=== PATIENT | male | born 1955 | race Caucasian/White ===

== ENCOUNTER 2018-03-15 11:35 | Inpatient (IN) | payer OTHER ==
[2018-03-15 11:45] VITALS: BMI 33.4
--- NOTE | 2018-03-15 11:58 | PDOC ---
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 Mckenzie's office after a lab test this week with creatinine of 4. Pt states he has been feeling more fatigued over the past few weeks. Dr. Mckenzie has made recent changes to his medications , including dc his carvedilol and pausing his atorvastatin due to the fatigue. The pt takes his glucose at home and is normally 100-140 in the AM. Pt denies any fevers/chills, headache, vision changes, syncope, chest pain, palpitations, SOB, nausea/vomiting, abdominal pain, urinary symptoms, diarrhea/constipation, or leg swelling. Social: Pt denies any cigarette, alcohol, or drug use. Pt denies any recent travel or sick contacts. Surgical: nephrectomy, 2 bowel obstructions. Family: no relevant history. 03/15/18 12:59 Past History - Past Medical History Allergies/Adverse Reactions: Allergies Allergy/AdvReac Type Severity Reaction Status Date / Time No Known Allergies Allergy Verified 03/15/18 11:45 Home Medications: Ambulatory Orders Aspirin [Ecotrin] 81 mg PO DAILY 09/03/15 Amlodipine Besylate 5 mg PO DAILY 10/06/15 Atorvastatin Ca [Lipitor] 20 mg PO HS 03/15/18 Cyanocobalamin [Vitamin B12 -] 1,000 mcg PO DAILY 03/15/18 [place]-3 Fatty Acids/Fish Oil [Fish Oil 1,000 mg Capsule] 1 each PO DAILY Anemia: No Asthma: No Cancer: No Cardiac Disorders: No CVA: No COPD: No CHF: No Dementia: No Diabetes: Yes GI Disorders: No Disorders: No HTN: Yes Hypercholesterolemia: Yes Liver Disease: No Seizures: No - Surgical History Abdominal Surgery: No Appendectomy: Yes Cardiac Surgery: No Cholecystectomy: No Lung Surgery: No Neurologic Surgery: No Orthopedic Surgery: Yes (rotator cuff right shoulder) - Suicide/Smoking/Psychosocial Hx Smoking History: Never smoked Have you smoked in the past 12 months: No Number of Cigarettes Smoked Daily: 0 Hx Alcohol Use: No Drug/Substance Use Hx: No Substance Use Type: None Hx Substance Use Treatment: No Review of Systems - Review of Systems Able to Perform ROS?: Yes Is the patient limited Russian proficient: No Constitutional: Yes: See HPI, Malaise, Weight Stable. No: Chills, Diaphoresis, Fever, Loss of Appetite, Weakness HEENTM: No: Blurred Vision, Recent change in vision, Double Vision, Nose Congestion, Throat Pain, Throat Swelling Respiratory: No: Cough, Orthopnea, Shortness of Breath Cardiac (ROS): No: Chest Pain, Edema, Irregular Heart Rate, Lightheadedness, Palpitations, Syncope, Chest Tightness ABD/GI: No: Constipated, Diarrhea, Nausea, Poor Appetite, Poor Fluid Intake, Vomiting, Abdominal cramping : No: Burning, Dysuria, Pain, Urgency Musculoskeletal: No: Back Pain, Joint Pain, Muscle Pain, Muscle Weakness Integumentary: Yes: Other (Healing ulcer on bottom of L great toe, no redness or drainage). No: Rash Neurological: No: Headache, Numbness, Paresthesia, Seizure, Tingling, Tremors, Weakness (generalized fatigue, no muscle weakness), Unsteady Gait, Ataxia, Dizziness Psychiatric: No: Sleep Pattern Change, Change in Appetite Endocrine: No: Increased Thirst, Increased Urine, Change in Weight Hematologic/Lymphatic: No: Anemia, Blood Clots, Easy Bleeding, Easy Bruising All Other Systems: Reviewed and Negative *Physical Exam - Vital Signs Last Vital Signs Temp Pulse Resp BP Pulse Ox 98.2 F 118 H 18 176/90 H 98 03/15/18 11:43 03/15/18 11:43 03/15/18 11:43 03/15/18 11:43 03/15/18 11:43 - Physical Exam Comments: HR 118, BP 176/90 (improved to 150/80 and HR 100 on exam), pt afebrile. Pt in NAD, overweight. PE showed pt alert and oriented. contractor general engineering generally intact, muscular strength and sensation intact. No decreased sensation over the LE or feet b/l. Oropharynx without erythema or exudates. No nasal congestion, hearing intact. Clear heart sounds, S1/S2, no JVD, b/l pedal edema, or heart murmur. Clear lung sounds, no respiratory distress, wheezes, crackles, accessory muscle use, or respiratory distress. No abdominal or CVA tenderness to palpation, no rebound, no guarding. Abdomen soft, but protuberant, and with normoactive bowel sounds. Skin without jaundice or rash. Small (stage 2) ulcer on R great toe, appears well-healing, no erythema, warmth, or drainage. 03/15/18 13:04 Moderate Sedation - Procedure Monitoring Vital Signs: Procedure Monitoring Vital Signs Temperature 98.2 F 03/15/18 11:43 Pulse Rate 118 H 03/15/18 11:43 Respiratory Rate 18 03/15/18 11:43 Blood Pressure 176/90 H 03/15/18 11:43 O2 Sat by Pulse Oximetry (%) 98 03/15/18 11:43 ED Treatment Course - LABORATORY CBC & Chemistry Diagram: 03/15/18 12:27 03/15/18 12:27 Medical Decision Making - Medical Decision Making Pt was seen at bedside, also will be seen by attending Dr. Lewis. Pt presenting as a follow-up from Dr. Mckenzie's office after a lab test this week with creatinine of 4. Pt states he has been feeling more fatigued over the past few weeks. Dr. Mckenzie has made recent changes to his medications, including dc his carvedilol and pausing his atorvastatin due to the fatigue. The pt takes his glucose at home and is normally 100-140 in the AM. Pt denies any fevers/ chills, headache, vision changes, syncope, chest pain, palpitations, SOB, nausea /vomiting, abdominal pain, urinary symptoms, diarrhea/constipation, or leg swelling. HR 118, BP 176/90 (improved to 150/80 and HR 100 on exam), pt afebrile. Pt in NAD, overweight. PE showed pt alert and oriented. contractor general engineering generally intact, muscular strength and sensation intact. Oropharynx without erythema or exudates. No nasal congestion, hearing intact. Clear heart sounds, S1/S2, no JVD , b/l pedal edema, or heart murmur. Clear lung sounds, no respiratory distress, wheezes, crackles, accessory muscle use, or respiratory distress. No abdominal or CVA tenderness to palpation, no rebound, no guarding. Abdomen soft, but protuberant, and with normoactive bowel sounds. Skin without jaundice or rash. Small (stage 2) ulcer on R great toe, appears well-healing, no erythema, warmth , or drainage. Likely worsening renal function 2/2 CKD/Wilmm's Tumor; Fatigue could be 2/2 to a variety of factors including CKD, anemia, infection, ACS, new HF. Pt was initially HTN and tachycardic, consider PE, but vitals are improving now that he is less anxious. Will keep on the differential. Ordered work-up including CBC, CMP, Mg, Phos, PT/INR, cardiac profile, ECG, UA, urine culture. No interventions needed at this time. Pt BP and HR improving, will monitor for needed interventions. Will continue to reassess pt and monitor for symptomatic improvement. ECG: Sinus tachycardia, HR 105, intervals WNL. No TWIs or significant ST segment changes. 03/15/18 12:35 CMP: K 4.6, BUN 51, Cr 4.6 (was 1.5-2.1 in [id number]) Trop .06, CK 413 -- likely demand and worsening CKD UA: 3+ protein, 3+ glucose, 2+ blood 03/15/18 13:11 H/H WNL, no anemia CK index 4.4, CKMB 18.4 Will provide aspirin, pt took 81 mg this AM. 03/15/18 13:[address] Mckenzie for admission -- paged at 13:[address] Mckenzie, prefers Dr. Silva/Joseph team for admission. Paging Shira/Joseph team 13:53 03/15/18 13:53 Dr. Ruiz/Shira team accepted pt for admission (spoke with LAB TECH for team) Consults placed for nephro (Dr. Bess) and cards (Dr. Quigley) Pt comfortable, on telemetry box. Ordered second troponin test. 03/15/18 13:59 *DC/Admit/Observation/Transfer Diagnosis at time of Disposition: Acute kidney injury superimposed on chronic kidney disease, Elevated serum creatinine, Troponin I above reference range - Discharge Dispostion Condition at time of disposition: Stable Decision to Admit order: Yes - Referrals Referrals: Flex Mckenzie MD [Primary Care Provider] - - Patient Instructions - Post Discharge Activity
--- NOTE | 2018-03-15 12:29 | PDOC ---
Attending Attestation - Resident Resident Name: Gretchen Vance - ED Attending Attestation I have performed the following: I have examined & evaluated the patient, The case was reviewed & discussed with the resident, I agree w/resident's findings & plan, Exceptions are as noted - Physicial Exam PE: 03/15/18 13:23 awake alert lungs clear bilaterally heart rrr no mrg abd soft nt nd. ext wwp. bilat leg edema. right foot with chronic ankle deformity. nuero alert oriented x 3. skin warm and dry. - Medical Decision Making 03/15/18 13:23 62 yo male wit h/o HTN HLD DM single kidney ( wilms tumor as chilc nephrectomy) here with worsenign renal failure. pt describing intermittent sob, fatigue, anorexia. no f/c no chest pain no mod factors. on exam awake alert lungs clear bilaterally abd soft obese. skin warm an dry differential anemia. worsenign renal failure. pulm edema. dave, infection . plan labs ekg cxr trop. will likely require admission. renal failure with creatinine 4. katia admit cosult nephrology will dr. 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 Damon office with abnormal lab results. The patient was seen at the PCPs office where he had blood work done. The blood work was significant for Creatinine level of 4. The patient reports associated symptoms of feeling fatigue. Denies fever, chills, urinary symptoms, nausea, vomiting, chest pain. Allergies: NKDA PCP: Dr. Ornelas. - Medical Decision Making 03/15/18 13:37 Documentation prepared by Tiny Quevedo, acting as director of medical review for Cheyenne Lewis MD. <Tiny Quevedo - Last Filed: 03/15/18 13:37> Heart Score/ECG Review #1 General ECG Interpretation: Sinus Rhythm, Normal Intervals, No acute ischemic changes Compared to previous ECG there are: Other (sinus tachycardia 105.) <Cheyenne Lewis - Last Filed: 03/15/18 13:22>
[2018-03-15 12:50] LABS: INR 1.03 (0.83-1.09); PROTHROMBIN TIME (PATIENT) 12.1 SEC (9.7-13.0)
[2018-03-15 12:56] LABS: ALBUMIN 3.2 g/dl (3.4-5.0); ALK PHOS 148 U/L (45-117); ANION GAP 8 MMOL/L (8-16); BILIRUBIN,TOTAL 0.3 mg/dL (0.2-1); BLOOD UREA NITROGEN 51 mg/dL (7-18); CALCIUM 8.7 mg/dL (8.5-10.1); CHLORIDE 109 mmol/L (98-107); CO2 23 mmol/L (21-32); CREATININE 4.6 mg/dL (0.55-1.3); GLUCOSE,RANDOM 137 mg/dL (74-106); MAGNESIUM 2.2 mg/dL (1.8-2.4); PHOSPHOROUS 3.8 mg/dL (2.5-4.9); POTASSIUM 4.6 mmol/L (3.5-5.1); SGOT/AST 27 U/L (15-37); SGPT/ALT 26 U/L (13-61); SODIUM 140 mmol/L (136-145); TOT PROT 6.5 g/dl (6.4-8.2)
[2018-03-15 13:06] LABS: URINE APPEARANCE SLCLOUDY; URINE BILIRUBIN NEGATIVE (<2.0 mg/dL); URINE COLOR LTYELLOW; URINE GLUCOSE (UA) 3+ (NEGATIVE); URINE KETONE NEGATIVE (NEGATIVE); URINE LEUK ESTERASE NEGATIVE (NEGATIVE); URINE NITRITE NEGATIVE (NEGATIVE); URINE PROTEIN 3+ (NEGATIVE); URINE UROBILINOGEN NEGATIVE mg/dL (0.2-1.0)
[2018-03-15 13:09] LABS: URINE BACTERIA RARE /hpf (NONE SEEN); URINE MUCUS RARE
[2018-03-15 13:15] LABS: BASO % 1.3 % (0-2.0); EOS % 2.7 % (0-4.5); HEMATOCRIT 39.6 % (35.4-49); HEMOGLOBIN 13.5 GM/dL (11.7-16.9); LYMPH % 12.7 % (8-40); MCH 28.5 pg (25.7-33.7); MCHC 34.2 g/dl (32.0-35.9); MEAN CELL VOLUME 83.3 fl (80-96); MEAN PLT VOLUME 7.5 fl (7.5-11.1); MONO % 6.5 % (3.8-10.2); NEUT % 76.8 % (42.8-82.8); PLATELET COUNT 238 K/MM3 (134-434); RBC 4.75 M/mm3 (4.00-5.60); RDW 14.3 % (11.9-15.9); WHITE BLOOD COUNT 6.2 K/mm3 (4.0-10.0)
[2018-03-15] MEDS ORDERED: ASPIRIN 81 MG CHEWABLE TABLETS PO ONE (13:19)
[2018-03-15] MEDS ORDERED: ASPIRIN 81 MG CHEWABLE TABLETS ONE (13:33)
[2018-03-15] MEDS ORDERED: amLODIPine BESYLATE 5 MG TABLET (FP) PO ONE (14:59)
[2018-03-15] MEDS ORDERED: amLODIPine BESYLATE 5 MG TABLET (FP) ONE (15:02)
--- NOTE | 2018-03-15 15:25 | CON.CARD ---
Consult Consult Specialty:: Cardiology - History of Present Illness History of Present Illness: 62 yo M, with PMH of HTN, HLD, IDDM with foot ulcers including osteomyelitis, and CKD who presenting as a follow-up from Dr. Mckenzie's office after a lab test this week with creatinine of 4. Pt states he has been feeling more fatigued over the past few weeks. Denies any fevers/chills, headache, vision changes, syncope, chest pain, palpitations, SOB, nausea/vomiting, abdominal pain , urinary symptoms, diarrhea/constipation, or leg swelling. - History Source History Provided By: Patient Limitations to Obtaining History: No Limitations - Past Medical History Cardio/Vascular: Yes: HTN, Hyperlipdemia Endocrine: Yes: Diabetes Mellitus - Alcohol/Substance Use Hx Alcohol Use: No - Smoking History Smoking history: Never smoked Have you smoked in the past 12 months: No Aproximately how many cigarettes per day: 0 Home Medications - Allergies Allergies/Adverse Reactions: Allergies Allergy/AdvReac Type Severity Reaction Status Date / Time No Known Allergies Allergy Verified 03/15/18 11:45 - Home Medications Home Medications: Ambulatory Orders Aspirin [Ecotrin] 81 mg PO DAILY 09/03/15 Amlodipine Besylate 5 mg PO DAILY 10/06/15 Atorvastatin Ca [Lipitor] 20 mg PO HS 03/15/18 Cyanocobalamin [Vitamin B12 -] 1,000 mcg PO DAILY 03/15/18 [place]-3 Fatty Acids/Fish Oil [Fish Oil 1,000 mg Capsule] 1 each PO DAILY Review of Systems - Review of Systems Constitutional: reports: No Symptoms Eyes: reports: No Symptoms HENT: reports: No Symptoms Neck: reports: No Symptoms Cardiovascular: reports: No Symptoms Respiratory: reports: No Symptoms Gastrointestinal: reports: No Symptoms Vital Signs: Vital Signs Temperature 98.2 F 03/15/18 11:43 Pulse Rate 88 03/15/18 14:59 Respiratory Rate 18 03/15/18 14:59 Blood Pressure 171/99 H 03/15/18 14:59 O2 Sat by Pulse Oximetry (%) 99 03/15/18 14:59 Constitutional: Yes: Well Nourished, No Distress, Calm Eyes: Yes: Conjunctiva Clear, EOM Intact HENT: Yes: Atraumatic, Normocephalic Neck: Yes: Supple, Trachea Midline Respiratory: Yes: Regular, CTA Bilaterally Gastrointestinal: Yes: Normal Bowel Sounds, Soft Cardiovascular: Yes: Regular Rate and Rhythm JVD: No Carotid Bruit: No PMI: Non-Displaced Heart Sounds: Yes: S1, S2 Murmur: No: Systolic Murmur, Diastolic Murmur Musculoskeletal: Yes: WNL Extremities: Yes: WNL Edema: No - Other Data Labs, Other Data: CBC, BMP 03/15/18 12:27 03/15/18 12:27 INR, PTT INR 1.03 (0.83-1.09) 03/15/18 12:27 Troponin, BNP 03/15/18 12:27 Troponin I 0.06 H Troponin, BNP 03/15/18 12:27 Troponin I 0.06 H Problem List - Problems (1) Acute kidney injury superimposed on chronic kidney disease Code(s): N17.9 - ACUTE KIDNEY FAILURE, UNSPECIFIED; N18.9 - CHRONIC KIDNEY DISEASE, UNSPECIFIED (2) Elevated serum creatinine Code(s): R79.89 - OTHER SPECIFIED ABNORMAL FINDINGS OF BLOOD CHEMISTRY Assessment/Plan 62 yo M, with PMH of HTN, HLD, IDDM with foot ulcers including osteomyelitis, and CKD who presenting as a follow-up from Dr. Mckenzie's office after a lab test this week with creatinine of 4. Pt states he has been feeling more fatigued over the past few weeks. Denies any fevers/chills, headache, vision changes, syncope, chest pain, palpitations, SOB, nausea/vomiting, abdominal pain , urinary symptoms, diarrhea/constipation, or leg swelling. A stress test in 2016 showed normal EF and perfusion. Continue to adjust BP medications with goal <140/80 Continue statin Not volume overloaded. Minimal TP elevation is in the setting of renal failure and non-ischemic. Call PRN
--- NOTE | 2018-03-15 17:23 | CON.NEP ---
Consult Consult Specialty:: nephrology Reason for Consultation:: ckd - History of Present Illness Chief Complaint: abnormal labs History of Present Illness: 62 yo M, with PMH of HTN, HLD, IDDM with foot ulcers including osteomyelitis, and CKD who presenting as a follow-up from Dr. Mckenzei's office after a lab test this week with creatinine of 4. Pt states he has been feeling more fatigued over the past few weeks. Denies any fevers/chills, headache, vision changes, syncope, chest pain, palpitations, SOB, nausea/vomiting, abdominal pain , urinary symptoms, diarrhea/constipation, or leg swelling. He also has history of wilms tumor and had anephrectomy at age 4 followed by radiation. He has no urinary complaints and has no dyspnea. Says he lost contact with doctors because he did not have insurance. In fact he fractured his ankle and did not seek medical attention and has chronic pain as a result. - History Source History Provided By: Patient Limitations to Obtaining History: No Limitations - Past Medical History Cardio/Vascular: Yes: HTN, Hyperlipdemia Renal/: Yes: Renal Inusuff, Other (wilms tumor) Musculoskeletal: Yes: Other (scoliosis) Endocrine: Yes: Diabetes Mellitus - Past Surgical History Past Surgical History: Yes: Nephrectomy - Alcohol/Substance Use Hx Alcohol Use: No - Smoking History Smoking history: Never smoked Have you smoked in the past 12 months: No Aproximately how many cigarettes per day: 0 Home Medications - Allergies Allergies/Adverse Reactions: Allergies Allergy/AdvReac Type Severity Reaction Status Date / Time No Known Allergies Allergy Verified 03/15/18 11:45 - Home Medications Home Medications: Ambulatory Orders Aspirin [Ecotrin] 81 mg PO DAILY 09/03/15 Amlodipine Besylate 5 mg PO DAILY 10/06/15 Atorvastatin Ca [Lipitor] 20 mg PO HS 03/15/18 Cyanocobalamin [Vitamin B12 -] 1,000 mcg PO DAILY 03/15/18 [place]-3 Fatty Acids/Fish Oil [Fish Oil 1,000 mg Capsule] 1 each PO DAILY Review of Systems - Review of Systems Constitutional: reports: No Symptoms Eyes: reports: No Symptoms HENT: reports: No Symptoms Neck: reports: No Symptoms Cardiovascular: reports: No Symptoms Respiratory: reports: No Symptoms Gastrointestinal: reports: No Symptoms Genitourinary: reports: No Symptoms Musculoskeletal: reports: Joint Swelling Integumentary: reports: No Symptoms Neurological: reports: No Symptoms Endocrine: reports: No Symptoms Hematology/Lymphatic: reports: No Symptoms Psychiatric: reports: No Symptoms Nephrology Consult - Height Height: 5 ft 8 in - Weight Weight: 220 lb - BMI Body Mass Index (BMI): 33.4 - Lab Results CBC,BMP: CBC, BMP 03/15/18 12:27 03/15/18 12:27 Anion Gap: Anion Gap Anion Gap 8 MMOL/L (8-16) 03/15/18 12:27 - Physical Examination Vital Signs: Vital Signs Temperature 98.2 F 03/15/18 11:43 Pulse Rate 88 03/15/18 14:59 Respiratory Rate 18 03/15/18 14:59 Blood Pressure 171/99 H 03/15/18 14:59 O2 Sat by Pulse Oximetry (%) 99 03/15/18 14:59 Constitutional: Yes: Well Nourished, No Distress, Calm Eyes: Yes: Conjunctiva Clear HENT: Yes: Atraumatic, Normocephalic Neck: Yes: Supple, Trachea Midline Cardiovascular: Yes: Regular Rate and Rhythm Respiratory: Yes: Regular, CTA Bilaterally Gastrointestinal: Yes: Normal Bowel Sounds Renal/: Yes: WNL Musculoskeletal: Yes: Other (fractured right ankle healed abnormally) Extremities: Yes: WNL Edema: No Integumentary: Yes: WNL Wound/Incision: Yes: Clean/Dry Neurological: Yes: Alert, Oriented Psychiatric: Yes: Alert, Oriented Assessment/Plan IMPRESSION Pt has renal insufficiency which is likely progression of kidney disease since he has been unable to get medical follow up. His hgb is great and he has no signs of uremia taht would require emergent hd PLAN would obtain renal sono repeat bmp in am check [id number] control BP- can add small dose of brando inhibitor and keep on amlodipine or switch to cardizem for additional antiproteinuric effect hemodialysis, peritoneal dialysis and transplantation discussed with pt would have vascular evaluate for future fistula MV
[2018-03-15] MEDS ORDERED: LISINOPRIL 5 MG TABLET (FP) PO ONE (17:43)
--- NOTE | 2018-03-15 18:22 | HP ---
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 Patient presented to ER as follow up from Dr. Mckenzie after labs last week show Cr level of 4. Patient complain of increased fatigue. Denies chest pain, SOB, or dizziness. History Source: Patient Limitations to Obtaining History: No Limitations - Past Medical History Cardiovascular: Yes: HTN, Hyperlipdemia Renal/: Yes: Renal Inusuff, Other (wilms tumor) Musculoskeletal: Yes: Other (scoliosis) Endocrine: Yes: Diabetes Mellitus - Past Surgical History Past Surgical History: Yes: Appendectomy, Nephrectomy - Smoking History Smoking history: Never smoked Have you smoked in the past 12 months: No Aproximately how many cigarettes per day: 0 - Alcohol/Substance Use Hx Alcohol Use: No - Social History Usual Living Arrangement: Yes: With Spouse ADL: Independent <May Sexton - Last Filed: 03/15/18 18:16> Home Medications <May Sexton - Last Filed: 03/15/18 18:16> <Michelle Ruiz - Last Filed: 03/16/18 09:10> - Allergies Allergies/Adverse Reactions: Allergies Allergy/AdvReac Type Severity Reaction Status Date / Time No Known Allergies Allergy Verified 03/15/18 11:45 - Home Medications Home Medications: Ambulatory Orders Aspirin [Ecotrin] 81 mg PO DAILY 09/03/15 Amlodipine Besylate 5 mg PO DAILY 10/06/15 Atorvastatin Ca [Lipitor] 20 mg PO HS 03/15/18 Cyanocobalamin [Vitamin B12 -] 1,000 mcg PO DAILY 03/15/18 [place]-3 Fatty Acids/Fish Oil [Fish Oil 1,000 mg Capsule] 1 each PO DAILY Review of Systems - Review of Systems Constitutional: reports: Other (fatigue) Eyes: reports: No Symptoms HENT: reports: No Symptoms Neck: reports: No Symptoms Cardiovascular: reports: No Symptoms Respiratory: reports: No Symptoms Gastrointestinal: reports: No Symptoms Genitourinary: reports: No Symptoms Breasts: reports: No Symptoms Reported Musculoskeletal: reports: No Symptoms Integumentary: reports: No Symptoms Neurological: reports: No Symptoms Endocrine: reports: No Symptoms Hematology/Lymphatic: reports: No Symptoms Psychiatric: reports: No Symptoms <May Sexton - Last Filed: 03/15/18 18:16> Physical Examination Vital Signs: Vital Signs Temperature 98.2 F 03/15/18 11:43 Pulse Rate 88 03/15/18 14:59 Respiratory Rate 18 03/15/18 14:59 Blood Pressure 171/99 H 03/15/18 14:59 O2 Sat by Pulse Oximetry (%) 99 03/15/18 14:59 Constitutional: Yes: Well Nourished, No Distress, Calm Eyes: Yes: Conjunctiva Clear HENT: Yes: Normocephalic Neck: Yes: Supple Cardiovascular: Yes: Regular Rate and Rhythm Respiratory: Yes: Regular, CTA Bilaterally Gastrointestinal: Yes: Normal Bowel Sounds, Soft Musculoskeletal: Yes: WNL, Joint Swelling Extremities: Yes: Other (R ankle swelling 2/2 abnormal healed fracture) Neurological: Yes: Alert, Oriented Psychiatric: Yes: Alert, Oriented Labs: CBC, BMP 03/15/18 12:27 03/15/18 12:27 Troponin, BNP 03/15/18 12:27 Troponin I 0.06 H <May Sexton - Last Filed: 03/15/18 18:16> Vital Signs: Vital Signs Temperature 98.0 F 03/16/18 06:00 Pulse Rate 93 H 03/16/18 06:00 Respiratory Rate 18 03/16/18 06:00 Blood Pressure 161/98 03/16/18 06:00 O2 Sat by Pulse Oximetry (%) 97 03/15/18 21:00 Labs: CBC, BMP 03/15/18 12:27 03/15/18 12:27 <Michelle Ruiz - Last Filed: 03/16/18 09:10> Problem List - Problems (1) Acute kidney injury superimposed on chronic kidney disease Assessment/Plan: -renal on board -pending renal US -BUN/Cr 51/4.6, will monitor Code(s): N17.9 - ACUTE KIDNEY FAILURE, UNSPECIFIED; N18.9 - CHRONIC KIDNEY DISEASE, UNSPECIFIED (2) Elevated serum creatinine Assessment/Plan: -renal on board -will trend Cr level -pending renal sono Code(s): R79.89 - OTHER SPECIFIED ABNORMAL FINDINGS OF BLOOD CHEMISTRY (3) Troponin I above reference range Assessment/Plan: -troponin 0.06, will trend -tele monitoring -cardiology consult appreciated Code(s): R74.8 - ABNORMAL LEVELS OF OTHER SERUM ENZYMES (4) Diabetes Assessment/Plan: -endocrinology consult -HgA1c ordered -diabetic diet -BGM ACHS, ISS Code(s): E11.9 - TYPE 2 DIABETES MELLITUS WITHOUT COMPLICATIONS Qualifiers: Diabetes mellitus type: type 1 Diabetes mellitus complication status: with skin complications Diabetes mellitus complication detail: with foot ulcer Qualified Code(s): E10.621 - Type 1 diabetes mellitus with foot ulcer (5) HTN (hypertension) Assessment/Plan: -cont amlodipine -VS q8h -if BP cont to stay elev will consider adding low dose MERRILL inhibitor Code(s): I10 - ESSENTIAL (PRIMARY) HYPERTENSION Qualifiers: Hypertension type: essential hypertension Qualified Code(s): I10 - Essential (primary) hypertension (6) Hypercholesterolemia Assessment/Plan: -cont atorvastatin -lipid panel ordered Code(s): E78.0 - PURE HYPERCHOLESTEROLEMIA * DO NOT USE * <May Sexton - Last Filed: 03/15/18 18:16> Assessment/Plan dvt ppx <May Sexton - Last Filed: 03/15/18 18:16> PATIENT SEEN AND EXAMINED AND I AGREE WITH THE ABOVE NOTE <Michelle Ruiz - Last Filed: 03/16/18 09:10>
--- NOTE | 2018-03-15 20:31 | CONSULT ---
Consult Consult Specialty:: endocrine Reason for Consultation:: dm2 uncontrolled - History of Present Illness Chief Complaint: shortness of breath advised to present to ed [facility] History of Present Illness: 62 yo M, with PMH of wilms tumor,sp nephrectomy,HTN, HLD, IDDM with foot ulcers including osteomyelitis, and CKD who presenting for evaluation bw performed as outpatient shows ARF,with creatinine of 4.HE has been feeling short of breath, and weak,high sugars on glucose checks, Denies any fevers/chills, headache, vision changes, syncope, - Past Medical History Cardio/Vascular: Yes: HTN, Hyperlipdemia Renal/: Yes: Renal Inusuff, Other (wilms tumor) Musculoskeletal: Yes: Other (scoliosis) Endocrine: Yes: Diabetes Mellitus - Past Surgical History Past Surgical History: Yes: Appendectomy, Nephrectomy - Alcohol/Substance Use Hx Alcohol Use: No - Smoking History Smoking history: Never smoked Have you smoked in the past 12 months: No Aproximately how many cigarettes per day: 0 - Social History ADL: Independent Home Medications - Allergies Allergies/Adverse Reactions: Allergies Allergy/AdvReac Type Severity Reaction Status Date / Time No Known Allergies Allergy Verified 03/15/18 11:45 - Home Medications Home Medications: Ambulatory Orders Aspirin [Ecotrin] 81 mg PO DAILY 09/03/15 Amlodipine Besylate 5 mg PO DAILY 10/06/15 Atorvastatin Ca [Lipitor] 20 mg PO HS 03/15/18 Cyanocobalamin [Vitamin B12 -] 1,000 mcg PO DAILY 03/15/18 [place]-3 Fatty Acids/Fish Oil [Fish Oil 1,000 mg Capsule] 1 each PO DAILY Review of Systems - Review of Systems Constitutional: reports: Lethargy, Weakness Eyes: reports: Blurred Vision HENT: reports: No Symptoms Neck: reports: No Symptoms Cardiovascular: reports: Shortness of Breath Respiratory: reports: Exercise Intolerance, SOB on Exertion Gastrointestinal: reports: Bloating Genitourinary: reports: Frequency Breasts: reports: No Symptoms Reported Musculoskeletal: reports: Joint Swelling, Muscle Pain, Muscle Cramps, Muscle Weakness Neurological: reports: Numbness, Weakness Endocrine: reports: Unexplained Weight Gain Physical Exam Vital Signs: Vital Signs Temperature 98 F 03/15/18 19:13 Pulse Rate 72 03/15/18 19:13 Respiratory Rate 18 03/15/18 19:13 Blood Pressure 168/78 03/15/18 19:13 O2 Sat by Pulse Oximetry (%) 99 03/15/18 14:59 Constitutional: Yes: Anxious Eyes: Yes: EOM Intact HENT: Yes: Normocephalic Neck: Yes: Trachea Midline Cardiovascular: Yes: Regular Rate and Rhythm, Murmur Respiratory: Yes: CTA Bilaterally, Tachypnea Gastrointestinal: Yes: Normal Bowel Sounds, Abdomen, Obese ...Rectal Exam: Yes: Deferred Renal/: Yes: WNL Breast(s): Yes: WNL Musculoskeletal: Yes: Back Pain Extremities: Yes: Delayed Capillary Refill Edema: Yes Edema: LLE: Trace, RLE: Trace Peripheral Pulses WNL: Yes Neurological: Yes: Alert, Oriented Labs: CBC, BMP 03/15/18 12:27 03/15/18 12:27 Problem List - Problems (1) Acute kidney injury superimposed on chronic kidney disease Code(s): N17.9 - ACUTE KIDNEY FAILURE, UNSPECIFIED; N18.9 - CHRONIC KIDNEY DISEASE, UNSPECIFIED (2) Elevated serum creatinine Code(s): R79.89 - OTHER SPECIFIED ABNORMAL FINDINGS OF BLOOD CHEMISTRY (3) Troponin I above reference range Code(s): R74.8 - ABNORMAL LEVELS OF OTHER SERUM ENZYMES (4) Acute renal failure Code(s): N17.9 - ACUTE KIDNEY FAILURE, UNSPECIFIED (5) Chest pain Code(s): R07.9 - CHEST PAIN, UNSPECIFIED Qualifiers: Chest pain type: precordial chest pain (6) Diabetes Code(s): E11.9 - TYPE 2 DIABETES MELLITUS WITHOUT COMPLICATIONS Qualifiers: Diabetes mellitus type: type 1 Diabetes mellitus complication status: with skin complications Diabetes mellitus complication detail: with foot ulcer Qualified Code(s): E10.621 - Type 1 diabetes mellitus with foot ulcer (7) HTN (hypertension) Code(s): I10 - ESSENTIAL (PRIMARY) HYPERTENSION Qualifiers: Hypertension type: essential hypertension Qualified Code(s): I10 - Essential (primary) hypertension (8) Hypercholesterolemia Code(s): E78.0 - PURE HYPERCHOLESTEROLEMIA * DO NOT USE * Assessment/Plan Current Active Problems Acute kidney injury superimposed on chronic kidney disease (Acute) Elevated serum creatinine (Acute) Troponin I above reference range (Acute) dm2 ckd htn ashd hyperlipidemia Abnormal Lab Results 03/15/18 03/15/18 03/15/18 12:27 12:52 18:45 Chloride 109 H BUN 51 H Creatinine 4.6 H Random Glucose 137 H Alkaline Phosphatase 148 H Creatine Kinase 413 H CK-MB (CK-2) 18.4 H Troponin I 0.06 H 0.06 H Albumin 3.2 L Urine Protein 3+ H Urine Glucose (UA) 3+ H Urine Blood 2+ H Laboratory Results - last 24 hr 03/15/18 03/15/18 03/15/18 12:27 12:27 12:27 WBC 6.2 RBC 4.75 Hgb 13.5 Hct 39.6 MCV 83.3 MCH 28.5 MCHC 34.2 RDW 14.3 Plt Count 238 MPV 7.5 Absolute Neuts (auto) 4.7 Neutrophils % 76.8 Lymphocytes % 12.7 D Monocytes % 6.5 Eosinophils % 2.7 Basophils % 1.3 Nucleated RBC % 0 PT with INR 12.10 INR 1.03 Sodium 140 Potassium 4.6 Chloride 109 H Carbon Dioxide 23 Anion Gap 8 BUN 51 H Creatinine 4.6 H Creat Clearance w eGFR 13.01 POC Glucometer Random Glucose 137 H Calcium 8.7 Phosphorus 3.8 Magnesium 2.2 Total Bilirubin 0.3 AST 27 ALT 26 Alkaline Phosphatase 148 H Creatine Kinase 413 H Creatine Kinase Index 4.4 CK-MB (CK-2) 18.4 H Troponin I 0.06 H Total Protein 6.5 Albumin 3.2 L Urine Color Urine Appearance Urine pH Ur Specific [place] Urine Protein Urine Glucose (UA) Urine Ketones Urine Blood Urine Nitrite Urine Bilirubin Urine Urobilinogen Ur Leukocyte Esterase Urine WBC (Auto) Urine RBC (Auto) Urine Bacteria Urine Mucus 03/15/18 03/15/18 03/15/18 12:52 17:42 18:45 WBC RBC Hgb Hct MCV MCH MCHC RDW Plt Count MPV Absolute Neuts (auto) Neutrophils % Lymphocytes % Monocytes % Eosinophils % Basophils % Nucleated RBC % PT with INR INR Sodium Potassium Chloride Carbon Dioxide Anion Gap BUN Creatinine Creat Clearance w eGFR POC Glucometer 92 Random Glucose Calcium Phosphorus Magnesium Total Bilirubin AST ALT Alkaline Phosphatase Creatine Kinase Creatine Kinase Index CK-MB (CK-2) Troponin I 0.06 H Total Protein Albumin Urine Color Ltyellow Urine Appearance Slcloudy Urine pH 5.0 Ur Specific [place] 1.016 Urine Protein 3+ H Urine Glucose (UA) 3+ H Urine Ketones Negative Urine Blood 2+ H Urine Nitrite Negative Urine Bilirubin Negative Urine Urobilinogen Negative Ur Leukocyte Esterase Negative Urine WBC (Auto) <1 Urine RBC (Auto) 1 Urine Bacteria Rare Urine Mucus Rare 03/15/18 18:58 WBC RBC Hgb Hct MCV MCH MCHC RDW Plt Count MPV Absolute Neuts (auto) Neutrophils % Lymphocytes % Monocytes % Eosinophils % Basophils % Nucleated RBC % PT with INR INR Sodium Potassium Chloride Carbon Dioxide Anion Gap BUN Creatinine Creat Clearance w eGFR POC Glucometer Random Glucose Calcium Phosphorus Magnesium Total Bilirubin AST ALT Alkaline Phosphatase Creatine Kinase Creatine Kinase Index CK-MB (CK-2) Troponin I Cancelled Total Protein Albumin Urine Color Urine Appearance Urine pH Ur Specific [place] Urine Protein Urine Glucose (UA) Urine Ketones Urine Blood Urine Nitrite Urine Bilirubin Urine Urobilinogen Ur Leukocyte Esterase Urine WBC (Auto) Urine RBC (Auto) Urine Bacteria Urine Mucus plan: bgm qid novolog insulin doses levemir 15 units am when appetite improves ck hba1c renal consult appreciated sonogram pending
[2018-03-15] MEDS: INSULIN SLIDING SCALE (NOVOLOG) 1 VIAL SQ SCH (22:00)
[2018-03-15] MEDS: ATORVASTATIN CA 20 MG TABLET (FP) PO SCH (22:00)
[2018-03-16] MEDS ORDERED: POTASSIUM CHLORIDE 10 MEQ in SODIUM CHLORIDE 0.45% 1,000 ML IVPB SCH (01:15)
[2018-03-16] MEDS ORDERED: SODIUM CHLORIDE 0.45% 1,000 ML IV SCH (03:45)
[2018-03-16] MEDS: INSULIN SLIDING SCALE (NOVOLOG) 1 VIAL SQ SCH ×4 (06:40→21:06)
[2018-03-16 07:12] LABS: CHOLESTEROL 134 mg/dL (50-200); HDL CHOLESTEROL 34 mg/dL (40-60); TRIGLYCERIDES 179 mg/dL (0-150)
[2018-03-16] MEDS ORDERED: PT OWN MED DRAWER 7, Y5N ONE (09:43)
[2018-03-16] MEDS: OMEGA-3 ACID ETHYL ESTERS (FATTY-ACIDS) 1 GM CAPSULE (FP) PO SCH (09:49)
[2018-03-16] MEDS: CYANOCOBALAMIN 1,000 MCG TABLET (FP) PO SCH (09:49)
[2018-03-16] MEDS: ASPIRIN COATED 81 MG TABLET.EC PO SCH (09:49)
[2018-03-16] MEDS: amLODIPine BESYLATE 5 MG TABLET (FP) PO SCH (09:49)
--- NOTE | 2018-03-16 11:23 | EKG ---
Test Reason : Blood Pressure : / mmHG Vent. Rate : 105 BPM Atrial Rate : 105 BPM P-R Int : 172 ms QRS Dur : 086 ms QT Int : 332 ms P-R-T Axes : 058 006 054 degrees QTc Int : 438 ms SINUS TACHYCARDIA POSSIBLE LEFT ATRIAL ENLARGEMENT POOR R WAVE PROGRESSION ABNORMAL ECG Confirmed by TILA HEREDIA MD ([id number]) on 03/16/2018 11:22:58 AM Referred By: Confirmed By:TILA HEREDIA MD
--- NOTE | 2018-03-16 12:36 | PN ---
Progress Note (short form) - Note Progress Note: RENAL Pt is awake and alert denies complaints Last Vital Signs Temp Pulse Resp BP Pulse Ox 98.3 F 117 H 18 163/108 H 97 03/16/18 09:46 03/16/18 09:46 03/16/18 09:46 03/16/18 09:46 03/16/18 09:48 lungs clear cvs s1s2 rr abd soft ext +edema neuro a+ox3, no tremors, no asterixis CBC, BMP 03/15/18 12:27 03/15/18 12:27 Current Medications Generic Name Dose Route Start Last Admin Trade Name Shilpa PRN Reason Stop Dose Admin Amlodipine Besylate 5 mg 03/16/18 10:00 03/16/18 09:49 Norvasc - PO 5 mg DAILY EDWARD Administration Aspirin 81 mg 03/16/18 10:00 03/16/18 09:49 Ecotrin - PO 81 mg DAILY EDWARD Administration Atorvastatin Calcium 20 mg 03/15/18 22:00 03/15/18 22:00 Lipitor - PO 20 mg HS EDWARD Administration Cyanocobalamin 1,000 mcg 03/16/18 10:00 03/16/18 09:49 Vitamin B12 - PO 1,000 mcg DAILY EDWARD Administration Sodium Chloride 1,000 mls @ 60 mls/hr 03/16/18 03:45 03/16/18 04:11 1/2 Normal Saline IV 60 mls/hr ASDIR EDWARD Administration Insulin Aspart 1 vial 03/15/18 22:00 03/16/18 11:12 Novolog Vial Sliding Scale - SQ 4 unit ACHS EDWARD Administration Protocol Gnssg-6-Hupe Ethyl Esters 1 gm 03/15/18 18:45 03/16/18 09:49 Lovaza - PO 1 gm DAILY EDWARD Administration IMPRESSION CKD?JANAE Has normal size kidney with no hydro previous noncompliance due to lack of insurance hematuria and proteinuria edema PLAN dc fluids given uncontrolled bp and edema continue lisinopril for now repeat urinalysis and if persistent hematuria have urology evaluate repeat bmp in am check hgba1c hemodialysis, peritoneal dialysis and transplantation discussed with pt would have vascular evaluate for future fistula MV
[2018-03-16] MEDS: LISINOPRIL 5 MG TABLET (FP) PO SCH (14:39)
[2018-03-16 15:58] LABS: HEMATOCRIT 39.8 % (35.4-49); HEMOGLOBIN 13.6 GM/dL (11.7-16.9); MCH 28.4 pg (25.7-33.7); MCHC 34.1 g/dl (32.0-35.9); MEAN CELL VOLUME 83.4 fl (80-96); MEAN PLT VOLUME 7.5 fl (7.5-11.1); PLATELET COUNT 236 K/MM3 (134-434); RBC 4.77 M/mm3 (4.00-5.60); RDW 14.1 % (11.9-15.9); WHITE BLOOD COUNT 5.7 K/mm3 (4.0-10.0)
--- NOTE | 2018-03-16 17:21 | PN ---
Progress Note, Physician Chief Complaint: CKD History of Present Illness: Previous notes and events reviewed awake and alert NAD tachycardic with HR 117, EKG ordered stat patient denies chest pain, SOB, dizziness - Current Medication List Current Medications: Active Medications Amlodipine Besylate (Norvasc -) 5 mg PO DAILY [facility] Last Admin: 03/16/18 09:49 Dose: 5 mg Aspirin (Ecotrin -) 81 mg PO DAILY [facility] Last Admin: 03/16/18 09:49 Dose: 81 mg Atorvastatin Calcium (Lipitor -) 20 mg PO HS [facility] Last Admin: 03/15/18 22:00 Dose: 20 mg Cyanocobalamin (Vitamin B12 -) 1,000 mcg PO DAILY [facility] Last Admin: 03/16/18 09:49 Dose: 1,000 mcg Insulin Aspart (Novolog Vial Sliding Scale -) 1 vial SQ [facility]; Protocol Last Admin: 03/16/18 11:12 Dose: 4 unit Lisinopril (Prinivil) 5 mg PO DAILY [facility] Last Admin: 03/16/18 14:39 Dose: 5 mg Xdavi-6-Luzr Ethyl Esters (Lovaza -) 1 gm PO DAILY [facility] Last Admin: 03/16/18 09:49 Dose: 1 gm - Objective Vital Signs: Vital Signs Temperature 98.1 F 03/16/18 14:54 Pulse Rate 106 H 03/16/18 14:54 Respiratory Rate 18 03/16/18 14:54 Blood Pressure 157/93 03/16/18 14:54 O2 Sat by Pulse Oximetry (%) 97 03/16/18 09:48 Constitutional: Yes: Well Nourished, No Distress, Calm Eyes: Yes: Conjunctiva Clear Neck: Yes: Supple Cardiovascular: Yes: Regular Rate and Rhythm Respiratory: Yes: Regular, CTA Bilaterally Gastrointestinal: Yes: Normal Bowel Sounds, Soft Musculoskeletal: Yes: WNL Extremities: Yes: WNL Edema: No Neurological: Yes: Alert, Oriented Psychiatric: Yes: Alert, Oriented Labs: CBC, BMP 03/16/18 14:00 03/15/18 12:27 INR, PTT INR 1.03 (0.83-1.09) 03/15/18 12:27 <May Sexton - Last Filed: 03/16/18 17:15> - Current Medication List Current Medications: Active Medications Amlodipine Besylate (Norvasc -) 10 mg PO DAILY [facility] Last Admin: 03/17/18 17:56 Dose: 10 mg Aspirin (Ecotrin -) 81 mg PO DAILY [facility] Last Admin: 03/17/18 09:08 Dose: 81 mg Atorvastatin Calcium (Lipitor -) 20 mg PO HS [facility] Last Admin: 03/17/18 21:50 Dose: 20 mg Cyanocobalamin (Vitamin B12 -) 1,000 mcg PO DAILY [facility] Last Admin: 03/17/18 09:07 Dose: 1,000 mcg Insulin Aspart (Novolog Vial Sliding Scale -) 1 vial SQ ACHS [facility]; Protocol Insulin Detemir (Levemir Vial) 12 units SQ HS [facility] Insulin Detemir (Levemir Vial) 22 units SQ AM [facility] Qsbtz-6-Cssg Ethyl Esters (Lovaza -) 1 gm PO DAILY [facility] Last Admin: 03/17/18 09:07 Dose: 1 gm - Objective Vital Signs: Vital Signs Temperature 98 F 03/18/18 02:00 Pulse Rate 89 03/18/18 02:00 Respiratory Rate 18 03/18/18 02:00 Blood Pressure 136/79 03/18/18 02:00 O2 Sat by Pulse Oximetry (%) 94 L 03/17/18 21:00 Labs: CBC, BMP 03/16/18 14:00 03/16/18 14:10 INR, PTT INR 1.03 (0.83-1.09) 03/15/18 12:27 <Michelle Ruiz - Last Filed: 03/18/18 05:45> Problem List - Problems (1) Acute kidney injury superimposed on chronic kidney disease Assessment/Plan: -renal on board -pending renal US -BUN/Cr 51/4.6, will monitor Code(s): N17.9 - ACUTE KIDNEY FAILURE, UNSPECIFIED; N18.9 - CHRONIC KIDNEY DISEASE, UNSPECIFIED (2) Elevated serum creatinine Assessment/Plan: -renal on board -will trend Cr level -renal sono show L nephrectomy and grossly negative R kidney Code(s): R79.89 - OTHER SPECIFIED ABNORMAL FINDINGS OF BLOOD CHEMISTRY (3) Troponin I above reference range Assessment/Plan: -initial troponin 0.6, repeat 0.04 -tele monitoring -cardiology consult appreciated Code(s): R74.8 - ABNORMAL LEVELS OF OTHER SERUM ENZYMES (4) Diabetes Assessment/Plan: -endocrinology on board -HgA1c 8.3 -diabetic diet -BGM ACHS, ISS -will start on levemir 15U daily Code(s): E11.9 - TYPE 2 DIABETES MELLITUS WITHOUT COMPLICATIONS Qualifiers: Diabetes mellitus type: type 1 Diabetes mellitus complication status: with skin complications Diabetes mellitus complication detail: with foot ulcer Qualified Code(s): E10.621 - Type 1 diabetes mellitus with foot ulcer (5) HTN (hypertension) Assessment/Plan: -cont amlodipine -started on lisinopril 5mg daily -VS q8h Code(s): I10 - ESSENTIAL (PRIMARY) HYPERTENSION Qualifiers: Hypertension type: essential hypertension Qualified Code(s): I10 - Essential (primary) hypertension (6) Hypercholesterolemia Assessment/Plan: -cont atorvastatin -TG 175-on fish oil Code(s): E78.0 - PURE HYPERCHOLESTEROLEMIA * DO NOT USE * <May Sexton - Last Filed: 03/16/18 17:15> - Problems (1) Acute kidney injury superimposed on chronic kidney disease Code(s): N17.9 - ACUTE KIDNEY FAILURE, UNSPECIFIED; N18.9 - CHRONIC KIDNEY DISEASE, UNSPECIFIED (2) Elevated serum creatinine Code(s): R79.89 - OTHER SPECIFIED ABNORMAL FINDINGS OF BLOOD CHEMISTRY (3) Acute renal failure Code(s): N17.9 - ACUTE KIDNEY FAILURE, UNSPECIFIED (4) Diabetes Code(s): E11.9 - TYPE 2 DIABETES MELLITUS WITHOUT COMPLICATIONS Qualifiers: Diabetes mellitus type: type 1 Diabetes mellitus complication status: with skin complications Diabetes mellitus complication detail: with foot ulcer Qualified Code(s): E10.621 - Type 1 diabetes mellitus with foot ulcer (5) HTN (hypertension) Code(s): I10 - ESSENTIAL (PRIMARY) HYPERTENSION Qualifiers: Hypertension type: essential hypertension Qualified Code(s): I10 - Essential (primary) hypertension (6) Hypercholesterolemia Code(s): E78.0 - PURE HYPERCHOLESTEROLEMIA * DO NOT USE * (7) Osteomyelitis of right foot Code(s): M86.9 - OSTEOMYELITIS, UNSPECIFIED (8) Swelling of right lower extremity Code(s): M79.89 - OTHER SPECIFIED SOFT TISSUE DISORDERS (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
[2018-03-16 18:34] LABS: ALBUMIN 3.2 g/dl (3.4-5.0); ALK PHOS 142 U/L (45-117); ANION GAP 10 MMOL/L (8-16); BILIRUBIN,TOTAL 0.3 mg/dL (0.2-1); BLOOD UREA NITROGEN 52 mg/dL (7-18); CALCIUM 8.4 mg/dL (8.5-10.1); CHLORIDE 107 mmol/L (98-107); CO2 20 mmol/L (21-32); CREATININE 4.7 mg/dL (0.55-1.3); POTASSIUM 4.6 mmol/L (3.5-5.1); SGOT/AST 23 U/L (15-37); SGPT/ALT 24 U/L (13-61); SODIUM 137 mmol/L (136-145); TOT PROT 6.5 g/dl (6.4-8.2)
[2018-03-16 18:35] LABS: GLUCOSE,RANDOM 319 mg/dL (74-106)
[2018-03-16] MEDS: ATORVASTATIN CA 20 MG TABLET (FP) PO SCH (21:06)
[2018-03-17] MEDS: INSULIN SLIDING SCALE (NOVOLOG) 1 VIAL SQ SCH ×4 (06:19→21:50)
[2018-03-17] MEDS: OMEGA-3 ACID ETHYL ESTERS (FATTY-ACIDS) 1 GM CAPSULE (FP) PO SCH (09:07)
[2018-03-17] MEDS: CYANOCOBALAMIN 1,000 MCG TABLET (FP) PO SCH (09:07)
[2018-03-17] MEDS: amLODIPine BESYLATE 5 MG TABLET (FP) PO SCH (09:07)
[2018-03-17] MEDS: LISINOPRIL 5 MG TABLET (FP) PO SCH (09:07)
[2018-03-17] MEDS: ASPIRIN COATED 81 MG TABLET.EC PO SCH (09:08)
--- NOTE | 2018-03-17 10:57 | EKG ---
Test Reason : Blood Pressure : / mmHG Vent. Rate : 101 BPM Atrial Rate : 101 BPM P-R Int : 172 ms QRS Dur : 088 ms QT Int : 340 ms P-R-T Axes : 040 001 030 degrees QTc Int : 440 ms SINUS TACHYCARDIA POSSIBLE LEFT ATRIAL ENLARGEMENT ANTERIOR INFARCT (CITED ON OR BEFORE 16-MAR-2018) ABNORMAL ECG WHEN COMPARED WITH ECG OF 15-MAR-2018 12:27, NO SIGNIFICANT CHANGE WAS FOUND Confirmed by BRENDA WHITLOCK, EMPERATRIZ ([id number]) on 03/17/2018 10:57:36 AM Referred By: Karina BECERRIL Confirmed By:EMPERATRIZ GUTIERREZ MD
--- NOTE | 2018-03-17 12:02 | CONSULT ---
Consult Consult Specialty:: Podiatry Referred by:: Magaly Reason for Consultation:: Deformed right Ankle. Chronic wound left big toe. - History of Present Illness Chief Complaint: Chronic wound left big toe. Right ankle deviated possible fracture. History of Present Illness: Slipped on [place] [employer] 6 months plus ago. Never got xray because he owed hospital money. Wound left big toe on and off last 3 years with previous history of om that was tx with abx and hbo 3 years ago. - Past Medical History Cardio/Vascular: Yes: HTN, Hyperlipdemia Renal/: Yes: Renal Inusuff, Other (wilms tumor) Musculoskeletal: Yes: Other (poorly healed right ankle fracture, +grade 1-2 wound plantar left hallux, +hallux limitus left) Endocrine: Yes: Diabetes Mellitus - Past Surgical History Past Surgical History: Yes: Appendectomy, Nephrectomy - Alcohol/Substance Use Hx Alcohol Use: No - Smoking History Smoking history: Never smoked Have you smoked in the past 12 months: No Aproximately how many cigarettes per day: 0 - Social History ADL: Independent Home Medications - Allergies Allergies/Adverse Reactions: Allergies Allergy/AdvReac Type Severity Reaction Status Date / Time No Known Allergies Allergy Verified 03/15/18 11:45 - Home Medications Home Medications: Ambulatory Orders Aspirin [Ecotrin] 81 mg PO DAILY 09/03/15 Amlodipine Besylate 5 mg PO DAILY 10/06/15 Atorvastatin Ca [Lipitor] 20 mg PO HS 03/15/18 Cyanocobalamin [Vitamin B12 -] 1,000 mcg PO DAILY 03/15/18 [place]-3 Fatty Acids/Fish Oil [Fish Oil 1,000 mg Capsule] 1 each PO DAILY Physical Exam Vital Signs: Vital Signs Temperature 97.8 F 03/17/18 09:00 Pulse Rate 76 03/17/18 09:00 Respiratory Rate 18 03/17/18 09:00 Blood Pressure 150/100 03/17/18 09:00 O2 Sat by Pulse Oximetry (%) 97 03/17/18 09:00 Labs: CBC, BMP 03/16/18 14:00 03/16/18 14:10 Assessment/Plan dislocated fracture right ankle chronic wound left big toe Consult Narciso/Candelaria for right ankle. xray reviewed. Awaiting MRI for left big toe. Santyl to left big toe wound.
--- NOTE | 2018-03-17 15:34 | PN ---
Progress Note, Physician Chief Complaint: AWAKE ALERT NAD DENIES CHEST PAIN OR SOB ON TELEMETRY EVENTS AND NOTES REVIEWED - Current Medication List Current Medications: Active Medications Amlodipine Besylate (Norvasc -) 5 mg PO DAILY [facility] Last Admin: 03/17/18 09:07 Dose: 5 mg Aspirin (Ecotrin -) 81 mg PO DAILY [facility] Last Admin: 03/17/18 09:08 Dose: 81 mg Atorvastatin Calcium (Lipitor -) 20 mg PO HS [facility] Last Admin: 03/16/18 21:06 Dose: 20 mg Cyanocobalamin (Vitamin B12 -) 1,000 mcg PO DAILY [facility] Last Admin: 03/17/18 09:07 Dose: 1,000 mcg Insulin Aspart (Novolog Vial Sliding Scale -) 1 vial SQ ACHS [facility]; Protocol Last Admin: 03/17/18 12:22 Dose: 4 unit Lisinopril (Prinivil) 5 mg PO DAILY [facility] Last Admin: 03/17/18 09:07 Dose: 5 mg Jompo-2-Vogv Ethyl Esters (Lovaza -) 1 gm PO DAILY [facility] Last Admin: 03/17/18 09:07 Dose: 1 gm - Objective Vital Signs: Vital Signs Temperature 98.2 F 03/17/18 14:23 Pulse Rate 79 03/17/18 14:23 Respiratory Rate 18 03/17/18 14:23 Blood Pressure 173/81 H 03/17/18 14:23 O2 Sat by Pulse Oximetry (%) 97 03/17/18 09:00 Constitutional: Yes: No Distress Eyes: Yes: WNL HENT: Yes: WNL Neck: Yes: WNL Cardiovascular: Yes: WNL Respiratory: Yes: WNL Gastrointestinal: Yes: WNL Genitourinary: Yes: WNL Musculoskeletal: Yes: WNL Extremities: Yes: Deformity Edema: No Integumentary: Yes: Other Wound/Incision: Yes: Dressing Dry and Intact Neurological: Yes: Loss of Sensation, Numbness, Paresthesia, Pre-Existing Deficit ...Motor Strength: LLE, RLE Psychiatric: Yes: WNL Labs: CBC, BMP 03/16/18 14:00 03/16/18 14:10 INR, PTT INR 1.03 (0.83-1.09) 03/15/18 12:27 Problem List - Problems (1) Acute kidney injury superimposed on chronic kidney disease Code(s): N17.9 - ACUTE KIDNEY FAILURE, UNSPECIFIED; N18.9 - CHRONIC KIDNEY DISEASE, UNSPECIFIED (2) Elevated serum creatinine Code(s): R79.89 - OTHER SPECIFIED ABNORMAL FINDINGS OF BLOOD CHEMISTRY (3) Acute renal failure Code(s): N17.9 - ACUTE KIDNEY FAILURE, UNSPECIFIED (4) Diabetes Code(s): E11.9 - TYPE 2 DIABETES MELLITUS WITHOUT COMPLICATIONS Qualifiers: Diabetes mellitus type: type 1 Diabetes mellitus complication status: with skin complications Diabetes mellitus complication detail: with foot ulcer Qualified Code(s): E10.621 - Type 1 diabetes mellitus with foot ulcer (5) HTN (hypertension) Code(s): I10 - ESSENTIAL (PRIMARY) HYPERTENSION Qualifiers: Hypertension type: essential hypertension Qualified Code(s): I10 - Essential (primary) hypertension (6) Hypercholesterolemia Code(s): E78.0 - PURE HYPERCHOLESTEROLEMIA * DO NOT USE * (7) Osteomyelitis of right foot Code(s): M86.9 - OSTEOMYELITIS, UNSPECIFIED (8) Swelling of right lower extremity Code(s): M79.89 - OTHER SPECIFIED SOFT TISSUE DISORDERS (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
--- NOTE | 2018-03-17 16:36 | PN ---
Progress Note, Physician History of Present Illness: Pt seen and examined at bedside. He is awake and alert. He denies shortness of breath. - Current Medication List Current Medications: Active Medications Amlodipine Besylate (Norvasc -) 5 mg PO DAILY [facility] Last Admin: 03/17/18 09:07 Dose: 5 mg Aspirin (Ecotrin -) 81 mg PO DAILY [facility] Last Admin: 03/17/18 09:08 Dose: 81 mg Atorvastatin Calcium (Lipitor -) 20 mg PO HS [facility] Last Admin: 03/16/18 21:06 Dose: 20 mg Cyanocobalamin (Vitamin B12 -) 1,000 mcg PO DAILY [facility] Last Admin: 03/17/18 09:07 Dose: 1,000 mcg Insulin Aspart (Novolog Vial Sliding Scale -) 1 vial SQ [facility]; Protocol Last Admin: 03/17/18 12:22 Dose: 4 unit Lisinopril (Prinivil) 5 mg PO DAILY [facility] Last Admin: 03/17/18 09:07 Dose: 5 mg Lhkft-2-Stap Ethyl Esters (Lovaza -) 1 gm PO DAILY [facility] Last Admin: 03/17/18 09:07 Dose: 1 gm - Objective Vital Signs: Vital Signs Temperature 98.2 F 03/17/18 14:23 Pulse Rate 79 03/17/18 14:23 Respiratory Rate 18 03/17/18 14:23 Blood Pressure 173/81 H 03/17/18 14:23 O2 Sat by Pulse Oximetry (%) 97 03/17/18 09:00 Constitutional: Yes: Calm Eyes: Yes: Conjunctiva Clear HENT: Yes: Atraumatic Neck: Yes: Supple Cardiovascular: Yes: S1, S2 Respiratory: Yes: CTA Bilaterally Gastrointestinal: Yes: Soft, Abdomen, Obese Musculoskeletal: Yes: WNL Edema: LLE: Trace, RLE: Trace Neurological: Yes: Oriented Psychiatric: Yes: Oriented Labs: CBC, BMP 03/16/18 14:00 03/16/18 14:10 INR, PTT INR 1.03 (0.83-1.09) 03/15/18 12:27 Assessment/Plan Current Medications Generic Name Dose Route Start Last Admin Trade Name Freq PRN Reason Stop Dose Admin Amlodipine Besylate 5 mg 03/16/18 10:00 03/17/18 09:07 Norvasc - PO 5 mg DAILY [facility] Administration Aspirin 81 mg 03/16/18 10:00 03/17/18 09:08 Ecotrin - PO 81 mg DAILY [facility] Administration Atorvastatin Calcium 20 mg 03/15/18 22:00 03/16/18 21:06 Lipitor - PO 20 mg HS [facility] Administration Cyanocobalamin 1,000 mcg 03/16/18 10:00 03/17/18 09:07 Vitamin B12 - PO 1,000 mcg DAILY [facility] Administration Insulin Aspart 1 vial 03/15/18 22:00 03/17/18 12:22 Novolog Vial Sliding Scale - SQ 4 unit ACHS [facility] Administration Protocol Lisinopril 5 mg 03/16/18 12:30 03/17/18 09:07 Prinivil PO 5 mg DAILY [facility] Administration Mrwej-9-Ftut Ethyl Esters 1 gm 03/15/18 18:45 03/17/18 09:07 Lovaza - PO 1 gm DAILY [facility] Administration Impression 1. CKD 2. JANAE 3. DM 4. chest pain 5. hyperlipidemia 6. HTN 7. hx of Wilms tumor, s/p left nephrectomy Plan - increase amlodipine to 10 mg - hold brando for now - repeat labs in am - discussed preparation for HD - will send workup Dr Bess
[2018-03-17] MEDS ORDERED: amLODIPine BESYLATE 5 MG TABLET (FP) PO SCH (16:37)
[2018-03-17] MEDS: amLODIPine BESYLATE 10 MG TABLET (FP) PO SCH (17:56)
[2018-03-17] MEDS ORDERED: INSULIN (NOVOLOG) ASPART 100 UNITS/ML 10ML VIAL ONE (21:04)
[2018-03-17] MEDS: ATORVASTATIN CA 20 MG TABLET (FP) PO SCH (21:50)
--- NOTE | 2018-03-17 23:10 | PN ---
Progress Note, Physician Chief Complaint: high sugar not eating much History of Present Illness: dm 2,nephropathy,ckd,htn, sp nephrectomy,ho wilms tumor - Current Medication List Current Medications: Active Medications Amlodipine Besylate (Norvasc -) 10 mg PO DAILY [facility] Last Admin: 03/17/18 17:56 Dose: 10 mg Aspirin (Ecotrin -) 81 mg PO DAILY [facility] Last Admin: 03/17/18 09:08 Dose: 81 mg Atorvastatin Calcium (Lipitor -) 20 mg PO HS [facility] Last Admin: 03/17/18 21:50 Dose: 20 mg Cyanocobalamin (Vitamin B12 -) 1,000 mcg PO DAILY [facility] Last Admin: 03/17/18 09:07 Dose: 1,000 mcg Insulin Aspart (Novolog Vial Sliding Scale -) 1 vial SQ [facility]; Protocol Last Admin: 03/17/18 21:50 Dose: 2 unit Wtfbm-6-Ypsn Ethyl Esters (Lovaza -) 1 gm PO DAILY [facility] Last Admin: 03/17/18 09:07 Dose: 1 gm - Objective Vital Signs: Vital Signs Temperature 98.1 F 03/17/18 22:28 Pulse Rate 97 H 03/17/18 22:28 Respiratory Rate 18 03/17/18 22:28 Blood Pressure 130/76 03/17/18 22:28 O2 Sat by Pulse Oximetry (%) 94 L 03/17/18 21:00 Constitutional: Yes: Anxious Eyes: Yes: EOM Intact HENT: Yes: Normocephalic Neck: Yes: Trachea Midline Cardiovascular: Yes: Regular Rate and Rhythm Respiratory: Yes: CTA Bilaterally Gastrointestinal: Yes: Normal Bowel Sounds ...Rectal Exam: Yes: Deferred Genitourinary: Yes: WNL Breast(s): Yes: WNL Extremities: Yes: WNL Edema: Yes Edema: LLE: Trace, RLE: Trace Neurological: Yes: Alert, Oriented Labs: CBC, BMP 03/16/18 14:00 03/16/18 14:10 INR, PTT INR 1.03 (0.83-1.09) 03/15/18 12:27 Problem List - Problems (1) Acute kidney injury superimposed on chronic kidney disease Code(s): N17.9 - ACUTE KIDNEY FAILURE, UNSPECIFIED; N18.9 - CHRONIC KIDNEY DISEASE, UNSPECIFIED (2) Elevated serum creatinine Code(s): R79.89 - OTHER SPECIFIED ABNORMAL FINDINGS OF BLOOD CHEMISTRY (3) Troponin I above reference range Code(s): R74.8 - ABNORMAL LEVELS OF OTHER SERUM ENZYMES (4) Acute renal failure Code(s): N17.9 - ACUTE KIDNEY FAILURE, UNSPECIFIED (5) Chest pain Code(s): R07.9 - CHEST PAIN, UNSPECIFIED Qualifiers: Chest pain type: precordial chest pain (6) Diabetes Code(s): E11.9 - TYPE 2 DIABETES MELLITUS WITHOUT COMPLICATIONS Qualifiers: Diabetes mellitus type: type 1 Diabetes mellitus complication status: with skin complications Diabetes mellitus complication detail: with foot ulcer Qualified Code(s): E10.621 - Type 1 diabetes mellitus with foot ulcer (7) HTN (hypertension) Code(s): I10 - ESSENTIAL (PRIMARY) HYPERTENSION Qualifiers: Hypertension type: essential hypertension Qualified Code(s): I10 - Essential (primary) hypertension (8) Hypercholesterolemia Code(s): E78.0 - PURE HYPERCHOLESTEROLEMIA * DO NOT USE * Assessment/Plan Current Active Problems Acute kidney injury superimposed on chronic kidney disease (Acute) Elevated serum creatinine (Acute) Troponin I above reference range (Acute) dm2 neprhopathy Laboratory Results - last 24 hr 03/17/18 03/17/18 03/17/18 05:24 11:32 16:36 POC Glucometer 232 291 341 03/17/18 21:47 POC Glucometer 235 plan \bgm qid novolog insulin doses levemir bid dosing novolog scale titration
[2018-03-18] MEDS: INSULIN (LEVEMIR) 100 UNITS/ML UNITS SQ SCH ×2 (06:40→21:10)
[2018-03-18] MEDS: INSULIN SLIDING SCALE (NOVOLOG) 1 VIAL SQ SCH ×4 (06:41→21:12)
[2018-03-18] MEDS: OMEGA-3 ACID ETHYL ESTERS (FATTY-ACIDS) 1 GM CAPSULE (FP) PO SCH ×2 (07:23→09:47)
[2018-03-18 07:48] LABS: ANION GAP 7 MMOL/L (8-16); BLOOD UREA NITROGEN 55 mg/dL (7-18); CALCIUM 8.7 mg/dL (8.5-10.1); CHLORIDE 107 mmol/L (98-107); CO2 23 mmol/L (21-32); CREATININE 4.7 mg/dL (0.55-1.3); GLUCOSE,RANDOM 259 mg/dL (74-106); POTASSIUM 4.9 mmol/L (3.5-5.1); SODIUM 137 mmol/L (136-145)
--- NOTE | 2018-03-18 08:38 | PN ---
Progress Note, Physician Chief Complaint: AWAKE ALERT DENIES ANY DISCOMFORT AWAITING MRI RIGHT FOOT - Current Medication List Current Medications: Active Medications Amlodipine Besylate (Norvasc -) 10 mg PO DAILY [facility] Last Admin: 03/17/18 17:56 Dose: 10 mg Aspirin (Ecotrin -) 81 mg PO DAILY [facility] Last Admin: 03/17/18 09:08 Dose: 81 mg Atorvastatin Calcium (Lipitor -) 20 mg PO HS [facility] Last Admin: 03/17/18 21:50 Dose: 20 mg Cyanocobalamin (Vitamin B12 -) 1,000 mcg PO DAILY [facility] Last Admin: 03/17/18 09:07 Dose: 1,000 mcg Insulin Aspart (Novolog Vial Sliding Scale -) 1 vial SQ [facility]; Protocol Last Admin: 03/18/18 06:41 Dose: 7 units Insulin Detemir (Levemir Vial) 12 units SQ HS [facility] Insulin Detemir (Levemir Vial) 22 units SQ AM [facility] Last Admin: 03/18/18 06:40 Dose: 22 units Cmjwz-7-Nptn Ethyl Esters (Lovaza -) 1 gm PO DAILY [facility] Last Admin: 03/18/18 07:23 Dose: Not Given - Objective Vital Signs: Vital Signs Temperature 98 F 03/18/18 02:00 Pulse Rate 89 03/18/18 02:00 Respiratory Rate 18 03/18/18 02:00 Blood Pressure 136/79 03/18/18 02:00 O2 Sat by Pulse Oximetry (%) 94 L 03/17/18 21:00 Constitutional: Yes: No Distress Eyes: Yes: WNL HENT: Yes: WNL Neck: Yes: WNL Cardiovascular: Yes: WNL Respiratory: Yes: WNL Gastrointestinal: Yes: WNL Genitourinary: Yes: WNL Musculoskeletal: Yes: WNL Extremities: Yes: WNL Integumentary: Yes: Pressure Ulcer Wound/Incision: Yes: Dressing Dry and Intact (RIGHT FOOT) Neurological: Yes: Pre-Existing Deficit ...Motor Strength: RLE Psychiatric: Yes: WNL Labs: CBC, BMP 03/16/18 14:00 03/18/18 05:30 INR, PTT INR 1.03 (0.83-1.09) 03/15/18 12:27 Problem List - Problems (1) Acute kidney injury superimposed on chronic kidney disease Code(s): N17.9 - ACUTE KIDNEY FAILURE, UNSPECIFIED; N18.9 - CHRONIC KIDNEY DISEASE, UNSPECIFIED (2) Elevated serum creatinine Code(s): R79.89 - OTHER SPECIFIED ABNORMAL FINDINGS OF BLOOD CHEMISTRY (3) Acute renal failure Code(s): N17.9 - ACUTE KIDNEY FAILURE, UNSPECIFIED (4) Diabetes Code(s): E11.9 - TYPE 2 DIABETES MELLITUS WITHOUT COMPLICATIONS Qualifiers: Diabetes mellitus type: type 1 Diabetes mellitus complication status: with skin complications Diabetes mellitus complication detail: with foot ulcer Qualified Code(s): E10.621 - Type 1 diabetes mellitus with foot ulcer (5) HTN (hypertension) Code(s): I10 - ESSENTIAL (PRIMARY) HYPERTENSION Qualifiers: Hypertension type: essential hypertension Qualified Code(s): I10 - Essential (primary) hypertension (6) Hypercholesterolemia Code(s): E78.0 - PURE HYPERCHOLESTEROLEMIA * DO NOT USE * (7) Osteomyelitis of right foot Code(s): M86.9 - OSTEOMYELITIS, UNSPECIFIED (8) Swelling of right lower extremity Code(s): M79.89 - OTHER SPECIFIED SOFT TISSUE DISORDERS (9) Type 1 diabetes mellitus with diabetic nephropathy Code(s): E10.21 - TYPE 1 DIABETES MELLITUS WITH DIABETIC NEPHROPATHY Assessment/Plan MRI FOOT PENDING R/O OSTEOMYELITIS ENDOCRINE/PODIATRY/RENAL EVAL DVT PROPHYLAXIS RENAL DIET BGM/SSI DIET AND LIFESTYLE CHANGES D/W PATIENT DIETARY CONSULT TO EVALUATE NUTRITIONAL EDUCATION
[2018-03-18] MEDS: ASPIRIN COATED 81 MG TABLET.EC PO SCH (09:47)
[2018-03-18] MEDS: CYANOCOBALAMIN 1,000 MCG TABLET (FP) PO SCH (09:47)
[2018-03-18] MEDS: amLODIPine BESYLATE 10 MG TABLET (FP) PO SCH (09:47)
--- NOTE | 2018-03-18 12:05 | PN ---
Progress Note, Physician History of Present Illness: Pt seen and examined at bedside. He is awake and alert. He denies shortness of breath. He denies loss of appetite. - Current Medication List Current Medications: Active Medications Amlodipine Besylate (Norvasc -) 10 mg PO DAILY [facility] Last Admin: 03/18/18 09:47 Dose: 10 mg Aspirin (Ecotrin -) 81 mg PO DAILY [facility] Last Admin: 03/18/18 09:47 Dose: 81 mg Atorvastatin Calcium (Lipitor -) 20 mg PO HS [facility] Last Admin: 03/17/18 21:50 Dose: 20 mg Cyanocobalamin (Vitamin B12 -) 1,000 mcg PO DAILY [facility] Last Admin: 03/18/18 09:47 Dose: 1,000 mcg Insulin Aspart (Novolog Vial Sliding Scale -) 1 vial SQ [facility]; Protocol Last Admin: 03/18/18 06:41 Dose: 7 units Insulin Detemir (Levemir Vial) 12 units SQ HS [facility] Insulin Detemir (Levemir Vial) 22 units SQ AM [facility] Last Admin: 03/18/18 06:40 Dose: 22 units Allcr-2-Nche Ethyl Esters (Lovaza -) 1 gm PO DAILY [facility] Last Admin: 03/18/18 09:47 Dose: 1 gm - Objective Vital Signs: Vital Signs Temperature 98.3 F 03/18/18 09:48 Pulse Rate 102 H 03/18/18 09:48 Respiratory Rate 20 03/18/18 09:48 Blood Pressure 159/84 03/18/18 09:48 O2 Sat by Pulse Oximetry (%) 94 L 03/17/18 21:00 Constitutional: Yes: Calm Eyes: Yes: Conjunctiva Clear HENT: Yes: Atraumatic Cardiovascular: Yes: S1, S2 Respiratory: Yes: CTA Bilaterally Gastrointestinal: Yes: Soft Edema: Yes Edema: LLE: Trace, RLE: Trace Neurological: Yes: Oriented Psychiatric: Yes: Oriented Labs: CBC, BMP 03/16/18 14:00 03/18/18 05:30 INR, PTT INR 1.03 (0.83-1.09) 03/15/18 12:27 Assessment/Plan Current Medications Generic Name Dose Route Start Last Admin Trade Name Freq PRN Reason Stop Dose Admin Amlodipine Besylate 10 mg 03/17/18 16:45 03/18/18 09:47 Norvasc - PO 10 mg DAILY [facility] Administration Aspirin 81 mg 03/16/18 10:00 03/18/18 09:47 Ecotrin - PO 81 mg DAILY [facility] Administration Atorvastatin Calcium 20 mg 03/15/18 22:00 03/17/18 21:50 Lipitor - PO 20 mg HS [facility] Administration Cyanocobalamin 1,000 mcg 03/16/18 10:00 03/18/18 09:47 Vitamin B12 - PO 1,000 mcg DAILY [facility] Administration Insulin Aspart 1 vial 03/17/18 23:11 03/18/18 06:41 Novolog Vial Sliding Scale - SQ 7 units ACHS [facility] Administration Protocol Insulin Detemir 12 units 03/18/18 22:00 Levemir Vial SQ HS [facility] Insulin Detemir 22 units 03/18/18 07:00 03/18/18 06:40 Levemir Vial SQ 22 units AM [facility] Administration Mwtkc-2-Wsex Ethyl Esters 1 gm 03/15/18 18:45 03/18/18 09:47 Lovaza - PO 1 gm DAILY [facility] Administration Laboratory Tests 03/18/18 05:30 CHAITANYA Screen Pending c-ANCA Pending Proteinase 3 (PR3) Pending p-ANCA Pending Atypical p-ANCA Pending Myeloperoxidase Ab Pending Double Strand DNA Ab Pending Hepatitis A Ab Total Pending Hep Bs Antigen Pending Hep Bs Antibody Pending Hep B Core Total Ab Pending HCV Quantitation Pending Impression 1. CKD 2. JANAE 3. DM 4. chest pain 5. hyperlipidemia 6. HTN 7. hx of Wilms tumor, s/p left nephrectomy Plan - monitor bp on 10 mg of amlodipine - vascular eval for vein mapping - no indication for HD at this point but should start to prepare - will monitor renal function - avoid nsaids - avoid nephrotoxins Dr Bess
--- NOTE | 2018-03-18 13:48 | PN ---
Progress Note (short form) - Note Progress Note: patient had xray and was awaiting MRI. +malunion right ankle fracture, om hallux left?, -drainage left big toe, + deformed right ankle, r/o om left hallux malunion right ankle Awaiting MRI left. Awaiting consult from ortho right ankle. will follow.
--- NOTE | 2018-03-18 18:08 | CONSULT ---
Consult - text type - Consultation Consultation Note: ORTHOPEDIC SURGERY CONSULTATION NOTE Department of Orthopedic Surgery HISTORY OF PRESENT ILLNESS Wilian Manrique is a 62 year old male with a PMH of IDDM, HTN, HLD, Wilms tumor s/p nephrectomy. Patient was sent to hospital for an elevated creatinine level and was admitted. The orthopedic service was consulted for a right ankle malunion. The patient states he fell in August 2017 and injured his right ankle. He did not come to the hospital or seek care because he owed the hospital money and "could not afford it." He began ambulating as pain allowed after the injury. The pain progressively improved and he is now able to bear full weigh and ambulate. He only complains of mild right heel pain that occurs after he walks for a while. He has a history of bilateral foot drop for "many years" and was given braces for his ankle. However, he no longer uses the braces because one of them caused an ulcer on his left great toe. Denies any other injuries. Denies numbness, tingling or other constitutional complaints. He uses no assistive devices at baseline. Active Problems Problem Status Category Onset Acute kidney injury superimposed on chronic kidney disease Acute Medical Elevated serum creatinine Acute Medical Troponin I above reference range Acute Medical Past Medical History Cardio/Vascular HTN,Hyperlipdemia Renal/ Renal Inusuff,Other Endocrine Diabetes Mellitus Past Surgical History Past Surgical History Appendectomy,Nephrectomy Social History Smoking history Never smoked Aproximately how many 0 cigarettes per day Hx Alcohol Use No ADL Independent Allergies Allergy/AdvReac Type Severity Reaction Status Date / Time No Known Allergies Allergy Verified 03/15/18 11:45 Active Medications Generic Name Dose Route Start Last Admin Trade Name Shilpa PRN Reason Stop Dose Admin Amlodipine Besylate 10 mg 03/17/18 16:45 03/18/18 09:47 Norvasc - PO 10 mg DAILY [facility] Administration Aspirin 81 mg 03/16/18 10:00 03/18/18 09:47 Ecotrin - PO 81 mg DAILY [facility] Administration Atorvastatin Calcium 20 mg 03/15/18 22:00 03/17/18 21:50 Lipitor - PO 20 mg HS [facility] Administration Cyanocobalamin 1,000 mcg 03/16/18 10:00 03/18/18 09:47 Vitamin B12 - PO 1,000 mcg DAILY [facility] Administration Insulin Aspart 1 vial 03/17/18 23:11 03/18/18 18:07 Novolog Vial Sliding Scale - SQ 7 units ACHS [facility] Administration Protocol Insulin Detemir 12 units 03/18/18 22:00 Levemir Vial SQ HS [facility] Insulin Detemir 22 units 03/18/18 07:00 03/18/18 06:40 Levemir Vial SQ 22 units AM [facility] Administration Ukzps-1-Jxgr Ethyl Esters 1 gm 03/15/18 18:45 03/18/18 09:47 Lovaza - PO 1 gm DAILY [facility] Administration Vital Signs (last) Temp Pulse Resp BP Pulse Ox 98.4 F 97 H 20 156/74 98 03/18/18 13:43 03/18/18 13:43 03/18/18 13:43 03/18/18 13:43 03/18/18 09:00 Intake and Output 03/16/18 03/17/18 03/18/18 23:59 23:59 23:59 Intake Total 1989 870 100 Balance 1989 870 100 Intake: IV 540 20 Saline lock 140 20 ivf 400 Oral 1450 850 100 Other: Voiding Method Toilet Toilet Toilet # Unmeasured Voids Void 2 1 2 Bowel Movement No No # Bowel Movements 1 Laboratory 03/16/18 14:00 03/18/18 05:30 PT with INR 12.10 SEC (9.7-13.0) 03/15/18 12:27 FAMILY HISTORY Unknown REVIEW OF SYMPTOMS A twelve-point review of systems was performed and was negative except as noted in HPI. PHYSICAL EXAM Constitutional: Alert and oriented to person, place, and time. Appears well- developed and well-nourished. No acute distress, appropriate mood and affect. Right Lower Extremity: Skin warm, dry, and intact; no lesions, rashes or ulcers noted. Deformity of right ankle and midfoot with swelling. No masses or effusions noted. No tenderness to palpation. Tight heel cords. No calf tenderness. No significant calf/ankle edema. Unable to DF ankle. Passive ROM, free from pain. Decreased sensation to light touch. Cap refill brisk. Left Lower Extremity: Ulcer planar aspect of great toe. No drainage. No tenderness to palpation. Tight heel cord. No calf tenderness. No significant calf/ankle edema. Unable to DF. Passive ROM, free from pain. Decreased sensation to light touch. Cap refill brisk. Right Upper Extremity: No tenderness to palpation. Passive and active ROM, free from pain. Left Upper Extremity: No tenderness to palpation. Passive and active ROM, free from pain. IMAGING Radiographs of the right ankle reveals a healed fracture of the distal fibula and an old avulsion fracture of the medial malleolus. The fracture has healed in a malunion, but overall the ankle mortise is intact. 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 There is heel spur. ASSESSMENT AND PLAN Wilian Manrique is a 62 year old male with (1) right ankle fracture malunion, (2) right foot charcot arthropathy, and (3) left great toe diabetic ulcer. - No acute orthopedic intervention at this time. - AFO bilateral lower extremities. Needs routine skin checks - Dr. Alfonso is managing left great toe ulcer; consult appreciated - Elevate right ankle to decrease swelling - Pain control - DVT prophylaxis - Elevate HOB, encourage oral intake - Appreciate medical management (Nutrition optimization, decubitus precautions heel/sacrum) - PT/OT; Increase range of motion; WBAT with assistance All questions were answered. Thank you for involving our team in the care of this patient. Please have patient follow up in our office in 1-2 weeks [phone].
[2018-03-18] MEDS: ATORVASTATIN CA 20 MG TABLET (FP) PO SCH (21:12)
[2018-03-19 06:17] LABS: HBSAG SCREEN Negative (Negative); HEP B CORE AB, TOT Negative (Negative)
[2018-03-19] MEDS: INSULIN (LEVEMIR) 100 UNITS/ML UNITS SQ SCH ×2 (07:06→21:17)
[2018-03-19] MEDS: INSULIN SLIDING SCALE (NOVOLOG) 1 VIAL SQ SCH ×5 (07:08→21:18)
[2018-03-19] MEDS: OMEGA-3 ACID ETHYL ESTERS (FATTY-ACIDS) 1 GM CAPSULE (FP) PO SCH (10:16)
[2018-03-19] MEDS: amLODIPine BESYLATE 10 MG TABLET (FP) PO SCH (10:16)
[2018-03-19] MEDS: CYANOCOBALAMIN 1,000 MCG TABLET (FP) PO SCH (10:16)
[2018-03-19] MEDS: ASPIRIN COATED 81 MG TABLET.EC PO SCH (10:16)
--- NOTE | 2018-03-19 10:31 | PN ---
Progress Note, Physician - Current Medication List Current Medications: Active Medications Amlodipine Besylate (Norvasc -) 10 mg PO DAILY [facility] Last Admin: 03/19/18 10:16 Dose: 10 mg Aspirin (Ecotrin -) 81 mg PO DAILY [facility] Last Admin: 03/19/18 10:16 Dose: 81 mg Atorvastatin Calcium (Lipitor -) 20 mg PO HS [facility] Last Admin: 03/18/18 21:12 Dose: 20 mg Cyanocobalamin (Vitamin B12 -) 1,000 mcg PO DAILY [facility] Last Admin: 03/19/18 10:16 Dose: 1,000 mcg Insulin Aspart (Novolog Vial Sliding Scale -) 1 vial SQ [facility]; Protocol Last Admin: 03/19/18 07:08 Dose: 5 units Insulin Detemir (Levemir Vial) 12 units SQ HS [facility] Last Admin: 03/18/18 21:10 Dose: 12 units Insulin Detemir (Levemir Vial) 22 units SQ AM [facility] Last Admin: 03/19/18 07:06 Dose: 22 units Mblfm-7-Hcjg Ethyl Esters (Lovaza -) 1 gm PO DAILY [facility] Last Admin: 03/19/18 10:16 Dose: 1 gm - Objective Vital Signs: Vital Signs Temperature 98.1 F 03/19/18 06:00 Pulse Rate 90 03/19/18 06:00 Respiratory Rate 18 03/19/18 06:00 Blood Pressure 152/88 03/19/18 06:00 O2 Sat by Pulse Oximetry (%) 96 03/18/18 21:00 Cardiovascular: Yes: Regular Rate and Rhythm Respiratory: Yes: Regular, CTA Bilaterally Gastrointestinal: Yes: Normal Bowel Sounds, Soft Labs: CBC, BMP 03/16/18 14:00 03/18/18 05:30 INR, PTT INR 1.03 (0.83-1.09) 03/15/18 12:27 Problem List - Problems (1) Osteomyelitis of right foot Assessment/Plan: abx per Id await mri results Code(s): M86.9 - OSTEOMYELITIS, UNSPECIFIED (2) Diabetes Assessment/Plan: -endocrinology consult noted -HgA1c 8.3 -diabetic diet -BGM ACHS, ISS Code(s): E11.9 - TYPE 2 DIABETES MELLITUS WITHOUT COMPLICATIONS Qualifiers: Diabetes mellitus type: type 1 Diabetes mellitus complication status: with skin complications Diabetes mellitus complication detail: with foot ulcer Qualified Code(s): E10.621 - Type 1 diabetes mellitus with foot ulcer (3) Acute kidney injury superimposed on chronic kidney disease Assessment/Plan: -renal on board -renal US noted -will trend Cr level Code(s): N17.9 - ACUTE KIDNEY FAILURE, UNSPECIFIED; N18.9 - CHRONIC KIDNEY DISEASE, UNSPECIFIED (4) Troponin I above reference range Assessment/Plan: -trend down--0.04 -tele monitoring -cardiology consult appreciated Code(s): R74.8 - ABNORMAL LEVELS OF OTHER SERUM ENZYMES
[2018-03-19] MEDS ORDERED: INSULIN (LEVEMIR) 100 UNITS/ML UNITS SQ SCH (12:03)
--- NOTE | 2018-03-19 13:08 | PN ---
Progress Note, Physician History of Present Illness: Pt seen and examined at bedside. He is awake and alert. He denies shortness of breath. - Current Medication List Current Medications: Active Medications Amlodipine Besylate (Norvasc -) 10 mg PO DAILY [facility] Last Admin: 03/19/18 10:16 Dose: 10 mg Aspirin (Ecotrin -) 81 mg PO DAILY [facility] Last Admin: 03/19/18 10:16 Dose: 81 mg Atorvastatin Calcium (Lipitor -) 20 mg PO HS [facility] Last Admin: 03/18/18 21:12 Dose: 20 mg Cyanocobalamin (Vitamin B12 -) 1,000 mcg PO DAILY [facility] Last Admin: 03/19/18 10:16 Dose: 1,000 mcg Insulin Aspart (Novolog Vial Sliding Scale -) 1 vial SQ [facility]; Protocol Last Admin: 03/19/18 12:23 Dose: 8 units Insulin Detemir (Levemir Vial) 12 units SQ HS [facility] Last Admin: 03/18/18 21:10 Dose: 12 units Insulin Detemir (Levemir Vial) 35 units SQ AM [facility] Bysgf-3-Pwgf Ethyl Esters (Lovaza -) 1 gm PO DAILY [facility] Last Admin: 03/19/18 10:16 Dose: 1 gm - Objective Vital Signs: Vital Signs Temperature 98.1 F 03/19/18 10:00 Pulse Rate 96 H 03/19/18 10:00 Respiratory Rate 18 03/19/18 10:00 Blood Pressure 145/94 03/19/18 10:00 O2 Sat by Pulse Oximetry (%) 97 03/19/18 09:00 Constitutional: Yes: Calm Eyes: Yes: Conjunctiva Clear HENT: Yes: Atraumatic Neck: Yes: Supple Cardiovascular: Yes: S1, S2 Respiratory: Yes: CTA Bilaterally Gastrointestinal: Yes: Soft Genitourinary: Yes: WNL Musculoskeletal: Yes: WNL Edema: Yes Edema: LLE: Trace, RLE: Trace Neurological: Yes: Oriented Psychiatric: Yes: Oriented Labs: CBC, BMP 03/16/18 14:00 03/18/18 05:30 INR, PTT INR 1.03 (0.83-1.09) 03/15/18 12:27 Problem List - Problems (1) CKD (chronic kidney disease) Code(s): N18.9 - CHRONIC KIDNEY DISEASE, UNSPECIFIED Assessment/Plan Current Medications Generic Name Dose Route Start Last Admin Trade Name Shilpa PRN Reason Stop Dose Admin Amlodipine Besylate 10 mg 03/17/18 16:45 03/19/18 10:16 Norvasc - PO 10 mg DAILY [facility] Administration Aspirin 81 mg 03/16/18 10:00 03/19/18 10:16 Ecotrin - PO 81 mg DAILY [facility] Administration Atorvastatin Calcium 20 mg 03/15/18 22:00 03/18/18 21:12 Lipitor - PO 20 mg HS [facility] Administration Cyanocobalamin 1,000 mcg 03/16/18 10:00 03/19/18 10:16 Vitamin B12 - PO 1,000 mcg DAILY [facility] Administration Insulin Aspart 1 vial 03/19/18 12:04 03/19/18 12:23 Novolog Vial Sliding Scale - SQ 8 units ACHS [facility] Administration Protocol Insulin Detemir 12 units 03/18/18 22:00 03/18/18 21:10 Levemir Vial SQ 12 units HS [facility] Administration Insulin Detemir 35 units 03/19/18 12:03 Levemir Vial SQ AM [facility] Xvgui-2-Vrxu Ethyl Esters 1 gm 03/15/18 18:45 03/19/18 10:16 Lovaza - PO 1 gm DAILY [facility] Administration Laboratory Tests 03/18/18 05:30 CHAITANYA Screen Pending c-ANCA Pending p-ANCA Pending Atypical p-ANCA Pending Myeloperoxidase Ab Pending Double Strand DNA Ab <1 Impression 1. CKD 2. JANAE 3. DM 4. chest pain 5. hyperlipidemia 6. HTN 7. hx of Wilms tumor, s/p left nephrectomy Plan - will follow pt in office - vascular eval for fistula, can be done as outpt - follow mri - monitor bp - pt has solitary kidney, unable to do kidney biopsy - renal diet - avoid nsaids - avoid nephrotoxins Dr Bess
--- NOTE | 2018-03-19 19:54 | PN ---
Progress Note (short form) - Note Progress Note: FUV right foot. Also seen for left ankle by ortho. mri negative for om at this time, +grade 1-2 wound granulating, -drainage, + resolving erythema/cellulitis wound grade 1-2 left Abx as per ID. WCC for wound follow up. Santyl to wound left big toe. Will follow till DC. Read and appreciate ortho note.
[2018-03-19] MEDS: ATORVASTATIN CA 20 MG TABLET (FP) PO SCH (21:18)
--- NOTE | 2018-03-19 23:08 | PN ---
Progress Note, Physician Chief Complaint: sitting in bed comfortable History of Present Illness: dm2/ckd,htn ashd,diabetic foot,agreeable to av shunt for possible hd - Current Medication List Current Medications: Active Medications Amlodipine Besylate (Norvasc -) 10 mg PO DAILY [facility] Last Admin: 03/19/18 10:16 Dose: 10 mg Aspirin (Ecotrin -) 81 mg PO DAILY [facility] Last Admin: 03/19/18 10:16 Dose: 81 mg Atorvastatin Calcium (Lipitor -) 20 mg PO HS [facility] Last Admin: 03/19/18 21:18 Dose: 20 mg Cyanocobalamin (Vitamin B12 -) 1,000 mcg PO DAILY [facility] Last Admin: 03/19/18 10:16 Dose: 1,000 mcg Insulin Aspart (Novolog Vial Sliding Scale -) 1 vial SQ [facility]; Protocol Last Admin: 03/19/18 21:18 Dose: 8 units Insulin Detemir (Levemir Vial) 12 units SQ HS [facility] Last Admin: 03/19/18 21:17 Dose: 12 units Insulin Detemir (Levemir Vial) 35 units SQ AM [facility] Pbabi-3-Jgdc Ethyl Esters (Lovaza -) 1 gm PO DAILY [facility] Last Admin: 03/19/18 10:16 Dose: 1 gm - Objective Vital Signs: Vital Signs Temperature 98.3 F 03/19/18 22:00 Pulse Rate 86 03/19/18 22:00 Respiratory Rate 18 03/19/18 22:00 Blood Pressure 149/89 03/19/18 22:00 O2 Sat by Pulse Oximetry (%) 99 03/19/18 21:00 Constitutional: Yes: Anxious Eyes: Yes: EOM Intact HENT: Yes: Normocephalic Neck: Yes: Trachea Midline Cardiovascular: Yes: Regular Rate and Rhythm Respiratory: Yes: CTA Bilaterally Gastrointestinal: Yes: Normal Bowel Sounds ...Rectal Exam: Yes: WNL Genitourinary: Yes: WNL Breast(s): Yes: WNL Musculoskeletal: Yes: Joint Swelling, Muscle Pain, Muscle Weakness Extremities: Yes: Delayed Capillary Refill Edema: LLE: Trace, RLE: Trace Peripheral Pulses WNL: Yes Neurological: Yes: Alert, Oriented Labs: CBC, BMP 03/16/18 14:00 03/18/18 05:30 INR, PTT INR 1.03 (0.83-1.09) 03/15/18 12:27 Problem List - Problems (1) Acute kidney injury superimposed on chronic kidney disease Code(s): N17.9 - ACUTE KIDNEY FAILURE, UNSPECIFIED; N18.9 - CHRONIC KIDNEY DISEASE, UNSPECIFIED (2) Elevated serum creatinine Code(s): R79.89 - OTHER SPECIFIED ABNORMAL FINDINGS OF BLOOD CHEMISTRY (3) Troponin I above reference range Code(s): R74.8 - ABNORMAL LEVELS OF OTHER SERUM ENZYMES (4) Acute renal failure Code(s): N17.9 - ACUTE KIDNEY FAILURE, UNSPECIFIED (5) Chest pain Code(s): R07.9 - CHEST PAIN, UNSPECIFIED Qualifiers: Chest pain type: precordial chest pain (6) Diabetes Code(s): E11.9 - TYPE 2 DIABETES MELLITUS WITHOUT COMPLICATIONS Qualifiers: Diabetes mellitus type: type 1 Diabetes mellitus complication status: with skin complications Diabetes mellitus complication detail: with foot ulcer Qualified Code(s): E10.621 - Type 1 diabetes mellitus with foot ulcer (7) HTN (hypertension) Code(s): I10 - ESSENTIAL (PRIMARY) HYPERTENSION Qualifiers: Hypertension type: essential hypertension Qualified Code(s): I10 - Essential (primary) hypertension (8) Hypercholesterolemia Code(s): E78.0 - PURE HYPERCHOLESTEROLEMIA * DO NOT USE * Assessment/Plan Current Active Problems Acute kidney injury superimposed on chronic kidney disease (Acute) CKD (chronic kidney disease) (Acute) Elevated serum creatinine (Acute) Troponin I above reference range (Acute) Laboratory Results - last 24 hr 03/18/18 03/19/18 03/19/18 05:30 05:50 11:49 POC Glucometer 165 210 CHAITANYA Screen Negative Double Strand DNA Ab <1 Hepatitis A Ab Total Negative Hep Bs Antigen Negative Hep Bs Antibody Non reactive Hep B Core Total Ab Negative 03/19/18 03/19/18 16:48 21:16 POC Glucometer 146 249 CHAITANYA Screen Double Strand DNA Ab Hepatitis A Ab Total Hep Bs Antigen Hep Bs Antibody Hep B Core Total Ab Laboratory Tests 03/19/18 03/19/18 03/19/18 05:50 11:49 16:48 POC Glucometer 165 210 146 03/19/18 21:16 POC Glucometer 249 plan: levemir bid dose titration bgm qid novolog scale
[2018-03-20] MEDS: INSULIN SLIDING SCALE (NOVOLOG) 1 VIAL SQ SCH ×3 (06:38→17:27)
[2018-03-20 06:52] LABS: ANION GAP 6 MMOL/L (8-16); BLOOD UREA NITROGEN 61 mg/dL (7-18); CALCIUM 8.5 mg/dL (8.5-10.1); CHLORIDE 109 mmol/L (98-107); CO2 24 mmol/L (21-32); GLUCOSE,RANDOM 134 mg/dL (74-106); POTASSIUM 4.9 mmol/L (3.5-5.1); SODIUM 139 mmol/L (136-145)
[2018-03-20] MEDS: OMEGA-3 ACID ETHYL ESTERS (FATTY-ACIDS) 1 GM CAPSULE (FP) PO SCH (09:22)
[2018-03-20] MEDS: ASPIRIN COATED 81 MG TABLET.EC PO SCH (09:22)
[2018-03-20] MEDS: CYANOCOBALAMIN 1,000 MCG TABLET (FP) PO SCH (09:23)
[2018-03-20] MEDS: amLODIPine BESYLATE 10 MG TABLET (FP) PO SCH (09:23)
[2018-03-20 14:25] VITALS: BP 150/78; PULSE 100; TEMP 98.6
--- NOTE | 2018-03-20 15:00 | PN ---
Progress Note, Physician History of Present Illness: Pt seen and examined at bedside. He is awake and alert. He denies shortness of breath. He has good appetite. - Current Medication List Current Medications: Active Medications Amlodipine Besylate (Norvasc -) 10 mg PO DAILY [facility] Last Admin: 03/20/18 09:23 Dose: 10 mg Aspirin (Ecotrin -) 81 mg PO DAILY [facility] Last Admin: 03/20/18 09:22 Dose: 81 mg Atorvastatin Calcium (Lipitor -) 20 mg PO HS [facility] Last Admin: 03/19/18 21:18 Dose: 20 mg Cyanocobalamin (Vitamin B12 -) 1,000 mcg PO DAILY [facility] Last Admin: 03/20/18 09:23 Dose: 1,000 mcg Insulin Aspart (Novolog Vial Sliding Scale -) 1 vial SQ [facility]; Protocol Last Admin: 03/20/18 11:25 Dose: 8 units Insulin Detemir (Levemir Vial) 12 units SQ HS [facility] Last Admin: 03/19/18 21:17 Dose: 12 units Insulin Detemir (Levemir Vial) 35 units SQ AM [facility] Last Admin: 03/20/18 07:33 Dose: 35 units Rhosw-9-Sbzo Ethyl Esters (Lovaza -) 1 gm PO DAILY [facility] Last Admin: 03/20/18 09:22 Dose: 1 gm - Objective Vital Signs: Vital Signs Temperature 98.6 F 03/20/18 14:00 Pulse Rate 100 H 03/20/18 14:00 Respiratory Rate 20 03/20/18 14:00 Blood Pressure 150/78 03/20/18 14:00 O2 Sat by Pulse Oximetry (%) 99 03/19/18 21:00 Constitutional: Yes: Calm Eyes: Yes: Conjunctiva Clear HENT: Yes: Atraumatic Cardiovascular: Yes: S1, S2 Respiratory: Yes: CTA Bilaterally Gastrointestinal: Yes: Soft Genitourinary: Yes: WNL Musculoskeletal: Yes: WNL Edema: LLE: Trace, RLE: Trace Neurological: Yes: Oriented Psychiatric: Yes: Oriented Labs: CBC, BMP 03/16/18 14:00 03/20/18 05:30 INR, PTT INR 1.03 (0.83-1.09) 03/15/18 12:27 Problem List - Problems (1) CKD (chronic kidney disease) Code(s): N18.9 - CHRONIC KIDNEY DISEASE, UNSPECIFIED Assessment/Plan Current Medications Generic Name Dose Route Start Last Admin Trade Name Shilpa PRN Reason Stop Dose Admin Amlodipine Besylate 10 mg 03/17/18 16:45 03/20/18 09:23 Norvasc - PO 10 mg DAILY [facility] Administration Aspirin 81 mg 03/16/18 10:00 03/20/18 09:22 Ecotrin - PO 81 mg DAILY [facility] Administration Atorvastatin Calcium 20 mg 03/15/18 22:00 03/19/18 21:18 Lipitor - PO 20 mg HS [facility] Administration Cyanocobalamin 1,000 mcg 03/16/18 10:00 03/20/18 09:23 Vitamin B12 - PO 1,000 mcg DAILY [facility] Administration Insulin Aspart 1 vial 03/20/18 07:00 03/20/18 11:25 Novolog Vial Sliding Scale - SQ 8 units ACHS [facility] Administration Protocol Insulin Detemir 12 units 03/18/18 22:00 03/19/18 21:17 Levemir Vial SQ 12 units HS [facility] Administration Insulin Detemir 35 units 03/19/18 12:03 03/20/18 07:33 Levemir Vial SQ 35 units AM [facility] Administration Wynaw-6-Yjvk Ethyl Esters 1 gm 03/15/18 18:45 03/20/18 09:22 Lovaza - PO 1 gm DAILY [facility] Administration Impression 1. CKD 2. JANAE 3. DM 4. chest pain 5. hyperlipidemia 6. HTN 7. hx of Wilms tumor, s/p left nephrectomy Plan - renal diet - will see pt in office - will need vascular follow up for fistula after discharge - ID follow up for abx and duration - renal workup in progress - kidney transplant eval after discharge - avoid nsaids - avoid nephrotoxins Dr Bess
--- NOTE | 2018-03-20 15:36 | PN ---
Progress Note (short form) - Note Progress Note: ID CONSULT DICTATED NON HEALING FOOT ULCER ? OSTEOMYELITIS CKD ADVISE KEFLEX 500MG PO QD X 7D F/U [facility]
[2018-03-20] MEDS ORDERED: CEPHALEXIN MONOHYDRATE 500 MG CAPSULE (UD) PO SCH (15:45)
--- NOTE | 2018-03-20 16:02 | CONS ---
DATE OF CONSULTATION: DATE OF DICTATION: 03/20/2018 A 62-year-old male, evaluated for cellulitis of the left foot. The patient was admitted to the hospital on March 15, 2018, with worsening renal function. He has a long-standing history of a plantar ulcer involving the left foot. He was evaluated by Podiatry. An MRI was performed and was negative for osteomyelitis. He reports that the wound has significantly improved over the past several months. He denies any purulent drainage. No associated fever or chills. Past medical history positive for insulin-dependent diabetes mellitus, chronic kidney disease, hypertension, hyperlipidemia, history of osteomyelitis of the right 1st toe. PAST SURGICAL HISTORY: Status post nephrectomy for kidney tumor. No known allergies. LABORATORY DATA: White count 5.7, hematocrit 39.8, platelet count 236. Creatinine 5.0. PHYSICAL EXAMINATION: General: He is awake and alert, he is not acutely toxic appearing, afebrile. Heart Sounds: S1, S2. Lungs: Clear. Abdomen: Soft, nontender. Extremities: Positive lower extremity edema. There is a dime-sized superficial ulceration present on the plantar aspect of the great toe. It is superficial with a fibrinous base. There is no purulent drainage. There is slight surrounding erythema. No crepitus or fluctuance. No expressible pus. IMPRESSION: 1. Nonhealing diabetic foot ulcer. 2. Possible cellulitis of the foot. 3. Chronic kidney disease. 4. Insulin-dependent diabetes mellitus. The diabetic foot ulcer does not appear to be clinically infected; however, there is slight erythema present involving the great toe. MRI negative for osteomyelitis. Will empirically treat with Keflex, as adjusted for his chronic kidney disease; give Keflex 500 mg p.o. for 7 days. The patient is to follow up in the Wound Care center in 1 week. Local wound care. Thank you for the kind referral. TILA BARCENAS M.D. [id number]
--- NOTE | 2018-03-20 16:30 | DS ---
Physical Examination Vital Signs: Vital Signs Temperature 98.6 F 03/20/18 14:00 Pulse Rate 100 H 03/20/18 14:00 Respiratory Rate 20 03/20/18 14:00 Blood Pressure 150/78 03/20/18 14:00 O2 Sat by Pulse Oximetry (%) 99 03/19/18 21:00 Findings/Remarks: Patient is a 62 y/o male with past medical history of HTN, DM, Wilms tumor with L nephrectomy that was sent to ER by PMD for elevated BUN/Cr. Patient has history of elevated renal function but has been worsening over time. Patient has been evaluated by renal and BUN/Cr has been in same range since admission. Patient will follow up with renal as outpatient and see vasulcar for possible fistula placement. MRI of L diabetic foot ulcer is neg for osteomyelitis. Patient will be sent home on PO ABT and follow up with podiatry as outpatient. On admission troponin elevated but repeat 0.04. Denies chest pain, dizziness, SOB. Constitutional: Yes: Well Nourished, No Distress, Calm Eyes: Yes: Conjunctiva Clear HENT: Yes: Normocephalic Neck: Yes: Supple Cardiovascular: Yes: Regular Rate and Rhythm Respiratory: Yes: Regular, CTA Bilaterally Gastrointestinal: Yes: Normal Bowel Sounds, Soft Musculoskeletal: Yes: Muscle Weakness Extremities: Yes: Other (R ankle deformity due to past fracture) Wound/Incision: Yes: Clean/Dry (L great toe diabetic ulcer) Neurological: Yes: Alert, Oriented Psychiatric: Yes: Alert, Oriented Labs: CONCHA DEAN 03/16/18 14:00 03/20/18 05:30 Discharge Summary Reason For Visit: ELEVATED TROPONIN LEVEL,CHRONIC KIDNEY DISEASE, Current Active Problems Acute kidney injury superimposed on chronic kidney disease (Acute) CKD (chronic kidney disease) (Acute) Elevated serum creatinine (Acute) Troponin I above reference range (Acute) Procedures: Principal: MRI, EKG, foot/ankle xray Hospital Course: see progress notes CONCHA DEAN 03/16/18 14:00 03/20/18 05:30 Active Medications Amlodipine Besylate (Norvasc -) 10 mg PO DAILY [facility] Last Admin: 03/20/18 09:23 Dose: 10 mg Aspirin (Ecotrin -) 81 mg PO DAILY [facility] Last Admin: 03/20/18 09:22 Dose: 81 mg Atorvastatin Calcium (Lipitor -) 20 mg PO HS [facility] Last Admin: 03/19/18 21:18 Dose: 20 mg Cephalexin HCl (Keflex -) 500 mg PO DAILY [facility] Last Admin: 03/20/18 16:03 Dose: 500 mg Cyanocobalamin (Vitamin B12 -) 1,000 mcg PO DAILY [facility] Last Admin: 03/20/18 09:23 Dose: 1,000 mcg Insulin Aspart (Novolog Vial Sliding Scale -) 1 vial SQ ACHS [facility]; Protocol Last Admin: 03/20/18 11:25 Dose: 8 units Insulin Detemir (Levemir Vial) 12 units SQ HS [facility] Last Admin: 03/19/18 21:17 Dose: 12 units Insulin Detemir (Levemir Vial) 35 units SQ AM [facility] Last Admin: 03/20/18 07:33 Dose: 35 units Zuoxy-5-Ufid Ethyl Esters (Lovaza -) 1 gm PO DAILY [facility] Last Admin: 03/20/18 09:22 Dose: 1 gm Laboratory Results - last 24 hr 03/18/18 03/19/18 03/19/18 05:30 16:48 21:16 Sodium Potassium Chloride Carbon Dioxide Anion Gap BUN Creatinine Creat Clearance w eGFR POC Glucometer 146 249 Random Glucose Calcium [place] Screen Negative HCV Quantitation Hcv not detected HCV RNA log copies/mL TNP 03/20/18 03/20/18 03/20/18 05:16 05:30 11:24 Sodium 139 Potassium 4.9 Chloride 109 H Carbon Dioxide 24 Anion Gap 6 L BUN 61 H Creatinine 5.0 H Creat Clearance w eGFR 11.82 POC Glucometer 133 232 Random Glucose 134 H Calcium 8.5 [place] Screen HCV Quantitation HCV RNA log copies/mL 03/20/18 16:07 Sodium Potassium Chloride Carbon Dioxide Anion Gap BUN Creatinine Creat Clearance w eGFR POC Glucometer 203 Random Glucose Calcium [place] Screen HCV Quantitation HCV RNA log copies/mL Laboratory Tests 03/15/18 03/15/18 03/15/18 12:27 12:27 12:27 WBC 6.2 RBC 4.75 Hgb 13.5 Hct 39.6 MCV 83.3 MCH 28.5 MCHC 34.2 RDW 14.3 Plt Count 238 MPV 7.5 Absolute Neuts (auto) 4.7 Neutrophils % 76.8 Lymphocytes % 12.7 D Monocytes % 6.5 Eosinophils % 2.7 Basophils % 1.3 Nucleated RBC % 0 PT with INR 12.10 INR 1.03 Sodium 140 Potassium 4.6 Chloride 109 H Carbon Dioxide 23 Anion Gap 8 BUN 51 H Creatinine 4.6 H Creat Clearance w eGFR 13.01 POC Glucometer Random Glucose 137 H Hemoglobin A1c % Calcium 8.7 Phosphorus 3.8 Magnesium 2.2 Total Bilirubin 0.3 AST 27 ALT 26 Alkaline Phosphatase 148 H Creatine Kinase 413 H Creatine Kinase Index 4.4 CK-MB (CK-2) 18.4 H Troponin I 0.06 H Total Protein 6.5 Albumin 3.2 L Triglycerides Cholesterol Total LDL Cholesterol HDL Cholesterol Urine Color Urine Appearance Urine pH Ur Specific [place] Urine Protein Urine Glucose (UA) Urine Ketones Urine Blood Urine Nitrite Urine Bilirubin Urine Urobilinogen Ur Leukocyte Esterase Urine WBC (Auto) Urine RBC (Auto) Urine Bacteria Urine Mucus [place] Screen Double Strand DNA Ab Hepatitis A Ab Total Hep Bs Antigen Hep Bs Antibody Hep B Core Total Ab HCV Quantitation HCV RNA log copies/mL 03/15/18 03/15/18 03/15/18 12:52 17:42 18:45 WBC RBC Hgb Hct MCV MCH MCHC RDW Plt Count MPV Absolute Neuts (auto) Neutrophils % Lymphocytes % Monocytes % Eosinophils % Basophils % Nucleated RBC % PT with INR INR Sodium Potassium Chloride Carbon Dioxide Anion Gap BUN Creatinine Creat Clearance w eGFR POC Glucometer 92 Random Glucose Hemoglobin A1c % Calcium Phosphorus Magnesium Total Bilirubin AST ALT Alkaline Phosphatase Creatine Kinase Creatine Kinase Index CK-MB (CK-2) Troponin I 0.06 H Total Protein Albumin Triglycerides Cholesterol Total LDL Cholesterol HDL Cholesterol Urine Color Ltyellow Urine Appearance Slcloudy Urine pH 5.0 Ur Specific [place] 1.016 Urine Protein 3+ H Urine Glucose (UA) 3+ H Urine Ketones Negative Urine Blood 2+ H Urine Nitrite Negative Urine Bilirubin Negative Urine Urobilinogen Negative Ur Leukocyte Esterase Negative Urine WBC (Auto) <1 Urine RBC (Auto) 1 Urine Bacteria Rare Urine Mucus Rare [place] Screen Double Strand DNA Ab Hepatitis A Ab Total Hep Bs Antigen Hep Bs Antibody Hep B Core Total Ab HCV Quantitation HCV RNA log copies/mL 03/15/18 03/15/18 03/16/18 18:58 21:57 05:30 WBC RBC Hgb Hct MCV MCH MCHC RDW Plt Count MPV Absolute Neuts (auto) Neutrophils % Lymphocytes % Monocytes % Eosinophils % Basophils % Nucleated RBC % PT with INR INR Sodium Potassium Chloride Carbon Dioxide Anion Gap BUN Creatinine Creat Clearance w eGFR POC Glucometer 217 Random Glucose Hemoglobin A1c % Calcium Phosphorus Magnesium Total Bilirubin AST ALT Alkaline Phosphatase Creatine Kinase Creatine Kinase Index CK-MB (CK-2) Troponin I Cancelled Total Protein Albumin Triglycerides 179 H Cholesterol 134 Total LDL Cholesterol 73 HDL Cholesterol 34 L Urine Color Urine Appearance Urine pH Ur Specific [place] Urine Protein Urine Glucose (UA) Urine Ketones Urine Blood Urine Nitrite Urine Bilirubin Urine Urobilinogen Ur Leukocyte Esterase Urine WBC (Auto) Urine RBC (Auto) Urine Bacteria Urine Mucus [place] Screen Double Strand DNA Ab Hepatitis A Ab Total Hep Bs Antigen Hep Bs Antibody Hep B Core Total Ab HCV Quantitation HCV RNA log copies/mL 03/16/18 03/16/18 03/16/18 05:30 06:33 11:09 WBC RBC Hgb Hct MCV MCH MCHC RDW Plt Count MPV Absolute Neuts (auto) Neutrophils % Lymphocytes % Monocytes % Eosinophils % Basophils % Nucleated RBC % PT with INR INR Sodium Potassium Chloride Carbon Dioxide Anion Gap BUN Creatinine Creat Clearance w eGFR POC Glucometer 193 260 Random Glucose Hemoglobin A1c % 8.3 H Calcium Phosphorus Magnesium Total Bilirubin AST ALT Alkaline Phosphatase Creatine Kinase Creatine Kinase Index CK-MB (CK-2) Troponin I Total Protein Albumin Triglycerides Cholesterol Total LDL Cholesterol HDL Cholesterol Urine Color Urine Appearance Urine pH Ur Specific [place] Urine Protein Urine Glucose (UA) Urine Ketones Urine Blood Urine Nitrite Urine Bilirubin Urine Urobilinogen Ur Leukocyte Esterase Urine WBC (Auto) Urine RBC (Auto) Urine Bacteria Urine Mucus [place] Screen Double Strand DNA Ab Hepatitis A Ab Total Hep Bs Antigen Hep Bs Antibody Hep B Core Total Ab HCV Quantitation HCV RNA log copies/mL 03/16/18 03/16/18 03/16/18 14:00 14:00 14:10 WBC 5.7 RBC 4.77 Hgb 13.6 Hct 39.8 MCV 83.4 MCH 28.4 MCHC 34.1 RDW 14.1 Plt Count 236 MPV 7.5 Absolute Neuts (auto) Neutrophils % Lymphocytes % Monocytes % Eosinophils % Basophils % Nucleated RBC % PT with INR INR Sodium Cancelled 137 Potassium Cancelled 4.6 Chloride Cancelled 107 Carbon Dioxide Cancelled 20 L Anion Gap Cancelled 10 BUN Cancelled 52 H Creatinine Cancelled 4.7 H Creat Clearance w eGFR Cancelled 12.69 POC Glucometer Random Glucose Cancelled 319 H* Hemoglobin A1c % Calcium Cancelled 8.4 L Phosphorus Magnesium Total Bilirubin Cancelled 0.3 AST Cancelled 23 ALT Cancelled 24 Alkaline Phosphatase Cancelled 142 H Creatine Kinase Creatine Kinase Index CK-MB (CK-2) Troponin I 0.04 Total Protein Cancelled 6.5 Albumin Cancelled 3.2 L Triglycerides Cholesterol Total LDL Cholesterol HDL Cholesterol Urine Color Urine Appearance Urine pH Ur Specific [place] Urine Protein Urine Glucose (UA) Urine Ketones Urine Blood Urine Nitrite Urine Bilirubin Urine Urobilinogen Ur Leukocyte Esterase Urine WBC (Auto) Urine RBC (Auto) Urine Bacteria Urine Mucus [place] Screen Double Strand DNA Ab Hepatitis A Ab Total Hep Bs Antigen Hep Bs Antibody Hep B Core Total Ab HCV Quantitation HCV RNA log copies/mL 03/16/18 03/16/18 03/17/18 17:24 20:59 05:24 WBC RBC Hgb Hct MCV MCH MCHC RDW Plt Count MPV Absolute Neuts (auto) Neutrophils % Lymphocytes % Monocytes % Eosinophils % Basophils % Nucleated RBC % PT with INR INR Sodium Potassium Chloride Carbon Dioxide Anion Gap BUN Creatinine Creat Clearance w eGFR POC Glucometer 247 325 232 Random Glucose Hemoglobin A1c % Calcium Phosphorus Magnesium Total Bilirubin AST ALT Alkaline Phosphatase Creatine Kinase Creatine Kinase Index CK-MB (CK-2) Troponin I Total Protein Albumin Triglycerides Cholesterol Total LDL Cholesterol HDL Cholesterol Urine Color Urine Appearance Urine pH Ur Specific [place] Urine Protein Urine Glucose (UA) Urine Ketones Urine Blood Urine Nitrite Urine Bilirubin Urine Urobilinogen Ur Leukocyte Esterase Urine WBC (Auto) Urine RBC (Auto) Urine Bacteria Urine Mucus [place] Screen Double Strand DNA Ab Hepatitis A Ab Total Hep Bs Antigen Hep Bs Antibody Hep B Core Total Ab HCV Quantitation HCV RNA log copies/mL 03/17/18 03/17/18 03/17/18 11:32 16:36 21:47 WBC RBC Hgb Hct MCV MCH MCHC RDW Plt Count MPV Absolute Neuts (auto) Neutrophils % Lymphocytes % Monocytes % Eosinophils % Basophils % Nucleated RBC % PT with INR INR Sodium Potassium Chloride Carbon Dioxide Anion Gap BUN Creatinine Creat Clearance w eGFR POC Glucometer 291 341 235 Random Glucose Hemoglobin A1c % Calcium Phosphorus Magnesium Total Bilirubin AST ALT Alkaline Phosphatase Creatine Kinase Creatine Kinase Index CK-MB (CK-2) Troponin I Total Protein Albumin Triglycerides Cholesterol Total LDL Cholesterol HDL Cholesterol Urine Color Urine Appearance Urine pH Ur Specific [place] Urine Protein Urine Glucose (UA) Urine Ketones Urine Blood Urine Nitrite Urine Bilirubin Urine Urobilinogen Ur Leukocyte Esterase Urine WBC (Auto) Urine RBC (Auto) Urine Bacteria Urine Mucus [place] Screen Double Strand DNA Ab Hepatitis A Ab Total Hep Bs Antigen Hep Bs Antibody Hep B Core Total Ab HCV Quantitation HCV RNA log copies/mL 03/18/18 03/18/18 03/18/18 05:30 05:30 05:34 WBC RBC Hgb Hct MCV MCH MCHC RDW Plt Count MPV Absolute Neuts (auto) Neutrophils % Lymphocytes % Monocytes % Eosinophils % Basophils % Nucleated RBC % PT with INR INR Sodium 137 Potassium 4.9 Chloride 107 Carbon Dioxide 23 Anion Gap 7 L BUN 55 H Creatinine 4.7 H Creat Clearance w eGFR 12.69 POC Glucometer 241 Random Glucose 259 H Hemoglobin A1c % Calcium 8.7 Phosphorus Magnesium Total Bilirubin AST ALT Alkaline Phosphatase Creatine Kinase Creatine Kinase Index CK-MB (CK-2) Troponin I Total Protein Albumin Triglycerides Cholesterol Total LDL Cholesterol HDL Cholesterol Urine Color Urine Appearance Urine pH Ur Specific [place] Urine Protein Urine Glucose (UA) Urine Ketones Urine Blood Urine Nitrite Urine Bilirubin Urine Urobilinogen Ur Leukocyte Esterase Urine WBC (Auto) Urine RBC (Auto) Urine Bacteria Urine Mucus [place] Screen Negative Double Strand DNA Ab <1 Hepatitis A Ab Total Negative Hep Bs Antigen Negative Hep Bs Antibody Non reactive Hep B Core Total Ab Negative HCV Quantitation Hcv not detected HCV RNA log copies/mL TNP 03/18/18 03/18/18 03/18/18 11:29 17:01 21:09 WBC RBC Hgb Hct MCV MCH MCHC RDW Plt Count MPV Absolute Neuts (auto) Neutrophils % Lymphocytes % Monocytes % Eosinophils % Basophils % Nucleated RBC % PT with INR INR Sodium Potassium Chloride Carbon Dioxide Anion Gap BUN Creatinine Creat Clearance w eGFR POC Glucometer 272 227 302 Random Glucose Hemoglobin A1c % Calcium Phosphorus Magnesium Total Bilirubin AST ALT Alkaline Phosphatase Creatine Kinase Creatine Kinase Index CK-MB (CK-2) Troponin I Total Protein Albumin Triglycerides Cholesterol Total LDL Cholesterol HDL Cholesterol Urine Color Urine Appearance Urine pH Ur Specific [place] Urine Protein Urine Glucose (UA) Urine Ketones Urine Blood Urine Nitrite Urine Bilirubin Urine Urobilinogen Ur Leukocyte Esterase Urine WBC (Auto) Urine RBC (Auto) Urine Bacteria Urine Mucus [place] Screen Double Strand DNA Ab Hepatitis A Ab Total Hep Bs Antigen Hep Bs Antibody Hep B Core Total Ab HCV Quantitation HCV RNA log copies/mL 03/19/18 03/19/18 03/19/18 05:50 11:49 16:48 WBC RBC Hgb Hct MCV MCH MCHC RDW Plt Count MPV Absolute Neuts (auto) Neutrophils % Lymphocytes % Monocytes % Eosinophils % Basophils % Nucleated RBC % PT with INR INR Sodium Potassium Chloride Carbon Dioxide Anion Gap BUN Creatinine Creat Clearance w eGFR POC Glucometer 165 210 146 Random Glucose Hemoglobin A1c % Calcium Phosphorus Magnesium Total Bilirubin AST ALT Alkaline Phosphatase Creatine Kinase Creatine Kinase Index CK-MB (CK-2) Troponin I Total Protein Albumin Triglycerides Cholesterol Total LDL Cholesterol HDL Cholesterol Urine Color Urine Appearance Urine pH Ur Specific [place] Urine Protein Urine Glucose (UA) Urine Ketones Urine Blood Urine Nitrite Urine Bilirubin Urine Urobilinogen Ur Leukocyte Esterase Urine WBC (Auto) Urine RBC (Auto) Urine Bacteria Urine Mucus [place] Screen Double Strand DNA Ab Hepatitis A Ab Total Hep Bs Antigen Hep Bs Antibody Hep B Core Total Ab HCV Quantitation HCV RNA log copies/mL 03/19/18 03/20/18 03/20/18 21:16 05:16 05:30 WBC RBC Hgb Hct MCV MCH MCHC RDW Plt Count MPV Absolute Neuts (auto) Neutrophils % Lymphocytes % Monocytes % Eosinophils % Basophils % Nucleated RBC % PT with INR INR Sodium 139 Potassium 4.9 Chloride 109 H Carbon Dioxide 24 Anion Gap 6 L BUN 61 H Creatinine 5.0 H Creat Clearance w eGFR 11.82 POC Glucometer 249 133 Random Glucose 134 H Hemoglobin A1c % Calcium 8.5 Phosphorus Magnesium Total Bilirubin AST ALT Alkaline Phosphatase Creatine Kinase Creatine Kinase Index CK-MB (CK-2) Troponin I Total Protein Albumin Triglycerides Cholesterol Total LDL Cholesterol HDL Cholesterol Urine Color Urine Appearance Urine pH Ur Specific [place] Urine Protein Urine Glucose (UA) Urine Ketones Urine Blood Urine Nitrite Urine Bilirubin Urine Urobilinogen Ur Leukocyte Esterase Urine WBC (Auto) Urine RBC (Auto) Urine Bacteria Urine Mucus [place] Screen Double Strand DNA Ab Hepatitis A Ab Total Hep Bs Antigen Hep Bs Antibody Hep B Core Total Ab HCV Quantitation HCV RNA log copies/mL 03/20/18 03/20/18 11:24 16:07 WBC RBC Hgb Hct MCV MCH MCHC RDW Plt Count MPV Absolute Neuts (auto) Neutrophils % Lymphocytes % Monocytes % Eosinophils % Basophils % Nucleated RBC % PT with INR INR Sodium Potassium Chloride Carbon Dioxide Anion Gap BUN Creatinine Creat Clearance w eGFR POC Glucometer 232 203 Random Glucose Hemoglobin A1c % Calcium Phosphorus Magnesium Total Bilirubin AST ALT Alkaline Phosphatase Creatine Kinase Creatine Kinase Index CK-MB (CK-2) Troponin I Total Protein Albumin Triglycerides Cholesterol Total LDL Cholesterol HDL Cholesterol Urine Color Urine Appearance Urine pH Ur Specific [place] Urine Protein Urine Glucose (UA) Urine Ketones Urine Blood Urine Nitrite Urine Bilirubin Urine Urobilinogen Ur Leukocyte Esterase Urine WBC (Auto) Urine RBC (Auto) Urine Bacteria Urine Mucus [place] Screen Double Strand DNA Ab Hepatitis A Ab Total Hep Bs Antigen Hep Bs Antibody Hep B Core Total Ab HCV Quantitation HCV RNA log copies/mL Condition: Stable - Instructions Diet, Activity, Other Instructions: Patient to follow up with PMD 3-4 days Patient to follow up with Dr Bess outpatient in 1 week Patient to follow up with Dr Guillen for possible fistula placement in 1 week Patient to follow up with Dr Alfonso in 1 week Low Na/renal diet 1L fluid restriction cont with antibiotic therapy cont with medication regimen as prescribed if develop chest pain, palpitations, decreased urine output call PMD or go to nearest ER Referrals: Flex Mckenzie MD [Primary Care Provider] - Carmelo Bess MD [Staff Physician] - Uri Guillen MD [Non Staff, Medical] - Gennaro Alfonso DPM [Staff Physician] - Disposition: HOME - Home Medications Comprehensive Discharge Medication List: Ambulatory Orders Aspirin [Ecotrin] 81 mg PO DAILY 09/03/15 Amlodipine Besylate 5 mg PO DAILY 10/06/15 Atorvastatin Ca [Lipitor] 20 mg PO HS 03/15/18 Cyanocobalamin [Vitamin B12 -] 1,000 mcg PO DAILY 03/15/18 [place]-3 Fatty Acids/Fish Oil [Fish Oil 1,000 mg Capsule] 1 each PO DAILY
[2018-03-21 14:13] LABS: ATYPICAL pANCA <1:20 titer (Neg:<1:20); C-ANCA <1:20 titer (Neg:<1:20); P-ANCA <1:20 titer (Neg:<1:20)
== END 2018-03-20 17:59 | disposition home or self-care (01) | DRG 683 ==
LOC: JER 11:35 → JERBED 13:25 → J4W 15:30
PROVIDERS: ADMIT Family Medicine; ATTEND Family Medicine
DX: N17.9 Acute kidney failure, unspecified (principal); L97.528 Non-pressure chronic ulcer of other part of left foot with other specified severity; S82.891P Other fracture of right lower leg, subsequent encounter for closed fracture with malunion; I12.9 Hypertensive chronic kidney disease with stage 1 through stage 4 chronic kidney disease, or unspecified chronic kidney disease; Z90.5 Acquired absence of kidney; Z85.528 Personal history of other malignant neoplasm of kidney; E11.22 Type 2 diabetes mellitus with diabetic chronic kidney disease; E11.21 Type 2 diabetes mellitus with diabetic nephropathy; N18.9 Chronic kidney disease, unspecified; Z79.4 Long term (current) use of insulin; L03.032 Cellulitis of left toe; M14.671 Charcot's joint, right ankle and foot; R74.8 Abnormal levels of other serum enzymes; R00.0 Tachycardia, unspecified; E66.9 Obesity, unspecified; Z68.33 Body mass index [BMI] 33.0-33.9, adult; R63.0 Anorexia; E78.5 Hyperlipidemia, unspecified; M41.9 Scoliosis, unspecified; I25.10 Atherosclerotic heart disease of native coronary artery without angina pectoris; R07.9 Chest pain, unspecified; W01.0XXD Fall on same level from slipping, tripping and stumbling without subsequent striking against object, subsequent encounter; M77.31 Calcaneal spur, right foot
CPT/HCPCS: 36415; 73610-TC-RT-FY; 73630-TC-RT-FY; 73718-LT; 76775-TC; 80048; 80053; 80061; 81003; 81015; 82550; 82553; 82962; 83036; 83520; 83721; 83735; 84100; 84484; 85025; 85027; 85610; 86038; 86225; 86256; 86704; 86706; 86708; 87086; 87340; 87522; 93005; 93010; 99281-25

== ENCOUNTER 2018-05-01 05:15 | Day surgery (SDC) | payer OTHER ==
[2018-04-30 13:59] VITALS: BMI 32.6
[2018-05-01] MEDS ORDERED: ROPIVACAINE HCL 0.5% 30ML VIAL ONE (09:58)
[2018-05-01] MEDS ORDERED: MIDAZOLAM HCL 2 MG/2 ML SINGLE DOSE VIAL ONE ×2 (10:02→10:03)
--- NOTE | 2018-05-01 10:02 | HP ---
Admitting History and Physical - Admission Chief Complaint: Pt here for creation of left avf for preparation for HD Limitations to Obtaining History: No Limitations - Past Medical History Cardiovascular: Yes: HTN, Hyperlipdemia Renal/: Yes: Renal Inusuff, Other (wilms tumor) Musculoskeletal: Yes: Other (poorly healed right ankle fracture, +grade 1-2 wound plantar left hallux, +hallux limitus left) Endocrine: Yes: Diabetes Mellitus - Past Surgical History Past Surgical History: Yes: Appendectomy, Nephrectomy - Smoking History Smoking history: Never smoked Have you smoked in the past 12 months: No Aproximately how many cigarettes per day: 0 - Alcohol/Substance Use Hx Alcohol Use: No - Social History ADL: Independent Home Medications - Allergies Allergies/Adverse Reactions: Allergies Allergy/AdvReac Type Severity Reaction Status Date / Time IV DYE Allergy Uncoded 04/30/18 14:20 - Home Medications Home Medications: Ambulatory Orders Aspirin [Ecotrin] 81 mg PO DAILY 09/03/15 Cyanocobalamin [Vitamin B12 -] 1,000 mcg PO DAILY 03/15/18 Insulin Sliding Scale [Novolog Vial Sliding Scale -] 1 vial SQ ACHS #100 units 03/20/18 Amlodipine Besylate [Norvasc -] 5 mg PO DAILY 04/30/18 Atorvastatin Ca [Lipitor] 20 mg PO DAILY 04/30/18 Fish Oil/Borage/Flax/Om3,6,9 1 [Cana 3-6-9 Complex Softgel] 1 each PO DAILY Insulin (Levemir) [Levemir Vial] 20 units SQ BID 04/30/18 Losartan Potassium 25 mg PO DAILY 05/01/18 Review of Systems - Review of Systems Constitutional: reports: No Symptoms Eyes: reports: No Symptoms HENT: reports: No Symptoms Neck: reports: No Symptoms Cardiovascular: reports: No Symptoms Respiratory: reports: No Symptoms Gastrointestinal: reports: No Symptoms Genitourinary: reports: No Symptoms Musculoskeletal: reports: No Symptoms Integumentary: reports: No Symptoms Neurological: reports: No Symptoms Endocrine: reports: No Symptoms Hematology/Lymphatic: reports: No Symptoms Psychiatric: reports: No Symptoms Physical Examination Vital Signs: Vital Signs Temperature 98.1 F 05/01/18 09:26 Pulse Rate 111 H 05/01/18 09:26 Respiratory Rate 18 05/01/18 09:26 Blood Pressure 153/85 05/01/18 09:26 O2 Sat by Pulse Oximetry (%) 98 05/01/18 09:37 Constitutional: Yes: Well Nourished, No Distress, Calm Eyes: Yes: WNL, Conjunctiva Clear, EOM Intact HENT: Yes: WNL, Atraumatic, Normocephalic Neck: Yes: WNL, Supple, Trachea Midline Cardiovascular: Yes: WNL, Regular Rate and Rhythm Respiratory: Yes: WNL, Regular, CTA Bilaterally Gastrointestinal: Yes: WNL, Normal Bowel Sounds Musculoskeletal: Yes: WNL Extremities: Yes: WNL Edema: No Peripheral Pulses WNL: Yes Integumentary: Yes: WNL Neurological: Yes: WNL, Alert, Oriented ...Motor Strength: WNL Psychiatric: Yes: WNL Problem List - Problems (1) Chronic renal disease Assessment/Plan: for left avf creation today Code(s): N18.9 - CHRONIC KIDNEY DISEASE, UNSPECIFIED
[2018-05-01] MEDS ORDERED: POVIDONE-IODINE OINTMENT 10% - 28.4 GM TUBE ONE (10:04)
[2018-05-01] MEDS ORDERED: HEPARIN NA (PORCINE) 5,000 UNITS/ML 1ML VIAL ONE (10:04)
[2018-05-01] MEDS ORDERED: ceFAZolin SODIUM 1 GM VIAL IVPB ONE (10:41)
[2018-05-01] MEDS ORDERED: LIDOCAINE HCL 1%, 10 MG/ML (20ML VIAL) NR ONE ×2 (10:42)
--- NOTE | 2018-05-01 12:06 | OP ---
Operative Note - Note: Operative Date: 05/01/18 Pre-Operative Diagnosis: CRF Operation: Creation of left cephalic vein fistua. Post-Operative Diagnosis: Same as Pre-op Surgeon: Uri Guillen Zipper Trimmer: Anayeli Stevens Anesthesia: Fractional Estimated Blood Loss (mls): 25 Operative Report Dictated: Yes
[2018-05-01] MEDS ORDERED: ONDANSETRON 4 MG/2 ML VIAL IVPUSH PRN (12:27)
[2018-05-01] MEDS ORDERED: oxyCODONE HCL 5 MG TABLET PO PRN (12:27)
--- NOTE | 2018-05-01 12:35 | SURG ---
Surgery Signs Cleaner Note Signs Cleaner: Anayeli Stevens PA-C (Suzy) Date of Service: 05/01/18 Diagnosis: Chronic Renal Failure Procedure: Creation of left cephalic vein fistua. I was present for the entirety of the operative procedure. For further detail, please refer to operative report. Visit type - Case Type Case Type: Scheduled - Emergency Emergency Visit: No - New patient This patient is new to me today: Yes Date on this admission: 05/01/18 - Critical Care Critical Care patient: No
--- NOTE | 2018-05-01 12:43 | OP ---
DATE OF OPERATION: 05/01/2018 PREOPERATIVE DIAGNOSIS: Chronic renal failure. POSTOPERATIVE DIAGNOSIS: Chronic renal failure. PROCEDURE: Creation of left cephalic vein fistula. SURGEON: Uri Baptiste DO VENDING MACHINE SERVICER: VON assisted me on this case. ANESTHESIA: Nerve block and fractional. BLOOD LOSS: 25 mL. DESCRIPTION OF PROCEDURE: The patient is a 63-year-old male that has chronic renal failure and needs dialysis in the next year or 6 months. He needs a permanent dialysis access placement in the form of a fistula. Preoperative ultrasound showed that he has good cephalic vein in his left arm. Patient came into ambulatory surgery. Patient was consented for the procedure, understanding all risks, benefits, and alternatives. Preoperatively in the holding area patient received a supraclavicular nerve block by Anesthesia. Patient was then brought into the operating room and laid in a supine manner on the table. Patient's left arm was then prepped and draped in sterile surgical manner. Under ultrasound guidance we did map out our cephalic vein and the brachial artery below the antecubital fossa, and those were marked, and a transverse incision was drawn across them. We then went ahead and injected 10 mL of lidocaine 1% over the incision. We then took a No. 15-blade and made a 6-cm incision. Bovie electrocautery was used to control hemostasis, and we were able to use Bovie electrocautery and get down through all the subcutaneous tissue. We then dissected out our cephalic vein. Cephalic vein was dissected anteriorly and posteriorly. All branches were ligated using 4-0 silk. We then went medially, and we dissected through the fascia and got down to our brachial artery. Brachial artery was dissected anteriorly and posteriorly and Vesseloops were placed proximally and distally. IV heparin, 5000 units, was administered to the patient. We then ligated our cephalic vein distally using 3-0 silk. We then placed a 5-Moroc[place] feeding tube inside the vein, and the feeding tube gave us good drawback and flushed easily. We then used a Micro Wood, and we were able to make a 7-mm venotomy on the vein. After 3 minutes of being on IV heparin we got distal and proximal control on our artery. Using a 15-blade we made an arteriotomy which was extended to 7 mm using Wood scissors. Stay sutures of 6-0 Prolene were placed on the artery. We then used 6-0 Prolene double arm and went outside in on the vein, inside out on the artery and ran the suture around, forming anastomosis between the artery and the vein. Once the anastomosis was completed, we opened the distal artery first, then the proximal artery, and there was a good thrill in our AV fistula. The wound was well irrigated. Surgicel was placed. Vicryl 3-0 was used and subcutaneous tissue was approximated in interrupted manner, and the skin was closed with skin jareth. Tegaderms and 4 x 4's were placed. Patient tolerated the procedure with no complications. Total blood loss 25 mL. Patient was transferred to PACU in stable condition with no complications. URI BAPTISTE DO [id number]
[2018-05-01 13:11] VITALS: TEMP 97.7
[2018-05-01 15:59] VITALS: BP 140/55; PULSE 92
== END 2018-05-01 14:30 | disposition home or self-care (01) ==
LOC: JASU-SURG 05:15
PROVIDERS: ATTEND Surgery Vascular Surgery
PROC: 03170ZD Bypass Right Brachial Artery to Upper Arm Vein, Open Approach (ICD-10-PCS; principal; 2018-05-01 11:00)
DX: I12.0 Hypertensive chronic kidney disease with stage 5 chronic kidney disease or end stage renal disease (principal)
CPT/HCPCS: 82962; 94760; J1644

== ENCOUNTER 2018-05-16 13:43 | Emergency (ER) | payer OTHER ==
[2018-05-16 13:59] VITALS: BP 151/75; PULSE 102; TEMP 98.6; BMI 33.4
--- NOTE | 2018-05-16 15:29 | PDOC ---
History of Present Illness - General Stated Complaint: sent by pcp Time Seen by Provider: 05/16/18 14:31 - History of Present Illness Initial Comments: Wilian Manrique is a 63yo man with a PMH of HTN, HLD, IDDM, CKD s/p LUE fistula creation 2wks ago, Wilm's tumor (age 4) who was sent to the ED due to hyperkalemia. Per Mr Manrique, Dr Bess directed him to come to the ED. Dr Bess was present in the ED for additional information; he states that Mr Manrique's potassium was 5.8, though he apparently does not have any symtpoms. Most recent Cr was in the mid 4's. Dr Bess feels that the hyperkalemia is most likely due to a recent increase in the pt's losartan dose, and he recommended switching to hydralazine (already prescribed). He would like evaluation for hyperkalemia and treatment as needed, with avoidance of dialysis at this time until the pt's recently placed AVF is mature. Mr Manrique states that he has felt well recently and denies any current symptoms except for LUE swelling following fistula placement. He states that the incision healed well, but his arm has been noticeably swollen and his hand cool to touch since the fistula was created. He saw Dr Guillen for follow up yesterday and was scheduled for an ultrasound on Saturday. He denies any new numbness, tingling, or weakness in the left hand. He additionally denies any systemic symptoms such as chest pain, SOB, change in urinary output or dysuria, or abdominal pain. Past History - Past Medical History Allergies/Adverse Reactions: Allergies Allergy/AdvReac Type Severity Reaction Status Date / Time Iodinated Contrast- Oral and Allergy Intermediate Hives Verified 05/16/18 13:59 IV Dye Home Medications: Ambulatory Orders Aspirin [Ecotrin] 81 mg PO DAILY 09/03/15 Cyanocobalamin [Vitamin B12 -] 1,000 mcg PO DAILY 03/15/18 Insulin Sliding Scale [Novolog Vial Sliding Scale -] 1 vial SQ ACHS #100 units 03/20/18 Amlodipine Besylate [Norvasc -] 5 mg PO DAILY 04/30/18 Atorvastatin Ca [Lipitor] 20 mg PO DAILY 04/30/18 Fish Oil/Borage/Flax/Om3,6,9 1 [[place] 3-6-9 Complex Softgel] 1 each PO DAILY Insulin (Levemir) [Levemir Vial] 20 units SQ BID 04/30/18 Hydralazine HCl 25 mg PO TID 15 Days #45 tablet 05/16/18 Anemia: No Asthma: No Cancer: No Cardiac Disorders: No CVA: No COPD: No CHF: No Dementia: No Diabetes: Yes GI Disorders: No Disorders: No HTN: Yes Hypercholesterolemia: Yes Liver Disease: No Seizures: No Thyroid Disease: No - Surgical History Abdominal Surgery: Yes Appendectomy: Yes Cardiac Surgery: No Cholecystectomy: No Lung Surgery: No Neurologic Surgery: No Orthopedic Surgery: Yes (rotator cuff right shoulder) - Suicide/Smoking/Psychosocial Hx Smoking History: Never smoked Have you smoked in the past 12 months: No Number of Cigarettes Smoked Daily: 0 Information on smoking cessation initiated: No Hx Alcohol Use: No Drug/Substance Use Hx: No Substance Use Type: None Hx Substance Use Treatment: No Review of Systems - Review of Systems Comments:: General: No fevers, no chills, no weight or appetite change, no malaise HEENT: No changes in vision, no changes in hearing, no congestion, no sore throat CV: No chest pain, no palpitations, no LE edema Pulm: No SOB, no cough, no wheezing GI: No nausea or vomiting, no change in bowel habits, no melena : No frequency, no urgency, no dysuria Musc: No back pain, no joint swelling, no recent injury Skin: No rash, no lesions, no erythema Endo: No excessive thirst, no heat/cold intolerance Heme: No unusual bruising or bleeding, no swollen glands Neuro: No syncope, no numbness/tingling, no focal weakness Vasc: No claudication. +LUE fistula, +swelling Psych: No recent change in mood, no SI or HI *Physical Exam - Vital Signs Last Vital Signs Temp Pulse Resp BP Pulse Ox 98.6 F 102 H 19 151/75 100 05/16/18 13:56 05/16/18 13:56 05/16/18 13:56 05/16/18 13:56 05/16/18 13:56 - Physical Exam Comments: General: Comfortable, no acute distress HEENT: PERRL, EOMI, MMM, voice normal, normal neck ROM Cards: RRR, no murmur appreciated Pulm: Comfortable on room air, clear to auscultation bilaterally Abd: Soft, nontender, nondistended : No CVA tenderness Ext: Atraumatic. No LE edema. ROM intact. Strength 5/5 and equal bilaterally. LUE visibly swollen, soft, nontender to palpation. Vasc: Left hand cool to touch compared to right, normal cap refill. LUE fistula with well-healing surgical incision, palpable thrill appreciated. Skin: Normal color, no rashes or lesions Neuro: A&Ox3, CN grossly intact, normal speech, motor/sensory grossly intact and symmetric Psych: Mood appropriate to situation ED Treatment Course - LABORATORY CBC & Chemistry Diagram: 05/16/18 15:00 05/16/18 15:00 - RADIOLOGY Radiology Studies Ordered: Category Date Time Status DUPLEX VASCUL US-1 ARM [US] Stat Ultrasound 05/16/18 15:02 Ordered DUPLEX HEMODIALYSIS ACCESS [VASC] Stat Vascular 05/16/18 15:02 Ordered Medical Decision Making - Medical Decision Making 05/16/18 15:20 Wilian Manrique is a 63yo man with a PMH of HTN, HLD, IDDM, CKD s/p LUE fistula creation 2wks ago, Wilm's tumor (age 4) who was sent to the ED due to potassium 5.8 on recent labs as well as LUE swelling and cool hand following his surgery. - Spoke to Dr Bess. Feels that hyperkalemia is due to increased dose of losartan, recommending d/c losartan and start hydralazine. Recommending treating potassium as needed but would prefer to avoid dialysis at this time until fistula matures - Will recheck labs. CBC, CMP sent - EKG to eval for cardiac changes secondary to hyperkalemia - Pt has had LUE swelling and cool hand since his LUE fistula creation. Saw Dr Guillen yesterday, scheduled for ultrasound on Saturday. Will complete US while in ED. Fistula has palpable thrill, but concern for steal v thrombus 05/16/18 16:53 - labs reviewed. Potassium 5.3 today - Discussed with Dr Bess (spoke to Dr Carroll). Would like pt to d/c losartan , start hydralazine 25mg TID. - US of LUE completed, reviewed in ED. Vessels appear patent w/o. Large 3.7 x 2.5cm fluid collection in proximity to AVF w/o flow. Pending radiology report. 05/16/18 18:20 - Spoke to Dr Mckenzie to update him regarding changes in BP meds. He agrees with discontinuing losartan and starting hydralazine 25mg TID. - Will give 2wk prescription for hydralazine; Dr Mckenzie will be able to follow up with Mr Manrique within that time - Spoke to Dr Dinh (radiology) regarding US as report is not available. Reports a cystic/fluid filled structure in the proximal forearm, but all visualized vessels are patent. - Updated Mr Manrique, discussed home care, follow up, and return precautions. He agrees with the plan. Seen and discussed with Dr Carroll. Lizz Veronica PGY1 *DC/Admit/Observation/Transfer Diagnosis at time of Disposition: CKD (chronic kidney disease), Hyperkalemia - Discharge Dispostion Disposition: HOME Condition at time of disposition: Stable - Prescriptions Prescriptions: Hydralazine HCl 25 mg PO TID 15 Days #45 tablet - Referrals Referrals: Flex Mckenzie MD [Primary Care Provider] - Carmelo Bess MD [Staff Physician] - - Patient Instructions Printed Discharge Instructions: Renal (Kidney) Disease Diet -- For People Not on Dialysis Additional Instructions: Discharge Instructions: You were seen in the emergency department due to concerns for high potassium levels. You had your blood tests rechecked, and your potassium was 5.3. This is high but not dangerous. Your potassium level may be elevated due to your recently increased losartan prescription. It is recommended that you stop taking the losartan. You have been prescribed hydralazine, a different blood pressure medication, to start immediately. Your new prescription is 25mg every 8 hours. You have been given a 2 week prescription, and you will be able to get a refill from Dr Mckenzie. Both Dr Mckenzie and Dr Bess were spoken to regarding the medication change. You should contact both of them on Saturday to set up follow up appointments. Dr Guillen was also contacted regarding your arm swelling and the ultrasound that was completed in the ED. Seek immediate medical care if you have any chest pain, difficulty breathing, worsening arm swelling, numbness/tingling or weakness in your left hand, or you have any other medical emergency. - Post Discharge Activity
--- NOTE | 2018-05-16 15:48 | PDOC ---
Attending Attestation - HPI HPI: 05/16/18 16:19 The patient is a 63-year-old male with a past medical history significant for CKD, DM, HLD, HTN, hx of Wilms tumor s/p left nephrectomy and recent LUE fistula (placed 2 weeks ago) presents to the emergency department with abnormal lab result and left upper extremity swelling. The patient reports he was directed to the ER by Dr. Bess after lab result was significant for potassium of 5.8. The patient reports a recent increase in Losartan to 100mg, which was discontinued by Dr. Bess after the abnormal lab results. The patient reports hes been compliant with his renal diet and denies any recent intake to food with elevated potassium. The patient reports an additional concern of left upper extremity swelling. The patient reports the swelling presented following the fistula placement, with increased coolness to the fingers. The patient reports following up with Dr. Prabhakar yesterday and is scheduled for an ultrasound on Saturday. Denies fever, chills, chest pain or shortness of breath. The patient reports drinking 1.6 L of water daily. Allergies: Iodinated Contrast. Surgical history: Appendectomy,Nephrectomy - Physicial Exam PE: 05/16/18 16:23 GENERAL: The patient is in no acute distress. ENT: Ears normal, nares patent, oropharynx clear without exudates. Moist mucous membranes. NECK: Normal range of motion, supple, no nuchal rigidity LUNGS: Breath sounds equal, clear to auscultation bilaterally. No wheezes, and no crackles. HEART: Regular rate and rhythm, normal S1 and S2 without murmur, rub or gallop. ABDOMEN: Soft, nontender, normoactive bowel sounds. No guarding, no rebound. No masses palpable. EXTREMITIES: +Left upper extremity very edematous, fistula site clean, dry, no erythema or drainage. Positive thrill and bruit. NEUROLOGICAL: Cranial nerves II through XII grossly intact. Normal speech. No focal neurological deficits. SKIN: Warm, Dry, normal turgor, no rashes or lesions noted. - Medical Decision Making 05/16/18 16:20 Documentation prepared by Tiny Quevedo, acting as medical center manager for Tara Carroll MD/. 05/16/18 18:[address] Mckenzie case dsicussed with Dr. Mckenzie. 05/16/18 18:[address] prabhakar. 05/16/18 18:[address] Prabhakar. waiting for a reply. <Tiny Quevedo - Last Filed: 05/16/18 19:08> - Resident Resident Name: Lizz Veronica - ED Attending Attestation I have performed the following: I have examined & evaluated the patient, The case was reviewed & discussed with the resident, I agree w/resident's findings & plan, Exceptions are as noted - Medical Decision Making 63 yo M presenting for re evaluation of 1) hyperkalemia on outpatient labs 2) LUE swelling Pt is adherent to Low potassium diet Fistula placed 2 weeks ago He has noted increased swelling No fevers or chills 05/16/18 16:30 EKG - NSR rate of 91 bpm, axis nml, intervals nml, no st elevation or depression , no peaked t waves, no pathological q waves 05/16/18 16:45 Laboratory Tests 05/16/18 05/16/18 15:00 15:00 WBC 5.6 Hgb 12.4 Hct 38.1 Plt Count 226 Sodium 139 Potassium 5.3 H Chloride 110 H Carbon Dioxide 21 BUN 55 H Creatinine 4.7 H Random Glucose 75 Dr Bess aware of potassium Would recommend DISCONTINUING Losartan and starting Hydralazine 25mg TID Continue low potassium diet Follow up SATURDAY for blood pressure check Awaiting US report 05/16/18 18:38 US demonstrates cystic structure on top of the fistula Call placed to Dr Prabhakar <Tara Carroll - Last Filed: 05/17/18 15:38>
[2018-05-16 15:49] LABS: BASO % 1.8 % (0-2.0); EOS % 4.4 % (0-4.5); HEMATOCRIT 38.1 % (35.4-49); HEMOGLOBIN 12.4 GM/dL (11.7-16.9); LYMPH % 16.5 % (8-40); MCH 27.7 pg (25.7-33.7); MCHC 32.5 g/dl (32.0-35.9); MEAN CELL VOLUME 85.2 fl (80-96); MEAN PLT VOLUME 7.6 fl (7.5-11.1); MONO % 7.8 % (3.8-10.2); NEUT % 69.5 % (42.8-82.8); PLATELET COUNT 226 K/MM3 (134-434); RBC 4.47 M/mm3 (4.00-5.60); RDW 14.6 % (11.9-15.9); WHITE BLOOD COUNT 5.6 K/mm3 (4.0-10.0)
--- NOTE | 2018-05-16 15:58 | CONSULT ---
Consult Consult Specialty:: Nephrology Reason for Consultation:: hyperkalemia - History of Present Illness Chief Complaint: sent in for hyperkalemia History of Present Illness: Pt is a 63 year old male with pmhx of CKD and HTN who I sent to the ER for hyperkalemia. He denies chest pain or palpitations. He is awake and alert. He has history of ckd but is not yet on HD. He is on losartan which was recently increased to 100 mg. He denies fevers or chills. He denies hematuria or dysuria. - History Source History Provided By: Patient, Medical Record - Past Medical History Cardio/Vascular: Yes: HTN, Hyperlipdemia Renal/: Yes: Renal Inusuff, Other (wilms tumor) Musculoskeletal: Yes: Other (poorly healed right ankle fracture, +grade 1-2 wound plantar left hallux, +hallux limitus left) Endocrine: Yes: Diabetes Mellitus - Past Surgical History Past Surgical History: Yes: Appendectomy, AV Fistula/Graft, Nephrectomy - Alcohol/Substance Use Hx Alcohol Use: No - Smoking History Smoking history: Never smoked Have you smoked in the past 12 months: No Aproximately how many cigarettes per day: 0 - Social History ADL: Independent Home Medications - Allergies Allergies/Adverse Reactions: Allergies Allergy/AdvReac Type Severity Reaction Status Date / Time Iodinated Contrast- Oral and Allergy Intermediate Hives Verified 05/16/18 13:59 IV Dye - Home Medications Home Medications: Ambulatory Orders Aspirin [Ecotrin] 81 mg PO DAILY 09/03/15 Cyanocobalamin [Vitamin B12 -] 1,000 mcg PO DAILY 03/15/18 Insulin Sliding Scale [Novolog Vial Sliding Scale -] 1 vial SQ ACHS #100 units 03/20/18 Amlodipine Besylate [Norvasc -] 5 mg PO DAILY 04/30/18 Atorvastatin Ca [Lipitor] 20 mg PO DAILY 04/30/18 Fish Oil/Borage/Flax/Om3,6,9 1 [[place] 3-6-9 Complex Softgel] 1 each PO DAILY Insulin (Levemir) [Levemir Vial] 20 units SQ BID 04/30/18 Losartan Potassium 25 mg PO DAILY 05/01/18 Family Disease History - Family Disease History Family History: Denies Review of Systems - Review of Systems Constitutional: reports: No Symptoms Eyes: reports: No Symptoms HENT: reports: No Symptoms Neck: reports: No Symptoms Cardiovascular: reports: No Symptoms Respiratory: reports: No Symptoms Gastrointestinal: reports: No Symptoms Genitourinary: reports: No Symptoms Musculoskeletal: reports: No Symptoms Integumentary: reports: No Symptoms Neurological: reports: No Symptoms Endocrine: reports: No Symptoms Hematology/Lymphatic: reports: No Symptoms Physical Exam Vital Signs: Vital Signs Temperature 98.6 F 05/16/18 13:56 Pulse Rate 102 H 05/16/18 13:56 Respiratory Rate 19 05/16/18 13:56 Blood Pressure 151/75 05/16/18 13:56 O2 Sat by Pulse Oximetry (%) 100 05/16/18 13:56 Constitutional: Yes: Calm Eyes: Yes: Conjunctiva Clear HENT: Yes: Atraumatic Cardiovascular: Yes: S1, S2 Respiratory: Yes: CTA Bilaterally Gastrointestinal: Yes: Soft Musculoskeletal: Yes: WNL Extremities: Yes: Other (left arm edema) Edema: LUE: 1+ Neurological: Yes: Oriented Psychiatric: Yes: Oriented Problem List - Problems (1) Hyperkalemia Code(s): E87.5 - HYPERKALEMIA (2) CKD (chronic kidney disease) Code(s): N18.9 - CHRONIC KIDNEY DISEASE, UNSPECIFIED Assessment/Plan Impression 1. CKD 2. hyperkalemia 3. DM 4. chest pain 5. hyperlipidemia 6. HTN 7. hx of Wilms tumor, s/p left nephrectomy 8. left arm edema Plan - check bmp - recommend stopping losartan - renal diet - ultrasound of fistula - discussed with ER - check ecg Dr Bess
[2018-05-16 16:14] LABS: ALBUMIN 3.3 g/dl (3.4-5.0); ALK PHOS 144 U/L (45-117); ANION GAP 8 MMOL/L (8-16); BILIRUBIN,TOTAL 0.3 mg/dL (0.2-1); BLOOD UREA NITROGEN 55 mg/dL (7-18); CALCIUM 9.1 mg/dL (8.5-10.1); CHLORIDE 110 mmol/L (98-107); CO2 21 mmol/L (21-32); CREATININE 4.7 mg/dL (0.55-1.3); GLUCOSE,RANDOM 75 mg/dL (74-106); MAGNESIUM 2.6 mg/dL (1.8-2.4); PHOSPHOROUS 4.4 mg/dL (2.5-4.9); POTASSIUM 5.3 mmol/L (3.5-5.1); SGOT/AST 29 U/L (15-37); SGPT/ALT 24 U/L (13-61); SODIUM 139 mmol/L (136-145)
--- NOTE | 2018-05-19 10:59 | EKG ---
Test Reason : Blood Pressure : / mmHG Vent. Rate : 091 BPM Atrial Rate : 091 BPM P-R Int : 172 ms QRS Dur : 088 ms QT Int : 352 ms P-R-T Axes : 028 -01 027 degrees QTc Int : 432 ms NORMAL SINUS RHYTHM POSSIBLE ANTERIOR INFARCT (CITED ON OR BEFORE 16-MAR-2018) ABNORMAL ECG WHEN COMPARED WITH ECG OF 16-MAR-2018 14:03, NO SIGNIFICANT CHANGE WAS FOUND Confirmed by BRENDA WHITLOCK, EMPERATRIZ ([id number]) on 05/19/2018 10:59:02 AM Referred By: Confirmed By:EMPERATRIZ GUTIERREZ MD
== END 2018-05-16 19:12 | disposition home or self-care (01) ==
LOC: JER 13:43
DX: M25.561 Pain in right knee (principal); M25.562 Pain in left knee; G89.29 Other chronic pain; M79.674 Pain in right toe(s); M79.675 Pain in left toe(s)
CPT/HCPCS: 36415; 80053; 83735; 84100; 85025; 93005; 93010; 93971; 99282-25

== ENCOUNTER 2018-06-12 11:44 | Inpatient (IN) | payer OTHER ==
--- NOTE | 2018-06-12 12:26 | PDOC ---
Attending Attestation - Resident Resident Name: Dorothy Villar - ED Attending Attestation I have performed the following: I have examined & evaluated the patient, The case was reviewed & discussed with the resident, I agree w/resident's findings & plan, Exceptions are as noted
--- NOTE | 2018-06-12 12:40 | PDOC ---
History of Present Illness - General Chief Complaint: Revisit, Lab Variance Stated Complaint: SENT BY PCP Time Seen by Provider: 06/12/18 12:08 History Source: Patient Exam Limitations: No Limitations - History of Present Illness Initial Comments: 06/12/18 12:36 Pt is a 63yo M with PMH of DM, HTN, HLD, Wilms Tumor s/p L nephrectomy 59y ago, L AVF 5 weeks ago presenting to ED with abnormal lab values found at PMD office. Per pt, he had a routine visit yesterday and was told his cardiac enzymes were elevated (tests were performed a few weeks ago). Pt states that he has noticed shortness of breath with exertion since the AVF formation. Endorses chills. He denies chest pain, cough, fevers, leg swelling, pleuritic chest pain , syncope, palpitations, abdominal pain, n/v/d, back pain. PMD: Magaly Neph: Maria Alejandra Vasc: Wilmer PMH: see hpi PSH: see hpi Meds: see med rec Allergies: contrast Past History - Past Medical History Allergies/Adverse Reactions: Allergies Allergy/AdvReac Type Severity Reaction Status Date / Time Iodinated Contrast- Oral and Allergy Intermediate Hives Verified 05/23/18 09:26 IV Dye Home Medications: Ambulatory Orders Aspirin [Ecotrin] 81 mg PO DAILY 09/03/15 Cyanocobalamin [Vitamin B12 -] 1,000 mcg PO DAILY 03/15/18 Atorvastatin Ca [Lipitor] 20 mg PO DAILY 04/30/18 Fish Oil/Borage/Flax/Om3,6,9 1 [[place] 3-6-9 Complex Softgel] 1 each PO DAILY Insulin (Levemir) [Levemir Vial] 20 units SQ BID 04/30/18 Amlodipine Besylate [Norvasc -] 10 mg PO DAILY 05/23/18 Hydralazine HCl 10 mg PO TID 05/23/18 Insulin Sliding Scale [Novolog Vial Sliding Scale -] 1 vial SQ ASDIR PRN Anemia: No Asthma: No Cancer: No Cardiac Disorders: No CVA: No COPD: No CHF: No Dementia: No Diabetes: Yes GI Disorders: No Disorders: No HTN: Yes Hypercholesterolemia: Yes Liver Disease: No Seizures: No Thyroid Disease: No - Surgical History Abdominal Surgery: Yes Appendectomy: Yes Cardiac Surgery: No Cholecystectomy: No Lung Surgery: No Neurologic Surgery: No Orthopedic Surgery: Yes (rotator cuff right shoulder) - Immunization History Immunization Up to Date: Yes - Suicide/Smoking/Psychosocial Hx Smoking History: Never smoked Have you smoked in the past 12 months: No Number of Cigarettes Smoked Daily: 0 Hx Alcohol Use: No Drug/Substance Use Hx: No Substance Use Type: None Hx Substance Use Treatment: No Review of Systems - Review of Systems Constitutional: No: Chills, Fever, Night Sweats HEENTM: No: Symptoms Reported Respiratory: Yes: SOB with Exertion. No: Cough, SOB at Rest, Wheezing, Hemoptysis Cardiac (ROS): No: Chest Pain, Edema, Lightheadedness, Palpitations, Syncope, Chest Tightness ABD/GI: No: Constipated, Diarrhea, Nausea, Vomiting, Abdominal cramping : No: Symptoms Reported Musculoskeletal: No: Symptoms Reported Integumentary: No: Symptoms Reported Neurological: No: Headache, Numbness, Tingling, Tremors *Physical Exam - Vital Signs Last Vital Signs Temp Pulse Resp BP Pulse Ox 98.1 F 111 H 20 188/73 H 98 06/12/18 11:46 06/12/18 11:46 06/12/18 11:46 06/12/18 11:46 06/12/18 11:46 - Physical Exam General Appearance: Yes: Appropriately Dressed, Obese. No: Apparent Distress HEENT: positive: EOMI, PRAKASH, Normal ENT Inspection Neck: positive: Trachea midline, Supple. negative: Lymphadenopathy (R), Lymphadenopathy (L) Respiratory/Chest: positive: Lungs Clear, Normal Breath Sounds. negative: Crackles, Rales, Wheezing Cardiovascular: positive: Regular Rhythm, S1, S2, Tachycardia. negative: Edema , JVD, Murmur Vascular Pulses: Carotid (R): 2+, Carotid (L): 2+, Dorsalis-Pedis (R): 2+, Doralis-Pedis (L): 2+ Gastrointestinal/Abdominal: positive: Normal Bowel Sounds, Soft. negative: Guarding, Rebound Musculoskeletal: negative: CVA Tenderness Extremity: positive: Normal Capillary Refill, Pedal Edema (1+ edema in feet up to ankles bilaterally) Integumentary: positive: Normal Color, Dry, Warm, Other (ulceration on plantar aspect of L great toe. no exuates, not warm, no erythema) Neurologic: positive: information technology teacher II-XII NML intact, Fully Oriented, Alert, Normal Response, Motor Strength 5/5, Abnormal Cranial NS ED Treatment Course - LABORATORY CBC & Chemistry Diagram: 06/12/18 12:34 06/12/18 12:34 - RADIOLOGY Radiology Studies Ordered: Category Date Time Status CHEST PA & LAT [RAD] Stat Radiology 06/12/18 12:21 Ordered Medical Decision Making - Medical Decision Making 06/12/18 12:40 Pt is a 63yo M with PMH of DM, HTN, HLD, Wilms Tumor s/p L nephrectomy 59y ago, L AVF 5 weeks ago presenting to ED with abnormal lab values found at PMD office. Per pt, he had a routine visit yesterday and was told his cardiac enzymes were elevated. Pt states that he has noticed shortness of breath with exertion for the past couple of weeks. Endorses chills. He denies chest pain, cough, fevers, leg swelling, pleuritic chest pain, syncope, palpitations, abdominal pain, n/v/d, back pain. Vitals: tachy, slight hypertension PE: L arm swelling s/p AVF. Palpable thrill otherwise normal exam Ddx includes but not limited to acs, pe, ptx, pna, sepsis, arrhythmia, chf, medication interaction, electrolyte/metabolic abnormality, malignancy, dissection -cbc, cmp, dimer -ekg, cxr low suspicion for sepsis from ulcer given superficiality and it not appearing infected. EKG: sinus tachycardia at 102 no nat or depressions. trop 0.47 and dimer elevated. Pt is allergic to contrast and only has one kidney. Cr has been at baseline. last trop in february was normal. -ASA Called Dr. Ruby and Dr Mckenzie. Dr. Mckenzie stated that pt was sent over for diabetic ulcer. Per Dr. Ruby given normal CK index, does not think trop is elevated due to ischemia. Pt could be having PE. Will give heparin. Pt admitted tele for elevated trop and ulcer. consult to dr. Alfonso *DC/Admit/Observation/Transfer Diagnosis at time of Disposition: NSTEMI (non-ST elevated myocardial infarction), D-dimer, elevated, Diabetic foot ulcer - Discharge Dispostion Decision to Admit order: Yes - Referrals - Patient Instructions - Post Discharge Activity
[2018-06-12 12:50] LABS: EOS % 0.3 % (0-4.5); HEMATOCRIT 34.1 % (35.4-49); HEMOGLOBIN 11.1 GM/dL (11.7-16.9); LYMPH % 8.3 % (8-40); MCH 27.7 pg (25.7-33.7); MCHC 32.7 g/dl (32.0-35.9); MEAN CELL VOLUME 84.7 fl (80-96); MEAN PLT VOLUME 7.8 fl (7.5-11.1); NEUT % 80.4 % (42.8-82.8); PLATELET COUNT 229 K/MM3 (134-434); RBC 4.02 M/mm3 (4.00-5.60); WHITE BLOOD COUNT 8.4 K/mm3 (4.0-10.0)
[2018-06-12 13:18] LABS: ALBUMIN 3.2 g/dl (3.4-5.0); ALK PHOS 143 U/L (45-117); ANION GAP 8 MMOL/L (8-16); BILIRUBIN,TOTAL 0.5 mg/dL (0.2-1); BLOOD UREA NITROGEN 48 mg/dL (7-18); CALCIUM 8.2 mg/dL (8.5-10.1); CHLORIDE 111 mmol/L (98-107); CO2 22 mmol/L (21-32); CREATININE 4.5 mg/dL (0.55-1.3); GLUCOSE,RANDOM 51 mg/dL (74-106); MAGNESIUM 2.2 mg/dL (1.8-2.4); POTASSIUM 4.8 mmol/L (3.5-5.1); SGOT/AST 34 U/L (15-37); SGPT/ALT 20 U/L (13-61); SODIUM 141 mmol/L (136-145); TOT PROT 6.7 g/dl (6.4-8.2)
[2018-06-12] MEDS ORDERED: ASPIRIN 325 MG TABLET PO ONE (13:29)
[2018-06-12] MEDS ORDERED: ASPIRIN 325 MG TABLET ONE (13:40)
--- NOTE | 2018-06-12 15:08 | PDOC ---
Documentation entered by Shannon Mitchell SCRIBE, acting as scribe for Ronald Joyner MD. Ronald Joyner MD: This documentation has been prepared by the Stephen fischer Adrianna, SCRIBE, under my direction and personally reviewed by me in its entirety. I confirm that the documentation accurately reflects all work, treatment, procedures, and medical decision making performed by me. Attending Attestation - Resident Resident Name: AureaDorothy - ED Attending Attestation I have performed the following: I have examined & evaluated the patient, The case was reviewed & discussed with the resident, I agree w/resident's findings & plan, Exceptions are as noted - HPI HPI: The patient is a 63 year old male, with a significant PMH of CKD, DM, HLD, HTN, Wilms tumor (s/p nephrectomy), and LUE fistula (placed 7 weeks ago), who presents to the emergency department today for abnormal outpt labs. Patient was seen by Dr. Mckenzie yesterday for a routine visit, where he was found to have elevated cardiac enzymes. He also endorses dyspnea on exertion, typically when walking a few blocks, for the past 2 weeks. Patient was seen in the ED 5 weeks ago for hyperkalemia on outpatient labs, where Dr. Bess advised to discontinue his Losartan and placed him on Hydralazine 25mg. He endorses chills at this time. The patient denies chest pain, headache and dizziness. Denies fever, nausea, vomit, diarrhea and constipation. Denies dysuria, frequency, urgency and hematuria. Allergies: Iodinated contrast- oral and IV dye Past surgical history: recent LUE fistula (7 weeks ago), left nephrectomy Social history: No reported PCP: Dr. Flex Mckenzie Lifestyle Director: Dr. Carmelo Bess Vascular: Dr. Uri Guillen - Physicial Exam PE: 06/12/18 15:04 agree with resident exam - Medical Decision Making 15:55pm- resident spoke with Dr. Mckenzie concerning patient's care EXAM#: TYPE/EXAM: RESULT: [id number] RAD/CHEST PA LAT Chest: Shortness of breath 2 views of the chest have been submitted. Since the prior study of 08/29/2015 again noted is a scoliosis with convexity to the right, azygos lobe and fissure , previous right shoulder surgery, large heart, prominent knob and prominent shannon. An acute chest process is not seen. The soft tissues are excessive. Correlation recommended. Reported By: Jakub Galarza MD 06/12/18 13:17 EXAM#: TYPE/EXAM: RESULT: [id number] US/DUPLEX VASCUL US-2LEGS Lower extremity edema, right more than Impression: There is no evidence of deep venous thromboses in both lower extremities. Reported By: Campbell Gay MD 06/12/18 15:27 EXAM#: TYPE/EXAM: RESULT: [id number] US/DUPLEX VASCUL US-1 ARM Left arm Doppler venous ultrasound Clinical information evaluate for DVT Impression: No left arm DVT is identified. A complex nonspecific 4 x 3 x 1.7 cm fluid structure is noted along the left proximal forearm ventrally possibly representing a hematoma. Reported By: Jesus Dinh MD 06/12/18 16:21 EXAM#: TYPE/EXAM: RESULT: [id number] RAD/TOE(S) LEFT Left toes: Ulcer. Pain. 3 views of the left toes reveal soft tissue swelling with a possible soft tissue ulcer by the inferior aspect of the great toe. There are arthritic changes noted. Destructive process is not seen. There is no sign of fracture or subluxation and no sign of blastic or lytic changes. If one is concerned about osteomyelitis, three-phase bone scan or MR may be of help. Reported By: Jakub Galarza MD 06/12/18 17:06 06/12/18 17:43 06/12/18 13:37 63yo M hx MMP including ESRD prsents to the ED with elevated cardiac enzymes. Other than VAZQUEZ, pt denies any other sxs. Previous cardiac enzymes in our EMR negative or very mildly elevated (0.06) Pt is tachycardic and hypertensive on arrival to the ED Trop here is 0.47, EKG is non ischemic DDx includes ACS vs PE vs demand ischemia from underlying process such as infection Dimer is 1100 Pt has IV contrast allergy In light of recent surgery for LUE fistula placement, plan to check US LE and LUE for DVT Will reassess and dispo accordingly 06/12/18 16:37 US b/l LE and LUE negative for DVT Due to dimer 1100, VAZQUEZ and trop leak to 0.47, will treat empirically for PE with heparin (pt can not get VQ scan immediately) Case discussed with Dr. Ruby who has evaluated pt, in agreement with plan Pt to be admitted at this time 06/12/18 18:17 Heart Score/ECG Review #1 06/12/18 15:08 Twelve-lead EKG was performed and reviewed by me. Sinus tachycardia, rate 102. Normal axis. No ST elevations. No T-wave inversions.
[2018-06-12] MEDS ORDERED: HEPARIN INFUSION - 25,000 UNITS/500 ML INFUS.BAG IVPB ONE (16:43)
--- NOTE | 2018-06-12 16:43 | CON.CARD ---
Consult Consult Specialty:: Cardiology Referred by:: Medicine Reason for Consultation:: elevated troponin - History of Present Illness Chief Complaint: short of breath History of Present Illness: 63M h/o CKD, DM, HLD, HTN, wilm's tumor s/p nephrectomy and recent LUE fistula placement 5 weeks [address] from Dr[address] Mckenzie's office for concern for foot infectio, abnormal labs. No chest pain, palps, dizziness. Has history of dyspnea on exertion that was worse a few weeks ago, he was briefly on metoprolol and sob improved after stopping it. He went to his scheduled office visit today without symptoms, no dyspnea today. In the ER trop 0.47. Given full dose aspirin. - Past Medical History Cardio/Vascular: Yes: HTN, Hyperlipdemia Renal/: Yes: Renal Inusuff, Other (wilms tumor) Musculoskeletal: Yes: Other (poorly healed right ankle fracture, +grade 1-2 wound plantar left hallux, +hallux limitus left) Endocrine: Yes: Diabetes Mellitus - Past Surgical History Past Surgical History: Yes: Appendectomy, AV Fistula/Graft, Nephrectomy - Alcohol/Substance Use Hx Alcohol Use: No - Smoking History Smoking history: Never smoked Have you smoked in the past 12 months: No Aproximately how many cigarettes per day: 0 - Social History ADL: Independent Home Medications - Allergies Allergies/Adverse Reactions: Allergies Allergy/AdvReac Type Severity Reaction Status Date / Time Iodinated Contrast- Oral and Allergy Intermediate Hives Verified 05/23/18 09:26 IV Dye - Home Medications Home Medications: Ambulatory Orders Aspirin [Ecotrin] 81 mg PO DAILY 09/03/15 Cyanocobalamin [Vitamin B12 -] 1,000 mcg PO DAILY 03/15/18 Atorvastatin Ca [Lipitor] 20 mg PO DAILY 04/30/18 Fish Oil/Borage/Flax/Om3,6,9 1 [[place] 3-6-9 Complex Softgel] 1 each PO DAILY Insulin (Levemir) [Levemir Vial] 20 units SQ BID 04/30/18 Amlodipine Besylate [Norvasc -] 10 mg PO DAILY 05/23/18 Hydralazine HCl 10 mg PO TID 05/23/18 Insulin Sliding Scale [Novolog Vial Sliding Scale -] 1 vial SQ ASDIR PRN Family Disease History - Family Disease History Family History: Unremarkable Review of Systems - Review of Systems Constitutional: reports: No Symptoms Eyes: reports: No Symptoms HENT: reports: No Symptoms Neck: reports: No Symptoms Cardiovascular: reports: No Symptoms Respiratory: reports: No Symptoms Gastrointestinal: reports: No Symptoms Genitourinary: reports: No Symptoms Musculoskeletal: reports: No Symptoms Integumentary: reports: No Symptoms Neurological: reports: No Symptoms Endocrine: reports: No Symptoms Hematology/Lymphatic: reports: No Symptoms Psychiatric: reports: No Symptoms Vital Signs: Vital Signs Temperature 98.4 F 06/12/18 16:17 Pulse Rate 96 H 06/12/18 16:17 Respiratory Rate 16 06/12/18 16:17 Blood Pressure 143/79 06/12/18 16:17 O2 Sat by Pulse Oximetry (%) 98 06/12/18 16:17 Constitutional: Yes: Well Nourished, No Distress Eyes: Yes: Conjunctiva Clear, EOM Intact HENT: Yes: Atraumatic, Normocephalic Neck: Yes: Supple, Trachea Midline Respiratory: Yes: Regular, CTA Bilaterally Gastrointestinal: Yes: Normal Bowel Sounds, Soft Cardiovascular: Yes: Regular Rate and Rhythm JVD: No Carotid Bruit: No PMI: Non-Displaced Heart Sounds: Yes: S1, S2 Murmur: No: Systolic Murmur Musculoskeletal: No: Back Pain Extremities: No: Cold Edema: Yes Edema: LLE: 1+, RLE: 1+ Peripheral Pulses WNL: No Peripheral Pulses: 1+ Left Doralis Pedis, 1+ Right Dorsalis Pedis Integumentary: No: Jaundice Neurological: Yes: Alert, Oriented Psychiatric: No: Agitated - Other Data Labs, Other Data: CBC, BMP 06/12/18 12:34 06/12/18 12:34 Troponin, BNP 06/12/18 12:34 Troponin I 0.47 H Troponin, BNP 06/12/18 12:34 Troponin I 0.47 H Assessment/Plan mibi 04/2018 small area of mild ischemia anterior wall, EF 30% lower ext venous doppler: no DVT EKG: sinus tachy, no ischemic changes tele; sinus tach elevated troponin, abnormal stress test - trop 0.47, EKG no ischemic changes, history less consistent with ACS - CKMB elevated however in setting of elevated CK with nl index - recent mibi 04/2018 showed EF 30% and small area of mild ischemia - asymptomatic currently, however with elevated trop as above. angiogram deferred given ESRD not yet on HD and contrast allergy - had dyspnea on exertion but per patient this is improving, CXR with no congestion - trend troponin - continue aspirin, statin - echo ordered - concern for foot infection - may be 2/2 demand ischemia - d/w ED team - concern for PE given complaint of dyspnea on exertion, tachycardia, elevated trop. on heparin gtt, unable to do CTA chest due to contrast allergy and ESRD, not on HD at this point, planning for V/Q scan cardiomyopathy - EF 30% on mibi - echo ordered - no bb given history of worsening dyspnea and wheezing with metoprolol, no MERRILL/ ARB given CKD L toe ulcer - manage per podiatry, vascular HTN - stable, continue home meds DM - manage per primary, endo CKD - nephrology consulted - recent AV fistula placement HLD - cont statin
[2018-06-12] MEDS: HEPARIN - 25,000 UNIT in SODIUM CHLORIDE 495 ML IV SCH (16:45)
[2018-06-12] MEDS ORDERED: INSULIN SLIDING SCALE (NOVOLOG) 1 VIAL SQ PRN (20:53)
--- NOTE | 2018-06-12 21:20 | HP ---
CHIEF COMPLAINT: found to have an elevated troponin with blood work that was checked 3 weeks ago in the outpatient setting, was referred to ER for concern of left big toe open wound/infection as patient reported chills PCP:Dr. Glaser HISTORY OF PRESENT ILLNESS: 63 year old male with history of chronic kidney disease, diabetes mellitus, hyperlipidemia, hypertension, Wilm's tumor s/p left nephrectomy and recent LUE fistula placement 5 weeks ago who presented from Dr. Mckenzie's office for concern for left big toe open wound/infection and an elevated troponin which was checked in the outpatient setting. He denied any symptoms of chest pain, palpitations, or dizziness. He reported he has history of dyspnea on exertion that was worse a few weeks ago when he briefly was on metoprolol and sob improved after he stopped it. He went to his scheduled office visit today without any symptoms of shortness of breath or chest pain. He was referred to the ER for further evaluation. In the ER he was found to have an elevated troponin of 0.47. He was given full dose aspirin. He was seen by Cardiology and as per evaluation does not appear to be a NSTEMI and more consistent with demand ischemia. He was found to have hypoxia and tachycardia. He had an elevated D-Dimer of 1193. Due to chronic renal insufficiency(creatinine 4.5) and IV contrast dye allergy a CT angiogram of chest could not be performed. He was started on a continuous IV heparin gtt for high suspicion of acute pulmonary embolism in setting of a signific He is pending a VQ scan to confirm diagnosis. Recent Travel:denies PAST MEDICAL HISTORY:as above PAST SURGICAL HISTORY:appendectomy, left nephrectomy, LUE fistula 5 weeks ago Social History: Smoking:denies Alcohol:denies Drugs: denies Family History: unremarkable Allergies Iodinated Contrast- Oral and IV Dye Allergy (Intermediate, Verified 05/23/18 09: 26) Hives HOME MEDICATIONS: Home Medications Medication Instructions Recorded Aspirin [Ecotrin] 81 mg PO DAILY 09/03/15 Cyanocobalamin [Vitamin B12 -] 1,000 mcg PO DAILY 03/15/18 Atorvastatin Ca [Lipitor] 20 mg PO DAILY 04/30/18 Fish Oil/Borage/Flax/Om3,6,9 1 1 each PO DAILY 04/30/18 [[place] 3-6-9 Complex Softgel] Insulin (Levemir) [Levemir Vial] 20 units SQ BID 04/30/18 Amlodipine Besylate [Norvasc -] 10 mg PO DAILY 05/23/18 Hydralazine HCl 10 mg PO TID 05/23/18 Insulin Sliding Scale [Novolog 1 vial SQ ASDIR PRN 06/12/18 Vial Sliding Scale -] REVIEW OF SYSTEMS CONSTITUTIONAL: Absent: fever, chills, diaphoresis, generalized weakness, malaise, loss of appetite, weight change HEENT: Absent: rhinorrhea, nasal congestion, throat pain, throat swelling, difficulty swallowing, mouth swelling, ear pain, eye pain, visual changes CARDIOVASCULAR: Absent: chest pain, syncope, palpitations, irregular heart rate, lightheadedness , peripheral edema RESPIRATORY: Absent: cough, shortness of breath, dyspnea with exertion, orthopnea, wheezing, stridor, hemoptysis GASTROINTESTINAL: Absent: abdominal pain, abdominal distension, nausea, vomiting, diarrhea, constipation, melena, hematochezia GENITOURINARY: Absent: dysuria, frequency, urgency, hesitancy, hematuria, flank pain, genital pain MUSCULOSKELETAL: Absent: myalgia, arthralgia, joint swelling, back pain, neck pain SKIN: Absent: rash, itching, pallor, left big toe open wound HEMATOLOGIC/IMMUNOLOGIC: Absent: easy bleeding, easy bruising, lymphadenopathy, frequent infections ENDOCRINE: Absent: unexplained weight gain, unexplained weight loss, heat intolerance, cold intolerance NEUROLOGIC: Absent: headache, focal weakness or paresthesias, dizziness, unsteady gait, seizure, mental status changes, bladder or bowel incontinence PSYCHIATRIC: Absent: anxiety, depression, suicidal or homicidal ideation, hallucinations. PHYSICAL EXAMINATION Vital Signs - 24 hr 06/12/18 06/12/18 06/12/18 11:46 13:46 16:17 Temperature 98.1 F 98.0 F 98.4 F Pulse Rate 111 H Pulse Rate [ 103 H 96 H Left Apical] Respiratory 20 16 16 Rate Blood Pressure 188/73 H Blood Pressure 120/83 143/79 [Left Arm] O2 Sat by Pulse 98 98 98 Oximetry (%) GENERAL: awake, alert, and fully oriented, no acute distress HEAD: normal with no signs of trauma EYES: pupils equal, round and reactive to light, extraocular movements intact EARS, NOSE, THROAT: ears normal, nares patent, oropharynx clear without exudates NECK: normal range of motion no JVD LUNGS: breath sounds equal clear to auscultation bilaterally no wheezes and no crackles no use of accessory muscles HEART: regular and tachycardic, normal S1 and S2 without murmur ABDOMEN: soft, nontender, not distended, normoactive bowel sounds MUSCULOSKELETAL: normal range of motion at all joints UPPER EXTREMITIES: 2+ pulses, warm well-perfused no cyanosis no clubbing no peripheral edema LOWER EXTREMITIES: 2+ pulses left big toe with open wound NEUROLOGICAL: normal speech normal gait PSYCHIATRIC: cooperative good eye contact appropriate mood and affect SKIN: warm, dry,left big toe open wound no active purulence, odor or erythema Laboratory Results - last 24 hr 06/12/18 06/12/18 06/12/18 12:34 12:34 12:34 WBC 8.4 RBC 4.02 Hgb 11.1 L Hct 34.1 L MCV 84.7 MCH 27.7 MCHC 32.7 RDW 15.0 Plt Count 229 MPV 7.8 Absolute Neuts (auto) 6.8 Neutrophils % 80.4 Lymphocytes % 8.3 D Monocytes % 10.0 Eosinophils % 0.3 D Basophils % 1.0 Nucleated RBC % 0 D-Dimer Sodium 141 Potassium 4.8 Chloride 111 H Carbon Dioxide 22 Anion Gap 8 BUN 48 H Creatinine 4.5 H Creat Clearance w eGFR 13.30 POC Glucometer Random Glucose 51 L Calcium 8.2 L Magnesium 2.2 Total Bilirubin 0.5 AST 34 ALT 20 Alkaline Phosphatase 143 H Creatine Kinase 466 H Creatine Kinase Index 1.7 CK-MB (CK-2) 8.2 H Troponin I 0.47 H Total Protein 6.7 Albumin 3.2 L 06/12/18 06/12/18 06/12/18 12:56 17:05 19:03 WBC RBC Hgb Hct MCV MCH MCHC RDW Plt Count MPV Absolute Neuts (auto) Neutrophils % Lymphocytes % Monocytes % Eosinophils % Basophils % Nucleated RBC % D-Dimer 1193 H Sodium Potassium Chloride Carbon Dioxide Anion Gap BUN Creatinine Creat Clearance w eGFR POC Glucometer 71 Random Glucose Calcium Magnesium Total Bilirubin AST ALT Alkaline Phosphatase Creatine Kinase 308 Creatine Kinase Index 2.3 CK-MB (CK-2) 7.1 H Troponin I 0.65 H* Total Protein Albumin ASSESSMENT/PLAN: 63 year old male with history of cardiomyopathy with EF 30%,chronic kidney disease, Wilm's tumor s/p left nephrectomy, diabetes mellitus, hyperlipidemia, hypertension, and recent LUE fistula placement 5 weeks ago who presented from PCP office for concern for left big toe open wound/infection and with an elevated troponin which was checked a few weeks ago as per patient in the outpatient setting. In the ER he was found again to have an elevated troponin of 0.47. He was given full dose aspirin. He was seen by Cardiology and as per evaluation does not appear to be a NSTEMI. He was found to have hypoxia and tachycardia. He had an elevated D-Dimer of 1193. Due to chronic renal insufficiency(creatinine 1.7) and IV contrast dye allergy a CT angiogram of chest could not be performed. He was started on a continuous IV heparin gtt for high suspicion of acute pulmonary embolism in setting of a significantly elevated D-Dimer and troponin. He was admitted for further medical, cardiac and pulmonary evaluation. ?Acute Pulmonary Embolism Elevated D- Dimer(1193) and troponin(0.47). Unable to get CT angiogram of chest due to chronic renal disease and left nephrectomy(ESRD- had recently LUE fistula placed). Due to high suspicion of acute PE he was started on a continuous IV heparin gtt. Pending VQ scan to confirm diagnosis. Echocardiogram also pending. Pulmomary consulted- Dr. Mayen Diabetic Left Big Toe Open Wound/Infection R/O Osteomylitis Currently afebrile, no leukocytosis, reported chills. Venous doppler with no DVT. Toe XR with no acute findings. Wound care consulted- Dr. Colby. Vascular consulted- Dr. Uri Guillen Infectious Diseases consulted - Dr. Costello Elevated Troponin Denies active anginal symptoms. Seen by Cardiology. Recent mibi 04/2018 showed EF 30% and small area of mild ischemia.EKG with no acute findings. Likely demand mediated ischemia in setting of acute on chronic renal failure, ? left big toes infection and ?acute PE. Continue to trend troponins. Echocardiogram pending to exclude wall motion abnormalities. Continue with aspirin and statin therapy. Cardiomyopathy EF 30%. He is not on beta betty given history of worsening dyspnea and wheezing with metoprolol. No MERRILL/ARB given CKD Echocardiogram pending. Cardiology following. Diabetes Mellitus Accucheks before meals and at bedtime, Continue with levemir and novolin w/ sliding scale. Hyperlipidemia Continue with statin therapy. Hypertension Uncontrolled. Continue to monitor closely. Continue with amlodipine 10mg daily and hydralazine 10mg TID. Acute on Chronic Renal Insufficiency/ History of Left Nephrectomy(had recent LUE fistula placed) Creatinine 4.5 Continue to monitor closely. Nephrology consulted- Dr. Bess. TESSY PONCE diet Visit type - Emergency Visit Emergency Visit: No - New Patient This patient is new to me today: Yes Date on this admission: 06/13/18 - Critical Care Critical Care patient: No
[2018-06-12] MEDS: hydrALAZINE HCL 10 MG TABLET PO SCH (23:40)
[2018-06-12] MEDS: INSULIN (LEVEMIR) 100 UNITS/ML UNITS SQ SCH (23:40)
[2018-06-13] LABS: INR 1.14 (0.83-1.09); PROTHROMBIN TIME (PATIENT) 13.5 SEC (9.7-13.0)
[2018-06-13 00:02] LABS: ACTIVATED PTT 46.6 SECONDS (25.2-36.5)
[2018-06-13] MEDS: HEPARIN - 25,000 UNIT in SODIUM CHLORIDE 495 ML IV SCH (00:43)
[2018-06-13] MEDS: INSULIN (LEVEMIR) 100 UNITS/ML UNITS SQ SCH ×2 (06:49→22:52)
[2018-06-13] MEDS: hydrALAZINE HCL 10 MG TABLET PO SCH ×2 (06:49→16:49)
[2018-06-13] MEDS: INSULIN SLIDING SCALE (NOVOLOG) 1 VIAL SQ SCH ×4 (06:49→22:53)
[2018-06-13 06:50] LABS: HEMATOCRIT 30.8 % (35.4-49); HEMOGLOBIN 10.3 GM/dL (11.7-16.9); MCHC 33.5 g/dl (32.0-35.9); MEAN CELL VOLUME 83.7 fl (80-96); MEAN PLT VOLUME 7.6 fl (7.5-11.1); PLATELET COUNT 194 K/MM3 (134-434); RBC 3.68 M/mm3 (4.00-5.60); WHITE BLOOD COUNT 7.4 K/mm3 (4.0-10.0)
[2018-06-13 07:20] LABS: ALBUMIN 2.7 g/dl (3.4-5.0); ALK PHOS 120 U/L (45-117); ANION GAP 8 MMOL/L (8-16); BILIRUBIN,TOTAL 0.5 mg/dL (0.2-1); BLOOD UREA NITROGEN 52 mg/dL (7-18); CALCIUM 8.1 mg/dL (8.5-10.1); CHLORIDE 109 mmol/L (98-107); CO2 22 mmol/L (21-32); CREATININE 4.6 mg/dL (0.55-1.3); GLUCOSE,RANDOM 150 mg/dL (74-106); MAGNESIUM 2.2 mg/dL (1.8-2.4); PHOSPHOROUS 4.3 mg/dL (2.5-4.9); POTASSIUM 4.6 mmol/L (3.5-5.1); SGOT/AST 23 U/L (15-37); SGPT/ALT 18 U/L (13-61); SODIUM 139 mmol/L (136-145)
--- NOTE | 2018-06-13 07:31 | EKG ---
Test Reason : Blood Pressure : / mmHG Vent. Rate : 102 BPM Atrial Rate : 102 BPM P-R Int : 170 ms QRS Dur : 092 ms QT Int : 334 ms P-R-T Axes : 055 035 043 degrees QTc Int : 435 ms SINUS TACHYCARDIA POSSIBLE LEFT ATRIAL ENLARGEMENT BORDERLINE ECG WHEN COMPARED WITH ECG OF 16-MAY-2018 15:46, NO SIGNIFICANT CHANGE WAS FOUND Confirmed by DAYRON GIRARD MD ([id number]) on 06/12/2018 4:18:09 PM Also confirmed by DAYRON GIRARD MD ([id number]), magazine editor JONATHAN MATT ([id number]) on 06/13/2018 7:31:33 AM Referred By: Confirmed By:DAYRON GIRARD MD
--- NOTE | 2018-06-13 09:39 | PN ---
Progress Note, Physician Chief Complaint: seen and examined on tele Denies CP or SOB at this time. TELE: sinus tach - Current Medication List Current Medications: Active Medications Amlodipine Besylate (Norvasc -) 10 mg PO DAILY [facility] Aspirin (Ecotrin -) 81 mg PO DAILY [facility] Atorvastatin Calcium (Lipitor -) 20 mg PO HS [facility] Cyanocobalamin (Vitamin B12 -) 1,000 mcg PO DAILY [facility] Hydralazine HCl (Apresoline -) 10 mg PO TID [facility] Last Admin: 06/13/18 06:49 Dose: 10 mg Heparin Sodium (Porcine) 25, (000 unit/ Sodium Chloride) 500 mls @ 20 mls/hr IV TITR [facility]; Protocol Last Admin: 06/13/18 00:43 Dose: 1,100 unit/hr, 22 mls/hr Insulin Aspart (Novolog Vial Sliding Scale -) 1 vial SQ ACHS [facility]; Protocol Last Admin: 06/13/18 06:49 Dose: Not Given Insulin Detemir (Levemir Vial) 20 units SQ BID@0700,2200 [facility] Last Admin: 06/13/18 06:49 Dose: 20 units - Objective Vital Signs: Vital Signs Temperature 98.1 F 06/13/18 06:00 Pulse Rate 98 H 06/13/18 06:00 Respiratory Rate 20 06/13/18 06:00 Blood Pressure 137/77 06/13/18 06:00 O2 Sat by Pulse Oximetry (%) 96 06/12/18 22:30 Constitutional: Yes: No Distress Cardiovascular: Yes: Regular Rate and Rhythm Respiratory: Yes: CTA Bilaterally Gastrointestinal: Yes: Soft, Abdomen, Obese Edema: Yes Edema: LLE: 2+, RLE: 2+ Neurological: Yes: Alert, Oriented Labs: CBC, BMP 06/13/18 05:30 06/13/18 05:30 INR, PTT INR 1.14 (0.83-1.09) H 06/12/18 23:30 Laboratory Tests 06/12/18 06/12/18 06/13/18 12:56 19:03 01:10 WBC Hgb Plt Count PTT (Actin FS) D-Dimer 1193 H Sodium Potassium BUN Creatinine Troponin I 0.65 H* < 0.02 06/13/18 06/13/18 06/13/18 05:30 05:30 05:30 WBC 7.4 Hgb 10.3 L Plt Count 194 PTT (Actin FS) 59.7 H D-Dimer Sodium 139 Potassium 4.6 BUN 52 H Creatinine 4.6 H Troponin I 0.43 H - ....Imaging EKG: Image Reviewed Assessment/Plan 1. Elevated troponin, abnormal stress test: - trop 0.47, EKG no ischemic changes, history less consistent with ACS - CKMB elevated however in setting of elevated CK with nl index - recent mibi 04/2018 showed EF 30% and small area of mild ischemia. Plan to review stress test today. - asymptomatic currently, however with elevated trop as above. angiogram deferred given ESRD not yet on HD and contrast allergy - had dyspnea on exertion but per patient this is improving, CXR with no congestion - trend troponin - continue aspirin, statin - echo ordered - concern for foot infection - may be 2/2 demand ischemia - d/w ED team - concern for PE given complaint of dyspnea on exertion, tachycardia, elevated trop. on heparin gtt, unable to do CTA chest due to contrast allergy and ESRD, not on HD at this point, planning for V/Q scan 2. Cardiomyopathy: - EF 30% on mibi - echo ordered - no bb given history of worsening dyspnea and wheezing with metoprolol, no MERRILL/ ARB given CKD 3. L toe ulcer: - manage per podiatry, vascular 4. HTN: - stable, continue home meds 5. DM: - manage per primary, endo 6. CKD: - nephrology consulted - recent AV fistula placement 7.HLD: - cont statin
[2018-06-13] MEDS ORDERED: PT OWN MED DRAWER 7, Y5N ONE (10:18)
[2018-06-13] MEDS: ASPIRIN COATED 81 MG TABLET.EC PO SCH (11:03)
[2018-06-13] MEDS: CYANOCOBALAMIN 1,000 MCG TABLET (FP) PO SCH (11:03)
[2018-06-13] MEDS: amLODIPine BESYLATE 10 MG TABLET (FP) PO SCH (11:03)
--- NOTE | 2018-06-13 11:20 | CONSULT ---
Consult Consult Specialty:: Podiatry Reason for Consultation:: wound left big toe - History of Present Illness Chief Complaint: wound left big toe chronic History of Present Illness: chronic wound left big toe - History Source History Provided By: Patient, Medical Record - Past Medical History Cardio/Vascular: Yes: HTN, Hyperlipdemia Renal/: Yes: Renal Inusuff, Other (wilms tumor) Musculoskeletal: Yes: Other (poorly healed right ankle fracture, +grade 1-2 wound plantar left hallux, +hallux limitus left) Endocrine: Yes: Diabetes Mellitus - Past Surgical History Past Surgical History: Yes: Appendectomy, AV Fistula/Graft, Nephrectomy - Alcohol/Substance Use Hx Alcohol Use: No - Smoking History Smoking history: Never smoked Have you smoked in the past 12 months: No Aproximately how many cigarettes per day: 0 - Social History ADL: Independent Home Medications - Allergies Allergies/Adverse Reactions: Allergies Allergy/AdvReac Type Severity Reaction Status Date / Time Iodinated Contrast- Oral and Allergy Intermediate Hives Verified 05/23/18 09:26 IV Dye - Home Medications Home Medications: Ambulatory Orders Aspirin [Ecotrin] 81 mg PO DAILY 09/03/15 Cyanocobalamin [Vitamin B12 -] 1,000 mcg PO DAILY 03/15/18 Atorvastatin Ca [Lipitor] 20 mg PO DAILY 04/30/18 Fish Oil/Borage/Flax/Om3,6,9 1 [[place] 3-6-9 Complex Softgel] 1 each PO DAILY Insulin (Levemir) [Levemir Vial] 20 units SQ BID 04/30/18 Amlodipine Besylate [Norvasc -] 10 mg PO DAILY 05/23/18 Hydralazine HCl 10 mg PO TID 05/23/18 Insulin Sliding Scale [Novolog Vial Sliding Scale -] 1 vial SQ ASDIR PRN Physical Exam Vital Signs: Vital Signs Temperature 98.1 F 06/13/18 06:00 Pulse Rate 98 H 06/13/18 06:00 Respiratory Rate 20 06/13/18 06:00 Blood Pressure 137/77 06/13/18 06:00 O2 Sat by Pulse Oximetry (%) 96 06/12/18 22:30 Musculoskeletal: Yes: Other (grade 2-3 wound left big toe, -draiange today, + cellulitis improved from saturday visit,) Labs: CBC, BMP 06/13/18 05:30 06/13/18 05:30 Assessment/Plan om? chronic wound left big toe vascular consult. ID on case. Mereyl dressing change to left big toe. MRI left hallux. Will follow.
--- NOTE | 2018-06-13 13:34 | PN ---
Progress Note, Physician Chief Complaint: patient seen and examiend no CP no sob came in with abnormal labs - Current Medication List Current Medications: Active Medications Amlodipine Besylate (Norvasc -) 10 mg PO DAILY [facility] Last Admin: 06/13/18 11:03 Dose: 10 mg Aspirin (Ecotrin -) 81 mg PO DAILY [facility] Last Admin: 06/13/18 11:03 Dose: 81 mg Atorvastatin Calcium (Lipitor -) 20 mg PO HS [facility] Collagenase (Santyl -) 1 applic TP DAILY [facility]; Protocol Cyanocobalamin (Vitamin B12 -) 1,000 mcg PO DAILY [facility] Last Admin: 06/13/18 11:03 Dose: 1,000 mcg Hydralazine HCl (Apresoline -) 10 mg PO TID [facility] Last Admin: 06/13/18 06:49 Dose: 10 mg Heparin Sodium (Porcine) 25, (000 unit/ Sodium Chloride) 500 mls @ 20 mls/hr IV TITR [facility]; Protocol Last Admin: 06/13/18 00:43 Dose: 1,100 unit/hr, 22 mls/hr Insulin Aspart (Novolog Vial Sliding Scale -) 1 vial SQ ACHS [facility]; Protocol Last Admin: 06/13/18 13:25 Dose: Not Given Insulin Detemir (Levemir Vial) 20 units SQ BID@0700,2200 [facility] Last Admin: 06/13/18 06:49 Dose: 20 units - Objective Vital Signs: Vital Signs Temperature 99.2 F 06/13/18 10:00 Pulse Rate 102 H 06/13/18 10:00 Respiratory Rate 18 06/13/18 10:00 Blood Pressure 159/87 06/13/18 10:00 O2 Sat by Pulse Oximetry (%) 97 06/13/18 09:00 Constitutional: Yes: Calm Neck: Yes: Trachea Midline Cardiovascular: Yes: Regular Rate and Rhythm, S1, S2 Respiratory: Yes: CTA Bilaterally Gastrointestinal: Yes: Normal Bowel Sounds, Soft Extremities: Yes: Other (left toe wound seen left upper arm bruit/) Edema: Yes Labs: CBC, BMP 06/13/18 05:30 06/13/18 05:30 INR, PTT INR 1.14 (0.83-1.09) H 06/12/18 23:30 Problem List - Problems (1) Elevated troponin Assessment/Plan: trend troponin cardiology on board to review stress test echo iv heparin Code(s): R74.8 - ABNORMAL LEVELS OF OTHER SERUM ENZYMES (2) Chronic renal disease Assessment/Plan: renal consult doppler no dvt Code(s): N18.9 - CHRONIC KIDNEY DISEASE, UNSPECIFIED (3) Diabetes Assessment/Plan: insulin bid Code(s): E11.9 - TYPE 2 DIABETES MELLITUS WITHOUT COMPLICATIONS Qualifiers: Diabetes mellitus type: type 1 Diabetes mellitus complication status: with skin complications Diabetes mellitus complication detail: with foot ulcer Qualified Code(s): E10.621 - Type 1 diabetes mellitus with foot ulcer (4) D-dimer, elevated Assessment/Plan: vq scan Code(s): R79.89 - OTHER SPECIFIED ABNORMAL FINDINGS OF BLOOD CHEMISTRY (5) Wound, open, toe Assessment/Plan: podiatry on board MRI ordered Code(s): S91.109A - UNSP OPEN WOUND OF UNSP TOE(S) W/O DAMAGE TO NAIL, INIT
--- NOTE | 2018-06-13 13:52 | CONSULT ---
- Consultation REQUESTING PROVIDER: CONSULT REQUEST: We have been asked to surgically evaluate this patient for Left great toe ulcer. PCP:Michelle Ruiz HISTORY OF PRESENT ILLNESS: The patient is a 63 yo male who presents to the hospital for bilateral lower ext edema and Left great toe infection. He has a recurrent Left great toe ulcer. In the past he was treated for a left great toe ulcer with HBOT. This ulcer healed and reoccurred with treatment by Dr Alfonso. Within the past month it opened up again, he has had an increase in swelling to his feet. The patient denies any fevers but did have chills. His toe was swollen and red when he got here but have improved. He has noticed a small amount of drainage to the toe.In the past he also had a right great toe ulcer. He has bilateral foot drop and weakness to the left leg. PMHx: HTN, diabetes, bilateral wound infections PSHx: Left AVF, Nephrectomy(Wilms tumor), exp lap for SBO x2, right ankle fracture, Right shoulder rotator cuff repair after fall Home Medications Medication Instructions Recorded Aspirin [Ecotrin] 81 mg PO DAILY 09/03/15 Cyanocobalamin [Vitamin B12 -] 1,000 mcg PO DAILY 03/15/18 Atorvastatin Ca [Lipitor] 20 mg PO DAILY 04/30/18 Fish Oil/Borage/Flax/Om3,6,9 1 1 each PO DAILY 04/30/18 [[place] 3-6-9 Complex Softgel] Insulin (Levemir) [Levemir Vial] 20 units SQ BID 04/30/18 Amlodipine Besylate [Norvasc -] 10 mg PO DAILY 05/23/18 Hydralazine HCl 10 mg PO TID 05/23/18 Insulin Sliding Scale [Novolog 1 vial SQ ASDIR PRN 06/12/18 Vial Sliding Scale -] Allergies Allergy/AdvReac Type Severity Reaction Status Date / Time Iodinated Contrast- Oral and Allergy Intermediate Hives Verified 05/23/18 09:26 IV Dye REVIEW OF SYSTEMS: CONSTITUTIONAL: Present: chills Absent:Fever CARDIOVASCULAR: Absent: chest pain, syncope, palpitations RESPIRATORY: Absent: cough, shortness of breath GASTROINTESTINAL: Absent: abdominal pain, abdominal distension GENITOURINARY: Absent: dysuria, hematuria NEUROLOGIC: Present: paresthesias to hands Absent: Seizure, migranes PHYSICAL EXAM: GENERAL: Awake, alert, and fully oriented, in no acute distress. LUNGS: Clear to auscultation bilat anteriorly. HEART: Regular rate and rhythm. ABDOMEN: Soft, nontender, not distended. Healed mid abd scars UPPER EXTREMITIES: 2+ Left Radial/ulnar pulses, cool to touch, No cyanosis. Mild LUE peripheral edema. Healed AC horizontal scar, with palpable thrill, soft. LOWER EXTREMITIES: 2+DP/PT pulses b/l (confirmed with doppler), warm, well- perfused. bilateral edema Left>right. Left leg with mild erythema. 0.5 x0.5 cm callous ulcer to the left great toe which is swollen and no drainage noted. NEUROLOGICAL: Normal speech, gait not observed. PSYCH: Cooperative. Good eye contact. Appropriate mood and affect. Vital Signs Temperature 98.1 F 06/13/18 13:31 Pulse Rate 97 H 06/13/18 13:31 Respiratory Rate 18 06/13/18 13:31 Blood Pressure 164/94 06/13/18 13:31 O2 Sat by Pulse Oximetry (%) 97 06/13/18 09:00 Lab Results WBC 7.4 K/mm3 (4.0-10.0) 06/13/18 05:30 RBC 3.68 M/mm3 (4.00-5.60) L 06/13/18 05:30 Hgb 10.3 GM/dL (11.7-16.9) L 06/13/18 05:30 Hct 30.8 % (35.4-49) L 06/13/18 05:30 MCV 83.7 fl (80-96) 06/13/18 05:30 MCHC 33.5 g/dl (32.0-35.9) 06/13/18 05:30 RDW 15.0 % (11.9-15.9) 06/13/18 05:30 Plt Count 194 K/MM3 (134-434) 06/13/18 05:30 Sodium 139 mmol/L (136-145) 06/13/18 05:30 Potassium 4.6 mmol/L (3.5-5.1) 06/13/18 05:30 Chloride 109 mmol/L (98-107) H 06/13/18 05:30 Carbon Dioxide 22 mmol/L (21-32) 04/26/19 05:30 Anion Gap 8 MMOL/L (8-16) 06/13/18 05:30 BUN 52 mg/dL (7-18) H 06/13/18 05:30 Creatinine 4.6 mg/dL (0.55-1.3) H 06/13/18 05:30 Random Glucose 150 mg/dL (74-106) H 06/13/18 05:30 Calcium 8.1 mg/dL (8.5-10.1) L 06/13/18 05:30 INR 1.14 (0.83-1.09) H 06/12/18 23:30 Duplex: 06/12-no evidence of dvt to bilateral LE Duplex: 06/12-Left upper ext-no evidence of DVT 4x3x1.7 cm fluid collection xray toe: 06/12-soft tissue edema, ulcer A/p: 63 yo male with recurrent left great toe ulcer Recommend IV abx, awaiting ID consult LUE-small fluid collection. No erythema, incision healing well. Mild edema. Elevate LUE on pillow. Fistula created 05/01-fluid collection possible small hematoma. No acute vascular compromise to bilateral LE, Pod/medicine obtaining MRI of LLE to r/o osteomyelitits. Local wound care as per podiatry. D/w Dr. Guillen and agrees with the plan.
--- NOTE | 2018-06-13 14:04 | ECHO ---
Name: MARIA DEL CARMENALFRED Exam:Adult Echocardiogram Study Date: 06/13/2018 10:33 AM Age: 63 yrs Reason For Study: elevated troponin Height: 67 in Weight: 215 lb BSA: 2.1 m2 MMode/2D Measurements & Calculations IVSd: 1.2 cm Ao root diam: 3.3 cm LVIDd: 5.1 cm LA dimension: 3.5 cm LVIDs: 3.3 cm LVPWd: 1.3 cm EDV(Teich): 121.8 ml LVOT diam: 2.1 cm ESV(Teich): 44.1 ml LAV (MOD-bp): 48.2 ml Doppler Measurements & Calculations MV E max ochoa: 137.0 cm/sec Ao V2 max: 119.4 cm/sec MV A max ochoa: 125.8 cm/sec Ao max P.7 mmHg MV E/A: 1.1 MV dec time: 0.11 sec DAYANA(V,D): 2.4 cm2 LV V1 max P.5 mmHg MR max ochoa: 282.3 cm/sec LV V1 max: 78.6 cm/sec MR max P.9 mmHg PA V2 max: 80.1 cm/sec Med Peak E' Ochoa: 10.9 cm/sec PA max P.6 mmHg Med E/e': 12.6 Lat Peak E' Ochoa: 12.4 cm/sec Lat E/e': 11.0 Procedure The study was technically difficult with many images being suboptimal in quality. Left Ventricle Although wall motion is not well seen, overall left ventricular systolic function appears overall mil dly reduced. Regional wall motion abnormalities cannot be excluded due to limited visualization. Right Ventricle The right ventricle is grossly normal size. The right ventricular systolic function is grossly normal . Atria Normal left and right atrial size and function. Mitral Valve The mitral valve is normal in structure and function. There is no mitral valve stenosis. There is mil d mitral regurgitation. Tricuspid Valve The tricuspid valve is normal in structure and function. There is mild tricuspid regurgitation. Right ventricular systolic pressure is elevated at 30-40mmHg. Aortic Valve The aortic valve opens well. No hemodynamically significant valvular aortic stenosis. No aortic regur gitation is present. Pulmonic Valve The pulmonic valve is not well seen, but is grossly normal. There is no pulmonic valvular stenosis. Great Vessels The aortic root is normal size. Pericardium/Pleura There is no pericardial effusion. Interpretation Summary The study was technically difficult with many images being suboptimal in quality. Regional wall motion abnormalities cannot be excluded due to limited visualization. Although wall motion is not well seen, overall left ventricular systolic function appears overall mil dly reduced. There is mild mitral regurgitation. There is mild tricuspid regurgitation. Right ventricular systolic pressure is elevated at 30-40mmHg. There is no pericardial effusion. MD Smallwood *Prieto 06/13/2018 02:04 PM
--- NOTE | 2018-06-13 15:16 | PN ---
Progress Note (short form) - Note Progress Note: PULMONARY CONSULTATION DICTATED 06/13/18 IMP DYSPNEA ? UNDERLYING MILD OBSTRUCTIVE AIRWAY DISEASE SYMPTOMS EXACERBATED BY BETA-BLOCKERS,? CARDIAC CARDIOMYOPATHY CKD + TROPONIN ELEVATED D-DIMER NON-SPECIFIC HTN DM H/O WILMS TUMOR S/P L NEPHRECTOMY PULMONARY HTN ? REBECCA LEFT FOOT ULCER PLAN PFTS OUTPATIENT STRICT I+O HEPARIN MONITOR LYTES,RENAL FUNCTION CHEST CT W/O CONTRAST SLEEP SCREEN TREND TROPONIN DR MCDANIEL Problem List - Problems (1) Dyspnea Code(s): R06.00 - DYSPNEA, UNSPECIFIED (2) D-dimer, elevated Code(s): R79.89 - OTHER SPECIFIED ABNORMAL FINDINGS OF BLOOD CHEMISTRY (3) Elevated troponin Code(s): R74.8 - ABNORMAL LEVELS OF OTHER SERUM ENZYMES (4) Wound, open, toe Code(s): S91.109A - UNSP OPEN WOUND OF UNSP TOE(S) W/O DAMAGE TO NAIL, INIT (5) Acute kidney injury superimposed on chronic kidney disease Code(s): N17.9 - ACUTE KIDNEY FAILURE, UNSPECIFIED; N18.9 - CHRONIC KIDNEY DISEASE, UNSPECIFIED (6) CKD (chronic kidney disease) Code(s): N18.9 - CHRONIC KIDNEY DISEASE, UNSPECIFIED (7) HTN (hypertension) Code(s): I10 - ESSENTIAL (PRIMARY) HYPERTENSION Qualifiers: Hypertension type: essential hypertension Qualified Code(s): I10 - Essential (primary) hypertension (8) Hypercholesterolemia Code(s): E78.0 - PURE HYPERCHOLESTEROLEMIA * DO NOT USE * (9) Troponin I above reference range Code(s): R74.8 - ABNORMAL LEVELS OF OTHER SERUM ENZYMES (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
--- NOTE | 2018-06-13 16:08 | CONSULT ---
Consult Consult Specialty:: Nephrology Reason for Consultation:: CKD - History of Present Illness Chief Complaint: sent in for abnormal labs History of Present Illness: Pt is a 63 year old male with pmhx of CKD, DM, HLD, HTN, Wilms Tumor, and DFU who was sent in for abnormal labs. He was found to have elevated cardiac enzymes. He follows with me for CKD. He denies chest pain or shortness of breath. - History Source History Provided By: Patient, Medical Record - Past Medical History Cardio/Vascular: Yes: HTN, Hyperlipdemia Renal/: Yes: Renal Inusuff, Other (wilms tumor) Musculoskeletal: Yes: Other (poorly healed right ankle fracture, +grade 1-2 wound plantar left hallux, +hallux limitus left) Endocrine: Yes: Diabetes Mellitus - Past Surgical History Past Surgical History: Yes: Appendectomy, AV Fistula/Graft, Nephrectomy - Alcohol/Substance Use Hx Alcohol Use: No - Smoking History Smoking history: Never smoked Have you smoked in the past 12 months: No Aproximately how many cigarettes per day: 0 - Social History ADL: Independent Home Medications - Allergies Allergies/Adverse Reactions: Allergies Allergy/AdvReac Type Severity Reaction Status Date / Time Iodinated Contrast- Oral and Allergy Intermediate Hives Verified 05/23/18 09:26 IV Dye - Home Medications Home Medications: Ambulatory Orders Aspirin [Ecotrin] 81 mg PO DAILY 09/03/15 Cyanocobalamin [Vitamin B12 -] 1,000 mcg PO DAILY 03/15/18 Atorvastatin Ca [Lipitor] 20 mg PO DAILY 04/30/18 Fish Oil/Borage/Flax/Om3,6,9 1 [[place] 3-6-9 Complex Softgel] 1 each PO DAILY Insulin (Levemir) [Levemir Vial] 20 units SQ BID 04/30/18 Amlodipine Besylate [Norvasc -] 10 mg PO DAILY 05/23/18 Hydralazine HCl 10 mg PO TID 05/23/18 Insulin Sliding Scale [Novolog Vial Sliding Scale -] 1 vial SQ ASDIR PRN Family Disease History - Family Disease History Family History: Denies Review of Systems - Review of Systems Constitutional: reports: No Symptoms Eyes: reports: No Symptoms HENT: reports: No Symptoms Neck: reports: No Symptoms Cardiovascular: reports: No Symptoms Respiratory: reports: No Symptoms Gastrointestinal: reports: No Symptoms Genitourinary: reports: No Symptoms Musculoskeletal: reports: No Symptoms Integumentary: reports: No Symptoms Neurological: reports: No Symptoms Endocrine: reports: No Symptoms Hematology/Lymphatic: reports: No Symptoms Psychiatric: reports: No Symptoms Physical Exam Vital Signs: Vital Signs Temperature 98.1 F 06/13/18 13:31 Pulse Rate 97 H 06/13/18 13:31 Respiratory Rate 18 06/13/18 13:31 Blood Pressure 164/94 06/13/18 13:31 O2 Sat by Pulse Oximetry (%) 97 06/13/18 09:00 Constitutional: Yes: Calm Eyes: Yes: Conjunctiva Clear HENT: Yes: Atraumatic Cardiovascular: Yes: S1, S2 Respiratory: Yes: CTA Bilaterally Gastrointestinal: Yes: Normal Bowel Sounds, Soft Renal/: Yes: WNL Musculoskeletal: Yes: WNL Edema: No Neurological: Yes: Oriented Psychiatric: Yes: Oriented Labs: CBC, BMP 06/13/18 05:30 06/13/18 05:30 Laboratory Tests 04/30/18 05/16/18 06/12/18 07:43 15:00 12:34 Carbon Dioxide BUN Creatinine 4.5 H 4.7 H 4.5 H 06/13/18 05:30 Carbon Dioxide 22 BUN 52 H Creatinine 4.6 H Assessment/Plan Current Medications Generic Name Dose Route Start Last Admin Trade Name Freq PRN Reason Stop Dose Admin Amlodipine Besylate 10 mg 06/13/18 10:00 06/13/18 11:03 Norvasc - PO 10 mg DAILY EDWARD Administration Aspirin 81 mg 06/13/18 10:00 06/13/18 11:03 Ecotrin - PO 81 mg DAILY EDWARD Administration Atorvastatin Calcium 20 mg 06/13/18 22:00 Lipitor - PO HS EDWARD Collagenase 1 applic 06/13/18 11:30 Santyl - TP DAILY EDWARD Protocol Cyanocobalamin 1,000 mcg 06/13/18 10:00 06/13/18 11:03 Vitamin B12 - PO 1,000 mcg DAILY EDWARD Administration Hydralazine HCl 10 mg 06/12/18 22:00 06/13/18 06:49 Apresoline - PO 10 mg TID EDWARD Administration Heparin Sodium (Porcine) 25, 500 mls @ 20 mls/hr 06/12/18 16:45 06/13/18 00: 43 000 unit/ Sodium Chloride IV 1,100 unit/hr TITR EDWARD 22 mls/hr Administration Protocol 1,000 UNIT/HR Insulin Aspart 1 vial 06/13/18 07:00 06/13/18 13:25 Novolog Vial Sliding Scale - SQ Not Given ACHS EDWARD Protocol Insulin Detemir 20 units 06/12/18 22:00 06/13/18 06:49 Levemir Vial SQ 20 units BID@0700,2200 [facility] Administration Impression 1. CKD 2. elevated cardiac enzymes 3. DM 4. chest pain 5. hyperlipidemia 6. HTN 7. hx of Wilms tumor, s/p left nephrectomy Plan - increase hydralazine dose - monitor bp - cont amlodipine - start sodium bicarb po - will follow - will hold off HD until fistula is mature
--- NOTE | 2018-06-13 16:59 | CONS ---
DATE OF CONSULTATION: 06/13/2018 REFERRING PHYSICIAN: Flex Mckenzie MD The patient is a 63-year-old white male with extensive past medical history which includes Wilms tumor status post left nephrectomy at age 4, hypertension, chronic kidney disease, diabetes, hyperlipidemia, hypertension, recent left upper extremity fistula placement approximately 5 weeks ago, admitted to [facility] for possible foot infection, abnormal labs. Patient was apparently in Dr. Mckenzie's office and noted worsening renal function as well as elevated troponins. Of note is the patient states a couple weeks prior to admission he started developing increasing shortness of breath. He states he was placed on metoprolol, but as soon as he started it he started developing wheezing and marked shortness of breath with minimal exertion. He stopped it on his own with significant improvement in his symptoms. In the ER apparently he was noted to be tachycardic and noted to be hypoxic, although could not find a low O2 saturation noted on the computer. Patient denies any history of COPD or asthma. He does state that his mother had COPD and asthma and that he was exposed to secondhand smoke. He is a nonsmoker. He previously worked on boilers and denies any history of exposure to asbestos. He states he still gets occasional wheezing, predominantly when laying down at night. He denies any bronchospasm while walking. He denies any chronic cough or hemoptysis. Denies any fevers, weight loss, or night sweats. PAST MEDICAL HISTORY: Again, left nephrectomy secondary to Wilms tumor, hypertension, hyperlipidemia, diabetes, chronic kidney disease, left upper extremity fistula placement, appendectomy, poorly healed right ankle fracture. CURRENT MEDICATIONS: Include heparin, Norvasc, Apresoline, Lipitor, NovoLog, Levemir, Ecotrin, Santyl, and vitamin B12. REVIEW OF SYSTEMS: No orthopnea. No dyspnea at this time. No chest pain, no palpitations. No cough, no hemoptysis. No abdominal pain. Positive lower extremity edema. PHYSICAL EXAMINATION: General: The patient is an obese male, awake, alert, in no acute distress. Vital Signs: He is afebrile. Blood pressure 164/94, respiratory rate is 18, O2 saturation is 97% on room air. HEENT: Exam is normocephalic, atraumatic. Neck: Supple. Heart: Regular, S1, S2. Chest: Clear. Abdomen: Soft. Bowel sounds positive. Extremities: Bilateral lower extremity edema. LABORATORY: BUN 52, creatinine 4.6, troponin 0.65. WBC is 7.4, hemoglobin 10.3 , hematocrit 30.8, with a platelet count of 294,000. Echocardiogram: Poor study. Appears mildly reduced left ventricular systolic function, and there is mild pulmonary hypertension, right ventricular systolic pressure 30-40 mm. IMPRESSION: 1. Dyspnea, likely secondary to cardiomyopathy, congestive heart failure. 2. Rule out possible mild underlying obstructive airway disease secondary to significant worsening of bronchospasm as well as shortness of breath with beta blockers given family history of asthma. 3. Rfaww-bv-ziupzby kidney disease. 4. Elevated troponin. 5. Left toe ulcer. 6. Pulmonary hypertension. 7. History of Wilms tumor status post left nephrectomy. 8. Obstructive sleep apnea. 9. Elevated D-dimer, nonspecific. Patient has multiple medical problems. Elevated D-dimer nonspecific. PLAN: PFTs as outpatient. Strict I's and O's. Heparin. Monitor electrolytes, renal function, trend troponins. Also obtain CT scan of the chest without contrast. Rule out underlying interstitial lung disease. Consider outpatient sleep study, order sleep screen, and VQ scan is pending. MIGUE MCDANIEL M.D. [place]/[id number] MTDD
--- NOTE | 2018-06-13 17:14 | PN ---
Progress Note (short form) - Note Progress Note: ID consult dictated imp/reccd chills since avf was placed? no fevers swelling both legs- left lower extremity with erythema and warmth small ulcer left great toe- no drainage- chronic for last one year repeat blood cultures now, esr/crp MRI of toe cefazolin for cellulitis of the LLE history of DM/CKD Problem List - Problems (1) Chills (without fever) Code(s): R68.83 - CHILLS (WITHOUT FEVER) (2) Cellulitis Code(s): L03.90 - CELLULITIS, UNSPECIFIED (3) Wound, open, toe Code(s): S91.109A - UNSP OPEN WOUND OF UNSP TOE(S) W/O DAMAGE TO NAIL, INIT (4) CKD (chronic kidney disease) Code(s): N18.9 - CHRONIC KIDNEY DISEASE, UNSPECIFIED (5) Diabetes Code(s): E11.9 - TYPE 2 DIABETES MELLITUS WITHOUT COMPLICATIONS Qualifiers: Diabetes mellitus type: type 1 Diabetes mellitus complication status: with skin complications Diabetes mellitus complication detail: with foot ulcer Qualified Code(s): E10.621 - Type 1 diabetes mellitus with foot ulcer
[2018-06-13] MEDS ORDERED: CEFAZOLIN 1 GM/D5W 1 GM/50 ML BAG IVPB SCH ×2 (17:30)
[2018-06-13] MEDS: hydrALAZINE HCL 25 MG TABLET (FP) PO SCH (21:56)
[2018-06-13] MEDS: ATORVASTATIN CA 20 MG TABLET (FP) PO SCH (21:56)
[2018-06-13] MEDS: COLLAGENASE CLOSTRIDIUM HIST. 30 GRAMS TUBE TP SCH (22:52)
--- NOTE | 2018-06-13 23:03 | CONS ---
DATE OF CONSULTATION: DATE OF DICTATION: 06/13/2018 INFECTIOUS DISEASE CONSULTATION REQUESTING PHYSICIAN: Michelle Ruiz M.D. CONSULTING PHYSICIAN: Jossie Samuels M.D. HISTORY OF PRESENT ILLNESS: This is a 63-year-old man who is a patient of Dr. Mckenzie. He was referred to the emergency room for an elevated troponin that was noted on some outpatient labs. He also has a complaint of chills and an open ulcer on his left big toe. He is a 63-year-old man with chronic kidney disease. About 5 weeks ago, he had a left upper extremity fistula placed. Since that time he reports he has chills, but no fever. He has had bilateral lower extremity swelling. He has had trouble wearing his shoes because his feel have gotten swollen and he has a chronic ulcer that he has had for more than a year on his left big toe that is not draining. He was seen in the emergency room where he reported a history of dyspnea on exertion that is worsened. It was after he started metoprolol. Metoprolol was changed to hydralazine, and he reported improvement in the shortness of breath. He was noted to have an elevated troponin in the ER and a normal white count with no fever. I am asked to see him for possible cellulitis and infected toe ulcer. PAST MEDICAL HISTORY: Notable for CKD, diabetes, hyperlipidemia, hypertension, Wilms tumor. He has a history of prior osteo of his first toe and was treated in 2016 with ceftriaxone for 6 weeks. SURGICAL HISTORY: Notable for nephrectomy for the Wilms tumor. He has a history of left AV fistula. He had an exploratory lap with small bowel obstruction x2, right ankle fracture, right shoulder rotator cuff repair. MEDICATIONS AT HOME: Include aspirin, B12, Lipitor, omega 3, Levemir, Norvasc, hydralazine which she recently started, and insulin. ALLERGIES: He is allergic to IODINATED CONTRAST which gives him hives. SOCIAL HISTORY: Lives at home with his family. There is no history of any sick contacts. There is no history of cigarette, alcohol, or substance use. FAMILY HISTORY: Noncontributory. REVIEW OF SYSTEMS: He has had no fevers. He noted the intermittent chills. He has had the shortness of breath, and he has this toe ulcer that he has had for a year. He has had bilateral lower extremity swelling, which he reports has been new since the placement of the fistula, which was done on May 01. He has no history of any multidrug resistance. PHYSICAL EXAMINATION: GENERAL: He is awake and alert. He is a pleasant man in no acute distress. VITAL SIGNS: He is afebrile. Temperature 98.8, T-max is 99.2, pulse 96, blood pressure 143/95, respiratory rate 20, saturating 97% on room air. HEENT: Normocephalic. Eyes are anicteric. NECK: Supple. LUNGS: Diminished breath sounds at the bases. HEART: Regular rate and rhythm. ABDOMEN: Soft, nontender. EXTREMITIES: His left arm AV fistula has a good thrill. There is no erythema or induration. His extremities, he has bilateral edema of both his legs extending up to about the ankle. His left is warmer than his right, and he has a dry ulcer on the plantar surface, about 1 cm diameter of his left big toe. LABORATORY: Notable for white count of 7.4, hemoglobin 10.3, platelets of 194, BUN and creatinine are 52 and 4.6. Creatinine clearance is 12.9. LFTs are normal. Urinalysis is not done. His one set of blood cultures was obtained. IMPRESSION: In summary, this is a 63-year-old man with chills of unclear etiology, reports since the arteriovenous fistula was placed. No fevers. Swelling of both legs with left lower extremity cellulitis. Would obtain repeat blood culture now, a sedimentation rate, a C-reactive protein. Would treat him with cefazolin at this time adjusted for his CKD for his left lower extremity cellulitis. He has a history of diabetes and CKD as well. Further recommendations to follow. He is scheduled for MRI will f/u. Jordi ROGERS/[id number] KEIRY
[2018-06-14] MEDS: hydrALAZINE HCL 25 MG TABLET (FP) PO SCH ×3 (05:51→22:12)
[2018-06-14] MEDS: INSULIN SLIDING SCALE (NOVOLOG) 1 VIAL SQ SCH ×4 (06:25→22:15)
--- NOTE | 2018-06-14 08:45 | PN ---
Progress Note (short form) - Note Progress Note: follow up left big toe vss +improved cellulitis, +granulation, -drainage, mri done not read yet om? chronic wound continue care as per team. continue santyl. will follow.
[2018-06-14 09:34] LABS: HEMATOCRIT 32.8 % (35.4-49); HEMOGLOBIN 10.9 GM/dL (11.7-16.9); MCH 28.1 pg (25.7-33.7); MCHC 33.3 g/dl (32.0-35.9); MEAN CELL VOLUME 84.2 fl (80-96); MEAN PLT VOLUME 8.1 fl (7.5-11.1); PLATELET COUNT 211 K/MM3 (134-434); RBC 3.89 M/mm3 (4.00-5.60); RDW 14.6 % (11.9-15.9); WHITE BLOOD COUNT 7.1 K/mm3 (4.0-10.0)
[2018-06-14] MEDS: CEFAZOLIN 1 GM/D5W 1 GM/50 ML BAG IVPB SCH ×2 (09:45→22:12)
[2018-06-14] MEDS: INSULIN (LEVEMIR) 100 UNITS/ML UNITS SQ SCH ×2 (09:45→22:14)
--- NOTE | 2018-06-14 09:45 | PN ---
Progress Note, Physician Chief Complaint: V/Q negative TELE: NSR Denies SOB or CP - Current Medication List Current Medications: Active Medications Amlodipine Besylate (Norvasc -) 10 mg PO DAILY [facility] Last Admin: 06/13/18 11:03 Dose: 10 mg Aspirin (Ecotrin -) 81 mg PO DAILY [facility] Last Admin: 06/13/18 11:03 Dose: 81 mg Atorvastatin Calcium (Lipitor -) 20 mg PO HS [facility] Last Admin: 06/13/18 21:56 Dose: 20 mg Collagenase (Santyl -) 1 applic TP DAILY [facility]; Protocol Last Admin: 06/13/18 22:52 Dose: 1 applic Cyanocobalamin (Vitamin B12 -) 1,000 mcg PO DAILY [facility] Last Admin: 06/13/18 11:03 Dose: 1,000 mcg Hydralazine HCl (Apresoline -) 25 mg PO TID [facility] Last Admin: 06/14/18 05:51 Dose: 25 mg Heparin Sodium (Porcine) 25, (000 unit/ Sodium Chloride) 500 mls @ 20 mls/hr IV TITR [facility]; Protocol Last Titration: 06/14/18 00:54 Dose: 1,100 unit/hr, 22 mls/hr Cefazolin Sodium (Ancef 1 Gm Premixed Ivpb -) 1 gm in 50 mls @ 100 mls/hr IVPB BID [facility] Insulin Aspart (Novolog Vial Sliding Scale -) 1 vial SQ ACHS [facility]; Protocol Last Admin: 06/14/18 06:25 Dose: Not Given Insulin Detemir (Levemir Vial) 20 units SQ BID@0700,2200 [facility] Last Admin: 06/13/18 22:52 Dose: 20 units - Objective Vital Signs: Vital Signs Temperature 98.2 F 06/14/18 06:00 Pulse Rate 99 H 06/14/18 06:00 Respiratory Rate 20 06/14/18 06:00 Blood Pressure 138/93 06/14/18 06:00 O2 Sat by Pulse Oximetry (%) 95 06/13/18 20:58 Constitutional: Yes: Calm Eyes: Yes: Conjunctiva Clear Cardiovascular: Yes: Regular Rate and Rhythm Respiratory: Yes: CTA Bilaterally Gastrointestinal: Yes: Soft, Abdomen, Obese Edema: No Neurological: Yes: Alert, Oriented Labs: CBC, BMP 06/14/18 07:55 06/13/18 05:30 INR, PTT INR 1.14 (0.83-1.09) H 06/12/18 23:30 - ....Imaging EKG: Image Reviewed Assessment/Plan Assessment/Plan 1. Elevated troponin, abnormal stress test/Dyspnea: - trop 0.47, EKG no ischemic changes, history less consistent with ACS - recent mibi 04/2018 showed EF 30% and small area of mild ischemia. Images reviewed yesterday, mild apical ischemia with EF 30% range. - asymptomatic currently, however with elevated trop as above. Angiogram deferred given ESRD not yet on HD and contrast allergy - continue aspirin, statin - echo technically difficult, overall at least mildly reduced LV fx - concern for foot infection - may be 2/2 demand ischemia - V/Q scan negative. 2. Cardiomyopathy: - EF 30% on mibi - echo confrims at least mild LV dysfx - no bb given history of worsening dyspnea and wheezing with metoprolol, no MERRILL/ ARB given CKD -Medical management of underlying possible CAD as above. -Can consider low dose nitrates + hydral in future. 3. L toe ulcer: - manage per podiatry, vascular 4. HTN: - stable, continue home meds 5. DM: - manage per primary, endo 6. CKD: - nephrology consulted - recent AV fistula placement 7.HLD: - cont statin
[2018-06-14] MEDS: amLODIPine BESYLATE 10 MG TABLET (FP) PO SCH (09:46)
[2018-06-14] MEDS: CYANOCOBALAMIN 1,000 MCG TABLET (FP) PO SCH (09:46)
[2018-06-14] MEDS: ASPIRIN COATED 81 MG TABLET.EC PO SCH (09:46)
[2018-06-14] MEDS: COLLAGENASE CLOSTRIDIUM HIST. 30 GRAMS TUBE TP SCH (09:46)
[2018-06-14] MEDS: HEPARIN - 25,000 UNIT in SODIUM CHLORIDE 495 ML IV SCH (13:48)
--- NOTE | 2018-06-14 14:09 | PN ---
Progress Note (short form) - Note Progress Note: Feels better. No CP or SOB. V/Q: evidence of mismatch / possible small airways disease Intake & Output 06/11/18 06/12/18 06/13/18 06/14/18 23:59 23:59 23:59 23:59 Intake Total 214 754 Output Total 400 1200 Balance -186 -446 Weight 215 lb 229 lb 9.6 oz 229 lb 12.8 oz Last Vital Signs Temp Pulse Resp BP Pulse Ox 98.2 F 99 H 20 138/93 95 06/14/18 06:00 06/14/18 06:00 06/14/18 06:00 06/14/18 06:00 06/13/18 20:58 Active Medications Amlodipine Besylate (Norvasc -) 10 mg PO DAILY [facility] Last Admin: 06/14/18 09:46 Dose: 10 mg Aspirin (Ecotrin -) 81 mg PO DAILY [facility] Last Admin: 06/14/18 09:46 Dose: 81 mg Atorvastatin Calcium (Lipitor -) 20 mg PO HS [facility] Last Admin: 06/13/18 21:56 Dose: 20 mg Collagenase (Santyl -) 1 applic TP DAILY [facility]; Protocol Last Admin: 06/14/18 09:46 Dose: 1 applic Cyanocobalamin (Vitamin B12 -) 1,000 mcg PO DAILY [facility] Last Admin: 06/14/18 09:46 Dose: 1,000 mcg Hydralazine HCl (Apresoline -) 25 mg PO TID [facility] Last Admin: 06/14/18 05:51 Dose: 25 mg Heparin Sodium (Porcine) 25, (000 unit/ Sodium Chloride) 500 mls @ 20 mls/hr IV TITR [facility]; Protocol Last Admin: 06/14/18 13:48 Dose: 1,250 unit/hr, 25 mls/hr Cefazolin Sodium (Ancef 1 Gm Premixed Ivpb -) 1 gm in 50 mls @ 100 mls/hr IVPB BID [facility] Last Admin: 06/14/18 09:45 Dose: 100 mls/hr Insulin Aspart (Novolog Vial Sliding Scale -) 1 vial SQ ACHS [facility]; Protocol Last Admin: 06/14/18 11:48 Dose: Not Given Insulin Detemir (Levemir Vial) 20 units SQ BID@0700,2200 [facility] Last Admin: 06/14/18 09:45 Dose: 20 units Constitutional: Yes: NAD Eyes: Yes: Conjunctiva Clear Cardiovascular: Yes: Regular Rate and Rhythm Respiratory: Yes: Clear Gastrointestinal: Yes: Soft, Abdomen, Obese Edema: No Neurological: Yes: Alert, Oriented Labs: Laboratory Results - last 24 hr 06/13/18 06/13/18 06/13/18 16:58 19:00 19:00 WBC RBC Hgb Hct MCV MCH MCHC RDW Plt Count MPV ESR 63 H PTT (Actin FS) POC Glucometer 146 Hemoglobin A1c % Creatine Kinase Creatine Kinase Index CK-MB (CK-2) Troponin I C-Reactive Protein 6.4 H 06/13/18 06/14/18 06/14/18 22:51 06:19 07:55 WBC RBC Hgb Hct MCV MCH MCHC RDW Plt Count MPV ESR PTT (Actin FS) POC Glucometer 208 100 Hemoglobin A1c % 6.4 H Creatine Kinase Creatine Kinase Index CK-MB (CK-2) Troponin I C-Reactive Protein 06/14/18 06/14/18 06/14/18 07:55 07:55 07:55 WBC 7.1 RBC 3.89 L Hgb 10.9 L Hct 32.8 L MCV 84.2 MCH 28.1 MCHC 33.3 RDW 14.6 Plt Count 211 MPV 8.1 ESR PTT (Actin FS) 39.0 H POC Glucometer Hemoglobin A1c % Creatine Kinase 157 Creatine Kinase Index 3.8 CK-MB (CK-2) 6.1 H Troponin I 0.34 H C-Reactive Protein Problem List - Problems (1) Dyspnea Code(s): R06.00 - DYSPNEA, UNSPECIFIED (2) D-dimer, elevated Code(s): R79.89 - OTHER SPECIFIED ABNORMAL FINDINGS OF BLOOD CHEMISTRY (3) Elevated troponin Code(s): R74.8 - ABNORMAL LEVELS OF OTHER SERUM ENZYMES (4) Wound, open, toe Code(s): S91.109A - UNSP OPEN WOUND OF UNSP TOE(S) W/O DAMAGE TO NAIL, INIT (5) Acute kidney injury superimposed on chronic kidney disease Code(s): N17.9 - ACUTE KIDNEY FAILURE, UNSPECIFIED; N18.9 - CHRONIC KIDNEY DISEASE, UNSPECIFIED (6) CKD (chronic kidney disease) Code(s): N18.9 - CHRONIC KIDNEY DISEASE, UNSPECIFIED (7) HTN (hypertension) Code(s): I10 - ESSENTIAL (PRIMARY) HYPERTENSION Qualifiers: Hypertension type: essential hypertension Qualified Code(s): I10 - Essential (primary) hypertension (8) Hypercholesterolemia Code(s): E78.0 - PURE HYPERCHOLESTEROLEMIA * DO NOT USE * (9) Troponin I above reference range Code(s): R74.8 - ABNORMAL LEVELS OF OTHER SERUM ENZYMES (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 IMP DYSPNEA: POSSIBLY DUE TO UNDERLYING MILD OBSTRUCTIVE AIRWAY DISEASE (?) EXACERBATED BY BETA-BLOCKERS CARDIOMYOPATHY CKD + TROPONIN ELEVATED D-DIMER NON-SPECIFIC HTN DM H/O WILMS TUMOR S/P L NEPHRECTOMY PULMONARY HTN ? REBECCA LEFT FOOT ULCER PLAN O2 NEEDED PFTS OUTPATIENT STRICT I+O MONITOR LYTES,RENAL FUNCTION SLEEP SCREEN DR MOHAN
--- NOTE | 2018-06-14 14:54 | PN ---
Progress Note, Physician Chief Complaint: CKD Elevated Troponin PE History of Present Illness: Previous notes and events reviewed awake and alert NAD denies chest pain or SOB - Current Medication List Current Medications: Active Medications Amlodipine Besylate (Norvasc -) 10 mg PO DAILY [facility] Last Admin: 06/14/18 09:46 Dose: 10 mg Aspirin (Ecotrin -) 81 mg PO DAILY [facility] Last Admin: 06/14/18 09:46 Dose: 81 mg Atorvastatin Calcium (Lipitor -) 20 mg PO HS [facility] Last Admin: 06/13/18 21:56 Dose: 20 mg Collagenase (Santyl -) 1 applic TP DAILY [facility]; Protocol Last Admin: 06/14/18 09:46 Dose: 1 applic Cyanocobalamin (Vitamin B12 -) 1,000 mcg PO DAILY [facility] Last Admin: 06/14/18 09:46 Dose: 1,000 mcg Hydralazine HCl (Apresoline -) 25 mg PO TID [facility] Last Admin: 06/14/18 05:51 Dose: 25 mg Heparin Sodium (Porcine) 25, (000 unit/ Sodium Chloride) 500 mls @ 20 mls/hr IV TITR [facility]; Protocol Last Admin: 06/14/18 13:48 Dose: 1,250 unit/hr, 25 mls/hr Cefazolin Sodium (Ancef 1 Gm Premixed Ivpb -) 1 gm in 50 mls @ 100 mls/hr IVPB BID [facility] Last Admin: 06/14/18 09:45 Dose: 100 mls/hr Insulin Aspart (Novolog Vial Sliding Scale -) 1 vial SQ ACHS [facility]; Protocol Last Admin: 06/14/18 11:48 Dose: Not Given Insulin Detemir (Levemir Vial) 20 units SQ BID@0700,2200 [facility] Last Admin: 06/14/18 09:45 Dose: 20 units - Objective Vital Signs: Vital Signs Temperature 98.2 F 06/14/18 06:00 Pulse Rate 99 H 06/14/18 06:00 Respiratory Rate 20 06/14/18 06:00 Blood Pressure 138/93 06/14/18 06:00 O2 Sat by Pulse Oximetry (%) 95 06/13/18 20:58 Constitutional: Yes: No Distress, Calm Eyes: Yes: Conjunctiva Clear HENT: Yes: Atraumatic Cardiovascular: Yes: Regular Rate and Rhythm Respiratory: Yes: Regular, CTA Bilaterally Gastrointestinal: Yes: Normal Bowel Sounds, Soft Musculoskeletal: Yes: WNL Extremities: Yes: WNL Edema: Yes Edema: LLE: 1+ Neurological: Yes: Alert, Oriented Psychiatric: Yes: Alert, Oriented Labs: CBC, BMP 06/14/18 07:55 06/13/18 05:30 INR, PTT INR 1.14 (0.83-1.09) H 06/12/18 23:30 Microbiology 06/12/18 21:00 Blood - Peripheral Venous Blood Culture - Preliminary NO GROWTH OBTAINED AFTER 24 HOURS, INCUBATION TO CONTINUE FOR 4 DAYS. Problem List - Problems (1) D-dimer, elevated Assessment/Plan: -VQ scan results reviewed -Heparin drip Code(s): R79.89 - OTHER SPECIFIED ABNORMAL FINDINGS OF BLOOD CHEMISTRY (2) Elevated troponin Assessment/Plan: -troponin 0.34 -cardiology on board -heparin drip Code(s): R74.8 - ABNORMAL LEVELS OF OTHER SERUM ENZYMES (3) Wound, open, toe Assessment/Plan: -podiatry on board -apply Santyl -MRI shows no evidence of osteomyelitis Code(s): S91.109A - UNSP OPEN WOUND OF UNSP TOE(S) W/O DAMAGE TO NAIL, INIT (4) CKD (chronic kidney disease) Assessment/Plan: -BUN/Cr 52/4.6 -renal on board -monitor renal function daily Code(s): N18.9 - CHRONIC KIDNEY DISEASE, UNSPECIFIED (5) HTN (hypertension) Assessment/Plan: -continue Amlodipine and Hydralazine Code(s): I10 - ESSENTIAL (PRIMARY) HYPERTENSION Qualifiers: Hypertension type: essential hypertension Qualified Code(s): I10 - Essential (primary) hypertension (6) Hypercholesterolemia Assessment/Plan: -continue Atorvastatin Code(s): E78.0 - PURE HYPERCHOLESTEROLEMIA * DO NOT USE * (7) Type 1 diabetes mellitus with diabetic nephropathy Assessment/Plan: -BGM ACHS -Levemir + ISS -diabetic diet -Hg A1c 6.4% Code(s): E10.21 - TYPE 1 DIABETES MELLITUS WITH DIABETIC NEPHROPATHY Assessment/Plan see problem list dvt ppx
--- NOTE | 2018-06-14 16:43 | PN ---
Progress Note (short form) - Note Progress Note: covering dr felton 1. CKD 2. elevated cardiac enzymes 3. DM 4. chest pain 5. hyperlipidemia 6. HTN 7. hx of Wilms tumor, s/p left nephrectomy Current Medications Amlodipine Besylate (Norvasc -) 10 mg PO DAILY [facility] Last Admin: 06/14/18 09:46 Dose: 10 mg Aspirin (Ecotrin -) 81 mg PO DAILY [facility] Last Admin: 06/14/18 09:46 Dose: 81 mg Atorvastatin Calcium (Lipitor -) 20 mg PO HS [facility] Last Admin: 06/13/18 21:56 Dose: 20 mg Collagenase (Santyl -) 1 applic TP DAILY [facility]; Protocol Last Admin: 06/14/18 09:46 Dose: 1 applic Cyanocobalamin (Vitamin B12 -) 1,000 mcg PO DAILY [facility] Last Admin: 06/14/18 09:46 Dose: 1,000 mcg Hydralazine HCl (Apresoline -) 25 mg PO TID [facility] Last Admin: 06/14/18 14:55 Dose: 25 mg Heparin Sodium (Porcine) 25, (000 unit/ Sodium Chloride) 500 mls @ 20 mls/hr IV TITR [facility]; Protocol Last Admin: 06/14/18 13:48 Dose: 1,250 unit/hr, 25 mls/hr Cefazolin Sodium (Ancef 1 Gm Premixed Ivpb -) 1 gm in 50 mls @ 100 mls/hr IVPB BID [facility] Last Admin: 06/14/18 09:45 Dose: 100 mls/hr Insulin Aspart (Novolog Vial Sliding Scale -) 1 vial SQ ACHS [facility]; Protocol Last Admin: 06/14/18 11:48 Dose: Not Given Insulin Detemir (Levemir Vial) 20 units SQ BID@0700,2200 [facility] Last Admin: 06/14/18 09:45 Dose: 20 units Last Vital Signs Temp Pulse Resp BP Pulse Ox 98.4 F 92 H 20 158/84 95 06/14/18 14:00 06/14/18 14:00 06/14/18 06:00 06/14/18 14:00 06/13/18 20:58 Lungs clear Heart reg Abd soft nontender Ext no edema CBC, BMP 06/14/18 07:55 06/13/18 05:30 CKD stable Plan- \
[2018-06-14] MEDS: ATORVASTATIN CA 20 MG TABLET (FP) PO SCH (22:12)
--- NOTE | 2018-06-14 23:29 | CONSULT ---
Consult Consult Specialty:: endocrine Referred by:: dr.saba amaya Reason for Consultation:: diabetes mellitus type 2 - History of Present Illness Chief Complaint: swelling feet and left hand History of Present Illness: 63 year old male with history of DM2,chronic kidney diseas, hyperlipidemia, hypertension, Wilm's tumor s/p left nephrectomy and recent LUE fistula placement seen in office for concern for left big toe open wound/infection and abnormal stress test. which was performed in the outpatient setting. He denied any symptoms of chest pain, palpitations, or dizziness. He reported he has history of dyspnea on exertion that was worse a few weeks ago when he briefly was on metoprolol and sob improved after he stopped it.He was advised to present for admission for fluid retention and non healing foot infection found to have elevated troponin in ed for first time. - Past Medical History Cardio/Vascular: Yes: HTN, Hyperlipdemia Renal/: Yes: Renal Inusuff, Other (wilms tumor) Musculoskeletal: Yes: Other (poorly healed right ankle fracture, +grade 1-2 wound plantar left hallux, +hallux limitus left) Endocrine: Yes: Diabetes Mellitus - Past Surgical History Past Surgical History: Yes: Appendectomy, AV Fistula/Graft, Nephrectomy - Alcohol/Substance Use Hx Alcohol Use: No - Smoking History Smoking history: Never smoked Have you smoked in the past 12 months: No Aproximately how many cigarettes per day: 0 - Social History ADL: Independent Home Medications - Allergies Allergies/Adverse Reactions: Allergies Allergy/AdvReac Type Severity Reaction Status Date / Time Iodinated Contrast- Oral and Allergy Intermediate Hives Verified 05/23/18 09:26 IV Dye - Home Medications Home Medications: Ambulatory Orders Aspirin [Ecotrin] 81 mg PO DAILY 09/03/15 Cyanocobalamin [Vitamin B12 -] 1,000 mcg PO DAILY 03/15/18 Atorvastatin Ca [Lipitor] 20 mg PO DAILY 04/30/18 Fish Oil/Borage/Flax/Om3,6,9 1 [[place] 3-6-9 Complex Softgel] 1 each PO DAILY Insulin (Levemir) [Levemir Vial] 20 units SQ BID 04/30/18 Amlodipine Besylate [Norvasc -] 10 mg PO DAILY 05/23/18 Hydralazine HCl 10 mg PO TID 05/23/18 Insulin Sliding Scale [Novolog Vial Sliding Scale -] 1 vial SQ ASDIR PRN Review of Systems - Review of Systems Constitutional: reports: Weakness Eyes: reports: No Symptoms HENT: reports: No Symptoms Neck: reports: No Symptoms Cardiovascular: reports: Shortness of Breath Respiratory: reports: Exercise Intolerance, SOB on Exertion Gastrointestinal: reports: Constipation Genitourinary: reports: No Symptoms Breasts: reports: No Symptoms Reported Musculoskeletal: reports: Muscle Pain, Muscle Cramps, Muscle Weakness Neurological: reports: Numbness, Weakness Endocrine: reports: Unexplained Weight Gain Physical Exam Vital Signs: Vital Signs Temperature 98.1 F 06/14/18 21:00 Pulse Rate 98 H 06/14/18 21:00 Respiratory Rate 20 06/14/18 21:00 Blood Pressure 154/88 06/14/18 21:00 O2 Sat by Pulse Oximetry (%) 95 06/14/18 20:24 Constitutional: Yes: Calm Eyes: Yes: EOM Intact HENT: Yes: Normocephalic Neck: Yes: Trachea Midline Cardiovascular: Yes: Tachycardia Respiratory: Yes: CTA Bilaterally Gastrointestinal: Yes: Normal Bowel Sounds ...Rectal Exam: Yes: Deferred Breast(s): Yes: WNL Musculoskeletal: Yes: Muscle Pain, Muscle Weakness Extremities: Yes: Delayed Capillary Refill Edema: Yes Edema: LLE: 2+, RLE: 2+ Integumentary: Yes: Onychomycosis, Venous Stasis Changes Wound/Incision: Yes: Well Approximated, Draining Neurological: Yes: Numbness, Tingling, Weakness Labs: CBC, BMP 06/14/18 07:55 06/13/18 05:30 Problem List - Problems (1) Type 2 diabetes mellitus with diabetic chronic kidney disease Code(s): E11.22 - TYPE 2 DIABETES MELLITUS W DIABETIC CHRONIC KIDNEY DISEASE (2) Cardiomyopathy Code(s): I42.9 - CARDIOMYOPATHY, UNSPECIFIED (3) D-dimer, elevated Code(s): R79.89 - OTHER SPECIFIED ABNORMAL FINDINGS OF BLOOD CHEMISTRY (4) Dyspnea Code(s): R06.00 - DYSPNEA, UNSPECIFIED (5) Elevated d-dimer Code(s): R79.89 - OTHER SPECIFIED ABNORMAL FINDINGS OF BLOOD CHEMISTRY (6) Elevated troponin Code(s): R74.8 - ABNORMAL LEVELS OF OTHER SERUM ENZYMES (7) NSTEMI (non-ST elevated myocardial infarction) Code(s): I21.4 - NON-ST ELEVATION (NSTEMI) MYOCARDIAL INFARCTION (8) Pulmonary hypertension Code(s): I27.20 - PULMONARY HYPERTENSION, UNSPECIFIED (9) Wound, open, toe Code(s): S91.109A - UNSP OPEN WOUND OF UNSP TOE(S) W/O DAMAGE TO NAIL, INIT Assessment/Plan Current Active Problems Cardiomyopathy (Acute) D-dimer, elevated (Acute) Dyspnea (Acute) Elevated d-dimer (Acute) Elevated troponin (Acute) NSTEMI (non-ST elevated myocardial infarction) (Acute) Pulmonary hypertension (Acute) Wound, open, toe (Acute) diabetes mellitus hyperglycemia Abnormal Lab Results 06/14/18 06/14/18 06/14/18 07:55 07:55 07:55 RBC 3.89 L Hgb 10.9 L Hct 32.8 L PTT (Actin FS) Hemoglobin A1c % 6.4 H CK-MB (CK-2) 6.1 H Troponin I 0.34 H 06/14/18 06/14/18 07:55 19:27 RBC Hgb Hct PTT (Actin FS) 39.0 H 81.5 H Hemoglobin A1c % CK-MB (CK-2) Troponin I Laboratory Results - last 24 hr 06/14/18 06/14/18 06/14/18 06:19 07:55 07:55 WBC RBC Hgb Hct MCV MCH MCHC RDW Plt Count MPV PTT (Actin FS) POC Glucometer 100 Hemoglobin A1c % 6.4 H Creatine Kinase 157 Creatine Kinase Index 3.8 CK-MB (CK-2) 6.1 H Troponin I 0.34 H 06/14/18 06/14/18 06/14/18 07:55 07:55 17:12 WBC 7.1 RBC 3.89 L Hgb 10.9 L Hct 32.8 L MCV 84.2 MCH 28.1 MCHC 33.3 RDW 14.6 Plt Count 211 MPV 8.1 PTT (Actin FS) 39.0 H POC Glucometer 207 Hemoglobin A1c % Creatine Kinase Creatine Kinase Index CK-MB (CK-2) Troponin I 06/14/18 06/14/18 19:27 22:14 WBC RBC Hgb Hct MCV MCH MCHC RDW Plt Count MPV PTT (Actin FS) 81.5 H POC Glucometer 176 Hemoglobin A1c % Creatine Kinase Creatine Kinase Index CK-MB (CK-2) Troponin I Laboratory Tests 06/14/18 06/14/18 06/14/18 06:19 07:55 17:12 POC Glucometer 100 207 Hemoglobin A1c % 6.4 H 06/14/18 22:14 POC Glucometer 176 Hemoglobin A1c % plan: bgm qid novolog scale levemir 20units sq bid continue as planned for renal follow up cardiac workup
[2018-06-15] MEDS: hydrALAZINE HCL 25 MG TABLET (FP) PO SCH ×3 (06:14→21:21)
[2018-06-15] MEDS: INSULIN SLIDING SCALE (NOVOLOG) 1 VIAL SQ SCH ×4 (06:15→21:36)
[2018-06-15] MEDS: INSULIN (LEVEMIR) 100 UNITS/ML UNITS SQ SCH ×2 (06:15→21:35)
[2018-06-15 07:54] LABS: HEMATOCRIT 32.4 % (35.4-49); HEMOGLOBIN 10.7 GM/dL (11.7-16.9); MCH 28.2 pg (25.7-33.7); MCHC 33.1 g/dl (32.0-35.9); MEAN PLT VOLUME 7.9 fl (7.5-11.1); PLATELET COUNT 213 K/MM3 (134-434); RBC 3.81 M/mm3 (4.00-5.60); RDW 14.6 % (11.9-15.9); WHITE BLOOD COUNT 6.4 K/mm3 (4.0-10.0)
[2018-06-15] MEDS: amLODIPine BESYLATE 10 MG TABLET (FP) PO SCH ×2 (08:36→09:04)
[2018-06-15] MEDS: ASPIRIN COATED 81 MG TABLET.EC PO SCH ×2 (08:36→09:04)
[2018-06-15] MEDS: CYANOCOBALAMIN 1,000 MCG TABLET (FP) PO SCH ×2 (08:36→09:04)
[2018-06-15] MEDS: CEFAZOLIN 1 GM/D5W 1 GM/50 ML BAG IVPB SCH ×3 (08:37→21:20)
[2018-06-15] MEDS: COLLAGENASE CLOSTRIDIUM HIST. 30 GRAMS TUBE TP SCH (09:04)
[2018-06-15 09:22] LABS: ALBUMIN 2.8 g/dl (3.4-5.0); ALK PHOS 130 U/L (45-117); ANION GAP 6 MMOL/L (8-16); BILIRUBIN,TOTAL 0.3 mg/dL (0.2-1); BLOOD UREA NITROGEN 53 mg/dL (7-18); CALCIUM 8.7 mg/dL (8.5-10.1); CHLORIDE 112 mmol/L (98-107); CO2 21 mmol/L (21-32); CREATININE 4.7 mg/dL (0.55-1.3); GLUCOSE,RANDOM 120 mg/dL (74-106); POTASSIUM 5.2 mmol/L (3.5-5.1); SGOT/AST 19 U/L (15-37); SGPT/ALT 15 U/L (13-61); SODIUM 140 mmol/L (136-145); TOT PROT 6.3 g/dl (6.4-8.2)
--- NOTE | 2018-06-15 10:14 | PN ---
Progress Note (short form) - Note Progress Note: follow up left big toe. vss, 99.1 +improved cellulitis, +granulation, -drainage, -om on mri chronic wound continue care as per team. continue santyl. will follow.
--- NOTE | 2018-06-15 10:53 | PN ---
Progress Note, Physician Chief Complaint: feels more SOB History of Present Illness: weight is up - Current Medication List Current Medications: Active Medications Amlodipine Besylate (Norvasc -) 10 mg PO DAILY [facility] Last Admin: 06/15/18 09:04 Dose: Not Given Aspirin (Ecotrin -) 81 mg PO DAILY [facility] Last Admin: 06/15/18 09:04 Dose: Not Given Atorvastatin Calcium (Lipitor -) 20 mg PO HS [facility] Last Admin: 06/14/18 22:12 Dose: 20 mg Collagenase (Santyl -) 1 applic TP DAILY [facility]; Protocol Last Admin: 06/15/18 09:04 Dose: 1 applic Cyanocobalamin (Vitamin B12 -) 1,000 mcg PO DAILY [facility] Last Admin: 06/15/18 09:04 Dose: Not Given Hydralazine HCl (Apresoline -) 25 mg PO TID [facility] Last Admin: 06/15/18 06:14 Dose: 25 mg Heparin Sodium (Porcine) 25, (000 unit/ Sodium Chloride) 500 mls @ 20 mls/hr IV TITR [facility]; Protocol Last Titration: 06/14/18 20:49 Dose: 1,200 unit/hr, 24 mls/hr Cefazolin Sodium (Ancef 1 Gm Premixed Ivpb -) 1 gm in 50 mls @ 100 mls/hr IVPB BID [facility] Last Admin: 06/15/18 09:04 Dose: Not Given Insulin Aspart (Novolog Vial Sliding Scale -) 1 vial SQ ACHS [facility]; Protocol Last Admin: 06/15/18 06:15 Dose: Not Given Insulin Detemir (Levemir Vial) 20 units SQ BID@0700,2200 [facility] Last Admin: 06/15/18 06:15 Dose: 20 units - Objective Vital Signs: Vital Signs Temperature 99.1 F 06/15/18 05:00 Pulse Rate 99 H 06/15/18 05:00 Respiratory Rate 20 06/15/18 05:00 Blood Pressure 153/86 06/15/18 05:00 O2 Sat by Pulse Oximetry (%) 95 06/14/18 20:24 Constitutional: Yes: Calm Cardiovascular: Yes: Pulse Irregular Respiratory: Yes: Other (decreased breath sounds bases) Gastrointestinal: Yes: Soft Edema: Yes Edema: LLE: 1+, RLE: 1+ Neurological: Yes: Alert Labs: CBC, BMP 06/15/18 06:30 06/15/18 06:30 INR, PTT INR 1.14 (0.83-1.09) H 06/12/18 23:30 Laboratory Tests 06/15/18 06/15/18 06/15/18 06:30 06:30 06:30 WBC 6.4 Hgb 10.7 L Plt Count 213 PTT (Actin FS) 66.2 H Sodium 140 Potassium 5.2 H BUN 53 H Creatinine 4.7 H AST 19 Alkaline Phosphatase 130 H - ....Imaging EKG: Image Reviewed (Sinus tach) Assessment/Plan Assessment/Plan 1. Elevated troponin, abnormal stress test/Dyspnea: - trop 0.47, EKG no ischemic changes, history less consistent with ACS - recent mibi 04/2018 showed EF 30% and small area of mild ischemia. Images reviewed yesterday, mild apical ischemia with EF 30% range. - asymptomatic currently, however with elevated trop as above. Angiogram deferred given ESRD not yet on HD and contrast allergy - continue aspirin, statin - echo technically difficult, overall at least mildly reduced LV fx - concern for foot infection - may be 2/2 demand ischemia - V/Q scan negative. 2. Cardiomyopathy: - EF 30% on mibi - echo confrims at least mild LV dysfx - no bb given history of worsening dyspnea and wheezing with metoprolol, no MERRILL/ ARB given CKD -Medical management of underlying possible CAD as above. -Started on hydralazine yesterday for HTN, can add low dose nitrate. -Weight up, feels more SOB -CXR today -Consider dose IV Lasix 3. L toe ulcer: - manage per podiatry, vascular 4. HTN: - stable, continue home meds 5. DM: - manage per primary, endo 6. CKD: - nephrology consulted - recent AV fistula placement 7.HLD: - cont statin
[2018-06-15] MEDS: ISOSORBIDE DINITRATE 5 MG TABLET PO SCH ×2 (11:03→17:10)
--- NOTE | 2018-06-15 12:33 | PN ---
Progress Note, Physician History of Present Illness: PULMONARY ALERT,NO DITRESS,COMFORTABLE AT REST,-CP. SLEEP SCREEN 26.5 C/W SEVERE OSAS - Current Medication List Current Medications: Active Medications Amlodipine Besylate (Norvasc -) 10 mg PO DAILY [facility] Last Admin: 06/15/18 09:04 Dose: Not Given Aspirin (Ecotrin -) 81 mg PO DAILY [facility] Last Admin: 06/15/18 09:04 Dose: Not Given Atorvastatin Calcium (Lipitor -) 20 mg PO HS [facility] Last Admin: 06/14/18 22:12 Dose: 20 mg Collagenase (Santyl -) 1 applic TP DAILY [facility]; Protocol Last Admin: 06/15/18 09:04 Dose: 1 applic Cyanocobalamin (Vitamin B12 -) 1,000 mcg PO DAILY [facility] Last Admin: 06/15/18 09:04 Dose: Not Given Hydralazine HCl (Apresoline -) 25 mg PO TID [facility] Last Admin: 06/15/18 06:14 Dose: 25 mg Heparin Sodium (Porcine) 25, (000 unit/ Sodium Chloride) 500 mls @ 20 mls/hr IV TITR [facility]; Protocol Last Titration: 06/14/18 20:49 Dose: 1,200 unit/hr, 24 mls/hr Cefazolin Sodium (Ancef 1 Gm Premixed Ivpb -) 1 gm in 50 mls @ 100 mls/hr IVPB BID [facility] Last Admin: 06/15/18 09:04 Dose: Not Given Insulin Aspart (Novolog Vial Sliding Scale -) 1 vial SQ ACHS [facility]; Protocol Last Admin: 06/15/18 06:15 Dose: Not Given Insulin Detemir (Levemir Vial) 20 units SQ BID@0700,2200 [facility] Last Admin: 06/15/18 06:15 Dose: 20 units Isosorbide Dinitrate (Isordil -) 5 mg PO BIDISORDIL [facility] - Objective Vital Signs: Vital Signs Temperature 99.1 F 06/15/18 05:00 Pulse Rate 99 H 06/15/18 05:00 Respiratory Rate 20 06/15/18 05:00 Blood Pressure 153/86 06/15/18 05:00 O2 Sat by Pulse Oximetry (%) 95 06/14/18 20:24 Constitutional: Yes: Well Nourished, Calm, Obese Eyes: Yes: WNL HENT: Yes: WNL Neck: Yes: WNL Cardiovascular: Yes: Pulse Irregular, S1, S2 Respiratory: Yes: Diminished Gastrointestinal: Yes: Normal Bowel Sounds, Soft Extremities: Yes: WNL Edema: Yes Labs: CBC, BMP 06/15/18 06:30 06/15/18 06:30 INR, PTT INR 1.14 (0.83-1.09) H 06/12/18 23:30 - ....Imaging Chest X-ray: Report Reviewed, Image Reviewed Problem List - Problems (1) Dyspnea Code(s): R06.00 - DYSPNEA, UNSPECIFIED (2) D-dimer, elevated Code(s): R79.89 - OTHER SPECIFIED ABNORMAL FINDINGS OF BLOOD CHEMISTRY (3) Elevated troponin Code(s): R74.8 - ABNORMAL LEVELS OF OTHER SERUM ENZYMES (4) Wound, open, toe Code(s): S91.109A - UNSP OPEN WOUND OF UNSP TOE(S) W/O DAMAGE TO NAIL, INIT (5) Acute kidney injury superimposed on chronic kidney disease Code(s): N17.9 - ACUTE KIDNEY FAILURE, UNSPECIFIED; N18.9 - CHRONIC KIDNEY DISEASE, UNSPECIFIED (6) CKD (chronic kidney disease) Code(s): N18.9 - CHRONIC KIDNEY DISEASE, UNSPECIFIED (7) HTN (hypertension) Code(s): I10 - ESSENTIAL (PRIMARY) HYPERTENSION Qualifiers: Hypertension type: essential hypertension Qualified Code(s): I10 - Essential (primary) hypertension (8) Hypercholesterolemia Code(s): E78.0 - PURE HYPERCHOLESTEROLEMIA * DO NOT USE * (9) Troponin I above reference range Code(s): R74.8 - ABNORMAL LEVELS OF OTHER SERUM ENZYMES (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 UNDERLYING MILD OBSTRUCTIVE AIRWAY DISEASE SYMPTOMS EXACERBATED BY BETA-BLOCKERS,+ CARDIOMYOPATHY CKD + TROPONIN HTN DM H/O WILMS TUMOR S/P L NEPHRECTOMY PULMONARY HTN REBECCA LEFT FOOT ULCER PLAN LASIX PFTS OUTPATIENT STRICT I+O HEPARIN MONITOR LYTES,RENAL FUNCTION FORMAL SLEEP STUDIES OUTPATIENT DAILY WT DR MCDANIEL Problem List - Problems (1) Dyspnea Code(s): R06.00 - DYSPNEA, UNSPECIFIED (2) D-dimer, elevated Code(s): R79.89 - OTHER SPECIFIED ABNORMAL FINDINGS OF BLOOD CHEMISTRY (3) Elevated troponin Code(s): R74.8 - ABNORMAL LEVELS OF OTHER SERUM ENZYMES (4) Wound, open, toe Code(s): S91.109A - UNSP OPEN WOUND OF UNSP TOE(S) W/O DAMAGE TO NAIL, INIT (5) Acute kidney injury superimposed on chronic kidney disease Code(s): N17.9 - ACUTE KIDNEY FAILURE, UNSPECIFIED; N18.9 - CHRONIC KIDNEY DISEASE, UNSPECIFIED (6) CKD (chronic kidney disease) Code(s): N18.9 - CHRONIC KIDNEY DISEASE, UNSPECIFIED (7) HTN (hypertension) Code(s): I10 - ESSENTIAL (PRIMARY) HYPERTENSION Qualifiers: Hypertension type: essential hypertension Qualified Code(s): I10 - Essential (primary) hypertension (8) Hypercholesterolemia Code(s): E78.0 - PURE HYPERCHOLESTEROLEMIA * DO NOT USE * (9) Troponin I above reference range Code(s): R74.8 - ABNORMAL LEVELS OF OTHER SERUM ENZYMES (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
[2018-06-15] MEDS ORDERED: PT OWN MED DRAWER 7, Y5N ONE ×2 (14:03→17:50)
--- NOTE | 2018-06-15 14:39 | PN ---
Progress Note (short form) - Note Progress Note: still some SOB no fevers Vital Signs Period Temp Pulse Resp BP Sys/Barrera Pulse Ox Last 24 Hr 98.1 F-99.1 F 93-99 20-20 143-161/82-88 95 cor-rrr llungs decreased bs at bases abd soft,nt ext less erythema and warmth LLE- dry ulcer on big toe CBC, BMP 06/15/18 06:30 06/15/18 06:30 Microbiology 06/12/18 21:00 Blood - Peripheral Venous Blood Culture - Preliminary NO GROWTH OBTAINED AFTER 48 HOURS, INCUBATION TO CONTINUE FOR 3 DAYS. 06/13/18 19:00 Blood - Peripheral Venous Blood Culture - Preliminary NO GROWTH OBTAINED AFTER 24 HOURS, INCUBATION TO CONTINUE FOR 4 DAYS. 06/13/18 19:30 Blood - Peripheral Venous Blood Culture - Preliminary NO GROWTH OBTAINED AFTER 24 HOURS, INCUBATION TO CONTINUE FOR 4 DAYS. MRI-no osteomyelitis a/p cefazolin for cellulitis of the LLE-improved, can switch to po keflex when ready to go home history of DM/CKD CAD/cardiomyopathy please call back if needed
--- NOTE | 2018-06-15 15:14 | PN ---
Progress Note (short form) - Note Progress Note: covering dr felton 1. CKD 2. elevated cardiac enzymes 3. DM 4. chest pain 5. hyperlipidemia 6. HTN 7. hx of Wilms tumor, s/p left nephrectomy Current Medications Amlodipine Besylate (Norvasc -) 10 mg PO DAILY [facility] Last Admin: 06/15/18 09:04 Dose: Not Given Aspirin (Ecotrin -) 81 mg PO DAILY [facility] Last Admin: 06/15/18 09:04 Dose: Not Given Atorvastatin Calcium (Lipitor -) 20 mg PO HS [facility] Last Admin: 06/14/18 22:12 Dose: 20 mg Collagenase (Santyl -) 1 applic TP DAILY [facility]; Protocol Last Admin: 06/15/18 09:04 Dose: 1 applic Cyanocobalamin (Vitamin B12 -) 1,000 mcg PO DAILY [facility] Last Admin: 06/15/18 09:04 Dose: Not Given Hydralazine HCl (Apresoline -) 25 mg PO TID [facility] Last Admin: 06/15/18 15:03 Dose: 25 mg Heparin Sodium (Porcine) 25, (000 unit/ Sodium Chloride) 500 mls @ 20 mls/hr IV TITR [facility]; Protocol Last Titration: 06/14/18 20:49 Dose: 1,200 unit/hr, 24 mls/hr Cefazolin Sodium (Ancef 1 Gm Premixed Ivpb -) 1 gm in 50 mls @ 100 mls/hr IVPB BID [facility] Last Admin: 06/15/18 09:04 Dose: Not Given Insulin Aspart (Novolog Vial Sliding Scale -) 1 vial SQ ACHS [facility]; Protocol Last Admin: 06/15/18 11:03 Dose: Not Given Insulin Detemir (Levemir Vial) 20 units SQ BID@0700,2200 [facility] Last Admin: 06/15/18 06:15 Dose: 20 units Isosorbide Dinitrate (Isordil -) 5 mg PO BIDISORDIL [facility] Last Admin: 06/15/18 15:03 Dose: 5 mg Last Vital Signs Temp Pulse Resp BP Pulse Ox 99.1 F 99 H 20 153/86 95 06/15/18 05:00 06/15/18 05:00 06/15/18 05:00 06/15/18 05:00 06/14/18 20:24 no complaints, says he gained weight in the hosp admssion weight recorded is by his reported- weight 229 no sob, 1 plus edema in lower ext Lungs clear Heart reg Abd soft nontender Ext trace to 1 + CBC, BMP 06/15/18 06:30 06/15/18 06:30 CBC, BMP 06/14/18 07:55 06/13/18 05:30 CKD stable i doubt much water retention or overload here no indication for diuretics Plan- follow bmp \
--- NOTE | 2018-06-15 15:40 | PN ---
Progress Note, Physician Chief Complaint: CKD Elevated Troponin PE History of Present Illness: Previous notes and events reviewed awake and alert NAD denies chest pain or SOB complain of weight gain - Current Medication List Current Medications: Active Medications Amlodipine Besylate (Norvasc -) 10 mg PO DAILY [facility] Last Admin: 06/15/18 09:04 Dose: Not Given Aspirin (Ecotrin -) 81 mg PO DAILY [facility] Last Admin: 06/15/18 09:04 Dose: Not Given Atorvastatin Calcium (Lipitor -) 20 mg PO HS [facility] Last Admin: 06/14/18 22:12 Dose: 20 mg Collagenase (Santyl -) 1 applic TP DAILY [facility]; Protocol Last Admin: 06/15/18 09:04 Dose: 1 applic Cyanocobalamin (Vitamin B12 -) 1,000 mcg PO DAILY [facility] Last Admin: 06/15/18 09:04 Dose: Not Given Hydralazine HCl (Apresoline -) 25 mg PO TID [facility] Last Admin: 06/15/18 15:03 Dose: 25 mg Heparin Sodium (Porcine) 25, (000 unit/ Sodium Chloride) 500 mls @ 20 mls/hr IV TITR [facility]; Protocol Last Titration: 06/14/18 20:49 Dose: 1,200 unit/hr, 24 mls/hr Cefazolin Sodium (Ancef 1 Gm Premixed Ivpb -) 1 gm in 50 mls @ 100 mls/hr IVPB BID [facility] Last Admin: 06/15/18 09:04 Dose: Not Given Insulin Aspart (Novolog Vial Sliding Scale -) 1 vial SQ ACHS [facility]; Protocol Last Admin: 06/15/18 11:03 Dose: Not Given Insulin Detemir (Levemir Vial) 20 units SQ BID@0700,2200 [facility] Last Admin: 06/15/18 06:15 Dose: 20 units Isosorbide Dinitrate (Isordil -) 5 mg PO BIDISORDIL [facility] Last Admin: 06/15/18 15:03 Dose: 5 mg - Objective Vital Signs: Vital Signs Temperature 99.1 F 06/15/18 05:00 Pulse Rate 99 H 06/15/18 05:00 Respiratory Rate 20 06/15/18 05:00 Blood Pressure 153/86 06/15/18 05:00 O2 Sat by Pulse Oximetry (%) 95 06/14/18 20:24 Constitutional: Yes: No Distress, Calm Eyes: Yes: Conjunctiva Clear HENT: Yes: Atraumatic Cardiovascular: Yes: Regular Rate and Rhythm Respiratory: Yes: Regular, CTA Bilaterally Gastrointestinal: Yes: Normal Bowel Sounds, Soft Musculoskeletal: Yes: WNL Extremities: Yes: WNL Edema: Yes Edema: LLE: 1+ Neurological: Yes: Alert, Oriented Psychiatric: Yes: Alert, Oriented Labs: CBC, BMP 06/15/18 06:30 06/15/18 06:30 INR, PTT INR 1.14 (0.83-1.09) H 06/12/18 23:30 Microbiology 06/12/18 21:00 Blood - Peripheral Venous Blood Culture - Preliminary NO GROWTH OBTAINED AFTER 48 HOURS, INCUBATION TO CONTINUE FOR 3 DAYS. 06/13/18 19:00 Blood - Peripheral Venous Blood Culture - Preliminary NO GROWTH OBTAINED AFTER 24 HOURS, INCUBATION TO CONTINUE FOR 4 DAYS. 06/13/18 19:30 Blood - Peripheral Venous Blood Culture - Preliminary NO GROWTH OBTAINED AFTER 24 HOURS, INCUBATION TO CONTINUE FOR 4 DAYS. Problem List - Problems (1) D-dimer, elevated Assessment/Plan: -VQ scan results reviewed Code(s): R79.89 - OTHER SPECIFIED ABNORMAL FINDINGS OF BLOOD CHEMISTRY (2) Elevated troponin Assessment/Plan: -troponin 0.34 -cardiology on board -heparin drip--spoke with cardiology plan to start oral AC tomorrow morning Code(s): R74.8 - ABNORMAL LEVELS OF OTHER SERUM ENZYMES (3) Wound, open, toe Assessment/Plan: -podiatry on board -apply Santyl -MRI shows no evidence of osteomyelitis Code(s): S91.109A - UNSP OPEN WOUND OF UNSP TOE(S) W/O DAMAGE TO NAIL, INIT (4) CKD (chronic kidney disease) Assessment/Plan: -BUN/Cr 57/4.7 -renal on board -monitor renal function daily Code(s): N18.9 - CHRONIC KIDNEY DISEASE, UNSPECIFIED (5) HTN (hypertension) Assessment/Plan: -continue Amlodipine and Hydralazine Code(s): I10 - ESSENTIAL (PRIMARY) HYPERTENSION Qualifiers: Hypertension type: essential hypertension Qualified Code(s): I10 - Essential (primary) hypertension (6) Hypercholesterolemia Assessment/Plan: -continue Atorvastatin Code(s): E78.0 - PURE HYPERCHOLESTEROLEMIA * DO NOT USE * (7) Type 1 diabetes mellitus with diabetic nephropathy Assessment/Plan: -BGM ACHS -Levemir + ISS -diabetic diet -Hg A1c 6.4% Code(s): E10.21 - TYPE 1 DIABETES MELLITUS WITH DIABETIC NEPHROPATHY Assessment/Plan see problem list dvt ppx
[2018-06-15] MEDS: HEPARIN - 25,000 UNIT in SODIUM CHLORIDE 495 ML IV SCH (17:08)
[2018-06-15] MEDS: ATORVASTATIN CA 20 MG TABLET (FP) PO SCH (21:21)
[2018-06-16] MEDS: INSULIN (LEVEMIR) 100 UNITS/ML UNITS SQ SCH ×2 (06:34→21:23)
[2018-06-16] MEDS: INSULIN SLIDING SCALE (NOVOLOG) 1 VIAL SQ SCH ×4 (06:34→21:30)
[2018-06-16] MEDS: hydrALAZINE HCL 25 MG TABLET (FP) PO SCH ×3 (06:34→21:23)
[2018-06-16 07:08] LABS: HEMOGLOBIN 10.8 GM/dL (11.7-16.9); MCH 28.6 pg (25.7-33.7); MCHC 33.8 g/dl (32.0-35.9); MEAN CELL VOLUME 84.5 fl (80-96); MEAN PLT VOLUME 7.7 fl (7.5-11.1); PLATELET COUNT 229 K/MM3 (134-434); RBC 3.78 M/mm3 (4.00-5.60); WHITE BLOOD COUNT 6.2 K/mm3 (4.0-10.0)
[2018-06-16 07:48] LABS: BLOOD UREA NITROGEN 52 mg/dL (7-18); CREATININE 4.6 mg/dL (0.55-1.3); SODIUM 139 mmol/L (136-145)
[2018-06-16 07:49] LABS: ALBUMIN 2.8 g/dl (3.4-5.0); ANION GAP 5 MMOL/L (8-16); BILIRUBIN,TOTAL 0.3 mg/dL (0.2-1); CALCIUM 8.6 mg/dL (8.5-10.1); CHLORIDE 112 mmol/L (98-107); CO2 22 mmol/L (21-32); POTASSIUM 5.4 mmol/L (3.5-5.1); SGOT/AST 19 U/L (15-37); SGPT/ALT 13 U/L (13-61); TOT PROT 6.7 g/dl (6.4-8.2)
[2018-06-16 07:50] LABS: ALK PHOS 135 U/L (45-117); GLUCOSE,RANDOM 134 mg/dL (74-106)
[2018-06-16] MEDS ORDERED: PT OWN MED DRAWER 7, Y5N ONE (08:23)
--- NOTE | 2018-06-16 09:20 | PN ---
Progress Note, Physician Chief Complaint: Denies cp or SOB TELE: NSR - Current Medication List Current Medications: Active Medications Amlodipine Besylate (Norvasc -) 10 mg PO DAILY [facility] Last Admin: 06/15/18 09:04 Dose: Not Given Aspirin (Ecotrin -) 81 mg PO DAILY [facility] Last Admin: 06/15/18 09:04 Dose: Not Given Atorvastatin Calcium (Lipitor -) 20 mg PO HS [facility] Last Admin: 06/15/18 21:21 Dose: 20 mg Collagenase (Santyl -) 1 applic TP DAILY [facility]; Protocol Last Admin: 06/15/18 09:04 Dose: 1 applic Cyanocobalamin (Vitamin B12 -) 1,000 mcg PO DAILY [facility] Last Admin: 06/15/18 09:04 Dose: Not Given Hydralazine HCl (Apresoline -) 25 mg PO TID [facility] Last Admin: 06/16/18 06:34 Dose: 25 mg Heparin Sodium (Porcine) 25, (000 unit/ Sodium Chloride) 500 mls @ 20 mls/hr IV TITR [facility]; Protocol Last Admin: 06/15/18 17:08 Dose: 1,200 unit/hr, 24 mls/hr Cefazolin Sodium (Ancef 1 Gm Premixed Ivpb -) 1 gm in 50 mls @ 100 mls/hr IVPB BID [facility] Last Admin: 06/15/18 21:20 Dose: 100 mls/hr Insulin Aspart (Novolog Vial Sliding Scale -) 1 vial SQ ACHS [facility]; Protocol Last Admin: 06/16/18 06:34 Dose: Not Given Insulin Detemir (Levemir Vial) 20 units SQ BID@0700,2200 [facility] Last Admin: 06/16/18 06:34 Dose: 20 units Isosorbide Dinitrate (Isordil -) 5 mg PO BIDISORDIL [facility] Last Admin: 06/15/18 17:10 Dose: 5 mg - Objective Vital Signs: Vital Signs Temperature 98.9 F 06/16/18 05:00 Pulse Rate 95 H 06/16/18 05:00 Respiratory Rate 20 06/16/18 05:00 Blood Pressure 135/81 06/16/18 05:00 O2 Sat by Pulse Oximetry (%) 98 06/15/18 20:16 Constitutional: Yes: No Distress Cardiovascular: Yes: Regular Rate and Rhythm Respiratory: Yes: CTA Bilaterally Gastrointestinal: Yes: Soft Edema: Yes Edema: LLE: 1+, RLE: 1+ Neurological: Yes: Alert, Oriented Labs: CBC, BMP 06/16/18 05:30 06/16/18 05:30 INR, PTT INR 1.14 (0.83-1.09) H 06/12/18 23:30 Laboratory Tests 06/16/18 06/16/18 06/16/18 05:30 05:30 05:30 WBC 6.2 Hgb 10.8 L Plt Count 229 PTT (Actin FS) 58.8 H Sodium 139 Potassium 5.4 H BUN 52 H Creatinine 4.6 H - ....Imaging EKG: Image Reviewed Assessment/Plan 1. Elevated troponin, abnormal stress test/Dyspnea: - trop 0.47, EKG no ischemic changes, history less consistent with ACS - recent mibi 04/2018 showed EF 30% and small area of mild ischemia. Images reviewed , mild apical ischemia with EF 30% range. - asymptomatic currently, however with elevated trop as above. Angiogram deferred given ESRD not yet on HD and contrast allergy - continue aspirin, statin - echo technically difficult, overall at least mildly reduced LV fx - concern for foot infection - may be 2/2 demand ischemia - V/Q scan negative for PE -Can d/c IV heparin gtts. 2. Cardiomyopathy: - EF 30% on mibi - echo confrims at least mild LV dysfx - no bb given history of worsening dyspnea and wheezing with metoprolol, no MERRILL/ ARB given CKD -Medical management of underlying possible CAD as above. -Started on hydralazine and low dose nitrate over weekend -CXR yesterday with improved congestive changes 3. L toe ulcer: - manage per podiatry, vascular 4. HTN: - stable, continue home meds 5. DM: - manage per primary, endo 6. CKD: - nephrology consulted - recent AV fistula placement 7.HLD: - cont statin
[2018-06-16] MEDS: CYANOCOBALAMIN 1,000 MCG TABLET (FP) PO SCH (10:09)
[2018-06-16] MEDS: amLODIPine BESYLATE 10 MG TABLET (FP) PO SCH (10:10)
[2018-06-16] MEDS: CEFAZOLIN 1 GM/D5W 1 GM/50 ML BAG IVPB SCH ×2 (10:10→21:23)
[2018-06-16] MEDS: ISOSORBIDE DINITRATE 5 MG TABLET PO SCH ×2 (10:10→17:24)
[2018-06-16] MEDS: ASPIRIN COATED 81 MG TABLET.EC PO SCH (10:10)
[2018-06-16] MEDS: COLLAGENASE CLOSTRIDIUM HIST. 30 GRAMS TUBE TP SCH (10:19)
--- NOTE | 2018-06-16 10:27 | PN ---
Progress Note, Physician History of Present Illness: pulmonary alert,comfortable,-sob,-cp - Current Medication List Current Medications: Active Medications Amlodipine Besylate (Norvasc -) 10 mg PO DAILY [facility] Last Admin: 06/16/18 10:10 Dose: 10 mg Aspirin (Ecotrin -) 81 mg PO DAILY [facility] Last Admin: 06/16/18 10:10 Dose: 81 mg Atorvastatin Calcium (Lipitor -) 20 mg PO HS [facility] Last Admin: 06/15/18 21:21 Dose: 20 mg Collagenase (Santyl -) 1 applic TP DAILY [facility]; Protocol Last Admin: 06/16/18 10:19 Dose: 1 applic Cyanocobalamin (Vitamin B12 -) 1,000 mcg PO DAILY [facility] Last Admin: 06/16/18 10:09 Dose: 1,000 mcg Hydralazine HCl (Apresoline -) 25 mg PO TID [facility] Last Admin: 06/16/18 06:34 Dose: 25 mg Cefazolin Sodium (Ancef 1 Gm Premixed Ivpb -) 1 gm in 50 mls @ 100 mls/hr IVPB BID [facility] Last Admin: 06/16/18 10:10 Dose: 100 mls/hr Insulin Aspart (Novolog Vial Sliding Scale -) 1 vial SQ ACHS [facility]; Protocol Last Admin: 06/16/18 06:34 Dose: Not Given Insulin Detemir (Levemir Vial) 20 units SQ BID@0700,2200 [facility] Last Admin: 06/16/18 06:34 Dose: 20 units Isosorbide Dinitrate (Isordil -) 5 mg PO BIDISORDIL [facility] Last Admin: 06/16/18 10:10 Dose: 5 mg - Objective Vital Signs: Vital Signs Temperature 98.9 F 06/16/18 05:00 Pulse Rate 95 H 06/16/18 05:00 Respiratory Rate 20 06/16/18 05:00 Blood Pressure 135/81 06/16/18 05:00 O2 Sat by Pulse Oximetry (%) 98 06/15/18 20:16 Constitutional: Yes: Well Nourished, Calm Eyes: Yes: WNL HENT: Yes: WNL Neck: Yes: WNL Cardiovascular: Yes: Regular Rate and Rhythm, S1, S2 Respiratory: Yes: Diminished Gastrointestinal: Yes: Normal Bowel Sounds, Soft Extremities: Yes: WNL Edema: No Labs: CBC, BMP 06/16/18 05:30 06/16/18 05:30 INR, PTT INR 1.14 (0.83-1.09) H 06/12/18 23:30 Problem List - Problems (1) Dyspnea Code(s): R06.00 - DYSPNEA, UNSPECIFIED (2) D-dimer, elevated Code(s): R79.89 - OTHER SPECIFIED ABNORMAL FINDINGS OF BLOOD CHEMISTRY (3) Elevated troponin Code(s): R74.8 - ABNORMAL LEVELS OF OTHER SERUM ENZYMES (4) Wound, open, toe Code(s): S91.109A - UNSP OPEN WOUND OF UNSP TOE(S) W/O DAMAGE TO NAIL, INIT (5) Acute kidney injury superimposed on chronic kidney disease Code(s): N17.9 - ACUTE KIDNEY FAILURE, UNSPECIFIED; N18.9 - CHRONIC KIDNEY DISEASE, UNSPECIFIED (6) CKD (chronic kidney disease) Code(s): N18.9 - CHRONIC KIDNEY DISEASE, UNSPECIFIED (7) HTN (hypertension) Code(s): I10 - ESSENTIAL (PRIMARY) HYPERTENSION Qualifiers: Hypertension type: essential hypertension Qualified Code(s): I10 - Essential (primary) hypertension (8) Hypercholesterolemia Code(s): E78.0 - PURE HYPERCHOLESTEROLEMIA * DO NOT USE * (9) Troponin I above reference range Code(s): R74.8 - ABNORMAL LEVELS OF OTHER SERUM ENZYMES (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 UNDERLYING MILD OBSTRUCTIVE AIRWAY DISEASE SYMPTOMS EXACERBATED BY BETA-BLOCKERS,+ CARDIOMYOPATHY CKD + TROPONIN HTN DM H/O WILMS TUMOR S/P L NEPHRECTOMY PULMONARY HTN REBECCA AHI 26.5 ON SLEEP SCREEN LEFT FOOT ULCER PLAN PFTS OUTPATIENT MONITOR LYTES,RENAL FUNCTION FORMAL SLEEP STUDIES OUTPATIENT DAILY WT DVT PROPHYLAXIS DR MCDANIEL Problem List - Problems (1) Dyspnea Code(s): R06.00 - DYSPNEA, UNSPECIFIED (2) D-dimer, elevated Code(s): R79.89 - OTHER SPECIFIED ABNORMAL FINDINGS OF BLOOD CHEMISTRY (3) Elevated troponin Code(s): R74.8 - ABNORMAL LEVELS OF OTHER SERUM ENZYMES (4) Wound, open, toe Code(s): S91.109A - UNSP OPEN WOUND OF UNSP TOE(S) W/O DAMAGE TO NAIL, INIT (5) Acute kidney injury superimposed on chronic kidney disease Code(s): N17.9 - ACUTE KIDNEY FAILURE, UNSPECIFIED; N18.9 - CHRONIC KIDNEY DISEASE, UNSPECIFIED (6) CKD (chronic kidney disease) Code(s): N18.9 - CHRONIC KIDNEY DISEASE, UNSPECIFIED (7) HTN (hypertension) Code(s): I10 - ESSENTIAL (PRIMARY) HYPERTENSION Qualifiers: Hypertension type: essential hypertension Qualified Code(s): I10 - Essential (primary) hypertension (8) Hypercholesterolemia Code(s): E78.0 - PURE HYPERCHOLESTEROLEMIA * DO NOT USE * (9) Troponin I above reference range Code(s): R74.8 - ABNORMAL LEVELS OF OTHER SERUM ENZYMES (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
[2018-06-16] MEDS ORDERED: FUROSEMIDE 40 MG/4 ML INJECTABLE VIAL IVPUSH ONE (11:21)
--- NOTE | 2018-06-16 11:28 | PN ---
Progress Note, Physician Chief Complaint: complainig of weight gain - Current Medication List Current Medications: Active Medications Amlodipine Besylate (Norvasc -) 10 mg PO DAILY [facility] Last Admin: 06/16/18 10:10 Dose: 10 mg Aspirin (Ecotrin -) 81 mg PO DAILY [facility] Last Admin: 06/16/18 10:10 Dose: 81 mg Atorvastatin Calcium (Lipitor -) 20 mg PO HS [facility] Last Admin: 06/15/18 21:21 Dose: 20 mg Collagenase (Santyl -) 1 applic TP DAILY [facility]; Protocol Last Admin: 06/16/18 10:19 Dose: 1 applic Cyanocobalamin (Vitamin B12 -) 1,000 mcg PO DAILY [facility] Last Admin: 06/16/18 10:09 Dose: 1,000 mcg Furosemide (Lasix Injection -) 40 mg IVPUSH ONCE ONE Stop: 06/16/18 11:22 Hydralazine HCl (Apresoline -) 25 mg PO TID [facility] Last Admin: 06/16/18 06:34 Dose: 25 mg Cefazolin Sodium (Ancef 1 Gm Premixed Ivpb -) 1 gm in 50 mls @ 100 mls/hr IVPB BID [facility] Last Admin: 06/16/18 10:10 Dose: 100 mls/hr Insulin Aspart (Novolog Vial Sliding Scale -) 1 vial SQ ACHS [facility]; Protocol Last Admin: 06/16/18 06:34 Dose: Not Given Insulin Detemir (Levemir Vial) 20 units SQ BID@0700,2200 [facility] Last Admin: 06/16/18 06:34 Dose: 20 units Isosorbide Dinitrate (Isordil -) 5 mg PO BIDISORDIL [facility] Last Admin: 06/16/18 10:10 Dose: 5 mg - Objective Vital Signs: Vital Signs Temperature 98.9 F 06/16/18 05:00 Pulse Rate 95 H 06/16/18 05:00 Respiratory Rate 20 06/16/18 05:00 Blood Pressure 135/81 06/16/18 05:00 O2 Sat by Pulse Oximetry (%) 98 06/15/18 20:16 Constitutional: Yes: Calm Cardiovascular: Yes: Regular Rate and Rhythm, S1, S2 Respiratory: Yes: CTA Bilaterally Gastrointestinal: Yes: Normal Bowel Sounds, Soft Edema: Yes Edema: LLE: 2+ Neurological: Yes: Alert, Oriented Labs: CBC, BMP 06/16/18 05:30 06/16/18 05:30 INR, PTT INR 1.14 (0.83-1.09) H 06/12/18 23:30 Problem List - Problems (1) Elevated troponin Assessment/Plan: trend troponin- down wards cardiology on board to review stress test Ejection Fraction 30% and small areas of ischemia echo at least mildly reduced LV fx iv heparin stop Code(s): R74.8 - ABNORMAL LEVELS OF OTHER SERUM ENZYMES (2) Chronic renal disease Assessment/Plan: renal consult doppler no dvt Code(s): N18.9 - CHRONIC KIDNEY DISEASE, UNSPECIFIED (3) Diabetes Assessment/Plan: insulin bid Code(s): E11.9 - TYPE 2 DIABETES MELLITUS WITHOUT COMPLICATIONS Qualifiers: Diabetes mellitus type: type 1 Diabetes mellitus complication status: with skin complications Diabetes mellitus complication detail: with foot ulcer Qualified Code(s): E10.621 - Type 1 diabetes mellitus with foot ulcer (4) D-dimer, elevated Assessment/Plan: vq scan- no PE Code(s): R79.89 - OTHER SPECIFIED ABNORMAL FINDINGS OF BLOOD CHEMISTRY (5) Wound, open, toe Assessment/Plan: podiatry on board MRI - no evidence of osteomyltis santly to the wound Code(s): S91.109A - UNSP OPEN WOUND OF UNSP TOE(S) W/O DAMAGE TO NAIL, INIT
--- NOTE | 2018-06-16 15:49 | PN ---
Progress Note, Physician History of Present Illness: Pt seen and examined at bedside. He complains of lower ext edema. He denies shortness of breath. - Current Medication List Current Medications: Active Medications Amlodipine Besylate (Norvasc -) 10 mg PO DAILY [facility] Last Admin: 06/16/18 10:10 Dose: 10 mg Aspirin (Ecotrin -) 81 mg PO DAILY [facility] Last Admin: 06/16/18 10:10 Dose: 81 mg Atorvastatin Calcium (Lipitor -) 20 mg PO HS [facility] Last Admin: 06/15/18 21:21 Dose: 20 mg Collagenase (Santyl -) 1 applic TP DAILY [facility]; Protocol Last Admin: 06/16/18 10:19 Dose: 1 applic Cyanocobalamin (Vitamin B12 -) 1,000 mcg PO DAILY [facility] Last Admin: 06/16/18 10:09 Dose: 1,000 mcg Hydralazine HCl (Apresoline -) 25 mg PO TID [facility] Last Admin: 06/16/18 14:13 Dose: 25 mg Cefazolin Sodium (Ancef 1 Gm Premixed Ivpb -) 1 gm in 50 mls @ 100 mls/hr IVPB BID [facility] Last Admin: 06/16/18 10:10 Dose: 100 mls/hr Insulin Aspart (Novolog Vial Sliding Scale -) 1 vial SQ ACHS [facility]; Protocol Last Admin: 06/16/18 11:55 Dose: 2 units Insulin Detemir (Levemir Vial) 20 units SQ BID@0700,2200 [facility] Last Admin: 06/16/18 06:34 Dose: 20 units Isosorbide Dinitrate (Isordil -) 5 mg PO BIDISORDIL [facility] Last Admin: 06/16/18 10:10 Dose: 5 mg - Objective Vital Signs: Vital Signs Temperature 98.2 F 06/16/18 14:00 Pulse Rate 90 06/16/18 14:00 Respiratory Rate 20 06/16/18 14:00 Blood Pressure 140/69 06/16/18 14:00 O2 Sat by Pulse Oximetry (%) 98 06/16/18 09:00 Constitutional: Yes: Calm Eyes: Yes: Conjunctiva Clear HENT: Yes: Atraumatic Neck: Yes: Supple Cardiovascular: Yes: S1, S2 Respiratory: Yes: CTA Bilaterally Gastrointestinal: Yes: Soft Genitourinary: Yes: WNL Edema: Yes Edema: LLE: 1+, RLE: 1+ Neurological: Yes: Oriented Psychiatric: Yes: Oriented Labs: CBC, BMP 06/16/18 05:30 06/16/18 05:30 INR, PTT INR 1.14 (0.83-1.09) H 06/12/18 23:30 Problem List - Problems (1) Cellulitis Code(s): L03.90 - CELLULITIS, UNSPECIFIED (2) CKD (chronic kidney disease) Code(s): N18.9 - CHRONIC KIDNEY DISEASE, UNSPECIFIED Assessment/Plan Current Medications Generic Name Dose Route Start Last Admin Trade Name Freq PRN Reason Stop Dose Admin Amlodipine Besylate 10 mg 06/13/18 10:00 06/16/18 10:10 Norvasc - PO 10 mg DAILY [facility] Administration Aspirin 81 mg 06/13/18 10:00 06/16/18 10:10 Ecotrin - PO 81 mg DAILY [facility] Administration Atorvastatin Calcium 20 mg 06/13/18 22:00 06/15/18 21:21 Lipitor - PO 20 mg HS [facility] Administration Collagenase 1 applic 06/13/18 11:30 06/16/18 10:19 Santyl - TP 1 applic DAILY [facility] Administration Protocol Cyanocobalamin 1,000 mcg 06/13/18 10:00 06/16/18 10:09 Vitamin B12 - PO 1,000 mcg DAILY [facility] Administration Hydralazine HCl 25 mg 06/13/18 22:00 06/16/18 14:13 Apresoline - PO 25 mg TID [facility] Administration Cefazolin Sodium 1 gm in 50 mls @ 100 mls/hr 06/14/18 10:00 06/16/18 10:10 Ancef 1 Gm Premixed Ivpb - IVPB 100 mls/hr BID [facility] Administration Insulin Aspart 1 vial 06/13/18 07:00 06/16/18 11:55 Novolog Vial Sliding Scale - SQ 2 units ACHS [facility] Administration Protocol Insulin Detemir 20 units 06/12/18 22:00 06/16/18 06:34 Levemir Vial SQ 20 units BID@0700,2200 [facility] Administration Isosorbide Dinitrate 5 mg 06/15/18 11:00 06/16/18 10:10 Isordil - PO 5 mg BIDISORDIL [facility] Administration Impression 1. CKD 2. elevated cardiac enzymes 3. DM 4. chest pain 5. hyperlipidemia 6. HTN 7. hx of Wilms tumor, s/p left nephrectomy Plan - agree with 40 mg of lasix - lasix should help with potassium as well - monitor bp - cont amlodipine - will follow - will hold off HD until fistula is mature
--- NOTE | 2018-06-16 21:20 | PN ---
Progress Note (short form) - Note Progress Note: follow up left big toe. pt seen this afternoon. vss, +improved cellulitis, +granulation, -drainage, chronic wound continue care as per team. continue santyl. will follow. Anticipate dc. follow up in office.
[2018-06-16] MEDS: ATORVASTATIN CA 20 MG TABLET (FP) PO SCH (21:23)
--- NOTE | 2018-06-16 23:19 | PN ---
Progress Note, Physician Chief Complaint: comfortable in bed no complaint - Current Medication List Current Medications: Active Medications Amlodipine Besylate (Norvasc -) 10 mg PO DAILY [facility] Last Admin: 06/16/18 10:10 Dose: 10 mg Aspirin (Ecotrin -) 81 mg PO DAILY [facility] Last Admin: 06/16/18 10:10 Dose: 81 mg Atorvastatin Calcium (Lipitor -) 20 mg PO HS [facility] Last Admin: 06/16/18 21:23 Dose: 20 mg Collagenase (Santyl -) 1 applic TP DAILY [facility]; Protocol Last Admin: 06/16/18 10:19 Dose: 1 applic Cyanocobalamin (Vitamin B12 -) 1,000 mcg PO DAILY [facility] Last Admin: 06/16/18 10:09 Dose: 1,000 mcg Hydralazine HCl (Apresoline -) 25 mg PO TID [facility] Last Admin: 06/16/18 21:23 Dose: 25 mg Cefazolin Sodium (Ancef 1 Gm Premixed Ivpb -) 1 gm in 50 mls @ 100 mls/hr IVPB BID [facility] Last Admin: 06/16/18 21:23 Dose: 100 mls/hr Insulin Aspart (Novolog Vial Sliding Scale -) 1 vial SQ ACHS [facility]; Protocol Last Admin: 06/16/18 21:30 Dose: Not Given Insulin Detemir (Levemir Vial) 20 units SQ BID@0700,2200 [facility] Last Admin: 06/16/18 21:23 Dose: 20 units Isosorbide Dinitrate (Isordil -) 5 mg PO BIDISORDIL [facility] Last Admin: 06/16/18 17:24 Dose: 5 mg - Objective Vital Signs: Vital Signs Temperature 98.6 F 06/16/18 21:00 Pulse Rate 88 06/16/18 21:00 Respiratory Rate 18 06/16/18 21:00 Blood Pressure 135/68 06/16/18 21:00 O2 Sat by Pulse Oximetry (%) 97 06/16/18 21:00 Constitutional: Yes: Calm Eyes: Yes: EOM Intact HENT: Yes: Normocephalic Neck: Yes: Trachea Midline Cardiovascular: Yes: Regular Rate and Rhythm Respiratory: Yes: CTA Bilaterally Labs: CBC, BMP 06/16/18 05:30 06/16/18 05:30 INR, PTT INR 1.14 (0.83-1.09) H 06/12/18 23:30 Problem List - Problems (1) Type 2 diabetes mellitus with diabetic chronic kidney disease Code(s): E11.22 - TYPE 2 DIABETES MELLITUS W DIABETIC CHRONIC KIDNEY DISEASE (2) Cardiomyopathy Code(s): I42.9 - CARDIOMYOPATHY, UNSPECIFIED (3) D-dimer, elevated Code(s): R79.89 - OTHER SPECIFIED ABNORMAL FINDINGS OF BLOOD CHEMISTRY (4) Dyspnea Code(s): R06.00 - DYSPNEA, UNSPECIFIED (5) Elevated d-dimer Code(s): R79.89 - OTHER SPECIFIED ABNORMAL FINDINGS OF BLOOD CHEMISTRY (6) Elevated troponin Code(s): R74.8 - ABNORMAL LEVELS OF OTHER SERUM ENZYMES (7) NSTEMI (non-ST elevated myocardial infarction) Code(s): I21.4 - NON-ST ELEVATION (NSTEMI) MYOCARDIAL INFARCTION (8) Pulmonary hypertension Code(s): I27.20 - PULMONARY HYPERTENSION, UNSPECIFIED (9) Wound, open, toe Code(s): S91.109A - UNSP OPEN WOUND OF UNSP TOE(S) W/O DAMAGE TO NAIL, INIT Assessment/Plan Current Active Problems Cardiomyopathy (Acute) Cellulitis (Acute) Chills (without fever) (Acute) D-dimer, elevated (Acute) Dyspnea (Acute) Elevated d-dimer (Acute) Elevated troponin (Acute) NSTEMI (non-ST elevated myocardial infarction) (Acute) Pulmonary hypertension (Acute) Type 2 diabetes mellitus with diabetic chronic kidney disease (Acute) Wound, open, toe (Acute) Abnormal Lab Results 06/16/18 06/16/18 06/16/18 05:30 05:30 05:30 RBC 3.78 L Hgb 10.8 L Hct 32.0 L PTT (Actin FS) 58.8 H Potassium 5.4 H Chloride 112 H Anion Gap 5 L BUN 52 H Creatinine 4.6 H Random Glucose 134 H Alkaline Phosphatase 135 H Albumin 2.8 L Laboratory Results - last 24 hr 06/15/18 06/16/18 06/16/18 15:34 05:30 05:30 WBC 6.2 RBC 3.78 L Hgb 10.8 L Hct 32.0 L MCV 84.5 MCH 28.6 MCHC 33.8 RDW 15.0 Plt Count 229 MPV 7.7 PTT (Actin FS) 58.8 H Sodium Potassium Chloride Carbon Dioxide Anion Gap BUN Creatinine Creat Clearance w eGFR POC Glucometer 205 Random Glucose Calcium Total Bilirubin AST ALT Alkaline Phosphatase Total Protein Albumin 06/16/18 06/16/18 06/16/18 05:30 05:39 11:49 WBC RBC Hgb Hct MCV MCH MCHC RDW Plt Count MPV PTT (Actin FS) Sodium 139 Potassium 5.4 H Chloride 112 H Carbon Dioxide 22 Anion Gap 5 L BUN 52 H Creatinine 4.6 H Creat Clearance w eGFR 12.97 POC Glucometer 134 239 Random Glucose 134 H Calcium 8.6 Total Bilirubin 0.3 AST 19 ALT 13 Alkaline Phosphatase 135 H Total Protein 6.7 Albumin 2.8 L 06/16/18 06/16/18 16:41 21:22 WBC RBC Hgb Hct MCV MCH MCHC RDW Plt Count MPV PTT (Actin FS) Sodium Potassium Chloride Carbon Dioxide Anion Gap BUN Creatinine Creat Clearance w eGFR POC Glucometer 199 186 Random Glucose Calcium Total Bilirubin AST ALT Alkaline Phosphatase Total Protein Albumin plan; bgm qid novolog insulin doses levemir 22 units bid follow up with renal plans possibe hd cardiac meds adjusted
[2018-06-17] MEDS: INSULIN (LEVEMIR) 100 UNITS/ML UNITS SQ SCH ×2 (06:45→22:06)
[2018-06-17] MEDS: hydrALAZINE HCL 25 MG TABLET (FP) PO SCH ×3 (06:46→22:06)
[2018-06-17] MEDS: INSULIN SLIDING SCALE (NOVOLOG) 1 VIAL SQ SCH ×4 (06:46→22:07)
[2018-06-17] MEDS ORDERED: PT OWN MED DRAWER 7, Y5N ONE (09:16)
[2018-06-17] MEDS: ISOSORBIDE DINITRATE 5 MG TABLET PO SCH ×2 (10:23→18:03)
[2018-06-17] MEDS: amLODIPine BESYLATE 10 MG TABLET (FP) PO SCH (10:23)
[2018-06-17] MEDS: ASPIRIN COATED 81 MG TABLET.EC PO SCH (10:23)
[2018-06-17] MEDS: CYANOCOBALAMIN 1,000 MCG TABLET (FP) PO SCH (10:23)
[2018-06-17] MEDS: CEFAZOLIN 1 GM/D5W 1 GM/50 ML BAG IVPB SCH ×2 (10:23→22:06)
[2018-06-17] MEDS: COLLAGENASE CLOSTRIDIUM HIST. 30 GRAMS TUBE TP SCH (10:24)
--- NOTE | 2018-06-17 10:37 | PN ---
Progress Note (short form) - Note Progress Note: No chest pain, sob, palps, dizziness TELE: NSR Current Medications Amlodipine Besylate (Norvasc -) 10 mg PO DAILY [facility] Last Admin: 06/17/18 10:23 Dose: 10 mg Aspirin (Ecotrin -) 81 mg PO DAILY [facility] Last Admin: 06/17/18 10:23 Dose: 81 mg Atorvastatin Calcium (Lipitor -) 20 mg PO HS [facility] Last Admin: 06/16/18 21:23 Dose: 20 mg Collagenase (Santyl -) 1 applic TP DAILY [facility]; Protocol Last Admin: 06/17/18 10:24 Dose: 1 applic Cyanocobalamin (Vitamin B12 -) 1,000 mcg PO DAILY [facility] Last Admin: 06/17/18 10:23 Dose: 1,000 mcg Hydralazine HCl (Apresoline -) 25 mg PO TID [facility] Last Admin: 06/17/18 06:46 Dose: 25 mg Cefazolin Sodium (Ancef 1 Gm Premixed Ivpb -) 1 gm in 50 mls @ 100 mls/hr IVPB BID [facility] Last Admin: 06/17/18 10:23 Dose: 100 mls/hr Insulin Aspart (Novolog Vial Sliding Scale -) 1 vial SQ ACHS [facility]; Protocol Last Admin: 06/17/18 06:46 Dose: Not Given Insulin Detemir (Levemir Vial) 20 units SQ BID@0700,2200 [facility] Last Admin: 06/17/18 06:45 Dose: 20 units Isosorbide Dinitrate (Isordil -) 5 mg PO BIDISORDIL [facility] Last Admin: 06/17/18 10:23 Dose: 5 mg Vital Signs Period Temp Pulse Resp BP Sys/Barrera Pulse Ox Last 24 Hr 98.0 F-98.6 F 88-98 16-20 135-157/68-77 97 Constitutional: Yes: No Distress Cardiovascular: Yes: Regular Rate and Rhythm Respiratory: Yes: CTA Bilaterally Gastrointestinal: Yes: Soft, nontender Edema: no Neurological: Yes: Alert, Oriented no jaundice not agitated - ....Imaging EKG: Image Reviewed Assessment/Plan 1. Elevated troponin, abnormal stress test/Dyspnea: - trop 0.47, EKG no ischemic changes, history less consistent with ACS - recent mibi 04/2018 showed EF 30% and small area of mild ischemia. Images reviewed , mild apical ischemia with EF 30% range. - asymptomatic currently, however with elevated trop as above. Angiogram deferred given ESRD not yet on HD and contrast allergy - continue aspirin, statin - echo technically difficult, overall at least mildly reduced LV fx - concern for foot infection - may be 2/2 demand ischemia - V/Q scan negative for PE, heparin dc'ed 2. Cardiomyopathy: - EF 30% on mibi - echo confrims at least mild LV dysfx - no bb given history of worsening dyspnea and wheezing with metoprolol, no MERRILL/ ARB given CKD -Medical management of underlying possible CAD as above -continue hydralazine, imdur -CXR yesterday with improved congestive changes, received lasix 40 mg IV x 1, edema resolved -appears euvolemic 3. L toe ulcer: - manage per podiatry, vascular 4. HTN: - stable, continue home meds 5. DM: - manage per primary, endo 6. CKD: - nephrology consulted - recent AV fistula placement 7.HLD: - cont statin
--- NOTE | 2018-06-17 11:40 | PN ---
Progress Note, Physician History of Present Illness: pulmonary alert,comfortable,-resp distress,cp,-cough - Current Medication List Current Medications: Active Medications Amlodipine Besylate (Norvasc -) 10 mg PO DAILY [facility] Last Admin: 06/17/18 10:23 Dose: 10 mg Aspirin (Ecotrin -) 81 mg PO DAILY [facility] Last Admin: 06/17/18 10:23 Dose: 81 mg Atorvastatin Calcium (Lipitor -) 20 mg PO HS [facility] Last Admin: 06/16/18 21:23 Dose: 20 mg Collagenase (Santyl -) 1 applic TP DAILY [facility]; Protocol Last Admin: 06/17/18 10:24 Dose: 1 applic Cyanocobalamin (Vitamin B12 -) 1,000 mcg PO DAILY [facility] Last Admin: 06/17/18 10:23 Dose: 1,000 mcg Hydralazine HCl (Apresoline -) 25 mg PO TID [facility] Last Admin: 06/17/18 06:46 Dose: 25 mg Cefazolin Sodium (Ancef 1 Gm Premixed Ivpb -) 1 gm in 50 mls @ 100 mls/hr IVPB BID [facility] Last Admin: 06/17/18 10:23 Dose: 100 mls/hr Insulin Aspart (Novolog Vial Sliding Scale -) 1 vial SQ ACHS [facility]; Protocol Last Admin: 06/17/18 06:46 Dose: Not Given Insulin Detemir (Levemir Vial) 20 units SQ BID@0700,2200 [facility] Last Admin: 06/17/18 06:45 Dose: 20 units Isosorbide Dinitrate (Isordil -) 5 mg PO BIDISORDIL [facility] Last Admin: 06/17/18 10:23 Dose: 5 mg - Objective Vital Signs: Vital Signs Temperature 98 F 06/17/18 10:00 Pulse Rate 100 H 06/17/18 10:00 Respiratory Rate 20 06/17/18 10:00 Blood Pressure 138/64 06/17/18 10:00 O2 Sat by Pulse Oximetry (%) 97 06/16/18 21:00 Constitutional: Yes: Well Nourished, Calm, Obese Eyes: Yes: WNL HENT: Yes: WNL Neck: Yes: WNL Cardiovascular: Yes: Regular Rate and Rhythm, S1, S2 Respiratory: Yes: Diminished Gastrointestinal: Yes: Normal Bowel Sounds, Soft Extremities: Yes: WNL Edema: No Labs: Problem List - Problems (1) Dyspnea Code(s): R06.00 - DYSPNEA, UNSPECIFIED (2) D-dimer, elevated Code(s): R79.89 - OTHER SPECIFIED ABNORMAL FINDINGS OF BLOOD CHEMISTRY (3) Elevated troponin Code(s): R74.8 - ABNORMAL LEVELS OF OTHER SERUM ENZYMES (4) Wound, open, toe Code(s): S91.109A - UNSP OPEN WOUND OF UNSP TOE(S) W/O DAMAGE TO NAIL, INIT (5) Acute kidney injury superimposed on chronic kidney disease Code(s): N17.9 - ACUTE KIDNEY FAILURE, UNSPECIFIED; N18.9 - CHRONIC KIDNEY DISEASE, UNSPECIFIED (6) CKD (chronic kidney disease) Code(s): N18.9 - CHRONIC KIDNEY DISEASE, UNSPECIFIED (7) HTN (hypertension) Code(s): I10 - ESSENTIAL (PRIMARY) HYPERTENSION Qualifiers: Hypertension type: essential hypertension Qualified Code(s): I10 - Essential (primary) hypertension (8) Hypercholesterolemia Code(s): E78.0 - PURE HYPERCHOLESTEROLEMIA * DO NOT USE * (9) Troponin I above reference range Code(s): R74.8 - ABNORMAL LEVELS OF OTHER SERUM ENZYMES (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 UNDERLYING MILD OBSTRUCTIVE AIRWAY DISEASE SYMPTOMS EXACERBATED BY BETA-BLOCKERS,+ CARDIOMYOPATHY CKD + TROPONIN HTN DM H/O WILMS TUMOR S/P L NEPHRECTOMY PULMONARY HTN REBECCA AHI 26.5 ON SLEEP SCREEN LEFT FOOT ULCER PLAN PFTS OUTPATIENT FORMAL SLEEP STUDIES OUTPATIENT DAILY WT DVT PROPHYLAXIS DR MCDANIEL Problem List - Problems (1) Dyspnea Code(s): R06.00 - DYSPNEA, UNSPECIFIED (2) D-dimer, elevated Code(s): R79.89 - OTHER SPECIFIED ABNORMAL FINDINGS OF BLOOD CHEMISTRY (3) Elevated troponin Code(s): R74.8 - ABNORMAL LEVELS OF OTHER SERUM ENZYMES (4) Wound, open, toe Code(s): S91.109A - UNSP OPEN WOUND OF UNSP TOE(S) W/O DAMAGE TO NAIL, INIT (5) Acute kidney injury superimposed on chronic kidney disease Code(s): N17.9 - ACUTE KIDNEY FAILURE, UNSPECIFIED; N18.9 - CHRONIC KIDNEY DISEASE, UNSPECIFIED (6) CKD (chronic kidney disease) Code(s): N18.9 - CHRONIC KIDNEY DISEASE, UNSPECIFIED (7) HTN (hypertension) Code(s): I10 - ESSENTIAL (PRIMARY) HYPERTENSION Qualifiers: Hypertension type: essential hypertension Qualified Code(s): I10 - Essential (primary) hypertension (8) Hypercholesterolemia Code(s): E78.0 - PURE HYPERCHOLESTEROLEMIA * DO NOT USE * (9) Troponin I above reference range Code(s): R74.8 - ABNORMAL LEVELS OF OTHER SERUM ENZYMES (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
[2018-06-17 14:04] LABS: ANION GAP 8 MMOL/L (8-16); BLOOD UREA NITROGEN 54 mg/dL (7-18); CALCIUM 8.5 mg/dL (8.5-10.1); CHLORIDE 110 mmol/L (98-107); CO2 22 mmol/L (21-32); CREATININE 4.5 mg/dL (0.55-1.3); GLUCOSE,RANDOM 226 mg/dL (74-106); POTASSIUM 5.6 mmol/L (3.5-5.1); SODIUM 139 mmol/L (136-145)
[2018-06-17] MEDS ORDERED: FUROSEMIDE 40 MG/4 ML INJECTABLE VIAL IVPUSH ONE (15:10)
--- NOTE | 2018-06-17 15:17 | PN ---
Progress Note, Physician History of Present Illness: Pt seen and examined at bedside. He is awake and alert. He complains of lower ext edema. - Current Medication List Current Medications: Active Medications Amlodipine Besylate (Norvasc -) 10 mg PO DAILY [facility] Last Admin: 06/17/18 10:23 Dose: 10 mg Aspirin (Ecotrin -) 81 mg PO DAILY [facility] Last Admin: 06/17/18 10:23 Dose: 81 mg Atorvastatin Calcium (Lipitor -) 20 mg PO HS [facility] Last Admin: 06/16/18 21:23 Dose: 20 mg Collagenase (Santyl -) 1 applic TP DAILY [facility]; Protocol Last Admin: 06/17/18 10:24 Dose: 1 applic Cyanocobalamin (Vitamin B12 -) 1,000 mcg PO DAILY [facility] Last Admin: 06/17/18 10:23 Dose: 1,000 mcg Hydralazine HCl (Apresoline -) 25 mg PO TID [facility] Last Admin: 06/17/18 14:28 Dose: 25 mg Cefazolin Sodium (Ancef 1 Gm Premixed Ivpb -) 1 gm in 50 mls @ 100 mls/hr IVPB BID [facility] Last Admin: 06/17/18 10:23 Dose: 100 mls/hr Insulin Aspart (Novolog Vial Sliding Scale -) 1 vial SQ ACHS [facility]; Protocol Last Admin: 06/17/18 12:06 Dose: Not Given Insulin Detemir (Levemir Vial) 20 units SQ BID@0700,2200 [facility] Last Admin: 06/17/18 06:45 Dose: 20 units Isosorbide Dinitrate (Isordil -) 5 mg PO BIDISORDIL [facility] Last Admin: 06/17/18 10:23 Dose: 5 mg - Objective Vital Signs: Vital Signs Temperature 97.6 F 06/17/18 14:00 Pulse Rate 100 H 06/17/18 10:00 Respiratory Rate 18 06/17/18 14:00 Blood Pressure 152/72 06/17/18 14:00 O2 Sat by Pulse Oximetry (%) 97 06/17/18 09:00 Constitutional: Yes: Calm Eyes: Yes: Conjunctiva Clear HENT: Yes: Atraumatic Neck: Yes: Supple Cardiovascular: Yes: S1, S2 Respiratory: Yes: CTA Bilaterally Gastrointestinal: Yes: Soft Genitourinary: Yes: WNL Edema: Yes Edema: LLE: 1+, RLE: 1+ Neurological: Yes: Oriented Psychiatric: Yes: Oriented Labs: CBC, BMP 06/16/18 05:30 06/17/18 12:55 INR, PTT INR 1.14 (0.83-1.09) H 06/12/18 23:30 Problem List - Problems (1) Cellulitis Code(s): L03.90 - CELLULITIS, UNSPECIFIED (2) CKD (chronic kidney disease) Code(s): N18.9 - CHRONIC KIDNEY DISEASE, UNSPECIFIED Assessment/Plan Current Medications Generic Name Dose Route Start Last Admin Trade Name Freq PRN Reason Stop Dose Admin Amlodipine Besylate 10 mg 06/13/18 10:00 06/17/18 10:23 Norvasc - PO 10 mg DAILY [facility] Administration Aspirin 81 mg 06/13/18 10:00 06/17/18 10:23 Ecotrin - PO 81 mg DAILY [facility] Administration Atorvastatin Calcium 20 mg 06/13/18 22:00 06/16/18 21:23 Lipitor - PO 20 mg HS [id number] Administration Collagenase 1 applic 06/13/18 11:30 06/17/18 10:24 Santyl - TP 1 applic DAILY [facility] Administration Protocol Cyanocobalamin 1,000 mcg 06/13/18 10:00 06/17/18 10:23 Vitamin B12 - PO 1,000 mcg DAILY [facility] Administration Furosemide 40 mg 06/18/18 10:00 Lasix - PO DAILY [facility] Hydralazine HCl 25 mg 06/13/18 22:00 06/17/18 14:28 Apresoline - PO 25 mg TID [facility] Administration Cefazolin Sodium 1 gm in 50 mls @ 100 mls/hr 06/14/18 10:00 06/17/18 10:23 Ancef 1 Gm Premixed Ivpb - IVPB 100 mls/hr BID [facility] Administration Insulin Aspart 1 vial 06/13/18 07:00 06/17/18 12:06 Novolog Vial Sliding Scale - SQ Not Given ACHS [facility] Protocol Insulin Detemir 20 units 06/12/18 22:00 06/17/18 06:45 Levemir Vial SQ 20 units BID@0700,2200 [facility] Administration Isosorbide Dinitrate 5 mg 06/15/18 11:00 06/17/18 10:23 Isordil - PO 5 mg BIDISORDIL [facility] Administration Impression 1. CKD 2. elevated cardiac enzymes 3. DM 4. chest pain 5. hyperlipidemia 6. HTN 7. hx of Wilms tumor, s/p left nephrectomy 8. hyperkalemia Plan - will redose lasix - start po sodium bicarb - low potassium diet - lasix should help with potassium - monitor bp - will hold off HD until fistula is mature
[2018-06-17] MEDS ORDERED: SODIUM POLYSTYRENE SULFONATE 15 GM/60 ML BOTTLE PO ONE (15:18)
--- NOTE | 2018-06-17 16:37 | PN ---
Progress Note, Physician Chief Complaint: AWAKE ALERT CHART AND EVENTS REVIEWED D/C CANCELED DUE TO HYPERKALEMIA - Current Medication List Current Medications: Active Medications Amlodipine Besylate (Norvasc -) 10 mg PO DAILY [facility] Last Admin: 06/17/18 10:23 Dose: 10 mg Aspirin (Ecotrin -) 81 mg PO DAILY [facility] Last Admin: 06/17/18 10:23 Dose: 81 mg Atorvastatin Calcium (Lipitor -) 20 mg PO HS [facility] Last Admin: 06/16/18 21:23 Dose: 20 mg Collagenase (Santyl -) 1 applic TP DAILY [facility]; Protocol Last Admin: 06/17/18 10:24 Dose: 1 applic Cyanocobalamin (Vitamin B12 -) 1,000 mcg PO DAILY [facility] Last Admin: 06/17/18 10:23 Dose: 1,000 mcg Furosemide (Lasix -) 40 mg PO DAILY [facility] Hydralazine HCl (Apresoline -) 25 mg PO TID [facility] Last Admin: 06/17/18 14:28 Dose: 25 mg Cefazolin Sodium (Ancef 1 Gm Premixed Ivpb -) 1 gm in 50 mls @ 100 mls/hr IVPB BID [facility] Last Admin: 06/17/18 10:23 Dose: 100 mls/hr Insulin Aspart (Novolog Vial Sliding Scale -) 1 vial SQ ACHS [facility]; Protocol Last Admin: 06/17/18 12:06 Dose: Not Given Insulin Detemir (Levemir Vial) 20 units SQ BID@0700,2200 [facility] Last Admin: 06/17/18 06:45 Dose: 20 units Isosorbide Dinitrate (Isordil -) 5 mg PO BIDISORDIL [facility] Last Admin: 06/17/18 10:23 Dose: 5 mg Sodium Bicarbonate (Sodium Bicarbonate -) 325 mg PO BID [facility] - Objective Vital Signs: Vital Signs Temperature 97.6 F 06/17/18 14:00 Pulse Rate 100 H 06/17/18 10:00 Respiratory Rate 18 06/17/18 14:00 Blood Pressure 152/72 06/17/18 14:00 O2 Sat by Pulse Oximetry (%) 97 06/17/18 09:00 Constitutional: Yes: No Distress Eyes: Yes: WNL HENT: Yes: WNL Neck: Yes: WNL Cardiovascular: Yes: Regular Rate and Rhythm Respiratory: Yes: WNL Gastrointestinal: Yes: WNL Genitourinary: Yes: WNL Musculoskeletal: Yes: Muscle Weakness Extremities: Yes: WNL Edema: No Peripheral Pulses WNL: Yes Integumentary: Yes: WNL Wound/Incision: Yes: Dressing Dry and Intact Neurological: Yes: Other ...Motor Strength: LLE, RLE Psychiatric: Yes: WNL, Other Labs: CBC, BMP 06/16/18 05:30 06/17/18 12:55 INR, PTT INR 1.14 (0.83-1.09) H 06/12/18 23:30 Problem List - Problems (1) Cellulitis Code(s): L03.90 - CELLULITIS, UNSPECIFIED (2) Type 2 diabetes mellitus with diabetic chronic kidney disease Code(s): E11.22 - TYPE 2 DIABETES MELLITUS W DIABETIC CHRONIC KIDNEY DISEASE (3) Wound, open, toe Code(s): S91.109A - UNSP OPEN WOUND OF UNSP TOE(S) W/O DAMAGE TO NAIL, INIT (4) CKD (chronic kidney disease) Code(s): N18.9 - CHRONIC KIDNEY DISEASE, UNSPECIFIED (5) Hyperkalemia Code(s): E87.5 - HYPERKALEMIA Assessment/Plan NEPHROLOGY CONSULT APPRECIATED KAYEXALATE NOW X 1 DOSE REPEAT POTASSIUM LEVEL IN AM ABX PER ID FOR FOOT INFECTION PODIATRY F/U
[2018-06-17] MEDS: SODIUM BICARBONATE 325 MG TABLET PO SCH ×2 (18:02→22:42)
[2018-06-17] MEDS: ATORVASTATIN CA 20 MG TABLET (FP) PO SCH (22:06)
[2018-06-18] MEDS: INSULIN (LEVEMIR) 100 UNITS/ML UNITS SQ SCH ×2 (06:46→22:12)
[2018-06-18] MEDS: hydrALAZINE HCL 25 MG TABLET (FP) PO SCH ×3 (06:46→21:56)
[2018-06-18] MEDS: INSULIN SLIDING SCALE (NOVOLOG) 1 VIAL SQ SCH ×4 (06:47→22:12)
[2018-06-18] MEDS ORDERED: PT OWN MED DRAWER 7, Y5N ONE ×2 (09:04→17:43)
[2018-06-18] MEDS: CEFAZOLIN 1 GM/D5W 1 GM/50 ML BAG IVPB SCH ×2 (09:10→21:55)
[2018-06-18] MEDS: ASPIRIN COATED 81 MG TABLET.EC PO SCH (09:11)
[2018-06-18] MEDS: FUROSEMIDE 40 MG TABLET (FP) PO SCH (09:11)
[2018-06-18] MEDS: amLODIPine BESYLATE 10 MG TABLET (FP) PO SCH (09:11)
[2018-06-18] MEDS: CYANOCOBALAMIN 1,000 MCG TABLET (FP) PO SCH (09:11)
[2018-06-18] MEDS: COLLAGENASE CLOSTRIDIUM HIST. 30 GRAMS TUBE TP SCH (09:12)
[2018-06-18] MEDS: SODIUM BICARBONATE 325 MG TABLET PO SCH ×2 (09:12→23:05)
[2018-06-18] MEDS: ISOSORBIDE DINITRATE 5 MG TABLET PO SCH ×2 (09:12→18:15)
--- NOTE | 2018-06-18 10:04 | PN ---
Progress Note, Physician History of Present Illness: PULMONARY ALERT,NO DISTRESS,-CP ,-SOB - Current Medication List Current Medications: Active Medications Amlodipine Besylate (Norvasc -) 10 mg PO DAILY [facility] Last Admin: 06/18/18 09:11 Dose: 10 mg Aspirin (Ecotrin -) 81 mg PO DAILY [facility] Last Admin: 06/18/18 09:11 Dose: 81 mg Atorvastatin Calcium (Lipitor -) 20 mg PO HS [facility] Last Admin: 06/17/18 22:06 Dose: 20 mg Collagenase (Santyl -) 1 applic TP DAILY [facility]; Protocol Last Admin: 06/18/18 09:12 Dose: 1 applic Cyanocobalamin (Vitamin B12 -) 1,000 mcg PO DAILY [facility] Last Admin: 06/18/18 09:11 Dose: 1,000 mcg Furosemide (Lasix -) 40 mg PO DAILY [facility] Last Admin: 06/18/18 09:11 Dose: 40 mg Hydralazine HCl (Apresoline -) 25 mg PO TID [facility] Last Admin: 06/18/18 06:46 Dose: 25 mg Cefazolin Sodium (Ancef 1 Gm Premixed Ivpb -) 1 gm in 50 mls @ 100 mls/hr IVPB BID [facility] Last Admin: 06/18/18 09:10 Dose: 100 mls/hr Insulin Aspart (Novolog Vial Sliding Scale -) 1 vial SQ ACHS [facility]; Protocol Last Admin: 06/18/18 06:47 Dose: Not Given Insulin Detemir (Levemir Vial) 20 units SQ BID@0700,2200 [facility] Last Admin: 06/18/18 06:46 Dose: 20 units Isosorbide Dinitrate (Isordil -) 5 mg PO BIDISORDIL [facility] Last Admin: 06/18/18 09:12 Dose: 5 mg Sodium Bicarbonate (Sodium Bicarbonate -) 325 mg PO BID [facility] Last Admin: 06/18/18 09:12 Dose: 325 mg - Objective Vital Signs: Vital Signs Temperature 98.3 F 06/18/18 06:00 Pulse Rate 91 H 06/18/18 06:00 Respiratory Rate 17 06/18/18 06:00 Blood Pressure 150/83 06/18/18 06:00 O2 Sat by Pulse Oximetry (%) 97 06/17/18 21:00 Constitutional: Yes: Well Nourished, Calm Eyes: Yes: WNL HENT: Yes: WNL Neck: Yes: WNL Cardiovascular: Yes: Regular Rate and Rhythm, S1, S2 Respiratory: Yes: CTA Bilaterally Gastrointestinal: Yes: Normal Bowel Sounds, Soft Extremities: Yes: WNL Edema: Yes (L>R) Labs: CBC, BMP 06/16/18 05:30 06/17/18 12:55 INR, PTT INR 1.14 (0.83-1.09) H 06/12/18 23:30 Problem List - Problems (1) Dyspnea Code(s): R06.00 - DYSPNEA, UNSPECIFIED (2) D-dimer, elevated Code(s): R79.89 - OTHER SPECIFIED ABNORMAL FINDINGS OF BLOOD CHEMISTRY (3) Elevated troponin Code(s): R74.8 - ABNORMAL LEVELS OF OTHER SERUM ENZYMES (4) Wound, open, toe Code(s): S91.109A - UNSP OPEN WOUND OF UNSP TOE(S) W/O DAMAGE TO NAIL, INIT (5) Acute kidney injury superimposed on chronic kidney disease Code(s): N17.9 - ACUTE KIDNEY FAILURE, UNSPECIFIED; N18.9 - CHRONIC KIDNEY DISEASE, UNSPECIFIED (6) CKD (chronic kidney disease) Code(s): N18.9 - CHRONIC KIDNEY DISEASE, UNSPECIFIED (7) HTN (hypertension) Code(s): I10 - ESSENTIAL (PRIMARY) HYPERTENSION Qualifiers: Hypertension type: essential hypertension Qualified Code(s): I10 - Essential (primary) hypertension (8) Hypercholesterolemia Code(s): E78.0 - PURE HYPERCHOLESTEROLEMIA * DO NOT USE * (9) Troponin I above reference range Code(s): R74.8 - ABNORMAL LEVELS OF OTHER SERUM ENZYMES (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 UNDERLYING MILD OBSTRUCTIVE AIRWAY DISEASE SYMPTOMS EXACERBATED BY BETA-BLOCKERS,+ CARDIOMYOPATHY CKD + TROPONIN HTN DM H/O WILMS TUMOR S/P L NEPHRECTOMY PULMONARY HTN REBECCA AHI 26.5 ON SLEEP SCREEN LEFT FOOT ULCER PLAN PFTS OUTPATIENT FORMAL SLEEP STUDIES OUTPATIENT DAILY WT DVT PROPHYLAXIS DR MCDANIEL Problem List - Problems (1) Dyspnea Code(s): R06.00 - DYSPNEA, UNSPECIFIED (2) D-dimer, elevated Code(s): R79.89 - OTHER SPECIFIED ABNORMAL FINDINGS OF BLOOD CHEMISTRY (3) Elevated troponin Code(s): R74.8 - ABNORMAL LEVELS OF OTHER SERUM ENZYMES (4) Wound, open, toe Code(s): S91.109A - UNSP OPEN WOUND OF UNSP TOE(S) W/O DAMAGE TO NAIL, INIT (5) Acute kidney injury superimposed on chronic kidney disease Code(s): N17.9 - ACUTE KIDNEY FAILURE, UNSPECIFIED; N18.9 - CHRONIC KIDNEY DISEASE, UNSPECIFIED (6) CKD (chronic kidney disease) Code(s): N18.9 - CHRONIC KIDNEY DISEASE, UNSPECIFIED (7) HTN (hypertension) Code(s): I10 - ESSENTIAL (PRIMARY) HYPERTENSION Qualifiers: Hypertension type: essential hypertension Qualified Code(s): I10 - Essential (primary) hypertension (8) Hypercholesterolemia Code(s): E78.0 - PURE HYPERCHOLESTEROLEMIA * DO NOT USE * (9) Troponin I above reference range Code(s): R74.8 - ABNORMAL LEVELS OF OTHER SERUM ENZYMES (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
[2018-06-18 10:59] LABS: ANION GAP 10 MMOL/L (8-16); BLOOD UREA NITROGEN 54 mg/dL (7-18); CALCIUM 9.1 mg/dL (8.5-10.1); CHLORIDE 108 mmol/L (98-107); CO2 21 mmol/L (21-32); CREATININE 4.6 mg/dL (0.55-1.3); GLUCOSE,RANDOM 224 mg/dL (74-106); POTASSIUM 5.2 mmol/L (3.5-5.1); SODIUM 139 mmol/L (136-145)
--- NOTE | 2018-06-18 11:04 | PN ---
Progress Note (short form) - Note Progress Note: No chest pain, sob, palps, dizziness TELE: NSR Current Medications Amlodipine Besylate (Norvasc -) 10 mg PO DAILY [facility] Last Admin: 06/18/18 09:11 Dose: 10 mg Aspirin (Ecotrin -) 81 mg PO DAILY [facility] Last Admin: 06/18/18 09:11 Dose: 81 mg Atorvastatin Calcium (Lipitor -) 20 mg PO HS [facility] Last Admin: 06/17/18 22:06 Dose: 20 mg Collagenase (Santyl -) 1 applic TP DAILY [facility]; Protocol Last Admin: 06/18/18 09:12 Dose: 1 applic Cyanocobalamin (Vitamin B12 -) 1,000 mcg PO DAILY [facility] Last Admin: 06/18/18 09:11 Dose: 1,000 mcg Furosemide (Lasix -) 40 mg PO DAILY [facility] Last Admin: 06/18/18 09:11 Dose: 40 mg Hydralazine HCl (Apresoline -) 25 mg PO TID [facility] Last Admin: 06/18/18 06:46 Dose: 25 mg Cefazolin Sodium (Ancef 1 Gm Premixed Ivpb -) 1 gm in 50 mls @ 100 mls/hr IVPB BID [facility] Last Admin: 06/18/18 09:10 Dose: 100 mls/hr Insulin Aspart (Novolog Vial Sliding Scale -) 1 vial SQ ACHS [facility]; Protocol Last Admin: 06/18/18 06:47 Dose: Not Given Insulin Detemir (Levemir Vial) 20 units SQ BID@0700,2200 [facility] Last Admin: 06/18/18 06:46 Dose: 20 units Isosorbide Dinitrate (Isordil -) 5 mg PO BIDISORDIL [facility] Last Admin: 06/18/18 09:12 Dose: 5 mg Sodium Bicarbonate (Sodium Bicarbonate -) 325 mg PO BID [facility] Last Admin: 06/18/18 09:12 Dose: 325 mg Vital Signs Period Temp Pulse Resp BP Sys/Barrera Pulse Ox Last 24 Hr 97.6 F-98.8 F 91-95 17-20 139-152/72-83 97 Constitutional: Yes: No Distress Cardiovascular: Yes: Regular Rate and Rhythm, nl S1 S2 Respiratory: Yes: CTA Bilaterally Gastrointestinal: Yes: Soft, nontender Edema: trace bilaterally Neurological: Yes: Alert, Oriented no jaundice not agitated - ....Imaging EKG: Image Reviewed Assessment/Plan 1. Elevated troponin, abnormal stress test/Dyspnea: - trop 0.47, EKG no ischemic changes, history less consistent with ACS - recent mibi 04/2018 showed EF 30% and small area of mild ischemia. Images reviewed , mild apical ischemia with EF 30% range. - asymptomatic currently, however with elevated trop as above. Angiogram deferred given ESRD not yet on HD and contrast allergy - continue aspirin, statin - echo technically difficult, overall at least mildly reduced LV fx - concern for foot infection - may be 2/2 demand ischemia - V/Q scan negative for PE, heparin dc'ed 2. Cardiomyopathy: - EF 30% on mibi - echo confrims at least mild LV dysfx - no bb given history of worsening dyspnea and wheezing with metoprolol, no MERRILL/ ARB given CKD -Medical management of underlying possible CAD as above -continue hydralazine, imdur -CXR with improved congestive changes, received lasix IV for edema, hyperkalemia per renal -edema improved 3. L toe ulcer: - manage per podiatry, vascular 4. HTN: - stable, continue home meds 5. DM: - manage per primary, endo 6. CKD: - nephrology consulted - recent AV fistula placement 7.HLD: - cont statin
--- NOTE | 2018-06-18 12:08 | PN ---
Progress Note, Physician History of Present Illness: Pt seen and examined at bedside. He is awake and alert. He is eager to go home. - Current Medication List Current Medications: Active Medications Amlodipine Besylate (Norvasc -) 10 mg PO DAILY [facility] Last Admin: 06/18/18 09:11 Dose: 10 mg Aspirin (Ecotrin -) 81 mg PO DAILY [facility] Last Admin: 06/18/18 09:11 Dose: 81 mg Atorvastatin Calcium (Lipitor -) 20 mg PO HS [facility] Last Admin: 06/17/18 22:06 Dose: 20 mg Collagenase (Santyl -) 1 applic TP DAILY [facility]; Protocol Last Admin: 06/18/18 09:12 Dose: 1 applic Cyanocobalamin (Vitamin B12 -) 1,000 mcg PO DAILY [facility] Last Admin: 06/18/18 09:11 Dose: 1,000 mcg Furosemide (Lasix -) 40 mg PO DAILY [facility] Last Admin: 06/18/18 09:11 Dose: 40 mg Hydralazine HCl (Apresoline -) 25 mg PO TID [facility] Last Admin: 06/18/18 06:46 Dose: 25 mg Cefazolin Sodium (Ancef 1 Gm Premixed Ivpb -) 1 gm in 50 mls @ 100 mls/hr IVPB BID [facility] Last Admin: 06/18/18 09:10 Dose: 100 mls/hr Insulin Aspart (Novolog Vial Sliding Scale -) 1 vial SQ ACHS [facility]; Protocol Last Admin: 06/18/18 06:47 Dose: Not Given Insulin Detemir (Levemir Vial) 20 units SQ BID@0700,2200 [facility] Last Admin: 06/18/18 06:46 Dose: 20 units Isosorbide Dinitrate (Isordil -) 5 mg PO BIDISORDIL [facility] 234 B[facility]S AT [facility] Last Admin: 06/18/18 09:12 Dose: 5 mg Sodium Bicarbonate (Sodium Bicarbonate -) 325 mg PO BID [facility] AT [facility] Last Admin: 06/18/18 09:12 Dose: 325 mg - Objective Vital Signs: Vital Signs Temperature 98.3 F 06/18/18 06:00 Pulse Rate 91 H 06/18/18 06:00 Respiratory Rate 17 06/18/18 06:00 Blood Pressure 150/83 06/18/18 06:00 O2 Sat by Pulse Oximetry (%) 97 06/17/18 21:00 Constitutional: Yes: Calm Eyes: Yes: Conjunctiva Clear HENT: Yes: Atraumatic Neck: Yes: Supple Cardiovascular: Yes: S1, S2 Respiratory: Yes: CTA Bilaterally Gastrointestinal: Yes: Soft Musculoskeletal: Yes: WNL Edema: Yes Neurological: Yes: Oriented Psychiatric: Yes: Oriented Labs: CBC, BMP 06/16/18 05:30 06/18/18 10:00 INR, PTT INR 1.14 (0.83-1.09) H 06/12/18 23:30 Problem List - Problems (1) Cellulitis Code(s): L03.90 - CELLULITIS, UNSPECIFIED (2) CKD (chronic kidney disease) Code(s): N18.9 - CHRONIC KIDNEY DISEASE, UNSPECIFIED Assessment/Plan Current Medications Generic Name Dose Route Start Last Admin Trade Name Freq PRN Reason Stop Dose Admin Amlodipine Besylate 10 mg 06/13/18 10:00 06/18/18 09:11 Norvasc - PO 10 mg DAILY [facility] Administration Aspirin 81 mg 06/13/18 10:00 06/18/18 09:11 Ecotrin - PO 81 mg DAILY [facility] Administration Atorvastatin Calcium 20 mg 06/13/18 22:00 06/17/18 22:06 Lipitor - PO 20 mg HS [facility] Administration Collagenase 1 applic 06/13/18 11:30 06/18/18 09:12 Santyl - TP 1 applic DAILY [facility] Administration Protocol Cyanocobalamin 1,000 mcg 06/13/18 10:00 06/18/18 09:11 Vitamin B12 - PO 1,000 mcg DAILY [facility] Administration Furosemide 40 mg 06/18/18 10:00 06/18/18 09:11 Lasix - PO 40 mg DAILY [facility] Administration Hydralazine HCl 25 mg 06/13/18 22:00 06/18/18 06:46 Apresoline - PO 25 mg TID [facility] Administration Cefazolin Sodium 1 gm in 50 mls @ 100 mls/hr 06/14/18 10:00 06/18/18 09:10 Ancef 1 Gm Premixed Ivpb - IVPB 100 mls/hr BID [facility] Administration Insulin Aspart 1 vial 06/13/18 07:00 06/18/18 06:47 Novolog Vial Sliding Scale - SQ Not Given ACHS [facility] Protocol Insulin Detemir 20 units 06/12/18 22:00 06/18/18 06:46 Levemir Vial SQ 20 units BID@0700,2200 [facility] Administration Isosorbide Dinitrate 5 mg 06/15/18 11:00 06/18/18 09:12 Isordil - PO 5 mg BIDISORDIL [facility] Administration Sodium Bicarbonate 325 mg 06/17/18 16:00 06/18/18 09:12 Sodium Bicarbonate - PO 325 mg BID [facility] Administration Impression 1. CKD 2. elevated cardiac enzymes 3. DM 4. chest pain 5. hyperlipidemia 6. HTN 7. hx of Wilms tumor, s/p left nephrectomy 8. hyperkalemia Plan - cont with po lasix - potassium is improving - will see pt in office - monitor bp - cont po bicarb - will hold off HD until fistula is mature
[2018-06-18] MEDS ORDERED: SODIUM POLYSTYRENE SULFONATE 15 GM/60 ML BOTTLE PO ONE (14:45)
--- NOTE | 2018-06-18 16:34 | DS ---
Physical Examination Vital Signs: Vital Signs Temperature 98.3 F 06/18/18 14:05 Pulse Rate 96 H 06/18/18 14:05 Respiratory Rate 20 06/18/18 14:05 Blood Pressure 140/92 06/18/18 14:05 O2 Sat by Pulse Oximetry (%) 97 06/17/18 21:00 Findings/Remarks: WAITING FOR REPEAT POTASSIUM LEVEL TONIGHT Constitutional: Yes: No Distress Eyes: Yes: WNL HENT: Yes: WNL Neck: Yes: WNL Cardiovascular: Yes: WNL Respiratory: Yes: WNL Gastrointestinal: Yes: WNL Renal/: Yes: WNL Musculoskeletal: Yes: WNL Extremities: Yes: Deformity, Other Integumentary: Yes: Pressure Ulcer, Rash, Skin Tear Wound/Incision: Yes: Dressing Dry and Intact ...Motor Strength: LLE, RLE Psychiatric: Yes: WNL Labs: CBC, BMP 06/16/18 05:30 06/18/18 10:00 Discharge Summary Reason For Visit: ELEVATED TROPONIN I LEVEL/DYSPNEA ON EXERTION Current Active Problems Cardiomyopathy (Acute) Cellulitis (Acute) Chills (without fever) (Acute) D-dimer, elevated (Acute) Dyspnea (Acute) Elevated d-dimer (Acute) Elevated troponin (Acute) NSTEMI (non-ST elevated myocardial infarction) (Acute) Pulmonary hypertension (Acute) Type 2 diabetes mellitus with diabetic chronic kidney disease (Acute) Wound, open, toe (Acute) Procedures: Principal: LABS/CX Hospital Course: ADMITTED WOUND DIABETIC INFECTION TREATED IV ABX, ARF/CRF HYPERKALEMIA AND HYPONATREMIA TREATED WILL NEED WEEKLY FOLLOW UP WITH DR PERLA Condition: Good - Instructions Diet, Activity, Other Instructions: SEE DR PRIETO FOR LABS AND POTASSIUM CHECK IN [facility] F/U Disposition: HOME - Home Medications Comprehensive Discharge Medication List: Ambulatory Orders Aspirin [Ecotrin] 81 mg PO DAILY 09/03/15 Atorvastatin Ca [Lipitor] 20 mg PO DAILY 04/30/18 Fish Oil/Borage/Flax/Om3,6,9 1 [Worden 3-6-9 Complex Softgel] 1 each PO DAILY Amlodipine Besylate [Norvasc -] 10 mg PO DAILY 05/23/18 Hydralazine HCl 10 mg PO TID 05/23/18 Insulin Sliding Scale [Novolog Vial Sliding Scale -] 1 vial SQ ASDIR PRN Collagenase Clostridium Hist. [Santyl -] 1 applic TP DAILY #90 tube 06/18/18 Furosemide [Lasix -] 40 mg PO DAILY #30 tablet 06/18/18 Insulin Detemir [Levemir Flextouch] 100 units SQ BID #4 insuln.pen 06/18/18 Isosorbide Dinitrate [Isordil -] 5 mg PO BIDISORDIL #60 tablet 06/18/18 Sodium Bicarbonate - 325 mg PO BID #30 tablet 06/18/18
[2018-06-18] MEDS: ATORVASTATIN CA 20 MG TABLET (FP) PO SCH (21:55)
[2018-06-18 22:01] LABS: ANION GAP 6 MMOL/L (8-16); BLOOD UREA NITROGEN 56 mg/dL (7-18); CALCIUM 8.5 mg/dL (8.5-10.1); CHLORIDE 107 mmol/L (98-107); CO2 25 mmol/L (21-32); CREATININE 4.6 mg/dL (0.55-1.3); GLUCOSE,RANDOM 220 mg/dL (74-106); POTASSIUM 5.3 mmol/L (3.5-5.1); SODIUM 138 mmol/L (136-145)
[2018-06-19] MEDS: hydrALAZINE HCL 25 MG TABLET (FP) PO SCH ×3 (05:47→21:12)
[2018-06-19] MEDS ORDERED: ACETAMINOPHEN 325 MG TABLET (FP) PO ONE (05:49)
[2018-06-19] MEDS: INSULIN (LEVEMIR) 100 UNITS/ML UNITS SQ SCH ×2 (06:09→21:13)
[2018-06-19] MEDS: INSULIN SLIDING SCALE (NOVOLOG) 1 VIAL SQ SCH ×4 (06:12→21:13)
[2018-06-19 08:34] LABS: ANION GAP 5 MMOL/L (8-16); BLOOD UREA NITROGEN 55 mg/dL (7-18); CALCIUM 8.6 mg/dL (8.5-10.1); CHLORIDE 109 mmol/L (98-107); CO2 24 mmol/L (21-32); CREATININE 4.5 mg/dL (0.55-1.3); GLUCOSE,RANDOM 110 mg/dL (74-106); MAGNESIUM 2.3 mg/dL (1.8-2.4); PHOSPHOROUS 4.5 mg/dL (2.5-4.9); POTASSIUM 4.6 mmol/L (3.5-5.1); SODIUM 137 mmol/L (136-145)
[2018-06-19] MEDS: CYANOCOBALAMIN 1,000 MCG TABLET (FP) PO SCH (09:28)
[2018-06-19] MEDS: ASPIRIN COATED 81 MG TABLET.EC PO SCH (09:28)
[2018-06-19] MEDS: amLODIPine BESYLATE 10 MG TABLET (FP) PO SCH (09:28)
[2018-06-19] MEDS: CEFAZOLIN 1 GM/D5W 1 GM/50 ML BAG IVPB SCH (09:28)
[2018-06-19] MEDS: FUROSEMIDE 40 MG TABLET (FP) PO SCH (09:28)
[2018-06-19] MEDS: COLLAGENASE CLOSTRIDIUM HIST. 30 GRAMS TUBE TP SCH (09:29)
[2018-06-19] MEDS: SODIUM BICARBONATE 325 MG TABLET PO SCH ×2 (09:30→21:13)
[2018-06-19] MEDS: ISOSORBIDE DINITRATE 5 MG TABLET PO SCH ×2 (09:31→17:53)
--- NOTE | 2018-06-19 11:31 | PN ---
Progress Note, Physician History of Present Illness: pulmonary alert,no distress,-sob,mild cough. + fever yesterday currently afebrile - Current Medication List Current Medications: Active Medications Amlodipine Besylate (Norvasc -) 10 mg PO DAILY [facility] Last Admin: 06/19/18 09:28 Dose: 10 mg Aspirin (Ecotrin -) 81 mg PO DAILY [facility] Last Admin: 06/19/18 09:28 Dose: 81 mg Atorvastatin Calcium (Lipitor -) 20 mg PO HS [facility] Last Admin: 06/18/18 21:55 Dose: 20 mg Collagenase (Santyl -) 1 applic TP DAILY [facility]; Protocol Last Admin: 06/19/18 09:29 Dose: 1 applic Cyanocobalamin (Vitamin B12 -) 1,000 mcg PO DAILY [facility] Last Admin: 06/19/18 09:28 Dose: 1,000 mcg Furosemide (Lasix -) 40 mg PO DAILY [facility] Last Admin: 06/19/18 09:28 Dose: 40 mg Hydralazine HCl (Apresoline -) 25 mg PO TID [facility] Last Admin: 06/19/18 05:47 Dose: 25 mg Cefazolin Sodium (Ancef 1 Gm Premixed Ivpb -) 1 gm in 50 mls @ 100 mls/hr IVPB BID [facility] Last Admin: 06/19/18 09:28 Dose: 100 mls/hr Insulin Aspart (Novolog Vial Sliding Scale -) 1 vial SQ ACHS [facility]; Protocol Last Admin: 06/19/18 06:12 Dose: Not Given Insulin Detemir (Levemir Vial) 20 units SQ BID@0700,2200 [facility] Last Admin: 06/19/18 06:09 Dose: 20 units Isosorbide Dinitrate (Isordil -) 5 mg PO BIDISORDIL [facility] Last Admin: 06/19/18 09:31 Dose: 5 mg Sodium Bicarbonate (Sodium Bicarbonate -) 325 mg PO BID [facility] Last Admin: 06/19/18 09:30 Dose: 325 mg - Objective Vital Signs: Vital Signs Temperature 99.4 F 06/19/18 10:00 Pulse Rate 105 H 06/19/18 10:00 Respiratory Rate 22 H 06/19/18 10:00 Blood Pressure 148/80 06/19/18 10:00 O2 Sat by Pulse Oximetry (%) 94 L 06/18/18 21:00 Constitutional: Yes: Well Nourished, Calm Eyes: Yes: WNL HENT: Yes: WNL Neck: Yes: WNL Cardiovascular: Yes: Regular Rate and Rhythm, S1, S2 Respiratory: Yes: Diminished Gastrointestinal: Yes: Normal Bowel Sounds, Soft Extremities: Yes: WNL Edema: No Peripheral Pulses WNL: Yes Labs: CBC, BMP 06/19/18 08:00 INR, PTT INR 1.14 (0.83-1.09) H 06/12/18 23:30 Problem List - Problems (1) Dyspnea Code(s): R06.00 - DYSPNEA, UNSPECIFIED (2) D-dimer, elevated Code(s): R79.89 - OTHER SPECIFIED ABNORMAL FINDINGS OF BLOOD CHEMISTRY (3) Elevated troponin Code(s): R74.8 - ABNORMAL LEVELS OF OTHER SERUM ENZYMES (4) Wound, open, toe Code(s): S91.109A - UNSP OPEN WOUND OF UNSP TOE(S) W/O DAMAGE TO NAIL, INIT (5) Acute kidney injury superimposed on chronic kidney disease Code(s): N17.9 - ACUTE KIDNEY FAILURE, UNSPECIFIED; N18.9 - CHRONIC KIDNEY DISEASE, UNSPECIFIED (6) CKD (chronic kidney disease) Code(s): N18.9 - CHRONIC KIDNEY DISEASE, UNSPECIFIED (7) HTN (hypertension) Code(s): I10 - ESSENTIAL (PRIMARY) HYPERTENSION Qualifiers: Hypertension type: essential hypertension Qualified Code(s): I10 - Essential (primary) hypertension (8) Hypercholesterolemia Code(s): E78.0 - PURE HYPERCHOLESTEROLEMIA * DO NOT USE * (9) Troponin I above reference range Code(s): R74.8 - ABNORMAL LEVELS OF OTHER SERUM ENZYMES (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 UNDERLYING MILD OBSTRUCTIVE AIRWAY DISEASE SYMPTOMS EXACERBATED BY BETA-BLOCKERS,+ CARDIOMYOPATHY CKD + TROPONIN HTN DM H/O WILMS TUMOR S/P L NEPHRECTOMY PULMONARY HTN REBECCA AHI 26.5 ON SLEEP SCREEN LEFT FOOT ULCER PLAN PFTS OUTPATIENT FORMAL SLEEP STUDIES OUTPATIENT DAILY WT DVT PROPHYLAXIS DR MCDANIEL Problem List - Problems (1) Dyspnea Code(s): R06.00 - DYSPNEA, UNSPECIFIED (2) D-dimer, elevated Code(s): R79.89 - OTHER SPECIFIED ABNORMAL FINDINGS OF BLOOD CHEMISTRY (3) Elevated troponin Code(s): R74.8 - ABNORMAL LEVELS OF OTHER SERUM ENZYMES (4) Wound, open, toe Code(s): S91.109A - UNSP OPEN WOUND OF UNSP TOE(S) W/O DAMAGE TO NAIL, INIT (5) Acute kidney injury superimposed on chronic kidney disease Code(s): N17.9 - ACUTE KIDNEY FAILURE, UNSPECIFIED; N18.9 - CHRONIC KIDNEY DISEASE, UNSPECIFIED (6) CKD (chronic kidney disease) Code(s): N18.9 - CHRONIC KIDNEY DISEASE, UNSPECIFIED (7) HTN (hypertension) Code(s): I10 - ESSENTIAL (PRIMARY) HYPERTENSION Qualifiers: Hypertension type: essential hypertension Qualified Code(s): I10 - Essential (primary) hypertension (8) Hypercholesterolemia Code(s): E78.0 - PURE HYPERCHOLESTEROLEMIA * DO NOT USE * (9) Troponin I above reference range Code(s): R74.8 - ABNORMAL LEVELS OF OTHER SERUM ENZYMES (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
--- NOTE | 2018-06-19 12:05 | PN ---
Progress Note (short form) - Note Progress Note: s: No chest pain, sob, palps, dizziness TELE: SR Current Medications Generic Name Dose Route Start Last Admin Trade Name Shilpa PRN Reason Stop Dose Admin Amlodipine Besylate 10 mg 06/13/18 10:00 06/19/18 09:28 Norvasc - PO 10 mg DAILY [facility] Administration Aspirin 81 mg 06/13/18 10:00 06/19/18 09:28 Ecotrin - PO 81 mg DAILY [facility] Administration Atorvastatin Calcium 20 mg 06/13/18 22:00 06/18/18 21:55 Lipitor - PO 20 mg HS [facility] Administration Collagenase 1 applic 06/13/18 11:30 06/19/18 09:29 Santyl - TP 1 applic DAILY [facility] Administration Protocol Cyanocobalamin 1,000 mcg 06/13/18 10:00 06/19/18 09:28 Vitamin B12 - PO 1,000 mcg DAILY [facility] Administration Furosemide 40 mg 06/18/18 10:00 06/19/18 09:28 Lasix - PO 40 mg DAILY [facility] Administration Hydralazine HCl 25 mg 06/13/18 22:00 06/19/18 05:47 Apresoline - PO 25 mg TID [facility] Administration Cefazolin Sodium 1 gm in 50 mls @ 100 mls/hr 06/14/18 10:00 06/19/18 09:28 Ancef 1 Gm Premixed Ivpb - IVPB 100 mls/hr BID [facility] Administration Insulin Aspart 1 vial 06/13/18 07:00 06/19/18 06:12 Novolog Vial Sliding Scale - SQ Not Given ACHS [facility] Protocol Insulin Detemir 20 units 06/12/18 22:00 06/19/18 06:09 Levemir Vial SQ 20 units BID@0700,2200 [facility] Administration Isosorbide Dinitrate 5 mg 06/15/18 11:00 06/19/18 09:31 Isordil - PO 5 mg BIDISORDIL [facility] Administration Sodium Bicarbonate 325 mg 06/17/18 16:00 06/19/18 09:30 Sodium Bicarbonate - PO 325 mg BID [facility] Administration Vital Signs Period Temp Pulse Resp BP Sys/Barrera Pulse Ox Last 24 Hr 98 F-100.9 F 96-111 20-22 140-156/76-92 94 Constitutional: Yes: No Distress Cardiovascular: Yes: Regular Rate and Rhythm, nl S1 S2 Respiratory: Yes: CTA Bilaterally Gastrointestinal: Yes: Soft, nontender Edema: trace bilaterally Neurological: Yes: Alert, Oriented no jaundice diaphoresis not agitated - ....Imaging EKG: Image Reviewed Assessment/Plan 1. Elevated troponin, abnormal stress test/Dyspnea: - trop 0.47, EKG no ischemic changes, history less consistent with ACS - recent mibi 04/2018 showed EF 30% and small area of mild ischemia. Images reviewed , mild apical ischemia with EF 30% range. - asymptomatic currently, however with elevated trop as above. Angiogram deferred given ESRD not yet on HD and contrast allergy - continue aspirin, statin - echo technically difficult, overall at least mildly reduced LV fx - concern for foot infection - may be 2/2 demand ischemia - V/Q scan negative for PE, heparin dc'ed 2. Cardiomyopathy: - EF 30% on mibi - echo confrims at least mild LV dysfx - no bb given history of worsening dyspnea and wheezing with metoprolol, no MERRILL/ ARB given CKD -Medical management of underlying possible CAD as above -continue hydralazine, imdur -CXR with improved congestive changes, received lasix IV for edema, hyperkalemia per renal -edema improved, on po lasix now 3. L toe ulcer: - manage per podiatry, vascular 4. HTN: - stable, continue home meds 5. DM: - manage per primary, endo 6. CKD: - nephrology consulted - recent AV fistula placement 7.HLD: - cont statin cardiac khanna stable
--- NOTE | 2018-06-19 13:47 | PN ---
Progress Note, Physician History of Present Illness: Pt seen and examined at bedside. He is awake and alert. He had a fever last night. He feels edema is improving. - Current Medication List Current Medications: Active Medications Amlodipine Besylate (Norvasc -) 10 mg PO DAILY [facility] Last Admin: 06/19/18 09:28 Dose: 10 mg Aspirin (Ecotrin -) 81 mg PO DAILY [facility] Last Admin: 06/19/18 09:28 Dose: 81 mg Atorvastatin Calcium (Lipitor -) 20 mg PO HS [facility] Last Admin: 06/18/18 21:55 Dose: 20 mg Collagenase (Santyl -) 1 applic TP DAILY [facility]; Protocol Last Admin: 06/19/18 09:29 Dose: 1 applic Cyanocobalamin (Vitamin B12 -) 1,000 mcg PO DAILY [facility] Last Admin: 06/19/18 09:28 Dose: 1,000 mcg Furosemide (Lasix -) 40 mg PO DAILY [facility] Last Admin: 06/19/18 09:28 Dose: 40 mg Hydralazine HCl (Apresoline -) 25 mg PO TID [facility] Last Admin: 06/19/18 13:23 Dose: 25 mg Cefazolin Sodium (Ancef 1 Gm Premixed Ivpb -) 1 gm in 50 mls @ 100 mls/hr IVPB BID [facility] Last Admin: 06/19/18 09:28 Dose: 100 mls/hr Insulin Aspart (Novolog Vial Sliding Scale -) 1 vial SQ ACHS [facility]; Protocol Last Admin: 06/19/18 12:13 Dose: Not Given Insulin Detemir (Levemir Vial) 20 units SQ BID@0700,2200 [facility] Last Admin: 06/19/18 06:09 Dose: 20 units Isosorbide Dinitrate (Isordil -) 5 mg PO BIDISORDIL [facility] Last Admin: 06/19/18 09:31 Dose: 5 mg Sodium Bicarbonate (Sodium Bicarbonate -) 325 mg PO BID [facility] Last Admin: 06/19/18 09:30 Dose: 325 mg - Objective Vital Signs: Vital Signs Temperature 99.4 F 06/19/18 10:00 Pulse Rate 105 H 06/19/18 10:00 Respiratory Rate 22 H 06/19/18 10:00 Blood Pressure 148/80 06/19/18 10:00 O2 Sat by Pulse Oximetry (%) 93 L 06/19/18 09:00 Constitutional: Yes: Calm Eyes: Yes: Conjunctiva Clear HENT: Yes: Atraumatic Neck: Yes: Supple Cardiovascular: Yes: S1, S2 Respiratory: Yes: CTA Bilaterally Gastrointestinal: Yes: Soft Genitourinary: Yes: WNL Edema: Yes Edema: LLE: 1+, RLE: 1+ Neurological: Yes: Oriented Psychiatric: Yes: Oriented Labs: CBC, BMP 06/16/18 05:30 06/19/18 08:00 INR, PTT INR 1.14 (0.83-1.09) H 06/12/18 23:30 Problem List - Problems (1) Cellulitis Code(s): L03.90 - CELLULITIS, UNSPECIFIED (2) CKD (chronic kidney disease) Code(s): N18.9 - CHRONIC KIDNEY DISEASE, UNSPECIFIED Assessment/Plan Current Medications Generic Name Dose Route Start Last Admin Trade Name Freq PRN Reason Stop Dose Admin Amlodipine Besylate 10 mg 06/13/18 10:00 06/19/18 09:28 Norvasc - PO 10 mg DAILY [facility] Administration Aspirin 81 mg 06/13/18 10:00 06/19/18 09:28 Ecotrin - PO 81 mg DAILY [facility] Administration Atorvastatin Calcium 20 mg 06/13/18 22:00 06/18/18 21:55 Lipitor - PO 20 mg HS [facility] Administration Collagenase 1 applic 06/13/18 11:30 06/19/18 09:29 Santyl - TP 1 applic DAILY [facility] Administration Protocol Cyanocobalamin 1,000 mcg 06/13/18 10:00 06/19/18 09:28 Vitamin B12 - PO 1,000 mcg DAILY [facility] Administration Furosemide 40 mg 06/18/18 10:00 06/19/18 09:28 Lasix - PO 40 mg DAILY [facility] Administration Hydralazine HCl 25 mg 06/13/18 22:00 06/19/18 13:23 Apresoline - PO 25 mg TID [facility] Administration Cefazolin Sodium 1 gm in 50 mls @ 100 mls/hr 06/14/18 10:00 06/19/18 09:28 Ancef 1 Gm Premixed Ivpb - IVPB 100 mls/hr BID [facility] Administration Insulin Aspart 1 vial 06/13/18 07:00 06/19/18 12:13 Novolog Vial Sliding Scale - SQ Not Given ACHS [facility] Protocol Insulin Detemir 20 units 06/12/18 22:00 06/19/18 06:09 Levemir Vial SQ 20 units BID@0700,2200 [facility] Administration Isosorbide Dinitrate 5 mg 06/15/18 11:00 06/19/18 09:31 Isordil - PO 5 mg BIDISORDIL [facility] Administration Sodium Bicarbonate 325 mg 06/17/18 16:00 06/19/18 09:30 Sodium Bicarbonate - PO 325 mg BID [facility] Administration Impression 1. CKD 2. elevated cardiac enzymes 3. DM 4. chest pain 5. hyperlipidemia 6. HTN 7. hx of Wilms tumor, s/p left nephrectomy 8. hyperkalemia Plan - cont abx - cont po bicarb for now - potassium improved - will hold off HD until fistula is mature
[2018-06-19] MEDS ORDERED: FUROSEMIDE 40 MG/4 ML INJECTABLE VIAL IVPUSH ONE (15:52)
--- NOTE | 2018-06-19 16:08 | PN ---
Progress Note, Physician Chief Complaint: patient seen and examined spike temp yesterday and again in afternoon today 100.2 foot wound dressing removed and seen - Current Medication List Current Medications: Active Medications Amlodipine Besylate (Norvasc -) 10 mg PO DAILY [facility] Last Admin: 06/19/18 09:28 Dose: 10 mg Aspirin (Ecotrin -) 81 mg PO DAILY [facility] Last Admin: 06/19/18 09:28 Dose: 81 mg Atorvastatin Calcium (Lipitor -) 20 mg PO HS [facility] Last Admin: 06/18/18 21:55 Dose: 20 mg Collagenase (Santyl -) 1 applic TP DAILY [facility]; Protocol Last Admin: 06/19/18 09:29 Dose: 1 applic Cyanocobalamin (Vitamin B12 -) 1,000 mcg PO DAILY [facility] Last Admin: 06/19/18 09:28 Dose: 1,000 mcg Furosemide (Lasix Injection -) 20 mg IVPUSH ONCE ONE Stop: 06/19/18 15:53 Furosemide (Lasix Injection -) 40 mg IVPUSH DAILY [facility] Hydralazine HCl (Apresoline -) 25 mg PO TID [facility] Last Admin: 06/19/18 13:23 Dose: 25 mg Cefazolin Sodium (Ancef 1 Gm Premixed Ivpb -) 1 gm in 50 mls @ 100 mls/hr IVPB BID [facility] Last Admin: 06/19/18 09:28 Dose: 100 mls/hr Insulin Aspart (Novolog Vial Sliding Scale -) 1 vial SQ ACHS [facility]; Protocol Last Admin: 06/19/18 12:13 Dose: Not Given Insulin Detemir (Levemir Vial) 20 units SQ BID@0700,2200 [facility] Last Admin: 06/19/18 06:09 Dose: 20 units Isosorbide Dinitrate (Isordil -) 5 mg PO BIDISORDIL [facility] Last Admin: 06/19/18 09:31 Dose: 5 mg Sodium Bicarbonate (Sodium Bicarbonate -) 325 mg PO BID [facility] Last Admin: 06/19/18 09:30 Dose: 325 mg - Objective Vital Signs: Vital Signs Temperature 100 F H 06/19/18 15:00 Pulse Rate 102 H 06/19/18 15:00 Respiratory Rate 20 06/19/18 15:00 Blood Pressure 149/80 06/19/18 15:00 O2 Sat by Pulse Oximetry (%) 93 L 06/19/18 09:00 Constitutional: Yes: Calm Cardiovascular: Yes: Regular Rate and Rhythm, S1, S2 Respiratory: Yes: Diminished Gastrointestinal: Yes: Normal Bowel Sounds, Soft Extremities: Yes: Erythema (of the toe) Edema: Yes Wound/Incision: Yes: Dressing Removed Neurological: Yes: Alert, Oriented Labs: CBC, BMP 06/16/18 05:30 06/19/18 08:00 INR, PTT INR 1.14 (0.83-1.09) H 06/12/18 23:30 Problem List - Problems (1) Fever Assessment/Plan: blood cultures ID follow up iv abx Code(s): R50.9 - FEVER, UNSPECIFIED (2) Wound, open, toe Assessment/Plan: podiatry on board MRI - no evidence of osteomyltis santly to the wound iv cefazolin Code(s): S91.109A - UNSP OPEN WOUND OF UNSP TOE(S) W/O DAMAGE TO NAIL, INIT (3) Elevated troponin Assessment/Plan: trend troponin- down wards cardiology on board to review stress test Ejection Fraction 30% and small areas of ischemia echo at least mildly reduced LV fx iv heparin stop Code(s): R74.8 - ABNORMAL LEVELS OF OTHER SERUM ENZYMES (4) Chronic renal disease Assessment/Plan: iv lasix for leg edema no dvt po bicarbonate Code(s): N18.9 - CHRONIC KIDNEY DISEASE, UNSPECIFIED (5) Diabetes Assessment/Plan: insulin bid Code(s): E11.9 - TYPE 2 DIABETES MELLITUS WITHOUT COMPLICATIONS Qualifiers: Diabetes mellitus type: type 1 Diabetes mellitus complication status: with skin complications Diabetes mellitus complication detail: with foot ulcer Qualified Code(s): E10.621 - Type 1 diabetes mellitus with foot ulcer (6) D-dimer, elevated Assessment/Plan: vq scan- no PE Code(s): R79.89 - OTHER SPECIFIED ABNORMAL FINDINGS OF BLOOD CHEMISTRY Assessment/Plan cxr repeat inc congestion will give iv lasix will stop po lasix continue iv lasix 40mg daily from [facility] cancel discharge order
--- NOTE | 2018-06-19 16:08 | PN ---
Progress Note (short form) - Note Progress Note: asked to f/u by dr zacarias for fever overnight has a persistent cough no diarrhea on cefazolin for LLE cellulitis that has resolved Vital Signs Period Temp Pulse Resp BP Sys/Barrera Pulse Ox Last 24 Hr 98 F-100.9 F 98-111 20-22 143-156/76-85 93-94 cor-rrr lungs few crackles abd soft, multiple scars well healed ext no erythema, dy ulcer riht big toe AVG site no erythema CBC, BMP 06/16/18 05:30 06/19/18 08:00 Microbiology 06/13/18 19:00 Blood - Peripheral Venous Blood Culture - Final NO GROWTH AFTER 5 DAYS INCUBATION 06/13/18 19:30 Blood - Peripheral Venous Blood Culture - Final NO GROWTH AFTER 5 DAYS INCUBATION 06/12/18 21:00 Blood - Peripheral Venous Blood Culture - Final NO GROWTH AFTER 5 DAYS INCUBATION cxray increased congestion MRI of toe no osteomyelitis a/p fevers ?pneumonia cellulitis has resolved blood cultures, cbc now chest ct no contrast zosyn after cultures d/w nurse- orders reviewed history of DM/CKD Problem List - Problems (1) Chills (without fever) Code(s): R68.83 - CHILLS (WITHOUT FEVER) (2) Cellulitis Code(s): L03.90 - CELLULITIS, UNSPECIFIED (3) Wound, open, toe Code(s): S91.109A - UNSP OPEN WOUND OF UNSP TOE(S) W/O DAMAGE TO NAIL, INIT (4) CKD (chronic kidney disease) Code(s): N18.9 - CHRONIC KIDNEY DISEASE, UNSPECIFIED (5) Diabetes Code(s): E11.9 - TYPE 2 DIABETES MELLITUS WITHOUT COMPLICATIONS Qualifiers: Diabetes mellitus type: type 1 Diabetes mellitus complication status: with skin complications Diabetes mellitus complication detail: with foot ulcer Qualified Code(s): E10.621 - Type 1 diabetes mellitus with foot ulcer
[2018-06-19 17:18] LABS: BASO % 2.1 % (0-2.0); EOS % 4.5 % (0-4.5); HEMATOCRIT 31.8 % (35.4-49); HEMOGLOBIN 10.3 GM/dL (11.7-16.9); MCH 27.4 pg (25.7-33.7); MCHC 32.4 g/dl (32.0-35.9); MEAN CELL VOLUME 84.6 fl (80-96); MEAN PLT VOLUME 7.6 fl (7.5-11.1); MONO % 12.7 % (3.8-10.2); NEUT % 75.7 % (42.8-82.8); PLATELET COUNT 236 K/MM3 (134-434); RBC 3.76 M/mm3 (4.00-5.60); RDW 14.5 % (11.9-15.9); WHITE BLOOD COUNT 5.6 K/mm3 (4.0-10.0)
[2018-06-19] MEDS ORDERED: PIPERACILLIN/TAZOBACTAM 2.25 GM VIAL IVPB ONE (17:32)
[2018-06-19] MEDS ORDERED: DEXTROSE 5%-WATER - 50 ML IVPB ONE (17:32)
[2018-06-19] MEDS: PIPERACILLIN/TAZOB 2.25 GM 2.25 GM in DEXTROSE 5%-WATER - 50 ML IVPB SCH (17:53)
[2018-06-19] MEDS ORDERED: INSULIN (NOVOLOG) ASPART 100 UNITS/ML 10ML VIAL ONE (21:03)
[2018-06-19] MEDS: ATORVASTATIN CA 20 MG TABLET (FP) PO SCH (21:12)
[2018-06-19] MEDS: ACETAMINOPHEN 325 MG TABLET (FP) PO PRN (21:12)
[2018-06-20] MEDS ORDERED: PIPERACILLIN/TAZOBACTAM 2.25 GM VIAL IVPB ONE ×3 (00:26→17:36)
[2018-06-20] MEDS ORDERED: DEXTROSE 5%-WATER - 50 ML IVPB ONE ×3 (00:26→17:36)
[2018-06-20] MEDS: PIPERACILLIN/TAZOB 2.25 GM 2.25 GM in DEXTROSE 5%-WATER - 50 ML IVPB SCH ×3 (01:30→17:41)
[2018-06-20] MEDS: ACETAMINOPHEN 325 MG TABLET (FP) PO PRN ×3 (06:20→21:48)
[2018-06-20] MEDS: hydrALAZINE HCL 25 MG TABLET (FP) PO SCH ×3 (06:20→21:49)
[2018-06-20] MEDS: INSULIN SLIDING SCALE (NOVOLOG) 1 VIAL SQ SCH ×4 (06:22→21:50)
[2018-06-20] MEDS: INSULIN (LEVEMIR) 100 UNITS/ML UNITS SQ SCH ×2 (06:22→21:49)
[2018-06-20 07:08] LABS: BASO % 2.1 % (0-2.0); EOS % 2.1 % (0-4.5); HEMATOCRIT 29.1 % (35.4-49); HEMOGLOBIN 9.8 GM/dL (11.7-16.9); LYMPH % 4.7 % (8-40); MCH 27.9 pg (25.7-33.7); MCHC 33.7 g/dl (32.0-35.9); MEAN CELL VOLUME 82.8 fl (80-96); MEAN PLT VOLUME 7.6 fl (7.5-11.1); NEUT % 78.1 % (42.8-82.8); PLATELET COUNT 223 K/MM3 (134-434); RBC 3.51 M/mm3 (4.00-5.60); RDW 14.5 % (11.9-15.9); WHITE BLOOD COUNT 5.3 K/mm3 (4.0-10.0)
[2018-06-20 07:38] LABS: ALBUMIN 2.8 g/dl (3.4-5.0); ALK PHOS 121 U/L (45-117); ANION GAP 8 MMOL/L (8-16); BILIRUBIN,TOTAL 0.4 mg/dL (0.2-1); BLOOD UREA NITROGEN 57 mg/dL (7-18); CHLORIDE 107 mmol/L (98-107); CO2 24 mmol/L (21-32); CREATININE 5.1 mg/dL (0.55-1.3); GLUCOSE,RANDOM 151 mg/dL (74-106); POTASSIUM 4.5 mmol/L (3.5-5.1); SGOT/AST 26 U/L (15-37); SGPT/ALT < 6 U/L (13-61); SODIUM 139 mmol/L (136-145)
--- NOTE | 2018-06-20 09:03 | PN ---
Progress Note, Physician Chief Complaint: Denies CP, SOB TELE: Sinus, sinus tach - Current Medication List Current Medications: Active Medications Acetaminophen (Tylenol -) 650 mg PO Q6H PRN PRN Reason: FEVER Last Admin: 06/20/18 06:20 Dose: 650 mg Amlodipine Besylate (Norvasc -) 10 mg PO DAILY [facility] Last Admin: 06/19/18 09:28 Dose: 10 mg Aspirin (Ecotrin -) 81 mg PO DAILY [facility] Last Admin: 06/19/18 09:28 Dose: 81 mg Atorvastatin Calcium (Lipitor -) 20 mg PO HS [facility] Last Admin: 06/19/18 21:12 Dose: 20 mg Collagenase (Santyl -) 1 applic TP DAILY [facility]; Protocol Last Admin: 06/19/18 09:29 Dose: 1 applic Cyanocobalamin (Vitamin B12 -) 1,000 mcg PO DAILY [facility] Last Admin: 06/19/18 09:28 Dose: 1,000 mcg Furosemide (Lasix Injection -) 40 mg IVPUSH DAILY [facility] Hydralazine HCl (Apresoline -) 25 mg PO TID [facility] Last Admin: 06/20/18 06:20 Dose: 25 mg Piperacillin Sod/Tazobactam (Sod 2.25 gm/ Dextrose) 50 mls @ 100 mls/hr IVPB Q8H-IV [facility]; Protocol Last Admin: 06/20/18 01:30 Dose: 100 mls/hr Insulin Aspart (Novolog Vial Sliding Scale -) 1 vial SQ ACHS [facility]; Protocol Last Admin: 06/20/18 06:22 Dose: Not Given Insulin Detemir (Levemir Vial) 20 units SQ BID@0700,2200 [facility] Last Admin: 06/20/18 06:22 Dose: 20 units Isosorbide Dinitrate (Isordil -) 5 mg PO BIDISORDIL [facility] Last Admin: 06/19/18 17:53 Dose: 5 mg Sodium Bicarbonate (Sodium Bicarbonate -) 325 mg PO BID [facility] Last Admin: 06/19/18 21:13 Dose: 325 mg - Objective Vital Signs: Vital Signs Temperature 100.3 F H 06/20/18 06:00 Pulse Rate 116 H 06/20/18 06:00 Respiratory Rate 18 06/20/18 06:00 Blood Pressure 158/79 06/20/18 06:00 O2 Sat by Pulse Oximetry (%) 92 L 06/19/18 21:00 Constitutional: Yes: No Distress Cardiovascular: Yes: Regular Rate and Rhythm Respiratory: Yes: CTA Bilaterally Gastrointestinal: Yes: Soft Edema: No Neurological: Yes: Alert, Oriented ...Motor Strength: WNL Labs: CBC, BMP 06/20/18 05:30 06/20/18 05:30 INR, PTT INR 1.14 (0.83-1.09) H 06/12/18 23:30 Laboratory Tests 06/16/18 06/20/18 06/20/18 05:30 05:30 05:30 WBC 5.3 Hgb 9.8 L Hct 29.1 L Plt Count 223 PTT (Actin FS) 58.8 H Sodium 139 Potassium 4.5 BUN 57 H Creatinine 5.1 H - ....Imaging EKG: Image Reviewed Assessment/Plan Assessment/Plan 1. Elevated troponin, abnormal stress test/Dyspnea: - trop 0.47, EKG no ischemic changes, history less consistent with ACS - recent mibi 04/2018 showed EF 30% and small area of mild ischemia. Images reviewed , mild apical ischemia with EF 30% range. - asymptomatic currently, however with elevated trop as above. Angiogram deferred given ESRD not yet on HD and contrast allergy - continue aspirin, statin - echo technically difficult, overall at least mildly reduced LV fx - concern for foot infection - may be 2/2 demand ischemia - V/Q scan negative for PE, heparin dc'ed 2. Cardiomyopathy: - EF 30% on mibi - echo confrims at least mild LV dysfx - no bb given history of worsening dyspnea and wheezing with metoprolol, no MERRILL/ ARB given CKD -Medical management of underlying possible CAD as above -continue hydralazine, imdur 3. L toe ulcer: - manage per podiatry, vascular 4. HTN: - stable, continue home meds 5. DM: - manage per primary, endo 6. CKD: - nephrology consulted. Diuretics as per renal - recent AV fistula placement 7.HLD: - cont statin
[2018-06-20] MEDS ORDERED: FUROSEMIDE 40 MG/4 ML INJECTABLE VIAL IVPUSH SCH (10:00)
[2018-06-20] MEDS ORDERED: PT OWN MED DRAWER 7, Y5N ONE ×3 (10:01→17:36)
[2018-06-20] MEDS: SODIUM BICARBONATE 325 MG TABLET PO SCH ×2 (10:04→21:48)
[2018-06-20] MEDS: ISOSORBIDE DINITRATE 5 MG TABLET PO SCH ×2 (10:05→17:40)
[2018-06-20] MEDS: ASPIRIN COATED 81 MG TABLET.EC PO SCH (10:05)
[2018-06-20] MEDS: CYANOCOBALAMIN 1,000 MCG TABLET (FP) PO SCH (10:05)
[2018-06-20] MEDS: amLODIPine BESYLATE 10 MG TABLET (FP) PO SCH (10:05)
[2018-06-20] MEDS: COLLAGENASE CLOSTRIDIUM HIST. 30 GRAMS TUBE TP SCH (11:33)
--- NOTE | 2018-06-20 11:37 | PN ---
Progress Note, Physician History of Present Illness: pulmonary alert,+ cough chest ct rul consolidation ,pt placed on iv abx as per id - Current Medication List Current Medications: Active Medications Acetaminophen (Tylenol -) 650 mg PO Q6H PRN PRN Reason: FEVER Last Admin: 06/20/18 06:20 Dose: 650 mg Amlodipine Besylate (Norvasc -) [address] [facility] Last Admin: 06/20/18 10:05 Dose: 10 mg Aspirin (Ecotrin -) 81 mg PO DAILY [facility] Last Admin: 06/20/18 10:05 Dose: 81 mg Atorvastatin Calcium (Lipitor -) [address] [facility] Last Admin: 06/19/18 21:12 Dose: 20 mg Collagenase (Santyl -) [address] [facility]; Protocol Last Admin: 06/20/18 11:33 Dose: 1 applic Cyanocobalamin (Vitamin B12 -) 1,[address] [facility] Last Admin: 06/20/18 10:05 Dose: 1,000 mcg Furosemide (Lasix Injection -) [address] [facility] Last Admin: 06/20/18 09:45 Dose: 40 mg Hydralazine HCl (Apresoline -) [address] [facility] Last Admin: 06/20/18 06:20 Dose: 25 mg Piperacillin Sod/Tazobactam (Sod 2.25 gm/ Dextrose) 50 mls @ 100 mls/hr IVPB Q8H-IV [facility]; Protocol Last Admin: 06/20/18 10:11 Dose: 100 mls/hr Insulin Aspart (Novolog Vial Sliding Scale -) [address] [facility]; Protocol Last Admin: 06/20/18 11:31 Dose: Not Given Insulin Detemir (Levemir Vial) 20 units SQ BID@0700,2200 [facility] Last Admin: 06/20/18 06:22 Dose: 20 units Isosorbide Dinitrate (Isordil -) [address] [facility] Last Admin: 06/20/18 10:05 Dose: 5 mg Sodium Bicarbonate (Sodium Bicarbonate -) [address] [facility] Last Admin: 06/20/18 10:04 Dose: 325 mg - Objective Vital Signs: Vital Signs Temperature 98.8 F 06/20/18 10:00 Pulse Rate 101 H 06/20/18 10:00 Respiratory Rate 18 06/20/18 10:00 Blood Pressure 147/79 06/20/18 10:00 O2 Sat by Pulse Oximetry (%) 95 06/20/18 09:00 Constitutional: Yes: Well Nourished, Calm Eyes: Yes: WNL HENT: Yes: WNL Neck: Yes: WNL Cardiovascular: Yes: Regular Rate and Rhythm, S1, S2 Respiratory: Yes: Rhonchi (RHONCHI ON R) Gastrointestinal: Yes: Normal Bowel Sounds, Soft Extremities: Yes: WNL Edema: Yes Labs: CBC, BMP 06/20/18 05:30 06/20/18 05:30 INR, PTT INR 1.14 (0.83-1.09) H 06/12/18 23:30 - ....Imaging Cat Scan: Report Reviewed, Image Reviewed Problem List - Problems (1) Dyspnea Code(s): R06.00 - DYSPNEA, UNSPECIFIED (2) D-dimer, elevated Code(s): R79.89 - OTHER SPECIFIED ABNORMAL FINDINGS OF BLOOD CHEMISTRY (3) Elevated troponin Code(s): R74.8 - ABNORMAL LEVELS OF OTHER SERUM ENZYMES (4) Wound, open, toe Code(s): S91.109A - UNSP OPEN WOUND OF UNSP TOE(S) W/O DAMAGE TO NAIL, INIT (5) Acute kidney injury superimposed on chronic kidney disease Code(s): N17.9 - ACUTE KIDNEY FAILURE, UNSPECIFIED; N18.9 - CHRONIC KIDNEY DISEASE, UNSPECIFIED (6) CKD (chronic kidney disease) Code(s): N18.9 - CHRONIC KIDNEY DISEASE, UNSPECIFIED (7) HTN (hypertension) Code(s): I10 - ESSENTIAL (PRIMARY) HYPERTENSION Qualifiers: Hypertension type: essential hypertension Qualified Code(s): I10 - Essential (primary) hypertension (8) Hypercholesterolemia Code(s): E78.0 - PURE HYPERCHOLESTEROLEMIA * DO NOT USE * (9) Troponin I above reference range Code(s): R74.8 - ABNORMAL LEVELS OF OTHER SERUM ENZYMES (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 UNDERLYING MILD OBSTRUCTIVE AIRWAY DISEASE SYMPTOMS EXACERBATED BY BETA-BLOCKERS,+ CARDIOMYOPATHY CKD + TROPONIN HTN DM H/O WILMS TUMOR S/P L NEPHRECTOMY PULMONARY HTN REBECCA AHI 26.5 ON SLEEP SCREEN LEFT FOOT ULCER PNEUMONIA PLAN PFTS OUTPATIENT FORMAL SLEEP STUDIES OUTPATIENT DAILY WT DVT PROPHYLAXIS ABX PER MARIANELA MCDANIEL Problem List - Problems (1) Dyspnea Code(s): R06.00 - DYSPNEA, UNSPECIFIED (2) D-dimer, elevated Code(s): R79.89 - OTHER SPECIFIED ABNORMAL FINDINGS OF BLOOD CHEMISTRY (3) Elevated troponin Code(s): R74.8 - ABNORMAL LEVELS OF OTHER SERUM ENZYMES (4) Wound, open, toe Code(s): S91.109A - UNSP OPEN WOUND OF UNSP TOE(S) W/O DAMAGE TO NAIL, INIT (5) Acute kidney injury superimposed on chronic kidney disease Code(s): N17.9 - ACUTE KIDNEY FAILURE, UNSPECIFIED; N18.9 - CHRONIC KIDNEY DISEASE, UNSPECIFIED (6) CKD (chronic kidney disease) Code(s): N18.9 - CHRONIC KIDNEY DISEASE, UNSPECIFIED (7) HTN (hypertension) Code(s): I10 - ESSENTIAL (PRIMARY) HYPERTENSION Qualifiers: Hypertension type: essential hypertension Qualified Code(s): I10 - Essential (primary) hypertension (8) Hypercholesterolemia Code(s): E78.0 - PURE HYPERCHOLESTEROLEMIA * DO NOT USE * (9) Troponin I above reference range Code(s): R74.8 - ABNORMAL LEVELS OF OTHER SERUM ENZYMES (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
--- NOTE | 2018-06-20 12:38 | PN ---
Progress Note (short form) - Note Progress Note: awake and alert still with cough Vital Signs Period Temp Pulse Resp BP Sys/Barrera Pulse Ox Last 24 Hr 98.8 F-100.3 F 101-116 18-20 128-158/69-82 92-95 cor-rrr llungs decreased bs at bases, scattered rhonchi abd soft,nt ext less edema LLE no erythema CBC, BMP 06/20/18 05:30 06/20/18 05:[address] with rul infiltrate Microbiology 06/19/18 21:45 Urine For Antigen Detection Legionella Antigen - Final 06/19/18 21:45 Urine For Antigen Detection Streptococcus pneumoniae Antigen (M - Final 06/13/18 19:00 Blood - Peripheral Venous Blood Culture - Final NO GROWTH AFTER 5 DAYS INCUBATION 06/13/18 19:30 Blood - Peripheral Venous Blood Culture - Final NO GROWTH AFTER 5 DAYS INCUBATION 06/12/18 21:00 Blood - Peripheral Venous Blood Culture - Final NO GROWTH AFTER 5 DAYS INCUBATION MRI of toe no osteomyelitis Current Medications Acetaminophen (Tylenol -) 650 mg PO Q6H PRN PRN Reason: FEVER Last Admin: 06/20/18 06:20 Dose: 650 mg Amlodipine Besylate (Norvasc -) 10 mg PO DAILY [facility] Last Admin: 06/20/18 10:05 Dose: 10 mg Aspirin (Ecotrin -) 81 mg PO DAILY [facility] Last Admin: 06/20/18 10:05 Dose: 81 mg Atorvastatin Calcium (Lipitor -) 20 mg PO HS [facility] Last Admin: 06/19/18 21:12 Dose: 20 mg Collagenase (Santyl -) 1 applic TP DAILY [facility]; Protocol Last Admin: 06/20/18 11:33 Dose: 1 applic Cyanocobalamin (Vitamin B12 -) 1,000 mcg PO DAILY [facility] Last Admin: 06/20/18 10:05 Dose: 1,000 mcg Furosemide (Lasix Injection -) 40 mg IVPUSH DAILY [facility] Last Admin: 06/20/18 09:45 Dose: 40 mg Hydralazine HCl (Apresoline -) 25 mg PO TID [facility] Last Admin: 06/20/18 06:20 Dose: 25 mg Piperacillin Sod/Tazobactam (Sod 2.25 gm/ Dextrose) 50 mls @ 100 mls/hr IVPB Q8H-IV [facility]; Protocol Last Admin: 06/20/18 10:11 Dose: 100 mls/hr Insulin Aspart (Novolog Vial Sliding Scale -) 1 vial SQ ACHS [facility]; Protocol Last Admin: 06/20/18 11:31 Dose: Not Given Insulin Detemir (Levemir Vial) 20 units SQ BID@0700,2200 [facility] Last Admin: 06/20/18 06:22 Dose: 20 units Isosorbide Dinitrate (Isordil -) 5 mg PO BIDISORDIL [facility] Last Admin: 06/20/18 10:05 Dose: 5 mg Sodium Bicarbonate (Sodium Bicarbonate -) 325 mg PO BID [facility] Last Admin: 06/20/18 10:04 Dose: 325 mg a/p fevers RUL pneumonia cellulitis has resolved urinary antigens negative continue zosyn adjusted for CKD history of DM/CKD d/w hospitalist Problem List - Problems (1) Chills (without fever) Code(s): R68.83 - CHILLS (WITHOUT FEVER) (2) Cellulitis Code(s): L03.90 - CELLULITIS, UNSPECIFIED (3) Wound, open, toe Code(s): S91.109A - UNSP OPEN WOUND OF UNSP TOE(S) W/O DAMAGE TO NAIL, INIT (4) CKD (chronic kidney disease) Code(s): N18.9 - CHRONIC KIDNEY DISEASE, UNSPECIFIED (5) Diabetes Code(s): E11.9 - TYPE 2 DIABETES MELLITUS WITHOUT COMPLICATIONS Qualifiers: Diabetes mellitus type: type 1 Diabetes mellitus complication status: with skin complications Diabetes mellitus complication detail: with foot ulcer Qualified Code(s): E10.621 - Type 1 diabetes mellitus with foot ulcer
--- NOTE | 2018-06-20 12:49 | PN ---
Progress Note, Physician Chief Complaint: patient in bed with chills low grade temperature ct chest positive for PNA - Current Medication List Current Medications: Active Medications Acetaminophen (Tylenol -) 650 mg PO Q6H PRN PRN Reason: FEVER Last Admin: 06/20/18 06:20 Dose: 650 mg Amlodipine Besylate (Norvasc -) 10 mg PO DAILY [facility] Last Admin: 06/20/18 10:05 Dose: 10 mg Aspirin (Ecotrin -) 81 mg PO DAILY [facility] Last Admin: 06/20/18 10:05 Dose: 81 mg Atorvastatin Calcium (Lipitor -) 20 mg PO HS [facility] Last Admin: 06/19/18 21:12 Dose: 20 mg Collagenase (Santyl -) 1 applic TP DAILY [facility]; Protocol Last Admin: 06/20/18 11:33 Dose: 1 applic Cyanocobalamin (Vitamin B12 -) 1,000 mcg PO DAILY [facility] Last Admin: 06/20/18 10:05 Dose: 1,000 mcg Furosemide (Lasix Injection -) 40 mg IVPUSH DAILY [facility] Last Admin: 06/20/18 09:45 Dose: 40 mg Hydralazine HCl (Apresoline -) 25 mg PO TID [facility] Last Admin: 06/20/18 06:20 Dose: 25 mg Piperacillin Sod/Tazobactam (Sod 2.25 gm/ Dextrose) 50 mls @ 100 mls/hr IVPB Q8H-IV [facility]; Protocol Last Admin: 06/20/18 10:11 Dose: 100 mls/hr Insulin Aspart (Novolog Vial Sliding Scale -) 1 vial SQ ACHS [facility]; Protocol Last Admin: 06/20/18 11:31 Dose: Not Given Insulin Detemir (Levemir Vial) 20 units SQ BID@0700,2200 [facility] Last Admin: 06/20/18 06:22 Dose: 20 units Isosorbide Dinitrate (Isordil -) 5 mg PO BIDISORDIL [facility] Last Admin: 06/20/18 10:05 Dose: 5 mg Sodium Bicarbonate (Sodium Bicarbonate -) 325 mg PO BID [facility] Last Admin: 06/20/18 10:04 Dose: 325 mg - Objective Vital Signs: Vital Signs Temperature 98.8 F 06/20/18 10:00 Pulse Rate 101 H 06/20/18 10:00 Respiratory Rate 18 06/20/18 10:00 Blood Pressure 147/79 06/20/18 10:00 O2 Sat by Pulse Oximetry (%) 95 06/20/18 09:00 Constitutional: Yes: Calm Cardiovascular: Yes: Regular Rate and Rhythm, S1, S2 Respiratory: Yes: Diminished Gastrointestinal: Yes: Normal Bowel Sounds, Soft Edema: No Neurological: Yes: Alert, Oriented Labs: CBC, BMP 06/20/18 05:30 06/20/18 05:30 INR, PTT INR 1.14 (0.83-1.09) H 06/12/18 23:30 Problem List - Problems (1) Fever Assessment/Plan: blood cultures ID follow up iv abx- zosyn for PNA Microbiology 06/19/18 21:45 Urine For Antigen Detection Legionella Antigen - Final 06/19/18 21:45 Urine For Antigen Detection Streptococcus pneumoniae Antigen (M - Final 06/13/18 19:30 Blood - Peripheral Venous Blood Culture - Final NO GROWTH AFTER 5 DAYS INCUBATION 06/13/18 19:00 Blood - Peripheral Venous Blood Culture - Final NO GROWTH AFTER 5 DAYS INCUBATION 06/12/18 21:00 Blood - Peripheral Venous Blood Culture - Final NO GROWTH AFTER 5 DAYS INCUBATION Code(s): R50.9 - FEVER, UNSPECIFIED (2) Wound, open, toe Assessment/Plan: podiatry on board MRI - no evidence of osteomyltis santly to the wound iv cefazolin course done Code(s): S91.109A - UNSP OPEN WOUND OF UNSP TOE(S) W/O DAMAGE TO NAIL, INIT (3) Elevated troponin Assessment/Plan: trend troponin- down wards cardiology on board to review stress test Ejection Fraction 30% and small areas of ischemia echo at least mildly reduced LV fx iv heparin stop Code(s): R74.8 - ABNORMAL LEVELS OF OTHER SERUM ENZYMES (4) Chronic renal disease Assessment/Plan: iv lasix for leg edema will stop lasix given in crease in creatinine no dvt po bicarbonate Code(s): N18.9 - CHRONIC KIDNEY DISEASE, UNSPECIFIED (5) Diabetes Assessment/Plan: insulin bid Code(s): E11.9 - TYPE 2 DIABETES MELLITUS WITHOUT COMPLICATIONS Qualifiers: Diabetes mellitus type: type 1 Diabetes mellitus complication status: with skin complications Diabetes mellitus complication detail: with foot ulcer Qualified Code(s): E10.621 - Type 1 diabetes mellitus with foot ulcer (6) D-dimer, elevated Code(s): R79.89 - OTHER SPECIFIED ABNORMAL FINDINGS OF BLOOD CHEMISTRY
--- NOTE | 2018-06-20 15:04 | PN ---
Progress Note, Physician History of Present Illness: Pt seen and examined at bedside. He is awake and alert. He has a cough. - Current Medication List Current Medications: Active Medications Acetaminophen (Tylenol -) 650 mg PO Q6H PRN PRN Reason: FEVER Last Admin: 06/20/18 06:20 Dose: 650 mg Amlodipine Besylate (Norvasc -) 10 mg PO DAILY [facility] Last Admin: 06/20/18 10:05 Dose: 10 mg Aspirin (Ecotrin -) 81 mg PO DAILY [facility] Last Admin: 06/20/18 10:05 Dose: 81 mg Atorvastatin Calcium (Lipitor -) 20 mg PO HS [facility] Last Admin: 06/19/18 21:12 Dose: 20 mg Collagenase (Santyl -) 1 applic TP DAILY [facility]; Protocol Last Admin: 06/20/18 11:33 Dose: 1 applic Cyanocobalamin (Vitamin B12 -) 1,000 mcg PO DAILY [facility] Last Admin: 06/20/18 10:05 Dose: 1,000 mcg Hydralazine HCl (Apresoline -) 25 mg PO TID [facility] Last Admin: 06/20/18 14:45 Dose: 25 mg Piperacillin Sod/Tazobactam (Sod 2.25 gm/ Dextrose) 50 mls @ 100 mls/hr IVPB Q8H-IV [facility]; Protocol Last Admin: 06/20/18 10:11 Dose: 100 mls/hr Insulin Aspart (Novolog Vial Sliding Scale -) 1 vial SQ ACHS [facility]; Protocol Last Admin: 06/20/18 11:31 Dose: Not Given Insulin Detemir (Levemir Vial) 20 units SQ BID@0700,2200 [facility] Last Admin: 06/20/18 06:22 Dose: 20 units Isosorbide Dinitrate (Isordil -) 5 mg PO BIDISORDIL [facility] Last Admin: 06/20/18 10:05 Dose: 5 mg Sodium Bicarbonate (Sodium Bicarbonate -) 325 mg PO BID [facility] Last Admin: 06/20/18 10:04 Dose: 325 mg - Objective Vital Signs: Vital Signs Temperature 98.8 F 06/20/18 10:00 Pulse Rate 101 H 06/20/18 10:00 Respiratory Rate 18 06/20/18 10:00 Blood Pressure 147/79 06/20/18 10:00 O2 Sat by Pulse Oximetry (%) 95 06/20/18 09:00 Constitutional: Yes: Calm Eyes: Yes: Conjunctiva Clear HENT: Yes: Atraumatic Neck: Yes: Supple Cardiovascular: Yes: S1, S2 Respiratory: Yes: Rhonchi Gastrointestinal: Yes: Soft Genitourinary: Yes: WNL Musculoskeletal: Yes: WNL Edema: Yes Edema: LLE: Trace, RLE: Trace Neurological: Yes: Oriented Psychiatric: Yes: Oriented Labs: CBC, BMP 06/20/18 05:30 06/20/18 05:30 INR, PTT INR 1.14 (0.83-1.09) H 06/12/18 23:30 - ....Imaging Cat Scan: Report Reviewed Problem List - Problems (1) Cellulitis Code(s): L03.90 - CELLULITIS, UNSPECIFIED (2) CKD (chronic kidney disease) Code(s): N18.9 - CHRONIC KIDNEY DISEASE, UNSPECIFIED Assessment/Plan Current Medications Generic Name Dose Route Start Last Admin Trade Name Freq PRN Reason Stop Dose Admin Acetaminophen 650 mg 06/19/18 20:47 06/20/18 06:20 Tylenol - PO 650 mg Q6H PRN Administration FEVER Amlodipine Besylate 10 mg 06/13/18 10:00 06/20/18 10:05 Norvasc - PO 10 mg DAILY [facility] Administration Aspirin 81 mg 06/13/18 10:00 06/20/18 10:05 Ecotrin - PO 81 mg DAILY [facility] Administration Atorvastatin Calcium 20 mg 06/13/18 22:00 06/19/18 21:12 Lipitor - PO 20 mg HS [facility] Administration Collagenase 1 applic 06/13/18 11:30 06/20/18 11:33 Santyl - TP 1 applic DAILY [facility] Administration Protocol Cyanocobalamin 1,000 mcg 06/13/18 10:00 06/20/18 10:05 Vitamin B12 - PO 1,000 mcg DAILY [facility] Administration Hydralazine HCl 25 mg 06/13/18 22:00 06/20/18 14:45 Apresoline - PO 25 mg TID [facility] Administration Piperacillin Sod/Tazobactam 50 mls @ 100 mls/hr 06/19/18 18:00 06/20/18 10:11 Sod 2.25 gm/ Dextrose IVPB 100 mls/hr Q8H-IV [facility] Administration Protocol Insulin Aspart 1 vial 06/13/18 07:00 06/20/18 11:31 Novolog Vial Sliding Scale - SQ Not Given ACHS [facility] Protocol Insulin Detemir 20 units 06/12/18 22:00 06/20/18 06:22 Levemir Vial SQ 20 units BID@0700,2200 [facility] Administration Isosorbide Dinitrate 5 mg 06/15/18 11:00 06/20/18 10:05 Isordil - PO 5 mg BIDISORDIL [facility] Administration Sodium Bicarbonate 325 mg 06/17/18 16:00 06/20/18 10:04 Sodium Bicarbonate - PO 325 mg BID [facility] Administration Impression 1. CKD 2. elevated cardiac enzymes 3. DM 4. chest pain 5. hyperlipidemia 6. HTN 7. hx of Wilms tumor, s/p left nephrectomy 8. hyperkalemia Plan - monitor renal function - can restart lasix tomorrow - potassium stable - abx for PNA - will hold off HD until fistula is mature
[2018-06-20] MEDS: ATORVASTATIN CA 20 MG TABLET (FP) PO SCH (21:49)
[2018-06-21] MEDS ORDERED: DEXTROSE 5%-WATER - 50 ML IVPB ONE ×3 (01:13→17:42)
[2018-06-21] MEDS ORDERED: PIPERACILLIN/TAZOBACTAM 2.25 GM VIAL IVPB ONE ×3 (01:13→17:42)
[2018-06-21] MEDS: PIPERACILLIN/TAZOB 2.25 GM 2.25 GM in DEXTROSE 5%-WATER - 50 ML IVPB SCH ×3 (02:27→18:18)
[2018-06-21] MEDS: INSULIN SLIDING SCALE (NOVOLOG) 1 VIAL SQ SCH ×4 (06:10→21:28)
[2018-06-21] MEDS: hydrALAZINE HCL 25 MG TABLET (FP) PO SCH ×3 (06:12→21:27)
[2018-06-21] MEDS: INSULIN (LEVEMIR) 100 UNITS/ML UNITS SQ SCH ×3 (06:12→21:27)
--- NOTE | 2018-06-21 09:58 | PN ---
Progress Note (short form) - Note Progress Note: alert c/o cough and chest congestion Vital Signs Period Temp Pulse Resp BP Sys/Barrera Pulse Ox Last 24 Hr 98.6 F-100.3 F 98-119 18-20 131-167/66-83 95 cor-rrr lungs scattered rhonchi abd soft,nt ext less edema CBC, BMP 06/20/18 05:30 06/20/18 05:[address] with rul infiltrate Microbiology 06/19/18 17:05 Blood - Peripheral Venous Blood Culture - Preliminary NO GROWTH OBTAINED AFTER 24 HOURS, INCUBATION TO CONTINUE FOR 4 DAYS. 06/19/18 16:45 Blood - Peripheral Venous Blood Culture - Preliminary NO GROWTH OBTAINED AFTER 24 HOURS, INCUBATION TO CONTINUE FOR 4 DAYS. 06/19/18 21:45 Urine For Antigen Detection Legionella Antigen - Final 06/19/18 21:45 Urine For Antigen Detection Streptococcus pneumoniae Antigen (M - Final 06/13/18 19:00 Blood - Peripheral Venous Blood Culture - Final NO GROWTH AFTER 5 DAYS INCUBATION 06/13/18 19:30 Blood - Peripheral Venous Blood Culture - Final NO GROWTH AFTER 5 DAYS INCUBATION 06/12/18 21:00 Blood - Peripheral Venous Blood Culture - Final NO GROWTH AFTER 5 DAYS INCUBATION MRI of toe no osteomyelitis Current Medications Acetaminophen (Tylenol -) 650 mg PO Q6H PRN PRN Reason: FEVER Last Admin: 06/20/18 06:20 Dose: 650 mg Amlodipine Besylate (Norvasc -) 10 mg PO DAILY [facility] Last Admin: 06/20/18 10:05 Dose: 10 mg Aspirin (Ecotrin -) 81 mg PO DAILY [facility] Last Admin: 06/20/18 10:05 Dose: 81 mg Atorvastatin Calcium (Lipitor -) 20 mg PO HS [facility] Last Admin: 06/19/18 21:12 Dose: 20 mg Collagenase (Santyl -) 1 applic TP DAILY [facility]; Protocol Last Admin: 06/20/18 11:33 Dose: 1 applic Cyanocobalamin (Vitamin B12 -) 1,000 mcg PO DAILY [facility] Last Admin: 06/20/18 10:05 Dose: 1,000 mcg Furosemide (Lasix Injection -) 40 mg IVPUSH DAILY [facility] Last Admin: 06/20/18 09:45 Dose: 40 mg Hydralazine HCl (Apresoline -) 25 mg PO TID [facility] Last Admin: 06/20/18 06:20 Dose: 25 mg Piperacillin Sod/Tazobactam (Sod 2.25 gm/ Dextrose) 50 mls @ 100 mls/hr IVPB Q8H-IV [facility]; Protocol Last Admin: 06/20/18 10:11 Dose: 100 mls/hr Insulin Aspart (Novolog Vial Sliding Scale -) 1 vial SQ ACHS [facility]; Protocol Last Admin: 06/20/18 11:31 Dose: Not Given Insulin Detemir (Levemir Vial) 20 units SQ BID@0700,2200 [facility] Last Admin: 06/20/18 06:22 Dose: 20 units Isosorbide Dinitrate (Isordil -) 5 mg PO BIDISORDIL [facility] Last Admin: 06/20/18 10:05 Dose: 5 mg Sodium Bicarbonate (Sodium Bicarbonate -) 325 mg PO BID [facility] Last Admin: 06/20/18 10:04 Dose: 325 mg a/p fevers RUL pneumonia cellulitis has resolved urinary antigens negative continue zosyn adjusted for CKD cllinically improving history of DM/CKD d/w hospitalist Problem List - Problems (1) Chills (without fever) Code(s): R68.83 - CHILLS (WITHOUT FEVER) (2) Cellulitis Code(s): L03.90 - CELLULITIS, UNSPECIFIED (3) Wound, open, toe Code(s): S91.109A - UNSP OPEN WOUND OF UNSP TOE(S) W/O DAMAGE TO NAIL, INIT (4) CKD (chronic kidney disease) Code(s): N18.9 - CHRONIC KIDNEY DISEASE, UNSPECIFIED (5) Diabetes Code(s): E11.9 - TYPE 2 DIABETES MELLITUS WITHOUT COMPLICATIONS Qualifiers: Diabetes mellitus type: type 1 Diabetes mellitus complication status: with skin complications Diabetes mellitus complication detail: with foot ulcer Qualified Code(s): E10.621 - Type 1 diabetes mellitus with foot ulcer
--- NOTE | 2018-06-21 10:31 | PN ---
Progress Note, Physician History of Present Illness: No CV complaints Breathing improving Tele: ST 100s - Current Medication List Current Medications: Active Medications Acetaminophen (Tylenol -) 650 mg PO Q6H PRN PRN Reason: FEVER Last Admin: 06/20/18 21:48 Dose: 650 mg Amlodipine Besylate (Norvasc -) 10 mg PO DAILY [facility] Last Admin: 06/20/18 10:05 Dose: 10 mg Aspirin (Ecotrin -) 81 mg PO DAILY [facility] Last Admin: 06/20/18 10:05 Dose: 81 mg Atorvastatin Calcium (Lipitor -) 20 mg PO HS [facility] Last Admin: 06/20/18 21:49 Dose: 20 mg Collagenase (Santyl -) 1 applic TP DAILY [facility]; Protocol Last Admin: 06/20/18 11:33 Dose: 1 applic Cyanocobalamin (Vitamin B12 -) 1,000 mcg PO DAILY [facility] Last Admin: 06/20/18 10:05 Dose: 1,000 mcg Furosemide (Lasix -) 40 mg PO DAILY [facility] Guaifenesin (Robitussin -) 10 ml PO Q8H PRN PRN Reason: COUGH Hydralazine HCl (Apresoline -) 25 mg PO TID [facility] Last Admin: 06/21/18 06:12 Dose: 25 mg Piperacillin Sod/Tazobactam (Sod 2.25 gm/ Dextrose) 50 mls @ 100 mls/hr IVPB Q8H-IV [facility]; Protocol Last Admin: 06/21/18 02:27 Dose: 100 mls/hr Insulin Aspart (Novolog Vial Sliding Scale -) 1 vial SQ ACHS [facility]; Protocol Last Admin: 06/21/18 06:10 Dose: Not Given Insulin Detemir (Levemir Vial) 20 units SQ BID@0700,2200 [facility] Last Admin: 06/21/18 08:03 Dose: 20 units Isosorbide Dinitrate (Isordil -) 5 mg PO BIDISORDIL [facility] Last Admin: 06/20/18 17:40 Dose: 5 mg Sodium Bicarbonate (Sodium Bicarbonate -) 325 mg PO BID [facility] Last Admin: 06/20/18 21:48 Dose: 325 mg - Objective Vital Signs: Vital Signs Temperature 98.6 F 06/21/18 06:00 Pulse Rate 106 H 06/21/18 06:00 Respiratory Rate 20 06/21/18 06:00 Blood Pressure 153/83 06/21/18 06:00 O2 Sat by Pulse Oximetry (%) 95 06/20/18 22:00 Constitutional: Yes: No Distress Cardiovascular: Yes: Regular Rate and Rhythm Respiratory: Yes: Rhonchi, Wheezes Edema: No Labs: CBC, BMP 06/20/18 05:30 06/20/18 05:30 INR, PTT INR 1.14 (0.83-1.09) H 06/12/18 23:30 Assessment/Plan 1. Elevated troponin, abnormal stress test/Dyspnea: - trop 0.47, EKG no ischemic changes, history less consistent with ACS - recent mibi 04/2018 showed EF 30% and small area of mild ischemia. Images reviewed , mild apical ischemia with EF 30% range. - asymptomatic currently, however with elevated trop as above. Angiogram deferred given ESRD not yet on HD and contrast allergy - continue aspirin, statin - echo technically difficult, overall at least mildly reduced LV fx - concern for foot infection - may be 2/2 demand ischemia - V/Q scan negative for PE, heparin dc'ed -06/21: Stable. continue Asa and statin as outlined above. 2. Cardiomyopathy: - EF 30% on mibi - echo confrims at least mild LV dysfx - no bb given history of worsening dyspnea and wheezing with metoprolol, no MERRILL/ ARB given CKD -Medical management of underlying possible CAD as above -continue hydralazine, imdur
[2018-06-21] MEDS: ISOSORBIDE DINITRATE 5 MG TABLET PO SCH ×2 (10:34→18:18)
[2018-06-21] MEDS: ASPIRIN COATED 81 MG TABLET.EC PO SCH (10:34)
[2018-06-21] MEDS: amLODIPine BESYLATE 10 MG TABLET (FP) PO SCH (10:35)
[2018-06-21] MEDS: SODIUM BICARBONATE 325 MG TABLET PO SCH ×2 (10:35→21:27)
[2018-06-21] MEDS: FUROSEMIDE 40 MG TABLET (FP) PO SCH (10:35)
[2018-06-21] MEDS: COLLAGENASE CLOSTRIDIUM HIST. 30 GRAMS TUBE TP SCH (10:35)
[2018-06-21] MEDS: CYANOCOBALAMIN 1,000 MCG TABLET (FP) PO SCH (10:36)
--- NOTE | 2018-06-21 10:56 | PN ---
Progress Note, Physician History of Present Illness: pulmonary alert,no distress,+ cough - Current Medication List Current Medications: Active Medications Acetaminophen (Tylenol -) 650 mg PO Q6H PRN PRN Reason: FEVER Last Admin: 06/20/18 21:48 Dose: 650 mg Amlodipine Besylate (Norvasc -) 10 mg PO DAILY [facility] Last Admin: 06/21/18 10:35 Dose: 10 mg Aspirin (Ecotrin -) 81 mg PO DAILY [facility] Last Admin: 06/21/18 10:34 Dose: 81 mg Atorvastatin Calcium (Lipitor -) 20 mg PO HS [facility] Last Admin: 06/20/18 21:49 Dose: 20 mg Collagenase (Santyl -) 1 applic TP DAILY [facility]; Protocol Last Admin: 06/21/18 10:35 Dose: 1 applic Cyanocobalamin (Vitamin B12 -) 1,000 mcg PO DAILY [facility] Last Admin: 06/21/18 10:36 Dose: 1,000 mcg Furosemide (Lasix -) 40 mg PO DAILY [facility] Last Admin: 06/21/18 10:35 Dose: 40 mg Guaifenesin (Robitussin -) 10 ml PO Q8H PRN PRN Reason: COUGH Hydralazine HCl (Apresoline -) 25 mg PO TID [facility] Last Admin: 06/21/18 06:12 Dose: 25 mg Piperacillin Sod/Tazobactam (Sod 2.25 gm/ Dextrose) 50 mls @ 100 mls/hr IVPB Q8H-IV [facility]; Protocol Last Admin: 06/21/18 10:36 Dose: 100 mls/hr Insulin Aspart (Novolog Vial Sliding Scale -) 1 vial SQ ACHS [facility]; Protocol Last Admin: 06/21/18 06:10 Dose: Not Given Insulin Detemir (Levemir Vial) 20 units SQ BID@0700,2200 [facility] Last Admin: 06/21/18 08:03 Dose: 20 units Isosorbide Dinitrate (Isordil -) 5 mg PO BIDISORDIL [facility] Last Admin: 06/21/18 10:34 Dose: 5 mg Sodium Bicarbonate (Sodium Bicarbonate -) 325 mg PO BID [facility] Last Admin: 06/21/18 10:35 Dose: 325 mg - Objective Vital Signs: Vital Signs Temperature 99.4 F 06/21/18 08:30 Pulse Rate 112 H 06/21/18 08:30 Respiratory Rate 20 06/21/18 08:30 Blood Pressure 150/75 06/21/18 08:30 O2 Sat by Pulse Oximetry (%) 96 06/21/18 09:00 Constitutional: Yes: Calm, Obese Eyes: Yes: WNL HENT: Yes: WNL Neck: Yes: WNL Cardiovascular: Yes: Regular Rate and Rhythm, S1, S2 Respiratory: Yes: Rhonchi (scattered rhonchi) Gastrointestinal: Yes: Normal Bowel Sounds, Soft Extremities: Yes: WNL Edema: Yes Labs: CBC, BMP 06/20/18 05:30 06/20/18 05:30 INR, PTT INR 1.14 (0.83-1.09) H 06/12/18 23:30 Problem List - Problems (1) Dyspnea Code(s): R06.00 - DYSPNEA, UNSPECIFIED (2) D-dimer, elevated Code(s): R79.89 - OTHER SPECIFIED ABNORMAL FINDINGS OF BLOOD CHEMISTRY (3) Elevated troponin Code(s): R74.8 - ABNORMAL LEVELS OF OTHER SERUM ENZYMES (4) Wound, open, toe Code(s): S91.109A - UNSP OPEN WOUND OF UNSP TOE(S) W/O DAMAGE TO NAIL, INIT (5) Acute kidney injury superimposed on chronic kidney disease Code(s): N17.9 - ACUTE KIDNEY FAILURE, UNSPECIFIED; N18.9 - CHRONIC KIDNEY DISEASE, UNSPECIFIED (6) CKD (chronic kidney disease) Code(s): N18.9 - CHRONIC KIDNEY DISEASE, UNSPECIFIED (7) HTN (hypertension) Code(s): I10 - ESSENTIAL (PRIMARY) HYPERTENSION Qualifiers: Hypertension type: essential hypertension Qualified Code(s): I10 - Essential (primary) hypertension (8) Hypercholesterolemia Code(s): E78.0 - PURE HYPERCHOLESTEROLEMIA * DO NOT USE * (9) Troponin I above reference range Code(s): R74.8 - ABNORMAL LEVELS OF OTHER SERUM ENZYMES (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 Assessment/Plan IMP DYSPNEA CARDIOMYOPATHY CKD + TROPONIN HTN DM H/O WILMS TUMOR S/P L NEPHRECTOMY PULMONARY HTN REBECCA AHI 26.5 ON SLEEP SCREEN LEFT FOOT ULCER PNEUMONIA PLAN PFTS OUTPATIENT FORMAL SLEEP STUDIES OUTPATIENT DAILY WT DVT PROPHYLAXIS ABX PER MARIANELA MCDANIEL Problem List - Problems (1) Dyspnea Code(s): R06.00 - DYSPNEA, UNSPECIFIED (2) D-dimer, elevated Code(s): R79.89 - OTHER SPECIFIED ABNORMAL FINDINGS OF BLOOD CHEMISTRY (3) Elevated troponin Code(s): R74.8 - ABNORMAL LEVELS OF OTHER SERUM ENZYMES (4) Wound, open, toe Code(s): S91.109A - UNSP OPEN WOUND OF UNSP TOE(S) W/O DAMAGE TO NAIL, INIT (5) Acute kidney injury superimposed on chronic kidney disease Code(s): N17.9 - ACUTE KIDNEY FAILURE, UNSPECIFIED; N18.9 - CHRONIC KIDNEY DISEASE, UNSPECIFIED (6) CKD (chronic kidney disease) Code(s): N18.9 - CHRONIC KIDNEY DISEASE, UNSPECIFIED (7) HTN (hypertension) Code(s): I10 - ESSENTIAL (PRIMARY) HYPERTENSION Qualifiers: Hypertension type: essential hypertension Qualified Code(s): I10 - Essential (primary) hypertension (8) Hypercholesterolemia Code(s): E78.0 - PURE HYPERCHOLESTEROLEMIA * DO NOT USE * (9) Troponin I above reference range Code(s): R74.8 - ABNORMAL LEVELS OF OTHER SERUM ENZYMES (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
--- NOTE | 2018-06-21 12:08 | PN ---
Progress Note, Physician - Current Medication List Current Medications: Active Medications Acetaminophen (Tylenol -) 650 mg PO Q6H PRN PRN Reason: FEVER Last Admin: 06/20/18 21:48 Dose: 650 mg Albuterol/Ipratropium (Duoneb -) 1 amp NEB RQID [facility] Amlodipine Besylate (Norvasc -) 10 mg PO DAILY [facility] Last Admin: 06/21/18 10:35 Dose: 10 mg Aspirin (Ecotrin -) 81 mg PO DAILY [facility] Last Admin: 06/21/18 10:34 Dose: 81 mg Atorvastatin Calcium (Lipitor -) 20 mg PO HS [facility] Last Admin: 06/20/18 21:49 Dose: 20 mg Collagenase (Santyl -) 1 applic TP DAILY [facility]; Protocol Last Admin: 06/21/18 10:35 Dose: 1 applic Cyanocobalamin (Vitamin B12 -) 1,000 mcg PO DAILY [facility] Last Admin: 06/21/18 10:36 Dose: 1,000 mcg Furosemide (Lasix -) 40 mg PO DAILY [facility] Last Admin: 06/21/18 10:35 Dose: 40 mg Guaifenesin (Robitussin -) 10 ml PO Q8H PRN PRN Reason: COUGH Hydralazine HCl (Apresoline -) 25 mg PO TID [facility] Last Admin: 06/21/18 06:12 Dose: 25 mg Piperacillin Sod/Tazobactam (Sod 2.25 gm/ Dextrose) 50 mls @ 100 mls/hr IVPB Q8H-IV [facility]; Protocol Last Admin: 06/21/18 10:36 Dose: 100 mls/hr Insulin Aspart (Novolog Vial Sliding Scale -) 1 vial SQ ACHS [facility]; Protocol Last Admin: 06/21/18 06:10 Dose: Not Given Insulin Detemir (Levemir Vial) 20 units SQ BID@0700,2200 [facility] Last Admin: 06/21/18 08:03 Dose: 20 units Isosorbide Dinitrate (Isordil -) 5 mg PO BIDISORDIL [facility] Last Admin: 06/21/18 10:34 Dose: 5 mg Sodium Bicarbonate (Sodium Bicarbonate -) 325 mg PO BID [facility] Last Admin: 06/21/18 10:35 Dose: 325 mg - Objective Vital Signs: Vital Signs Temperature 99.4 F 06/21/18 08:30 Pulse Rate 112 H 06/21/18 08:30 Respiratory Rate 20 06/21/18 08:30 Blood Pressure 150/75 06/21/18 08:30 O2 Sat by Pulse Oximetry (%) 96 06/21/18 09:00 Labs: CBC, BMP 06/20/18 05:30 06/20/18 05:30 INR, PTT INR 1.14 (0.83-1.09) H 06/12/18 23:30 Assessment/Plan - Problems (1) Fever Assessment/Plan: blood cultures ID follow up iv abx- zosyn for PNA Microbiology 06/19/18 21:45 Urine For Antigen Detection Legionella Antigen - Final 06/19/18 21:45 Urine For Antigen Detection Streptococcus pneumoniae Antigen (M - Final 06/13/18 19:30 Blood - Peripheral Venous Blood Culture - Final NO GROWTH AFTER 5 DAYS INCUBATION 06/13/18 19:00 Blood - Peripheral Venous Blood Culture - Final NO GROWTH AFTER 5 DAYS INCUBATION 06/12/18 21:00 Blood - Peripheral Venous Blood Culture - Final NO GROWTH AFTER 5 DAYS INCUBATION Code(s): R50.9 - FEVER, UNSPECIFIED (2) Wound, open, toe Assessment/Plan: podiatry on board MRI - no evidence of osteomyltis santly to the wound Code(s): S91.109A - UNSP OPEN WOUND OF UNSP TOE(S) W/O DAMAGE TO NAIL, INIT (3) Elevated troponin Assessment/Plan: trend troponin- down wards cardiology on board to review stress test Ejection Fraction 30% and small areas of ischemia echo at least mildly reduced LV fx iv heparin stop Code(s): R74.8 - ABNORMAL LEVELS OF OTHER SERUM ENZYMES (4) Chronic renal disease Assessment/Plan: iv lasix for leg edema will stop lasix given in crease in creatinine no dvt po bicarbonate Code(s): N18.9 - CHRONIC KIDNEY DISEASE, UNSPECIFIED (5) Diabetes Assessment/Plan: insulin bid Code(s): E11.9 - TYPE 2 DIABETES MELLITUS WITHOUT COMPLICATIONS Qualifiers: Diabetes mellitus type: type 1 Diabetes mellitus complication status: with skin complications Diabetes mellitus complication detail: with foot ulcer Qualified Code(s): E10.621 - Type 1 diabetes mellitus with foot ulcer (6) Pneumonia IV abx nebs pulm
[2018-06-21] MEDS: ALBUTEROL SO4 2.5/IPRATROPIUM 0.5 INH SOL 3 ML VIAL.NEB. NEB SCH ×3 (13:09→19:40)
--- NOTE | 2018-06-21 15:24 | PN ---
Progress Note, Physician History of Present Illness: Pt seen and examined at bedside. He is awake and alert. He complains of cough. - Current Medication List Current Medications: Active Medications Acetaminophen (Tylenol -) 650 mg PO Q6H PRN PRN Reason: FEVER Last Admin: 06/20/18 21:48 Dose: 650 mg Albuterol/Ipratropium (Duoneb -) 1 amp NEB RQID [facility] Last Admin: 06/21/18 13:09 Dose: 1 amp Amlodipine Besylate (Norvasc -) 10 mg PO DAILY [facility] Last Admin: 06/21/18 10:35 Dose: 10 mg Aspirin (Ecotrin -) 81 mg PO DAILY [facility] Last Admin: 06/21/18 10:34 Dose: 81 mg Atorvastatin Calcium (Lipitor -) 20 mg PO HS [facility] Last Admin: 06/20/18 21:49 Dose: 20 mg Collagenase (Santyl -) 1 applic TP DAILY [facility]; Protocol Last Admin: 06/21/18 10:35 Dose: 1 applic Cyanocobalamin (Vitamin B12 -) 1,000 mcg PO DAILY [facility] Last Admin: 06/21/18 10:36 Dose: 1,000 mcg Furosemide (Lasix -) 40 mg PO DAILY [facility] Last Admin: 06/21/18 10:35 Dose: 40 mg Guaifenesin (Robitussin -) 10 ml PO Q8H PRN PRN Reason: COUGH Hydralazine HCl (Apresoline -) 25 mg PO TID [facility] Last Admin: 06/21/18 13:34 Dose: 25 mg Piperacillin Sod/Tazobactam (Sod 2.25 gm/ Dextrose) 50 mls @ 100 mls/hr IVPB Q8H-IV [facility]; Protocol Last Admin: 06/21/18 10:36 Dose: 100 mls/hr Insulin Aspart (Novolog Vial Sliding Scale -) 1 vial SQ ACHS [facility]; Protocol Last Admin: 06/21/18 11:50 Dose: 4 units Insulin Detemir (Levemir Vial) 20 units SQ BID@0700,2200 [facility] Last Admin: 06/21/18 08:03 Dose: 20 units Isosorbide Dinitrate (Isordil -) 5 mg PO BIDISORDIL [facility] Last Admin: 06/21/18 10:34 Dose: 5 mg Sodium Bicarbonate (Sodium Bicarbonate -) 325 mg PO BID [facility] Last Admin: 06/21/18 10:35 Dose: 325 mg - Objective Vital Signs: Vital Signs Temperature 99.5 F 06/21/18 14:00 Pulse Rate 109 H 06/21/18 14:00 Respiratory Rate 20 06/21/18 14:00 Blood Pressure 135/73 06/21/18 14:00 O2 Sat by Pulse Oximetry (%) 96 06/21/18 09:00 Constitutional: Yes: Calm Eyes: Yes: Conjunctiva Clear HENT: Yes: Atraumatic Cardiovascular: Yes: S1, S2 Respiratory: Yes: On Nasal O2, Rhonchi Gastrointestinal: Yes: Soft Genitourinary: Yes: WNL Edema: No Wound/Incision: Yes: Dressing Dry and Intact Neurological: Yes: Oriented Psychiatric: Yes: Oriented Labs: CBC, BMP 06/20/18 05:30 06/20/18 05:30 INR, PTT INR 1.14 (0.83-1.09) H 06/12/18 23:30 Problem List - Problems (1) Cellulitis Code(s): L03.90 - CELLULITIS, UNSPECIFIED (2) CKD (chronic kidney disease) Code(s): N18.9 - CHRONIC KIDNEY DISEASE, UNSPECIFIED Assessment/Plan Current Medications Generic Name Dose Route Start Last Admin Trade Name Freq PRN Reason Stop Dose Admin Acetaminophen 650 mg 06/19/18 20:47 06/20/18 21:48 Tylenol - PO 650 mg Q6H PRN Administration FEVER Albuterol/Ipratropium 1 amp 06/21/18 12:00 06/21/18 13:09 Duoneb - NEB 1 amp RQID [facility] Administration Amlodipine Besylate 10 mg 06/13/18 10:00 06/21/18 10:35 Norvasc - PO 10 mg DAILY [facility] Administration Aspirin 81 mg 06/13/18 10:00 06/21/18 10:34 Ecotrin - PO 81 mg DAILY [facility] Administration Atorvastatin Calcium 20 mg 06/13/18 22:00 06/20/18 21:49 Lipitor - PO 20 mg HS [facility] Administration Collagenase 1 applic 06/13/18 11:30 06/21/18 10:35 Santyl - TP 1 applic DAILY [facility] Administration Protocol Cyanocobalamin 1,000 mcg 06/13/18 10:00 06/21/18 10:36 Vitamin B12 - PO 1,000 mcg DAILY [facility] Administration Furosemide 40 mg 06/21/18 10:00 06/21/18 10:35 Lasix - PO 40 mg DAILY [facility] Administration Guaifenesin 10 ml 06/20/18 18:11 Robitussin - PO Q8H PRN COUGH Hydralazine HCl 25 mg 06/13/18 22:00 06/21/18 13:34 Apresoline - PO 25 mg TID [facility] Administration Piperacillin Sod/Tazobactam 50 mls @ 100 mls/hr 06/19/18 18:00 06/21/18 10:36 Sod 2.25 gm/ Dextrose IVPB 100 mls/hr Q8H-IV [facility] Administration Protocol Insulin Aspart 1 vial 06/13/18 07:00 06/21/18 11:50 Novolog Vial Sliding Scale - SQ 4 units ACHS [facility] Administration Protocol Insulin Detemir 20 units 06/12/18 22:00 06/21/18 08:03 Levemir Vial SQ 20 units BID@0700,2200 [facility] Administration Isosorbide Dinitrate 5 mg 06/15/18 11:00 06/21/18 10:34 Isordil - PO 5 mg BIDISORDIL [facility] Administration Sodium Bicarbonate 325 mg 06/17/18 16:00 06/21/18 10:35 Sodium Bicarbonate - PO 325 mg BID [facility] Administration Impression 1. CKD 2. elevated cardiac enzymes 3. DM 4. chest pain 5. hyperlipidemia 6. HTN 7. hx of Wilms tumor, s/p left nephrectomy 8. 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
[2018-06-21] MEDS: ACETAMINOPHEN 325 MG TABLET (FP) PO PRN (18:19)
[2018-06-21] MEDS: ATORVASTATIN CA 20 MG TABLET (FP) PO SCH (21:27)
[2018-06-22] MEDS ORDERED: PIPERACILLIN/TAZOBACTAM 2.25 GM VIAL IVPB ONE ×3 (00:55→16:37)
[2018-06-22] MEDS ORDERED: DEXTROSE 5%-WATER - 50 ML IVPB ONE ×3 (00:56→16:37)
[2018-06-22] MEDS: PIPERACILLIN/TAZOB 2.25 GM 2.25 GM in DEXTROSE 5%-WATER - 50 ML IVPB SCH ×3 (01:06→17:04)
[2018-06-22] MEDS: ACETAMINOPHEN 325 MG TABLET (FP) PO PRN ×2 (03:35→14:11)
[2018-06-22] MEDS: ALBUTEROL SO4 2.5/IPRATROPIUM 0.5 INH SOL 3 ML VIAL.NEB. NEB PRN (03:56)
[2018-06-22] MEDS: INSULIN (LEVEMIR) 100 UNITS/ML UNITS SQ SCH ×2 (07:07→21:06)
[2018-06-22] MEDS: INSULIN SLIDING SCALE (NOVOLOG) 1 VIAL SQ SCH ×4 (07:07→21:08)
[2018-06-22] MEDS: hydrALAZINE HCL 25 MG TABLET (FP) PO SCH ×3 (07:07→21:05)
[2018-06-22] MEDS: ALBUTEROL SO4 2.5/IPRATROPIUM 0.5 INH SOL 3 ML VIAL.NEB. NEB SCH ×4 (07:19→20:50)
[2018-06-22] MEDS: COLLAGENASE CLOSTRIDIUM HIST. 30 GRAMS TUBE TP SCH (09:06)
[2018-06-22] MEDS: ISOSORBIDE DINITRATE 5 MG TABLET PO SCH ×2 (09:50→17:05)
[2018-06-22] MEDS: amLODIPine BESYLATE 10 MG TABLET (FP) PO SCH (09:50)
[2018-06-22] MEDS: ASPIRIN COATED 81 MG TABLET.EC PO SCH (09:50)
[2018-06-22] MEDS: CYANOCOBALAMIN 1,000 MCG TABLET (FP) PO SCH (09:50)
[2018-06-22] MEDS: SODIUM BICARBONATE 325 MG TABLET PO SCH (09:50)
[2018-06-22] MEDS: FUROSEMIDE 40 MG TABLET (FP) PO SCH (09:50)
--- NOTE | 2018-06-22 10:49 | PN ---
Progress Note, Physician History of Present Illness: Difficulty breathing this AM with wheezing in bathroom No chest pains Tele: ST 120/min - Current Medication List Current Medications: Active Medications Acetaminophen (Tylenol -) 650 mg PO Q6H PRN PRN Reason: FEVER Last Admin: 06/22/18 03:35 Dose: 650 mg Albuterol/Ipratropium (Duoneb -) 1 amp NEB RQID [facility] Last Admin: 06/22/18 07:19 Dose: 1 amp Albuterol/Ipratropium (Duoneb -) 1 amp NEB Q4H PRN PRN Reason: SHORTNESS OF BREATH Last Admin: 06/22/18 03:56 Dose: 1 amp Amlodipine Besylate (Norvasc -) 10 mg PO DAILY [facility] Last Admin: 06/22/18 09:50 Dose: 10 mg Aspirin (Ecotrin -) 81 mg PO DAILY [facility] Last Admin: 06/22/18 09:50 Dose: 81 mg Atorvastatin Calcium (Lipitor -) 20 mg PO HS [facility] Last Admin: 06/21/18 21:27 Dose: 20 mg Collagenase (Santyl -) 1 applic TP DAILY [facility]; Protocol Last Admin: 06/21/18 10:35 Dose: 1 applic Cyanocobalamin (Vitamin B12 -) 1,000 mcg PO DAILY [facility] Last Admin: 06/22/18 09:50 Dose: 1,000 mcg Furosemide (Lasix -) 40 mg PO DAILY [facility] Last Admin: 06/22/18 09:50 Dose: 40 mg Guaifenesin (Robitussin -) 10 ml PO Q8H PRN PRN Reason: COUGH Hydralazine HCl (Apresoline -) 25 mg PO TID [facility] Last Admin: 06/22/18 07:07 Dose: 25 mg Piperacillin Sod/Tazobactam (Sod 2.25 gm/ Dextrose) 50 mls @ 100 mls/hr IVPB Q8H-IV [facility]; Protocol Last Admin: 06/22/18 09:50 Dose: 100 mls/hr Insulin Aspart (Novolog Vial Sliding Scale -) 1 vial SQ ACHS [facility]; Protocol Last Admin: 06/22/18 07:07 Dose: 2 units Insulin Detemir (Levemir Vial) 20 units SQ BID@0700,2200 [facility] Last Admin: 06/22/18 07:07 Dose: 20 units Isosorbide Dinitrate (Isordil -) 5 mg PO BIDISORDIL [facility] Last Admin: 06/22/18 09:50 Dose: 5 mg Sodium Bicarbonate (Sodium Bicarbonate -) 325 mg PO BID [facility] Last Admin: 06/22/18 09:50 Dose: 325 mg - Objective Vital Signs: Vital Signs Temperature 99.8 F H 06/22/18 06:00 Pulse Rate 105 H 06/22/18 06:00 Respiratory Rate 20 06/22/18 06:00 Blood Pressure 156/76 06/22/18 06:00 O2 Sat by Pulse Oximetry (%) 94 L 06/21/18 20:00 Constitutional: Yes: Calm Cardiovascular: Yes: Regular Rate and Rhythm, Tachycardia Respiratory: Yes: Poor Air Entry, Wheezes Edema: No Labs: CBC, BMP 06/20/18 05:30 06/20/18 05:30 INR, PTT INR 1.14 (0.83-1.09) H 06/12/18 23:30 Assessment/Plan 1. Elevated troponin, abnormal stress test/Dyspnea: - trop 0.47, EKG no ischemic changes, history less consistent with ACS - recent mibi 04/2018 showed EF 30% and small area of mild ischemia. Images reviewed , mild apical ischemia with EF 30% range. - asymptomatic currently, however with elevated trop as above. Angiogram deferred given ESRD not yet on HD and contrast allergy - continue aspirin, statin - echo technically difficult, overall at least mildly reduced LV fx - concern for foot infection - may be 2/2 demand ischemia - V/Q scan negative for PE, heparin dc'ed -06/21: Stable. continue Asa and statin as outlined above. -06/22: Stable from CV perspective. This AM symptoms seem more pulmonary rather then CHF. Will continue lasix 40gm PO BID 2. Cardiomyopathy: - EF 30% on mibi - echo confrims at least mild LV dysfx - no bb given history of worsening dyspnea and wheezing with metoprolol, no MERRILL/ ARB given CKD -Medical management of underlying possible CAD as above -continue hydralazine, imdur
--- NOTE | 2018-06-22 10:55 | PN ---
Progress Note, Physician History of Present Illness: pulmonary alert,c/o sob,congestion. t 99.8 - Current Medication List Current Medications: Active Medications Acetaminophen (Tylenol -) 650 mg PO Q6H PRN PRN Reason: FEVER Last Admin: 06/22/18 03:35 Dose: 650 mg Albuterol/Ipratropium (Duoneb -) 1 amp NEB RQID [facility] Last Admin: 06/22/18 07:19 Dose: 1 amp Albuterol/Ipratropium (Duoneb -) 1 amp NEB Q4H PRN PRN Reason: SHORTNESS OF BREATH Last Admin: 06/22/18 03:56 Dose: 1 amp Amlodipine Besylate (Norvasc -) 10 mg PO DAILY [facility] Last Admin: 06/22/18 09:50 Dose: 10 mg Aspirin (Ecotrin -) 81 mg PO DAILY [facility] Last Admin: 06/22/18 09:50 Dose: 81 mg Atorvastatin Calcium (Lipitor -) 20 mg PO HS [facility] Last Admin: 06/21/18 21:27 Dose: 20 mg Collagenase (Santyl -) 1 applic TP DAILY [facility]; Protocol Last Admin: 06/21/18 10:35 Dose: 1 applic Cyanocobalamin (Vitamin B12 -) 1,000 mcg PO DAILY [facility] Last Admin: 06/22/18 09:50 Dose: 1,000 mcg Furosemide (Lasix -) 40 mg PO DAILY [facility] Last Admin: 06/22/18 09:50 Dose: 40 mg Guaifenesin (Robitussin -) 10 ml PO Q8H PRN PRN Reason: COUGH Hydralazine HCl (Apresoline -) 25 mg PO TID [facility] Last Admin: 06/22/18 07:07 Dose: 25 mg Piperacillin Sod/Tazobactam (Sod 2.25 gm/ Dextrose) 50 mls @ 100 mls/hr IVPB Q8H-IV [facility]; Protocol Last Admin: 06/22/18 09:50 Dose: 100 mls/hr Insulin Aspart (Novolog Vial Sliding Scale -) 1 vial SQ ACHS [facility]; Protocol Last Admin: 06/22/18 07:07 Dose: 2 units Insulin Detemir (Levemir Vial) 20 units SQ BID@0700,2200 [facility] Last Admin: 06/22/18 07:07 Dose: 20 units Isosorbide Dinitrate (Isordil -) 5 mg PO BIDISORDIL [facility] Last Admin: 06/22/18 09:50 Dose: 5 mg Sodium Bicarbonate (Sodium Bicarbonate -) 325 mg PO BID [facility] Last Admin: 06/22/18 09:50 Dose: 325 mg - Objective Vital Signs: Vital Signs Temperature 99.8 F H 06/22/18 06:00 Pulse Rate 105 H 06/22/18 06:00 Respiratory Rate 20 06/22/18 06:00 Blood Pressure 156/76 06/22/18 06:00 O2 Sat by Pulse Oximetry (%) 94 L 06/21/18 20:00 Constitutional: Yes: Well Nourished, Calm Eyes: Yes: WNL HENT: Yes: WNL Neck: Yes: WNL Cardiovascular: Yes: Regular Rate and Rhythm, S1, S2 Respiratory: Yes: Rhonchi (scattered rhonchi) Gastrointestinal: Yes: Normal Bowel Sounds, Soft Extremities: Yes: WNL Edema: No Labs: Problem List - Problems (1) Dyspnea Code(s): R06.00 - DYSPNEA, UNSPECIFIED (2) D-dimer, elevated Code(s): R79.89 - OTHER SPECIFIED ABNORMAL FINDINGS OF BLOOD CHEMISTRY (3) Elevated troponin Code(s): R74.8 - ABNORMAL LEVELS OF OTHER SERUM ENZYMES (4) Wound, open, toe Code(s): S91.109A - UNSP OPEN WOUND OF UNSP TOE(S) W/O DAMAGE TO NAIL, INIT (5) Acute kidney injury superimposed on chronic kidney disease Code(s): N17.9 - ACUTE KIDNEY FAILURE, UNSPECIFIED; N18.9 - CHRONIC KIDNEY DISEASE, UNSPECIFIED (6) CKD (chronic kidney disease) Code(s): N18.9 - CHRONIC KIDNEY DISEASE, UNSPECIFIED (7) HTN (hypertension) Code(s): I10 - ESSENTIAL (PRIMARY) HYPERTENSION Qualifiers: Hypertension type: essential hypertension Qualified Code(s): I10 - Essential (primary) hypertension (8) Hypercholesterolemia Code(s): E78.0 - PURE HYPERCHOLESTEROLEMIA * DO NOT USE * (9) Troponin I above reference range Code(s): R74.8 - ABNORMAL LEVELS OF OTHER SERUM ENZYMES (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 Assessment/Plan IMP DYSPNEA CARDIOMYOPATHY CKD + TROPONIN HTN DM H/O WILMS TUMOR S/P L NEPHRECTOMY PULMONARY HTN REBECCA AHI 26.5 ON SLEEP SCREEN LEFT FOOT ULCER PNEUMONIA PLAN PFTS OUTPATIENT FORMAL SLEEP STUDIES OUTPATIENT DAILY WT DVT PROPHYLAXIS ABX PER ID INHALED BRONCHODILATORS CHEST X-RAY DR MCDANIEL Problem List - Problems (1) Dyspnea Code(s): R06.00 - DYSPNEA, UNSPECIFIED (2) D-dimer, elevated Code(s): R79.89 - OTHER SPECIFIED ABNORMAL FINDINGS OF BLOOD CHEMISTRY (3) Elevated troponin Code(s): R74.8 - ABNORMAL LEVELS OF OTHER SERUM ENZYMES (4) Wound, open, toe Code(s): S91.109A - UNSP OPEN WOUND OF UNSP TOE(S) W/O DAMAGE TO NAIL, INIT (5) Acute kidney injury superimposed on chronic kidney disease Code(s): N17.9 - ACUTE KIDNEY FAILURE, UNSPECIFIED; N18.9 - CHRONIC KIDNEY DISEASE, UNSPECIFIED (6) CKD (chronic kidney disease) Code(s): N18.9 - CHRONIC KIDNEY DISEASE, UNSPECIFIED (7) HTN (hypertension) Code(s): I10 - ESSENTIAL (PRIMARY) HYPERTENSION Qualifiers: Hypertension type: essential hypertension Qualified Code(s): I10 - Essential (primary) hypertension (8) Hypercholesterolemia Code(s): E78.0 - PURE HYPERCHOLESTEROLEMIA * DO NOT USE * (9) Troponin I above reference range Code(s): R74.8 - ABNORMAL LEVELS OF OTHER SERUM ENZYMES (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
--- NOTE | 2018-06-22 10:56 | PN ---
Progress Note, Physician - Current Medication List Current Medications: Active Medications Acetaminophen (Tylenol -) 650 mg PO Q6H PRN PRN Reason: FEVER Last Admin: 06/22/18 03:35 Dose: 650 mg Albuterol/Ipratropium (Duoneb -) 1 amp NEB RQID [facility] Last Admin: 06/22/18 07:19 Dose: 1 amp Albuterol/Ipratropium (Duoneb -) 1 amp NEB Q4H PRN PRN Reason: SHORTNESS OF BREATH Last Admin: 06/22/18 03:56 Dose: 1 amp Amlodipine Besylate (Norvasc -) 10 mg PO DAILY [facility] Last Admin: 06/22/18 09:50 Dose: 10 mg Aspirin (Ecotrin -) 81 mg PO DAILY [facility] Last Admin: 06/22/18 09:50 Dose: 81 mg Atorvastatin Calcium (Lipitor -) 20 mg PO HS [facility] Last Admin: 06/21/18 21:27 Dose: 20 mg Collagenase (Santyl -) 1 applic TP DAILY [facility]; Protocol Last Admin: 06/21/18 10:35 Dose: 1 applic Cyanocobalamin (Vitamin B12 -) 1,000 mcg PO DAILY [facility] Last Admin: 06/22/18 09:50 Dose: 1,000 mcg Furosemide (Lasix -) 40 mg PO DAILY [facility] Last Admin: 06/22/18 09:50 Dose: 40 mg Guaifenesin (Robitussin -) 10 ml PO Q8H PRN PRN Reason: COUGH Hydralazine HCl (Apresoline -) 25 mg PO TID [facility] Last Admin: 06/22/18 07:07 Dose: 25 mg Piperacillin Sod/Tazobactam (Sod 2.25 gm/ Dextrose) 50 mls @ 100 mls/hr IVPB Q8H-IV [facility]; Protocol Last Admin: 06/22/18 09:50 Dose: 100 mls/hr Insulin Aspart (Novolog Vial Sliding Scale -) 1 vial SQ ACHS [facility]; Protocol Last Admin: 06/22/18 07:07 Dose: 2 units Insulin Detemir (Levemir Vial) 20 units SQ BID@0700,2200 [facility] Last Admin: 06/22/18 07:07 Dose: 20 units Isosorbide Dinitrate (Isordil -) 5 mg PO BIDISORDIL [facility] Last Admin: 06/22/18 09:50 Dose: 5 mg Sodium Bicarbonate (Sodium Bicarbonate -) 325 mg PO BID [facility] Last Admin: 06/22/18 09:50 Dose: 325 mg - Objective Vital Signs: Vital Signs Temperature 99.8 F H 06/22/18 06:00 Pulse Rate 105 H 06/22/18 06:00 Respiratory Rate 20 06/22/18 06:00 Blood Pressure 156/76 06/22/18 06:00 O2 Sat by Pulse Oximetry (%) 94 L 06/21/18 20:00 Cardiovascular: Yes: S1, S2 Respiratory: Yes: On Nasal O2, Rhonchi Gastrointestinal: Yes: Normal Bowel Sounds, Soft Labs: CBC, BMP 06/20/18 05:30 06/20/18 05:30 INR, PTT INR 1.14 (0.83-1.09) H 06/12/18 23:30 Assessment/Plan - Problems (1) Fever Assessment/Plan: blood cultures ID follow up iv abx- zosyn for PNA cxr Microbiology 06/19/18 21:45 Urine For Antigen Detection Legionella Antigen - Final 06/19/18 21:45 Urine For Antigen Detection Streptococcus pneumoniae Antigen (M - Final 06/13/18 19:30 Blood - Peripheral Venous Blood Culture - Final NO GROWTH AFTER 5 DAYS INCUBATION 06/13/18 19:00 Blood - Peripheral Venous Blood Culture - Final NO GROWTH AFTER 5 DAYS INCUBATION 06/12/18 21:00 Blood - Peripheral Venous Blood Culture - Final NO GROWTH AFTER 5 DAYS INCUBATION Code(s): R50.9 - FEVER, UNSPECIFIED (2) Wound, open, toe Assessment/Plan: podiatry on board MRI - no evidence of osteomyltis santly to the wound Code(s): S91.109A - UNSP OPEN WOUND OF UNSP TOE(S) W/O DAMAGE TO NAIL, INIT (3) Elevated troponin Assessment/Plan: trend troponin- down wards cardiology on board to review stress test Ejection Fraction 30% and small areas of ischemia echo at least mildly reduced LV fx iv heparin stop Code(s): R74.8 - ABNORMAL LEVELS OF OTHER SERUM ENZYMES (4) Chronic renal disease Assessment/Plan: iv lasix for leg edema stop Lasix given increase in creatinine no dvt po bicarbonate Code(s): N18.9 - CHRONIC KIDNEY DISEASE, UNSPECIFIED (5) Diabetes Assessment/Plan: insulin bid Code(s): E11.9 - TYPE 2 DIABETES MELLITUS WITHOUT COMPLICATIONS Qualifiers: Diabetes mellitus type: type 1 Diabetes mellitus complication status: with skin complications Diabetes mellitus complication detail: with foot ulcer Qualified Code(s): E10.621 - Type 1 diabetes mellitus with foot ulcer (6) Pneumonia IV abx nebs pulm (7) Dspnea as aboce [id number]
[2018-06-22 12:20] LABS: BASO % 1.2 % (0-2.0); EOS % 1.4 % (0-4.5); HEMATOCRIT 29.9 % (35.4-49); HEMOGLOBIN 9.7 GM/dL (11.7-16.9); LYMPH % 8.6 % (8-40); MCH 27.2 pg (25.7-33.7); MCHC 32.6 g/dl (32.0-35.9); MEAN CELL VOLUME 83.6 fl (80-96); MEAN PLT VOLUME 7.3 fl (7.5-11.1); MONO % 11.6 % (3.8-10.2); NEUT % 77.2 % (42.8-82.8); PLATELET COUNT 217 K/MM3 (134-434); RBC 3.57 M/mm3 (4.00-5.60); RDW 14.5 % (11.9-15.9); WHITE BLOOD COUNT 4.5 K/mm3 (4.0-10.0)
--- NOTE | 2018-06-22 12:43 | PN ---
Progress Note (short form) - Note Progress Note: follow up left big toe. Patient feeling better. vss, +improved cellulitis, +granulation, -drainage, chronic wound left big toe continue santyl left big toe. will follow till dc.
[2018-06-22 12:54] LABS: ALBUMIN 2.6 g/dl (3.4-5.0); ANION GAP 9 MMOL/L (8-16); BILIRUBIN,TOTAL 0.3 mg/dL (0.2-1); BLOOD UREA NITROGEN 65 mg/dL (7-18); CALCIUM 8.2 mg/dL (8.5-10.1); CHLORIDE 102 mmol/L (98-107); CO2 23 mmol/L (21-32); CREATININE 5.6 mg/dL (0.55-1.3); GLUCOSE,RANDOM 281 mg/dL (74-106); POTASSIUM 4.6 mmol/L (3.5-5.1); SGOT/AST 30 U/L (15-37); SGPT/ALT 9 U/L (13-61); SODIUM 134 mmol/L (136-145); TOT PROT 6.4 g/dl (6.4-8.2)
[2018-06-22 13:07] LABS: ALK PHOS 108 U/L (45-117)
--- NOTE | 2018-06-22 14:45 | PN ---
Progress Note (short form) - Note Progress Note: alert c/o cough and chest congestion oob in chair feels about the same Vital Signs Period Temp Pulse Resp BP Sys/Barrera Pulse Ox Last 24 Hr 99.6 F-100.6 F 105-118 20-20 136-163/67-89 94-94 cor-rrr lungs clear abd soft,nt ext +edema unchanged CBC, BMP 06/22/18 11:40 06/22/18 11:40 Microbiology 06/20/18 11:30 Sputum - Expectorated Gram Stain - Final 06/20/18 11:30 Sputum - Expectorated Sputum Culture - Final NORMAL RESPIRATORY YANI 06/19/18 17:05 Blood - Peripheral Venous Blood Culture - Preliminary NO GROWTH OBTAINED AFTER 48 HOURS, INCUBATION TO CONTINUE FOR 3 DAYS. 06/19/18 16:45 Blood - Peripheral Venous Blood Culture - Preliminary NO GROWTH OBTAINED AFTER 48 HOURS, INCUBATION TO CONTINUE FOR 3 DAYS. 06/19/18 21:45 Urine For Antigen Detection Legionella Antigen - Final 06/19/18 21:45 Urine For Antigen Detection Streptococcus pneumoniae Antigen (M - Final 06/13/18 19:00 Blood - Peripheral Venous Blood Culture - Final NO GROWTH AFTER 5 DAYS INCUBATION 06/13/18 19:30 Blood - Peripheral Venous Blood Culture - Final NO GROWTH AFTER 5 DAYS INCUBATION 06/12/18 21:00 Blood - Peripheral Venous Blood Culture - Final NO GROWTH AFTER 5 DAYS INCUBATION MRI of toe no osteomyelitis a/p fevers -lowgrade and persistent with normal WBC-esr/crp, anca viral resp panel RUL pneumonia cellulitis has resolved urinary antigens negative continue zosyn adjusted for CKD history of DM/CKD d/w hospitalist Problem List - Problems (1) Chills (without fever) Code(s): R68.83 - CHILLS (WITHOUT FEVER) (2) Cellulitis Code(s): L03.90 - CELLULITIS, UNSPECIFIED (3) Wound, open, toe Code(s): S91.109A - UNSP OPEN WOUND OF UNSP TOE(S) W/O DAMAGE TO NAIL, INIT (4) CKD (chronic kidney disease) Code(s): N18.9 - CHRONIC KIDNEY DISEASE, UNSPECIFIED (5) Diabetes Code(s): E11.9 - TYPE 2 DIABETES MELLITUS WITHOUT COMPLICATIONS Qualifiers: Diabetes mellitus type: type 1 Diabetes mellitus complication status: with skin complications Diabetes mellitus complication detail: with foot ulcer Qualified Code(s): E10.621 - Type 1 diabetes mellitus with foot ulcer
[2018-06-22] MEDS ORDERED: methylPREDNISolone NA SUCC 40 MG/1 ML VIAL IVPUSH SCH (15:00)
--- NOTE | 2018-06-22 15:03 | EKG ---
Test Reason : Blood Pressure : / mmHG Vent. Rate : 113 BPM Atrial Rate : 113 BPM P-R Int : 170 ms QRS Dur : 088 ms QT Int : 312 ms P-R-T Axes : 064 022 056 degrees QTc Int : 427 ms SINUS TACHYCARDIA POSSIBLE LEFT ATRIAL ENLARGEMENT BORDERLINE ECG WHEN COMPARED WITH ECG OF 12-JUN-2018 11:46, NO SIGNIFICANT CHANGE WAS FOUND Confirmed by YANCI SIDDIQUI MD ([id number]) on 06/22/2018 3:03:18 PM Referred By: Karina BECERRIL Confirmed By:YANCI SIDDIQUI MD
[2018-06-22] MEDS: methylPREDNISolone NA SUCC 40 MG/1 ML VIAL IVPUSH SCH ×2 (15:40→21:06)
--- NOTE | 2018-06-22 18:05 | PN ---
Progress Note, Physician History of Present Illness: Pt seen and examined at bedside. He is awake and alert. He is out of bed to chair today. - Current Medication List Current Medications: Active Medications Acetaminophen (Tylenol -) 650 mg PO Q6H PRN PRN Reason: FEVER Last Admin: 06/22/18 14:11 Dose: 650 mg Albuterol/Ipratropium (Duoneb -) 1 amp NEB RQID [facility] Last Admin: 06/22/18 17:18 Dose: 1 amp Albuterol/Ipratropium (Duoneb -) 1 amp NEB Q4H PRN PRN Reason: SHORTNESS OF BREATH Last Admin: 06/22/18 03:56 Dose: 1 amp Amlodipine Besylate (Norvasc -) 10 mg PO DAILY [facility] Last Admin: 06/22/18 09:50 Dose: 10 mg Aspirin (Ecotrin -) 81 mg PO DAILY [facility] Last Admin: 06/22/18 09:50 Dose: 81 mg Atorvastatin Calcium (Lipitor -) 20 mg PO HS [facility] Last Admin: 06/21/18 21:27 Dose: 20 mg Collagenase (Santyl -) 1 applic TP DAILY [facility]; Protocol Last Admin: 06/22/18 09:06 Dose: 1 applic Cyanocobalamin (Vitamin B12 -) 1,000 mcg PO DAILY [facility] Last Admin: 06/22/18 09:50 Dose: 1,000 mcg Furosemide (Lasix -) 40 mg PO DAILY [facility] Last Admin: 06/22/18 09:50 Dose: 40 mg Guaifenesin (Robitussin -) 10 ml PO Q8H PRN PRN Reason: COUGH Hydralazine HCl (Apresoline -) 25 mg PO TID [facility] Last Admin: 06/22/18 14:11 Dose: 25 mg Piperacillin Sod/Tazobactam (Sod 2.25 gm/ Dextrose) 50 mls @ 100 mls/hr IVPB Q8H-IV [facility]; Protocol Last Admin: 06/22/18 17:04 Dose: 100 mls/hr Insulin Aspart (Novolog Vial Sliding Scale -) 1 vial SQ ACHS [facility]; Protocol Last Admin: 06/22/18 17:05 Dose: 2 units Insulin Detemir (Levemir Vial) 20 units SQ BID@0700,2200 [facility] Last Admin: 06/22/18 07:07 Dose: 20 units Isosorbide Dinitrate (Isordil -) 5 mg PO BIDISORDIL [facility] Last Admin: 06/22/18 17:05 Dose: 5 mg Methylprednisolone Sodium Succinate (Solu-Medrol -) 60 mg IVPUSH Q6H-IV [facility] Last Admin: 06/22/18 15:40 Dose: 60 mg Sodium Bicarbonate (Sodium Bicarbonate -) 325 mg PO BID [facility] Last Admin: 06/22/18 09:50 Dose: 325 mg - Objective Vital Signs: Vital Signs Temperature 101.2 F H 06/22/18 14:00 Pulse Rate 75 06/22/18 14:00 Respiratory Rate 20 06/22/18 14:00 Blood Pressure 162/73 06/22/18 14:00 O2 Sat by Pulse Oximetry (%) 94 L 06/22/18 09:00 Constitutional: Yes: Calm Eyes: Yes: Conjunctiva Clear HENT: Yes: Atraumatic Cardiovascular: Yes: S1, S2 Respiratory: Yes: On Nasal O2 Gastrointestinal: Yes: Soft Genitourinary: Yes: WNL Musculoskeletal: Yes: WNL Edema: Yes Edema: LLE: 1+, RLE: 1+ Neurological: Yes: Oriented Psychiatric: Yes: Oriented Labs: CBC, BMP 06/22/18 11:40 06/22/18 11:40 INR, PTT INR 1.14 (0.83-1.09) H 06/12/18 23:30 Problem List - Problems (1) Cellulitis Code(s): L03.90 - CELLULITIS, UNSPECIFIED (2) CKD (chronic kidney disease) Code(s): N18.9 - CHRONIC KIDNEY DISEASE, UNSPECIFIED Assessment/Plan Current Medications Generic Name Dose Route Start Last Admin Trade Name Freq PRN Reason Stop Dose Admin Acetaminophen 650 mg 06/19/18 20:47 06/22/18 14:11 Tylenol - PO 650 mg Q6H PRN Administration FEVER Albuterol/Ipratropium 1 amp 06/21/18 12:00 06/22/18 17:18 Duoneb - NEB 1 amp RQID [facility] Administration Albuterol/Ipratropium 1 amp 06/22/18 03:45 06/22/18 03:56 Duoneb - NEB 1 amp Q4H PRN Administration SHORTNESS OF BREATH Amlodipine Besylate 10 mg 06/13/18 10:00 06/22/18 09:50 Norvasc - PO 10 mg DAILY [facility] Administration Aspirin 81 mg 06/13/18 10:00 06/22/18 09:50 Ecotrin - PO 81 mg DAILY [facility] Administration Atorvastatin Calcium 20 mg 06/13/18 22:00 06/21/18 21:27 Lipitor - PO 20 mg HS [facility] Administration Collagenase 1 applic 06/13/18 11:30 06/22/18 09:06 Santyl - TP 1 applic DAILY [facility] Administration Protocol Cyanocobalamin 1,000 mcg 06/13/18 10:00 06/22/18 09:50 Vitamin B12 - PO 1,000 mcg DAILY [facility] Administration Furosemide 40 mg 06/21/18 10:00 06/22/18 09:50 Lasix - PO 40 mg DAILY [facility] Administration Guaifenesin 10 ml 06/20/18 18:11 Robitussin - PO Q8H PRN COUGH Hydralazine HCl 25 mg 06/13/18 22:00 06/22/18 14:11 Apresoline - PO 25 mg TID [facility] Administration Piperacillin Sod/Tazobactam 50 mls @ 100 mls/hr 06/19/18 18:00 06/22/18 17:04 Sod 2.25 gm/ Dextrose IVPB 100 mls/hr Q8H-IV [facility] Administration Protocol Insulin Aspart 1 vial 06/13/18 07:00 06/22/18 17:05 Novolog Vial Sliding Scale - SQ 2 units ACHS [facility] Administration Protocol Insulin Detemir 20 units 06/12/18 22:00 06/22/18 07:07 Levemir Vial SQ 20 units BID@0700,2200 [facility] Administration Isosorbide Dinitrate 5 mg 06/15/18 11:00 06/22/18 17:05 Isordil - PO 5 mg BIDISORDIL [facility] Administration Methylprednisolone Sodium Succinate 60 mg 06/22/18 15:00 06/22/18 15:40 Solu-Medrol - IVPUSH 60 mg Q6H-IV [facility] Administration Sodium Bicarbonate 325 mg 06/17/18 16:00 06/22/18 09:50 Sodium Bicarbonate - PO 325 mg BID [facility] Administration Impression 1. CKD 2. elevated cardiac enzymes 3. DM 4. chest pain 5. hyperlipidemia 6. HTN 7. hx of Wilms tumor, s/p left nephrectomy 8. hyperkalemia Plan - will hold am lasix until labs reviewed - renal function is worsening - hold po bicarb - repeat labs in am - clinically he is showing improvement - abx per ID - will hold off HD until fistula is mature
[2018-06-22] MEDS: ATORVASTATIN CA 20 MG TABLET (FP) PO SCH (21:05)
[2018-06-22] MEDS ORDERED: INSULIN (NOVOLOG) ASPART 100 UNITS/ML 10ML VIAL ONE (21:08)
[2018-06-23] MEDS ORDERED: PIPERACILLIN/TAZOBACTAM 2.25 GM VIAL IVPB ONE ×3 (02:32→17:54)
[2018-06-23] MEDS ORDERED: DEXTROSE 5%-WATER - 50 ML IVPB ONE ×3 (02:33→17:55)
[2018-06-23] MEDS: PIPERACILLIN/TAZOB 2.25 GM 2.25 GM in DEXTROSE 5%-WATER - 50 ML IVPB SCH ×3 (02:49→18:09)
[2018-06-23] MEDS: methylPREDNISolone NA SUCC 40 MG/1 ML VIAL IVPUSH SCH ×4 (02:50→21:31)
[2018-06-23] MEDS: hydrALAZINE HCL 25 MG TABLET (FP) PO SCH ×3 (06:06→21:30)
[2018-06-23] MEDS: INSULIN SLIDING SCALE (NOVOLOG) 1 VIAL SQ SCH ×3 (06:09→21:34)
[2018-06-23] MEDS: INSULIN (LEVEMIR) 100 UNITS/ML UNITS SQ SCH ×2 (06:09→21:29)
[2018-06-23 07:01] LABS: ALBUMIN 2.9 g/dl (3.4-5.0); ALK PHOS 122 U/L (45-117); ANION GAP 12 MMOL/L (8-16); BILIRUBIN,TOTAL 0.3 mg/dL (0.2-1); BLOOD UREA NITROGEN 78 mg/dL (7-18); CALCIUM 8.5 mg/dL (8.5-10.1); CHLORIDE 100 mmol/L (98-107); CO2 23 mmol/L (21-32); CREATININE 6.2 mg/dL (0.55-1.3); POTASSIUM 5.2 mmol/L (3.5-5.1); SGOT/AST 35 U/L (15-37); SGPT/ALT 10 U/L (13-61); SODIUM 136 mmol/L (136-145); TOT PROT 6.9 g/dl (6.4-8.2)
[2018-06-23 07:16] LABS: GLUCOSE,RANDOM 406 mg/dL (74-106)
[2018-06-23] MEDS: ALBUTEROL SO4 2.5/IPRATROPIUM 0.5 INH SOL 3 ML VIAL.NEB. NEB SCH ×4 (07:25→20:51)
--- NOTE | 2018-06-23 08:46 | PN ---
Progress Note, Physician Chief Complaint: no chest pain or SOB TELE: NSR - Current Medication List Current Medications: Active Medications Acetaminophen (Tylenol -) 650 mg PO Q6H PRN PRN Reason: FEVER Last Admin: 06/22/18 14:11 Dose: 650 mg Albuterol/Ipratropium (Duoneb -) 1 amp NEB RQID [facility] Last Admin: 06/23/18 07:25 Dose: 1 amp Albuterol/Ipratropium (Duoneb -) 1 amp NEB Q4H PRN PRN Reason: SHORTNESS OF BREATH Last Admin: 06/22/18 03:56 Dose: 1 amp Amlodipine Besylate (Norvasc -) 10 mg PO DAILY [facility] Last Admin: 06/22/18 09:50 Dose: 10 mg Aspirin (Ecotrin -) 81 mg PO DAILY [facility] Last Admin: 06/22/18 09:50 Dose: 81 mg Atorvastatin Calcium (Lipitor -) 20 mg PO HS [facility] Last Admin: 06/22/18 21:05 Dose: 20 mg Collagenase (Santyl -) 1 applic TP DAILY [facility]; Protocol Last Admin: 06/22/18 09:06 Dose: 1 applic Cyanocobalamin (Vitamin B12 -) 1,000 mcg PO DAILY [facility] Last Admin: 06/22/18 09:50 Dose: 1,000 mcg Guaifenesin (Robitussin -) 10 ml PO Q8H PRN PRN Reason: COUGH Hydralazine HCl (Apresoline -) 25 mg PO TID [facility] Last Admin: 06/23/18 06:06 Dose: 25 mg Piperacillin Sod/Tazobactam (Sod 2.25 gm/ Dextrose) 50 mls @ 100 mls/hr IVPB Q8H-IV [facility]; Protocol Last Admin: 06/23/18 02:49 Dose: 100 mls/hr Insulin Aspart (Novolog Vial Sliding Scale -) 1 vial SQ ACHS [facility]; Protocol Last Admin: 06/23/18 06:09 Dose: 8 units Insulin Detemir (Levemir Vial) 20 units SQ BID@0700,2200 [facility] Last Admin: 06/23/18 06:09 Dose: 20 units Isosorbide Dinitrate (Isordil -) 5 mg PO BIDISORDIL [facility] Last Admin: 06/22/18 17:05 Dose: 5 mg Methylprednisolone Sodium Succinate (Solu-Medrol -) 60 mg IVPUSH Q6H-IV [facility] Last Admin: 06/23/18 02:50 Dose: 60 mg - Objective Vital Signs: Vital Signs Temperature 98.6 F 06/23/18 05:12 Pulse Rate 91 H 06/23/18 05:12 Respiratory Rate 18 06/23/18 05:12 Blood Pressure 150/91 06/23/18 05:12 O2 Sat by Pulse Oximetry (%) 95 06/22/18 21:00 Constitutional: Yes: No Distress, Calm Cardiovascular: Yes: Regular Rate and Rhythm Respiratory: Yes: Other (scattered expiratory wheezing. Rhonchi.) Gastrointestinal: Yes: Soft Edema: No Neurological: Yes: Alert, Oriented ...Motor Strength: WNL Labs: CBC, BMP 06/22/18 11:40 06/23/18 05:30 INR, PTT INR 1.14 (0.83-1.09) H 06/12/18 23:30 Laboratory Tests 06/22/18 06/23/18 11:40 05:30 WBC 4.5 Hgb 9.7 L Hct 29.9 L Plt Count 217 Sodium 136 Potassium 5.2 H BUN 78 H Creatinine 6.2 H AST 35 ALT 10 L - ....Imaging EKG: Image Reviewed Assessment/Plan Assessment/Plan 1. Elevated troponin, abnormal stress test/Dyspnea: - trop 0.47, EKG no ischemic changes, history less consistent with ACS - recent mibi 04/2018 showed EF 30% and small area of mild ischemia. Images reviewed , mild apical ischemia with EF 30% range. - asymptomatic currently, however with elevated trop as above. Angiogram deferred given ESRD not yet on HD and contrast allergy - continue aspirin, statin - echo technically difficult, overall at least mildly reduced LV fx - concern for foot infection - may be 2/2 demand ischemia - V/Q scan negative for PE, heparin dc'ed 2. Cardiomyopathy: - EF 30% on mibi - echo confrims at least mild LV dysfx - no bb given history of worsening dyspnea and wheezing with metoprolol, no MERRILL/ ARB given CKD -Medical management of underlying possible CAD as above -continue hydralazine, imdur 3. COPD: -Pulmonary following. -Steroid taper.
[2018-06-23] MEDS ORDERED: PT OWN MED DRAWER 7, Y5N ONE (09:53)
[2018-06-23] MEDS: CYANOCOBALAMIN 1,000 MCG TABLET (FP) PO SCH (10:04)
[2018-06-23] MEDS: ASPIRIN COATED 81 MG TABLET.EC PO SCH (10:04)
[2018-06-23] MEDS: amLODIPine BESYLATE 10 MG TABLET (FP) PO SCH (10:04)
[2018-06-23] MEDS: ISOSORBIDE DINITRATE 5 MG TABLET PO SCH ×2 (10:05→18:09)
[2018-06-23] MEDS: COLLAGENASE CLOSTRIDIUM HIST. 30 GRAMS TUBE TP SCH (10:09)
--- NOTE | 2018-06-23 11:21 | PN ---
Progress Note (short form) - Note Progress Note: feels improved today Vital Signs Period Temp Pulse Resp BP Sys/Barrera Pulse Ox Last 24 Hr 97.8 F-101.2 F 75-103 18-20 128-162/68-91 95-95 cor-rrr lungs decreased bs at bases no wheezing abd soft,nt ext +edema CBC, BMP 06/22/18 11:40 06/23/18 05:30 Microbiology 06/19/18 17:05 Blood - Peripheral Venous Blood Culture - Preliminary NO GROWTH OBTAINED AFTER 72 HOURS, INCUBATION TO CONTINUE FOR 2 DAYS. 06/19/18 16:45 Blood - Peripheral Venous Blood Culture - Preliminary NO GROWTH OBTAINED AFTER 72 HOURS, INCUBATION TO CONTINUE FOR 2 DAYS. 06/20/18 11:30 Sputum - Expectorated Gram Stain - Final 06/20/18 11:30 Sputum - Expectorated Sputum Culture - Final NORMAL RESPIRATORY YANI 06/19/18 21:45 Urine For Antigen Detection Legionella Antigen - Final 06/19/18 21:45 Urine For Antigen Detection Streptococcus pneumoniae Antigen (M - Final 06/13/18 19:00 Blood - Peripheral Venous Blood Culture - Final NO GROWTH AFTER 5 DAYS INCUBATION 06/13/18 19:30 Blood - Peripheral Venous Blood Culture - Final NO GROWTH AFTER 5 DAYS INCUBATION 06/12/18 21:00 Blood - Peripheral Venous Blood Culture - Final NO GROWTH AFTER 5 DAYS INCUBATION Current Medications Acetaminophen (Tylenol -) 650 mg PO Q6H PRN PRN Reason: FEVER Last Admin: 06/22/18 14:11 Dose: 650 mg Albuterol/Ipratropium (Duoneb -) 1 amp NEB RQID [facility] Last Admin: 06/23/18 11:06 Dose: 1 amp Albuterol/Ipratropium (Duoneb -) 1 amp NEB Q4H PRN PRN Reason: SHORTNESS OF BREATH Last Admin: 06/22/18 03:56 Dose: 1 amp Amlodipine Besylate (Norvasc -) 10 mg PO DAILY [facility] Last Admin: 06/23/18 10:04 Dose: 10 mg Aspirin (Ecotrin -) 81 mg PO DAILY [facility] Last Admin: 06/23/18 10:04 Dose: 81 mg Atorvastatin Calcium (Lipitor -) 20 mg PO HS [facility] Last Admin: 06/22/18 21:05 Dose: 20 mg Collagenase (Santyl -) 1 applic TP DAILY [facility]; Protocol Last Admin: 06/22/18 09:06 Dose: 1 applic Cyanocobalamin (Vitamin B12 -) 1,000 mcg PO DAILY [facility] Last Admin: 06/23/18 10:04 Dose: 1,000 mcg Guaifenesin (Robitussin -) 10 ml PO Q8H PRN PRN Reason: COUGH Hydralazine HCl (Apresoline -) 25 mg PO TID [facility] Last Admin: 06/23/18 06:06 Dose: 25 mg Piperacillin Sod/Tazobactam (Sod 2.25 gm/ Dextrose) 50 mls @ 100 mls/hr IVPB Q8H-IV [facility]; Protocol Last Admin: 06/23/18 10:05 Dose: 100 mls/hr Insulin Aspart (Novolog Vial Sliding Scale -) 1 vial SQ ACHS [facility]; Protocol Last Admin: 06/23/18 06:09 Dose: 8 units Insulin Detemir (Levemir Vial) 20 units SQ BID@0700,2200 [facility] Last Admin: 06/23/18 06:09 Dose: 20 units Isosorbide Dinitrate (Isordil -) 5 mg PO BIDISORDIL [facility] Last Admin: 06/23/18 10:05 Dose: 5 mg Methylprednisolone Sodium Succinate (Solu-Medrol -) 60 mg IVPUSH Q6H-IV [facility] Last Admin: 06/23/18 10:05 Dose: 60 mg MRI of toe no osteomyelitis a/p fevers -lowgrade and persistent with normal WBC-esr/crp, anca pending viral resp panel RUL pneumonia cellulitis has resolved urinary antigens negative day #4 antibiotics continue zosyn history of DM/CKD Problem List - Problems (1) Chills (without fever) Code(s): R68.83 - CHILLS (WITHOUT FEVER) (2) Cellulitis Code(s): L03.90 - CELLULITIS, UNSPECIFIED (3) Wound, open, toe Code(s): S91.109A - UNSP OPEN WOUND OF UNSP TOE(S) W/O DAMAGE TO NAIL, INIT (4) CKD (chronic kidney disease) Code(s): N18.9 - CHRONIC KIDNEY DISEASE, UNSPECIFIED (5) Diabetes Code(s): E11.9 - TYPE 2 DIABETES MELLITUS WITHOUT COMPLICATIONS Qualifiers: Diabetes mellitus type: type 1 Diabetes mellitus complication status: with skin complications Diabetes mellitus complication detail: with foot ulcer Qualified Code(s): E10.621 - Type 1 diabetes mellitus with foot ulcer
--- NOTE | 2018-06-23 11:43 | PN ---
Progress Note, Physician History of Present Illness: pulmonary alert,feeling better,less dyspneic,less congested - Current Medication List Current Medications: Active Medications Acetaminophen (Tylenol -) 650 mg PO Q6H PRN PRN Reason: FEVER Last Admin: 06/22/18 14:11 Dose: 650 mg Albuterol/Ipratropium (Duoneb -) 1 amp NEB RQID [facility] Last Admin: 06/23/18 11:06 Dose: 1 amp Albuterol/Ipratropium (Duoneb -) 1 amp NEB Q4H PRN PRN Reason: SHORTNESS OF BREATH Last Admin: 06/22/18 03:56 Dose: 1 amp Amlodipine Besylate (Norvasc -) 10 mg PO DAILY [facility] Last Admin: 06/23/18 10:04 Dose: 10 mg Aspirin (Ecotrin -) 81 mg PO DAILY [facility] Last Admin: 06/23/18 10:04 Dose: 81 mg Atorvastatin Calcium (Lipitor -) 20 mg PO HS [facility] Last Admin: 06/22/18 21:05 Dose: 20 mg Collagenase (Santyl -) 1 applic TP DAILY [facility]; Protocol Last Admin: 06/22/18 09:06 Dose: 1 applic Cyanocobalamin (Vitamin B12 -) 1,000 mcg PO DAILY [facility] Last Admin: 06/23/18 10:04 Dose: 1,000 mcg Guaifenesin (Robitussin -) 10 ml PO Q8H PRN PRN Reason: COUGH Hydralazine HCl (Apresoline -) 25 mg PO TID [facility] Last Admin: 06/23/18 06:06 Dose: 25 mg Piperacillin Sod/Tazobactam (Sod 2.25 gm/ Dextrose) 50 mls @ 100 mls/hr IVPB Q8H-IV [facility]; Protocol Last Admin: 06/23/18 10:05 Dose: 100 mls/hr Insulin Aspart (Novolog Vial Sliding Scale -) 1 vial SQ ACHS [facility]; Protocol Last Admin: 06/23/18 06:09 Dose: 8 units Insulin Detemir (Levemir Vial) 20 units SQ BID@0700,2200 [facility] Last Admin: 06/23/18 06:09 Dose: 20 units Isosorbide Dinitrate (Isordil -) 5 mg PO BIDISORDIL [facility] Last Admin: 06/23/18 10:05 Dose: 5 mg Methylprednisolone Sodium Succinate (Solu-Medrol -) 60 mg IVPUSH Q6H-IV [facility] Last Admin: 06/23/18 10:05 Dose: 60 mg - Objective Vital Signs: Vital Signs Temperature 98.7 F 06/23/18 09:00 Pulse Rate 93 H 06/23/18 09:00 Respiratory Rate 18 06/23/18 09:00 Blood Pressure 140/82 06/23/18 09:00 O2 Sat by Pulse Oximetry (%) 95 06/23/18 09:00 Constitutional: Yes: Well Nourished, Calm Eyes: Yes: WNL HENT: Yes: WNL Neck: Yes: WNL Cardiovascular: Yes: Regular Rate and Rhythm, S1, S2 Respiratory: Yes: Wheezes (few wheezes) Gastrointestinal: Yes: Normal Bowel Sounds, Soft Extremities: Yes: WNL Edema: Yes (L>R) Labs: CBC, BMP 06/22/18 11:40 06/23/18 05:30 INR, PTT INR 1.14 (0.83-1.09) H 06/12/18 23:30 Problem List - Problems (1) Dyspnea Code(s): R06.00 - DYSPNEA, UNSPECIFIED (2) D-dimer, elevated Code(s): R79.89 - OTHER SPECIFIED ABNORMAL FINDINGS OF BLOOD CHEMISTRY (3) Elevated troponin Code(s): R74.8 - ABNORMAL LEVELS OF OTHER SERUM ENZYMES (4) Wound, open, toe Code(s): S91.109A - UNSP OPEN WOUND OF UNSP TOE(S) W/O DAMAGE TO NAIL, INIT (5) Acute kidney injury superimposed on chronic kidney disease Code(s): N17.9 - ACUTE KIDNEY FAILURE, UNSPECIFIED; N18.9 - CHRONIC KIDNEY DISEASE, UNSPECIFIED (6) CKD (chronic kidney disease) Code(s): N18.9 - CHRONIC KIDNEY DISEASE, UNSPECIFIED (7) HTN (hypertension) Code(s): I10 - ESSENTIAL (PRIMARY) HYPERTENSION Qualifiers: Hypertension type: essential hypertension Qualified Code(s): I10 - Essential (primary) hypertension (8) Hypercholesterolemia Code(s): E78.0 - PURE HYPERCHOLESTEROLEMIA * DO NOT USE * (9) Troponin I above reference range Code(s): R74.8 - ABNORMAL LEVELS OF OTHER SERUM ENZYMES (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 Assessment/Plan IMP DYSPNEA CARDIOMYOPATHY CKD + TROPONIN HTN DM H/O WILMS TUMOR S/P L NEPHRECTOMY PULMONARY HTN REBECCA AHI 26.5 ON SLEEP SCREEN LEFT FOOT ULCER PNEUMONIA PLAN PFTS OUTPATIENT FORMAL SLEEP STUDIES OUTPATIENT DAILY WT DVT PROPHYLAXIS ABX PER ID INHALED BRONCHODILATORS CHEST X-RAY SHORT COURSE OF MEDROL DR MCDANIEL Problem List - Problems (1) Dyspnea Code(s): R06.00 - DYSPNEA, UNSPECIFIED (2) D-dimer, elevated Code(s): R79.89 - OTHER SPECIFIED ABNORMAL FINDINGS OF BLOOD CHEMISTRY (3) Elevated troponin Code(s): R74.8 - ABNORMAL LEVELS OF OTHER SERUM ENZYMES (4) Wound, open, toe Code(s): S91.109A - UNSP OPEN WOUND OF UNSP TOE(S) W/O DAMAGE TO NAIL, INIT (5) Acute kidney injury superimposed on chronic kidney disease Code(s): N17.9 - ACUTE KIDNEY FAILURE, UNSPECIFIED; N18.9 - CHRONIC KIDNEY DISEASE, UNSPECIFIED (6) CKD (chronic kidney disease) Code(s): N18.9 - CHRONIC KIDNEY DISEASE, UNSPECIFIED (7) HTN (hypertension) Code(s): I10 - ESSENTIAL (PRIMARY) HYPERTENSION Qualifiers: Hypertension type: essential hypertension Qualified Code(s): I10 - Essential (primary) hypertension (8) Hypercholesterolemia Code(s): E78.0 - PURE HYPERCHOLESTEROLEMIA * DO NOT USE * (9) Troponin I above reference range Code(s): R74.8 - ABNORMAL LEVELS OF OTHER SERUM ENZYMES (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
--- NOTE | 2018-06-23 12:20 | PN ---
Progress Note, Physician Chief Complaint: patient seen and examined still has coughing - Current Medication List Current Medications: Active Medications Acetaminophen (Tylenol -) 650 mg PO Q6H PRN PRN Reason: FEVER Last Admin: 06/22/18 14:11 Dose: 650 mg Albuterol/Ipratropium (Duoneb -) 1 amp NEB RQID [facility] Last Admin: 06/23/18 11:06 Dose: 1 amp Albuterol/Ipratropium (Duoneb -) 1 amp NEB Q4H PRN PRN Reason: SHORTNESS OF BREATH Last Admin: 06/22/18 03:56 Dose: 1 amp Amlodipine Besylate (Norvasc -) 10 mg PO DAILY [facility] Last Admin: 06/23/18 10:04 Dose: 10 mg Aspirin (Ecotrin -) 81 mg PO DAILY [facility] Last Admin: 06/23/18 10:04 Dose: 81 mg Atorvastatin Calcium (Lipitor -) 20 mg PO HS [facility] Last Admin: 06/22/18 21:05 Dose: 20 mg Collagenase (Santyl -) 1 applic TP DAILY [facility]; Protocol Last Admin: 06/22/18 09:06 Dose: 1 applic Cyanocobalamin (Vitamin B12 -) 1,000 mcg PO DAILY [facility] Last Admin: 06/23/18 10:04 Dose: 1,000 mcg Guaifenesin (Robitussin -) 10 ml PO Q8H PRN PRN Reason: COUGH Hydralazine HCl (Apresoline -) 25 mg PO TID [facility] Last Admin: 06/23/18 06:06 Dose: 25 mg Piperacillin Sod/Tazobactam (Sod 2.25 gm/ Dextrose) 50 mls @ 100 mls/hr IVPB Q8H-IV [facility]; Protocol Last Admin: 06/23/18 10:05 Dose: 100 mls/hr Insulin Aspart (Novolog Vial Sliding Scale -) 1 vial SQ ACHS [facility]; Protocol Last Admin: 06/23/18 06:09 Dose: 8 units Insulin Detemir (Levemir Vial) 20 units SQ BID@0700,2200 [facility] Last Admin: 06/23/18 06:09 Dose: 20 units Isosorbide Dinitrate (Isordil -) 5 mg PO BIDISORDIL [facility] Last Admin: 06/23/18 10:05 Dose: 5 mg Methylprednisolone Sodium Succinate (Solu-Medrol -) 60 mg IVPUSH Q8H-IV [facility] - Objective Vital Signs: Vital Signs Temperature 98.7 F 06/23/18 09:00 Pulse Rate 93 H 06/23/18 09:00 Respiratory Rate 18 06/23/18 09:00 Blood Pressure 140/82 06/23/18 09:00 O2 Sat by Pulse Oximetry (%) 95 06/23/18 09:00 Constitutional: Yes: Calm Cardiovascular: Yes: Regular Rate and Rhythm, JVD, S1, S2 Respiratory: Yes: Wheezes Gastrointestinal: Yes: Normal Bowel Sounds, Soft Edema: Yes Neurological: Yes: Alert, Oriented Labs: CBC, BMP 06/22/18 11:40 06/23/18 05:30 INR, PTT INR 1.14 (0.83-1.09) H 06/12/18 23:30 Problem List - Problems (1) Dyspnea Assessment/Plan: iv medrol same dose for now given wheezing iv abx bronchodilator Code(s): R06.00 - DYSPNEA, UNSPECIFIED (2) Fever Assessment/Plan: blood cultures ID follow up iv abx- zosyn for PNA Microbiology 06/19/18 21:45 Urine For Antigen Detection Legionella Antigen - Final 06/19/18 21:45 Urine For Antigen Detection Streptococcus pneumoniae Antigen (M - Final 06/13/18 19:30 Blood - Peripheral Venous Blood Culture - Final NO GROWTH AFTER 5 DAYS INCUBATION 06/13/18 19:00 Blood - Peripheral Venous Blood Culture - Final NO GROWTH AFTER 5 DAYS INCUBATION 06/12/18 21:00 Blood - Peripheral Venous Blood Culture - Final NO GROWTH AFTER 5 DAYS INCUBATION Code(s): R50.9 - FEVER, UNSPECIFIED (3) Wound, open, toe Assessment/Plan: podiatry on board MRI - no evidence of osteomyltis santly to the wound iv cefazolin course done Code(s): S91.109A - UNSP OPEN WOUND OF UNSP TOE(S) W/O DAMAGE TO NAIL, INIT (4) Elevated troponin Assessment/Plan: trend troponin- down wards cardiology on board to review stress test Ejection Fraction 30% and small areas of ischemia echo at least mildly reduced LV fx iv heparin stop Code(s): R74.8 - ABNORMAL LEVELS OF OTHER SERUM ENZYMES (5) Chronic renal disease Assessment/Plan: iv lasix for leg edema will stop lasix given in crease in creatinine no dvt po bicarbonate Code(s): N18.9 - CHRONIC KIDNEY DISEASE, UNSPECIFIED (6) Diabetes Assessment/Plan: insulin bid elevated gm secondary to hyperglycemia will given one time dose of novolog 14 units Code(s): E11.9 - TYPE 2 DIABETES MELLITUS WITHOUT COMPLICATIONS Qualifiers: Diabetes mellitus type: type 1 Diabetes mellitus complication status: with skin complications Diabetes mellitus complication detail: with foot ulcer Qualified Code(s): E10.621 - Type 1 diabetes mellitus with foot ulcer (7) D-dimer, elevated Assessment/Plan: vq scan- no PE Code(s): R79.89 - OTHER SPECIFIED ABNORMAL FINDINGS OF BLOOD CHEMISTRY
[2018-06-23] MEDS ORDERED: INSULIN (NOVOLOG) ASPART 100 UNITS/ML 10ML VIAL SQ ONE ×2 (12:45→19:00)
--- NOTE | 2018-06-23 17:20 | PN ---
Progress Note, Physician History of Present Illness: Pt seen and examined at bedside. He is awake and alert. He does have cough. He complains of edema. - Current Medication List Current Medications: Active Medications Acetaminophen (Tylenol -) 650 mg PO Q6H PRN PRN Reason: FEVER Last Admin: 06/22/18 14:11 Dose: 650 mg Albuterol/Ipratropium (Duoneb -) 1 amp NEB RQID [facility] Last Admin: 06/23/18 15:30 Dose: 1 amp Albuterol/Ipratropium (Duoneb -) 1 amp NEB Q4H PRN PRN Reason: SHORTNESS OF BREATH Last Admin: 06/22/18 03:56 Dose: 1 amp Amlodipine Besylate (Norvasc -) 10 mg PO DAILY [facility] Last Admin: 06/23/18 10:04 Dose: 10 mg Aspirin (Ecotrin -) 81 mg PO DAILY [facility] Last Admin: 06/23/18 10:04 Dose: 81 mg Atorvastatin Calcium (Lipitor -) 20 mg PO HS [facility] Last Admin: 06/22/18 21:05 Dose: 20 mg Collagenase (Santyl -) 1 applic TP DAILY [facility]; Protocol Last Admin: 06/22/18 09:06 Dose: 1 applic Cyanocobalamin (Vitamin B12 -) 1,000 mcg PO DAILY [facility] Last Admin: 06/23/18 10:04 Dose: 1,000 mcg Guaifenesin (Robitussin -) 10 ml PO Q8H PRN PRN Reason: COUGH Hydralazine HCl (Apresoline -) 25 mg PO TID [facility] Last Admin: 06/23/18 14:02 Dose: 25 mg Piperacillin Sod/Tazobactam (Sod 2.25 gm/ Dextrose) 50 mls @ 100 mls/hr IVPB Q8H-IV [facility]; Protocol Last Admin: 06/23/18 10:05 Dose: 100 mls/hr Insulin Aspart (Novolog Vial Sliding Scale -) 1 vial SQ ACHS [facility]; Protocol Last Admin: 06/23/18 06:09 Dose: 8 units Insulin Detemir (Levemir Vial) 20 units SQ BID@0700,2200 [facility] Last Admin: 06/23/18 06:09 Dose: 20 units Isosorbide Dinitrate (Isordil -) 5 mg PO BIDISORDIL [facility] Last Admin: 06/23/18 10:05 Dose: 5 mg Methylprednisolone Sodium Succinate (Solu-Medrol -) 60 mg IVPUSH Q6H-IV [facility] - Objective Vital Signs: Vital Signs Temperature 98.3 F 06/23/18 14:00 Pulse Rate 76 06/23/18 14:00 Respiratory Rate 18 06/23/18 09:00 Blood Pressure 167/88 06/23/18 14:00 O2 Sat by Pulse Oximetry (%) 95 06/23/18 09:00 Constitutional: Yes: Calm Eyes: Yes: Conjunctiva Clear Cardiovascular: Yes: S1, S2 Respiratory: Yes: On Nasal O2 Gastrointestinal: Yes: Soft Genitourinary: Yes: WNL Musculoskeletal: Yes: WNL Edema: Yes Edema: LLE: 1+, RLE: 1+ Neurological: Yes: Oriented Psychiatric: Yes: Oriented Labs: CBC, BMP 06/22/18 11:40 06/23/18 05:30 INR, PTT INR 1.14 (0.83-1.09) H 06/12/18 23:30 Problem List - Problems (1) Cellulitis Code(s): L03.90 - CELLULITIS, UNSPECIFIED (2) CKD (chronic kidney disease) Code(s): N18.9 - CHRONIC KIDNEY DISEASE, UNSPECIFIED Assessment/Plan Current Medications Generic Name Dose Route Start Last Admin Trade Name Freq PRN Reason Stop Dose Admin Acetaminophen 650 mg 06/19/18 20:47 06/22/18 14:11 Tylenol - PO 650 mg Q6H PRN Administration FEVER Albuterol/Ipratropium 1 amp 06/21/18 12:00 06/23/18 15:30 Duoneb - NEB 1 amp RQID [facility] Administration Albuterol/Ipratropium 1 amp 06/22/18 03:45 06/22/18 03:56 Duoneb - NEB 1 amp Q4H PRN Administration SHORTNESS OF BREATH Amlodipine Besylate 10 mg 06/13/18 10:00 06/23/18 10:04 Norvasc - PO 10 mg DAILY [facility] Administration Aspirin 81 mg 06/13/18 10:00 06/23/18 10:04 Ecotrin - PO 81 mg DAILY [facility] Administration Atorvastatin Calcium 20 mg 06/13/18 22:00 06/22/18 21:05 Lipitor - PO 20 mg HS [facility] Administration Collagenase 1 applic 06/13/18 11:30 06/22/18 09:06 Santyl - TP 1 applic DAILY [facility] Administration Protocol Cyanocobalamin 1,000 mcg 06/13/18 10:00 06/23/18 10:04 Vitamin B12 - PO 1,000 mcg DAILY [facility] Administration Guaifenesin 10 ml 06/20/18 18:11 Robitussin - PO Q8H PRN COUGH Hydralazine HCl 25 mg 06/13/18 22:00 06/23/18 14:02 Apresoline - PO 25 mg TID [facility] Administration Piperacillin Sod/Tazobactam 50 mls @ 100 mls/hr 06/19/18 18:00 06/23/18 10:05 Sod 2.25 gm/ Dextrose IVPB 100 mls/hr Q8H-IV [facility] Administration Protocol Insulin Aspart 1 vial 06/13/18 07:00 06/23/18 06:09 Novolog Vial Sliding Scale - SQ 8 units ACHS [facility] Administration Protocol Insulin Detemir 20 units 06/12/18 22:00 06/23/18 06:09 Levemir Vial SQ 20 units BID@0700,2200 [facility] Administration Isosorbide Dinitrate 5 mg 06/15/18 11:00 06/23/18 10:05 Isordil - PO 5 mg BIDISORDIL [facility] Administration Methylprednisolone Sodium Succinate 60 mg 06/23/18 15:00 Solu-Medrol - IVPUSH Q6H-IV [facility] Impression 1. CKD 2. elevated cardiac enzymes 3. DM 4. chest pain 5. hyperlipidemia 6. HTN 7. hx of Wilms tumor, s/p left nephrectomy 8. hyperkalemia Plan - steroids with taper - will give a dose of lasix - repeat labs in am - cont abx - will hold off HD until fistula is mature
[2018-06-23] MEDS ORDERED: FUROSEMIDE 40 MG TABLET (FP) PO ONE (17:22)
[2018-06-23] MEDS ORDERED: methylPREDNISolone NA SUCC 40 MG/1 ML VIAL IVPUSH SCH (18:00)
--- NOTE | 2018-06-23 19:38 | PN ---
Progress Note (short form) - Note Progress Note: follow up left big toe. Patient feeling better. vss, tmax 98.3 +improved cellulitis, +granulation, -drainage, chronic wound left big toe continue santyl left big toe. will follow till dc.
--- NOTE | 2018-06-23 19:38 | PN ---
Progress Note (short form) - Note Progress Note: follow up left big toe. Patient being tx for pneumonia vss, +improved cellulitis, +granulation, -drainage, chronic wound left big toe continue care as per team. continue santyl. will follow till dc.
[2018-06-23] MEDS: ATORVASTATIN CA 20 MG TABLET (FP) PO SCH (21:31)
[2018-06-24] MEDS ORDERED: PIPERACILLIN/TAZOBACTAM 2.25 GM VIAL IVPB ONE ×3 (01:03→17:44)
[2018-06-24] MEDS ORDERED: DEXTROSE 5%-WATER - 50 ML IVPB ONE ×3 (01:04→17:44)
[2018-06-24] MEDS: PIPERACILLIN/TAZOB 2.25 GM 2.25 GM in DEXTROSE 5%-WATER - 50 ML IVPB SCH ×3 (01:11→18:04)
[2018-06-24] MEDS: methylPREDNISolone NA SUCC 40 MG/1 ML VIAL IVPUSH SCH ×2 (02:50→09:50)
[2018-06-24] MEDS: hydrALAZINE HCL 25 MG TABLET (FP) PO SCH ×3 (05:53→21:04)
[2018-06-24] MEDS: ALBUTEROL SO4 2.5/IPRATROPIUM 0.5 INH SOL 3 ML VIAL.NEB. NEB PRN (06:05)
[2018-06-24 06:13] LABS: EPI CELLS 5.8 /HPF (0-5/HPF); HYALINE CASTS 13 /lpf (0-8); URINE APPEARANCE CLOUDY; URINE BACTERIA 1.4 /hpf (NEGATIVE); URINE BILIRUBIN NEGATIVE (NEGATIVE); URINE COLOR YELLOW; URINE GLUCOSE (UA) 3+ (NEGATIVE); URINE KETONE NEGATIVE (NEGATIVE); URINE LEUK ESTERASE NEGATIVE (NEGATIVE); URINE NITRITE NEGATIVE (NEGATIVE); URINE PROTEIN 4+ (NEGATIVE); URINE RBC 1 /hpf (0-4); URINE UROBILINOGEN 0.2 mg/dL (0.2-1.0)
[2018-06-24] MEDS: guaiFENesin 200 MG/10 ML 10 ML UNIT-DOSE CUPS PO PRN (06:21)
[2018-06-24] MEDS: INSULIN (LEVEMIR) 100 UNITS/ML UNITS SQ SCH ×2 (06:42→22:52)
[2018-06-24] MEDS: INSULIN SLIDING SCALE (NOVOLOG) 1 VIAL SQ SCH ×4 (06:42→22:51)
[2018-06-24] MEDS: ALBUTEROL SO4 2.5/IPRATROPIUM 0.5 INH SOL 3 ML VIAL.NEB. NEB SCH ×4 (07:30→21:15)
[2018-06-24 07:56] LABS: BASO % 0.2 % (0-2.0); HEMATOCRIT 31.4 % (35.4-49); HEMOGLOBIN 10.3 GM/dL (11.7-16.9); LYMPH % 5.1 % (8-40); MCH 27.4 pg (25.7-33.7); MCHC 32.9 g/dl (32.0-35.9); MEAN CELL VOLUME 83.5 fl (80-96); MEAN PLT VOLUME 7.9 fl (7.5-11.1); MONO % 3.8 % (3.8-10.2); NEUT % 90.9 % (42.8-82.8); PLATELET COUNT 217 K/MM3 (134-434); RBC 3.76 M/mm3 (4.00-5.60); RDW 14.4 % (11.9-15.9); WHITE BLOOD COUNT 6.5 K/mm3 (4.0-10.0)
[2018-06-24 08:40] LABS: URINE WBC 5 /hpf (0-5)
[2018-06-24 08:45] LABS: ALK PHOS 108 U/L (45-117); ANION GAP 13 MMOL/L (8-16); BILIRUBIN,TOTAL 0.4 mg/dL (0.2-1); BLOOD UREA NITROGEN 97 mg/dL (7-18); CALCIUM 8.9 mg/dL (8.5-10.1); CHLORIDE 96 mmol/L (98-107); CO2 23 mmol/L (21-32); CREATININE 6.5 mg/dL (0.55-1.3); SGOT/AST 35 U/L (15-37); SGPT/ALT 13 U/L (13-61); SODIUM 131 mmol/L (136-145); TOT PROT 6.9 g/dl (6.4-8.2)
[2018-06-24 09:09] LABS: GLUCOSE,RANDOM 494 mg/dL (74-106)
--- NOTE | 2018-06-24 09:25 | PN ---
Progress Note, Physician - Current Medication List Current Medications: Active Medications Acetaminophen (Tylenol -) 650 mg PO Q6H PRN PRN Reason: FEVER Last Admin: 06/22/18 14:11 Dose: 650 mg Albuterol/Ipratropium (Duoneb -) 1 amp NEB RQID [facility] Last Admin: 06/24/18 07:30 Dose: 1 amp Albuterol/Ipratropium (Duoneb -) 1 amp NEB Q4H PRN PRN Reason: SHORTNESS OF BREATH Last Admin: 06/24/18 06:05 Dose: 1 amp Amlodipine Besylate (Norvasc -) 10 mg PO DAILY [facility] Last Admin: 06/23/18 10:04 Dose: 10 mg Aspirin (Ecotrin -) 81 mg PO DAILY [facility] Last Admin: 06/23/18 10:04 Dose: 81 mg Atorvastatin Calcium (Lipitor -) 20 mg PO HS [facility] Last Admin: 06/23/18 21:31 Dose: 20 mg Collagenase (Santyl -) 1 applic TP DAILY [facility]; Protocol Last Admin: 06/23/18 10:09 Dose: 1 applic Cyanocobalamin (Vitamin B12 -) 1,000 mcg PO DAILY [facility] Last Admin: 06/23/18 10:04 Dose: 1,000 mcg Guaifenesin (Robitussin -) 10 ml PO Q8H PRN PRN Reason: COUGH Last Admin: 06/24/18 06:21 Dose: 10 ml Hydralazine HCl (Apresoline -) 25 mg PO TID [facility] Last Admin: 06/24/18 05:53 Dose: 25 mg Piperacillin Sod/Tazobactam (Sod 2.25 gm/ Dextrose) 50 mls @ 100 mls/hr IVPB Q8H-IV [facility]; Protocol Last Admin: 06/24/18 01:11 Dose: 100 mls/hr Insulin Aspart (Novolog Vial Sliding Scale -) 1 vial SQ ACHS [facility]; Protocol Last Admin: 06/24/18 06:42 Dose: 12 units Insulin Detemir (Levemir Vial) 25 units SQ BID@0700,2200 [facility] Last Admin: 06/24/18 06:42 Dose: 25 units Isosorbide Dinitrate (Isordil -) 5 mg PO BIDISORDIL [facility] Last Admin: 06/23/18 18:09 Dose: 5 mg Methylprednisolone Sodium Succinate (Solu-Medrol -) 60 mg IVPUSH Q6H-IV [facility] Last Admin: 06/24/18 02:50 Dose: 60 mg - Objective Vital Signs: Vital Signs Temperature 98 F 06/24/18 05:00 Pulse Rate 97 H 06/24/18 05:00 Respiratory Rate 21 H 06/24/18 05:00 Blood Pressure 145/93 06/24/18 05:00 O2 Sat by Pulse Oximetry (%) 96 06/23/18 20:28 Cardiovascular: Yes: S1, S2 Respiratory: Yes: Rhonchi, Wheezes Gastrointestinal: Yes: Normal Bowel Sounds, Soft Labs: CBC, BMP 06/24/18 06:58 06/24/18 06:58 INR, PTT INR 1.14 (0.83-1.09) H 06/12/18 23:30 Assessment/Plan - Problems (1) Fever Assessment/Plan: blood cultures ID follow up noted iv abx- zosyn for PNA cxr Microbiology 06/19/18 21:45 Urine For Antigen Detection Legionella Antigen - Final 06/19/18 21:45 Urine For Antigen Detection Streptococcus pneumoniae Antigen (M - Final 06/13/18 19:30 Blood - Peripheral Venous Blood Culture - Final NO GROWTH AFTER 5 DAYS INCUBATION 06/13/18 19:00 Blood - Peripheral Venous Blood Culture - Final NO GROWTH AFTER 5 DAYS INCUBATION 06/12/18 21:00 Blood - Peripheral Venous Blood Culture - Final NO GROWTH AFTER 5 DAYS INCUBATION Code(s): R50.9 - FEVER, UNSPECIFIED (2) Wound, open, toe Assessment/Plan: podiatry on board MRI - no evidence of osteomyltis santly to the wound Code(s): S91.109A - UNSP OPEN WOUND OF UNSP TOE(S) W/O DAMAGE TO NAIL, INIT (3) Elevated troponin Assessment/Plan: trend troponin- down wards cardiology on board to review stress test Ejection Fraction 30% and small areas of ischemia echo at least mildly reduced LV fx iv heparin stop Code(s): R74.8 - ABNORMAL LEVELS OF OTHER SERUM ENZYMES (4) Chronic renal disease Assessment/Plan: iv lasix for leg edema stop Lasix given increase in creatinine no dvt po bicarbonate Code(s): N18.9 - CHRONIC KIDNEY DISEASE, UNSPECIFIED (5) Diabetes Assessment/Plan: insulin bid Code(s): E11.9 - TYPE 2 DIABETES MELLITUS WITHOUT COMPLICATIONS Qualifiers: Diabetes mellitus type: type 1 Diabetes mellitus complication status: with skin complications Diabetes mellitus complication detail: with foot ulcer Qualified Code(s): E10.621 - Type 1 diabetes mellitus with foot ulcer (6) Pneumonia IV abx nebs pulm (7) Dspnea as above cxr-
[2018-06-24] MEDS: ASPIRIN COATED 81 MG TABLET.EC PO SCH (10:13)
[2018-06-24] MEDS: CYANOCOBALAMIN 1,000 MCG TABLET (FP) PO SCH (10:13)
[2018-06-24] MEDS: amLODIPine BESYLATE 10 MG TABLET (FP) PO SCH (10:13)
[2018-06-24] MEDS: ISOSORBIDE DINITRATE 5 MG TABLET PO SCH ×2 (10:13→17:56)
[2018-06-24] MEDS: COLLAGENASE CLOSTRIDIUM HIST. 30 GRAMS TUBE TP SCH (10:14)
--- NOTE | 2018-06-24 10:24 | PN ---
Progress Note, Physician History of Present Illness: pulmonary alert,not feeling well ,c/o increased sob - Current Medication List Current Medications: Active Medications Acetaminophen (Tylenol -) 650 mg PO Q6H PRN PRN Reason: FEVER Last Admin: 06/22/18 14:11 Dose: 650 mg Albuterol/Ipratropium (Duoneb -) 1 amp NEB RQID [facility] Last Admin: 06/24/18 07:30 Dose: 1 amp Albuterol/Ipratropium (Duoneb -) 1 amp NEB Q4H PRN PRN Reason: SHORTNESS OF BREATH Last Admin: 06/24/18 06:05 Dose: 1 amp Amlodipine Besylate (Norvasc -) 10 mg PO DAILY [facility] Last Admin: 06/24/18 10:13 Dose: 10 mg Aspirin (Ecotrin -) 81 mg PO DAILY [facility] Last Admin: 06/24/18 10:13 Dose: 81 mg Atorvastatin Calcium (Lipitor -) 20 mg PO HS [facility] Last Admin: 06/23/18 21:31 Dose: 20 mg Collagenase (Santyl -) 1 applic TP DAILY [facility]; Protocol Last Admin: 06/24/18 10:14 Dose: 1 applic Cyanocobalamin (Vitamin B12 -) 1,000 mcg PO DAILY [facility] Last Admin: 06/24/18 10:13 Dose: 1,000 mcg Guaifenesin (Robitussin -) 10 ml PO Q8H PRN PRN Reason: COUGH Last Admin: 06/24/18 06:21 Dose: 10 ml Hydralazine HCl (Apresoline -) 25 mg PO TID [facility] Last Admin: 06/24/18 05:53 Dose: 25 mg Piperacillin Sod/Tazobactam (Sod 2.25 gm/ Dextrose) 50 mls @ 100 mls/hr IVPB Q8H-IV [facility]; Protocol Last Admin: 06/24/18 10:14 Dose: 100 mls/hr Insulin Aspart (Novolog Vial Sliding Scale -) 1 vial SQ ACHS [facility]; Protocol Last Admin: 06/24/18 06:42 Dose: 12 units Insulin Detemir (Levemir Vial) 25 units SQ BID@0700,2200 [facility] Last Admin: 06/24/18 06:42 Dose: 25 units Isosorbide Dinitrate (Isordil -) 5 mg PO BIDISORDIL [facility] Last Admin: 06/24/18 10:13 Dose: 5 mg Methylprednisolone Sodium Succinate (Solu-Medrol -) 60 mg IVPUSH Q6H-IV [facility] Last Admin: 06/24/18 09:50 Dose: 60 mg - Objective Vital Signs: Vital Signs Temperature 98 F 06/24/18 05:00 Pulse Rate 97 H 06/24/18 05:00 Respiratory Rate 21 H 06/24/18 05:00 Blood Pressure 145/93 06/24/18 05:00 O2 Sat by Pulse Oximetry (%) 96 06/23/18 20:28 Constitutional: Yes: Well Nourished, Calm Eyes: Yes: WNL HENT: Yes: WNL Neck: Yes: WNL Cardiovascular: Yes: Regular Rate and Rhythm, S1, S2 Respiratory: Yes: Wheezes (scattered alec wheezes) Gastrointestinal: Yes: Normal Bowel Sounds, Soft Extremities: Yes: WNL Edema: Yes Labs: CBC, BMP 06/24/18 06:58 06/24/18 06:58 INR, PTT INR 1.14 (0.83-1.09) H 06/12/18 23:30 Problem List - Problems (1) Dyspnea Code(s): R06.00 - DYSPNEA, UNSPECIFIED (2) D-dimer, elevated Code(s): R79.89 - OTHER SPECIFIED ABNORMAL FINDINGS OF BLOOD CHEMISTRY (3) Elevated troponin Code(s): R74.8 - ABNORMAL LEVELS OF OTHER SERUM ENZYMES (4) Wound, open, toe Code(s): S91.109A - UNSP OPEN WOUND OF UNSP TOE(S) W/O DAMAGE TO NAIL, INIT (5) Acute kidney injury superimposed on chronic kidney disease Code(s): N17.9 - ACUTE KIDNEY FAILURE, UNSPECIFIED; N18.9 - CHRONIC KIDNEY DISEASE, UNSPECIFIED (6) CKD (chronic kidney disease) Code(s): N18.9 - CHRONIC KIDNEY DISEASE, UNSPECIFIED (7) HTN (hypertension) Code(s): I10 - ESSENTIAL (PRIMARY) HYPERTENSION Qualifiers: Hypertension type: essential hypertension Qualified Code(s): I10 - Essential (primary) hypertension (8) Hypercholesterolemia Code(s): E78.0 - PURE HYPERCHOLESTEROLEMIA * DO NOT USE * (9) Troponin I above reference range Code(s): R74.8 - ABNORMAL LEVELS OF OTHER SERUM ENZYMES (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 Assessment/Plan IMP DYSPNEA CARDIOMYOPATHY CKD + TROPONIN HTN DM H/O WILMS TUMOR S/P L NEPHRECTOMY PULMONARY HTN REBECCA AHI 26.5 ON SLEEP SCREEN LEFT FOOT ULCER PNEUMONIA PLAN PFTS OUTPATIENT FORMAL SLEEP STUDIES OUTPATIENT DAILY WT DVT PROPHYLAXIS ABX PER ID INHALED BRONCHODILATORS CHEST X-RAY TODAY TAPER SANDRA MCDANIEL Problem List - Problems (1) Dyspnea Code(s): R06.00 - DYSPNEA, UNSPECIFIED (2) D-dimer, elevated Code(s): R79.89 - OTHER SPECIFIED ABNORMAL FINDINGS OF BLOOD CHEMISTRY (3) Elevated troponin Code(s): R74.8 - ABNORMAL LEVELS OF OTHER SERUM ENZYMES (4) Wound, open, toe Code(s): S91.109A - UNSP OPEN WOUND OF UNSP TOE(S) W/O DAMAGE TO NAIL, INIT (5) Acute kidney injury superimposed on chronic kidney disease Code(s): N17.9 - ACUTE KIDNEY FAILURE, UNSPECIFIED; N18.9 - CHRONIC KIDNEY DISEASE, UNSPECIFIED (6) CKD (chronic kidney disease) Code(s): N18.9 - CHRONIC KIDNEY DISEASE, UNSPECIFIED (7) HTN (hypertension) Code(s): I10 - ESSENTIAL (PRIMARY) HYPERTENSION Qualifiers: Hypertension type: essential hypertension Qualified Code(s): I10 - Essential (primary) hypertension (8) Hypercholesterolemia Code(s): E78.0 - PURE HYPERCHOLESTEROLEMIA * DO NOT USE * (9) Troponin I above reference range Code(s): R74.8 - ABNORMAL LEVELS OF OTHER SERUM ENZYMES (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
--- NOTE | 2018-06-24 11:27 | PN ---
Progress Note (short form) - Note Progress Note: Chief Complaint: no cp, palps. feels short of breath today TELE: NSR Current Medications Acetaminophen (Tylenol -) 650 mg PO Q6H PRN PRN Reason: FEVER Last Admin: 06/22/18 14:11 Dose: 650 mg Albuterol/Ipratropium (Duoneb -) 1 amp NEB RQID [facility] Last Admin: 06/24/18 11:01 Dose: 1 amp Albuterol/Ipratropium (Duoneb -) 1 amp NEB Q4H PRN PRN Reason: SHORTNESS OF BREATH Last Admin: 06/24/18 06:05 Dose: 1 amp Amlodipine Besylate (Norvasc -) 10 mg PO DAILY [facility] Last Admin: 06/24/18 10:13 Dose: 10 mg Aspirin (Ecotrin -) 81 mg PO DAILY [facility] Last Admin: 06/24/18 10:13 Dose: 81 mg Atorvastatin Calcium (Lipitor -) 20 mg PO HS [facility] Last Admin: 06/23/18 21:31 Dose: 20 mg Collagenase (Santyl -) 1 applic TP DAILY [facility]; Protocol Last Admin: 06/24/18 10:14 Dose: 1 applic Cyanocobalamin (Vitamin B12 -) 1,000 mcg PO DAILY [facility] Last Admin: 06/24/18 10:13 Dose: 1,000 mcg Guaifenesin (Robitussin -) 10 ml PO Q8H PRN PRN Reason: COUGH Last Admin: 06/24/18 06:21 Dose: 10 ml Hydralazine HCl (Apresoline -) 25 mg PO TID [facility] Last Admin: 06/24/18 05:53 Dose: 25 mg Piperacillin Sod/Tazobactam (Sod 2.25 gm/ Dextrose) 50 mls @ 100 mls/hr IVPB Q8H-IV [facility]; Protocol Last Admin: 06/24/18 10:14 Dose: 100 mls/hr Insulin Aspart (Novolog Vial Sliding Scale -) 1 vial SQ ACHS [facility]; Protocol Last Admin: 06/24/18 06:42 Dose: 12 units Insulin Detemir (Levemir Vial) 25 units SQ BID@0700,2200 [facility] Last Admin: 06/24/18 06:42 Dose: 25 units Isosorbide Dinitrate (Isordil -) 5 mg PO BIDISORDIL [facility] Last Admin: 06/24/18 10:13 Dose: 5 mg Methylprednisolone Sodium Succinate (Solu-Medrol -) 40 mg IVPUSH Q8H-IV [facility] Vital Signs Period Temp Pulse Resp BP Sys/Barrera Pulse Ox Last 24 Hr 97.9 F-98.3 F 76-104 20-21 133-167/74-93 96-96 Constitutional: Yes: No Distress, Calm Cardiovascular: Yes: Regular Rate and Rhythm Respiratory: Yes: Other (scattered expiratory wheezing. Rhonchi.) Gastrointestinal: Yes: Soft Edema: No Neurological: Yes: Alert, Oriented ...Motor Strength: WNL - ....Imaging EKG: Image Reviewed Assessment/Plan 1. Elevated troponin, abnormal stress test/Dyspnea: - trop 0.47, EKG no ischemic changes, history less consistent with ACS, may be 2 /2 demand in setting of food infection - recent mibi 04/2018 showed EF 30% and small area of mild ischemia. Images reviewed , mild apical ischemia with EF 30% range. - asymptomatic. Angiogram deferred given ESRD not yet on HD and contrast allergy - V/Q scan negative for PE, heparin dc'ed - echo technically difficult, overall at least mildly reduced LV fx - continue aspirin, statin 2. Cardiomyopathy: - EF 30% on mibi - echo confrims at least mild LV dysfx - no bb given history of worsening dyspnea and wheezing with metoprolol, no MERRILL/ ARB given CKD -Medical management of underlying possible CAD as above -continue hydralazine, imdur 3. COPD: -Pulmonary following. -Steroid taper. 4. ESRD - renal following, plan for HD when fistula matured
--- NOTE | 2018-06-24 15:04 | PN ---
Progress Note, Physician History of Present Illness: Pt seen and examined at bedside. He is awake and alert. He still has cough. - Current Medication List Current Medications: Active Medications Acetaminophen (Tylenol -) 650 mg PO Q6H PRN PRN Reason: FEVER Last Admin: 06/22/18 14:11 Dose: 650 mg Albuterol/Ipratropium (Duoneb -) 1 amp NEB RQID [facility] Last Admin: 06/24/18 11:01 Dose: 1 amp Albuterol/Ipratropium (Duoneb -) 1 amp NEB Q4H PRN PRN Reason: SHORTNESS OF BREATH Last Admin: 06/24/18 06:05 Dose: 1 amp Amlodipine Besylate (Norvasc -) 10 mg PO DAILY [facility] Last Admin: 06/24/18 10:13 Dose: 10 mg Aspirin (Ecotrin -) 81 mg PO DAILY [facility] Last Admin: 06/24/18 10:13 Dose: 81 mg Atorvastatin Calcium (Lipitor -) 20 mg PO HS [facility] Last Admin: 06/23/18 21:31 Dose: 20 mg Collagenase (Santyl -) 1 applic TP DAILY [facility]; Protocol Last Admin: 06/24/18 10:14 Dose: 1 applic Cyanocobalamin (Vitamin B12 -) 1,000 mcg PO DAILY [facility] Last Admin: 06/24/18 10:13 Dose: 1,000 mcg Guaifenesin (Robitussin -) 10 ml PO Q8H PRN PRN Reason: COUGH Last Admin: 06/24/18 06:21 Dose: 10 ml Hydralazine HCl (Apresoline -) 25 mg PO TID [facility] Last Admin: 06/24/18 13:01 Dose: 25 mg Piperacillin Sod/Tazobactam (Sod 2.25 gm/ Dextrose) 50 mls @ 100 mls/hr IVPB Q8H-IV [facility]; Protocol Last Admin: 06/24/18 10:14 Dose: 100 mls/hr Insulin Aspart (Novolog Vial Sliding Scale -) 1 vial SQ ACHS [facility]; Protocol Last Admin: 06/24/18 12:31 Dose: 15 units Insulin Detemir (Levemir Vial) 25 units SQ BID@0700,2200 [facility] Last Admin: 06/24/18 06:42 Dose: 25 units Isosorbide Dinitrate (Isordil -) 5 mg PO BIDISORDIL [facility] Last Admin: 06/24/18 10:13 Dose: 5 mg Methylprednisolone Sodium Succinate (Solu-Medrol -) 40 mg IVPUSH Q8H-IV [facility] - Objective Vital Signs: Vital Signs Temperature 98.2 F 06/24/18 09:00 Pulse Rate 97 H 06/24/18 09:00 Respiratory Rate 21 H 06/24/18 09:00 Blood Pressure 148/82 06/24/18 09:00 O2 Sat by Pulse Oximetry (%) 96 06/24/18 09:00 Constitutional: Yes: Calm Eyes: Yes: Conjunctiva Clear HENT: Yes: Atraumatic Neck: Yes: Supple Cardiovascular: Yes: S1, S2 Respiratory: Yes: On Nasal O2 Gastrointestinal: Yes: Soft Genitourinary: Yes: WNL Edema: Yes Edema: LLE: 1+, RLE: 1+ Neurological: Yes: Oriented Psychiatric: Yes: Oriented Labs: CBC, BMP 06/24/18 06:58 INR, PTT INR 1.14 (0.83-1.09) H 06/12/18 23:30 Problem List - Problems (1) Cellulitis Code(s): L03.90 - CELLULITIS, UNSPECIFIED (2) CKD (chronic kidney disease) Code(s): N18.9 - CHRONIC KIDNEY DISEASE, UNSPECIFIED Assessment/Plan Current Medications Generic Name Dose Route Start Last Admin Trade Name Freq PRN Reason Stop Dose Admin Acetaminophen 650 mg 06/19/18 20:47 06/22/18 14:11 Tylenol - PO 650 mg Q6H PRN Administration FEVER Albuterol/Ipratropium 1 amp 06/21/18 12:00 06/24/18 11:01 Duoneb - NEB 1 amp RQID [facility] Administration Albuterol/Ipratropium 1 amp 06/22/18 03:45 06/24/18 06:05 Duoneb - NEB 1 amp Q4H PRN Administration SHORTNESS OF BREATH Amlodipine Besylate 10 mg 06/13/18 10:00 06/24/18 10:13 Norvasc - PO 10 mg DAILY [facility] Administration Aspirin 81 mg 06/13/18 10:00 06/24/18 10:13 Ecotrin - PO 81 mg DAILY [facility] Administration Atorvastatin Calcium 20 mg 06/13/18 22:00 06/23/18 21:31 Lipitor - PO 20 mg HS [facility] Administration Collagenase 1 applic 06/13/18 11:30 06/24/18 10:14 Santyl - TP 1 applic DAILY [facility] Administration Protocol Cyanocobalamin 1,000 mcg 06/13/18 10:00 06/24/18 10:13 Vitamin B12 - PO 1,000 mcg DAILY [facility] Administration Guaifenesin 10 ml 06/20/18 18:11 06/24/18 06:21 Robitussin - PO 10 ml Q8H PRN Administration COUGH Hydralazine HCl 25 mg 06/13/18 22:00 06/24/18 13:01 Apresoline - PO 25 mg TID [facility] Administration Piperacillin Sod/Tazobactam 50 mls @ 100 mls/hr 06/19/18 18:00 06/24/18 10:14 Sod 2.25 gm/ Dextrose IVPB 100 mls/hr Q8H-IV [facility] Administration Protocol Insulin Aspart 1 vial 06/23/18 22:00 06/24/18 12:31 Novolog Vial Sliding Scale - SQ 15 units ACHS [facility] Administration Protocol Insulin Detemir 25 units 06/23/18 22:00 06/24/18 06:42 Levemir Vial SQ 25 units BID@0700,2200 [facility] Administration Isosorbide Dinitrate 5 mg 06/15/18 11:00 06/24/18 10:13 Isordil - PO 5 mg BIDISORDIL [facility] Administration Methylprednisolone Sodium Succinate 40 mg 06/24/18 18:00 Solu-Medrol - IVPUSH Q8H-IV [facility] Impression 1. CKD 2. elevated cardiac enzymes 3. DM 4. chest pain 5. hyperlipidemia 6. HTN 7. hx of Wilms tumor, s/p left nephrectomy 8. hyperkalemia Plan - taper steroids down - pulm input appreciatd - will need better glucose control - monitor renal function - check renal ultrasound - cont abx - will hold off HD until fistula is mature
[2018-06-24] MEDS ORDERED: INSULIN (NOVOLOG) ASPART 100 UNITS/ML 10ML VIAL SQ ONE ×2 (16:00→17:41)
--- NOTE | 2018-06-24 16:33 | PN ---
Progress Note (short form) - Note Progress Note: feels improved today still with cough hyperglycemia Vital Signs Period Temp Pulse Resp BP Sys/Barrera Pulse Ox Last 24 Hr 97.8 F-98.2 F 97-104 20-21 133-163/69-93 96-96 cor-rrr lungs decreased bs at bases abd soft,nt ext less edema CBC, BMP 06/24/18 06:58 06/24/18 14:35 cxray improved today Microbiology 06/19/18 17:05 Blood - Peripheral Venous Blood Culture - Preliminary NO GROWTH OBTAINED AFTER 96 HOURS, INCUBATION TO CONTINUE FOR 1 DAYS. 06/19/18 16:45 Blood - Peripheral Venous Blood Culture - Preliminary NO GROWTH OBTAINED AFTER 96 HOURS, INCUBATION TO CONTINUE FOR 1 DAYS. 06/22/18 15:45 Nasopharyngeal Swab Respiratory Virus (PCR) - Preliminary 06/20/18 11:30 Sputum - Expectorated Gram Stain - Final 06/20/18 11:30 Sputum - Expectorated Sputum Culture - Final NORMAL RESPIRATORY YANI 06/19/18 21:45 Urine For Antigen Detection Legionella Antigen - Final 06/19/18 21:45 Urine For Antigen Detection Streptococcus pneumoniae Antigen (M - Final 06/13/18 19:00 Blood - Peripheral Venous Blood Culture - Final NO GROWTH AFTER 5 DAYS INCUBATION 06/13/18 19:30 Blood - Peripheral Venous Blood Culture - Final NO GROWTH AFTER 5 DAYS INCUBATION 06/12/18 21:00 Blood - Peripheral Venous Blood Culture - Final NO GROWTH AFTER 5 DAYS INCUBATION MRI of toe no osteomyelitis a/p fevers -lowgrade and persistent with normal WBC-esr/crp, anca pending viral resp panel RUL pneumonia cellulitis has resolved urinary antigens negative day #5 of 7 antibiotics (zosyn) history of DM/CKD-worsening renal function worsening hypeglycemia due to steroids please call back if needed Problem List - Problems (1) Chills (without fever) Code(s): R68.83 - CHILLS (WITHOUT FEVER) (2) Cellulitis Code(s): L03.90 - CELLULITIS, UNSPECIFIED (3) Wound, open, toe Code(s): S91.109A - UNSP OPEN WOUND OF UNSP TOE(S) W/O DAMAGE TO NAIL, INIT (4) CKD (chronic kidney disease) Code(s): N18.9 - CHRONIC KIDNEY DISEASE, UNSPECIFIED (5) Diabetes Code(s): E11.9 - TYPE 2 DIABETES MELLITUS WITHOUT COMPLICATIONS Qualifiers: Diabetes mellitus type: type 1 Diabetes mellitus complication status: with skin complications Diabetes mellitus complication detail: with foot ulcer Qualified Code(s): E10.621 - Type 1 diabetes mellitus with foot ulcer
[2018-06-24] MEDS ORDERED: methylPREDNISolone NA SUCC 40 MG/1 ML VIAL IVPUSH SCH (18:00)
[2018-06-24] MEDS: ATORVASTATIN CA 20 MG TABLET (FP) PO SCH (21:02)
[2018-06-24] MEDS ORDERED: Insulin (LOG) Aspart 100 UNITS/ML VIAL SQ ONE (23:30)
[2018-06-24 23:40] LABS: ACETONE SERUM NEGATIVE (NEGATIVE); ANION GAP 13 MMOL/L (8-16); CALCIUM 8.3 mg/dL (8.5-10.1); CHLORIDE 94 mmol/L (98-107); CO2 21 mmol/L (21-32); CREATININE 6.6 mg/dL (0.55-1.3); SODIUM 129 mmol/L (136-145)
[2018-06-24 23:43] LABS: GLUCOSE,RANDOM 608 mg/dL (74-106)
[2018-06-24 23:44] LABS: BLOOD UREA NITROGEN 110 mg/dL (7-18)
[2018-06-25] MEDS ORDERED: Insulin (LOG) Aspart 100 UNITS/ML VIAL SQ ONE ×2 (01:00→03:42)
[2018-06-25] MEDS ORDERED: DEXTROSE 5%-WATER - 50 ML IVPB ONE ×3 (02:29→17:01)
[2018-06-25] MEDS ORDERED: PIPERACILLIN/TAZOBACTAM 2.25 GM VIAL IVPB ONE ×3 (02:29→17:00)
[2018-06-25] MEDS: PIPERACILLIN/TAZOB 2.25 GM 2.25 GM in DEXTROSE 5%-WATER - 50 ML IVPB SCH ×3 (03:00→17:17)
[2018-06-25] MEDS: INSULIN SLIDING SCALE (NOVOLOG) 1 VIAL SQ SCH ×4 (06:51→22:00)
[2018-06-25] MEDS: INSULIN (LEVEMIR) 100 UNITS/ML UNITS SQ SCH ×2 (06:51→22:00)
[2018-06-25] MEDS: hydrALAZINE HCL 25 MG TABLET (FP) PO SCH ×3 (06:52→21:40)
[2018-06-25] MEDS: ALBUTEROL SO4 2.5/IPRATROPIUM 0.5 INH SOL 3 ML VIAL.NEB. NEB SCH ×4 (07:28→21:07)
[2018-06-25] MEDS ORDERED: methylPREDNISolone NA SUCC 40 MG/1 ML VIAL IVPUSH SCH (08:00)
--- NOTE | 2018-06-25 08:34 | PN ---
Progress Note, Physician History of Present Illness: c/o increased sob no cp - Current Medication List Current Medications: Active Medications Acetaminophen (Tylenol -) 650 mg PO Q6H PRN PRN Reason: FEVER Last Admin: 06/22/18 14:11 Dose: 650 mg Albuterol/Ipratropium (Duoneb -) 1 amp NEB RQID [facility] Last Admin: 06/25/18 07:28 Dose: 1 amp Albuterol/Ipratropium (Duoneb -) 1 amp NEB Q4H PRN PRN Reason: SHORTNESS OF BREATH Last Admin: 06/24/18 06:05 Dose: 1 amp Amlodipine Besylate (Norvasc -) 10 mg PO DAILY [facility] Last Admin: 06/24/18 10:13 Dose: 10 mg Aspirin (Ecotrin -) 81 mg PO DAILY [facility] Last Admin: 06/24/18 10:13 Dose: 81 mg Atorvastatin Calcium (Lipitor -) 20 mg PO HS [facility] Last Admin: 06/24/18 21:02 Dose: 20 mg Collagenase (Santyl -) 1 applic TP DAILY [facility]; Protocol Last Admin: 06/24/18 10:14 Dose: 1 applic Cyanocobalamin (Vitamin B12 -) 1,000 mcg PO DAILY [facility] Last Admin: 06/24/18 10:13 Dose: 1,000 mcg Guaifenesin (Robitussin -) 10 ml PO Q8H PRN PRN Reason: COUGH Last Admin: 06/24/18 06:21 Dose: 10 ml Hydralazine HCl (Apresoline -) 25 mg PO TID [facility] Last Admin: 06/25/18 06:52 Dose: 25 mg Piperacillin Sod/Tazobactam (Sod 2.25 gm/ Dextrose) 50 mls @ 100 mls/hr IVPB Q8H-IV [facility]; Protocol Last Admin: 06/25/18 03:00 Dose: 100 mls/hr Insulin Aspart (Novolog Vial Sliding Scale -) 1 vial SQ ACHS [facility]; Protocol Last Admin: 06/25/18 06:51 Dose: 14 units Insulin Detemir (Levemir Vial) 28 units SQ BID@0700,2200 [facility] Last Admin: 06/25/18 06:51 Dose: 28 units Isosorbide Dinitrate (Isordil -) 5 mg PO BIDISORDIL [facility] Last Admin: 06/24/18 17:56 Dose: 5 mg Methylprednisolone Sodium Succinate (Solu-Medrol -) 40 mg IVPUSH Q12H [facility] - Objective Vital Signs: Vital Signs Temperature 98 F 06/25/18 05:55 Pulse Rate 108 H 06/25/18 05:55 Respiratory Rate 20 06/25/18 05:55 Blood Pressure 165/88 06/25/18 05:55 O2 Sat by Pulse Oximetry (%) 96 06/24/18 21:00 Cardiovascular: Yes: S1, S2 Respiratory: Yes: Diminished, Rales Gastrointestinal: Yes: Normal Bowel Sounds, Soft Edema: Yes Labs: CBC, BMP 06/24/18 06:58 06/24/18 22:40 INR, PTT INR 1.14 (0.83-1.09) H 06/12/18 23:30 Problem List - Problems (1) CHF (congestive heart failure) Assessment/Plan: weight gain and sob lasix 80 ivp now cxr and labs cardio and renal f/u Code(s): I50.9 - HEART FAILURE, UNSPECIFIED (2) Pneumonia Assessment/Plan: iv abx day 6/7 nebs follow up cxr Code(s): J18.9 - PNEUMONIA, UNSPECIFIED ORGANISM (3) Cardiomyopathy Assessment/Plan: -per cardio Code(s): I42.9 - CARDIOMYOPATHY, UNSPECIFIED (4) Type 2 diabetes mellitus with diabetic chronic kidney disease Assessment/Plan: bgm Code(s): E11.22 - TYPE 2 DIABETES MELLITUS W DIABETIC CHRONIC KIDNEY DISEASE (5) Chronic renal disease Assessment/Plan: -Dialysis per renal Code(s): N18.9 - CHRONIC KIDNEY DISEASE, UNSPECIFIED
[2018-06-25] MEDS ORDERED: FUROSEMIDE 40 MG/4 ML INJECTABLE VIAL IVPUSH ONE (09:15)
[2018-06-25] MEDS: ISOSORBIDE DINITRATE 5 MG TABLET PO SCH ×2 (10:00→17:17)
[2018-06-25] MEDS: COLLAGENASE CLOSTRIDIUM HIST. 30 GRAMS TUBE TP SCH (10:00)
[2018-06-25] MEDS: amLODIPine BESYLATE 10 MG TABLET (FP) PO SCH (10:00)
[2018-06-25] MEDS: ASPIRIN COATED 81 MG TABLET.EC PO SCH (10:00)
[2018-06-25] MEDS: CYANOCOBALAMIN 1,000 MCG TABLET (FP) PO SCH (10:00)
[2018-06-25 10:05] LABS: HEMATOCRIT 30.2 % (35.4-49); HEMOGLOBIN 9.8 GM/dL (11.7-16.9); MCH 27.2 pg (25.7-33.7); MCHC 32.6 g/dl (32.0-35.9); MEAN CELL VOLUME 83.5 fl (80-96); MEAN PLT VOLUME 8.3 fl (7.5-11.1); MONO % 7.6 % (3.8-10.2); NEUT % 88.4 % (42.8-82.8); PLATELET COUNT 225 K/MM3 (134-434); RBC 3.62 M/mm3 (4.00-5.60); RDW 14.2 % (11.9-15.9); WHITE BLOOD COUNT 9.3 K/mm3 (4.0-10.0)
--- NOTE | 2018-06-25 10:50 | PN ---
Progress Note, Physician History of Present Illness: pulmonary alert,c/o sob,cough,wheezing - Current Medication List Current Medications: Active Medications Acetaminophen (Tylenol -) 650 mg PO Q6H PRN PRN Reason: FEVER Last Admin: 06/22/18 14:11 Dose: 650 mg Albuterol/Ipratropium (Duoneb -) 1 amp NEB RQID [facility] Last Admin: 06/25/18 07:28 Dose: 1 amp Albuterol/Ipratropium (Duoneb -) 1 amp NEB Q4H PRN PRN Reason: SHORTNESS OF BREATH Last Admin: 06/24/18 06:05 Dose: 1 amp Amlodipine Besylate (Norvasc -) 10 mg PO DAILY [facility] Last Admin: 06/25/18 10:00 Dose: 10 mg Aspirin (Ecotrin -) 81 mg PO DAILY [facility] Last Admin: 06/25/18 10:00 Dose: 81 mg Atorvastatin Calcium (Lipitor -) 20 mg PO HS [facility] Last Admin: 06/24/18 21:02 Dose: 20 mg Collagenase (Santyl -) 1 applic TP DAILY [facility]; Protocol Last Admin: 06/25/18 10:00 Dose: 1 applic Cyanocobalamin (Vitamin B12 -) 1,000 mcg PO DAILY [facility] Last Admin: 06/25/18 10:00 Dose: 1,000 mcg Guaifenesin (Robitussin -) 10 ml PO Q8H PRN PRN Reason: COUGH Last Admin: 06/24/18 06:21 Dose: 10 ml Hydralazine HCl (Apresoline -) 25 mg PO TID [facility] Last Admin: 06/25/18 06:52 Dose: 25 mg Piperacillin Sod/Tazobactam (Sod 2.25 gm/ Dextrose) 50 mls @ 100 mls/hr IVPB Q8H-IV [facility]; Protocol Last Admin: 06/25/18 10:00 Dose: 100 mls/hr Insulin Aspart (Novolog Vial Sliding Scale -) 1 vial SQ ACHS [facility]; Protocol Last Admin: 06/25/18 06:51 Dose: 14 units Insulin Detemir (Levemir Vial) 28 units SQ BID@0700,2200 [facility] Last Admin: 06/25/18 06:51 Dose: 28 units Isosorbide Dinitrate (Isordil -) 5 mg PO BIDISORDIL [facility] Last Admin: 06/25/18 10:00 Dose: 5 mg Methylprednisolone Sodium Succinate (Solu-Medrol -) 40 mg IVPUSH Q12H [facility] Last Admin: 06/25/18 09:59 Dose: 40 mg - Objective Vital Signs: Vital Signs Temperature 97.7 F 06/25/18 08:51 Pulse Rate 102 H 06/25/18 08:51 Respiratory Rate 25 H 06/25/18 08:51 Blood Pressure 145/72 06/25/18 08:51 O2 Sat by Pulse Oximetry (%) 98 06/25/18 08:46 Constitutional: Yes: Well Nourished, Calm Eyes: Yes: WNL HENT: Yes: WNL Neck: Yes: WNL Cardiovascular: Yes: Regular Rate and Rhythm, S1, S2 Respiratory: Yes: Wheezes (scattered alec wheezes) Gastrointestinal: Yes: Normal Bowel Sounds, Soft Extremities: Yes: WNL Edema: No Labs: CBC, BMP 06/25/18 09:20 INR, PTT INR 1.14 (0.83-1.09) H 06/12/18 23:30 Problem List - Problems (1) Dyspnea Code(s): R06.00 - DYSPNEA, UNSPECIFIED (2) D-dimer, elevated Code(s): R79.89 - OTHER SPECIFIED ABNORMAL FINDINGS OF BLOOD CHEMISTRY (3) Elevated troponin Code(s): R74.8 - ABNORMAL LEVELS OF OTHER SERUM ENZYMES (4) Wound, open, toe Code(s): S91.109A - UNSP OPEN WOUND OF UNSP TOE(S) W/O DAMAGE TO NAIL, INIT (5) Acute kidney injury superimposed on chronic kidney disease Code(s): N17.9 - ACUTE KIDNEY FAILURE, UNSPECIFIED; N18.9 - CHRONIC KIDNEY DISEASE, UNSPECIFIED (6) CKD (chronic kidney disease) Code(s): N18.9 - CHRONIC KIDNEY DISEASE, UNSPECIFIED (7) HTN (hypertension) Code(s): I10 - ESSENTIAL (PRIMARY) HYPERTENSION Qualifiers: Hypertension type: essential hypertension Qualified Code(s): I10 - Essential (primary) hypertension (8) Hypercholesterolemia Code(s): E78.0 - PURE HYPERCHOLESTEROLEMIA * DO NOT USE * (9) Troponin I above reference range Code(s): R74.8 - ABNORMAL LEVELS OF OTHER SERUM ENZYMES (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 Assessment/Plan IMP DYSPNEA CARDIOMYOPATHY CKD + TROPONIN HTN DM H/O WILMS TUMOR S/P L NEPHRECTOMY PULMONARY HTN REBECCA AHI 26.5 ON SLEEP SCREEN LEFT FOOT ULCER PNEUMONIA PLAN PFTS OUTPATIENT FORMAL SLEEP STUDIES OUTPATIENT DAILY WT DVT PROPHYLAXIS ABX PER ID INHALED BRONCHODILATORS TAPER MEDROL ABG MONITOR LYTES,RENAL FUNCTION GLYCEMIC CONTRIOL DR MCDANIEL Problem List - Problems (1) Dyspnea Code(s): R06.00 - DYSPNEA, UNSPECIFIED (2) D-dimer, elevated Code(s): R79.89 - OTHER SPECIFIED ABNORMAL FINDINGS OF BLOOD CHEMISTRY (3) Elevated troponin Code(s): R74.8 - ABNORMAL LEVELS OF OTHER SERUM ENZYMES (4) Wound, open, toe Code(s): S91.109A - UNSP OPEN WOUND OF UNSP TOE(S) W/O DAMAGE TO NAIL, INIT (5) Acute kidney injury superimposed on chronic kidney disease Code(s): N17.9 - ACUTE KIDNEY FAILURE, UNSPECIFIED; N18.9 - CHRONIC KIDNEY DISEASE, UNSPECIFIED (6) CKD (chronic kidney disease) Code(s): N18.9 - CHRONIC KIDNEY DISEASE, UNSPECIFIED (7) HTN (hypertension) Code(s): I10 - ESSENTIAL (PRIMARY) HYPERTENSION Qualifiers: Hypertension type: essential hypertension Qualified Code(s): I10 - Essential (primary) hypertension (8) Hypercholesterolemia Code(s): E78.0 - PURE HYPERCHOLESTEROLEMIA * DO NOT USE * (9) Troponin I above reference range Code(s): R74.8 - ABNORMAL LEVELS OF OTHER SERUM ENZYMES (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
--- NOTE | 2018-06-25 10:50 | PN ---
Progress Note (short form) - Note Progress Note: Chief Complaint: no cp, palps. more short of breath this morning TELE: NSR Current Medications Acetaminophen (Tylenol -) 650 mg PO Q6H PRN PRN Reason: FEVER Last Admin: 06/22/18 14:11 Dose: 650 mg Albuterol/Ipratropium (Duoneb -) 1 amp NEB RQID [facility] Last Admin: 06/25/18 07:28 Dose: 1 amp Albuterol/Ipratropium (Duoneb -) 1 amp NEB Q4H PRN PRN Reason: SHORTNESS OF BREATH Last Admin: 06/24/18 06:05 Dose: 1 amp Amlodipine Besylate (Norvasc -) 10 mg PO DAILY [facility] Last Admin: 06/25/18 10:00 Dose: 10 mg Aspirin (Ecotrin -) 81 mg PO DAILY [facility] Last Admin: 06/25/18 10:00 Dose: 81 mg Atorvastatin Calcium (Lipitor -) 20 mg PO HS [facility] Last Admin: 06/24/18 21:02 Dose: 20 mg Collagenase (Santyl -) 1 applic TP DAILY [facility]; Protocol Last Admin: 06/25/18 10:00 Dose: 1 applic Cyanocobalamin (Vitamin B12 -) 1,000 mcg PO DAILY [facility] Last Admin: 06/25/18 10:00 Dose: 1,000 mcg Guaifenesin (Robitussin -) 10 ml PO Q8H PRN PRN Reason: COUGH Last Admin: 06/24/18 06:21 Dose: 10 ml Hydralazine HCl (Apresoline -) 25 mg PO TID [facility] Last Admin: 06/25/18 06:52 Dose: 25 mg Piperacillin Sod/Tazobactam (Sod 2.25 gm/ Dextrose) 50 mls @ 100 mls/hr IVPB Q8H-IV [facility]; Protocol Last Admin: 06/25/18 10:00 Dose: 100 mls/hr Insulin Aspart (Novolog Vial Sliding Scale -) 1 vial SQ ACHS [facility]; Protocol Last Admin: 06/25/18 06:51 Dose: 14 units Insulin Detemir (Levemir Vial) 28 units SQ BID@0700,2200 [facility] Last Admin: 06/25/18 06:51 Dose: 28 units Isosorbide Dinitrate (Isordil -) 5 mg PO BIDISORDIL [facility] Last Admin: 06/25/18 10:00 Dose: 5 mg Methylprednisolone Sodium Succinate (Solu-Medrol -) 40 mg IVPUSH Q12H [facility] Last Admin: 06/25/18 09:59 Dose: 40 mg Vital Signs Period Temp Pulse Resp BP Sys/Barrera Pulse Ox Last 24 Hr 97.7 F-98.6 F 101-108 20-25 125-165/57-88 96-98 Constitutional: Yes: No Distress, Calm Cardiovascular: Yes: Regular Rate and Rhythm. no JVD Respiratory: Yes: Other +rhonchi, diffuse exp wheezes Gastrointestinal: Yes: Soft Edema: No Neurological: Yes: Alert, Oriented not agitated no jaundice Assessment/Plan Dyspnea - appears euvolemic - wheezes on exam, on steroid taper, nebs per pulm - received IV lasix this AM, monitor Cr Elevated troponin, abnormal stress test - trop 0.47, EKG no ischemic changes, history less consistent with ACS, may be 2 /2 demand in setting of food infection - recent mibi 04/2018 showed EF 30% and small area of mild ischemia. Images reviewed , mild apical ischemia with EF 30% range. - asymptomatic. Angiogram deferred given ESRD not yet on HD and contrast allergy - V/Q scan negative for PE, heparin dc'ed - echo technically difficult, overall at least mildly reduced LV fx - continue aspirin, statin Cardiomyopathy: - EF 30% on mibi - echo confrims at least mild LV dysfx - no bb given history of worsening dyspnea and wheezing with metoprolol, no MERRILL/ ARB given CKD -Medical management of underlying possible CAD as above -continue hydralazine, imdur COPD: -manage per pulm ESRD - renal following, plan for HD when fistula matured
[2018-06-25 11:20] LABS: ALBUMIN 2.9 g/dl (3.4-5.0); ALK PHOS 116 U/L (45-117); ANION GAP 12 MMOL/L (8-16); BILIRUBIN,TOTAL 0.3 mg/dL (0.2-1); CALCIUM 8.4 mg/dL (8.5-10.1); CHLORIDE 95 mmol/L (98-107); CO2 22 mmol/L (21-32); CREATININE 6.8 mg/dL (0.55-1.3); N-TERMINAL BNP 6056.8 pg/ml (5-125); POTASSIUM 4.9 mmol/L (3.5-5.1); SGOT/AST 36 U/L (15-37); SGPT/ALT 18 U/L (13-61); SODIUM 129 mmol/L (136-145); TOT PROT 6.8 g/dl (6.4-8.2)
[2018-06-25 11:27] LABS: BLOOD UREA NITROGEN 117 mg/dL (7-18); GLUCOSE,RANDOM 430 mg/dL (74-106)
[2018-06-25 11:52] LABS: ARTERIAL BLD GAS O2 SATURATION 97.1 % (95-98); ARTERIAL BLOOD GAS BASE EXCESS -4.8 meq/l (-2-2); ARTERIAL BLOOD GAS PO2 99.7 mmHg (80-105); ARTERIAL BLOOD GAS pH 7.33 (7.35-7.45)
--- NOTE | 2018-06-25 12:05 | PN ---
Progress Note, Physician History of Present Illness: Pt seen and examine at bedside. He had shortness of breath overnight. He was given a dose of lasix this morning. - Current Medication List Current Medications: Active Medications Acetaminophen (Tylenol -) 650 mg PO Q6H PRN PRN Reason: FEVER Last Admin: 06/22/18 14:11 Dose: 650 mg Albuterol/Ipratropium (Duoneb -) 1 amp NEB RQID [facility] Last Admin: 06/25/18 11:01 Dose: 1 amp Albuterol/Ipratropium (Duoneb -) 1 amp NEB Q4H PRN PRN Reason: SHORTNESS OF BREATH Last Admin: 06/24/18 06:05 Dose: 1 amp Amlodipine Besylate (Norvasc -) 10 mg PO DAILY [facility] Last Admin: 06/25/18 10:00 Dose: 10 mg Aspirin (Ecotrin -) 81 mg PO DAILY [facility] Last Admin: 06/25/18 10:00 Dose: 81 mg Atorvastatin Calcium (Lipitor -) 20 mg PO HS [facility] Last Admin: 06/24/18 21:02 Dose: 20 mg Collagenase (Santyl -) 1 applic TP DAILY [facility]; Protocol Last Admin: 06/25/18 10:00 Dose: 1 applic Cyanocobalamin (Vitamin B12 -) 1,000 mcg PO DAILY [facility] Last Admin: 06/25/18 10:00 Dose: 1,000 mcg Guaifenesin (Robitussin -) 10 ml PO Q8H PRN PRN Reason: COUGH Last Admin: 06/24/18 06:21 Dose: 10 ml Hydralazine HCl (Apresoline -) 25 mg PO TID [facility] Last Admin: 06/25/18 06:52 Dose: 25 mg Piperacillin Sod/Tazobactam (Sod 2.25 gm/ Dextrose) 50 mls @ 100 mls/hr IVPB Q8H-IV [facility]; Protocol Last Admin: 06/25/18 10:00 Dose: 100 mls/hr Insulin Aspart (Novolog Vial Sliding Scale -) 1 vial SQ ACHS [facility]; Protocol Last Admin: 06/25/18 11:59 Dose: 12 units Insulin Detemir (Levemir Vial) 28 units SQ BID@0700,2200 [facility] Last Admin: 06/25/18 06:51 Dose: 28 units Isosorbide Dinitrate (Isordil -) 5 mg PO BIDISORDIL [facility] Last Admin: 06/25/18 10:00 Dose: 5 mg Methylprednisolone Sodium Succinate (Solu-Medrol -) 40 mg IVPUSH Q12H [facility] Last Admin: 06/25/18 09:59 Dose: 40 mg - Objective Vital Signs: Vital Signs Temperature 97.7 F 06/25/18 08:51 Pulse Rate 102 H 06/25/18 08:51 Respiratory Rate 25 H 06/25/18 08:51 Blood Pressure 145/72 06/25/18 08:51 O2 Sat by Pulse Oximetry (%) 98 06/25/18 08:46 Constitutional: Yes: Calm Eyes: Yes: Conjunctiva Clear Cardiovascular: Yes: S1, S2 Respiratory: Yes: On Nasal O2, Wheezes Gastrointestinal: Yes: Soft, Abdomen, Obese Genitourinary: Yes: WNL Musculoskeletal: Yes: WNL Edema: Yes Edema: LLE: 1+, RLE: 1+ Neurological: Yes: Oriented Psychiatric: Yes: Oriented Labs: CBC, BMP 06/25/18 09:20 06/25/18 09:20 INR, PTT INR 1.14 (0.83-1.09) H 06/12/18 23:30 Problem List - Problems (1) Cellulitis Code(s): L03.90 - CELLULITIS, UNSPECIFIED (2) CKD (chronic kidney disease) Code(s): N18.9 - CHRONIC KIDNEY DISEASE, UNSPECIFIED Assessment/Plan Current Medications Generic Name Dose Route Start Last Admin Trade Name Freq PRN Reason Stop Dose Admin Acetaminophen 650 mg 06/19/18 20:47 06/22/18 14:11 Tylenol - PO 650 mg Q6H PRN Administration FEVER Albuterol/Ipratropium 1 amp 06/21/18 12:00 06/25/18 11:01 Duoneb - NEB 1 amp RQID [facility] Administration Albuterol/Ipratropium 1 amp 06/22/18 03:45 06/24/18 06:05 Duoneb - NEB 1 amp Q4H PRN Administration SHORTNESS OF BREATH Amlodipine Besylate 10 mg 06/13/18 10:00 06/25/18 10:00 Norvasc - PO 10 mg DAILY [facility] Administration Aspirin 81 mg 06/13/18 10:00 06/25/18 10:00 Ecotrin - PO 81 mg DAILY [facility] Administration Atorvastatin Calcium 20 mg 06/13/18 22:00 06/24/18 21:02 Lipitor - PO 20 mg HS [facility] Administration Collagenase 1 applic 06/13/18 11:30 06/25/18 10:00 Santyl - TP 1 applic DAILY [facility] Administration Protocol Cyanocobalamin 1,000 mcg 06/13/18 10:00 06/25/18 10:00 Vitamin B12 - PO 1,000 mcg DAILY [facility] Administration Guaifenesin 10 ml 06/20/18 18:11 06/24/18 06:21 Robitussin - PO 10 ml Q8H PRN Administration COUGH Hydralazine HCl 25 mg 06/13/18 22:00 06/25/18 06:52 Apresoline - PO 25 mg TID [facility] Administration Piperacillin Sod/Tazobactam 50 mls @ 100 mls/hr 06/19/18 18:00 06/25/18 10:00 Sod 2.25 gm/ Dextrose IVPB 100 mls/hr Q8H-IV [facility] Administration Protocol Insulin Aspart 1 vial 06/24/18 17:45 06/25/18 11:59 Novolog Vial Sliding Scale - SQ 12 units ACHS [facility] Administration Protocol Insulin Detemir 28 units 06/24/18 17:43 06/25/18 06:51 Levemir Vial SQ 28 units BID@0700,2200 [facility] Administration Isosorbide Dinitrate 5 mg 06/15/18 11:00 06/25/18 10:00 Isordil - PO 5 mg BIDISORDIL [facility] Administration Methylprednisolone Sodium Succinate 40 mg 06/25/18 08:00 06/25/18 09:59 Solu-Medrol - IVPUSH 40 mg Q12H [facility] Administration Impression 1. CKD 2. elevated cardiac enzymes 3. DM 4. chest pain 5. hyperlipidemia 6. HTN 7. hx of Wilms tumor, s/p left nephrectomy 8. hyperkalemia Plan - renal function worsening - will call vascular to evaluate fistula - monitor response to lasix - will need better glucose control - check renal ultrasound - cont abx - will hold off HD until fistula is mature
[2018-06-25 12:14] LABS: ALLENS TEST POSITIVE
--- NOTE | 2018-06-25 12:50 | PN ---
Progress Note (short form) - Note Progress Note: Vascular Surgery US of left avf last done on 05/27 in the office. VEin size is 7mm. Volume flow is 834. Can start by placing one needle in avf. Uri Guillen DO
[2018-06-25 18:14] LABS: ATYPICAL pANCA <1:20 titer (Neg:<1:20); C-ANCA <1:20 titer (Neg:<1:20); P-ANCA <1:20 titer (Neg:<1:20)
[2018-06-25] MEDS: methylPREDNISolone NA SUCC 40 MG/1 ML VIAL IVPUSH SCH (21:39)
[2018-06-25] MEDS: ATORVASTATIN CA 20 MG TABLET (FP) PO SCH (21:39)
[2018-06-25] MEDS: guaiFENesin 200 MG/10 ML 10 ML UNIT-DOSE CUPS PO PRN (21:40)
[2018-06-26] MEDS ORDERED: PIPERACILLIN/TAZOBACTAM 2.25 GM VIAL IVPB ONE ×2 (00:53→08:47)
[2018-06-26] MEDS ORDERED: DEXTROSE 5%-WATER - 50 ML IVPB ONE ×2 (00:54→08:47)
[2018-06-26] MEDS: PIPERACILLIN/TAZOB 2.25 GM 2.25 GM in DEXTROSE 5%-WATER - 50 ML IVPB SCH ×3 (01:13→17:10)
[2018-06-26] MEDS: ALBUTEROL SO4 2.5/IPRATROPIUM 0.5 INH SOL 3 ML VIAL.NEB. NEB PRN (06:09)
[2018-06-26] MEDS: INSULIN SLIDING SCALE (NOVOLOG) 1 VIAL SQ SCH ×4 (06:12→21:48)
[2018-06-26] MEDS: INSULIN (LEVEMIR) 100 UNITS/ML UNITS SQ SCH ×2 (06:12→21:46)
[2018-06-26] MEDS: hydrALAZINE HCL 25 MG TABLET (FP) PO SCH ×4 (06:12→21:53)
[2018-06-26 06:57] LABS: BASO % 0.3 % (0-2.0); HEMATOCRIT 29.7 % (35.4-49); HEMOGLOBIN 9.8 GM/dL (11.7-16.9); LYMPH % 3.7 % (8-40); MCHC 32.9 g/dl (32.0-35.9); MEAN CELL VOLUME 82.1 fl (80-96); MEAN PLT VOLUME 8.1 fl (7.5-11.1); MONO % 5.7 % (3.8-10.2); NEUT % 90.3 % (42.8-82.8); PLATELET COUNT 245 K/MM3 (134-434); RBC 3.62 M/mm3 (4.00-5.60); RDW 13.9 % (11.9-15.9); WHITE BLOOD COUNT 10.7 K/mm3 (4.0-10.0)
[2018-06-26] MEDS: ALBUTEROL SO4 2.5/IPRATROPIUM 0.5 INH SOL 3 ML VIAL.NEB. NEB SCH ×4 (07:36→19:21)
[2018-06-26 08:11] LABS: BILIRUBIN,TOTAL 0.4 mg/dL (0.2-1); CALCIUM 8.5 mg/dL (8.5-10.1); POTASSIUM 5.3 mmol/L (3.5-5.1)
[2018-06-26 08:45] LABS: CREATININE 7.4 mg/dL (0.55-1.3)
[2018-06-26] MEDS: guaiFENesin 200 MG/10 ML 10 ML UNIT-DOSE CUPS PO PRN (09:48)
[2018-06-26] MEDS: methylPREDNISolone NA SUCC 40 MG/1 ML VIAL IVPUSH SCH ×2 (09:49→21:53)
[2018-06-26] MEDS: ASPIRIN COATED 81 MG TABLET.EC PO SCH (09:49)
[2018-06-26] MEDS: CYANOCOBALAMIN 1,000 MCG TABLET (FP) PO SCH (09:49)
[2018-06-26] MEDS: amLODIPine BESYLATE 10 MG TABLET (FP) PO SCH (09:49)
[2018-06-26] MEDS: ISOSORBIDE DINITRATE 5 MG TABLET PO SCH ×3 (09:49→18:24)
[2018-06-26] MEDS: COLLAGENASE CLOSTRIDIUM HIST. 30 GRAMS TUBE TP SCH (09:49)
--- NOTE | 2018-06-26 10:48 | PN ---
Progress Note (short form) - Note Progress Note: PULMONARY Still with shortness of breath, nonproductive cough and wheezing. CXR still with congestive changes. Vital Signs Period Temp Pulse Resp BP Sys/Barrera Pulse Ox Last 24 Hr 97.8 F-98.6 F 98-105 20-24 135-155/71-89 97 Intake & Output 06/23/18 06/24/18 06/25/18 06/26/18 23:59 23:59 23:59 23:59 Intake Total 740 1280 1670 180 Output Total 043 106 5582 450 Balance 140 580 570 -270 Weight 101.242 kg 104.326 kg 105.687 kg Gen: tachypneic with speaking Heart: RRR Lung: distant breath sounds Abd: soft, nontender Ext: + edema CBC, BMP 06/26/18 05:30 06/26/18 06:45 Active Medications Acetaminophen (Tylenol -) 650 mg PO Q6H PRN PRN Reason: FEVER Last Admin: 06/22/18 14:11 Dose: 650 mg Albuterol/Ipratropium (Duoneb -) 1 amp NEB RQID [facility] Last Admin: 06/26/18 07:36 Dose: Not Given Albuterol/Ipratropium (Duoneb -) 1 amp NEB Q4H PRN PRN Reason: SHORTNESS OF BREATH Last Admin: 06/26/18 06:09 Dose: 1 amp Amlodipine Besylate (Norvasc -) 10 mg PO DAILY [facility] Last Admin: 06/26/18 09:49 Dose: 10 mg Aspirin (Ecotrin -) 81 mg PO DAILY [facility] Last Admin: 06/26/18 09:49 Dose: 81 mg Atorvastatin Calcium (Lipitor -) 20 mg PO HS [facility] Last Admin: 06/25/18 21:39 Dose: 20 mg Collagenase (Santyl -) 1 applic TP DAILY [facility]; Protocol Last Admin: 06/26/18 09:49 Dose: 1 applic Cyanocobalamin (Vitamin B12 -) 1,000 mcg PO DAILY [facility] Last Admin: 06/26/18 09:49 Dose: 1,000 mcg Guaifenesin (Robitussin -) 10 ml PO Q8H PRN PRN Reason: COUGH Last Admin: 06/26/18 09:48 Dose: 10 ml Hydralazine HCl (Apresoline -) 25 mg PO TID [facility] Last Admin: 06/26/18 06:12 Dose: 25 mg Piperacillin Sod/Tazobactam (Sod 2.25 gm/ Dextrose) 50 mls @ 100 mls/hr IVPB Q8H-IV [facility]; Protocol Last Admin: 06/26/18 09:49 Dose: 100 mls/hr Insulin Aspart (Novolog Vial Sliding Scale -) 1 vial SQ ACHS [facility]; Protocol Last Admin: 06/26/18 06:12 Dose: 10 units Insulin Detemir (Levemir Vial) 28 units SQ BID@0700,2200 [facility] Last Admin: 06/26/18 06:12 Dose: 28 units Isosorbide Dinitrate (Isordil -) 5 mg PO BIDISORDIL [facility] Last Admin: 06/26/18 09:49 Dose: 5 mg Methylprednisolone Sodium Succinate (Solu-Medrol -) 40 mg IVPUSH BID [facility] Last Admin: 06/26/18 09:49 Dose: 40 mg A/P Acute on Chronic Systolic Heart Failure Acute on Chronic Renal Failure Pneumonia r/o COPD Exacerbation +Troponins likely Demand Ischemia Pulmonary HTN Obstructive Sleep Apnea h/o L Nephrectomy HTN DM - continue antibiotics - continue medrol at current dose - inhaled bronchodilators - O2 to keep SpO2 >90% - may need HD and volume removal - glucose control while on systemic steroids - outpt PFTs - DVT prophylaxis
--- NOTE | 2018-06-26 12:01 | PN ---
Progress Note (short form) - Note Progress Note: no cp, palps. dizzy. still sob/wheezing TELE: SR Current Medications Generic Name Dose Route Start Last Admin Trade Name Freq PRN Reason Stop Dose Admin Acetaminophen 650 mg 06/19/18 20:47 06/22/18 14:11 Tylenol - PO 650 mg Q6H PRN Administration FEVER Albuterol/Ipratropium 1 amp 06/21/18 12:00 06/26/18 07:36 Duoneb - NEB Not Given RQID [facility] Albuterol/Ipratropium 1 amp 06/22/18 03:45 06/26/18 06:09 Duoneb - NEB 1 amp Q4H PRN Administration SHORTNESS OF BREATH Amlodipine Besylate 10 mg 06/13/18 10:00 06/26/18 09:49 Norvasc - PO 10 mg DAILY [facility] Administration Aspirin 81 mg 06/13/18 10:00 06/26/18 09:49 Ecotrin - PO 81 mg DAILY [facility] Administration Atorvastatin Calcium 20 mg 06/13/18 22:00 06/25/18 21:39 Lipitor - PO 20 mg HS [facility] Administration Collagenase 1 applic 06/13/18 11:30 06/26/18 09:49 Santyl - TP 1 applic DAILY [facility] Administration Protocol Cyanocobalamin 1,000 mcg 06/13/18 10:00 06/26/18 09:49 Vitamin B12 - PO 1,000 mcg DAILY [facility] Administration Guaifenesin 10 ml 06/20/18 18:11 06/26/18 09:48 Robitussin - PO 10 ml Q8H PRN Administration COUGH Hydralazine HCl 25 mg 06/13/18 22:00 06/26/18 06:12 Apresoline - PO 25 mg TID [facility] Administration Piperacillin Sod/Tazobactam 50 mls @ 100 mls/hr 06/19/18 18:00 06/26/18 09:49 Sod 2.25 gm/ Dextrose IVPB 100 mls/hr Q8H-IV [facility] Administration Protocol Insulin Aspart 1 vial 06/24/18 17:45 06/26/18 06:12 Novolog Vial Sliding Scale - SQ 10 units ACHS [facility] Administration Protocol Insulin Detemir 28 units 06/24/18 17:43 06/26/18 06:12 Levemir Vial SQ 28 units BID@0700,2200 [facility] Administration Isosorbide Dinitrate 5 mg 06/15/18 11:00 06/26/18 09:49 Isordil - PO 5 mg BIDISORDIL [facility] Administration Methylprednisolone Sodium Succinate 40 mg 06/25/18 19:15 06/26/18 09:49 Solu-Medrol - IVPUSH 40 mg BID [facility] Administration Vital Signs Period Temp Pulse Resp BP Sys/Barrera Pulse Ox Last 24 Hr 97.8 F-98.6 F 98-105 20-22 137-155/71-89 97 Constitutional: Yes: No Distress, Calm Cardiovascular: Yes: Regular Rate and Rhythm. no JVD Respiratory: Yes: Other +rhonchi, diffuse exp wheezes Gastrointestinal: Yes: Soft Edema: No Neurological: Yes: Alert, Oriented not agitated no jaundice diaphoresis Assessment/Plan Dyspnea - appears euvolemic - wheezes on exam, on steroid taper, nebs per pulm Elevated troponin, abnormal stress test - trop 0.47, EKG no ischemic changes, history less consistent with ACS, may be 2 /2 demand in setting of food infection - recent mibi 04/2018 showed EF 30% and small area of mild ischemia. Images reviewed , mild apical ischemia with EF 30% range. - asymptomatic. Angiogram deferred given ESRD not yet on HD and contrast allergy - V/Q scan negative for PE, heparin dc'ed - echo technically difficult, overall at least mildly reduced LV fx - continue aspirin, statin Cardiomyopathy: - EF 30% on mibi - echo confrims at least mild LV dysfx - no bb given history of worsening dyspnea and wheezing with metoprolol, no MERRILL/ ARB given CKD -Medical management of underlying possible CAD as above -continue hydralazine, imdur COPD: -manage per pulm ESRD - renal following, plan for HD when fistula matured
--- NOTE | 2018-06-26 13:13 | PN ---
Progress Note, Physician Chief Complaint: patient sitting up in chair still has coughing to get HD today on iv medrol bid - Current Medication List Current Medications: Active Medications Acetaminophen (Tylenol -) 650 mg PO Q6H PRN PRN Reason: FEVER Last Admin: 06/22/18 14:11 Dose: 650 mg Albuterol/Ipratropium (Duoneb -) 1 amp NEB RQID [facility] Last Admin: 06/26/18 11:50 Dose: 1 amp Albuterol/Ipratropium (Duoneb -) 1 amp NEB Q4H PRN PRN Reason: SHORTNESS OF BREATH Last Admin: 06/26/18 06:09 Dose: 1 amp Amlodipine Besylate (Norvasc -) 10 mg PO DAILY [facility] Last Admin: 06/26/18 09:49 Dose: 10 mg Aspirin (Ecotrin -) 81 mg PO DAILY [facility] Last Admin: 06/26/18 09:49 Dose: 81 mg Atorvastatin Calcium (Lipitor -) 20 mg PO HS [facility] Last Admin: 06/25/18 21:39 Dose: 20 mg Collagenase (Santyl -) 1 applic TP DAILY [facility]; Protocol Last Admin: 06/26/18 09:49 Dose: 1 applic Cyanocobalamin (Vitamin B12 -) 1,000 mcg PO DAILY [facility] Last Admin: 06/26/18 09:49 Dose: 1,000 mcg Guaifenesin (Robitussin -) 10 ml PO Q8H PRN PRN Reason: COUGH Last Admin: 06/26/18 09:48 Dose: 10 ml Hydralazine HCl (Apresoline -) 25 mg PO TID [facility] Last Admin: 06/26/18 06:12 Dose: 25 mg Piperacillin Sod/Tazobactam (Sod 2.25 gm/ Dextrose) 50 mls @ 100 mls/hr IVPB Q8H-IV [facility]; Protocol Last Admin: 06/26/18 09:49 Dose: 100 mls/hr Insulin Aspart (Novolog Vial Sliding Scale -) 1 vial SQ ACHS [facility]; Protocol Last Admin: 06/26/18 12:01 Dose: 10 units Insulin Detemir (Levemir Vial) 28 units SQ BID@0700,2200 [facility] Last Admin: 06/26/18 06:12 Dose: 28 units Isosorbide Dinitrate (Isordil -) 5 mg PO BIDISORDIL [facility] Last Admin: 06/26/18 09:49 Dose: 5 mg Methylprednisolone Sodium Succinate (Solu-Medrol -) 40 mg IVPUSH BID [facility] Last Admin: 06/26/18 09:49 Dose: 40 mg - Objective Vital Signs: Vital Signs Temperature 97.9 F 06/26/18 05:00 Pulse Rate 98 H 06/26/18 05:00 Respiratory Rate 21 H 06/26/18 05:00 Blood Pressure 147/77 06/26/18 05:00 O2 Sat by Pulse Oximetry (%) 97 06/25/18 21:00 Constitutional: Yes: Calm Cardiovascular: Yes: Regular Rate and Rhythm, S1, S2 Respiratory: Yes: Diminished Gastrointestinal: Yes: Normal Bowel Sounds, Soft Edema: Yes Neurological: Yes: Alert, Oriented Labs: CBC, BMP 06/26/18 05:30 06/26/18 06:45 INR, PTT INR 1.14 (0.83-1.09) H 06/12/18 23:30 Problem List - Problems (1) Chronic renal disease Assessment/Plan: iv lasix given yesterday renal function getting worse start HD today renal sono no hydronephrosis- sp left nephrectomy Code(s): N18.9 - CHRONIC KIDNEY DISEASE, UNSPECIFIED (2) Dyspnea Assessment/Plan: iv medrol bid iv abx bronchodilator Code(s): R06.00 - DYSPNEA, UNSPECIFIED (3) Fever Assessment/Plan: blood cultures ID follow up iv abx- zosyn for PNA- last day today Microbiology 06/19/18 21:45 Urine For Antigen Detection Legionella Antigen - Final 06/19/18 21:45 Urine For Antigen Detection Streptococcus pneumoniae Antigen (M - Final 06/13/18 19:30 Blood - Peripheral Venous Blood Culture - Final NO GROWTH AFTER 5 DAYS INCUBATION 06/13/18 19:00 Blood - Peripheral Venous Blood Culture - Final NO GROWTH AFTER 5 DAYS INCUBATION 06/12/18 21:00 Blood - Peripheral Venous Blood Culture - Final NO GROWTH AFTER 5 DAYS INCUBATION Code(s): R50.9 - FEVER, UNSPECIFIED (4) Wound, open, toe Assessment/Plan: podiatry on board MRI - no evidence of osteo santly to the wound iv cefazolin course done Code(s): S91.109A - UNSP OPEN WOUND OF UNSP TOE(S) W/O DAMAGE TO NAIL, INIT (5) Elevated troponin Assessment/Plan: trend troponin- down wards cardiology on board to review stress test Ejection Fraction 30% and small areas of ischemia echo at least mildly reduced LV fx iv heparin stop Code(s): R74.8 - ABNORMAL LEVELS OF OTHER SERUM ENZYMES (6) Diabetes Assessment/Plan: inc bgm secondary to steroids inc dose to 30units bid levemir bid Code(s): E11.9 - TYPE 2 DIABETES MELLITUS WITHOUT COMPLICATIONS Qualifiers: Diabetes mellitus type: type 1 Diabetes mellitus complication status: with skin complications Diabetes mellitus complication detail: with foot ulcer Qualified Code(s): E10.621 - Type 1 diabetes mellitus with foot ulcer (7) D-dimer, elevated Code(s): R79.89 - OTHER SPECIFIED ABNORMAL FINDINGS OF BLOOD CHEMISTRY
[2018-06-26] MEDS ORDERED: SODIUM CHLORIDE 250 ML IV PRN (14:20)
--- NOTE | 2018-06-26 14:20 | PN ---
Progress Note, Physician History of Present Illness: Pt seen and examined at bedside. He does have shortness of breath. He denies chest pain. - Current Medication List Current Medications: Active Medications Acetaminophen (Tylenol -) 650 mg PO Q6H PRN PRN Reason: FEVER Last Admin: 06/22/18 14:11 Dose: 650 mg Albuterol/Ipratropium (Duoneb -) 1 amp NEB RQID [facility] Last Admin: 06/26/18 11:50 Dose: 1 amp Albuterol/Ipratropium (Duoneb -) 1 amp NEB Q4H PRN PRN Reason: SHORTNESS OF BREATH Last Admin: 06/26/18 06:09 Dose: 1 amp Amlodipine Besylate (Norvasc -) 10 mg PO DAILY [facility] Last Admin: 06/26/18 09:49 Dose: 10 mg Aspirin (Ecotrin -) 81 mg PO DAILY [facility] Last Admin: 06/26/18 09:49 Dose: 81 mg Atorvastatin Calcium (Lipitor -) 20 mg PO HS [facility] Last Admin: 06/25/18 21:39 Dose: 20 mg Collagenase (Santyl -) 1 applic TP DAILY [facility]; Protocol Last Admin: 06/26/18 09:49 Dose: 1 applic Cyanocobalamin (Vitamin B12 -) 1,000 mcg PO DAILY [facility] Last Admin: 06/26/18 09:49 Dose: 1,000 mcg Guaifenesin (Robitussin -) 10 ml PO Q8H PRN PRN Reason: COUGH Last Admin: 06/26/18 09:48 Dose: 10 ml Hydralazine HCl (Apresoline -) 25 mg PO TID [facility] Last Admin: 06/26/18 06:12 Dose: 25 mg Piperacillin Sod/Tazobactam (Sod 2.25 gm/ Dextrose) 50 mls @ 100 mls/hr IVPB Q8H-IV [facility]; Protocol Last Admin: 06/26/18 09:49 Dose: 100 mls/hr Insulin Aspart (Novolog Vial Sliding Scale -) 1 vial SQ ACHS [facility]; Protocol Last Admin: 06/26/18 12:01 Dose: 10 units Insulin Detemir (Levemir Vial) 30 units SQ BID@0700,2200 [facility] Isosorbide Dinitrate (Isordil -) 5 mg PO BIDISORDIL [facility] Last Admin: 06/26/18 09:49 Dose: 5 mg Methylprednisolone Sodium Succinate (Solu-Medrol -) 40 mg IVPUSH BID [facility] Last Admin: 06/26/18 09:49 Dose: 40 mg - Objective Vital Signs: Vital Signs Temperature 97.9 F 06/26/18 05:00 Pulse Rate 98 H 06/26/18 05:00 Respiratory Rate 21 H 06/26/18 05:00 Blood Pressure 147/77 06/26/18 05:00 O2 Sat by Pulse Oximetry (%) 97 06/25/18 21:00 Constitutional: Yes: Calm Eyes: Yes: Conjunctiva Clear HENT: Yes: Atraumatic Cardiovascular: Yes: S1, S2 Respiratory: Yes: On Nasal O2, Rhonchi Gastrointestinal: Yes: Soft Genitourinary: Yes: WNL Musculoskeletal: Yes: WNL Edema: Yes Edema: LLE: 1+, RLE: 1+ Neurological: Yes: Oriented Psychiatric: Yes: Oriented Labs: CBC, BMP 06/26/18 05:30 06/26/18 06:45 INR, PTT INR 1.14 (0.83-1.09) H 06/12/18 23:30 Problem List - Problems (1) Cellulitis Code(s): L03.90 - CELLULITIS, UNSPECIFIED (2) CKD (chronic kidney disease) Code(s): N18.9 - CHRONIC KIDNEY DISEASE, UNSPECIFIED Assessment/Plan Current Medications Generic Name Dose Route Start Last Admin Trade Name Freq PRN Reason Stop Dose Admin Acetaminophen 650 mg 06/19/18 20:47 06/22/18 14:11 Tylenol - PO 650 mg Q6H PRN Administration FEVER Albuterol/Ipratropium 1 amp 06/21/18 12:00 06/26/18 11:50 Duoneb - NEB 1 amp RQID [facility] Administration Albuterol/Ipratropium 1 amp 06/22/18 03:45 06/26/18 06:09 Duoneb - NEB 1 amp Q4H PRN Administration SHORTNESS OF BREATH Amlodipine Besylate 10 mg 06/13/18 10:00 06/26/18 09:49 Norvasc - PO 10 mg DAILY [facility] Administration Aspirin 81 mg 06/13/18 10:00 06/26/18 09:49 Ecotrin - PO 81 mg DAILY [facility] Administration Atorvastatin Calcium 20 mg 06/13/18 22:00 06/25/18 21:39 Lipitor - PO 20 mg HS [facility] Administration Collagenase 1 applic 06/13/18 11:30 06/26/18 09:49 Santyl - TP 1 applic DAILY [facility] Administration Protocol Cyanocobalamin 1,000 mcg 06/13/18 10:00 06/26/18 09:49 Vitamin B12 - PO 1,000 mcg DAILY [facility] Administration Guaifenesin 10 ml 06/20/18 18:11 06/26/18 09:48 Robitussin - PO 10 ml Q8H PRN Administration COUGH Hydralazine HCl 25 mg 06/13/18 22:00 06/26/18 06:12 Apresoline - PO 25 mg TID [facility] Administration Piperacillin Sod/Tazobactam 50 mls @ 100 mls/hr 06/19/18 18:00 06/26/18 09:49 Sod 2.25 gm/ Dextrose IVPB 100 mls/hr Q8H-IV [facility] Administration Protocol Insulin Aspart 1 vial 06/24/18 17:45 06/26/18 12:01 Novolog Vial Sliding Scale - SQ 10 units ACHS [facility] Administration Protocol Insulin Detemir 30 units 06/26/18 13:13 Levemir Vial SQ BID@0700,2200 [facility] Isosorbide Dinitrate 5 mg 06/15/18 11:00 06/26/18 09:49 Isordil - PO 5 mg BIDISORDIL [facility] Administration Methylprednisolone Sodium Succinate 40 mg 06/25/18 19:15 06/26/18 09:49 Solu-Medrol - IVPUSH 40 mg BID [facility] Administration Impression 1. CKD 2. elevated cardiac enzymes 3. DM 4. chest pain 5. hyperlipidemia 6. HTN 7. hx of Wilms tumor, s/p left nephrectomy 8. hyperkalemia Plan - renal function continues to worsen - will dialyze today - called and spoke to vascular, they advise to use the fistula with 2 17 gauge needles - repeat labs in am - cont oxygen - steroids with taper as tolerated
[2018-06-26] MEDS ORDERED: dilTIAZem HCL 60 MG TABLET (FP) PO ONE (18:11)
[2018-06-26] MEDS ORDERED: FUROSEMIDE 40 MG/4 ML INJECTABLE VIAL IVPUSH ONE (21:15)
[2018-06-26] MEDS: ALPRAZolam 0.25 MG TABLET PO PRN (21:53)
[2018-06-26] MEDS: ATORVASTATIN CA 20 MG TABLET (FP) PO SCH (21:53)
[2018-06-27] MEDS ORDERED: PIPERACILLIN/TAZOBACTAM 2.25 GM VIAL IVPB ONE ×3 (01:24→16:14)
[2018-06-27] MEDS ORDERED: DEXTROSE 5%-WATER - 50 ML IVPB ONE ×3 (01:24→16:14)
[2018-06-27] MEDS: PIPERACILLIN/TAZOB 2.25 GM 2.25 GM in DEXTROSE 5%-WATER - 50 ML IVPB SCH ×3 (01:25→17:19)
[2018-06-27] MEDS: hydrALAZINE HCL 25 MG TABLET (FP) PO SCH ×4 (07:00→21:40)
[2018-06-27] MEDS: INSULIN (LEVEMIR) 100 UNITS/ML UNITS SQ SCH ×2 (07:24→21:40)
[2018-06-27] MEDS: INSULIN SLIDING SCALE (NOVOLOG) 1 VIAL SQ SCH ×4 (07:25→21:41)
[2018-06-27] MEDS ORDERED: PT OWN MED DRAWER 7, Y5N ONE (07:37)
[2018-06-27] MEDS: ALBUTEROL SO4 2.5/IPRATROPIUM 0.5 INH SOL 3 ML VIAL.NEB. NEB SCH ×4 (07:40→20:40)
[2018-06-27 08:02] LABS: ALBUMIN 2.8 g/dl (3.4-5.0); BILIRUBIN,TOTAL 0.4 mg/dL (0.2-1); CALCIUM 7.8 mg/dL (8.5-10.1); POTASSIUM 5.3 mmol/L (3.5-5.1); TOT PROT 6.2 g/dl (6.4-8.2)
[2018-06-27] MEDS: amLODIPine BESYLATE 10 MG TABLET (FP) PO SCH (09:15)
[2018-06-27] MEDS: ASPIRIN COATED 81 MG TABLET.EC PO SCH (09:15)
[2018-06-27] MEDS: CYANOCOBALAMIN 1,000 MCG TABLET (FP) PO SCH (09:15)
[2018-06-27] MEDS: ISOSORBIDE DINITRATE 5 MG TABLET PO SCH ×2 (09:15→17:20)
[2018-06-27] MEDS: methylPREDNISolone NA SUCC 40 MG/1 ML VIAL IVPUSH SCH ×2 (09:17→21:41)
[2018-06-27] MEDS ORDERED: INSULIN (NOVOLOG) ASPART 100 UNITS/ML 10ML VIAL ONE (10:09)
--- NOTE | 2018-06-27 10:22 | PN ---
Progress Note, Physician Chief Complaint: feels slightly SOB TELE: Sinus tach - Current Medication List Current Medications: Active Medications Acetaminophen (Tylenol -) 650 mg PO Q6H PRN PRN Reason: FEVER Last Admin: 06/22/18 14:11 Dose: 650 mg Albuterol/Ipratropium (Duoneb -) 1 amp NEB RQID [facility] Last Admin: 06/27/18 07:40 Dose: 1 amp Albuterol/Ipratropium (Duoneb -) 1 amp NEB Q4H PRN PRN Reason: SHORTNESS OF BREATH Last Admin: 06/26/18 06:09 Dose: 1 amp Alprazolam (Xanax -) 0.5 mg PO Q8H PRN PRN Reason: ANXIETY Last Admin: 06/26/18 21:53 Dose: 0.5 mg Amlodipine Besylate (Norvasc -) 10 mg PO DAILY [facility] Last Admin: 06/27/18 09:15 Dose: 10 mg Aspirin (Ecotrin -) 81 mg PO DAILY [facility] Last Admin: 06/27/18 09:15 Dose: 81 mg Atorvastatin Calcium (Lipitor -) 20 mg PO HS [facility] Last Admin: 06/26/18 21:53 Dose: 20 mg Collagenase (Santyl -) 1 applic TP DAILY [facility]; Protocol Last Admin: 06/26/18 09:49 Dose: 1 applic Cyanocobalamin (Vitamin B12 -) 1,000 mcg PO DAILY [facility] Last Admin: 06/27/18 09:15 Dose: 1,000 mcg Guaifenesin (Robitussin -) 10 ml PO Q8H PRN PRN Reason: COUGH Last Admin: 06/26/18 09:48 Dose: 10 ml Hydralazine HCl (Apresoline -) 25 mg PO TID [facility] Last Admin: 06/27/18 07:40 Dose: 25 mg Piperacillin Sod/Tazobactam (Sod 2.25 gm/ Dextrose) 50 mls @ 100 mls/hr IVPB Q8H-IV [facility]; Protocol Last Admin: 06/27/18 09:17 Dose: 100 mls/hr Sodium Chloride (Normal Saline -) 250 mls @ 3,000 mls/hr IV PRN PRN PRN Reason: Hypotension during Dialysis Stop: 06/27/18 14:21 Insulin Aspart (Novolog Vial Sliding Scale -) 1 vial SQ ACHS [facility]; Protocol Last Admin: 06/27/18 07:25 Dose: 12 units Insulin Detemir (Levemir Vial) 30 units SQ BID@0700,2200 [facility] Last Admin: 06/27/18 07:24 Dose: 30 units Isosorbide Dinitrate (Isordil -) 5 mg PO BIDISORDIL [facility] Last Admin: 06/27/18 09:15 Dose: 5 mg Methylprednisolone Sodium Succinate (Solu-Medrol -) 40 mg IVPUSH BID [facility] Last Admin: 06/27/18 09:17 Dose: 40 mg - Objective Vital Signs: Vital Signs Temperature 98.0 F 06/27/18 09:14 Pulse Rate 107 H 06/27/18 09:14 Respiratory Rate 20 06/27/18 09:14 Blood Pressure 146/82 06/27/18 09:14 O2 Sat by Pulse Oximetry (%) 98 06/26/18 21:00 Constitutional: Yes: No Distress, Calm Eyes: Yes: Conjunctiva Clear Cardiovascular: Yes: Regular Rate and Rhythm Respiratory: Yes: Other (decreased breath sounds at bases.) Gastrointestinal: Yes: Soft, Abdomen, Obese Edema: No Neurological: Yes: Alert, Oriented ...Motor Strength: WNL Psychiatric: Yes: WNL Labs: CBC, BMP 06/26/18 05:30 06/27/18 05:30 INR, PTT INR 1.14 (0.83-1.09) H 06/12/18 23:30 Laboratory Tests 06/16/18 06/26/18 06/27/18 05:30 05:30 05:30 WBC 10.7 H Hgb 9.8 L Plt Count 245 PTT (Actin FS) 58.8 H Sodium 130 L Potassium 5.3 H BUN 145 H* Creatinine 8.0 H* Random Glucose 401 H* Total Bilirubin 0.4 AST 31 ALT 23 Alkaline Phosphatase 94 Assessment/Plan Assessment/Plan 1. Dyspnea: - appears euvolemic - wheezes on exam, on steroid taper, nebs per pulm 2. Elevated troponin, abnormal stress test: - trop 0.47, EKG no ischemic changes, history less consistent with ACS, may be 2 /2 demand in setting of food infection - recent mibi 04/2018 showed EF 30% and small area of mild ischemia. Images reviewed , mild apical ischemia with EF 30% range. - asymptomatic. Angiogram deferred given ESRD not yet on HD and contrast allergy - V/Q scan negative for PE, heparin dc'ed - echo technically difficult, overall at least mildly reduced LV fx - continue aspirin, statin 3. Cardiomyopathy: - EF 30% on mibi - echo confrims at least mild LV dysfx - no bb given history of worsening dyspnea and wheezing with metoprolol, no MERRILL/ ARB given CKD -Medical management of underlying possible CAD as above -continue hydralazine, imdur 4. COPD: -manage per pulm 5. ESRD: - renal following, plan for HD when fistula matured
--- NOTE | 2018-06-27 10:56 | PN ---
Progress Note, Physician Chief Complaint: unable to get HD yesterday via the AVF to get shiley placed today for HD - Current Medication List Current Medications: Active Medications Acetaminophen (Tylenol -) 650 mg PO Q6H PRN PRN Reason: FEVER Last Admin: 06/22/18 14:11 Dose: 650 mg Albuterol/Ipratropium (Duoneb -) 1 amp NEB RQID [facility] Last Admin: 06/27/18 07:40 Dose: 1 amp Albuterol/Ipratropium (Duoneb -) 1 amp NEB Q4H PRN PRN Reason: SHORTNESS OF BREATH Last Admin: 06/26/18 06:09 Dose: 1 amp Alprazolam (Xanax -) 0.5 mg PO Q8H PRN PRN Reason: ANXIETY Last Admin: 06/26/18 21:53 Dose: 0.5 mg Amlodipine Besylate (Norvasc -) 10 mg PO DAILY [facility] Last Admin: 06/27/18 09:15 Dose: 10 mg Aspirin (Ecotrin -) 81 mg PO DAILY [facility] Last Admin: 06/27/18 09:15 Dose: 81 mg Atorvastatin Calcium (Lipitor -) 20 mg PO HS [facility] Last Admin: 06/26/18 21:53 Dose: 20 mg Collagenase (Santyl -) 1 applic TP DAILY [facility]; Protocol Last Admin: 06/26/18 09:49 Dose: 1 applic Cyanocobalamin (Vitamin B12 -) 1,000 mcg PO DAILY [facility] Last Admin: 06/27/18 09:15 Dose: 1,000 mcg Guaifenesin (Robitussin -) 10 ml PO Q8H PRN PRN Reason: COUGH Last Admin: 06/26/18 09:48 Dose: 10 ml Hydralazine HCl (Apresoline -) 25 mg PO TID [facility] Last Admin: 06/27/18 07:40 Dose: 25 mg Piperacillin Sod/Tazobactam (Sod 2.25 gm/ Dextrose) 50 mls @ 100 mls/hr IVPB Q8H-IV [facility]; Protocol Last Admin: 06/27/18 09:17 Dose: 100 mls/hr Sodium Chloride (Normal Saline -) 250 mls @ 3,000 mls/hr IV PRN PRN PRN Reason: Hypotension during Dialysis Stop: 06/27/18 14:21 Insulin Aspart (Novolog Vial Sliding Scale -) 1 vial SQ ACHS [facility]; Protocol Last Admin: 06/27/18 07:25 Dose: 12 units Insulin Detemir (Levemir Vial) 30 units SQ BID@0700,2200 [facility] Last Admin: 06/27/18 07:24 Dose: 30 units Isosorbide Dinitrate (Isordil -) 5 mg PO BIDISORDIL [facility] Last Admin: 06/27/18 09:15 Dose: 5 mg Methylprednisolone Sodium Succinate (Solu-Medrol -) 40 mg IVPUSH BID [facility] Last Admin: 06/27/18 09:17 Dose: 40 mg - Objective Vital Signs: Vital Signs Temperature 98.0 F 06/27/18 09:14 Pulse Rate 107 H 06/27/18 09:14 Respiratory Rate 20 06/27/18 09:14 Blood Pressure 146/82 06/27/18 09:14 O2 Sat by Pulse Oximetry (%) 98 06/26/18 21:00 Constitutional: Yes: Calm Cardiovascular: Yes: Regular Rate and Rhythm, S1, S2 Respiratory: Yes: Diminished Gastrointestinal: Yes: Normal Bowel Sounds, Soft Edema: Yes Neurological: Yes: Alert, Oriented Labs: CBC, BMP 06/26/18 05:30 06/27/18 05:30 INR, PTT INR 1.14 (0.83-1.09) H 06/12/18 23:30 Problem List - Problems (1) Chronic renal disease Assessment/Plan: iv lasix given yesterday renal function getting worse HD failed yesterday via the AVF to get shiley today for HD renal sono no hydronephrosis- sp left nephrectomy Code(s): N18.9 - CHRONIC KIDNEY DISEASE, UNSPECIFIED (2) Dyspnea Assessment/Plan: iv medrol bid iv abx course completed bronchodilator Code(s): R06.00 - DYSPNEA, UNSPECIFIED (3) Fever Assessment/Plan: blood cultures no growth ID follow up iv abx- zosyn for PNA- last day today Microbiology 06/19/18 21:45 Urine For Antigen Detection Legionella Antigen - Final 06/19/18 21:45 Urine For Antigen Detection Streptococcus pneumoniae Antigen (M - Final 06/13/18 19:30 Blood - Peripheral Venous Blood Culture - Final NO GROWTH AFTER 5 DAYS INCUBATION 06/13/18 19:00 Blood - Peripheral Venous Blood Culture - Final NO GROWTH AFTER 5 DAYS INCUBATION 06/12/18 21:00 Blood - Peripheral Venous Blood Culture - Final NO GROWTH AFTER 5 DAYS INCUBATION Code(s): R50.9 - FEVER, UNSPECIFIED (4) Wound, open, toe Assessment/Plan: podiatry on board MRI - no evidence of osteo santly to the wound iv cefazolin course done Code(s): S91.109A - UNSP OPEN WOUND OF UNSP TOE(S) W/O DAMAGE TO NAIL, INIT (5) Elevated troponin Assessment/Plan: trend troponin- down wards cardiology on board to review stress test Ejection Fraction 30% and small areas of ischemia echo at least mildly reduced LV fx iv heparin stop Code(s): R74.8 - ABNORMAL LEVELS OF OTHER SERUM ENZYMES (6) Diabetes Assessment/Plan: inc bgm secondary to steroids inc dose to 30units bid levemir bid Code(s): E11.9 - TYPE 2 DIABETES MELLITUS WITHOUT COMPLICATIONS Qualifiers: Diabetes mellitus type: type 1 Diabetes mellitus complication status: with skin complications Diabetes mellitus complication detail: with foot ulcer Qualified Code(s): E10.621 - Type 1 diabetes mellitus with foot ulcer (7) D-dimer, elevated Assessment/Plan: vq scan- no PE Code(s): R79.89 - OTHER SPECIFIED ABNORMAL FINDINGS OF BLOOD CHEMISTRY
--- NOTE | 2018-06-27 10:57 | PN ---
Progress Note (short form) - Note Progress Note: follow up left big toe. Patient seen having a procedure upper body. vss, +improved cellulitis, +granulation, -drainage, chronic wound left big toe continue santyl left big toe. will follow till dc.
[2018-06-27] MEDS: COLLAGENASE CLOSTRIDIUM HIST. 30 GRAMS TUBE TP SCH (11:30)
--- NOTE | 2018-06-27 11:37 | PROC ---
Central Line Insertion - Procedure Note TIME OUT performed prior to this procedure with verbal confirmation of correct patient identity, correct side, agreement of the procedure, correct patient position, availability of necessary equipment. The consent form is complete and accurate. Risk of possible infection, bleeding and pneumothorax have been discussed with the patient. Safety precautions based on patient history or medication use has been addressed. Central Line: Dialysis Cath, Dual Lumen Position: Supine Area prepped with Chlorhexidine solution then draped using sterile barrier protection. Anesthesia: Lidocaine 1% Technique used: Seldinger Ultrasound Guided Assistance: Yes Site: Right Internal Jugular Dark venous non-pulsatile flow noted from hub of needle. The catheter was introduced. Guide wire removed intact. Each port aspirated then flushed with sterile normal saline and capped. Line secured to skin with silk suture. Biopatch placed around base of line. Sterile occlusive dressing applied. No complications. Patient tolerated the procedure well. STAT chest xray ordered to confirm position and rule out pneumothorax
--- NOTE | 2018-06-27 12:02 | PN ---
Progress Note, Physician History of Present Illness: PULMONARY ALERT,STILL DYSPNEIC. - Current Medication List Current Medications: Active Medications Acetaminophen (Tylenol -) 650 mg PO Q6H PRN PRN Reason: FEVER Last Admin: 06/22/18 14:11 Dose: 650 mg Albuterol/Ipratropium (Duoneb -) 1 amp NEB RQID [facility] Last Admin: 06/27/18 11:40 Dose: Not Given Albuterol/Ipratropium (Duoneb -) 1 amp NEB Q4H PRN PRN Reason: SHORTNESS OF BREATH Last Admin: 06/26/18 06:09 Dose: 1 amp Alprazolam (Xanax -) 0.5 mg PO Q8H PRN PRN Reason: ANXIETY Last Admin: 06/26/18 21:53 Dose: 0.5 mg Amlodipine Besylate (Norvasc -) 10 mg PO DAILY [facility] Last Admin: 06/27/18 09:15 Dose: 10 mg Aspirin (Ecotrin -) 81 mg PO DAILY [facility] Last Admin: 06/27/18 09:15 Dose: 81 mg Atorvastatin Calcium (Lipitor -) 20 mg PO HS [facility] Last Admin: 06/26/18 21:53 Dose: 20 mg Collagenase (Santyl -) 1 applic TP DAILY [facility]; Protocol Last Admin: 06/27/18 11:30 Dose: 1 applic Cyanocobalamin (Vitamin B12 -) 1,000 mcg PO DAILY [facility] Last Admin: 06/27/18 09:15 Dose: 1,000 mcg Guaifenesin (Robitussin -) 10 ml PO Q8H PRN PRN Reason: COUGH Last Admin: 06/26/18 09:48 Dose: 10 ml Hydralazine HCl (Apresoline -) 25 mg PO TID [facility] Last Admin: 06/27/18 07:40 Dose: 25 mg Piperacillin Sod/Tazobactam (Sod 2.25 gm/ Dextrose) 50 mls @ 100 mls/hr IVPB Q8H-IV [facility]; Protocol Last Admin: 06/27/18 09:17 Dose: 100 mls/hr Sodium Chloride (Normal Saline -) 250 mls @ 3,000 mls/hr IV PRN PRN PRN Reason: Hypotension during Dialysis Stop: 06/27/18 14:21 Insulin Aspart (Novolog Vial Sliding Scale -) 1 vial SQ ACHS [facility]; Protocol Last Admin: 06/27/18 11:36 Dose: 12 units Insulin Detemir (Levemir Vial) 30 units SQ BID@0700,2200 [facility] Last Admin: 06/27/18 07:24 Dose: 30 units Isosorbide Dinitrate (Isordil -) 5 mg PO BIDISORDIL [facility] Last Admin: 06/27/18 09:15 Dose: 5 mg Methylprednisolone Sodium Succinate (Solu-Medrol -) 40 mg IVPUSH BID [facility] Last Admin: 06/27/18 09:17 Dose: 40 mg - Objective Vital Signs: Vital Signs Temperature 98.0 F 06/27/18 09:14 Pulse Rate 107 H 06/27/18 09:14 Respiratory Rate 20 06/27/18 09:14 Blood Pressure 146/82 06/27/18 09:14 O2 Sat by Pulse Oximetry (%) 98 06/26/18 21:00 Constitutional: Yes: Well Nourished, Calm, Obese Eyes: Yes: WNL HENT: Yes: WNL Neck: Yes: WNL Cardiovascular: Yes: Regular Rate and Rhythm, S1, S2 Respiratory: Yes: Wheezes (SCATTERED WHEEZES) Gastrointestinal: Yes: Normal Bowel Sounds, Soft Extremities: Yes: WNL Edema: Yes Labs: CBC, BMP 06/26/18 05:30 06/27/18 05:30 INR, PTT INR 1.14 (0.83-1.09) H 06/12/18 23:30 Problem List - Problems (1) Dyspnea Code(s): R06.00 - DYSPNEA, UNSPECIFIED (2) D-dimer, elevated Code(s): R79.89 - OTHER SPECIFIED ABNORMAL FINDINGS OF BLOOD CHEMISTRY (3) Elevated troponin Code(s): R74.8 - ABNORMAL LEVELS OF OTHER SERUM ENZYMES (4) Wound, open, toe Code(s): S91.109A - UNSP OPEN WOUND OF UNSP TOE(S) W/O DAMAGE TO NAIL, INIT (5) Acute kidney injury superimposed on chronic kidney disease Code(s): N17.9 - ACUTE KIDNEY FAILURE, UNSPECIFIED; N18.9 - CHRONIC KIDNEY DISEASE, UNSPECIFIED (6) CKD (chronic kidney disease) Code(s): N18.9 - CHRONIC KIDNEY DISEASE, UNSPECIFIED (7) HTN (hypertension) Code(s): I10 - ESSENTIAL (PRIMARY) HYPERTENSION Qualifiers: Hypertension type: essential hypertension Qualified Code(s): I10 - Essential (primary) hypertension (8) Hypercholesterolemia Code(s): E78.0 - PURE HYPERCHOLESTEROLEMIA * DO NOT USE * (9) Troponin I above reference range Code(s): R74.8 - ABNORMAL LEVELS OF OTHER SERUM ENZYMES (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 Assessment/Plan IMP DYSPNEA CARDIOMYOPATHY CKD + TROPONIN HTN DM H/O WILMS TUMOR S/P L NEPHRECTOMY PULMONARY HTN REBECCA AHI 26.5 ON SLEEP SCREEN LEFT FOOT ULCER PNEUMONIA PLAN HD PER DONOVAN PFTS OUTPATIENT FORMAL SLEEP STUDIES OUTPATIENT DAILY WT DVT PROPHYLAXIS ABX PER ID INHALED BRONCHODILATORS MEDROL MONITOR LYTES,RENAL FUNCTION GLYCEMIC CONTRIOL DR MCDANIEL Problem List - Problems (1) Dyspnea Code(s): R06.00 - DYSPNEA, UNSPECIFIED (2) D-dimer, elevated Code(s): R79.89 - OTHER SPECIFIED ABNORMAL FINDINGS OF BLOOD CHEMISTRY (3) Elevated troponin Code(s): R74.8 - ABNORMAL LEVELS OF OTHER SERUM ENZYMES (4) Wound, open, toe Code(s): S91.109A - UNSP OPEN WOUND OF UNSP TOE(S) W/O DAMAGE TO NAIL, INIT (5) Acute kidney injury superimposed on chronic kidney disease Code(s): N17.9 - ACUTE KIDNEY FAILURE, UNSPECIFIED; N18.9 - CHRONIC KIDNEY DISEASE, UNSPECIFIED (6) CKD (chronic kidney disease) Code(s): N18.9 - CHRONIC KIDNEY DISEASE, UNSPECIFIED (7) HTN (hypertension) Code(s): I10 - ESSENTIAL (PRIMARY) HYPERTENSION Qualifiers: Hypertension type: essential hypertension Qualified Code(s): I10 - Essential (primary) hypertension (8) Hypercholesterolemia Code(s): E78.0 - PURE HYPERCHOLESTEROLEMIA * DO NOT USE * (9) Troponin I above reference range Code(s): R74.8 - ABNORMAL LEVELS OF OTHER SERUM ENZYMES (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
--- NOTE | 2018-06-27 12:28 | PN ---
Progress Note (short form) - Note Progress Note: Microbiology 06/22/18 15:45 Nasopharyngeal Swab Respiratory Virus (PCR) - Preliminary katia have iD see patient Problem List - Problems (1) Chronic renal disease Code(s): N18.9 - CHRONIC KIDNEY DISEASE, UNSPECIFIED (2) Dyspnea Code(s): R06.00 - DYSPNEA, UNSPECIFIED (3) Fever Code(s): R50.9 - FEVER, UNSPECIFIED (4) Wound, open, toe Code(s): S91.109A - UNSP OPEN WOUND OF UNSP TOE(S) W/O DAMAGE TO NAIL, INIT (5) Elevated troponin Code(s): R74.8 - ABNORMAL LEVELS OF OTHER SERUM ENZYMES (6) Diabetes Code(s): E11.9 - TYPE 2 DIABETES MELLITUS WITHOUT COMPLICATIONS Qualifiers: Diabetes mellitus type: type 1 Diabetes mellitus complication status: with skin complications Diabetes mellitus complication detail: with foot ulcer Qualified Code(s): E10.621 - Type 1 diabetes mellitus with foot ulcer (7) D-dimer, elevated Code(s): R79.89 - OTHER SPECIFIED ABNORMAL FINDINGS OF BLOOD CHEMISTRY
[2018-06-27] MEDS ORDERED: SODIUM CHLORIDE 250 ML IV PRN (15:20)
--- NOTE | 2018-06-27 15:20 | PN ---
Progress Note, Physician History of Present Illness: Pt seen and examined at bedside. He is awake and alert. Could not dialyze last night as fistula was not mature. Had catheter placed this morning and he is getting HD. - Current Medication List Current Medications: Active Medications Acetaminophen (Tylenol -) 650 mg PO Q6H PRN PRN Reason: FEVER Last Admin: 06/22/18 14:11 Dose: 650 mg Albuterol/Ipratropium (Duoneb -) 1 amp NEB RQID [facility] Last Admin: 06/27/18 11:40 Dose: Not Given Albuterol/Ipratropium (Duoneb -) 1 amp NEB Q4H PRN PRN Reason: SHORTNESS OF BREATH Last Admin: 06/26/18 06:09 Dose: 1 amp Alprazolam (Xanax -) 0.5 mg PO Q8H PRN PRN Reason: ANXIETY Last Admin: 06/26/18 21:53 Dose: 0.5 mg Amlodipine Besylate (Norvasc -) 10 mg PO DAILY [facility] Last Admin: 06/27/18 09:15 Dose: 10 mg Aspirin (Ecotrin -) 81 mg PO DAILY [facility] Last Admin: 06/27/18 09:15 Dose: 81 mg Atorvastatin Calcium (Lipitor -) 20 mg PO HS [facility] Last Admin: 06/26/18 21:53 Dose: 20 mg Collagenase (Santyl -) 1 applic TP DAILY [facility]; Protocol Last Admin: 06/27/18 11:30 Dose: 1 applic Cyanocobalamin (Vitamin B12 -) 1,000 mcg PO DAILY [facility] Last Admin: 06/27/18 09:15 Dose: 1,000 mcg Guaifenesin (Robitussin -) 10 ml PO Q8H PRN PRN Reason: COUGH Last Admin: 06/26/18 09:48 Dose: 10 ml Hydralazine HCl (Apresoline -) 25 mg PO TID [facility] Last Admin: 06/27/18 14:30 Dose: Not Given Piperacillin Sod/Tazobactam (Sod 2.25 gm/ Dextrose) 50 mls @ 100 mls/hr IVPB Q8H-IV [facility]; Protocol Last Admin: 06/27/18 09:17 Dose: 100 mls/hr Sodium Chloride (Normal Saline -) 250 mls @ 3,000 mls/hr IV PRN PRN PRN Reason: Hypotension during Dialysis Stop: 06/27/18 14:21 Insulin Aspart (Novolog Vial Sliding Scale -) 1 vial SQ ACHS [facility]; Protocol Last Admin: 06/27/18 11:36 Dose: 12 units Insulin Detemir (Levemir Vial) 30 units SQ BID@0700,2200 [facility] Last Admin: 06/27/18 07:24 Dose: 30 units Isosorbide Dinitrate (Isordil -) 5 mg PO BIDISORDIL [facility] Last Admin: 06/27/18 09:15 Dose: 5 mg Methylprednisolone Sodium Succinate (Solu-Medrol -) 40 mg IVPUSH BID [facility] Last Admin: 06/27/18 09:17 Dose: 40 mg - Objective Vital Signs: Vital Signs Temperature 97.4 F L 06/27/18 13:20 Pulse Rate 108 H 06/27/18 13:45 Respiratory Rate 16 06/27/18 13:45 Blood Pressure 176/73 H 06/27/18 13:45 O2 Sat by Pulse Oximetry (%) 98 06/27/18 09:18 Constitutional: Yes: Calm Eyes: Yes: Conjunctiva Clear HENT: Yes: Atraumatic Neck: Yes: Supple Cardiovascular: Yes: S1, S2 Respiratory: Yes: On Nasal O2, Rhonchi Gastrointestinal: Yes: Soft, Abdomen, Obese Genitourinary: Yes: WNL Edema: Yes Edema: LLE: 1+, RLE: 1+ Neurological: Yes: Oriented Psychiatric: Yes: Oriented Labs: CBC, BMP 06/26/18 05:30 06/27/18 05:30 INR, PTT INR 1.14 (0.83-1.09) H 06/12/18 23:30 Problem List - Problems (1) Cellulitis Code(s): L03.90 - CELLULITIS, UNSPECIFIED (2) CKD (chronic kidney disease) Code(s): N18.9 - CHRONIC KIDNEY DISEASE, UNSPECIFIED Assessment/Plan Current Medications Generic Name Dose Route Start Last Admin Trade Name Freq PRN Reason Stop Dose Admin Acetaminophen 650 mg 06/19/18 20:47 06/22/18 14:11 Tylenol - PO 650 mg Q6H PRN Administration FEVER Albuterol/Ipratropium 1 amp 06/21/18 12:00 06/27/18 11:40 Duoneb - NEB Not Given RQID [facility] Albuterol/Ipratropium 1 amp 06/22/18 03:45 06/26/18 06:09 Duoneb - NEB 1 amp Q4H PRN Administration SHORTNESS OF BREATH Alprazolam 0.5 mg 06/26/18 18:12 06/26/18 21:53 Xanax - PO 0.5 mg Q8H PRN Administration ANXIETY Amlodipine Besylate 10 mg 06/13/18 10:00 06/27/18 09:15 Norvasc - PO 10 mg DAILY [facility] Administration Aspirin 81 mg 06/13/18 10:00 06/27/18 09:15 Ecotrin - PO 81 mg DAILY [facility] Administration Atorvastatin Calcium 20 mg 06/13/18 22:00 06/26/18 21:53 Lipitor - PO 20 mg HS [facility] Administration Collagenase 1 applic 06/13/18 11:30 06/27/18 11:30 Santyl - TP 1 applic DAILY [facility] Administration Protocol Cyanocobalamin 1,000 mcg 06/13/18 10:00 06/27/18 09:15 Vitamin B12 - PO 1,000 mcg DAILY [facility] Administration Guaifenesin 10 ml 06/20/18 18:11 06/26/18 09:48 Robitussin - PO 10 ml Q8H PRN Administration COUGH Hydralazine HCl 25 mg 06/13/18 22:00 06/27/18 14:30 Apresoline - PO Not Given TID [facility] Piperacillin Sod/Tazobactam 50 mls @ 100 mls/hr 06/19/18 18:00 06/27/18 09:17 Sod 2.25 gm/ Dextrose IVPB 100 mls/hr Q8H-IV [facility] Administration Protocol Sodium Chloride 250 mls @ 3,000 mls/hr 06/26/18 14:20 Normal Saline - IV 06/27/18 14:21 PRN PRN Hypotension during Dialysis Insulin Aspart 1 vial 06/24/18 17:45 06/27/18 11:36 Novolog Vial Sliding Scale - SQ 12 units ACHS [facility] Administration Protocol Insulin Detemir 30 units 06/26/18 13:13 06/27/18 07:24 Levemir Vial SQ 30 units BID@0700,2200 [facility] Administration Isosorbide Dinitrate 5 mg 06/15/18 11:00 06/27/18 09:15 Isordil - PO 5 mg BIDISORDIL [facility] Administration Methylprednisolone Sodium Succinate 40 mg 06/25/18 19:15 06/27/18 09:17 Solu-Medrol - IVPUSH 40 mg BID [facility] Administration Impression 1. CKD 2. elevated cardiac enzymes 3. DM 4. chest pain 5. hyperlipidemia 6. HTN 7. hx of Wilms tumor, s/p left nephrectomy 8. hyperkalemia 9. ESRD Plan - HD today - will dialyze again tomorrow - renal diet - monitor potassium - fistula has thrill and bruit - vascular follow up - steroids with taper as tolerated
[2018-06-27] MEDS: ATORVASTATIN CA 20 MG TABLET (FP) PO SCH (21:40)
[2018-06-27] MEDS: ALPRAZolam 0.25 MG TABLET PO PRN (21:46)
[2018-06-28] MEDS ORDERED: DEXTROSE 5%-WATER - 50 ML IVPB ONE ×3 (01:12→17:40)
[2018-06-28] MEDS ORDERED: PIPERACILLIN/TAZOBACTAM 2.25 GM VIAL IVPB ONE ×3 (01:12→17:39)
[2018-06-28] MEDS: PIPERACILLIN/TAZOB 2.25 GM 2.25 GM in DEXTROSE 5%-WATER - 50 ML IVPB SCH ×3 (01:14→18:18)
[2018-06-28] MEDS: INSULIN (LEVEMIR) 100 UNITS/ML UNITS SQ SCH ×2 (06:25→22:19)
[2018-06-28] MEDS: hydrALAZINE HCL 25 MG TABLET (FP) PO SCH ×3 (06:25→22:20)
[2018-06-28] MEDS: INSULIN SLIDING SCALE (NOVOLOG) 1 VIAL SQ SCH ×4 (06:26→22:21)
[2018-06-28] MEDS: ALBUTEROL SO4 2.5/IPRATROPIUM 0.5 INH SOL 3 ML VIAL.NEB. NEB SCH ×4 (08:05→21:22)
--- NOTE | 2018-06-28 08:58 | PN ---
Progress Note (short form) - Note Progress Note: RENAL Pt is awake and alert comfortable c/o pain in left arm over avf had hd via a shiley yesterday Last Vital Signs Temp Pulse Resp BP Pulse Ox 97.7 F 108 H 20 158/72 96 06/28/18 06:00 06/28/18 06:00 06/28/18 06:00 06/28/18 06:00 06/27/18 21:00 lungs clear cvs s1s2 rr abd soft ext +edema neuro a+ox3 CBC, BMP 06/26/18 05:30 06/27/18 05:30 Current Medications Generic Name Dose Route Start Last Admin Trade Name Freq PRN Reason Stop Dose Admin Acetaminophen 650 mg 06/19/18 20:47 06/22/18 14:11 Tylenol - PO 650 mg Q6H PRN Administration FEVER Albuterol/Ipratropium 1 amp 06/21/18 12:00 06/28/18 08:05 Duoneb - NEB 1 amp RQID [facility] Administration Albuterol/Ipratropium 1 amp 06/22/18 03:45 06/26/18 06:09 Duoneb - NEB 1 amp Q4H PRN Administration SHORTNESS OF BREATH Alprazolam 0.5 mg 06/26/18 18:12 06/27/18 21:46 Xanax - PO 0.5 mg Q8H PRN Administration ANXIETY Amlodipine Besylate 10 mg 06/13/18 10:00 06/27/18 09:15 Norvasc - PO 10 mg DAILY [facility] Administration Aspirin 81 mg 06/13/18 10:00 06/27/18 09:15 Ecotrin - PO 81 mg DAILY [facility] Administration Atorvastatin Calcium 20 mg 06/13/18 22:00 06/27/18 21:40 Lipitor - PO 20 mg HS [facility] Administration Collagenase 1 applic 06/13/18 11:30 06/27/18 11:30 Santyl - TP 1 applic DAILY [facility] Administration Protocol Cyanocobalamin 1,000 mcg 06/13/18 10:00 06/27/18 09:15 Vitamin B12 - PO 1,000 mcg DAILY [facility] Administration Guaifenesin 10 ml 06/20/18 18:11 06/26/18 09:48 Robitussin - PO 10 ml Q8H PRN Administration COUGH Hydralazine HCl 25 mg 06/13/18 22:00 06/28/18 06:25 Apresoline - PO 25 mg TID [facility] Administration Piperacillin Sod/Tazobactam 50 mls @ 100 mls/hr 06/19/18 18:00 06/28/18 01:14 Sod 2.25 gm/ Dextrose IVPB 100 mls/hr Q8H-IV [facility] Administration Protocol Sodium Chloride 250 mls @ 3,000 mls/hr 06/26/18 14:20 Normal Saline - IV 06/27/18 14:21 PRN PRN Hypotension during Dialysis Sodium Chloride 250 mls @ 3,000 mls/hr 06/27/18 15:20 Normal Saline - IV 06/28/18 15:20 PRN PRN Hypotension during Dialysis Insulin Aspart 1 vial 06/24/18 17:45 06/28/18 06:26 Novolog Vial Sliding Scale - SQ 8 units ACHS [facility] Administration Protocol Insulin Detemir 30 units 06/26/18 13:13 06/28/18 06:25 Levemir Vial SQ 30 units BID@0700,2200 [facility] Administration Isosorbide Dinitrate 5 mg 06/15/18 11:00 06/27/18 17:20 Isordil - PO 5 mg BIDISORDIL [facility] Administration Methylprednisolone Sodium Succinate 40 mg 06/25/18 19:15 06/27/18 21:41 Solu-Medrol - IVPUSH 40 mg BID [facility] Administration Impression 1. CKD 2. elevated cardiac enzymes 3. DM 4. chest pain 5. hyperlipidemia 6. HTN 7. hx of Wilms tumor, s/p left nephrectomy 8. hyperkalemia 9. ESRD 10 hyperglycemia may improve with tapering prednisone Plan - HD today - renal diet - monitor potassium - fistula evaluation by vascular - steroids with taper as tolerated [facility]
--- NOTE | 2018-06-28 10:36 | PN ---
Progress Note, Physician Chief Complaint: ESRD Diabetes mellitus Fluid overload History of Present Illness: NAD Seen by nephrology HD for today BGM running high Denies SOB at rest or ambulation - Current Medication List Current Medications: Active Medications Acetaminophen (Tylenol -) 650 mg PO Q6H PRN PRN Reason: FEVER Last Admin: 06/22/18 14:11 Dose: 650 mg Albuterol/Ipratropium (Duoneb -) 1 amp NEB RQID [facility] Last Admin: 06/28/18 08:05 Dose: 1 amp Albuterol/Ipratropium (Duoneb -) 1 amp NEB Q4H PRN PRN Reason: SHORTNESS OF BREATH Last Admin: 06/26/18 06:09 Dose: 1 amp Alprazolam (Xanax -) 0.5 mg PO Q8H PRN PRN Reason: ANXIETY Last Admin: 06/27/18 21:46 Dose: 0.5 mg Amlodipine Besylate (Norvasc -) 10 mg PO DAILY [facility] Last Admin: 06/27/18 09:15 Dose: 10 mg Aspirin (Ecotrin -) 81 mg PO DAILY [facility] Last Admin: 06/27/18 09:15 Dose: 81 mg Atorvastatin Calcium (Lipitor -) 20 mg PO HS [facility] Last Admin: 06/27/18 21:40 Dose: 20 mg Collagenase (Santyl -) 1 applic TP DAILY [facility]; Protocol Last Admin: 06/27/18 11:30 Dose: 1 applic Cyanocobalamin (Vitamin B12 -) 1,000 mcg PO DAILY [facility] Last Admin: 06/27/18 09:15 Dose: 1,000 mcg Guaifenesin (Robitussin -) 10 ml PO Q8H PRN PRN Reason: COUGH Last Admin: 06/26/18 09:48 Dose: 10 ml Hydralazine HCl (Apresoline -) 25 mg PO TID [facility] Last Admin: 06/28/18 06:25 Dose: 25 mg Piperacillin Sod/Tazobactam (Sod 2.25 gm/ Dextrose) 50 mls @ 100 mls/hr IVPB Q8H-IV [facility]; Protocol Last Admin: 06/28/18 01:14 Dose: 100 mls/hr Sodium Chloride (Normal Saline -) 250 mls @ 3,000 mls/hr IV PRN PRN PRN Reason: Hypotension during Dialysis Stop: 06/27/18 14:21 Sodium Chloride (Normal Saline -) 250 mls @ 3,000 mls/hr IV PRN PRN PRN Reason: Hypotension during Dialysis Stop: 06/28/18 15:20 Insulin Aspart (Novolog Vial Sliding Scale -) 1 vial SQ ACHS [facility]; Protocol Last Admin: 06/28/18 06:26 Dose: 8 units Insulin Detemir (Levemir Vial) 34 units SQ BID@0700,2200 [facility] Isosorbide Dinitrate (Isordil -) 5 mg PO BIDISORDIL [facility] Last Admin: 06/27/18 17:20 Dose: 5 mg Methylprednisolone Sodium Succinate (Solu-Medrol -) 40 mg IVPUSH BID [facility] Last Admin: 06/27/18 21:41 Dose: 40 mg - Objective Vital Signs: Vital Signs Temperature 97.7 F 06/28/18 09:43 Pulse Rate 107 H 06/28/18 09:43 Respiratory Rate 18 06/28/18 09:43 Blood Pressure 160/77 06/28/18 09:43 O2 Sat by Pulse Oximetry (%) 96 06/27/18 21:00 Constitutional: Yes: Well Nourished, No Distress, Calm Cardiovascular: Yes: Regular Rate and Rhythm Respiratory: Yes: Regular Gastrointestinal: Yes: Normal Bowel Sounds, Soft, Abdomen, Obese Genitourinary: Yes: WNL Musculoskeletal: Yes: WNL Extremities: Yes: WNL Edema: Yes Peripheral Pulses WNL: Yes Neurological: Yes: Alert, Oriented Psychiatric: Yes: Alert, Oriented Labs: CBC, BMP 06/26/18 05:30 06/27/18 05:30 INR, PTT INR 1.14 (0.83-1.09) H 06/12/18 23:30 Problem List - Problems (1) ESRD (end stage renal disease) Assessment/Plan: -nephrology on board -HD as per nephrology -AVF not mature, has Permacath Code(s): N18.6 - END STAGE RENAL DISEASE (2) CHF (congestive heart failure) Assessment/Plan: -HD Code(s): I50.9 - HEART FAILURE, UNSPECIFIED (3) Cardiomyopathy Assessment/Plan: -Cardiology on board -Tele monitor -EF-30% Code(s): I42.9 - CARDIOMYOPATHY, UNSPECIFIED (4) Dyspnea Assessment/Plan: -Nasal O2 prn -Bronchodilators -IV medrol -Pulmonary on board Code(s): R06.00 - DYSPNEA, UNSPECIFIED (5) Diabetes Assessment/Plan: A1c at 6.4 -BGM AC HS -Diabetic/renal diet -BGM running high 2/2 to medrol -Increase levemir to 34 U BID -Novolog sliding scale Code(s): E11.9 - TYPE 2 DIABETES MELLITUS WITHOUT COMPLICATIONS Qualifiers: Diabetes mellitus type: type 1 Diabetes mellitus complication status: with skin complications Diabetes mellitus complication detail: with foot ulcer Qualified Code(s): E10.621 - Type 1 diabetes mellitus with foot ulcer Assessment/Plan see problem list
[2018-06-28] MEDS: methylPREDNISolone NA SUCC 40 MG/1 ML VIAL IVPUSH SCH (10:47)
[2018-06-28] MEDS: amLODIPine BESYLATE 10 MG TABLET (FP) PO SCH (10:47)
[2018-06-28] MEDS: ASPIRIN COATED 81 MG TABLET.EC PO SCH (10:48)
[2018-06-28] MEDS: ISOSORBIDE DINITRATE 5 MG TABLET PO SCH ×2 (10:48→22:20)
[2018-06-28] MEDS: CYANOCOBALAMIN 1,000 MCG TABLET (FP) PO SCH (10:48)
[2018-06-28 11:12] LABS: HBSAG SCREEN Negative (Negative); HEP A AB, IGM Negative (Negative); HEP B CORE AB, TOT Negative (Negative)
--- NOTE | 2018-06-28 11:21 | PN ---
Progress Note (short form) - Note Progress Note: no cp, palps. dizzy. sob better after HD. TELE: SR Current Medications Generic Name Dose Route Start Last Admin Trade Name Freq PRN Reason Stop Dose Admin Acetaminophen 650 mg 06/19/18 20:47 06/22/18 14:11 Tylenol - PO 650 mg Q6H PRN Administration FEVER Albuterol/Ipratropium 1 amp 06/21/18 12:00 06/28/18 08:05 Duoneb - NEB 1 amp RQID [facility] Administration Albuterol/Ipratropium 1 amp 06/22/18 03:45 06/26/18 06:09 Duoneb - NEB 1 amp Q4H PRN Administration SHORTNESS OF BREATH Alprazolam 0.5 mg 06/26/18 18:12 06/27/18 21:46 Xanax - PO 0.5 mg Q8H PRN Administration ANXIETY Amlodipine Besylate 10 mg 06/13/18 10:00 06/28/18 10:47 Norvasc - PO 10 mg DAILY [facility] Administration Aspirin 81 mg 06/13/18 10:00 06/28/18 10:48 Ecotrin - PO 81 mg DAILY [facility] Administration Atorvastatin Calcium 20 mg 06/13/18 22:00 06/27/18 21:40 Lipitor - PO 20 mg HS [facility] Administration Collagenase 1 applic 06/13/18 11:30 06/27/18 11:30 Santyl - TP 1 applic DAILY [facility] Administration Protocol Cyanocobalamin 1,000 mcg 06/13/18 10:00 06/28/18 10:48 Vitamin B12 - PO 1,000 mcg DAILY [facility] Administration Guaifenesin 10 ml 06/20/18 18:11 06/26/18 09:48 Robitussin - PO 10 ml Q8H PRN Administration COUGH Hydralazine HCl 25 mg 06/13/18 22:00 06/28/18 06:25 Apresoline - PO 25 mg TID [facility] Administration Piperacillin Sod/Tazobactam 50 mls @ 100 mls/hr 06/19/18 18:00 06/28/18 10:48 Sod 2.25 gm/ Dextrose IVPB 100 mls/hr Q8H-IV [facility] Administration Protocol Sodium Chloride 250 mls @ 3,000 mls/hr 06/26/18 14:20 Normal Saline - IV 06/27/18 14:21 PRN PRN Hypotension during Dialysis Sodium Chloride 250 mls @ 3,000 mls/hr 06/27/18 15:20 Normal Saline - IV 06/28/18 15:20 PRN PRN Hypotension during Dialysis Insulin Aspart 1 vial 06/24/18 17:45 06/28/18 06:26 Novolog Vial Sliding Scale - SQ 8 units ACHS [facility] Administration Protocol Insulin Detemir 34 units 06/28/18 10:31 Levemir Vial SQ BID@0700,2200 [facility] Isosorbide Dinitrate 5 mg 06/15/18 11:00 06/28/18 10:48 Isordil - PO 5 mg BIDISORDIL [facility] Administration Methylprednisolone Sodium Succinate 40 mg 06/25/18 19:15 06/28/18 10:47 Solu-Medrol - IVPUSH 40 mg BID [facility] Administration Vital Signs Period Temp Pulse Resp BP Sys/Barrera Pulse Ox Last 24 Hr 97.4 F-98.4 F 100-113 16-20 121-176/69-82 96 Constitutional: Yes: No Distress, Calm Cardiovascular: Yes: Regular Rate and Rhythm. no JVD Respiratory: Yes: Other +rhonchi, no wheeze Gastrointestinal: Yes: Soft Edema: trace le edema bl Neurological: Yes: Alert, Oriented not agitated no jaundice diaphoresis Assessment/Plan copd, sob - wheezes on exam, on steroid taper, nebs per pulm Elevated troponin, abnormal stress test - trop 0.47, EKG no ischemic changes, history less consistent with ACS, may be 2 /2 demand in setting of food infection - recent mibi 04/2018 showed EF 30% and small area of mild ischemia. Images reviewed , mild apical ischemia with EF 30% range. - asymptomatic. Angiogram deferred given ESRD not yet on HD and contrast allergy - V/Q scan negative for PE, heparin dc'ed - echo technically difficult, overall at least mildly reduced LV fx - continue aspirin, statin Cardiomyopathy: - EF 30% on mibi - echo confirms at least mild LV dysfx - no bb given history of worsening dyspnea and wheezing with metoprolol, no MERRILL/ ARB given CKD -Medical management of underlying possible CAD as above -continue hydralazine, imdur -vol management with HD ESRD - renal following, on HD now
--- NOTE | 2018-06-28 13:08 | PN ---
Progress Note (short form) - Note Progress Note: PULMONARY Breathing better after HD. +nonproductive cough. Vital Signs Period Temp Pulse Resp BP Sys/Barrera Pulse Ox Last 24 Hr 97.4 F-98.4 F 100-113 16-20 121-176/69-82 96-99 Gen: less tachypneic with speaking Heart: RRR Lung: distant breath sounds Abd: soft, nontender Ext: + edema CBC, BMP 06/26/18 05:30 06/27/18 05:30 Active Medications Acetaminophen (Tylenol -) 650 mg PO Q6H PRN PRN Reason: FEVER Last Admin: 06/22/18 14:11 Dose: 650 mg Albuterol/Ipratropium (Duoneb -) 1 amp NEB RQID [facility] Last Admin: 06/28/18 11:45 Dose: 1 amp Albuterol/Ipratropium (Duoneb -) 1 amp NEB Q4H PRN PRN Reason: SHORTNESS OF BREATH Last Admin: 06/26/18 06:09 Dose: 1 amp Alprazolam (Xanax -) 0.5 mg PO Q8H PRN PRN Reason: ANXIETY Last Admin: 06/27/18 21:46 Dose: 0.5 mg Amlodipine Besylate (Norvasc -) 10 mg PO DAILY [facility] Last Admin: 06/28/18 10:47 Dose: 10 mg Aspirin (Ecotrin -) 81 mg PO DAILY [facility] Last Admin: 06/28/18 10:48 Dose: 81 mg Atorvastatin Calcium (Lipitor -) 20 mg PO HS [facility] Last Admin: 06/27/18 21:40 Dose: 20 mg Collagenase (Santyl -) 1 applic TP DAILY [facility]; Protocol Last Admin: 06/27/18 11:30 Dose: 1 applic Cyanocobalamin (Vitamin B12 -) 1,000 mcg PO DAILY [facility] Last Admin: 06/28/18 10:48 Dose: 1,000 mcg Guaifenesin (Robitussin -) 10 ml PO Q8H PRN PRN Reason: COUGH Last Admin: 06/26/18 09:48 Dose: 10 ml Hydralazine HCl (Apresoline -) 25 mg PO TID [facility] Last Admin: 06/28/18 06:25 Dose: 25 mg Piperacillin Sod/Tazobactam (Sod 2.25 gm/ Dextrose) 50 mls @ 100 mls/hr IVPB Q8H-IV [facility]; Protocol Last Admin: 06/28/18 10:48 Dose: 100 mls/hr Sodium Chloride (Normal Saline -) 250 mls @ 3,000 mls/hr IV PRN PRN PRN Reason: Hypotension during Dialysis Stop: 06/27/18 14:21 Sodium Chloride (Normal Saline -) 250 mls @ 3,000 mls/hr IV PRN PRN PRN Reason: Hypotension during Dialysis Stop: 06/28/18 15:20 Insulin Aspart (Novolog Vial Sliding Scale -) 1 vial SQ ACHS [facility]; Protocol Last Admin: 06/28/18 12:33 Dose: 12 units Insulin Detemir (Levemir Vial) 34 units SQ BID@0700,2200 [facility] Isosorbide Dinitrate (Isordil -) 5 mg PO BIDISORDIL [facility] Last Admin: 06/28/18 10:48 Dose: 5 mg Methylprednisolone Sodium Succinate (Solu-Medrol -) 40 mg IVPUSH BID [facility] Last Admin: 06/28/18 10:47 Dose: 40 mg A/P Acute on Chronic Systolic Heart Failure Acute on Chronic Renal Failure Pneumonia r/o COPD Exacerbation +Troponins likely Demand Ischemia Pulmonary HTN Obstructive Sleep Apnea h/o L Nephrectomy HTN DM - HD per renal with ultrafiltration - daily weights - continue antibiotics - will decrease medrol to daily - inhaled bronchodilators - O2 to keep SpO2 >90% - glucose control while on systemic steroids - outpt PFTs - DVT prophylaxis
[2018-06-28 14:27] LABS: HEMATOCRIT 25.9 % (35.4-49); HEMOGLOBIN 8.5 GM/dL (11.7-16.9); MCH 27.2 pg (25.7-33.7); MCHC 32.9 g/dl (32.0-35.9); MEAN CELL VOLUME 82.6 fl (80-96); MEAN PLT VOLUME 8.5 fl (7.5-11.1); PLATELET COUNT 204 K/MM3 (134-434); RBC 3.13 M/mm3 (4.00-5.60); RDW 14.6 % (11.9-15.9); WHITE BLOOD COUNT 10.2 K/mm3 (4.0-10.0)
[2018-06-28 14:55] LABS: CALCIUM 8.2 mg/dL (8.5-10.1); CREATININE 6.4 mg/dL (0.55-1.3); POTASSIUM 5.1 mmol/L (3.5-5.1)
[2018-06-28] MEDS: COLLAGENASE CLOSTRIDIUM HIST. 30 GRAMS TUBE TP SCH (18:18)
--- NOTE | 2018-06-28 19:23 | PN ---
Progress Note, Physician Chief Complaint: NO COMPLAINTS DENIES CHEST PAIN/ DYSPNEA AFEBRILE SPUTUM PCR + METAPNEUMOVIRUS - Current Medication List Current Medications: Active Medications Acetaminophen (Tylenol -) 650 mg PO Q6H PRN PRN Reason: FEVER Last Admin: 06/22/18 14:11 Dose: 650 mg Albuterol/Ipratropium (Duoneb -) 1 amp NEB RQID [facility] Last Admin: 06/28/18 15:25 Dose: Not Given Albuterol/Ipratropium (Duoneb -) 1 amp NEB Q4H PRN PRN Reason: SHORTNESS OF BREATH Last Admin: 06/26/18 06:09 Dose: 1 amp Alprazolam (Xanax -) 0.5 mg PO Q8H PRN PRN Reason: ANXIETY Last Admin: 06/27/18 21:46 Dose: 0.5 mg Amlodipine Besylate (Norvasc -) 10 mg PO DAILY [facility] Last Admin: 06/28/18 10:47 Dose: 10 mg Aspirin (Ecotrin -) 81 mg PO DAILY [facility] Last Admin: 06/28/18 10:48 Dose: 81 mg Atorvastatin Calcium (Lipitor -) 20 mg PO HS [facility] Last Admin: 06/27/18 21:40 Dose: 20 mg Collagenase (Santyl -) 1 applic TP DAILY [facility]; Protocol Last Admin: 06/28/18 18:18 Dose: 1 applic Cyanocobalamin (Vitamin B12 -) 1,000 mcg PO DAILY [facility] Last Admin: 06/28/18 10:48 Dose: 1,000 mcg Guaifenesin (Robitussin -) 10 ml PO Q8H PRN PRN Reason: COUGH Last Admin: 06/26/18 09:48 Dose: 10 ml Hydralazine HCl (Apresoline -) 25 mg PO TID [facility] Last Admin: 06/28/18 14:05 Dose: Not Given Piperacillin Sod/Tazobactam (Sod 2.25 gm/ Dextrose) 50 mls @ 100 mls/hr IVPB Q8H-IV [facility]; Protocol Last Admin: 06/28/18 18:18 Dose: 100 mls/hr Sodium Chloride (Normal Saline -) 250 mls @ 3,000 mls/hr IV PRN PRN PRN Reason: Hypotension during Dialysis Stop: 06/27/18 14:21 Sodium Chloride (Normal Saline -) 250 mls @ 3,000 mls/hr IV PRN PRN PRN Reason: Hypotension during Dialysis Stop: 06/28/18 15:20 Insulin Aspart (Novolog Vial Sliding Scale -) 1 vial SQ ACHS [facility]; Protocol Last Admin: 06/28/18 18:18 Dose: 12 units Insulin Detemir (Levemir Vial) 34 units SQ BID@0700,2200 [facility] Isosorbide Dinitrate (Isordil -) 5 mg PO BIDISORDIL [facility] Last Admin: 06/28/18 10:48 Dose: 5 mg Methylprednisolone Sodium Succinate (Solu-Medrol -) 40 mg IVPUSH DAILY [facility] - Objective Vital Signs: Vital Signs Temperature 97.9 F 06/28/18 14:05 Pulse Rate 111 H 06/28/18 17:20 Respiratory Rate 18 06/28/18 17:20 Blood Pressure 181/80 H 06/28/18 17:20 O2 Sat by Pulse Oximetry (%) 99 06/28/18 09:00 Constitutional: Yes: No Distress Cardiovascular: Yes: Regular Rate and Rhythm, S1, S2 Respiratory: Yes: Rhonchi Gastrointestinal: Yes: Normal Bowel Sounds, Soft Labs: CBC, BMP 06/28/18 14:00 06/28/18 14:00 INR, PTT INR 1.14 (0.83-1.09) H 06/12/18 23:30 Assessment/Plan PNEUMONIA ESRD + SPUTUM PCR METAPNEUMOVIRUS CONTINUE ZOSYN DROPLET PRECAUTIONS
[2018-06-28] MEDS: ATORVASTATIN CA 20 MG TABLET (FP) PO SCH (22:19)
[2018-06-29] MEDS ORDERED: PIPERACILLIN/TAZOBACTAM 2.25 GM VIAL IVPB ONE ×3 (00:42→17:47)
[2018-06-29] MEDS ORDERED: DEXTROSE 5%-WATER - 50 ML IVPB ONE ×3 (00:42→17:47)
[2018-06-29] MEDS: PIPERACILLIN/TAZOB 2.25 GM 2.25 GM in DEXTROSE 5%-WATER - 50 ML IVPB SCH ×3 (01:18→18:05)
[2018-06-29] MEDS: hydrALAZINE HCL 25 MG TABLET (FP) PO SCH ×3 (06:19→21:14)
[2018-06-29] MEDS: INSULIN SLIDING SCALE (NOVOLOG) 1 VIAL SQ SCH ×4 (06:19→21:21)
[2018-06-29] MEDS: INSULIN (LEVEMIR) 100 UNITS/ML UNITS SQ SCH ×2 (06:20→21:20)
[2018-06-29] MEDS: ALBUTEROL SO4 2.5/IPRATROPIUM 0.5 INH SOL 3 ML VIAL.NEB. NEB SCH ×4 (07:55→21:10)
--- NOTE | 2018-06-29 09:32 | PN ---
Progress Note (short form) - Note Progress Note: RENAL asleep, arousable comfortable had hd via a shiley yesterday Last Vital Signs Temp Pulse Resp BP Pulse Ox 98.2 F 102 H 20 146/83 99 06/29/18 06:00 06/29/18 06:00 06/29/18 02:00 06/29/18 06:00 06/28/18 20:50 lungs clear cvs s1s2 rr abd soft ext +edema neuro a+ox3 CBC, BMP 06/28/18 14:00 06/28/18 22:45 Current Medications Generic Name Dose Route Start Last Admin Trade Name Freq PRN Reason Stop Dose Admin Acetaminophen 650 mg 06/19/18 20:47 06/22/18 14:11 Tylenol - PO 650 mg Q6H PRN Administration FEVER Albuterol/Ipratropium 1 amp 06/21/18 12:00 06/29/18 07:55 Duoneb - NEB 1 amp RQID [facility] Administration Albuterol/Ipratropium 1 amp 06/22/18 03:45 06/26/18 06:09 Duoneb - NEB 1 amp Q4H PRN Administration SHORTNESS OF BREATH Alprazolam 0.5 mg 06/26/18 18:12 06/27/18 21:46 Xanax - PO 0.5 mg Q8H PRN Administration ANXIETY Amlodipine Besylate 10 mg 06/13/18 10:00 06/28/18 10:47 Norvasc - PO 10 mg DAILY [facility] Administration Aspirin 81 mg 06/13/18 10:00 06/28/18 10:48 Ecotrin - PO 81 mg DAILY [facility] Administration Atorvastatin Calcium 20 mg 06/13/18 22:00 06/28/18 22:19 Lipitor - PO 20 mg HS [facility] Administration Collagenase 1 applic 06/13/18 11:30 06/28/18 18:18 Santyl - TP 1 applic DAILY [facility] Administration Protocol Cyanocobalamin 1,000 mcg 06/13/18 10:00 06/28/18 10:48 Vitamin B12 - PO 1,000 mcg DAILY [facility] Administration Guaifenesin 10 ml 06/20/18 18:11 06/26/18 09:48 Robitussin - PO 10 ml Q8H PRN Administration COUGH Hydralazine HCl 25 mg 06/13/18 22:00 06/29/18 06:19 Apresoline - PO 25 mg TID [facility] Administration Piperacillin Sod/Tazobactam 50 mls @ 100 mls/hr 06/19/18 18:00 06/29/18 01:18 Sod 2.25 gm/ Dextrose IVPB 100 mls/hr Q8H-IV [facility] Administration Protocol Sodium Chloride 250 mls @ 3,000 mls/hr 06/27/18 15:20 Normal Saline - IV 06/28/18 15:20 PRN PRN Hypotension during Dialysis Insulin Aspart 1 vial 06/24/18 17:45 06/29/18 06:19 Novolog Vial Sliding Scale - SQ 8 units ACHS [facility] Administration Protocol Insulin Detemir 34 units 06/28/18 10:31 06/29/18 06:20 Levemir Vial SQ 34 units BID@0700,2200 [facility] Administration Isosorbide Dinitrate 5 mg 06/15/18 11:00 06/28/18 22:20 Isordil - PO 5 mg BIDISORDIL [facility] Administration Methylprednisolone Sodium Succinate 40 mg 06/29/18 10:00 Solu-Medrol - IVPUSH DAILY [facility] Impression 1. CKD 2. elevated cardiac enzymes 3. DM 4. chest pain 5. hyperlipidemia 6. HTN 7. hx of Wilms tumor, s/p left nephrectomy 8. hyperkalemia 9. ESRD 10 hyperglycemia may improve with tapering prednisone 11 metapneumovirus by pcr Plan - HD today - renal diet - monitor potassium - fistula evaluation by vascular - steroids with taper as tolerated -insulin to be adjusted [facility]
--- NOTE | 2018-06-29 10:51 | PN ---
Progress Note, Physician Chief Complaint: ESRD Diabetes mellitus Fluid overload History of Present Illness: NAD Seen by nephrology BG still running high Denies SOB at rest or ambulation - Current Medication List Current Medications: Active Medications Acetaminophen (Tylenol -) 650 mg PO Q6H PRN PRN Reason: FEVER Last Admin: 06/22/18 14:11 Dose: 650 mg Albuterol/Ipratropium (Duoneb -) 1 amp NEB RQID [facility] Last Admin: 06/29/18 07:55 Dose: 1 amp Albuterol/Ipratropium (Duoneb -) 1 amp NEB Q4H PRN PRN Reason: SHORTNESS OF BREATH Last Admin: 06/26/18 06:09 Dose: 1 amp Alprazolam (Xanax -) 0.5 mg PO Q8H PRN PRN Reason: ANXIETY Last Admin: 06/27/18 21:46 Dose: 0.5 mg Amlodipine Besylate (Norvasc -) 10 mg PO DAILY [facility] Last Admin: 06/28/18 10:47 Dose: 10 mg Aspirin (Ecotrin -) 81 mg PO DAILY [facility] Last Admin: 06/28/18 10:48 Dose: 81 mg Atorvastatin Calcium (Lipitor -) 20 mg PO HS [facility] Last Admin: 06/28/18 22:19 Dose: 20 mg Collagenase (Santyl -) 1 applic TP DAILY [facility]; Protocol Last Admin: 06/28/18 18:18 Dose: 1 applic Cyanocobalamin (Vitamin B12 -) 1,000 mcg PO DAILY [facility] Last Admin: 06/28/18 10:48 Dose: 1,000 mcg Guaifenesin (Robitussin -) 10 ml PO Q8H PRN PRN Reason: COUGH Last Admin: 06/26/18 09:48 Dose: 10 ml Hydralazine HCl (Apresoline -) 25 mg PO TID [facility] Last Admin: 06/29/18 06:19 Dose: 25 mg Piperacillin Sod/Tazobactam (Sod 2.25 gm/ Dextrose) 50 mls @ 100 mls/hr IVPB Q8H-IV [facility]; Protocol Last Admin: 06/29/18 01:18 Dose: 100 mls/hr Sodium Chloride (Normal Saline -) 250 mls @ 3,000 mls/hr IV PRN PRN PRN Reason: Hypotension during Dialysis Stop: 06/28/18 15:20 Insulin Aspart (Novolog Vial Sliding Scale -) 1 vial SQ [facility]; Protocol Last Admin: 06/29/18 06:19 Dose: 8 units Insulin Detemir (Levemir Vial) 40 units SQ BID@0700,2200 [facility] Isosorbide Dinitrate (Isordil -) 5 mg PO BIDISORDIL [facility] Last Admin: 06/28/18 22:20 Dose: 5 mg Methylprednisolone Sodium Succinate (Solu-Medrol -) 40 mg IVPUSH DAILY [facility] - Objective Vital Signs: Vital Signs Temperature 98.2 F 06/29/18 06:00 Pulse Rate 102 H 06/29/18 06:00 Respiratory Rate 20 06/29/18 02:00 Blood Pressure 146/83 06/29/18 06:00 O2 Sat by Pulse Oximetry (%) 99 06/28/18 20:50 Constitutional: Yes: Well Nourished, No Distress, Calm Cardiovascular: Yes: Regular Rate and Rhythm Respiratory: Yes: Regular, On Nasal O2, Rhonchi (diffuse) Gastrointestinal: Yes: WNL Musculoskeletal: Yes: WNL Extremities: Yes: WNL Edema: No Peripheral Pulses WNL: Yes Neurological: Yes: Alert, Oriented Psychiatric: Yes: Alert, Oriented Labs: CBC, BMP 06/28/18 14:00 06/28/18 22:45 INR, PTT INR 1.14 (0.83-1.09) H 06/12/18 23:30 Problem List - Problems (1) ESRD (end stage renal disease) Assessment/Plan: -nephrology on board -HD as per nephrology -AVF not mature, has Permacath Code(s): N18.6 - END STAGE RENAL DISEASE (2) CHF (congestive heart failure) Assessment/Plan: -HD Code(s): I50.9 - HEART FAILURE, UNSPECIFIED (3) Cardiomyopathy Assessment/Plan: -Cardiology on board -Tele monitor -EF-30% Code(s): I42.9 - CARDIOMYOPATHY, UNSPECIFIED (4) Dyspnea Assessment/Plan: -Nasal O2 prn -Bronchodilators -IV medrol -Pulmonary on board Code(s): R06.00 - DYSPNEA, UNSPECIFIED (5) Diabetes Assessment/Plan: A1c at 6.4 -BGM AC HS -Diabetic/renal diet -BGM running high 2/2 to medrol -Increase levemir to 40 U BID -Novolog sliding scale Code(s): E11.9 - TYPE 2 DIABETES MELLITUS WITHOUT COMPLICATIONS Qualifiers: Diabetes mellitus type: type 1 Diabetes mellitus complication status: with skin complications Diabetes mellitus complication detail: with foot ulcer Qualified Code(s): E10.621 - Type 1 diabetes mellitus with foot ulcer (6) Bronchopneumonia due to human metapneumovirus (hMPV) Assessment/Plan: -Seen by ID -Droplet precautions -treat symptomatically Code(s): J12.3 - HUMAN METAPNEUMOVIRUS PNEUMONIA Assessment/Plan see problem list
[2018-06-29] MEDS ORDERED: PANTOPRAZOLE SODIUM 40 MG in SODIUM CHLORIDE 100 ML IVPB SCH (11:00)
[2018-06-29 11:47] LABS: BASO % 0.2 % (0-2.0); EOS % 0.1 % (0-4.5); HEMATOCRIT 27.9 % (35.4-49); LYMPH % 4.9 % (8-40); MCH 26.5 pg (25.7-33.7); MCHC 32.3 g/dl (32.0-35.9); MEAN CELL VOLUME 81.9 fl (80-96); MEAN PLT VOLUME 8.6 fl (7.5-11.1); MONO % 9.5 % (3.8-10.2); NEUT % 85.3 % (42.8-82.8); PLATELET COUNT 202 K/MM3 (134-434); RDW 13.9 % (11.9-15.9)
--- NOTE | 2018-06-29 11:58 | PN ---
Progress Note (short form) - Note Progress Note: no cp, palps. dizzy. sob better after HD. TELE: SR Current Medications Generic Name Dose Route Start Last Admin Trade Name Freq PRN Reason Stop Dose Admin Acetaminophen 650 mg 06/19/18 20:47 06/22/18 14:11 Tylenol - PO 650 mg Q6H PRN Administration FEVER Albuterol/Ipratropium 1 amp 06/21/18 12:00 06/29/18 11:35 Duoneb - NEB 1 amp RQID [facility] Administration Albuterol/Ipratropium 1 amp 06/22/18 03:45 06/26/18 06:09 Duoneb - NEB 1 amp Q4H PRN Administration SHORTNESS OF BREATH Alprazolam 0.5 mg 06/26/18 18:12 06/27/18 21:46 Xanax - PO 0.5 mg Q8H PRN Administration ANXIETY Amlodipine Besylate 10 mg 06/13/18 10:00 06/28/18 10:47 Norvasc - PO 10 mg DAILY [facility] Administration Aspirin 81 mg 06/13/18 10:00 06/28/18 10:48 Ecotrin - PO 81 mg DAILY [facility] Administration Atorvastatin Calcium 20 mg 06/13/18 22:00 06/28/18 22:19 Lipitor - PO 20 mg HS [facility] Administration Collagenase 1 applic 06/13/18 11:30 06/28/18 18:18 Santyl - TP 1 applic DAILY [facility] Administration Protocol Cyanocobalamin 1,000 mcg 06/13/18 10:00 06/28/18 10:48 Vitamin B12 - PO 1,000 mcg DAILY [facility] Administration Guaifenesin 10 ml 06/20/18 18:11 06/26/18 09:48 Robitussin - PO 10 ml Q8H PRN Administration COUGH Hydralazine HCl 25 mg 06/13/18 22:00 06/29/18 06:19 Apresoline - PO 25 mg TID [facility] Administration Piperacillin Sod/Tazobactam 50 mls @ 100 mls/hr 06/19/18 18:00 06/29/18 01:18 Sod 2.25 gm/ Dextrose IVPB 100 mls/hr Q8H-IV [facility] Administration Protocol Sodium Chloride 250 mls @ 3,000 mls/hr 06/27/18 15:20 Normal Saline - IV 06/28/18 15:20 PRN PRN Hypotension during Dialysis Insulin Aspart 1 vial 06/24/18 17:45 06/29/18 06:19 Novolog Vial Sliding Scale - SQ 8 units ACHS [facility] Administration Protocol Insulin Detemir 40 units 06/29/18 10:47 Levemir Vial SQ BID@0700,2200 [facility] Isosorbide Dinitrate 5 mg 06/15/18 11:00 06/28/18 22:20 Isordil - PO 5 mg BIDISORDIL [facility] Administration Methylprednisolone Sodium Succinate 40 mg 06/29/18 10:00 Solu-Medrol - IVPUSH DAILY [facility] Pantoprazole Sodium 40 mg 06/29/18 11:15 Protonix Iv IVPB DAILY [facility] Vital Signs Period Temp Pulse Resp BP Sys/Barrera Pulse Ox Last 24 Hr 97.8 F-98.2 F 96-118 18-22 112-181/67-91 99 Constitutional: Yes: No Distress, Calm Cardiovascular: Yes: Regular Rate and Rhythm. no JVD Respiratory: Yes: Other +rhonchi, no wheeze Gastrointestinal: Yes: Soft Edema: trace le edema bl Neurological: Yes: Alert, Oriented not agitated no jaundice diaphoresis Assessment/Plan copd, sob - wheezes on exam, on steroid taper, nebs per pulm Elevated troponin, abnormal stress test - trop 0.47, EKG no ischemic changes, history less consistent with ACS, may be 2 /2 demand in setting of food infection - recent mibi 04/2018 showed EF 30% and small area of mild ischemia. Images reviewed , mild apical ischemia with EF 30% range. - asymptomatic. Angiogram deferred given ESRD not yet on HD and contrast allergy - V/Q scan negative for PE, heparin dc'ed - echo technically difficult, overall at least mildly reduced LV fx - continue aspirin, statin Cardiomyopathy: - EF 30% on mibi - echo confirms at least mild LV dysfx - no bb given history of worsening dyspnea and wheezing with metoprolol, no MERRILL/ ARB given CKD -Medical management of underlying possible CAD as above -continue hydralazine, imdur -vol management with HD ESRD - renal following, on HD now dc tele
--- NOTE | 2018-06-29 12:08 | PN ---
Progress Note (short form) - Note Progress Note: PULMONARY Dialyzed yesterday with removal of 2kg, reports improvement in breathing. + nonproductive cough. Vital Signs Period Temp Pulse Resp BP Sys/Barrera Pulse Ox Last 24 Hr 97.8 F-98.2 F 96-118 18-22 112-181/67-91 99 Gen: less tachypneic with speaking Heart: RRR Lung: distant breath sounds Abd: soft, nontender Ext: + edema CBC, BMP 06/29/18 11:30 Active Medications Acetaminophen (Tylenol -) 650 mg PO Q6H PRN PRN Reason: FEVER Last Admin: 06/22/18 14:11 Dose: 650 mg Albuterol/Ipratropium (Duoneb -) 1 amp NEB RQID [facility] Last Admin: 06/29/18 11:35 Dose: 1 amp Albuterol/Ipratropium (Duoneb -) 1 amp NEB Q4H PRN PRN Reason: SHORTNESS OF BREATH Last Admin: 06/26/18 06:09 Dose: 1 amp Alprazolam (Xanax -) 0.5 mg PO Q8H PRN PRN Reason: ANXIETY Last Admin: 06/27/18 21:46 Dose: 0.5 mg Amlodipine Besylate (Norvasc -) 10 mg PO DAILY [facility] Last Admin: 06/28/18 10:47 Dose: 10 mg Aspirin (Ecotrin -) 81 mg PO DAILY [facility] Last Admin: 06/28/18 10:48 Dose: 81 mg Atorvastatin Calcium (Lipitor -) 20 mg PO HS [facility] Last Admin: 06/28/18 22:19 Dose: 20 mg Collagenase (Santyl -) 1 applic TP DAILY [facility]; Protocol Last Admin: 06/28/18 18:18 Dose: 1 applic Cyanocobalamin (Vitamin B12 -) 1,000 mcg PO DAILY [facility] Last Admin: 06/28/18 10:48 Dose: 1,000 mcg Guaifenesin (Robitussin -) 10 ml PO Q8H PRN PRN Reason: COUGH Last Admin: 06/26/18 09:48 Dose: 10 ml Hydralazine HCl (Apresoline -) 25 mg PO TID [facility] Last Admin: 06/29/18 06:19 Dose: 25 mg Piperacillin Sod/Tazobactam (Sod 2.25 gm/ Dextrose) 50 mls @ 100 mls/hr IVPB Q8H-IV [facility]; Protocol Last Admin: 06/29/18 01:18 Dose: 100 mls/hr Sodium Chloride (Normal Saline -) 250 mls @ 3,000 mls/hr IV PRN PRN PRN Reason: Hypotension during Dialysis Stop: 06/28/18 15:20 Insulin Aspart (Novolog Vial Sliding Scale -) 1 vial SQ ACHS [facility]; Protocol Last Admin: 06/29/18 06:19 Dose: 8 units Insulin Detemir (Levemir Vial) 40 units SQ BID@0700,2200 [facility] Isosorbide Dinitrate (Isordil -) 5 mg PO BIDISORDIL [facility] Last Admin: 06/28/18 22:20 Dose: 5 mg Methylprednisolone Sodium Succinate (Solu-Medrol -) 40 mg IVPUSH DAILY [facility] Pantoprazole Sodium (Protonix Iv) 40 mg IVPB DAILY [facility] A/P Acute on Chronic Systolic Heart Failure Acute on Chronic Renal Failure Pneumonia r/o COPD Exacerbation +Troponins likely Demand Ischemia Pulmonary HTN Obstructive Sleep Apnea h/o L Nephrectomy HTN DM - HD per renal with ultrafiltration - daily weights - continue antibiotics - medrol taper - inhaled bronchodilators - O2 to keep SpO2 >90% - glucose control while on systemic steroids - outpt PFTs - DVT prophylaxis
[2018-06-29 12:23] LABS: ALBUMIN 2.9 g/dl (3.4-5.0); BILIRUBIN,TOTAL 0.4 mg/dL (0.2-1); CALCIUM 8.6 mg/dL (8.5-10.1); CREATININE 5.3 mg/dL (0.55-1.3); POTASSIUM 4.7 mmol/L (3.5-5.1); TOT PROT 6.3 g/dl (6.4-8.2)
[2018-06-29] MEDS: PANTOPRAZOLE SODIUM 40 MG VIAL IVPB SCH (12:50)
[2018-06-29] MEDS: methylPREDNISolone NA SUCC 40 MG/1 ML VIAL IVPUSH SCH (12:51)
[2018-06-29] MEDS: ASPIRIN COATED 81 MG TABLET.EC PO SCH (12:52)
[2018-06-29] MEDS: ISOSORBIDE DINITRATE 5 MG TABLET PO SCH ×2 (12:52→18:02)
[2018-06-29] MEDS: amLODIPine BESYLATE 10 MG TABLET (FP) PO SCH (12:52)
[2018-06-29] MEDS: CYANOCOBALAMIN 1,000 MCG TABLET (FP) PO SCH (12:52)
[2018-06-29 15:26] LABS: ANISOCYTOSIS 2+; MACROCYTOSIS 0; OVALOCYTE 1+; PLATELET ESTIMATE NORMAL; TARGET CELLS 1+
[2018-06-29] MEDS: COLLAGENASE CLOSTRIDIUM HIST. 30 GRAMS TUBE TP SCH (18:00)
[2018-06-29] MEDS: ATORVASTATIN CA 20 MG TABLET (FP) PO SCH (21:14)
[2018-06-30] MEDS ORDERED: DEXTROSE 5%-WATER - 50 ML IVPB ONE ×2 (01:57→11:18)
[2018-06-30] MEDS ORDERED: PIPERACILLIN/TAZOBACTAM 2.25 GM VIAL IVPB ONE ×2 (01:57→11:18)
[2018-06-30] MEDS: PIPERACILLIN/TAZOB 2.25 GM 2.25 GM in DEXTROSE 5%-WATER - 50 ML IVPB SCH ×2 (01:59→11:30)
[2018-06-30] MEDS: hydrALAZINE HCL 25 MG TABLET (FP) PO SCH ×3 (06:16→22:15)
[2018-06-30] MEDS: INSULIN (LEVEMIR) 100 UNITS/ML UNITS SQ SCH ×2 (06:16→22:15)
[2018-06-30] MEDS: INSULIN SLIDING SCALE (NOVOLOG) 1 VIAL SQ SCH ×4 (06:17→22:15)
[2018-06-30 07:14] LABS: BASO % 0.2 % (0-2.0); EOS % 0.1 % (0-4.5); HEMATOCRIT 25.8 % (35.4-49); HEMOGLOBIN 8.7 GM/dL (11.7-16.9); LYMPH % 4.4 % (8-40); MCH 27.5 pg (25.7-33.7); MCHC 33.9 g/dl (32.0-35.9); MEAN CELL VOLUME 81.2 fl (80-96); MEAN PLT VOLUME 8.6 fl (7.5-11.1); MONO % 7.1 % (3.8-10.2); NEUT % 88.2 % (42.8-82.8); PLATELET COUNT 198 K/MM3 (134-434); RBC 3.17 M/mm3 (4.00-5.60); RDW 13.9 % (11.9-15.9); WHITE BLOOD COUNT 10.8 K/mm3 (4.0-10.0)
[2018-06-30 07:29] LABS: ALBUMIN 2.8 g/dl (3.4-5.0); BILIRUBIN,TOTAL 0.5 mg/dL (0.2-1); CALCIUM 8.5 mg/dL (8.5-10.1); POTASSIUM 4.6 mmol/L (3.5-5.1)
[2018-06-30] MEDS: ALBUTEROL SO4 2.5/IPRATROPIUM 0.5 INH SOL 3 ML VIAL.NEB. NEB SCH ×4 (07:50→20:50)
--- NOTE | 2018-06-30 09:58 | PN ---
Progress Note, Physician Chief Complaint: no chest pain or SOB TELE:sinus tach - Current Medication List Current Medications: Active Medications Acetaminophen (Tylenol -) 650 mg PO Q6H PRN PRN Reason: FEVER Last Admin: 06/22/18 14:11 Dose: 650 mg Albuterol/Ipratropium (Duoneb -) 1 amp NEB RQID [facility] Last Admin: 06/30/18 07:50 Dose: 1 amp Albuterol/Ipratropium (Duoneb -) 1 amp NEB Q4H PRN PRN Reason: SHORTNESS OF BREATH Last Admin: 06/26/18 06:09 Dose: 1 amp Alprazolam (Xanax -) 0.5 mg PO Q8H PRN PRN Reason: ANXIETY Last Admin: 06/27/18 21:46 Dose: 0.5 mg Amlodipine Besylate (Norvasc -) 10 mg PO DAILY [facility] Last Admin: 06/29/18 12:52 Dose: 10 mg Aspirin (Ecotrin -) 81 mg PO DAILY [facility] Last Admin: 06/29/18 12:52 Dose: 81 mg Atorvastatin Calcium (Lipitor -) 20 mg PO HS [facility] Last Admin: 06/29/18 21:14 Dose: 20 mg Collagenase (Santyl -) 1 applic TP DAILY [facility]; Protocol Last Admin: 06/29/18 18:00 Dose: 1 applic Cyanocobalamin (Vitamin B12 -) 1,000 mcg PO DAILY [facility] Last Admin: 06/29/18 12:52 Dose: 1,000 mcg Guaifenesin (Robitussin -) 10 ml PO Q8H PRN PRN Reason: COUGH Last Admin: 06/26/18 09:48 Dose: 10 ml Hydralazine HCl (Apresoline -) 25 mg PO TID [facility] Last Admin: 06/30/18 06:16 Dose: 25 mg Piperacillin Sod/Tazobactam (Sod 2.25 gm/ Dextrose) 50 mls @ 100 mls/hr IVPB Q8H-IV [facility]; Protocol Last Admin: 06/30/18 01:59 Dose: 100 mls/hr Insulin Aspart (Novolog Vial Sliding Scale -) 1 vial SQ ACHS [facility]; Protocol Last Admin: 06/30/18 06:17 Dose: 5 units Insulin Detemir (Levemir Vial) 40 units SQ BID@0700,2200 [facility] Last Admin: 06/30/18 06:16 Dose: 40 units Isosorbide Dinitrate (Isordil -) 5 mg PO BIDISORDIL [facility] Last Admin: 06/29/18 18:02 Dose: 5 mg Methylprednisolone Sodium Succinate (Solu-Medrol -) 40 mg IVPUSH DAILY [facility] Last Admin: 06/29/18 12:51 Dose: 40 mg Pantoprazole Sodium (Protonix Iv) 40 mg IVPB DAILY [facility] Last Admin: 06/29/18 12:50 Dose: 40 mg - Objective Vital Signs: Vital Signs Temperature 98 F 06/30/18 06:00 Pulse Rate 102 H 06/30/18 06:00 Respiratory Rate 20 06/30/18 06:00 Blood Pressure 155/72 06/30/18 06:00 O2 Sat by Pulse Oximetry (%) 94 L 06/29/18 20:29 Constitutional: Yes: Calm Cardiovascular: Yes: Regular Rate and Rhythm Respiratory: Yes: CTA Bilaterally Gastrointestinal: Yes: Soft Edema: Yes Edema: LLE: 2+, RLE: 2+ Neurological: Yes: Alert, Oriented ...Motor Strength: WNL Labs: CBC, BMP 06/30/18 05:30 06/30/18 05:30 INR, PTT INR 1.14 (0.83-1.09) H 06/12/18 23:30 Laboratory Tests 06/30/18 06/30/18 05:30 05:30 WBC 10.8 H Hgb 8.7 L Plt Count 198 Sodium 134 L Potassium 4.6 BUN 96 H Creatinine 6.0 H Est GFR (CKD-EPI)AfAm 10.59 Est GFR (CKD-EPI)NonAf 9.14 Random Glucose 199 H - ....Imaging EKG: Image Reviewed Assessment/Plan Assessment/Plan 1. Copd, sob: - wheezes on exam, on steroid taper, nebs per pulm 2. Elevated troponin, abnormal stress test: - trop 0.47, EKG no ischemic changes, history less consistent with ACS, may be 2 /2 demand in setting of food infection - recent mibi 04/2018 showed EF 30% and small area of mild ischemia. Images reviewed , mild apical ischemia with EF 30% range. - asymptomatic. Angiogram deferred given ESRD not yet on HD and contrast allergy - V/Q scan negative for PE, heparin dc'ed - echo technically difficult, overall at least mildly reduced LV fx - continue aspirin, statin 3. Cardiomyopathy: - EF 30% on mibi - echo confirms at least mild LV dysfx - no bb given history of worsening dyspnea and wheezing with metoprolol, no MERRILL/ ARB given CKD -Medical management of underlying possible CAD as above -continue hydralazine, imdur -vol management with HD 4. ESRD: - renal following, on HD now dc tele
[2018-06-30 11:21] LABS: ANISOCYTOSIS 2+; MACROCYTOSIS 0; PLATELET ESTIMATE NORMAL
[2018-06-30] MEDS: amLODIPine BESYLATE 10 MG TABLET (FP) PO SCH (11:29)
[2018-06-30] MEDS: CYANOCOBALAMIN 1,000 MCG TABLET (FP) PO SCH (11:29)
[2018-06-30] MEDS: ISOSORBIDE DINITRATE 5 MG TABLET PO SCH ×2 (11:29→17:49)
[2018-06-30] MEDS: ASPIRIN COATED 81 MG TABLET.EC PO SCH (11:29)
--- NOTE | 2018-06-30 12:36 | PN ---
Progress Note (short form) - Note Progress Note: Resting in NAD. No acute events overnight. No CP. SOB improving. Some nonproductive cough. Intake & Output 06/27/18 06/28/18 06/29/18 06/30/18 23:59 23:59 23:59 23:59 Intake Total 350 700 450 340 Output Total 1000 800 650 Balance -650 -100 450 -310 Weight 233 lb 6.4 oz 231 lb 3.2 oz 229 lb 230 lb Last Vital Signs Temp Pulse Resp BP Pulse Ox 98 F 102 H 20 155/72 94 L 06/30/18 06:00 06/30/18 06:00 06/30/18 06:00 06/30/18 06:00 06/29/18 20:29 Active Medications Acetaminophen (Tylenol -) 650 mg PO Q6H PRN PRN Reason: FEVER Last Admin: 06/22/18 14:11 Dose: 650 mg Albuterol/Ipratropium (Duoneb -) 1 amp NEB RQID [facility] Last Admin: 06/30/18 11:30 Dose: 1 amp Albuterol/Ipratropium (Duoneb -) 1 amp NEB Q4H PRN PRN Reason: SHORTNESS OF BREATH Last Admin: 06/26/18 06:09 Dose: 1 amp Alprazolam (Xanax -) 0.5 mg PO Q8H PRN PRN Reason: ANXIETY Last Admin: 06/27/18 21:46 Dose: 0.5 mg Amlodipine Besylate (Norvasc -) 10 mg PO DAILY [facility] Last Admin: 06/30/18 11:29 Dose: 10 mg Aspirin (Ecotrin -) 81 mg PO DAILY [facility] Last Admin: 06/30/18 11:29 Dose: 81 mg Atorvastatin Calcium (Lipitor -) 20 mg PO HS [facility] Last Admin: 06/29/18 21:14 Dose: 20 mg Collagenase (Santyl -) 1 applic TP DAILY [facility]; Protocol Last Admin: 06/29/18 18:00 Dose: 1 applic Cyanocobalamin (Vitamin B12 -) 1,000 mcg PO DAILY [facility] Last Admin: 06/30/18 11:29 Dose: 1,000 mcg Guaifenesin (Robitussin -) 10 ml PO Q8H PRN PRN Reason: COUGH Last Admin: 06/26/18 09:48 Dose: 10 ml Hydralazine HCl (Apresoline -) 25 mg PO TID [facility] Last Admin: 06/30/18 06:16 Dose: 25 mg Piperacillin Sod/Tazobactam (Sod 2.25 gm/ Dextrose) 50 mls @ 100 mls/hr IVPB Q8H-IV [facility]; Protocol Last Admin: 06/30/18 11:30 Dose: 100 mls/hr Insulin Aspart (Novolog Vial Sliding Scale -) 1 vial SQ ACHS [facility]; Protocol Last Admin: 06/30/18 06:17 Dose: 5 units Insulin Detemir (Levemir Vial) 40 units SQ BID@0700,2200 [facility] Last Admin: 06/30/18 06:16 Dose: 40 units Isosorbide Dinitrate (Isordil -) 5 mg PO BIDISORDIL [facility] Last Admin: 06/30/18 11:29 Dose: 5 mg Methylprednisolone Sodium Succinate (Solu-Medrol -) 40 mg IVPUSH DAILY [facility] Last Admin: 06/29/18 12:51 Dose: 40 mg Pantoprazole Sodium (Protonix Iv) 40 mg IVPB DAILY [facility] Last Admin: 06/29/18 12:50 Dose: 40 mg Gen: less tachypneic with speaking Heart: RRR Lung: distant breath sounds Abd: soft, nontender Ext: + edema Laboratory Results - last 24 hr 06/29/18 06/29/18 06/29/18 11:30 13:13 17:59 WBC RBC Hgb Hct MCV MCH MCHC RDW Plt Count MPV Absolute Neuts (auto) Neutrophils % Neutrophils % (Manual) 92.9 H Band Neutrophils % 0.0 Lymphocytes % Lymphocytes % (Manual) 1.0 L Monocytes % Monocytes % (Manual) 6 Eosinophils % Eosinophils % (Manual) 0.0 Basophils % Basophils % (Manual) 0.0 Myelocytes % (Man) 0 Promyelocytes % (Man) 0 Blast Cells % (Manual) 0 Nucleated RBC % Metamyelocytes 0 Hypochromia 0 Platelet Estimate Normal Platelet Comment Present Polychromasia 0 Poikilocytosis 1+ Anisocytosis 2+ Microcytosis 2+ Macrocytosis 0 Spherocytes 1+ Target Cells 1+ Ovalocytes 1+ Robert Cells 1+ Fragmented RBCs 1+ Sodium Potassium Chloride Carbon Dioxide Anion Gap BUN Creatinine Est GFR (CKD-EPI)AfAm Est GFR (CKD-EPI)NonAf POC Glucometer 274 288 Random Glucose Calcium Total Bilirubin AST ALT Alkaline Phosphatase Total Protein Albumin 06/29/18 06/30/18 06/30/18 21:18 05:30 05:30 WBC 10.8 H RBC 3.17 L Hgb 8.7 L Hct 25.8 L MCV 81.2 MCH 27.5 MCHC 33.9 RDW 13.9 Plt Count 198 MPV 8.6 Absolute Neuts (auto) 9.5 H Neutrophils % 88.2 H Neutrophils % (Manual) 87.0 H Band Neutrophils % 1.0 Lymphocytes % 4.4 L Lymphocytes % (Manual) 5.0 L D Monocytes % 7.1 Monocytes % (Manual) 5 Eosinophils % 0.1 Eosinophils % (Manual) 0.0 Basophils % 0.2 Basophils % (Manual) 0.0 Myelocytes % (Man) 0 Promyelocytes % (Man) 0 Blast Cells % (Manual) 0 Nucleated RBC % 0 Metamyelocytes 1 D Hypochromia 0 Platelet Estimate Normal Platelet Comment Present Polychromasia 2+ Poikilocytosis 2+ Anisocytosis 2+ Microcytosis 2+ Macrocytosis 0 Spherocytes 2+ Target Cells Ovalocytes [place] Cells 1+ Fragmented RBCs Sodium 134 L Potassium 4.6 Chloride 97 L Carbon Dioxide 26 Anion Gap 11 BUN 96 H Creatinine 6.0 H Est GFR (CKD-EPI)AfAm 10.59 Est GFR (CKD-EPI)NonAf 9.14 POC Glucometer 337 Random Glucose 199 H Calcium 8.5 Total Bilirubin 0.5 AST 27 ALT 28 Alkaline Phosphatase 87 Total Protein 6.0 L Albumin 2.8 L 06/30/18 06/30/18 05:58 12:06 WBC RBC Hgb Hct MCV MCH MCHC RDW Plt Count MPV Absolute Neuts (auto) Neutrophils % Neutrophils % (Manual) Band Neutrophils % Lymphocytes % Lymphocytes % (Manual) Monocytes % Monocytes % (Manual) Eosinophils % Eosinophils % (Manual) Basophils % Basophils % (Manual) Myelocytes % (Man) Promyelocytes % (Man) Blast Cells % (Manual) Nucleated RBC % Metamyelocytes Hypochromia Platelet Estimate Platelet Comment Polychromasia Poikilocytosis Anisocytosis Microcytosis Macrocytosis Spherocytes Target Cells Ovalocytes Robert Cells Fragmented RBCs Sodium Potassium Chloride Carbon Dioxide Anion Gap BUN Creatinine Est GFR (CKD-EPI)AfAm Est GFR (CKD-EPI)NonAf POC Glucometer 192 195 Random Glucose Calcium Total Bilirubin AST ALT Alkaline Phosphatase Total Protein Albumin A/P Acute on Chronic Systolic Heart Failure Acute on Chronic Renal Failure Pneumonia r/o COPD Exacerbation +Troponins likely Demand Ischemia Pulmonary HTN Obstructive Sleep Apnea h/o L Nephrectomy HTN DM - HD per renal with ultrafiltration - daily weights - continue antibiotics - medrol x 3 days then stop - inhaled bronchodilators - O2 to keep SpO2 >90% - glucose control while on systemic steroids - outpt PFTs - DVT prophylaxis Dr Mckeon
--- NOTE | 2018-06-30 12:40 | PN ---
Progress Note, Physician Chief Complaint: patient seen and examined sitting up in chair says he still has cough got lasix 2 days in a row - Current Medication List Current Medications: Active Medications Acetaminophen (Tylenol -) 650 mg PO Q6H PRN PRN Reason: FEVER Last Admin: 06/22/18 14:11 Dose: 650 mg Albuterol/Ipratropium (Duoneb -) 1 amp NEB RQID [facility] Last Admin: 06/30/18 11:30 Dose: 1 amp Albuterol/Ipratropium (Duoneb -) 1 amp NEB Q4H PRN PRN Reason: SHORTNESS OF BREATH Last Admin: 06/26/18 06:09 Dose: 1 amp Alprazolam (Xanax -) 0.5 mg PO Q8H PRN PRN Reason: ANXIETY Last Admin: 06/27/18 21:46 Dose: 0.5 mg Amlodipine Besylate (Norvasc -) 10 mg PO DAILY [facility] Last Admin: 06/30/18 11:29 Dose: 10 mg Aspirin (Ecotrin -) 81 mg PO DAILY [facility] Last Admin: 06/30/18 11:29 Dose: 81 mg Atorvastatin Calcium (Lipitor -) 20 mg PO HS [facility] Last Admin: 06/29/18 21:14 Dose: 20 mg Collagenase (Santyl -) 1 applic TP DAILY [facility]; Protocol Last Admin: 06/29/18 18:00 Dose: 1 applic Cyanocobalamin (Vitamin B12 -) 1,000 mcg PO DAILY [facility] Last Admin: 06/30/18 11:29 Dose: 1,000 mcg Guaifenesin (Robitussin -) 10 ml PO Q8H PRN PRN Reason: COUGH Last Admin: 06/26/18 09:48 Dose: 10 ml Hydralazine HCl (Apresoline -) 25 mg PO TID [facility] Last Admin: 06/30/18 06:16 Dose: 25 mg Piperacillin Sod/Tazobactam (Sod 2.25 gm/ Dextrose) 50 mls @ 100 mls/hr IVPB Q8H-IV [facility]; Protocol Last Admin: 06/30/18 11:30 Dose: 100 mls/hr Insulin Aspart (Novolog Vial Sliding Scale -) 1 vial SQ ACHS [facility]; Protocol Last Admin: 06/30/18 06:17 Dose: 5 units Insulin Detemir (Levemir Vial) 40 units SQ BID@0700,2200 [facility] Last Admin: 06/30/18 06:16 Dose: 40 units Isosorbide Dinitrate (Isordil -) 5 mg PO BIDISORDIL [facility] Last Admin: 06/30/18 11:29 Dose: 5 mg Methylprednisolone Sodium Succinate (Solu-Medrol -) 40 mg IVPUSH DAILY [facility] Last Admin: 06/29/18 12:51 Dose: 40 mg Pantoprazole Sodium (Protonix Iv) 40 mg IVPB DAILY [facility] Last Admin: 06/29/18 12:50 Dose: 40 mg - Objective Vital Signs: Vital Signs Temperature 98 F 06/30/18 06:00 Pulse Rate 102 H 06/30/18 06:00 Respiratory Rate 20 06/30/18 06:00 Blood Pressure 155/72 06/30/18 06:00 O2 Sat by Pulse Oximetry (%) 94 L 06/29/18 20:29 Constitutional: Yes: Calm Cardiovascular: Yes: Regular Rate and Rhythm, S1, S2 Respiratory: Yes: Diminished, On Nasal O2 Gastrointestinal: Yes: Normal Bowel Sounds, Soft Edema: Yes Neurological: Yes: Alert, Oriented Labs: CBC, BMP 06/30/18 05:30 06/30/18 05:30 INR, PTT INR 1.14 (0.83-1.09) H 06/12/18 23:30 Problem List - Problems (1) Chronic renal disease Assessment/Plan: HD via [facility] on weekend renal team on board Code(s): N18.9 - CHRONIC KIDNEY DISEASE, UNSPECIFIED (2) Dyspnea Assessment/Plan: iv medrol for another 3 days iv abx course completed bronchodilator Code(s): R06.00 - DYSPNEA, UNSPECIFIED (3) Fever Assessment/Plan: blood cultures no growth ID follow up i Microbiology 06/19/18 21:45 Urine For Antigen Detection Legionella Antigen - Final 06/19/18 21:45 Urine For Antigen Detection Streptococcus pneumoniae Antigen (M - Final 06/13/18 19:30 Blood - Peripheral Venous Blood Culture - Final NO GROWTH AFTER 5 DAYS INCUBATION 06/13/18 19:00 Blood - Peripheral Venous Blood Culture - Final NO GROWTH AFTER 5 DAYS INCUBATION 06/12/18 21:00 Blood - Peripheral Venous Blood Culture - Final NO GROWTH AFTER 5 DAYS INCUBATION Microbiology 06/22/18 15:45 Nasopharyngeal Swab Respiratory Virus (PCR) - Final metapneumovirus positive droplet precautions antibiotic started again Code(s): R50.9 - FEVER, UNSPECIFIED (4) Wound, open, toe Assessment/Plan: podiatry on board MRI - no evidence of osteo santly to the wound iv cefazolin course done Code(s): S91.109A - UNSP OPEN WOUND OF UNSP TOE(S) W/O DAMAGE TO NAIL, INIT (5) Elevated troponin Assessment/Plan: trend troponin- down wards cardiology on board to review stress test Ejection Fraction 30% and small areas of ischemia echo at least mildly reduced LV fx iv heparin stop Code(s): R74.8 - ABNORMAL LEVELS OF OTHER SERUM ENZYMES (6) Diabetes Assessment/Plan: inc bgm secondary to steroids inc dose to 30units bid levemir bid Code(s): E11.9 - TYPE 2 DIABETES MELLITUS WITHOUT COMPLICATIONS Qualifiers: Diabetes mellitus type: type 1 Diabetes mellitus complication status: with skin complications Diabetes mellitus complication detail: with foot ulcer Qualified Code(s): E10.621 - Type 1 diabetes mellitus with foot ulcer (7) D-dimer, elevated Code(s): R79.89 - OTHER SPECIFIED ABNORMAL FINDINGS OF BLOOD CHEMISTRY
[2018-06-30] MEDS: COLLAGENASE CLOSTRIDIUM HIST. 30 GRAMS TUBE TP SCH (13:11)
[2018-06-30] MEDS: methylPREDNISolone NA SUCC 40 MG/1 ML VIAL IVPUSH SCH (13:11)
[2018-06-30] MEDS ORDERED: SODIUM CHLORIDE 250 ML IV PRN (13:11)
[2018-06-30] MEDS: PANTOPRAZOLE SODIUM 40 MG VIAL IVPB SCH (13:11)
--- NOTE | 2018-06-30 13:11 | PN ---
Progress Note, Physician History of Present Illness: Pt seen and examined at bedside. He is awake and alert. He feels that his breathing is improved. - Current Medication List Current Medications: Active Medications Acetaminophen (Tylenol -) 650 mg PO Q6H PRN PRN Reason: FEVER Last Admin: 06/22/18 14:11 Dose: 650 mg Albuterol/Ipratropium (Duoneb -) 1 amp NEB RQID [facility] Last Admin: 06/30/18 11:30 Dose: 1 amp Albuterol/Ipratropium (Duoneb -) 1 amp NEB Q4H PRN PRN Reason: SHORTNESS OF BREATH Last Admin: 06/26/18 06:09 Dose: 1 amp Alprazolam (Xanax -) 0.5 mg PO Q8H PRN PRN Reason: ANXIETY Last Admin: 06/27/18 21:46 Dose: 0.5 mg Amlodipine Besylate (Norvasc -) 10 mg PO DAILY [facility] Last Admin: 06/30/18 11:29 Dose: 10 mg Aspirin (Ecotrin -) 81 mg PO DAILY [facility] Last Admin: 06/30/18 11:29 Dose: 81 mg Atorvastatin Calcium (Lipitor -) 20 mg PO HS [facility] Last Admin: 06/29/18 21:14 Dose: 20 mg Collagenase (Santyl -) 1 applic TP DAILY [facility]; Protocol Last Admin: 06/29/18 18:00 Dose: 1 applic Cyanocobalamin (Vitamin B12 -) 1,000 mcg PO DAILY [facility] Last Admin: 06/30/18 11:29 Dose: 1,000 mcg Guaifenesin (Robitussin -) 10 ml PO Q8H PRN PRN Reason: COUGH Last Admin: 06/26/18 09:48 Dose: 10 ml Hydralazine HCl (Apresoline -) 25 mg PO TID [facility] Last Admin: 06/30/18 06:16 Dose: 25 mg Piperacillin Sod/Tazobactam (Sod 2.25 gm/ Dextrose) 50 mls @ 100 mls/hr IVPB Q8H-IV [facility]; Protocol Last Admin: 06/30/18 11:30 Dose: 100 mls/hr Insulin Aspart (Novolog Vial Sliding Scale -) 1 vial SQ ACHS [facility]; Protocol Last Admin: 06/30/18 06:17 Dose: 5 units Insulin Detemir (Levemir Vial) 40 units SQ BID@0700,2200 [facility] Last Admin: 06/30/18 06:16 Dose: 40 units Isosorbide Dinitrate (Isordil -) 5 mg PO BIDISORDIL [facility] Last Admin: 06/30/18 11:29 Dose: 5 mg Methylprednisolone Sodium Succinate (Solu-Medrol -) 40 mg IVPUSH DAILY [facility] Last Admin: 06/29/18 12:51 Dose: 40 mg Pantoprazole Sodium (Protonix Iv) 40 mg IVPB DAILY [facility] Last Admin: 06/29/18 12:50 Dose: 40 mg - Objective Vital Signs: Vital Signs Temperature 98 F 06/30/18 06:00 Pulse Rate 102 H 06/30/18 06:00 Respiratory Rate 20 06/30/18 06:00 Blood Pressure 155/72 06/30/18 06:00 O2 Sat by Pulse Oximetry (%) 94 L 06/29/18 20:29 Constitutional: Yes: Calm Eyes: Yes: Conjunctiva Clear HENT: Yes: Atraumatic Neck: Yes: Supple Cardiovascular: Yes: S1, S2 Respiratory: Yes: Wheezes Gastrointestinal: Yes: Soft Genitourinary: Yes: WNL Musculoskeletal: Yes: WNL Edema: Yes Edema: LLE: 1+, RLE: 1+ Neurological: Yes: Oriented Psychiatric: Yes: Oriented Labs: CBC, BMP 06/30/18 05:30 06/30/18 05:30 INR, PTT INR 1.14 (0.83-1.09) H 06/12/18 23:30 Problem List - Problems (1) Cellulitis Code(s): L03.90 - CELLULITIS, UNSPECIFIED (2) CKD (chronic kidney disease) Code(s): N18.9 - CHRONIC KIDNEY DISEASE, UNSPECIFIED Assessment/Plan Current Medications Generic Name Dose Route Start Last Admin Trade Name Freq PRN Reason Stop Dose Admin Acetaminophen 650 mg 06/19/18 20:47 06/22/18 14:11 Tylenol - PO 650 mg Q6H PRN Administration FEVER Albuterol/Ipratropium 1 amp 06/21/18 12:00 06/30/18 11:30 Duoneb - NEB 1 amp RQID [facility] Administration Albuterol/Ipratropium 1 amp 06/22/18 03:45 06/26/18 06:09 Duoneb - NEB 1 amp Q4H PRN Administration SHORTNESS OF BREATH Alprazolam 0.5 mg 06/26/18 18:12 06/27/18 21:46 Xanax - PO 0.5 mg Q8H PRN Administration ANXIETY Amlodipine Besylate 10 mg 06/13/18 10:00 06/30/18 11:29 Norvasc - PO 10 mg DAILY [facility] Administration Aspirin 81 mg 06/13/18 10:00 06/30/18 11:29 Ecotrin - PO 81 mg DAILY [facility] Administration Atorvastatin Calcium 20 mg 06/13/18 22:00 06/29/18 21:14 Lipitor - PO 20 mg HS [facility] Administration Collagenase 1 applic 06/13/18 11:30 06/29/18 18:00 Santyl - TP 1 applic DAILY [facility] Administration Protocol Cyanocobalamin 1,000 mcg 06/13/18 10:00 06/30/18 11:29 Vitamin B12 - PO 1,000 mcg DAILY [facility] Administration Guaifenesin 10 ml 06/20/18 18:11 06/26/18 09:48 Robitussin - PO 10 ml Q8H PRN Administration COUGH Hydralazine HCl 25 mg 06/13/18 22:00 06/30/18 06:16 Apresoline - PO 25 mg TID [facility] Administration Piperacillin Sod/Tazobactam 50 mls @ 100 mls/hr 06/19/18 18:00 06/30/18 11:30 Sod 2.25 gm/ Dextrose IVPB 100 mls/hr Q8H-IV [facility] Administration Protocol Insulin Aspart 1 vial 06/24/18 17:45 06/30/18 06:17 Novolog Vial Sliding Scale - SQ 5 units ACHS [facility] Administration Protocol Insulin Detemir 40 units 06/29/18 10:47 06/30/18 06:16 Levemir Vial SQ 40 units BID@0700,2200 [facility] Administration Isosorbide Dinitrate 5 mg 06/15/18 11:00 06/30/18 11:29 Isordil - PO 5 mg BIDISORDIL [facility] Administration Methylprednisolone Sodium Succinate 40 mg 06/29/18 10:00 06/29/18 12:51 Solu-Medrol - IVPUSH 40 mg DAILY [facility] Administration Pantoprazole Sodium 40 mg 06/29/18 11:15 06/29/18 12:50 Protonix Iv IVPB 40 mg DAILY [facility] Administration Laboratory Tests 06/26/18 06/26/18 19:20 19:20 Hep Bs Antigen Negative Hep Bs Antibody Non reactive Hep B Core Total Ab Negative Hep C Ab Diagnostic 0.2 Impression 1. CKD 2. elevated cardiac enzymes 3. DM 4. chest pain 5. hyperlipidemia 6. HTN 7. hx of Wilms tumor, s/p left nephrectomy 8. hyperkalemia 9. ESRD Plan - HD tomorrow - will UF more volume tomorrow - renal diet - monitor potassium - fistula has thrill and bruit - vascular follow up - steroids with taper as tolerated
--- NOTE | 2018-06-30 14:42 | PN ---
Progress Note (short form) - Note Progress Note: feels improved today now on HD feels better less cough, less sob Vital Signs Period Temp Pulse Resp BP Sys/Barrera Pulse Ox Last 24 Hr 98 F-98.2 F 99-103 19-20 140-155/72-78 94 cor-rrr lungs decreased bs at bases abd soft,nt ext +edema CBC, BMP 06/30/18 05:30 06/30/18 05:30 Microbiology 06/22/18 15:45 Nasopharyngeal Swab Respiratory Virus (PCR) - Final-+ METAPNEUMOVIRUS 06/19/18 17:05 Blood - Peripheral Venous Blood Culture - Final NO GROWTH AFTER 5 DAYS INCUBATION 06/19/18 16:45 Blood - Peripheral Venous Blood Culture - Final NO GROWTH AFTER 5 DAYS INCUBATION 06/20/18 11:30 Sputum - Expectorated Gram Stain - Final 06/20/18 11:30 Sputum - Expectorated Sputum Culture - Final NORMAL RESPIRATORY YANI 06/19/18 21:45 Urine For Antigen Detection Legionella Antigen - Final 06/19/18 21:45 Urine For Antigen Detection Streptococcus pneumoniae Antigen (M - Final 06/13/18 19:00 Blood - Peripheral Venous Blood Culture - Final NO GROWTH AFTER 5 DAYS INCUBATION 06/13/18 19:30 Blood - Peripheral Venous Blood Culture - Final NO GROWTH AFTER 5 DAYS INCUBATION 06/12/18 21:00 Blood - Peripheral Venous Blood Culture - Final NO GROWTH AFTER 5 DAYS INCUBATION MRI of toe no osteomyelitis a/p fevers -resolved, pneumonia resolved viral resp panel-metapneumovirus urinary antigens negative day #11 zoelie, will d/c history of DM/CKD-now on HD please call back if needed Problem List - Problems (1) Chills (without fever) Code(s): R68.83 - CHILLS (WITHOUT FEVER) (2) Cellulitis Code(s): L03.90 - CELLULITIS, UNSPECIFIED (3) Wound, open, toe Code(s): S91.109A - UNSP OPEN WOUND OF UNSP TOE(S) W/O DAMAGE TO NAIL, INIT (4) CKD (chronic kidney disease) Code(s): N18.9 - CHRONIC KIDNEY DISEASE, UNSPECIFIED (5) Diabetes Code(s): E11.9 - TYPE 2 DIABETES MELLITUS WITHOUT COMPLICATIONS Qualifiers: Diabetes mellitus type: type 1 Diabetes mellitus complication status: with skin complications Diabetes mellitus complication detail: with foot ulcer Qualified Code(s): E10.621 - Type 1 diabetes mellitus with foot ulcer
--- NOTE | 2018-06-30 16:18 | SPA.PREOP ---
- PRE-OP NOTE Dx: ESRD on HD. Immature AVF Planned Procedure: Permacath Insertion Surgeon: Uri Guillen Last Vital Signs Temp Pulse Resp BP Pulse Ox 98 F 102 H 20 155/72 94 L 06/30/18 06:00 06/30/18 06:00 06/30/18 06:00 06/30/18 06:00 06/29/18 20:29 Lab Results WBC 10.8 K/mm3 (4.0-10.0) H 06/30/18 05:30 RBC 3.17 M/mm3 (4.00-5.60) L 06/30/18 05:30 Hgb 8.7 GM/dL (11.7-16.9) L 06/30/18 05:30 Hct 25.8 % (35.4-49) L 06/30/18 05:30 MCV 81.2 fl (80-96) 06/30/18 05:30 MCHC 33.9 g/dl (32.0-35.9) 06/30/18 05:30 RDW 13.9 % (11.9-15.9) 06/30/18 05:30 Plt Count 198 K/MM3 (134-434) 06/30/18 05:30 Sodium 134 mmol/L (136-145) L 06/30/18 05:30 Potassium 4.6 mmol/L (3.5-5.1) 06/30/18 05:30 Chloride 97 mmol/L (98-107) L 06/30/18 05:30 Carbon Dioxide 26 mmol/L (21-32) 06/30/18 05:30 Anion Gap 11 MMOL/L (8-16) 06/30/18 05:30 BUN 96 mg/dL (7-18) H 06/30/18 05:30 Creatinine 6.0 mg/dL (0.55-1.3) H 06/30/18 05:30 Random Glucose 199 mg/dL (74-106) H 06/30/18 05:30 Calcium 8.5 mg/dL (8.5-10.1) 06/30/18 05:30 INR 1.14 (0.83-1.09) H 06/12/18 23:30 - ASSESSMENT/PLAN 1. Make NPO after midnight except po meds 2. GI/DVT PPX 3. Medical optimization / clearance 4. Consent to be obtained by surgeon after risks, benefits and alternatives discussed with patient and or Health Care Proxy. Problem List - Problems (1) ESRD (end stage renal disease) Code(s): N18.6 - END STAGE RENAL DISEASE (2) CHF (congestive heart failure) Code(s): I50.9 - HEART FAILURE, UNSPECIFIED (3) Pulmonary hypertension Code(s): I27.20 - PULMONARY HYPERTENSION, UNSPECIFIED (4) Type 2 diabetes mellitus with diabetic chronic kidney disease Code(s): E11.22 - TYPE 2 DIABETES MELLITUS W DIABETIC CHRONIC KIDNEY DISEASE Visit type - Case Type Case Type: ED Admission
[2018-06-30 19:42] LABS: MAGNESIUM 2.3 mg/dL (1.8-2.4)
[2018-06-30] MEDS ORDERED: INSULIN (NOVOLOG) ASPART 100 UNITS/ML 10ML VIAL ONE (22:14)
[2018-06-30] MEDS: ATORVASTATIN CA 20 MG TABLET (FP) PO SCH (22:16)
[2018-07-01] MEDS: hydrALAZINE HCL 25 MG TABLET (FP) PO SCH ×3 (05:58→22:09)
[2018-07-01] MEDS: INSULIN (LEVEMIR) 100 UNITS/ML UNITS SQ SCH ×2 (06:00→22:10)
[2018-07-01] MEDS: INSULIN SLIDING SCALE (NOVOLOG) 1 VIAL SQ SCH ×4 (06:00→22:11)
[2018-07-01 07:05] LABS: BASO % 0.1 % (0-2.0); EOS % 0.1 % (0-4.5); HEMATOCRIT 25.7 % (35.4-49); HEMOGLOBIN 8.7 GM/dL (11.7-16.9); LYMPH % 3.8 % (8-40); MCH 27.4 pg (25.7-33.7); MCHC 33.8 g/dl (32.0-35.9); MEAN CELL VOLUME 81.3 fl (80-96); MEAN PLT VOLUME 8.9 fl (7.5-11.1); MONO % 5.6 % (3.8-10.2); NEUT % 90.4 % (42.8-82.8); PLATELET COUNT 199 K/MM3 (134-434); RBC 3.16 M/mm3 (4.00-5.60); WHITE BLOOD COUNT 10.6 K/mm3 (4.0-10.0)
[2018-07-01] MEDS: ALBUTEROL SO4 2.5/IPRATROPIUM 0.5 INH SOL 3 ML VIAL.NEB. NEB SCH ×4 (07:35→20:45)
[2018-07-01 08:03] LABS: ALBUMIN 2.8 g/dl (3.4-5.0); BILIRUBIN,TOTAL 0.4 mg/dL (0.2-1); CALCIUM 8.2 mg/dL (8.5-10.1); CREATININE 6.3 mg/dL (0.55-1.3); POTASSIUM 4.7 mmol/L (3.5-5.1); TOT PROT 6.2 g/dl (6.4-8.2)
--- NOTE | 2018-07-01 08:44 | PN ---
Progress Note, Physician - Current Medication List Current Medications: Active Medications Acetaminophen (Tylenol -) 650 mg PO Q6H PRN PRN Reason: FEVER Last Admin: 06/22/18 14:11 Dose: 650 mg Albuterol/Ipratropium (Duoneb -) 1 amp NEB RQID [facility] Last Admin: 07/01/18 07:35 Dose: 1 amp Albuterol/Ipratropium (Duoneb -) 1 amp NEB Q4H PRN PRN Reason: SHORTNESS OF BREATH Last Admin: 06/26/18 06:09 Dose: 1 amp Alprazolam (Xanax -) 0.5 mg PO Q8H PRN PRN Reason: ANXIETY Last Admin: 06/27/18 21:46 Dose: 0.5 mg Amlodipine Besylate (Norvasc -) 10 mg PO DAILY [facility] Last Admin: 06/30/18 11:29 Dose: 10 mg Aspirin (Ecotrin -) 81 mg PO DAILY [facility] Last Admin: 06/30/18 11:29 Dose: 81 mg Atorvastatin Calcium (Lipitor -) 20 mg PO HS [facility] Last Admin: 06/30/18 22:16 Dose: 20 mg Collagenase (Santyl -) 1 applic TP DAILY [facility]; Protocol Last Admin: 06/30/18 13:11 Dose: 1 applic Cyanocobalamin (Vitamin B12 -) 1,000 mcg PO DAILY [facility] Last Admin: 06/30/18 11:29 Dose: 1,000 mcg Epoetin Ulises (Epogen -) 4,000 unit IVPUSH ONCE ONE Stop: 07/01/18 13:12 Guaifenesin (Robitussin -) 10 ml PO Q8H PRN PRN Reason: COUGH Last Admin: 06/26/18 09:48 Dose: 10 ml Hydralazine HCl (Apresoline -) 25 mg PO TID [facility] Last Admin: 07/01/18 05:58 Dose: 25 mg Sodium Chloride (Normal Saline -) 250 mls @ 3,000 mls/hr IV PRN PRN PRN Reason: Hypotension during Dialysis Stop: 07/01/18 13:11 Insulin Aspart (Novolog Vial Sliding Scale -) 1 vial SQ ACHS [facility]; Protocol Last Admin: 07/01/18 06:00 Dose: 5 unit Insulin Detemir (Levemir Vial) 40 units SQ BID@0700,2200 [facility] Last Admin: 07/01/18 06:00 Dose: 40 units Isosorbide Dinitrate (Isordil -) 5 mg PO BIDISORDIL [facility] Last Admin: 06/30/18 17:49 Dose: 5 mg Methylprednisolone Sodium Succinate (Solu-Medrol -) 40 mg IVPUSH DAILY [facility] Last Admin: 06/30/18 13:11 Dose: 40 mg Pantoprazole Sodium (Protonix Iv) 40 mg IVPB DAILY [facility] Last Admin: 06/30/18 13:11 Dose: 40 mg - Objective Vital Signs: Vital Signs Temperature 98.1 F 07/01/18 06:00 Pulse Rate 103 H 07/01/18 06:00 Respiratory Rate 20 07/01/18 06:00 Blood Pressure 154/76 07/01/18 06:00 O2 Sat by Pulse Oximetry (%) 95 06/30/18 21:00 Cardiovascular: Yes: S1, S2 Respiratory: Yes: On Nasal O2, Rhonchi Gastrointestinal: Yes: Normal Bowel Sounds, Soft Labs: CBC, BMP 07/01/18 05:30 07/01/18 05:30 INR, PTT INR 1.14 (0.83-1.09) H 06/12/18 23:30 Problem List - Problems (1) CHF (congestive heart failure) Code(s): I50.9 - HEART FAILURE, UNSPECIFIED (2) Pneumonia Code(s): J18.9 - PNEUMONIA, UNSPECIFIED ORGANISM (3) Cardiomyopathy Code(s): I42.9 - CARDIOMYOPATHY, UNSPECIFIED (4) Type 2 diabetes mellitus with diabetic chronic kidney disease Code(s): E11.22 - TYPE 2 DIABETES MELLITUS W DIABETIC CHRONIC KIDNEY DISEASE (5) Chronic renal disease Code(s): N18.9 - CHRONIC KIDNEY DISEASE, UNSPECIFIED Assessment/Plan - Problems (1) Chronic renal disease Assessment/Plan: HD via [facility] on weekend renal team on board Code(s): N18.9 - CHRONIC KIDNEY DISEASE, UNSPECIFIED (2) Dyspnea Assessment/Plan: iv medrol for another 3 days iv abx course completed bronchodilator Code(s): R06.00 - DYSPNEA, UNSPECIFIED (3) Fever Assessment/Plan: blood cultures no growth ID follow up i Microbiology 06/19/18 21:45 Urine For Antigen Detection Legionella Antigen - Final 06/19/18 21:45 Urine For Antigen Detection Streptococcus pneumoniae Antigen (M - Final 06/13/18 19:30 Blood - Peripheral Venous Blood Culture - Final NO GROWTH AFTER 5 DAYS INCUBATION 06/13/18 19:00 Blood - Peripheral Venous Blood Culture - Final NO GROWTH AFTER 5 DAYS INCUBATION 06/12/18 21:00 Blood - Peripheral Venous Blood Culture - Final NO GROWTH AFTER 5 DAYS INCUBATION Microbiology 06/22/18 15:45 Nasopharyngeal Swab Respiratory Virus (PCR) - Final metapneumovirus positive droplet precautions antibiotic started again Code(s): R50.9 - FEVER, UNSPECIFIED (4) Wound, open, toe Assessment/Plan: podiatry on board MRI - no evidence of osteo santly to the wound iv cefazolin course done Code(s): S91.109A - UNSP OPEN WOUND OF UNSP TOE(S) W/O DAMAGE TO NAIL, INIT (5) Elevated troponin Assessment/Plan: trend troponin- down wards cardiology on board to review stress test Ejection Fraction 30% and small areas of ischemia echo at least mildly reduced LV fx iv heparin stop Code(s): R74.8 - ABNORMAL LEVELS OF OTHER SERUM ENZYMES (6) Diabetes Assessment/Plan: inc bgm secondary to steroids inc dose to 30units bid levemir bid Code(s): E11.9 - TYPE 2 DIABETES MELLITUS WITHOUT COMPLICATIONS Qualifiers: Diabetes mellitus type: type 1 Diabetes mellitus complication status: with skin complications Diabetes mellitus complication detail: with foot ulcer Qualified Code(s): E10.621 - Type 1 diabetes mellitus with foot ulcer (7) D-dimer, elevated Code(s): R79.89 - OTHER SPECIFIED ABNORMAL FINDINGS OF BLOOD CHEMISTRY
[2018-07-01 09:59] LABS: ANISOCYTOSIS 0; MACROCYTOSIS 0; PLATELET ESTIMATE NORMAL
[2018-07-01] MEDS: amLODIPine BESYLATE 10 MG TABLET (FP) PO SCH (10:36)
[2018-07-01] MEDS: ISOSORBIDE DINITRATE 5 MG TABLET PO SCH ×2 (10:37→19:13)
[2018-07-01] MEDS: methylPREDNISolone NA SUCC 40 MG/1 ML VIAL IVPUSH SCH (10:38)
[2018-07-01] MEDS: COLLAGENASE CLOSTRIDIUM HIST. 30 GRAMS TUBE TP SCH (10:39)
--- NOTE | 2018-07-01 11:12 | PN ---
Progress Note, Physician Chief Complaint: pulmonary alert,feeling better,less dyspneic - Current Medication List Current Medications: Active Medications Acetaminophen (Tylenol -) 650 mg PO Q6H PRN PRN Reason: FEVER Last Admin: 06/22/18 14:11 Dose: 650 mg Albuterol/Ipratropium (Duoneb -) 1 amp NEB RQID [facility] Last Admin: 07/01/18 07:35 Dose: 1 amp Albuterol/Ipratropium (Duoneb -) 1 amp NEB Q4H PRN PRN Reason: SHORTNESS OF BREATH Last Admin: 06/26/18 06:09 Dose: 1 amp Alprazolam (Xanax -) 0.5 mg PO Q8H PRN PRN Reason: ANXIETY Last Admin: 06/27/18 21:46 Dose: 0.5 mg Amlodipine Besylate (Norvasc -) 10 mg PO DAILY [facility] Last Admin: 07/01/18 10:36 Dose: 10 mg Aspirin (Ecotrin -) 81 mg PO DAILY [facility] Last Admin: 06/30/18 11:29 Dose: 81 mg Atorvastatin Calcium (Lipitor -) 20 mg PO HS [facility] Last Admin: 06/30/18 22:16 Dose: 20 mg Collagenase (Santyl -) 1 applic TP DAILY [facility]; Protocol Last Admin: 07/01/18 10:39 Dose: 1 applic Cyanocobalamin (Vitamin B12 -) 1,000 mcg PO DAILY [facility] Last Admin: 06/30/18 11:29 Dose: 1,000 mcg Epoetin Ulises (Epogen -) 4,000 unit IVPUSH ONCE ONE Stop: 07/01/18 13:12 Guaifenesin (Robitussin -) 10 ml PO Q8H PRN PRN Reason: COUGH Last Admin: 06/26/18 09:48 Dose: 10 ml Hydralazine HCl (Apresoline -) 25 mg PO TID [facility] Last Admin: 07/01/18 05:58 Dose: 25 mg Sodium Chloride (Normal Saline -) 250 mls @ 3,000 mls/hr IV PRN PRN PRN Reason: Hypotension during Dialysis Stop: 07/01/18 13:11 Insulin Aspart (Novolog Vial Sliding Scale -) 1 vial SQ ACHS [facility]; Protocol Last Admin: 07/01/18 06:00 Dose: 5 unit Insulin Detemir (Levemir Vial) 40 units SQ BID@0700,2200 [facility] Last Admin: 07/01/18 06:00 Dose: 40 units Isosorbide Dinitrate (Isordil -) 5 mg PO BIDISORDIL [facility] Last Admin: 07/01/18 10:37 Dose: 5 mg Methylprednisolone Sodium Succinate (Solu-Medrol -) 40 mg IVPUSH DAILY [facility] Last Admin: 07/01/18 10:38 Dose: 40 mg Pantoprazole Sodium (Protonix Iv) 40 mg IVPB DAILY [facility] Last Admin: 06/30/18 13:11 Dose: 40 mg - Objective Vital Signs: Vital Signs Temperature 98.1 F 07/01/18 06:00 Pulse Rate 103 H 07/01/18 06:00 Respiratory Rate 20 07/01/18 06:00 Blood Pressure 154/76 07/01/18 06:00 O2 Sat by Pulse Oximetry (%) 95 06/30/18 21:00 Constitutional: Yes: Well Nourished, Calm Eyes: Yes: WNL HENT: Yes: WNL Neck: Yes: WNL Cardiovascular: Yes: Regular Rate and Rhythm, S1, S2 Respiratory: Yes: Diminished Gastrointestinal: Yes: Normal Bowel Sounds, Soft Extremities: Yes: WNL Edema: Yes Labs: CBC, BMP 07/01/18 05:30 07/01/18 05:30 INR, PTT INR 1.14 (0.83-1.09) H 06/12/18 23:30 Problem List - Problems (1) Dyspnea Code(s): R06.00 - DYSPNEA, UNSPECIFIED (2) D-dimer, elevated Code(s): R79.89 - OTHER SPECIFIED ABNORMAL FINDINGS OF BLOOD CHEMISTRY (3) Elevated troponin Code(s): R74.8 - ABNORMAL LEVELS OF OTHER SERUM ENZYMES (4) Wound, open, toe Code(s): S91.109A - UNSP OPEN WOUND OF UNSP TOE(S) W/O DAMAGE TO NAIL, INIT (5) Acute kidney injury superimposed on chronic kidney disease Code(s): N17.9 - ACUTE KIDNEY FAILURE, UNSPECIFIED; N18.9 - CHRONIC KIDNEY DISEASE, UNSPECIFIED (6) CKD (chronic kidney disease) Code(s): N18.9 - CHRONIC KIDNEY DISEASE, UNSPECIFIED (7) HTN (hypertension) Code(s): I10 - ESSENTIAL (PRIMARY) HYPERTENSION Qualifiers: Hypertension type: essential hypertension Qualified Code(s): I10 - Essential (primary) hypertension (8) Hypercholesterolemia Code(s): E78.0 - PURE HYPERCHOLESTEROLEMIA * DO NOT USE * (9) Troponin I above reference range Code(s): R74.8 - ABNORMAL LEVELS OF OTHER SERUM ENZYMES (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 Assessment/Plan IMP DYSPNEA CARDIOMYOPATHY IMPROVING CKD + TROPONIN HTN DM H/O WILMS TUMOR S/P L NEPHRECTOMY PULMONARY HTN REBECCA AHI 26.5 ON SLEEP SCREEN LEFT FOOT ULCER PNEUMONIA PLAN HD PER RENAL PFTS OUTPATIENT FORMAL SLEEP STUDIES OUTPATIENT DAILY WT DVT PROPHYLAXIS INHALED BRONCHODILATORS MEDROL MONITOR LYTES,RENAL FUNCTION GLYCEMIC CONTRIOL PERMACATH INSERTION TODAY DR MCDANIEL Problem List - Problems (1) Dyspnea Code(s): R06.00 - DYSPNEA, UNSPECIFIED (2) D-dimer, elevated Code(s): R79.89 - OTHER SPECIFIED ABNORMAL FINDINGS OF BLOOD CHEMISTRY (3) Elevated troponin Code(s): R74.8 - ABNORMAL LEVELS OF OTHER SERUM ENZYMES (4) Wound, open, toe Code(s): S91.109A - UNSP OPEN WOUND OF UNSP TOE(S) W/O DAMAGE TO NAIL, INIT (5) Acute kidney injury superimposed on chronic kidney disease Code(s): N17.9 - ACUTE KIDNEY FAILURE, UNSPECIFIED; N18.9 - CHRONIC KIDNEY DISEASE, UNSPECIFIED (6) CKD (chronic kidney disease) Code(s): N18.9 - CHRONIC KIDNEY DISEASE, UNSPECIFIED (7) HTN (hypertension) Code(s): I10 - ESSENTIAL (PRIMARY) HYPERTENSION Qualifiers: Hypertension type: essential hypertension Qualified Code(s): I10 - Essential (primary) hypertension (8) Hypercholesterolemia Code(s): E78.0 - PURE HYPERCHOLESTEROLEMIA * DO NOT USE * (9) Troponin I above reference range Code(s): R74.8 - ABNORMAL LEVELS OF OTHER SERUM ENZYMES (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
--- NOTE | 2018-07-01 12:09 | PN ---
Progress Note (short form) - Note Progress Note: s: no chest pain, dyspnea TELE:sinus tach, 15 bt run NSVT x 2 Current Medications Acetaminophen (Tylenol -) 650 mg PO Q6H PRN PRN Reason: FEVER Last Admin: 06/22/18 14:11 Dose: 650 mg Albuterol/Ipratropium (Duoneb -) 1 amp NEB RQID [facility] Last Admin: 07/01/18 11:32 Dose: 1 amp Albuterol/Ipratropium (Duoneb -) 1 amp NEB Q4H PRN PRN Reason: SHORTNESS OF BREATH Last Admin: 06/26/18 06:09 Dose: 1 amp Alprazolam (Xanax -) 0.5 mg PO Q8H PRN PRN Reason: ANXIETY Last Admin: 06/27/18 21:46 Dose: 0.5 mg Amlodipine Besylate (Norvasc -) 10 mg PO DAILY [facility] Last Admin: 07/01/18 10:36 Dose: 10 mg Aspirin (Ecotrin -) 81 mg PO DAILY [facility] Last Admin: 06/30/18 11:29 Dose: 81 mg Atorvastatin Calcium (Lipitor -) 20 mg PO HS [facility] Last Admin: 06/30/18 22:16 Dose: 20 mg Collagenase (Santyl -) 1 applic TP DAILY [facility]; Protocol Last Admin: 07/01/18 10:39 Dose: 1 applic Cyanocobalamin (Vitamin B12 -) 1,000 mcg PO DAILY [facility] Last Admin: 06/30/18 11:29 Dose: 1,000 mcg Epoetin Ulises (Epogen -) 4,000 unit IVPUSH ONCE ONE Stop: 07/01/18 13:12 Guaifenesin (Robitussin -) 10 ml PO Q8H PRN PRN Reason: COUGH Last Admin: 06/26/18 09:48 Dose: 10 ml Hydralazine HCl (Apresoline -) 25 mg PO TID [facility] Last Admin: 07/01/18 05:58 Dose: 25 mg Sodium Chloride (Normal Saline -) 250 mls @ 3,000 mls/hr IV PRN PRN PRN Reason: Hypotension during Dialysis Stop: 07/01/18 13:11 Insulin Aspart (Novolog Vial Sliding Scale -) 1 vial SQ ACHS [facility]; Protocol Last Admin: 07/01/18 06:00 Dose: 5 unit Insulin Detemir (Levemir Vial) 40 units SQ BID@0700,2200 [facility] Last Admin: 07/01/18 06:00 Dose: 40 units Isosorbide Dinitrate (Isordil -) 5 mg PO BIDISORDIL [facility] Last Admin: 07/01/18 10:37 Dose: 5 mg Methylprednisolone Sodium Succinate (Solu-Medrol -) 40 mg IVPUSH DAILY [facility] Last Admin: 07/01/18 10:38 Dose: 40 mg Pantoprazole Sodium (Protonix Iv) 40 mg IVPB DAILY [facility] Last Admin: 06/30/18 13:11 Dose: 40 mg Vital Signs Period Temp Pulse Resp BP Sys/Barrera Pulse Ox Last 24 Hr 98 F-98.4 F 94-103 20-20 131-154/62-76 95 Constitutional: Yes: Calm Cardiovascular: Yes: Regular Rate and Rhythm Respiratory: Yes: CTA Bilaterally Gastrointestinal: Yes: Soft Edema: Yes Edema: LLE: 2+, RLE: 2+ Neurological: Yes: Alert, Oriented ...Motor Strength: WNL Assessment/Plan 1. Copd, sob: - wheezes on exam, on steroid taper, nebs per pulm 2. Elevated troponin, abnormal stress test: - trop 0.47, EKG no ischemic changes, history less consistent with ACS, may be 2 /2 demand in setting of food infection - recent mibi 04/2018 showed EF 30% and small area of mild ischemia. Images reviewed , mild apical ischemia with EF 30% range. - asymptomatic. Angiogram deferred given contrast allergy, was not yet on HD - V/Q scan negative for PE, heparin dc'ed - echo technically difficult, overall at least mildly reduced LV fx - continue aspirin, statin 3. Cardiomyopathy: - EF 30% on mibi - echo confirms at least mild LV dysfx - NSVT on tele - not on bb, monitoring on tele, replete lytes for K>4, Mg >2 - no bb given history of worsening dyspnea and wheezing with metoprolol, no MERRILL/ ARB given CKD -Medical management of underlying possible CAD as above - would consider angiogram when clinically stable, now on HD -continue hydralazine, imdur -vol management with HD 4. ESRD: - renal following, on HD now
[2018-07-01] MEDS ORDERED: DEXTROSE 5%-0.45% SALINE 1,000 ML IV SCH ×2 (12:45→23:08)
[2018-07-01] MEDS ORDERED: EPOETIN ALFA 2,000 UNIT/1 ML VIAL IVPUSH ONE (13:11)
--- NOTE | 2018-07-01 13:25 | PN ---
Progress Note, Physician History of Present Illness: Pt seen and examined at bedside. He is awake and alert. He is going for a permacath today. - Current Medication List Current Medications: Active Medications Acetaminophen (Tylenol -) 650 mg PO Q6H PRN PRN Reason: FEVER Last Admin: 06/22/18 14:11 Dose: 650 mg Albuterol/Ipratropium (Duoneb -) 1 amp NEB RQID [facility] Last Admin: 07/01/18 11:32 Dose: 1 amp Albuterol/Ipratropium (Duoneb -) 1 amp NEB Q4H PRN PRN Reason: SHORTNESS OF BREATH Last Admin: 06/26/18 06:09 Dose: 1 amp Alprazolam (Xanax -) 0.5 mg PO Q8H PRN PRN Reason: ANXIETY Last Admin: 06/27/18 21:46 Dose: 0.5 mg Amlodipine Besylate (Norvasc -) 10 mg PO DAILY [facility] Last Admin: 07/01/18 10:36 Dose: 10 mg Aspirin (Ecotrin -) 81 mg PO DAILY [facility] Last Admin: 06/30/18 11:29 Dose: 81 mg Atorvastatin Calcium (Lipitor -) 20 mg PO HS [facility] Last Admin: 06/30/18 22:16 Dose: 20 mg Collagenase (Santyl -) 1 applic TP DAILY [facility]; Protocol Last Admin: 07/01/18 10:39 Dose: 1 applic Cyanocobalamin (Vitamin B12 -) 1,000 mcg PO DAILY [facility] Last Admin: 06/30/18 11:29 Dose: 1,000 mcg Epoetin Ulises (Epogen -) 4,000 unit IVPUSH ONCE ONE Stop: 07/01/18 13:12 Guaifenesin (Robitussin -) 10 ml PO Q8H PRN PRN Reason: COUGH Last Admin: 06/26/18 09:48 Dose: 10 ml Hydralazine HCl (Apresoline -) 25 mg PO TID [facility] Last Admin: 07/01/18 05:58 Dose: 25 mg Sodium Chloride (Normal Saline -) 250 mls @ 3,000 mls/hr IV PRN PRN PRN Reason: Hypotension during Dialysis Stop: 07/01/18 13:11 Dextrose/Sodium Chloride (D5-1/2ns -) 1,000 mls @ 42 mls/hr IV ASDIR [facility] Insulin Aspart (Novolog Vial Sliding Scale -) 1 vial SQ ACHS [facility]; Protocol Last Admin: 07/01/18 06:00 Dose: 5 unit Insulin Detemir (Levemir Vial) 40 units SQ BID@0700,2200 [facility] Last Admin: 07/01/18 06:00 Dose: 40 units Isosorbide Dinitrate (Isordil -) 5 mg PO BIDISORDIL [facility] Last Admin: 07/01/18 10:37 Dose: 5 mg Methylprednisolone Sodium Succinate (Solu-Medrol -) 40 mg IVPUSH DAILY [facility] Last Admin: 07/01/18 10:38 Dose: 40 mg Pantoprazole Sodium (Protonix Iv) 40 mg IVPB DAILY [facility] Last Admin: 06/30/18 13:11 Dose: 40 mg - Objective Vital Signs: Vital Signs Temperature 98.1 F 07/01/18 06:00 Pulse Rate 103 H 07/01/18 06:00 Respiratory Rate 20 07/01/18 06:00 Blood Pressure 154/76 07/01/18 06:00 O2 Sat by Pulse Oximetry (%) 95 06/30/18 21:00 Constitutional: Yes: Calm Eyes: Yes: Conjunctiva Clear HENT: Yes: Atraumatic Neck: Yes: Supple Cardiovascular: Yes: S1, S2 Respiratory: Yes: On Nasal O2 Gastrointestinal: Yes: Normal Bowel Sounds, Soft Genitourinary: Yes: WNL Musculoskeletal: Yes: WNL Edema: Yes Edema: LLE: 1+, RLE: 1+ Integumentary: Yes: WNL Neurological: Yes: Oriented Psychiatric: Yes: Oriented Labs: CBC, BMP 07/01/18 05:30 07/01/18 05:30 INR, PTT INR 1.14 (0.83-1.09) H 06/12/18 23:30 Problem List - Problems (1) Cellulitis Code(s): L03.90 - CELLULITIS, UNSPECIFIED (2) CKD (chronic kidney disease) Code(s): N18.9 - CHRONIC KIDNEY DISEASE, UNSPECIFIED Assessment/Plan Current Medications Generic Name Dose Route Start Last Admin Trade Name Freq PRN Reason Stop Dose Admin Acetaminophen 650 mg 06/19/18 20:47 06/22/18 14:11 Tylenol - PO 650 mg Q6H PRN Administration FEVER Albuterol/Ipratropium 1 amp 06/21/18 12:00 07/01/18 11:32 Duoneb - NEB 1 amp RQID [facility] Administration Albuterol/Ipratropium 1 amp 06/22/18 03:45 06/26/18 06:09 Duoneb - NEB 1 amp Q4H PRN Administration SHORTNESS OF BREATH Alprazolam 0.5 mg 06/26/18 18:12 06/27/18 21:46 Xanax - PO 0.5 mg Q8H PRN Administration ANXIETY Amlodipine Besylate 10 mg 06/13/18 10:00 07/01/18 10:36 Norvasc - PO 10 mg DAILY [facility] Administration Aspirin 81 mg 06/13/18 10:00 06/30/18 11:29 Ecotrin - PO 81 mg DAILY [facility] Administration Atorvastatin Calcium 20 mg 06/13/18 22:00 06/30/18 22:16 Lipitor - PO 20 mg HS [facility] Administration Collagenase 1 applic 06/13/18 11:30 07/01/18 10:39 Santyl - TP 1 applic DAILY [facility] Administration Protocol Cyanocobalamin 1,000 mcg 06/13/18 10:00 06/30/18 11:29 Vitamin B12 - PO 1,000 mcg DAILY [facility] Administration Epoetin Ulises 4,000 unit 07/01/18 13:11 Epogen - IVPUSH 07/01/18 13:12 ONCE ONE Guaifenesin 10 ml 06/20/18 18:11 06/26/18 09:48 Robitussin - PO 10 ml Q8H PRN Administration COUGH Hydralazine HCl 25 mg 06/13/18 22:00 07/01/18 05:58 Apresoline - PO 25 mg TID [facility] Administration Sodium Chloride 250 mls @ 3,000 mls/hr 06/30/18 13:11 Normal Saline - IV 07/01/18 13:11 PRN PRN Hypotension during Dialysis Dextrose/Sodium Chloride 1,000 mls @ 42 mls/hr 07/01/18 12:45 D5-1/2ns - IV ASDIR [facility] Insulin Aspart 1 vial 06/24/18 17:45 07/01/18 06:00 Novolog Vial Sliding Scale - SQ 5 unit ACHS [facility] Administration Protocol Insulin Detemir 40 units 06/29/18 10:47 07/01/18 06:00 Levemir Vial SQ 40 units BID@0700,2200 [facility] Administration Isosorbide Dinitrate 5 mg 06/15/18 11:00 07/01/18 10:37 Isordil - PO 5 mg BIDISORDIL [facility] Administration Methylprednisolone Sodium Succinate 40 mg 06/29/18 10:00 07/01/18 10:38 Solu-Medrol - IVPUSH 40 mg DAILY [facility] Administration Pantoprazole Sodium 40 mg 06/29/18 11:15 06/30/18 13:11 Protonix Iv IVPB 40 mg DAILY [facility] Administration Impression 1. CKD 2. elevated cardiac enzymes 3. DM 4. chest pain 5. hyperlipidemia 6. HTN 7. hx of Wilms tumor, s/p left nephrectomy 8. hyperkalemia 9. ESRD Plan - HD today - pt going for permacath today - spoke to vascular - renal diet - monitor potassium - fistula has thrill and bruit - steroids with taper as tolerated
[2018-07-01] MEDS ORDERED: DEXTROSE 50%-WATER 25 GM/50 ML DISP.SYRIN ONE (14:36)
[2018-07-01] MEDS ORDERED: DEXTROSE 50%-WATER 25 GM/50 ML DISP.SYRIN IVPUSH ONE (15:00)
--- NOTE | 2018-07-01 15:25 | PN ---
Progress Note (short form) - Note Progress Note: Patient seen at bedside. Was alert and fine. Follow up left big toe. +improved cellulitis, + granultion, Chronic wound lef big toe. Continue santyl left big toe till d/c Dr Meza will follow
[2018-07-01] MEDS ORDERED: LIDOCAINE HCL 1%, 10 MG/ML (20ML VIAL) ONE (22:08)
[2018-07-01] MEDS ORDERED: ONDANSETRON 4 MG/2 ML VIAL IVPUSH PRN ×2 (22:08→23:08)
[2018-07-01] MEDS ORDERED: HEPARIN NA (PORCINE) 5,000 UNITS/ML 1ML VIAL ONE (22:08)
[2018-07-01] MEDS: ATORVASTATIN CA 20 MG TABLET (FP) PO SCH (22:10)
[2018-07-01] MEDS ORDERED: SODIUM CHLORIDE 1,000 ML IV SCH (22:15)
[2018-07-01] MEDS ORDERED: MIDAZOLAM HCL 2 MG/2 ML SINGLE DOSE VIAL ONE (22:22)
[2018-07-01] MEDS ORDERED: ceFAZolin SODIUM 1 GM VIAL IVPB ONE (22:32)
[2018-07-01] MEDS ORDERED: ceFAZolin SODIUM 1 GM VIAL ONE (22:32)
[2018-07-01] MEDS ORDERED: PROPOFOL 20 ML ONE (22:34)
[2018-07-01] MEDS ORDERED: INSULIN (LEVEMIR) 100 UNITS/ML UNITS SQ SCH (22:35)
[2018-07-01] MEDS ORDERED: LIDOCAINE HCL 1%, 10 MG/ML (20ML VIAL) INF ONE (22:36)
--- NOTE | 2018-07-01 22:47 | PN ---
Progress Note, Physician Chief Complaint: short of breath History of Present Illness: dm,esrd,chf,pneumonia,copd excarcerbation,improved clinically - Current Medication List Current Medications: Active Medications Acetaminophen (Tylenol -) 650 mg PO Q6H PRN PRN Reason: FEVER Last Admin: 06/22/18 14:11 Dose: 650 mg Albuterol/Ipratropium (Duoneb -) 1 amp NEB RQID [facility] Last Admin: 07/01/18 20:45 Dose: 1 amp Albuterol/Ipratropium (Duoneb -) 1 amp NEB Q4H PRN PRN Reason: SHORTNESS OF BREATH Last Admin: 06/26/18 06:09 Dose: 1 amp Alprazolam (Xanax -) 0.5 mg PO Q8H PRN PRN Reason: ANXIETY Last Admin: 06/27/18 21:46 Dose: 0.5 mg Amlodipine Besylate (Norvasc -) 10 mg PO DAILY [facility] Last Admin: 07/01/18 10:36 Dose: 10 mg Aspirin (Ecotrin -) 81 mg PO DAILY [facility] Last Admin: 06/30/18 11:29 Dose: 81 mg Atorvastatin Calcium (Lipitor -) 20 mg PO HS [facility] Last Admin: 06/30/18 22:16 Dose: 20 mg Collagenase (Santyl -) 1 applic TP DAILY [facility]; Protocol Last Admin: 07/01/18 10:39 Dose: 1 applic Cyanocobalamin (Vitamin B12 -) 1,000 mcg PO DAILY [facility] Last Admin: 06/30/18 11:29 Dose: 1,000 mcg Epoetin Ulises (Epogen -) 4,000 unit IVPUSH ONCE ONE Stop: 07/01/18 13:12 Fentanyl (Sublimaze Injection -) 50 mcg IVPUSH [id number] PRN PRN Reason: PAIN-PACU ORDER X 4 DOSES ONLY Guaifenesin (Robitussin -) 10 ml PO Q8H PRN PRN Reason: COUGH Last Admin: 06/26/18 09:48 Dose: 10 ml Hydralazine HCl (Apresoline -) 25 mg PO TID [facility] Last Admin: 07/01/18 15:00 Dose: 25 mg Sodium Chloride (Normal Saline -) 250 mls @ 3,000 mls/hr IV PRN PRN PRN Reason: Hypotension during Dialysis Stop: 07/01/18 13:11 Dextrose/Sodium Chloride (D5-1/2ns -) 1,000 mls @ 63 mls/hr IV ASDIR [facility] Last Admin: 07/01/18 12:45 Dose: 42 mls/hr Sodium Chloride (Normal Saline -) 1,000 mls @ 42 mls/hr IV [facility] Insulin Aspart (Novolog Vial Sliding Scale -) 1 vial SQ ACHS [facility]; Protocol Last Admin: 07/01/18 17:00 Dose: Not Given Insulin Detemir (Levemir Vial) 28 units SQ BID@0700,2200 [facility] Isosorbide Dinitrate (Isordil -) 5 mg PO BIDISORDIL [facility] Last Admin: 07/01/18 19:13 Dose: Not Given Methylprednisolone Sodium Succinate (Solu-Medrol -) 40 mg IVPUSH DAILY [facility] Last Admin: 07/01/18 10:38 Dose: 40 mg Ondansetron HCl (Zofran Injection) 4 mg IVPUSH Q6H PRN PRN Reason: NAUSEA AND/OR VOMITING Pantoprazole Sodium (Protonix Iv) 40 mg IVPB DAILY [facility] Last Admin: 06/30/18 13:11 Dose: 40 mg - Objective Vital Signs: Vital Signs Temperature 98.7 F 07/01/18 17:00 Pulse Rate 106 H 07/01/18 17:00 Respiratory Rate 20 07/01/18 17:00 Blood Pressure 150/77 07/01/18 17:00 O2 Sat by Pulse Oximetry (%) 95 07/01/18 09:00 Constitutional: Yes: Calm Eyes: Yes: EOM Intact HENT: Yes: Normocephalic Neck: Yes: Trachea Midline Cardiovascular: Yes: Tachycardia Respiratory: Yes: On Nasal O2 Gastrointestinal: Yes: Abdomen, Obese ...Rectal Exam: Yes: Deferred Breast(s): Yes: WNL Musculoskeletal: Yes: WNL Extremities: Yes: WNL Integumentary: Yes: WNL Neurological: Yes: Alert, Oriented Labs: CBC, BMP 07/01/18 05:30 07/01/18 05:30 INR, PTT INR 1.14 (0.83-1.09) H 06/12/18 23:30 Problem List - Problems (1) Type 2 diabetes mellitus with diabetic chronic kidney disease Code(s): E11.22 - TYPE 2 DIABETES MELLITUS W DIABETIC CHRONIC KIDNEY DISEASE (2) Cardiomyopathy Code(s): I42.9 - CARDIOMYOPATHY, UNSPECIFIED (3) D-dimer, elevated Code(s): R79.89 - OTHER SPECIFIED ABNORMAL FINDINGS OF BLOOD CHEMISTRY (4) Dyspnea Code(s): R06.00 - DYSPNEA, UNSPECIFIED (5) Elevated d-dimer Code(s): R79.89 - OTHER SPECIFIED ABNORMAL FINDINGS OF BLOOD CHEMISTRY (6) Elevated troponin Code(s): R74.8 - ABNORMAL LEVELS OF OTHER SERUM ENZYMES (7) NSTEMI (non-ST elevated myocardial infarction) Code(s): I21.4 - NON-ST ELEVATION (NSTEMI) MYOCARDIAL INFARCTION (8) Pulmonary hypertension Code(s): I27.20 - PULMONARY HYPERTENSION, UNSPECIFIED (9) Wound, open, toe Code(s): S91.109A - UNSP OPEN WOUND OF UNSP TOE(S) W/O DAMAGE TO NAIL, INIT Assessment/Plan Current Active Problems Bronchopneumonia due to human metapneumovirus (hMPV) (Acute) CHF (congestive heart failure) (Acute) Cardiomyopathy (Acute) Cellulitis (Acute) Chills (without fever) (Acute) D-dimer, elevated (Acute) Dyspnea (Acute) ESRD (end stage renal disease) (Acute) Elevated d-dimer (Acute) Elevated troponin (Acute) Fever (Acute) NSTEMI (non-ST elevated myocardial infarction) (Acute) Pneumonia (Acute) Pulmonary hypertension (Acute) Type 2 diabetes mellitus with diabetic chronic kidney disease (Acute) Wound, open, toe (Acute) Abnormal Lab Results 07/01/18 07/01/18 05:30 05:30 WBC 10.6 H RBC 3.16 L Hgb 8.7 L Hct 25.7 L Absolute Neuts (auto) 9.6 H Neutrophils % 90.4 H Neutrophils % (Manual) 92.9 H Lymphocytes % 3.8 L Lymphocytes % (Manual) 6.1 L D Monocytes % (Manual) 1 L BUN 106 H* Creatinine 6.3 H Random Glucose 188 H Calcium 8.2 L Total Protein 6.2 L Albumin 2.8 L plan: titration of levemir doses as renal hd levemir 28 units bid bgm qid novolog scale
--- NOTE | 2018-07-01 22:59 | OP ---
Operative Note - Note: Operative Date: 07/01/18 Pre-Operative Diagnosis: ESRD Operation: Insertion of permacath Post-Operative Diagnosis: Same as Pre-op Surgeon: Uri Guillen Anesthesia: Fractional Estimated Blood Loss (mls): 50 Operative Report Dictated: Yes
[2018-07-01] MEDS ORDERED: ACETAMINOPHEN 325 MG TABLET (FP) PO PRN (23:08)
[2018-07-01] MEDS ORDERED: ALBUTEROL SO4 2.5/IPRATROPIUM 0.5 INH SOL 3 ML VIAL.NEB. NEB PRN (23:08)
[2018-07-01] MEDS ORDERED: ALPRAZolam 0.25 MG TABLET PO PRN (23:08)
[2018-07-01] MEDS ORDERED: guaiFENesin 200 MG/10 ML 10 ML UNIT-DOSE CUPS PO PRN (23:08)
[2018-07-02] MEDS: SODIUM CHLORIDE 1,000 ML IV SCH (01:35)
--- NOTE | 2018-07-02 02:44 | HOSP ---
Subjective - Review of Symptoms Events since last encounter: Hospitalist Encounter Notified by the primary RN, that the patient's dressing s/p Permacath is heavily saturated. Was asked to evaluate. Subjective: Arrived to bedside, patient is asleep but arousable, oriented. +Sanguineous drainage noted to R- sided neck/chest, saline bag. Patient has no complaints PE see EMR Plan: RN to notify Vascular team Continue pressure dressings Monitor vitals CBC in am Continue with current regimen Physical Examination Vital Signs: Vital Signs Temperature 97.8 F 07/02/18 01:33 Pulse Rate 91 H 07/02/18 01:33 Respiratory Rate 20 07/02/18 01:33 Blood Pressure 132/64 07/02/18 01:33 O2 Sat by Pulse Oximetry (%) 98 07/01/18 23:40 Constitutional: Yes: Well Nourished, No Distress, Calm, Obese Eyes: Yes: Conjunctiva Clear, PERRL HENT: Yes: WNL, Atraumatic, Normocephalic Neck: Yes: Supple, Trachea Midline Cardiovascular: Yes: Regular Rate and Rhythm, S1, S2 Respiratory: Yes: On Nasal O2, Rhonchi Gastrointestinal: Yes: WNL, Normal Bowel Sounds, Soft, Abdomen, Obese Wound/Incision: Yes: Bleeding Neurological: Yes: WNL, Alert, Oriented Psychiatric: Yes: WNL, Alert, Oriented Labs: CBC, BMP 07/01/18 05:30 07/01/18 05:30
[2018-07-02] MEDS: INSULIN SLIDING SCALE (NOVOLOG) 1 VIAL SQ SCH ×3 (06:15→19:49)
[2018-07-02] MEDS: INSULIN (LEVEMIR) 100 UNITS/ML UNITS SQ SCH ×2 (06:22→21:36)
[2018-07-02] MEDS: hydrALAZINE HCL 25 MG TABLET (FP) PO SCH ×3 (06:23→21:36)
[2018-07-02 07:25] LABS: BASO % 0.2 % (0-2.0); HEMATOCRIT 25.5 % (35.4-49); HEMOGLOBIN 8.4 GM/dL (11.7-16.9); LYMPH % 4.5 % (8-40); MCHC 32.8 g/dl (32.0-35.9); MEAN CELL VOLUME 82.3 fl (80-96); MEAN PLT VOLUME 8.9 fl (7.5-11.1); MONO % 7.7 % (3.8-10.2); NEUT % 87.6 % (42.8-82.8); PLATELET COUNT 201 K/MM3 (134-434); RDW 14.5 % (11.9-15.9); WHITE BLOOD COUNT 9.5 K/mm3 (4.0-10.0)
[2018-07-02] MEDS: ALBUTEROL SO4 2.5/IPRATROPIUM 0.5 INH SOL 3 ML VIAL.NEB. NEB SCH ×4 (07:53→20:44)
[2018-07-02 08:15] LABS: ALBUMIN 2.7 g/dl (3.4-5.0); BILIRUBIN,TOTAL 0.4 mg/dL (0.2-1); CALCIUM 8.2 mg/dL (8.5-10.1); CREATININE 6.3 mg/dL (0.55-1.3); POTASSIUM 4.9 mmol/L (3.5-5.1); TOT PROT 5.8 g/dl (6.4-8.2)
--- NOTE | 2018-07-02 08:46 | PN ---
Progress Note, Physician - Current Medication List Current Medications: Active Medications Acetaminophen (Tylenol -) 650 mg PO Q6H PRN PRN Reason: FEVER Albuterol/Ipratropium (Duoneb -) 1 amp NEB Q4H PRN PRN Reason: SHORTNESS OF BREATH Albuterol/Ipratropium (Duoneb -) 1 amp NEB RQID [facility] Last Admin: 07/02/18 07:53 Dose: 1 amp Alprazolam (Xanax -) 0.5 mg PO Q8H PRN PRN Reason: ANXIETY Amlodipine Besylate (Norvasc -) 10 mg PO DAILY [facility] Aspirin (Ecotrin -) 81 mg PO DAILY [facility] Atorvastatin Calcium (Lipitor -) 20 mg PO HS [facility] Collagenase (Santyl -) 1 applic TP DAILY [facility]; Protocol Cyanocobalamin (Vitamin B12 -) 1,000 mcg PO DAILY [facility] Epoetin Ulises (Epogen -) 4,000 unit IVPUSH ONCE ONE Stop: 07/02/18 09:01 Last Admin: 07/02/18 08:29 Dose: 4,000 unit Fentanyl (Sublimaze Injection -) 50 mcg IVPUSH Q5M PRN PRN Reason: PAIN-PACU ORDER X 4 DOSES ONLY Guaifenesin (Robitussin -) 10 ml PO Q8H PRN PRN Reason: COUGH Hydralazine HCl (Apresoline -) 25 mg PO TID [facility] Last Admin: 07/02/18 06:23 Dose: Not Given Sodium Chloride (Normal Saline -) 250 mls @ 3,000 mls/hr IV PRN PRN PRN Reason: Hypotension during Dialysis Dextrose/Sodium Chloride (D5-1/2ns -) 1,000 mls @ 63 mls/hr IV ASDIR [facility] Last Admin: 07/02/18 01:30 Dose: Not Given Sodium Chloride (Normal Saline -) 1,000 mls @ 42 mls/hr IV ASDIR [facility] Last Admin: 07/02/18 01:35 Dose: Not Given Insulin Aspart (Novolog Vial Sliding Scale -) 1 vial SQ ACHS [facility]; Protocol Last Admin: 07/02/18 06:15 Dose: 8 unit Insulin Detemir (Levemir Vial) 28 units SQ BID@0700,2200 [facility] Last Admin: 07/02/18 06:22 Dose: 28 unit Isosorbide Dinitrate (Isordil -) 5 mg PO BIDISORDIL [facility] Methylprednisolone Sodium Succinate (Solu-Medrol -) 40 mg IVPUSH DAILY [facility] Ondansetron HCl (Zofran Injection) 4 mg IVPUSH Q6H PRN PRN Reason: NAUSEA AND/OR VOMITING Pantoprazole Sodium (Protonix Iv) 40 mg IVPB DAILY [facility] - Objective Vital Signs: Vital Signs Temperature 968.2 F H 07/02/18 07:10 Pulse Rate 102 H 07/02/18 07:15 Respiratory Rate 18 07/02/18 07:15 Blood Pressure 172/94 H 07/02/18 07:15 O2 Sat by Pulse Oximetry (%) 98 07/01/18 23:40 Cardiovascular: Yes: S1, S2 Respiratory: Yes: On Nasal O2, Rhonchi Gastrointestinal: Yes: Normal Bowel Sounds, Soft Labs: CBC, BMP 07/02/18 05:30 07/02/18 05:30 INR, PTT INR 1.14 (0.83-1.09) H 06/12/18 23:30 Problem List - Problems (1) CHF (congestive heart failure) Code(s): I50.9 - HEART FAILURE, UNSPECIFIED (2) Pneumonia Code(s): J18.9 - PNEUMONIA, UNSPECIFIED ORGANISM (3) Cardiomyopathy Code(s): I42.9 - CARDIOMYOPATHY, UNSPECIFIED (4) Type 2 diabetes mellitus with diabetic chronic kidney disease Code(s): E11.22 - TYPE 2 DIABETES MELLITUS W DIABETIC CHRONIC KIDNEY DISEASE (5) Chronic renal disease Code(s): N18.9 - CHRONIC KIDNEY DISEASE, UNSPECIFIED Assessment/Plan - Problems (1) Chronic renal disease Assessment/Plan: HD via [facility] on weekend renal team on board PERMA CATH PLACED 07/01 Code(s): N18.9 - CHRONIC KIDNEY DISEASE, UNSPECIFIED (2) Dyspnea Assessment/Plan: iv medrol TO PO iv abx course completed bronchodilator Code(s): R06.00 - DYSPNEA, UNSPECIFIED (3) Fever Assessment/Plan: AFEBRILE blood cultures no growth ID follow up i Microbiology 06/19/18 21:45 Urine For Antigen Detection Legionella Antigen - Final 06/19/18 21:45 Urine For Antigen Detection Streptococcus pneumoniae Antigen (M - Final 06/13/18 19:30 Blood - Peripheral Venous Blood Culture - Final NO GROWTH AFTER 5 DAYS INCUBATION 06/13/18 19:00 Blood - Peripheral Venous Blood Culture - Final NO GROWTH AFTER 5 DAYS INCUBATION 06/12/18 21:00 Blood - Peripheral Venous Blood Culture - Final NO GROWTH AFTER 5 DAYS INCUBATION Microbiology 06/22/18 15:45 Nasopharyngeal Swab Respiratory Virus (PCR) - Final metapneumovirus positive droplet precautions antibiotic started again Code(s): R50.9 - FEVER, UNSPECIFIED (4) Wound, open, toe Assessment/Plan: podiatry on board MRI - no evidence of osteo santly to the wound iv cefazolin course done Code(s): S91.109A - UNSP OPEN WOUND OF UNSP TOE(S) W/O DAMAGE TO NAIL, INIT (5) Elevated troponin Assessment/Plan: trend troponin- down wards cardiology on board to review stress test Ejection Fraction 30% and small areas of ischemia echo at least mildly reduced LV fx iv heparin stopPED Code(s): R74.8 - ABNORMAL LEVELS OF OTHER SERUM ENZYMES (6) Diabetes Assessment/Plan: inc bgm secondary to steroids inc dose to 30units bid levemir bid Code(s): E11.9 - TYPE 2 DIABETES MELLITUS WITHOUT COMPLICATIONS Qualifiers: Diabetes mellitus type: type 1 Diabetes mellitus complication status: with skin complications Diabetes mellitus complication detail: with foot ulcer Qualified Code(s): E10.621 - Type 1 diabetes mellitus with foot ulcer
[2018-07-02] MEDS ORDERED: SODIUM CHLORIDE 250 ML IV PRN (09:00)
[2018-07-02] MEDS ORDERED: EPOETIN ALFA 2,000 UNIT/1 ML VIAL IVPUSH ONE (09:00)
--- NOTE | 2018-07-02 09:24 | PN ---
Progress Note (short form) - Note Progress Note: POD 1, s/p R PC placement Pt seen and examined. Currently receiving HD bedside. PER HD RN no issues, PC working well. Overnight events noted, pt had some oozing from PC site which was evaluated and treated by attending Dr Guillen. Dressing this morning is c/d/i. No palpable hematoma. RN will cover dressing with tegaderm after completion of HD Pt should f/u outpt with Dr Guillen for permanent HD access planning
[2018-07-02] MEDS ORDERED: methylPREDNISolone NA SUCC 40 MG/1 ML VIAL IVPUSH SCH (10:00)
[2018-07-02] MEDS ORDERED: PANTOPRAZOLE SODIUM 40 MG VIAL IVPB SCH (10:00)
[2018-07-02 10:36] LABS: ANISOCYTOSIS 0; MACROCYTOSIS 0; PLATELET ESTIMATE NORMAL
[2018-07-02] MEDS: ISOSORBIDE DINITRATE 5 MG TABLET PO SCH (11:09)
[2018-07-02] MEDS: ASPIRIN COATED 81 MG TABLET.EC PO SCH (11:10)
[2018-07-02] MEDS: CYANOCOBALAMIN 1,000 MCG TABLET (FP) PO SCH (11:10)
[2018-07-02] MEDS: predniSONE 20 MG TABLET (UD) PO SCH ×2 (11:12→21:37)
[2018-07-02] MEDS: PANTOPRAZOLE 40 MG TABLET (FP) PO SCH (11:12)
[2018-07-02] MEDS: amLODIPine BESYLATE 10 MG TABLET (FP) PO SCH (11:13)
--- NOTE | 2018-07-02 11:48 | PN ---
Progress Note, Physician History of Present Illness: Pt seen and examined at bedside. He is awake and alert. He went to the OR late last night for the permacath and did not get dialysis yesterday. - Current Medication List Current Medications: Active Medications Acetaminophen (Tylenol -) 650 mg PO Q6H PRN PRN Reason: FEVER Albuterol/Ipratropium (Duoneb -) 1 amp NEB Q4H PRN PRN Reason: SHORTNESS OF BREATH Albuterol/Ipratropium (Duoneb -) 1 amp NEB RQID [facility] Last Admin: 07/02/18 11:11 Dose: 1 amp Alprazolam (Xanax -) 0.5 mg PO Q8H PRN PRN Reason: ANXIETY Amlodipine Besylate (Norvasc -) 10 mg PO DAILY [facility] Last Admin: 07/02/18 11:13 Dose: 10 mg Aspirin (Ecotrin -) 81 mg PO DAILY [facility] Last Admin: 07/02/18 11:10 Dose: 81 mg Atorvastatin Calcium (Lipitor -) 20 mg PO HS [facility] Collagenase (Santyl -) 1 applic TP DAILY [facility]; Protocol Cyanocobalamin (Vitamin B12 -) 1,000 mcg PO DAILY [facility] Last Admin: 07/02/18 11:10 Dose: 1,000 mcg Guaifenesin (Robitussin -) 10 ml PO Q8H PRN PRN Reason: COUGH Hydralazine HCl (Apresoline -) 25 mg PO TID [facility] Last Admin: 07/02/18 06:23 Dose: Not Given Sodium Chloride (Normal Saline -) 250 mls @ 3,000 mls/hr IV PRN PRN PRN Reason: Hypotension during Dialysis Sodium Chloride (Normal Saline -) 1,000 mls @ 42 mls/hr IV ASDIR [facility] Last Admin: 07/02/18 01:35 Dose: Not Given Insulin Aspart (Novolog Vial Sliding Scale -) 1 vial SQ ACHS [facility]; Protocol Last Admin: 07/02/18 11:16 Dose: 8 unit Insulin Detemir (Levemir Vial) 28 units SQ BID@0700,2200 [facility] Last Admin: 07/02/18 06:22 Dose: 28 unit Isosorbide Dinitrate (Isordil -) 5 mg PO BIDISORDIL [facility] Last Admin: 07/02/18 11:09 Dose: 5 mg Ondansetron HCl (Zofran Injection) 4 mg IVPUSH Q6H PRN PRN Reason: NAUSEA AND/OR VOMITING Pantoprazole Sodium (Protonix -) 40 mg PO DAILY [facility] Last Admin: 07/02/18 11:12 Dose: 40 mg Prednisone (Deltasone -) 20 mg PO BID [facility] Last Admin: 07/02/18 11:12 Dose: 20 mg - Objective Vital Signs: Vital Signs Temperature 98.2 F 07/02/18 09:00 Pulse Rate 102 H 07/02/18 10:30 Respiratory Rate 18 07/02/18 10:30 Blood Pressure 136/80 07/02/18 10:30 O2 Sat by Pulse Oximetry (%) 97 07/02/18 09:00 Constitutional: Yes: Calm Eyes: Yes: Conjunctiva Clear HENT: Yes: Atraumatic Neck: Yes: Supple Cardiovascular: Yes: S1, S2 Respiratory: Yes: CTA Bilaterally Gastrointestinal: Yes: Normal Bowel Sounds, Soft Genitourinary: Yes: WNL Musculoskeletal: Yes: WNL Edema: Yes Edema: LLE: 2+, RLE: 2+ Neurological: Yes: Oriented Psychiatric: Yes: Oriented Labs: CBC, BMP 07/02/18 05:30 07/02/18 05:30 INR, PTT INR 1.14 (0.83-1.09) H 06/12/18 23:30 Problem List - Problems (1) Cellulitis Code(s): L03.90 - CELLULITIS, UNSPECIFIED (2) CKD (chronic kidney disease) Code(s): N18.9 - CHRONIC KIDNEY DISEASE, UNSPECIFIED Assessment/Plan Current Medications Generic Name Dose Route Start Last Admin Trade Name Freq PRN Reason Stop Dose Admin Acetaminophen 650 mg 07/01/18 23:08 Tylenol - PO Q6H PRN FEVER Albuterol/Ipratropium 1 amp 07/01/18 23:08 Duoneb - NEB Q4H PRN SHORTNESS OF BREATH Albuterol/Ipratropium 1 amp 07/02/18 08:00 07/02/18 11:11 Duoneb - NEB 1 amp RQID [facility] Administration Alprazolam 0.5 mg 07/01/18 23:08 Xanax - PO Q8H PRN ANXIETY Amlodipine Besylate 10 mg 07/02/18 10:00 07/02/18 11:13 Norvasc - PO 10 mg DAILY [facility] Administration Aspirin 81 mg 07/02/18 10:00 07/02/18 11:10 Ecotrin - PO 81 mg DAILY [facility] Administration Atorvastatin Calcium 20 mg 07/02/18 22:00 Lipitor - PO HS [facility] Collagenase 1 applic 07/02/18 10:00 Santyl - TP DAILY [facility] Protocol Cyanocobalamin 1,000 mcg 07/02/18 10:00 07/02/18 11:10 Vitamin B12 - PO 1,000 mcg DAILY [facility] Administration Guaifenesin 10 ml 07/01/18 23:08 Robitussin - PO Q8H PRN COUGH Hydralazine HCl 25 mg 07/02/18 06:00 07/02/18 06:23 Apresoline - PO Not Given TID [facility] Sodium Chloride 250 mls @ 3,000 mls/hr 07/02/18 09:00 Normal Saline - IV PRN PRN Hypotension during Dialysis Sodium Chloride 1,000 mls @ 42 mls/hr 07/01/18 23:08 07/02/18 01:35 Normal Saline - IV Not Given ASD[facility] Insulin Aspart 1 vial 07/02/18 07:00 07/02/18 11:16 Novolog Vial Sliding Scale - SQ 8 unit ACHS [facility] Administration Protocol Insulin Detemir 28 units 07/02/18 07:00 07/02/18 06:22 Levemir Vial SQ 28 unit BID@0700,2200 [facility] Administration Isosorbide Dinitrate 5 mg 07/02/18 10:00 07/02/18 11:09 Isordil - PO 5 mg BIDISORDIL [facility] Administration Ondansetron HCl 4 mg 07/01/18 23:08 Zofran Injection IVPUSH Q6H PRN NAUSEA AND/OR VOMITING Pantoprazole Sodium 40 mg 07/02/18 10:00 07/02/18 11:12 Protonix - PO 40 mg DAILY [facility] Administration Prednisone 20 mg 07/02/18 10:00 07/02/18 11:12 Deltasone - PO 20 mg BID [facility] Administration Impression 1. CKD 2. elevated cardiac enzymes 3. DM 4. chest pain 5. hyperlipidemia 6. HTN 7. hx of Wilms tumor, s/p left nephrectomy 8. hyperkalemia 9. ESRD Plan - pt tolerated HD today - will likely dialyze again tomorrow - pending outpt placement - renal diet - monitor potassium - fistula has thrill and bruit - steroids with taper as tolerated
--- NOTE | 2018-07-02 12:05 | PN ---
Progress Note, Physician History of Present Illness: pulmonary alert,feeling better,sob improving post dialysis. O2 sat 94% on ra - Current Medication List Current Medications: Active Medications Acetaminophen (Tylenol -) 650 mg PO Q6H PRN PRN Reason: FEVER Albuterol/Ipratropium (Duoneb -) 1 amp NEB Q4H PRN PRN Reason: SHORTNESS OF BREATH Albuterol/Ipratropium (Duoneb -) 1 amp NEB RQID [facility] Last Admin: 07/02/18 11:11 Dose: 1 amp Alprazolam (Xanax -) 0.5 mg PO Q8H PRN PRN Reason: ANXIETY Amlodipine Besylate (Norvasc -) 10 mg PO DAILY [facility] Last Admin: 07/02/18 11:13 Dose: 10 mg Aspirin (Ecotrin -) 81 mg PO DAILY [facility] Last Admin: 07/02/18 11:10 Dose: 81 mg Atorvastatin Calcium (Lipitor -) 20 mg PO HS [facility] Collagenase (Santyl -) 1 applic TP DAILY [facility]; Protocol Cyanocobalamin (Vitamin B12 -) 1,000 mcg PO DAILY [facility] Last Admin: 07/02/18 11:10 Dose: 1,000 mcg Epoetin Ulises (Procrit -) 6,000 unit IVPUSH ONCE ONE Stop: 07/03/18 11:49 Guaifenesin (Robitussin -) 10 ml PO Q8H PRN PRN Reason: COUGH Heparin Sodium (Porcine) (Heparin -) 500 unit IVPUSH ONCE ONE Stop: 07/03/18 11:49 Hydralazine HCl (Apresoline -) 25 mg PO TID [facility] Last Admin: 07/02/18 06:23 Dose: Not Given Sodium Chloride (Normal Saline -) 250 mls @ 3,000 mls/hr IV PRN PRN PRN Reason: Hypotension during Dialysis Sodium Chloride (Normal Saline -) 1,000 mls @ 42 mls/hr IV ASDIR [facility] Last Admin: 07/02/18 01:35 Dose: Not Given Sodium Chloride (Normal Saline -) 250 mls @ 3,000 mls/hr IV PRN PRN PRN Reason: Hypotension during Dialysis Stop: 07/03/18 11:48 Insulin Aspart (Novolog Vial Sliding Scale -) 1 vial SQ ACHS [facility]; Protocol Last Admin: 05/15/19 11:16 Dose: 8 unit Insulin Detemir (Levemir Vial) 28 units SQ BID@0700,2200 [facility] Last Admin: 07/02/18 06:22 Dose: 28 unit Isosorbide Dinitrate (Isordil -) 5 mg PO BIDISORDIL [facility] Last Admin: 07/02/18 11:09 Dose: 5 mg Ondansetron HCl (Zofran Injection) 4 mg IVPUSH Q6H PRN PRN Reason: NAUSEA AND/OR VOMITING Pantoprazole Sodium (Protonix -) 40 mg PO DAILY [facility] Last Admin: 07/02/18 11:12 Dose: 40 mg Prednisone (Deltasone -) 20 mg PO BID [facility] Last Admin: 07/02/18 11:12 Dose: 20 mg - Objective Vital Signs: Vital Signs Temperature 98.2 F 07/02/18 09:00 Pulse Rate 102 H 07/02/18 10:30 Respiratory Rate 18 07/02/18 10:30 Blood Pressure 136/80 07/02/18 10:30 O2 Sat by Pulse Oximetry (%) 97 07/02/18 09:00 Constitutional: Yes: Well Nourished, Calm Eyes: Yes: WNL HENT: Yes: WNL Neck: Yes: WNL Cardiovascular: Yes: Regular Rate and Rhythm, S1, S2 Respiratory: Yes: Rales (bibasilar rales) Gastrointestinal: Yes: Normal Bowel Sounds, Soft Extremities: Yes: WNL Edema: Yes Labs: CBC, BMP 07/02/18 05:30 07/02/18 05:30 INR, PTT INR 1.14 (0.83-1.09) H 06/12/18 23:30 Problem List - Problems (1) Dyspnea Code(s): R06.00 - DYSPNEA, UNSPECIFIED (2) D-dimer, elevated Code(s): R79.89 - OTHER SPECIFIED ABNORMAL FINDINGS OF BLOOD CHEMISTRY (3) Elevated troponin Code(s): R74.8 - ABNORMAL LEVELS OF OTHER SERUM ENZYMES (4) Wound, open, toe Code(s): S91.109A - UNSP OPEN WOUND OF UNSP TOE(S) W/O DAMAGE TO NAIL, INIT (5) Acute kidney injury superimposed on chronic kidney disease Code(s): N17.9 - ACUTE KIDNEY FAILURE, UNSPECIFIED; N18.9 - CHRONIC KIDNEY DISEASE, UNSPECIFIED (6) CKD (chronic kidney disease) Code(s): N18.9 - CHRONIC KIDNEY DISEASE, UNSPECIFIED (7) HTN (hypertension) Code(s): I10 - ESSENTIAL (PRIMARY) HYPERTENSION Qualifiers: Hypertension type: essential hypertension Qualified Code(s): I10 - Essential (primary) hypertension (8) Hypercholesterolemia Code(s): E78.0 - PURE HYPERCHOLESTEROLEMIA * DO NOT USE * (9) Troponin I above reference range Code(s): R74.8 - ABNORMAL LEVELS OF OTHER SERUM ENZYMES (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 Assessment/Plan IMP DYSPNEA CARDIOMYOPATHY IMPROVING CKD + TROPONIN HTN DM H/O WILMS TUMOR S/P L NEPHRECTOMY PULMONARY HTN REBECCA AHI 26.5 ON SLEEP SCREEN LEFT FOOT ULCER PNEUMONIA RENAL FAILURE PLAN HD PER RENAL PFTS OUTPATIENT FORMAL SLEEP STUDIES OUTPATIENT DAILY WT DVT PROPHYLAXIS INHALED BRONCHODILATORS PREDNISONE MONITOR LYTES,RENAL FUNCTION GLYCEMIC CONTROL DR MCDANIEL Problem List - Problems (1) Dyspnea Code(s): R06.00 - DYSPNEA, UNSPECIFIED (2) D-dimer, elevated Code(s): R79.89 - OTHER SPECIFIED ABNORMAL FINDINGS OF BLOOD CHEMISTRY (3) Elevated troponin Code(s): R74.8 - ABNORMAL LEVELS OF OTHER SERUM ENZYMES (4) Wound, open, toe Code(s): S91.109A - UNSP OPEN WOUND OF UNSP TOE(S) W/O DAMAGE TO NAIL, INIT (5) Acute kidney injury superimposed on chronic kidney disease Code(s): N17.9 - ACUTE KIDNEY FAILURE, UNSPECIFIED; N18.9 - CHRONIC KIDNEY DISEASE, UNSPECIFIED (6) CKD (chronic kidney disease) Code(s): N18.9 - CHRONIC KIDNEY DISEASE, UNSPECIFIED (7) HTN (hypertension) Code(s): I10 - ESSENTIAL (PRIMARY) HYPERTENSION Qualifiers: Hypertension type: essential hypertension Qualified Code(s): I10 - Essential (primary) hypertension (8) Hypercholesterolemia Code(s): E78.0 - PURE HYPERCHOLESTEROLEMIA * DO NOT USE * (9) Troponin I above reference range Code(s): R74.8 - ABNORMAL LEVELS OF OTHER SERUM ENZYMES (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
--- NOTE | 2018-07-02 12:08 | PN ---
Progress Note (short form) - Note Progress Note: Anesthesia POD#1 S/P permacath under MAC VSS,no N/V,no pain Jacinta Gutierrez MD.
--- NOTE | 2018-07-02 12:20 | PN ---
Progress Note (short form) - Note Progress Note: s: no chest pain, dyspnea, edema TELE: sinus tach Current Medications Acetaminophen (Tylenol -) 650 mg PO Q6H PRN PRN Reason: FEVER Albuterol/Ipratropium (Duoneb -) 1 amp NEB Q4H PRN PRN Reason: SHORTNESS OF BREATH Albuterol/Ipratropium (Duoneb -) 1 amp NEB RQID [facility] Last Admin: 07/02/18 11:11 Dose: 1 amp Alprazolam (Xanax -) 0.5 mg PO Q8H PRN PRN Reason: ANXIETY Amlodipine Besylate (Norvasc -) 10 mg PO DAILY [facility] Last Admin: 07/02/18 11:13 Dose: 10 mg Aspirin (Ecotrin -) 81 mg PO DAILY [facility] Last Admin: 07/02/18 11:10 Dose: 81 mg Atorvastatin Calcium (Lipitor -) 20 mg PO HS [facility] Collagenase (Santyl -) 1 applic TP DAILY [facility]; Protocol Cyanocobalamin (Vitamin B12 -) 1,000 mcg PO DAILY [facility] Last Admin: 07/02/18 11:10 Dose: 1,000 mcg Epoetin Ulises (Procrit -) 6,000 unit IVPUSH ONCE ONE Stop: 07/03/18 11:49 Guaifenesin (Robitussin -) 10 ml PO Q8H PRN PRN Reason: COUGH Heparin Sodium (Porcine) (Heparin -) 500 unit IVPUSH ONCE ONE Stop: 07/03/18 11:49 Hydralazine HCl (Apresoline -) 25 mg PO TID [facility] Last Admin: 07/02/18 06:23 Dose: Not Given Sodium Chloride (Normal Saline -) 250 mls @ 3,000 mls/hr IV PRN PRN PRN Reason: Hypotension during Dialysis Sodium Chloride (Normal Saline -) 1,000 mls @ 42 mls/hr IV ASDIR [facility] Last Admin: 07/02/18 01:35 Dose: Not Given Sodium Chloride (Normal Saline -) 250 mls @ 3,000 mls/hr IV PRN PRN PRN Reason: Hypotension during Dialysis Stop: 07/03/18 11:48 Insulin Aspart (Novolog Vial Sliding Scale -) 1 vial SQ ACHS [facility]; Protocol Last Admin: 07/02/18 11:16 Dose: 8 unit Insulin Detemir (Levemir Vial) 28 units SQ BID@0700,2200 [facility] Last Admin: 07/02/18 06:22 Dose: 28 unit Isosorbide Dinitrate (Isordil -) 5 mg PO BIDISORDIL [facility] Last Admin: 07/02/18 11:09 Dose: 5 mg Ondansetron HCl (Zofran Injection) 4 mg IVPUSH Q6H PRN PRN Reason: NAUSEA AND/OR VOMITING Pantoprazole Sodium (Protonix -) 40 mg PO DAILY [facility] Last Admin: 07/02/18 11:12 Dose: 40 mg Prednisone (Deltasone -) 20 mg PO BID [facility] Last Admin: 07/02/18 11:12 Dose: 20 mg Vital Signs Period Temp Pulse Resp BP Sys/Barrera Pulse Ox Last 24 Hr 97.8 F-968.2 F 81-107 16-22 127-174/46-94 95-98 Constitutional: Yes: Calm Cardiovascular: Yes: Regular Rate and Rhythm Respiratory: Yes: CTA Bilaterally Gastrointestinal: Yes: Soft Edema: Yes Edema: LLE: 2+, RLE: 2+ Neurological: Yes: Alert, Oriented ...Motor Strength: WNL not agitated no jaundice 1. Copd, sob: - wheezes on exam, on steroid taper, nebs per pulm 2. Elevated troponin, abnormal stress test: - trop 0.47, EKG no ischemic changes, history less consistent with ACS, may be 2 /2 demand in setting of food infection - recent mibi 04/2018 showed EF 30% and small area of mild ischemia. Images reviewed , mild apical ischemia with EF 30% range. - asymptomatic. Angiogram deferred given contrast allergy, was not yet on HD - V/Q scan negative for PE, heparin dc'ed - echo technically difficult, overall at least mildly reduced LV fx - continue aspirin, statin 3. Cardiomyopathy: - EF 30% on mibi - echo confirms at least mild LV dysfx - NSVT on tele - not on bb, monitoring on tele, replete lytes for K>4, Mg >2 - no bb given history of worsening dyspnea and wheezing with metoprolol, no MERRILL/ ARB given CKD -Medical management of underlying possible CAD as above - would consider angiogram when clinically stable, now on HD -continue hydralazine, imdur -vol management with HD 4. ESRD: - renal following, on HD now, s/p permacath
[2018-07-02] MEDS: COLLAGENASE CLOSTRIDIUM HIST. 30 GRAMS TUBE TP SCH (14:19)
[2018-07-02] MEDS: ATORVASTATIN CA 20 MG TABLET (FP) PO SCH (21:37)
[2018-07-03 04:11] LABS: HBsAG SCREEN Negative (Negative)
[2018-07-03] MEDS: SODIUM CHLORIDE 1,000 ML IV SCH (04:50)
[2018-07-03] MEDS: hydrALAZINE HCL 25 MG TABLET (FP) PO SCH ×3 (06:25→21:17)
[2018-07-03] MEDS: INSULIN SLIDING SCALE (NOVOLOG) 1 VIAL SQ SCH ×3 (06:25→21:15)
[2018-07-03 07:32] LABS: BASO % 0.1 % (0-2.0); EOS % 0.1 % (0-4.5); HEMATOCRIT 26.5 % (35.4-49); HEMOGLOBIN 8.6 GM/dL (11.7-16.9); LYMPH % 3.4 % (8-40); MCH 26.7 pg (25.7-33.7); MCHC 32.4 g/dl (32.0-35.9); MEAN CELL VOLUME 82.3 fl (80-96); MEAN PLT VOLUME 8.8 fl (7.5-11.1); MONO % 4.8 % (3.8-10.2); NEUT % 91.6 % (42.8-82.8); PLATELET COUNT 186 K/MM3 (134-434); RBC 3.22 M/mm3 (4.00-5.60); RDW 14.3 % (11.9-15.9); WHITE BLOOD COUNT 11.1 K/mm3 (4.0-10.0)
[2018-07-03 08:28] LABS: ALBUMIN 2.8 g/dl (3.4-5.0); BILIRUBIN,TOTAL 0.5 mg/dL (0.2-1); CALCIUM 8.4 mg/dL (8.5-10.1); CREATININE 4.6 mg/dL (0.55-1.3); POTASSIUM 4.3 mmol/L (3.5-5.1)
[2018-07-03] MEDS: ALBUTEROL SO4 2.5/IPRATROPIUM 0.5 INH SOL 3 ML VIAL.NEB. NEB SCH ×4 (08:45→20:13)
[2018-07-03] MEDS: ISOSORBIDE DINITRATE 5 MG TABLET PO SCH ×3 (10:31→21:16)
[2018-07-03] MEDS: INSULIN (LEVEMIR) 100 UNITS/ML UNITS SQ SCH ×2 (10:35→21:17)
[2018-07-03] MEDS: predniSONE 20 MG TABLET (UD) PO SCH ×2 (11:04→21:17)
[2018-07-03] MEDS: ASPIRIN COATED 81 MG TABLET.EC PO SCH ×2 (11:04→21:18)
[2018-07-03] MEDS: CYANOCOBALAMIN 1,000 MCG TABLET (FP) PO SCH ×2 (11:05→21:18)
[2018-07-03] MEDS: PANTOPRAZOLE 40 MG TABLET (FP) PO SCH ×2 (11:05→21:18)
[2018-07-03] MEDS: amLODIPine BESYLATE 10 MG TABLET (FP) PO SCH ×2 (11:05→21:18)
[2018-07-03 11:23] LABS: ANISOCYTOSIS 1+; MACROCYTOSIS 1+; OVALOCYTE 1+; PLATELET ESTIMATE NORMAL
--- NOTE | 2018-07-03 12:01 | PN ---
Progress Note (short form) - Note Progress Note: Resting in NAD. No acute events overnight. Overall improving. Some nonproductive cough. Intake & Output 06/30/18 07/01/18 07/02/18 07/03/18 23:59 23:59 23:59 23:59 Intake Total 1200 250 920 0 Output Total 1250 0 700 580 Balance -50 250 220 -580 Weight 230 lb 231 lb 9.6 oz 227 lb Last Vital Signs Temp Pulse Resp BP Pulse Ox 98 F 98 H 18 160/70 100 07/03/18 09:00 07/03/18 09:00 07/03/18 09:00 07/03/18 09:00 07/02/18 21:00 Active Medications Acetaminophen (Tylenol -) 650 mg PO Q6H PRN PRN Reason: FEVER Albuterol/Ipratropium (Duoneb -) 1 amp NEB Q4H PRN PRN Reason: SHORTNESS OF BREATH Albuterol/Ipratropium (Duoneb -) 1 amp NEB RQID [facility] Last Admin: 07/03/18 08:45 Dose: 1 amp Alprazolam (Xanax -) 0.5 mg PO Q8H PRN PRN Reason: ANXIETY Amlodipine Besylate (Norvasc -) 10 mg PO DAILY [facility] Last Admin: 07/03/18 11:05 Dose: Not Given Aspirin (Ecotrin -) 81 mg PO DAILY [facility] Last Admin: 07/03/18 11:04 Dose: Not Given Atorvastatin Calcium (Lipitor -) 20 mg PO HS [facility] Last Admin: 07/02/18 21:37 Dose: 20 mg Collagenase (Santyl -) 1 applic TP DAILY [facility]; Protocol Last Admin: 07/02/18 14:19 Dose: 1 applic Cyanocobalamin (Vitamin B12 -) 1,000 mcg PO DAILY [facility] Last Admin: 07/03/18 11:05 Dose: Not Given Epoetin Ulises (Procrit -) 6,000 unit IVPUSH ONCE ONE Stop: 07/03/18 11:49 Guaifenesin (Robitussin -) 10 ml PO Q8H PRN PRN Reason: COUGH Heparin Sodium (Porcine) (Heparin -) 500 unit IVPUSH ONCE ONE Stop: 07/03/18 11:49 Hydralazine HCl (Apresoline -) 25 mg PO TID [facility] Last Admin: 07/03/18 06:25 Dose: 25 mg Sodium Chloride (Normal Saline -) 250 mls @ 3,000 mls/hr IV PRN PRN PRN Reason: Hypotension during Dialysis Sodium Chloride (Normal Saline -) 1,000 mls @ 42 mls/hr IV ASDIR [facility] Last Admin: 07/03/18 04:50 Dose: Not Given Sodium Chloride (Normal Saline -) 250 mls @ 3,000 mls/hr IV PRN PRN PRN Reason: Hypotension during Dialysis Stop: 07/03/18 11:48 Insulin Aspart (Novolog Vial Sliding Scale -) 1 vial SQ ACHS [facility]; Protocol Last Admin: 07/03/18 06:25 Dose: 7 unit Insulin Detemir (Levemir Vial) 28 units SQ BID@0700,2200 [facility] Last Admin: 07/03/18 10:35 Dose: 28 unit Isosorbide Dinitrate (Isordil -) 5 mg PO BIDISORDIL [facility] Last Admin: 07/03/18 10:31 Dose: Not Given Ondansetron HCl (Zofran Injection) 4 mg IVPUSH Q6H PRN PRN Reason: NAUSEA AND/OR VOMITING Pantoprazole Sodium (Protonix -) 40 mg PO DAILY [facility] Last Admin: 07/03/18 11:05 Dose: Not Given Prednisone (Deltasone -) 20 mg PO BID [facility] Last Admin: 07/03/18 11:04 Dose: Not Given Gen: NAD Heart: RRR Lung: distant breath sounds Abd: soft, nontender Ext: Less edema Laboratory Results - last 24 hr 07/02/18 07/02/18 07/02/18 00:00 16:32 19:46 WBC RBC Hgb Hct MCV MCH MCHC RDW Plt Count MPV Absolute Neuts (auto) Neutrophils % Lymphocytes % Monocytes % Eosinophils % Basophils % Nucleated RBC % Sodium Potassium Chloride Carbon Dioxide Anion Gap BUN Creatinine Est GFR (CKD-EPI)AfAm Est GFR (CKD-EPI)NonAf POC Glucometer 316 421 Random Glucose Calcium Total Bilirubin AST ALT Alkaline Phosphatase Total Protein Albumin Hep Bs Antigen Negative Hep C Ab Diagnostic 0.1 07/02/18 07/03/18 07/03/18 21:11 05:59 06:55 WBC 11.1 H RBC 3.22 L Hgb 8.6 L Hct 26.5 L MCV 82.3 MCH 26.7 MCHC 32.4 RDW 14.3 Plt Count 186 MPV 8.8 Absolute Neuts (auto) 10.1 H Neutrophils % 91.6 H Lymphocytes % 3.4 L D Monocytes % 4.8 Eosinophils % 0.1 D Basophils % 0.1 Nucleated RBC % 0 Sodium Potassium Chloride Carbon Dioxide Anion Gap BUN Creatinine Est GFR (CKD-EPI)AfAm Est GFR (CKD-EPI)NonAf POC Glucometer 385 233 Random Glucose Calcium Total Bilirubin AST ALT Alkaline Phosphatase Total Protein Albumin Hep Bs Antigen Hep C Ab Diagnostic 07/03/18 07/03/18 06:55 11:56 WBC RBC Hgb Hct MCV MCH MCHC RDW Plt Count MPV Absolute Neuts (auto) Neutrophils % Lymphocytes % Monocytes % Eosinophils % Basophils % Nucleated RBC % Sodium 139 Potassium 4.3 Chloride 101 Carbon Dioxide 29 Anion Gap 9 BUN 74 H Creatinine 4.6 H Est GFR (CKD-EPI)AfAm 14.60 Est GFR (CKD-EPI)NonAf 12.60 POC Glucometer 195 Random Glucose 211 H Calcium 8.4 L Total Bilirubin 0.5 AST 25 ALT 32 Alkaline Phosphatase 107 Total Protein 6.0 L Albumin 2.8 L Hep Bs Antigen Hep C Ab Diagnostic A/P Acute on Chronic Systolic Heart Failure Acute on Chronic Renal Failure Pneumonia COPD Exacerbation +Troponins likely Demand Ischemia Pulmonary HTN Obstructive Sleep Apnea h/o L Nephrectomy HTN DM - HD per renal with ultrafiltration - daily weights - continue antibiotics - inhaled bronchodilators - O2 to keep SpO2 >90% - outpt PFTs - DVT prophylaxis Dr Mckeon
--- NOTE | 2018-07-03 12:10 | PN ---
Progress Note (short form) - Note Progress Note: no cp, palps. dizzy. sob better after HD. TELE: SR Current Medications Generic Name Dose Route Start Last Admin Trade Name Freq PRN Reason Stop Dose Admin Acetaminophen 650 mg 07/01/18 23:08 Tylenol - PO Q6H PRN FEVER Albuterol/Ipratropium 1 amp 07/01/18 23:08 Duoneb - NEB Q4H PRN SHORTNESS OF BREATH Albuterol/Ipratropium 1 amp 07/02/18 08:00 07/03/18 08:45 Duoneb - NEB 1 amp RQID [facility] Administration Alprazolam 0.5 mg 07/01/18 23:08 Xanax - PO Q8H PRN ANXIETY Amlodipine Besylate 10 mg 07/02/18 10:00 07/03/18 11:05 Norvasc - PO Not Given DAILY [facility] Aspirin 81 mg 07/02/18 10:00 07/03/18 11:04 Ecotrin - PO Not Given DAILY [facility] Atorvastatin Calcium 20 mg 07/02/18 22:00 07/02/18 21:37 Lipitor - PO 20 mg HS [facility] Administration Collagenase 1 applic 07/02/18 10:00 07/02/18 14:19 Santyl - TP 1 applic DAILY [facility] Administration Protocol Cyanocobalamin 1,000 mcg 07/02/18 10:00 07/03/18 11:05 Vitamin B12 - PO Not Given DAILY [facility] Epoetin Ulises 6,000 unit 07/03/18 11:48 Procrit - IVPUSH 07/03/18 11:49 ONCE ONE Guaifenesin 10 ml 07/01/18 23:08 Robitussin - PO Q8H PRN COUGH Heparin Sodium (Porcine) 500 unit 07/03/18 11:48 Heparin - IVPUSH 07/03/18 11:49 ONCE ONE Hydralazine HCl 25 mg 07/02/18 06:00 07/03/18 06:25 Apresoline - PO 25 mg TID [facility] Administration Sodium Chloride 250 mls @ 3,000 mls/hr 07/02/18 09:00 Normal Saline - IV PRN PRN Hypotension during Dialysis Sodium Chloride 1,000 mls @ 42 mls/hr 07/01/18 23:08 07/03/18 04:50 Normal Saline - IV Not Given ASDIR [facility] Sodium Chloride 250 mls @ 3,000 mls/hr 07/02/18 11:48 Normal Saline - IV 07/03/18 11:48 PRN PRN Hypotension during Dialysis Insulin Aspart 1 vial 07/02/18 07:00 07/03/18 12:07 Novolog Vial Sliding Scale - SQ 5 unit ACHS [facility] Administration Protocol Insulin Detemir 28 units 07/02/18 07:00 07/03/18 10:35 Levemir Vial SQ 28 unit BID@0700,2200 [facility] Administration Isosorbide Dinitrate 5 mg 07/02/18 10:00 07/03/18 10:31 Isordil - PO Not Given BIDISORDIL [facility] Ondansetron HCl 4 mg 07/01/18 23:08 Zofran Injection IVPUSH Q6H PRN NAUSEA AND/OR VOMITING Pantoprazole Sodium 40 mg 07/02/18 10:00 07/03/18 11:05 Protonix - PO Not Given DAILY [facility] Prednisone 20 mg 07/02/18 10:00 07/03/18 11:04 Deltasone - PO Not Given BID [facility] Vital Signs Period Temp Pulse Resp BP Sys/Barrera Pulse Ox Last 24 Hr 97.7 F-98.8 F 72-109 18-22 119-160/46-87 100 Constitutional: Yes: No Distress, Calm Cardiovascular: Yes: Regular Rate and Rhythm. no JVD Respiratory: Yes: Other +rhonchi, no wheeze Gastrointestinal: Yes: Soft Edema: trace le edema bl Neurological: Yes: Alert, Oriented not agitated no jaundice diaphoresis Laboratory Last Values WBC 11.1 K/mm3 (4.0-10.0) H 07/03/18 06:55 RBC 3.22 M/mm3 (4.00-5.60) L 07/03/18 06:55 Hgb 8.6 GM/dL (11.7-16.9) L 07/03/18 06:55 Hct 26.5 % (35.4-49) L 07/03/18 06:55 MCV 82.3 fl (80-96) 07/03/18 06:55 MCH 26.7 pg (25.7-33.7) 07/03/18 06:55 MCHC 32.4 g/dl (32.0-35.9) 07/03/18 06:55 RDW 14.3 % (11.9-15.9) 07/03/18 06:55 Plt Count 186 K/MM3 (134-434) 07/03/18 06:55 MPV 8.8 fl (7.5-11.1) 07/03/18 06:55 Absolute Neuts (auto) 10.1 K/mm3 (1.5-8.0) H 07/03/18 06:55 Neutrophils % 91.6 % (42.8-82.8) H 07/03/18 06:55 Neutrophils % (Manual) 85.9 % (42.8-82.8) H 07/03/18 06:55 Band Neutrophils % 2.0 % 07/03/18 06:55 Lymphocytes % 3.4 % (8-40) L D 07/03/18 06:55 Lymphocytes % (Manual) 5.0 % (8-40) L 07/03/18 06:55 Monocytes % 4.8 % (3.8-10.2) 07/03/18 06:55 Monocytes % (Manual) 7 % (3.8-10.2) 07/03/18 06:55 Eosinophils % 0.1 % (0-4.5) D 07/03/18 06:55 Eosinophils % (Manual) 0.0 % (0-4.5) 07/03/18 06:55 Basophils % 0.1 % (0-2.0) 07/03/18 06:55 Basophils % (Manual) 0.0 % (0-2.0) 07/03/18 06:55 Myelocytes % (Man) 0 % (0-2) D 07/03/18 06:55 Promyelocytes % (Man) 0 % (0-2) 07/03/18 06:55 Blast Cells % (Manual) 0 % (0-0) 07/03/18 06:55 Nucleated RBC % 0 % (0-0) 07/03/18 06:55 Metamyelocytes 0 % (0-2) 07/03/18 06:55 Hypochromia 1+ 07/03/18 06:55 Platelet Estimate Normal 07/03/18 06:55 Platelet Comment Present 06/30/18 05:30 Polychromasia 0 07/03/18 06:55 Poikilocytosis 1+ 07/03/18 06:55 Anisocytosis 1+ 07/03/18 06:55 Microcytosis 1+ 07/03/18 06:55 Macrocytosis 1+ 07/03/18 06:55 Spherocytes 2+ 06/30/18 05:30 Target Cells 1+ 06/29/18 11:30 Ovalocytes 1+ 07/03/18 06:55 [place] Cells 1+ 06/30/18 05:30 Fragmented RBCs 1+ 06/29/18 11:30 ESR 81 mm/hr (0-20) H 06/23/18 05:30 PT with INR 13.50 SEC (9.7-13.0) H 06/12/18 23:30 INR 1.14 (0.83-1.09) H 06/12/18 23:30 PTT (Actin FS) 58.8 SECONDS (25.2-36.5) H 06/16/18 05:30 D-Dimer 1193 ng/ml (0-500) H 06/12/18 12:56 Puncture Site Right radial 06/25/18 11:40 ABG pH 7.33 (7.35-7.45) L 06/25/18 11:40 ABG pCO2 at Pt Temp 39.0 mmHg (35-45) 06/25/18 11:40 ABG pO2 at Pt Temp 99.7 mmHg (80-105) 06/25/18 11:40 ABG HCO3 20.1 mmol/L (22-27) L 06/25/18 11:40 ABG O2 Sat (Measured) 97.1 % (95-98) 06/25/18 11:40 ABG O2 Content 12.8 % vol (15-22) L 06/25/18 11:40 ABG Base Excess -4.8 meq/l (-2-2) L 06/25/18 11:40 Ray Test Positive 06/25/18 11:40 O2 Delivery Device N/c 06/25/18 11:40 Oxygen Flow Rate 4l 06/25/18 11:40 Sodium 139 mmol/L (136-145) 07/03/18 06:55 Potassium 4.3 mmol/L (3.5-5.1) 07/03/18 06:55 Chloride 101 mmol/L (98-107) 07/03/18 06:55 Carbon Dioxide 29 mmol/L (21-32) 07/03/18 06:55 Anion Gap 9 MMOL/L (8-16) 07/03/18 06:55 BUN 74 mg/dL (7-18) H 07/03/18 06:55 Creatinine 4.6 mg/dL (0.55-1.3) H 07/03/18 06:55 Creat Clearance w eGFR 8.26 (>60) 06/25/18 09:20 Est GFR (CKD-EPI)AfAm 14.60 07/03/18 06:55 Est GFR (CKD-EPI)NonAf 12.60 07/03/18 06:55 POC Glucometer 195 UNITS (80-120) 07/03/18 11:56 Random Glucose 211 mg/dL (74-106) H 07/03/18 06:55 Hemoglobin A1c % 6.4 % (4.2-6.3) H 06/14/18 07:55 Calcium 8.4 mg/dL (8.5-10.1) L 07/03/18 06:55 Phosphorus 4.5 mg/dL (2.5-4.9) 06/19/18 08:00 Magnesium 2.3 mg/dL (1.8-2.4) 06/30/18 05:30 Total Bilirubin 0.5 mg/dL (0.2-1) 07/03/18 06:55 AST 25 U/L (15-37) 07/03/18 06:55 ALT 32 U/L (13-61) 07/03/18 06:55 Alkaline Phosphatase 107 U/L (45-117) 07/03/18 06:55 Creatine Kinase 424 U/L (26-308) H 06/22/18 11:40 Creatine Kinase Index 0.8 % (0.0-5.0) 06/22/18 11:40 CK-MB (CK-2) 3.4 ng/mL (0.5-3.6) 06/22/18 11:40 Troponin I 0.12 ng/ml (0.00-0.05) H 06/22/18 11:40 C-Reactive Protein 4.8 MG/DL (0.00-0.3) H 06/23/18 05:30 B-Natriuretic Peptide 6056.8 pg/ml (5-125) H 06/25/18 09:20 Total Protein 6.0 g/dl (6.4-8.2) L 07/03/18 06:55 Albumin 2.8 g/dl (3.4-5.0) L 07/03/18 06:55 Urine Color Yellow 06/24/18 06:00 Urine Appearance Cloudy 06/24/18 06:00 Urine pH 5.0 (5.0-8.0) 06/24/18 06:00 Ur Specific [place] 1.018 (1.010-1.035) 06/24/18 06:00 Urine Protein 4+ (NEGATIVE) H 06/24/18 06:00 Urine Glucose (UA) 3+ (NEGATIVE) H 06/24/18 06:00 Urine Ketones Negative (NEGATIVE) 06/24/18 06:00 Urine Blood 1+ (NEGATIVE) H 06/24/18 06:00 Urine Nitrite Negative (NEGATIVE) 06/24/18 06:00 Urine Bilirubin Negative (NEGATIVE) 06/24/18 06:00 Urine Urobilinogen 0.2 mg/dL (0.2-1.0) 06/24/18 06:00 Ur Leukocyte Esterase Negative (NEGATIVE) 06/24/18 06:00 Urine WBC (Auto) 5 /hpf (0-5) 06/24/18 06:00 Urine RBC (Auto) 1 /hpf (0-4) 06/24/18 06:00 Urine Casts (Auto) 13 /lpf (0-8) 06/24/18 06:00 U Epithel Cells (Auto) 5.8 /HPF (0-5/HPF) 06/24/18 06:00 U Sm Round Cell (Auto) None seen 06/24/18 06:00 Urine Bacteria (Auto) 1.4 /hpf (NEGATIVE) 06/24/18 06:00 Urine Osmolality 363 mosm/kg (300-900) 06/24/18 06:00 Acetone, Qual Negative (NEGATIVE) 06/24/18 22:40 c-ANCA <1:20 titer (Neg:<1:20) 06/23/18 05:30 Proteinase 3 (PR3) <3.5 U/mL (0.0-3.5) 06/23/18 05:30 p-ANCA <1:20 titer (Neg:<1:20) 06/23/18 05:30 Atypical p-ANCA <1:20 titer (Neg:<1:20) 06/23/18 05:30 Myeloperoxidase Ab <9.0 U/mL (0.0-9.0) 06/23/18 05:30 Hep A IgM Ab Confirm Negative (Negative) 06/26/18 19:20 Hepatitis A Ab Total Positive (Negative) H 06/26/18 19:20 Hep Bs Antigen Negative (Negative) 07/02/18 00:00 Hep Bs Antibody Non reactive (.) 06/26/18 19:20 Hep B Core Total Ab Negative (Negative) 06/26/18 19:20 Hep C Ab Diagnostic 0.1 s/co ratio (0.0-0.9) 07/02/18 00:00 HIV 1&2 Antibody Screen Negative 07/02/18 00:00 HIV P24 Antigen Negative 07/02/18 00:00 RSV Rapid Negative (Negative) 06/22/18 15:45 Assessment/Plan 1. Copd, sob: - sob improving, pulm following 2. Elevated troponin, abnormal stress test: - trop 0.47, EKG no ischemic changes, history less consistent with ACS, may be 2 /2 demand in setting of food infection - recent mibi 04/2018 showed EF 30% and small area of mild ischemia. Images reviewed , mild apical ischemia with EF 30% range. - asymptomatic. Angiogram deferred given contrast allergy, was not yet on HD - V/Q scan negative for PE, heparin dc'ed - echo technically difficult, overall at least mildly reduced LV fx - continue aspirin, statin 3. Cardiomyopathy: - EF 30% on mibi - echo confirms at least mild LV dysfx - NSVT on tele - not on bb, monitoring on tele, replete lytes for K>4, Mg >2 - no bb given history of worsening dyspnea and wheezing with metoprolol, no MERRILL/ ARB given CKD -Medical management of underlying possible CAD as above - would consider angiogram when clinically stable, now on HD -continue hydralazine, imdur -vol management with HD 4. ESRD: - renal following, on HD now, s/p permacath
--- NOTE | 2018-07-03 12:59 | DS ---
Physical Examination Vital Signs: Vital Signs Temperature 98 F 07/03/18 09:00 Pulse Rate 98 H 07/03/18 09:00 Respiratory Rate 18 07/03/18 09:00 Blood Pressure 160/70 07/03/18 09:00 O2 Sat by Pulse Oximetry (%) 100 07/03/18 09:00 Constitutional: Yes: Calm Cardiovascular: Yes: Regular Rate and Rhythm, S1, S2 Respiratory: Yes: CTA Bilaterally Gastrointestinal: Yes: Normal Bowel Sounds, Soft Neurological: Yes: Alert, Oriented Labs: CBC, BMP 07/03/18 06:55 07/03/18 06:55 Discharge Summary Reason For Visit: ELEVATED TROPONIN I LEVEL/DYSPNEA ON EXERTION Current Active Problems Bronchopneumonia due to human metapneumovirus (hMPV) (Acute) CHF (congestive heart failure) (Acute) Cardiomyopathy (Acute) Cellulitis (Acute) Chills (without fever) (Acute) D-dimer, elevated (Acute) Dyspnea (Acute) ESRD (end stage renal disease) (Acute) Elevated d-dimer (Acute) Elevated troponin (Acute) Fever (Acute) NSTEMI (non-ST elevated myocardial infarction) (Acute) Pneumonia (Acute) Pulmonary hypertension (Acute) Type 2 diabetes mellitus with diabetic chronic kidney disease (Acute) Wound, open, toe (Acute) Hospital Course: CHIEF COMPLAINT: found to have an elevated troponin with blood work that was checked 3 weeks ago in the outpatient setting, was referred to ER for concern of left big toe open wound/infection as patient reported chills HISTORY OF PRESENT ILLNESS: 63 year old male with history of chronic kidney disease, diabetes mellitus, hyperlipidemia, hypertension, Wilm's tumor s/p left nephrectomy and recent LUE fistula placement 5 weeks ago who presented from Dr. Mckenzie's office for concern for left big toe open wound/infection and an elevated troponin which was checked in the outpatient setting. patient admttied to telemetyry abnormal stress test 04/2018 with efection fracdtion 30% and mild ischemia medical manamgemtn on hydralazine and imdur VQ scan done no PE stop iv heparin CKD with fluid over load: permacath placed and HD done and now SOB improving and will get outpatient HD. toe wound:MRI of toe done no osteomyelitis, LE celllulitis improved got iv abx podiatry saw patient COPD exacerbation on steroids with taper PFT as outpatient Condition: Good - Instructions Diet, Activity, Other Instructions: SEE DR PRIETO FOR LABS AND POTASSIUM CHECK [facility] F/U with dr dangelo outpatient MWF at [facility] pulmonary function test as outpatient Referrals: Flex Mckenzie MD [Primary Care Provider] - 1 Week Gennaro Alfonso DPM [Staff Physician] - 1 Week (at wound care centre) Yusef Hess MD [Staff Physician] - 2 Weeks () Disposition: HOME - Home Medications Comprehensive Discharge Medication List: Ambulatory Orders Aspirin [Ecotrin] 81 mg PO DAILY 09/03/15 Atorvastatin Ca [Lipitor] 20 mg PO DAILY 04/30/18 Fish Oil/Borage/Flax/Om3,6,9 1 [[place] 3-6-9 Complex Softgel] 1 each PO DAILY Amlodipine Besylate [Norvasc -] 10 mg PO DAILY 05/23/18 Hydralazine HCl 10 mg PO TID 05/23/18 Insulin Sliding Scale [Novolog Vial Sliding Scale -] 1 vial SQ ASDIR PRN Collagenase Clostridium Hist. [Santyl -] 1 applic TP DAILY #90 tube 06/18/18 Furosemide [Lasix -] 40 mg PO DAILY #30 tablet 06/18/18 Insulin Detemir [Levemir Flextouch] 100 units SQ BID #4 insuln.pen 06/18/18 Isosorbide Dinitrate [Isordil -] 5 mg PO BIDISORDIL #60 tablet 06/18/18 Sodium Bicarbonate - 325 mg PO BID #30 tablet 06/18/18 Cephalexin [Keflex] 250 mg PO BID #14 capsule MDD 2 06/19/18
--- NOTE | 2018-07-03 15:55 | PN ---
Progress Note, Physician History of Present Illness: Pt seen and examined at bedside. He is awake and alert. He gets shortness of breath with ambulation. - Current Medication List Current Medications: Active Medications Acetaminophen (Tylenol -) 650 mg PO Q6H PRN PRN Reason: FEVER Albuterol/Ipratropium (Duoneb -) 1 amp NEB Q4H PRN PRN Reason: SHORTNESS OF BREATH Albuterol/Ipratropium (Duoneb -) 1 amp NEB RQID [facility] Last Admin: 07/03/18 08:45 Dose: 1 amp Alprazolam (Xanax -) 0.5 mg PO Q8H PRN PRN Reason: ANXIETY Amlodipine Besylate (Norvasc -) 10 mg PO DAILY [facility] Last Admin: 07/03/18 11:05 Dose: Not Given Aspirin (Ecotrin -) 81 mg PO DAILY [facility] Last Admin: 07/03/18 11:04 Dose: Not Given Atorvastatin Calcium (Lipitor -) 20 mg PO HS [facility] Last Admin: 07/02/18 21:37 Dose: 20 mg Collagenase (Santyl -) 1 applic TP DAILY [facility]; Protocol Last Admin: 07/02/18 14:19 Dose: 1 applic Cyanocobalamin (Vitamin B12 -) 1,000 mcg PO DAILY [facility] Last Admin: 07/03/18 11:05 Dose: Not Given Epoetin Ulises (Procrit -) 6,000 unit IVPUSH ONCE ONE Stop: 07/03/18 11:49 Guaifenesin (Robitussin -) 10 ml PO Q8H PRN PRN Reason: COUGH Heparin Sodium (Porcine) (Heparin -) 500 unit IVPUSH ONCE ONE Stop: 07/03/18 11:49 Hydralazine HCl (Apresoline -) 25 mg PO TID [facility] Last Admin: 07/03/18 14:08 Dose: Not Given Sodium Chloride (Normal Saline -) 250 mls @ 3,000 mls/hr IV PRN PRN PRN Reason: Hypotension during Dialysis Sodium Chloride (Normal Saline -) 1,000 mls @ 42 mls/hr IV ASDIR [facility] Last Admin: 07/03/18 04:50 Dose: Not Given Sodium Chloride (Normal Saline -) 250 mls @ 3,000 mls/hr IV PRN PRN PRN Reason: Hypotension during Dialysis Stop: 07/03/18 11:48 Insulin Aspart (Novolog Vial Sliding Scale -) 1 vial SQ [facility]; Protocol Last Admin: 07/03/18 12:07 Dose: 5 unit Insulin Detemir (Levemir Vial) 28 units SQ BID@0700,2200 [facility] Last Admin: 07/03/18 10:35 Dose: 28 unit Isosorbide Dinitrate (Isordil -) 5 mg PO BIDISORDIL [facility] Last Admin: 07/03/18 10:31 Dose: Not Given Ondansetron HCl (Zofran Injection) 4 mg IVPUSH Q6H PRN PRN Reason: NAUSEA AND/OR VOMITING Pantoprazole Sodium (Protonix -) 40 mg PO DAILY [facility] Last Admin: 07/03/18 11:05 Dose: Not Given Prednisone (Deltasone -) 20 mg PO BID [facility] Last Admin: 07/03/18 11:04 Dose: Not Given - Objective Vital Signs: Vital Signs Temperature 98.4 F 07/03/18 15:00 Pulse Rate 98 H 07/03/18 15:00 Respiratory Rate 20 07/03/18 15:00 Blood Pressure 156/84 07/03/18 15:00 O2 Sat by Pulse Oximetry (%) 95 07/03/18 14:03 Constitutional: Yes: Calm Eyes: Yes: Conjunctiva Clear HENT: Yes: Atraumatic Neck: Yes: Supple Cardiovascular: Yes: S1, S2 Respiratory: Yes: CTA Bilaterally Gastrointestinal: Yes: Soft Genitourinary: Yes: WNL Musculoskeletal: Yes: WNL Edema: Yes Edema: LLE: 2+, RLE: 2+ Neurological: Yes: Oriented Psychiatric: Yes: Oriented Labs: CBC, BMP 07/03/18 06:55 07/03/18 06:55 INR, PTT INR 1.14 (0.83-1.09) H 06/12/18 23:30 Problem List - Problems (1) Cellulitis Code(s): L03.90 - CELLULITIS, UNSPECIFIED (2) CKD (chronic kidney disease) Code(s): N18.9 - CHRONIC KIDNEY DISEASE, UNSPECIFIED Assessment/Plan Current Medications Generic Name Dose Route Start Last Admin Trade Name Freq PRN Reason Stop Dose Admin Acetaminophen 650 mg 07/01/18 23:08 Tylenol - PO Q6H PRN FEVER Albuterol/Ipratropium 1 amp 07/01/18 23:08 Duoneb - NEB Q4H PRN SHORTNESS OF BREATH Albuterol/Ipratropium 1 amp 07/02/18 08:00 07/03/18 08:45 Duoneb - NEB 1 amp RQID [facility] Administration Alprazolam 0.5 mg 07/01/18 23:08 Xanax - PO Q8H PRN ANXIETY Amlodipine Besylate 10 mg 07/02/18 10:00 07/03/18 11:05 Norvasc - PO Not Given DAILY [facility] Aspirin 81 mg 07/02/18 10:00 07/03/18 11:04 Ecotrin - PO Not Given DAILY [facility] Atorvastatin Calcium 20 mg 07/02/18 22:00 07/02/18 21:37 Lipitor - PO 20 mg HS [facility] Administration Collagenase 1 applic 07/02/18 10:00 07/02/18 14:19 Santyl - TP 1 applic DAILY [facility] Administration Protocol Cyanocobalamin 1,000 mcg 07/02/18 10:00 07/03/18 11:05 Vitamin B12 - PO Not Given DAILY [facility] Epoetin Ulises 6,000 unit 07/03/18 11:48 Procrit - IVPUSH 07/03/18 11:49 ONCE ONE Guaifenesin 10 ml 07/01/18 23:08 Robitussin - PO Q8H PRN COUGH Heparin Sodium (Porcine) 500 unit 07/03/18 11:48 Heparin - IVPUSH 07/03/18 11:49 ONCE ONE Hydralazine HCl 25 mg 07/02/18 06:00 07/03/18 14:08 Apresoline - PO Not Given TID [facility] Sodium Chloride 250 mls @ 3,000 mls/hr 07/02/18 09:00 Normal Saline - IV PRN PRN Hypotension during Dialysis Sodium Chloride 1,000 mls @ 42 mls/hr 07/01/18 23:08 07/03/18 04:50 Normal Saline - IV Not Given ASDIR [facility] Sodium Chloride 250 mls @ 3,000 mls/hr 07/02/18 11:48 Normal Saline - IV 07/03/18 11:48 PRN PRN Hypotension during Dialysis Insulin Aspart 1 vial 07/02/18 07:00 07/03/18 12:07 Novolog Vial Sliding Scale - SQ 5 unit ACHS [facility] Administration Protocol Insulin Detemir 28 units 07/02/18 07:00 07/03/18 10:35 Levemir Vial SQ 28 unit BID@0700,2200 [facility] Administration Isosorbide Dinitrate 5 mg 07/02/18 10:00 07/03/18 10:31 Isordil - PO Not Given BIDISORDIL [facility] Ondansetron HCl 4 mg 07/01/18 23:08 Zofran Injection IVPUSH Q6H PRN NAUSEA AND/OR VOMITING Pantoprazole Sodium 40 mg 07/02/18 10:00 07/03/18 11:05 Protonix - PO Not Given DAILY [facility] Prednisone 20 mg 07/02/18 10:00 07/03/18 11:04 Deltasone - PO Not Given BID [facility] Impression 1. CKD 2. elevated cardiac enzymes 3. DM 4. chest pain 5. hyperlipidemia 6. HTN 7. hx of Wilms tumor, s/p left nephrectomy 8. hyperkalemia 9. ESRD Plan - HD today - pt has HD set up as outpt - cont epogen - will check iron studies in HD as outpt - renal diet - monitor potassium - fistula has thrill and bruit
[2018-07-03] MEDS ORDERED: SODIUM CHLORIDE 250 ML IV PRN (17:06)
[2018-07-03] MEDS: COLLAGENASE CLOSTRIDIUM HIST. 30 GRAMS TUBE TP SCH (17:11)
[2018-07-03] MEDS ORDERED: EPOETIN ALFA 3,000 UNIT/1 ML ML IVPUSH ONE (17:15)
[2018-07-03] MEDS ORDERED: HEPARIN NA (PORCINE) 5,000 UNITS/ML 1ML VIAL IVPUSH ONE (17:15)
--- NOTE | 2018-07-03 17:28 | OP ---
DATE OF OPERATION: 07/01/2018 PREOPERATIVE DIAGNOSIS: End-stage renal disease. POSTOPERATIVE DIAGNOSIS: End-stage renal disease. PROCEDURE PERFORMED: Insertion of PermCath. SURGEON: Uri Baptiste DO ANESTHESIA: Fractional. BLOOD LOSS: 20 mL. INDICATIONS: The patient is a 63-year-old male who has temporary Shiley catheter in his right neck. He needs to have that changed over to a PermCath. DESCRIPTION OF PROCEDURE: The patient was consented for the procedure, understanding all risks, benefits and alternatives. He was then taken to the operating room. Once in the operating room, the patient was laid on the operating table in the supine manner. The area of the right neck and chest were prepped and draped in a sterile surgical manner. We then went ahead and inserted our 0.035 floppy guidewire through the existing PermCath, and the PermCath was removed. We then changed our gloves for sterility purposes. We then injected 10 mL of lidocaine 1% over the tunnel where the catheter would lie. We then went ahead and took an 11 blade and made a 1-cm incision at the puncture site. We then took a 15 blade and made a 1-cm incision below the clavicle. We then tunneled the PermCath up to the punctate site. We then placed our break-away sheath over the guidewire into the vein under fluoroscopy, and the cannula and guidewire were removed. The catheter was placed inside the sheath, and the sheath was broken away as the catheter was placed inside the vein. The neck of the catheter was nice and smooth. The tip of the catheter was located outside the right atrium. We then afshin back on each port of the catheter, and there was good flow. Heparinized saline was injected; 2000 units of IV heparin was injected. We used 4-0 Biosyn and 2 simple stitches were placed at the puncture site. 3-0 nylon was used to attach the catheter to the skin. Biopatch, Steri-Strips, 4 x 4s and Tegaderm were placed. The patient tolerated the procedure with no complications. The patient was transferred to PACU in stable condition, where a chest x-ray will be ordered. URI BAPTISTE DO [id number]
[2018-07-03] MEDS ORDERED: INSULIN (NOVOLOG) ASPART 100 UNITS/ML 10ML VIAL ONE (21:02)
[2018-07-03] MEDS: ATORVASTATIN CA 20 MG TABLET (FP) PO SCH (21:17)
[2018-07-03 22:49] VITALS: BP 137/71; PULSE 108; TEMP 98.4
[2018-07-04 21:33] VITALS: BMI 36.1
== END 2018-07-03 22:45 | disposition home or self-care (01) | DRG 637 ==
LOC: JER 11:44 → SUPCPDRO 11:44 → JERBED 13:30 → J4W 22:50 → JERBED 06-23 10:32 → J4W 06-23 10:33
PROVIDERS: ADMIT Family Medicine; ATTEND Family Medicine
PROC: 05HM33Z Insertion of Infusion Device into Right Internal Jugular Vein, Percutaneous Approach (ICD-10-PCS; principal; 2018-06-27)
PROC: B513ZZA Fluoroscopy of Right Jugular Veins, Guidance (ICD-10-PCS; 2018-06-27)
PROC: 5A1D70Z Performance of Urinary Filtration, Intermittent, Less than 6 Hours Per Day (ICD-10-PCS; 2018-06-27)
PROC: 05HM33Z Insertion of Infusion Device into Right Internal Jugular Vein, Percutaneous Approach (ICD-10-PCS; 2018-07-01)
PROC: B513ZZA Fluoroscopy of Right Jugular Veins, Guidance (ICD-10-PCS; 2018-07-01)
DX: E11.621 Type 2 diabetes mellitus with foot ulcer (principal); J12.3 Human metapneumovirus pneumonia; I21.4 Non-ST elevation (NSTEMI) myocardial infarction; I50.23 Acute on chronic systolic (congestive) heart failure; I13.2 Hypertensive heart and chronic kidney disease with heart failure and with stage 5 chronic kidney disease, or end stage renal disease; I42.9 Cardiomyopathy, unspecified; L97.529 Non-pressure chronic ulcer of other part of left foot with unspecified severity; N18.6 End stage renal disease; N17.9 Acute kidney failure, unspecified; L03.032 Cellulitis of left toe; E11.21 Type 2 diabetes mellitus with diabetic nephropathy; Z90.5 Acquired absence of kidney; S91.109A Unspecified open wound of unspecified toe(s) without damage to nail, initial encounter; I27.20 Pulmonary hypertension, unspecified; E11.22 Type 2 diabetes mellitus with diabetic chronic kidney disease; E87.5 Hyperkalemia; R79.89 Other specified abnormal findings of blood chemistry; E78.5 Hyperlipidemia, unspecified; Z99.2 Dependence on renal dialysis; Z79.4 Long term (current) use of insulin; G47.33 Obstructive sleep apnea (adult) (pediatric); J44.9 Chronic obstructive pulmonary disease, unspecified; R06.00 Dyspnea, unspecified
CPT/HCPCS: 36415; 36600; 71045-TC-FY; 71046-TC-FY; 71250-TC; 73660-TC-LT-FY; 73718-TC-LT; 76000-TC-FY; 76775-TC; 78582-TC; 80048; 80053; 81003; 82009; 82550; 82553; 82803; 82947; 82962; 83036; 83520; 83735; 83880; 83935; 84100; 84460; 84484; 85025; 85027; 85379; 85610; 85651; 85730; 86140; 86256; 86704; 86706; 86708; 86803; 87040; 87070; 87205; 87340; 87389; 87633; 87807; 87899; 93005; 93010; 93306-TC; 93970-TC; 93971; 94010; 94640; 94760; 94761; 97116-GP; 97162-GP; 99283-25; A9539; A9540; J0885; J1644

== ENCOUNTER 2018-07-10 06:31 | Inpatient (IN) | payer OTHER | END 2018-07-22 17:01 | disposition home health service (06) | LOC: JER 06:31 → JERBED 09:23 → J2W 22:09 ==

== ENCOUNTER 2019-03-08 14:43 | Inpatient (IN) | payer OTHER ==
[2019-03-08 15:00] VITALS: BMI 32.2
[2019-03-08] MEDS ORDERED: ACETAMINOPHEN 1000 MG/100 ML VIAL (NON FORMULARY) IVPB ONE (15:19)
[2019-03-08] MEDS ORDERED: LACTATED RINGERS SOLUTION 1000 ML INFUS.BAG IV ONE (15:19)
--- NOTE | 2019-03-08 15:20 | PDOC ---
History of Present Illness - General Chief Complaint: Injury Stated Complaint: FALL Time Seen by Provider: 03/08/19 15:18 History Source: Patient, Family, Old Records Exam Limitations: Clinical Condition - History of Present Illness Initial Comments: HPI: 63 y/o male presenting to [facility] ER via EMS from home after possible fall in the bathroom. On arrival, the pt is alert but confused and unable or unwilling to explain the events prior to arrival. Pt's is not at bedside. Pt's son arrived, but was not present at home and does not know what transpired. Pt is s/o non-emergent cardiac catheterization last week at [facility] by Dr. Hess. Believed to be taking ASA and Plavix. Son believes his father's last HD run was on Saturday and it was unremarkable. Does not know if his father Retail Team Leader: Dr. Hess Electronic Organ Mechanic: Dr. Mckenzie Medical Hx: - H/o Wilms Tumor - ESRD on HD (M,W,F), last on Saturday - CAD s/p non-emergent PCI at [facility] last Saturday - CHF? Noted in pervious charts, but - HTN - HLD - T1DM Review of Systems: Unable to obtain secondary to altered mental status Physical Examination: Vital signs and nursing notes reviewed. Constitutional- Rigours adult male in no acute distress. Found semi-fowlers on hospital bed. Head- Normocephalic. No obvious external signs of trauma. No Galazra's sign or periorbital bruising. Eyes- PERRL. Sclerae white. Conjunctiva moist and not injected. Ears- No discharge. Hearing grossly intact. Nose- No nasal discharge. Neck- Supple, trachea is midline. No JVD. No midline c-spine tenderness or bony deformity. Cardiovascular / Chest- Regular rate and regular rhythm. No murmur, rubs, clicks , or gallops. Peripheral pulses- radial pulses full. Palpable thrill in left AC. Respiratory- Breathing unlabored. Equal chest rise and fall. Clear to auscultation bilaterally. No stridor, no wheezing, no rhonchi. Gastrointestinal- abdomen is soft, non-tender, non-distended. Neuro- Alert and oriented to person and place, but unable to recall time or recent events. Moving all four extremities spontaneously. No facial asymmetry. No slurred speech. Skin- Warm and dry. Ecchymosis overlying right radial artery at wrist. - No R or L CVA tenderness. Psych- Affect- appropriate. Speech was non-labored, non-pressured. MDM: 63 y/o male presenting with altered mental status w/ possible trauma. Febrile at triage; given acetaminophen. Vitals remarkable for tachycardia without hypotension. Physical exam as described above. HCT unremarkable to ICH. BGL elevated. Suspect likely diabetic HHS secondary to infection. Source unclear - no consolidation on CXR. UA unremarkable for nitrites, leukocyte esterase, or pyuria. Chris blood cultures from 3 sites given recent cardiac PCI. VBG suspicious for metabolic acidosis with respiratory compensation. Initially ordered LR, but held after 200cc secondary to ESRD status. Ordered Vancomycin and Zosyn for broad spectrum abx. Given insulin bolus and started on drip. Will discuss with endocrine and renal services for assistance with fluid management. 08 Mar 2019 16:00 PM Page sent for Dr. Hess through office answering service. Awaiting call back. 08 Mar 2019 17:07 PM Telephone discussion with Dr. Mckenzie. Verbally appraised of the pts HPI, ED course, and current plan of management. No additional information provided. Pt will be 08 Mar 2019 17:41 PM Telephone discussion with resident Dr. Gongora of the ICU service. Verbally appraised of the pts HPI, ED course, and current plan of management. Will evaluate the pt for ICU admission. 08 Mar 2019 17:52 PM Telephone discussion with Dr. Hess. Verbally appraised of the pts HPI, ED course, and current plan of management. Continue ASA and Plavix. 08 Mar 2019 18:30 PM Left message for Dr[address] Mckenzie via his personal cell to discuss updates. Awaiting call back. 08 Mar 2019 18:47 PM Telephone discussion with Dr. Mckenzie. Verbally appraised of the pts HPI, ED course, and current plan of management. Agrees with likely HHS. No further orders requested. 08 Mar 2019 18:55 PM Telephone discussion with Dr. Cornejo, physician covering for Dr. Bess. Verbally appraised of the pts HPI, ED course, and current plan of management. Suggested 2L of fluid over 24hrs. Pt to be admitted to ICU while on insulin drip. In person discussion with ОЛЬГА Guevara. Verbally appraised of the pts HPI, ED course, and current plan of management. Will admit the pt to ICU for Dr. Ruiz. Eduardo Tucker M.D., PGY2 Emergency Medicine Resident Past History - Past Medical History Allergies/Adverse Reactions: Allergies Allergy/AdvReac Type Severity Reaction Status Date / Time Iodinated Contrast Media Allergy Intermediate Hives Verified 03/08/19 15:01 Home Medications: Ambulatory Orders Aspirin [Ecotrin] 81 mg PO DAILY 09/03/15 Fish Oil/Borage/Flax/Om3,6,9 1 [Buchanan 3-6-9 Complex Softgel] 1 each PO DAILY Amlodipine Besylate [Norvasc -] 10 mg PO DAILY #30 tablet 07/03/18 Cyanocobalamin [Vitamin B12 -] 1,000 mcg PO DAILY tablet 07/03/18 Isosorbide Dinitrate [Isordil] 5 mg PO BIDISORDIL #30 tablet MDD 2 07/03/18 Acetaminophen [Tylenol .Regular Strength -] 650 mg PO Q6H PRN tablet 07/22/18 Atorvastatin Ca [Lipitor] 80 mg PO HS #30 tablet 07/22/18 Insulin (Levemir) [Levemir Vial] 40 units SQ BID@0700,2200 #0 units 07/22/18 Pantoprazole Sodium [Protonix -] 40 mg PO DAILY #30 tablet.ec 07/22/18 Anemia: No Asthma: No Cancer: No Cardiac Disorders: No CVA: No COPD: No CHF: No Dementia: No Diabetes: Yes Dialysis: Yes GI Disorders: No Disorders: No HTN: Yes Hypercholesterolemia: Yes Liver Disease: No Seizures: No Thyroid Disease: No - Surgical History Abdominal Surgery: Yes Appendectomy: Yes Cardiac Surgery: No Cholecystectomy: No Lung Surgery: No Neurologic Surgery: No Orthopedic Surgery: Yes (rotator cuff right shoulder) - Immunization History Immunization Up to Date: Yes - Psycho Social/Smoking Cessation Hx Smoking History: Never smoked Have you smoked in the past 12 months: No Number of Cigarettes Smoked Daily: 0 Hx Alcohol Use: No Drug/Substance Use Hx: No Substance Use Type: None Hx Substance Use Treatment: No *Physical Exam - Vital Signs Last Vital Signs Temp Pulse Resp BP Pulse Ox 101.3 F H 130 H 16 146/74 96 03/08/19 14:45 03/08/19 14:45 03/08/19 14:45 03/08/19 14:45 03/08/19 14:45 Vital Signs - Vital Signs #1 Time: 17:19 Blood Pressure: 109/88 BP Location: Right Arm Blood Pressure Position: Sitting Pulse Rate: 123 Respiratory Rate: 22 Repeat PE for Septic Shock - Vital Signs Vital Signs: Vital Signs Temperature 101.3 F H 03/08/19 14:45 Pulse Rate 123 H 03/08/19 17:31 Respiratory Rate 22 H 03/08/19 17:31 Blood Pressure 109/88 03/08/19 17:31 O2 Sat by Pulse Oximetry (%) 96 03/08/19 14:45 I have reviewed the most recent vital signs: Yes - PE CV for Spetic Shock: Regular Rhythm Lungs: Lungs Clear Vascular: Right Radial: 2+ Capillary Refill: <3 seconds Skin exam: Normal Color ED Treatment Course - LABORATORY CBC & Chemistry Diagram: 03/08/19 15:30 03/08/19 15:30 - RADIOLOGY Radiology Studies Ordered: Category Date Time Status CHEST X-RAY PORTABLE* [RAD] Stat Radiology 03/08/19 15:18 Ordered Radiograph Interpretation: HCT: THIS IS A PRELIMINARY REPORT FROM IMAGING FIELD OBSERVER Exam: non contrast CT of the brain Images: 238 Date of service: 2019-03-08 16:37:30 Comparison: None Indication: Found down Impression: 1. No definitive evidence of acute intracranial hemorrhage, intracranial mass effect, hydrocephalus, or depressed calvarial fracture is appreciated. Correlation with clinical presentation is advised. If symptoms or concern persists, correlation with follow up CT or MRI is advised One or more of the following dose reduction techniques were used: automated exposure control, adjustment of the mA and/or kV according to patient size, use of iterative reconstructive technique. THIS DOCUMENT HAS BEEN ELECTRONICALLY SIGNED Osiel Sanders MD 03/08/2019 17:12 EST Discharge - Discharge Information Problems reviewed: Yes Clinical Impression/Diagnosis: Secondary diabetes with hyperglycemia hyperosmolar non-ketotic coma Altered mental status Qualifiers: Altered mental status type: disorientation Qualified Code(s): R41.0 - Disorientation, unspecified Sepsis Qualifiers: Sepsis type: sepsis due to unspecified organism Sepsis acute organ dysfunction status: unspecified Qualified Code(s): A41.9 - Sepsis, unspecified organism Condition: Stable - Admission Yes - Follow up/Referral Referrals: Flex Mckenzie MD [Primary Care Provider] - - Patient Discharge Instructions - Post Discharge Activity
[2019-03-08 16:16] LABS: BASO % 0.4 % (0-2.0); HEMATOCRIT 37.5 % (35.4-49); HEMOGLOBIN 12.5 GM/dL (11.7-16.9); LYMPH % 5.7 % (8-40); MCH 28.3 pg (25.7-33.7); MCHC 33.4 g/dl (32.0-35.9); MEAN CELL VOLUME 84.7 fl (80-96); MEAN PLT VOLUME 8.1 fl (7.5-11.1); MONO % 6.9 % (3.8-10.2); PLATELET COUNT 242 K/MM3 (134-434); RBC 4.42 M/mm3 (4.00-5.60); RDW 13.9 % (11.9-15.9); WHITE BLOOD COUNT 8.9 K/mm3 (4.0-10.0)
[2019-03-08 16:21] LABS: VENOUS PC02 28.3 mmHg (38-52); VENOUS PH 7.38 (7.31-7.41); VENOUS PO2 61.3 mmHg (28-48)
[2019-03-08 16:22] LABS: INR 1.02 (0.83-1.09)
[2019-03-08 16:24] LABS: ACTIVATED PTT 32.4 SECONDS (25.2-36.5)
[2019-03-08] MEDS ORDERED: VANCOMYCIN 1,000 MG in DEXTROSE 5%-WATER - 250 ML IVPB ONE (16:34)
[2019-03-08] MEDS ORDERED: PIPERACILLIN/TAZOB 2.25 GM 2.25 GM in DEXTROSE 5%-WATER - 50 ML IVPB ONE (16:35)
--- NOTE | 2019-03-08 16:43 | PDOC ---
Attending Attestation - Resident Resident Name: Eduardo Tucker - ED Attending Attestation I have performed the following: I have examined & evaluated the patient, The case was reviewed & discussed with the resident, I agree w/resident's findings & plan, Exceptions are as noted - HPI HPI: 03/08/19 16:42 63 yo male found confused at home and BIBA. PMH IDDM,ESRD after surgery for Wilm's tumor, goes to dialysis M W F - Physicial Exam PE: 03/09/19 01:47 63-year-old male found in the bed & alert but poor historian Head normocephalic atraumatic Lungs clear to auscultation bilaterally CVS regular rate and rhythm S1-S2 Abdomen nontender, no guarding Extremities AV fistula has a positive thrill in his left AC Skin warm and dry Neuro moving all extremities, alert but does not recall recent events, no slurred speech - Medical Decision Making 03/08/19 16:44 Concern for sepsis, oral temp 101.3,confused Differential includes CVA,Urosepsis,PNA,nstemi,stemi,DKA plan ekg, trop,cbc,comp,ct scan head,BC,UA,UC,lactic acid, beta hydroxybutarate will start vanco,zosyn Pt did have a recent cardiac cath by Dr Hess 03/08/19 16:45 03/08/19 19:45 [id number] Case discussed with nephrology Dr. Cornejo recommended [address] over [address] Zambrano was contacted and is aware of his ICU placement Dr. Mckenzie, chucking and boring machine operator was also consulted ImPression hyperglycemia hyperosmolar nonketotic coma Admit to ICU CT of the head was negative for any acute intracranial pathology 03/09/19 01:49 03/09/19 01:54
[2019-03-08] MEDS ORDERED: PIPERACILLIN/TAZOB 2.25 GM 2.25 GM/50 ML BAG IVPB ONE (16:59)
[2019-03-08] MEDS ORDERED: VANCOMYCIN 1 GRAM (PRE-DOCKED) 1,000 MG/250 ML BAG IVPB ONE (16:59)
[2019-03-08 17:11] LABS: ALBUMIN 3.5 g/dl (3.4-5.0); ALK PHOS 238 U/L (45-117); ANION GAP 12 MMOL/L (8-16); BILIRUBIN,TOTAL 0.5 mg/dL (0.2-1); BLOOD UREA NITROGEN 43.8 mg/dL (7-18); CALCIUM 9.6 mg/dL (8.5-10.1); CHLORIDE 96 mmol/L (98-107); CO2 18 mmol/L (21-32); CREATININE 5.1 mg/dL (0.55-1.3); POTASSIUM 5.1 mmol/L (3.5-5.1); SGOT/AST 38 U/L (15-37); SGPT/ALT 21 U/L (13-61); SODIUM 126 mmol/L (136-145); TOT PROT 6.8 g/dl (6.4-8.2)
[2019-03-08 17:12] LABS: GLUCOSE,RANDOM 759 mg/dL (74-106)
[2019-03-08] MEDS ORDERED: INSULIN REGULAR HUMAN 100 UNITS/ML *VIAL IVPUSH ONE (17:19)
[2019-03-08] MEDS ORDERED: INSULIN REGULAR 100 UNITS in SODIUM CHLORIDE 99 ML IVPB SCH (17:30)
[2019-03-08 18:23] LABS: EPI CELLS 0.5 /HPF (0-5/HPF); HYALINE CASTS 0 /lpf (0-8); PH,URINE 6.5 (5.0-8.0); URINE APPEARANCE CLEAR; URINE BACTERIA 1.4 /hpf (NEGATIVE); URINE BILIRUBIN NEGATIVE (NEGATIVE); URINE COLOR YELLOW; URINE GLUCOSE (UA) 3+ (NEGATIVE); URINE KETONE TRACE (NEGATIVE); URINE LEUK ESTERASE NEGATIVE (NEGATIVE); URINE NITRITE NEGATIVE (NEGATIVE); URINE PROTEIN 3+ (NEGATIVE); URINE RBC 1 /hpf (0-4); URINE UROBILINOGEN 0.2 mg/dL (0.2-1.0); URINE WBC 0 /hpf (0-5)
[2019-03-08] MEDS ORDERED: LACTATED RINGERS SOLUTION 1,000 ML/1,000 ML INFUS.BAG IV SCH (19:00)
--- NOTE | 2019-03-08 19:08 | CONSULT ---
Consultation: REQUESTING PROVIDER: Dr Eduardo Tucker CONSULT REQUEST: We have been asked to medically evaluate this patient for (ICU monitoring for HHS ) HISTORY OF PRESENT ILLNESS: 63 y/o male with PMH of DM, HTN, HLD, CHF, CAD s/p non-emergent PCI at [facility] last Saturday, Wilms Tumor s/p resection now on HD for ESRD (HD M,W,F) presenting to [facility] ER via EMS from home after possible fall in the bathroom and confusion. Per Son at bedside, pt was found by on the bathroom floor unclear of what transpired prior. Pt was awake but confused and unable to provide a history. His son further mentioned that the patient has not been taking his insulin for 2-3 days for unclear reasons. No recent viral illness, fever/chills, nausea, vomiting or diarrhea. In ED, pt was found to have a fever of 101.3 orally,Nephro consulted and recommended 80cc/hr for 2L over 24hrs, insulin drip. REVIEW OF SYSTEMS: CONSTITUTIONAL: Absent: fever, chills, diaphoresis, generalized weakness, malaise, loss of appetite, weight change HEENT: Absent: rhinorrhea, nasal congestion, throat pain, throat swelling, difficulty swallowing, mouth swelling, ear pain, eye pain, visual changes CARDIOVASCULAR: Absent: chest pain, syncope, palpitations, irregular heart rate, lightheadedness, peripheral edema RESPIRATORY: Absent: cough, shortness of breath, dyspnea with exertion, orthopnea, wheezing, stridor, hemoptysis GASTROINTESTINAL: Absent: abdominal pain, abdominal distension, nausea, vomiting, diarrhea, constipation, melena, hematochezia GENITOURINARY: Absent: dysuria, frequency, urgency, hesitancy, hematuria, flank pain, genital pain MUSCULOSKELETAL: Absent: myalgia, arthralgia, joint swelling, back pain, neck pain SKIN: Absent: rash, itching, pallor HEMATOLOGIC/IMMUNOLOGIC: Absent: easy bleeding, easy bruising, lymphadenopathy, frequent infections ENDOCRINE: Absent: unexplained weight gain, unexplained weight loss, heat intolerance, cold intolerance NEUROLOGIC: Absent: headache, focal weakness or paresthesias, dizziness, unsteady gait, seizure, mental status changes, bladder or bowel incontinence PSYCHIATRIC: Absent: anxiety, depression, suicidal or homicidal ideation, hallucinations. PHYSICAL EXAMINATION Vital Signs - 24 hr 03/08/19 03/08/19 14:45 19:04 Temperature 101.3 F H Pulse Rate 130 H Pulse Rate [#1] 123 H Respiratory 16 Rate Respiratory 22 H Rate [#1] Blood Pressure 146/74 Blood Pressure 109/88 [#1] O2 Sat by Pulse 96 Oximetry (%) GENERAL: Awake, but lethargic. AAOx1 to location. HEAD: Normal with no signs of trauma. EYES: Pupils equal, round and reactive to light, extraocular movements intact, sclera anicteric, conjunctiva clear. No lid lag. EARS, NOSE, THROAT: oropharynx clear without exudates. dry mucous membranes. NECK: Normal range of motion, supple without lymphadenopathy, JVD, or masses. LUNGS: Breath sounds equal, clear to auscultation bilaterally but mild decrease in long bases. No wheezes, and no crackles. No accessory muscle use. HEART: tachy but Regular rate and rhythm, normal S1 and S2 without murmur, rub or gallop. ABDOMEN: Soft, nontender, not distended, normoactive bowel sounds, no guarding, no rebound, no masses. No hepatomegaly or splenomegaly. resection scar from wilms tumor removal. MUSCULOSKELETAL: Normal range of motion at all joints. Right ankle deformity from fracture. No CVA tenderness. UPPER EXTREMITIES: 2+ pulses, warm, well-perfused. No cyanosis. No clubbing. Cap refill <2 seconds. No peripheral edema. LOWER EXTREMITIES: 2+ pulses, warm, well-perfused. No calf tenderness. trace edema. PSYCHIATRIC: lethargic SKIN: Warm, dry, normal turgor, bruise on knees from fall. Laboratory Results - last 24 hr 03/08/19 03/08/19 03/08/19 15:30 15:30 15:30 WBC 8.9 RBC 4.42 Hgb 12.5 Hct 37.5 D MCV 84.7 MCH 28.3 MCHC 33.4 RDW 13.9 D Plt Count 242 D MPV 8.1 Absolute Neuts (auto) 7.7 Neutrophils % 87.0 H D Lymphocytes % 5.7 L D Monocytes % 6.9 Eosinophils % 0.0 D Basophils % 0.4 Nucleated RBC % 0 PT with INR 12.00 INR 1.02 PTT (Actin FS) 32.4 VBG pH POC VBG pCO2 POC VBG pO2 VBG HCO3 VBG O2 Sat (Christofer) VBG Base Excess Sodium Potassium Chloride Carbon Dioxide Anion Gap BUN Creatinine Est GFR (CKD-EPI)AfAm Est GFR (CKD-EPI)NonAf POC Glucometer Random Glucose Lactic Acid Calcium Total Bilirubin AST ALT Alkaline Phosphatase Troponin I Cancelled Total Protein Albumin Beta-Hydroxybutyrate Urine Color Urine Appearance Urine pH Ur Specific Warren Urine Protein Urine Glucose (UA) Urine Ketones Urine Blood Urine Nitrite Urine Bilirubin Urine Urobilinogen Ur Leukocyte Esterase Urine WBC (Auto) Urine RBC (Auto) Urine Casts (Auto) U Epithel Cells (Auto) Urine Bacteria (Auto) Salicylates Acetaminophen Alcohol, Quantitative Influenza A (Rapid) Influenza B (Rapid) 03/08/19 03/08/19 03/08/19 15:30 15:30 15:30 WBC RBC Hgb Hct MCV MCH MCHC RDW Plt Count MPV Absolute Neuts (auto) Neutrophils % Lymphocytes % Monocytes % Eosinophils % Basophils % Nucleated RBC % PT with INR INR PTT (Actin FS) VBG pH 7.38 POC VBG pCO2 28.3 L POC VBG pO2 61.3 H VBG HCO3 16.3 L VBG O2 Sat (Christofer) 91.3 H VBG Base Excess -7.0 L Sodium 126 L Potassium 5.1 Chloride 96 L Carbon Dioxide 18 L Anion Gap 12 BUN 43.8 H Creatinine 5.1 H Est GFR (CKD-EPI)AfAm 12.89 Est GFR (CKD-EPI)NonAf 11.12 POC Glucometer Random Glucose 759 H* Lactic Acid 1.5 Calcium 9.6 Total Bilirubin 0.5 AST 38 H ALT 21 Alkaline Phosphatase 238 H Troponin I 0.12 H Total Protein 6.8 Albumin 3.5 Beta-Hydroxybutyrate 24.1 H Urine Color Urine Appearance Urine pH Ur Specific Warren Urine Protein Urine Glucose (UA) Urine Ketones Urine Blood Urine Nitrite Urine Bilirubin Urine Urobilinogen Ur Leukocyte Esterase Urine WBC (Auto) Urine RBC (Auto) Urine Casts (Auto) U Epithel Cells (Auto) Urine Bacteria (Auto) Salicylates Acetaminophen Alcohol, Quantitative < 3 Influenza A (Rapid) Influenza B (Rapid) 03/08/19 03/08/19 03/08/19 15:30 15:30 15:38 WBC RBC Hgb Hct MCV MCH MCHC RDW Plt Count MPV Absolute Neuts (auto) Neutrophils % Lymphocytes % Monocytes % Eosinophils % Basophils % Nucleated RBC % PT with INR INR PTT (Actin FS) VBG pH POC VBG pCO2 POC VBG pO2 VBG HCO3 VBG O2 Sat (Christofer) VBG Base Excess Sodium Potassium Chloride Carbon Dioxide Anion Gap BUN Creatinine Est GFR (CKD-EPI)AfAm Est GFR (CKD-EPI)NonAf POC Glucometer > 600 Random Glucose Lactic Acid Calcium Total Bilirubin AST ALT Alkaline Phosphatase Troponin I Total Protein Albumin Beta-Hydroxybutyrate Urine Color Urine Appearance Urine pH Ur Specific Warren Urine Protein Urine Glucose (UA) Urine Ketones Urine Blood Urine Nitrite Urine Bilirubin Urine Urobilinogen Ur Leukocyte Esterase Urine WBC (Auto) Urine RBC (Auto) Urine Casts (Auto) U Epithel Cells (Auto) Urine Bacteria (Auto) Salicylates < 1.7 L Acetaminophen <2.0 Alcohol, Quantitative Influenza A (Rapid) Negative Influenza B (Rapid) Negative 03/08/19 03/08/19 17:15 18:28 WBC RBC Hgb Hct MCV MCH MCHC RDW Plt Count MPV Absolute Neuts (auto) Neutrophils % Lymphocytes % Monocytes % Eosinophils % Basophils % Nucleated RBC % PT with INR INR PTT (Actin FS) VBG pH POC VBG pCO2 POC VBG pO2 VBG HCO3 VBG O2 Sat (Christofer) VBG Base Excess Sodium Potassium Chloride Carbon Dioxide Anion Gap BUN Creatinine Est GFR (CKD-EPI)AfAm Est GFR (CKD-EPI)NonAf POC Glucometer > 600 Random Glucose Lactic Acid Calcium Total Bilirubin AST ALT Alkaline Phosphatase Troponin I Total Protein Albumin Beta-Hydroxybutyrate Urine Color Yellow Urine Appearance Clear Urine pH 6.5 D Ur Specific Warren 1.025 Urine Protein 3+ H Urine Glucose (UA) 3+ H Urine Ketones Trace H Urine Blood 3+ H Urine Nitrite Negative Urine Bilirubin Negative Urine Urobilinogen 0.2 Ur Leukocyte Esterase Negative Urine WBC (Auto) 0 Urine RBC (Auto) 1 Urine Casts (Auto) 0 U Epithel Cells (Auto) 0.5 Urine Bacteria (Auto) 1.4 Salicylates Acetaminophen Alcohol, Quantitative Influenza A (Rapid) Influenza B (Rapid) Active Medications Generic Name Dose Route Start Last Admin Trade Name Freq PRN Reason Stop Dose Admin Chlorhexidine Gluconate 1 applic 03/08/19 22:00 Hibiclens For Decolonization - TP HS [facility] Heparin Sodium (Porcine) 5,000 unit 03/08/19 22:00 Heparin - SQ BID [facility] Insulin Human Regular 100 100 mls @ 9.61 mls/hr 03/08/19 17:30 03/08/19 17:59 units/ Sodium Chloride IVPB 0.1 units/kg/hr TITR EDWARD 9.61 mls/hr Administration Protocol 0.1 UNITS/KG/HR Lactated Ringer's 1,000 ml in 1,000 mls @ 80 mls/hr 03/08/19 19:00 Lactated Ringers Solution IV ASDIR EDWARD Mupirocin 1 applic 03/08/19 22:00 Bactroban Ointment (For Decolonization) - NS 03/13/19 21:59 BID EDWARD ASSESSMENT/PLAN: 63 y/o male with PMH of DM, HTN, HLD, ?CHF, CAD s/p non-emergent PCI at [facility] last Saturday, Wilms Tumor s/p resection now on HD for ESRD (HD M,W,F) presenting to [facility] ER via EMS from home after possible fall in the bathroom and confusion; found to be in possible HHS Neuro - Acute metabolic encephalopathy most likely due to hyperglycemic state vs infectious source from left toe wound vs syncope - pt awake but confused and lethargic - utox salicylates <0.3, tylenol <2, EtOH < 3 - Head CT showed no acute pathology - monitor - neuro checks Q2h -f/u echo and carotid US Endo -Initial BG 759-> 646-> 518. K 5.1-> 4.3 . Serum Osm 312. urine osm pending -pt lethargic but arousable -Hydration is mckeon; pt received 250ml in ED,then started on 80cc/h as patient is ESRD. goal of 2L over 24 hrs. -BGM Q1H for now to ensure appropriate correction -BMP Q2H for close monitoring -receiving 20 of Kdur and 10 IV potassium to ensure extracellular potassium remains normal. -insulin drip with 0.1 unit/kg bolus and maintained on 0.1/kg/hr until glucose of 250-300 then will transition to basal insulin once patient is able to tolerate oral intake; will start an hour prior to turning off drip. -Endo Dr Cazares on board, recs appreciated CV - unclear if pt fell due to abnormal metabolic state or syncope. fall unwitnessed and pt unable to give history -tachycardic at 126 bpm, elevated troponin at 0.12 -EKG showed sinus tachycardia, w/ T wave flattening in lateral leads and Q wave. -Hx of HTN, HLD, ?CHF, CAD s/p non-emergent PCI at [place] last saturday -trend troponin; f/u repeat -Cardio Dr Hess consulted and rec to continue ASA and Plavix -echo ordered to assess cardiac function - carotid US ID -Possible sepsis from left to wound -Temp 101.F, tachy in 120s, tachypnic 22. No White count -UA negative, CXR no acute pathology, Cardiomegaly -urine, wound culture and blood cultures sent -empiric treatment with vancomycin and zosyn renal dosing -vanc trough -ID consult Dr Costello placed -wound care Dr Guillen consulted Renal -Bun/Cr 43.8/5.3 -Hx of Wilms Tumor s/p resection now on HD for ESRD (HD M,W,F) -last HD last saturday. poss HD today per Nephro -Renal Dr Cornejo consulted and rec: goal of 2L over 24hrs. recs appreciated -monitor urine output as pt pt still produces urine -Nephro Dr Bess will follow Pulm -No SOB , pt currently maintaining own airway -ABG pH 7.42, pCO2 27.5, pO2 86.8, HCO3 17.6 : mixed metabolic acidosis with respiratory alkalosis -flu A&B negative -Monitor airway -keep sat >90%, supplement Os as needed GI - NO acute complaints - AST 38, ALP 238, t alec 0.5 - monitor FEN -on LR @ 80cc/h -monitor lytes closely - NPO for now PPX DVT : hep subQ Dispo: We will continue to follow the patient. Thank you for this consultative opportunity. Visit type - Emergency Visit Emergency Visit: Yes ED Registration Date: 03/08/19 Care time: The patient presented to the Emergency Department on the above date and was hospitalized for further evaluation of their emergent condition. - New Patient This patient is new to me today: No - Critical Care Critical Care patient: Yes Total Critical Care Time (in minutes): 35 Critical Care Statement: The care of this patient involved high complexity decision making to prevent further life threatening deterioration of the patient's condition and/or to evaluate & treat vital organ system(s) failure or risk of failure. ATTENDING PHYSICIAN STATEMENT I saw and evaluated the patient. I reviewed the resident's note and discussed the case with the resident. I agree with the resident's findings and plan as documented. SUBJECTIVE: OBJECTIVE: ASSESSMENT AND PLAN:
[2019-03-08 19:25] LABS: ARTERIAL BLOOD GAS pH 7.42 (7.35-7.45)
[2019-03-08 19:26] LABS: ARTERIAL BLD GAS O2 SATURATION 96.6 % (95-98); ARTERIAL BLOOD GAS BASE EXCESS -4.9 meq/l (-2-2); ARTERIAL BLOOD GAS PCO2 27.5 mmHg (35-45); ARTERIAL BLOOD GAS PO2 86.8 mmHg (80-100); CARBOXYHEMOGLOBIN 1.1 % (0-2)
[2019-03-08 19:27] LABS: ALLENS TEST POSITIVE
[2019-03-08 19:30] LABS: BLOOD UREA NITROGEN 43.7 mg/dL (7-18); CALCIUM 9.3 mg/dL (8.5-10.1); CREATININE 5.3 mg/dL (0.55-1.3); POTASSIUM 4.3 mmol/L (3.5-5.1)
[2019-03-08] MEDS ORDERED: POTASSIUM CHLORIDE TABS 20 MEQ TABLET.ER (FP) PO ONE ×3 (19:42→19:50)
[2019-03-08] MEDS ORDERED: KCL 10 MEQ IVPB 10 MEQ/100 ML INFUS.BAG IVPB SCH (19:45)
[2019-03-08] MEDS ORDERED: KCL 10 MEQ IVPB 10 MEQ/100 ML INFUS.BAG IVPB ONE (19:50)
[2019-03-08 20:47] LABS: PHOSPHOROUS 3.2 mg/dL (2.5-4.9)
--- NOTE | 2019-03-08 21:26 | HP ---
Admitting History and Physical - Primary Care Physician PCP: Flex Mckenzie - Admission Chief Complaint: s/p Fall, Lethargy History of Present Illness: This is a 63 y/o man with a PMHx of HTN, HLD, T2DM, CHF, CAD s/p PCI ([place], 02/2019), ESRD (M,W.F), h/o Wilms Tumor. Who was BIBA to the ED from home after possible fall in the bathroom. Patient is lethargic unable to provide HPI. Per ED record: On arrival, the pt is alert but confused and unable or unwilling to explain the events prior to arrival. Pt's is not at bedside. Pt's son arrived, but was not present at home and does not know what transpired. Pt is s/o non-emergent cardiac catheterization last week at [facility] by Dr. Hess. Believed to be taking ASA and Plavix. Son believes his father's last HD run was on Saturday and it was unremarkable. History Source: Family Member, Medical Record Limitations to Obtaining History: Clinical Condition - Past Medical History Cardiovascular: Yes: HTN, Hyperlipdemia Renal/: Yes: Renal Inusuff, Other, Hemodialysis, Other Musculoskeletal: Yes: Other (poorly healed right ankle fracture, +grade 1-2 wound plantar left hallux, +hallux limitus left) Endocrine: Yes: Diabetes Mellitus - Past Surgical History Past Surgical History: Yes: Appendectomy, AV Fistula/Graft, Nephrectomy - Smoking History Smoking history: Never smoked Have you smoked in the past 12 months: No Aproximately how many cigarettes per day: 0 - Alcohol/Substance Use Hx Alcohol Use: No - Social History Usual Living Arrangement: Yes: With Spouse ADL: Independent History of Recent Travel: No Home Medications - Allergies Allergies/Adverse Reactions: Allergies Allergy/AdvReac Type Severity Reaction Status Date / Time Iodinated Contrast Media Allergy Intermediate Hives Verified 03/08/19 15:01 - Home Medications Home Medications: Ambulatory Orders Aspirin [Ecotrin] 81 mg PO DAILY 09/03/15 Fish Oil/Borage/Flax/Om3,6,9 1 [[place] 3-6-9 Complex Softgel] 1 each PO DAILY Amlodipine Besylate [Norvasc -] 10 mg PO DAILY #30 tablet 07/03/18 Cyanocobalamin [Vitamin B12 -] 1,000 mcg PO DAILY tablet 07/03/18 Isosorbide Dinitrate [Isordil] 5 mg PO BIDISORDIL #30 tablet MDD 2 07/03/18 Acetaminophen [Tylenol .Regular Strength -] 650 mg PO Q6H PRN tablet 07/22/18 Atorvastatin Ca [Lipitor] 80 mg PO HS #30 tablet 07/22/18 Insulin (Levemir) [Levemir Vial] 40 units SQ BID@0700,2200 #0 units 07/22/18 Pantoprazole Sodium [Protonix -] 40 mg PO DAILY #30 tablet.ec 07/22/18 Family Medical History Family History: Unable to Obtain Review of Systems Unable to obtain ROS, reason: Clinical Condition Physical Examination Vital Signs: Vital Signs Temperature 101.3 F H 03/08/19 14:45 Pulse Rate 112 H 03/08/19 20:52 Respiratory Rate 22 H 03/08/19 20:52 Blood Pressure 147/61 03/08/19 20:52 O2 Sat by Pulse Oximetry (%) 96 03/08/19 20:52 Constitutional: Yes: Obese, Other (Lethargic) Eyes: Yes: Conjunctiva Clear, PERRL HENT: Yes: WNL, Atraumatic, Normocephalic Neck: Yes: WNL, Supple, Trachea Midline Cardiovascular: Yes: Regular Rate and Rhythm Respiratory: Yes: Diminished, On Nasal O2 Gastrointestinal: Yes: Normal Bowel Sounds, Soft, Abdomen, Obese Breast(s): Yes: WNL Musculoskeletal: Yes: WNL Extremities: Yes: WNL, Other (AV fistula- LUE) Peripheral Pulses WNL: Yes Wound/Incision: Yes: Open to air, Draining Neurological: Yes: Lethargy Labs: CBC, BMP 03/08/19 15:30 03/08/19 18:30 Laboratory Results - last 24 hr 03/08/19 03/08/19 03/08/19 15:30 15:30 15:30 WBC 8.9 RBC 4.42 Hgb 12.5 Hct 37.5 D MCV 84.7 MCH 28.3 MCHC 33.4 RDW 13.9 D Plt Count 242 D MPV 8.1 Absolute Neuts (auto) 7.7 Neutrophils % 87.0 H D Lymphocytes % 5.7 L D Monocytes % 6.9 Eosinophils % 0.0 D Basophils % 0.4 Nucleated RBC % 0 PT with INR 12.00 INR 1.02 PTT (Actin FS) 32.4 Anticoagulation Therapy Puncture Site ABG pH ABG pCO2 at Pt Temp ABG pO2 at Pt Temp ABG HCO3 ABG O2 Sat (Measured) ABG O2 Content ABG Base Excess Ray Test VBG pH POC VBG pCO2 POC VBG pO2 VBG HCO3 VBG O2 Sat (Christofer) VBG Base Excess Carboxyhemoglobin Methemoglobin O2 Delivery Device Oxygen Flow Rate Vent Mode Vent Rate Mechanical Rate Pressure Support Vent Sodium Potassium Chloride Carbon Dioxide Anion Gap BUN Creatinine Est GFR (CKD-EPI)AfAm Est GFR (CKD-EPI)NonAf POC Glucometer Random Glucose Serum Osmolality Lactic Acid Calcium Phosphorus Magnesium Total Bilirubin AST ALT Alkaline Phosphatase Creatine Kinase Creatine Kinase Index CK-MB (CK-2) Troponin I Cancelled Total Protein Albumin Beta-Hydroxybutyrate Urine Color Urine Appearance Urine pH Ur Specific Mascot Urine Protein Urine Glucose (UA) Urine Ketones Urine Blood Urine Nitrite Urine Bilirubin Urine Urobilinogen Ur Leukocyte Esterase Urine WBC (Auto) Urine RBC (Auto) Urine Casts (Auto) U Epithel Cells (Auto) Urine Bacteria (Auto) Urine Osmolality Salicylates Opiates Screen Methadone Screen Acetaminophen Barbiturate Screen Phencyclidine Screen Ur Amphetamines Screen MDMA (Ecstasy) Screen Benzodiazepines Screen Cocaine Screen U Marijuana (THC) Screen Alcohol, Quantitative Influenza A (Rapid) Influenza B (Rapid) 03/08/19 03/08/19 03/08/19 15:30 15:30 15:30 WBC RBC Hgb Hct MCV MCH MCHC RDW Plt Count MPV Absolute Neuts (auto) Neutrophils % Lymphocytes % Monocytes % Eosinophils % Basophils % Nucleated RBC % PT with INR INR PTT (Actin FS) Anticoagulation Therapy Puncture Site ABG pH ABG pCO2 at Pt Temp ABG pO2 at Pt Temp ABG HCO3 ABG O2 Sat (Measured) ABG O2 Content ABG Base Excess Ray Test VBG pH 7.38 POC VBG pCO2 28.3 L POC VBG pO2 61.3 H VBG HCO3 16.3 L VBG O2 Sat (Christofer) 91.3 H VBG Base Excess -7.0 L Carboxyhemoglobin Methemoglobin O2 Delivery Device Oxygen Flow Rate Vent Mode Vent Rate Mechanical Rate Pressure Support Vent Sodium 126 L Potassium 5.1 Chloride 96 L Carbon Dioxide 18 L Anion Gap 12 BUN 43.8 H Creatinine 5.1 H Est GFR (CKD-EPI)AfAm 12.89 Est GFR (CKD-EPI)NonAf 11.12 POC Glucometer Random Glucose 759 H* Serum Osmolality Lactic Acid 1.5 Calcium 9.6 Phosphorus Magnesium Total Bilirubin 0.5 AST 38 H ALT 21 Alkaline Phosphatase 238 H Creatine Kinase Creatine Kinase Index CK-MB (CK-2) Troponin I 0.12 H Total Protein 6.8 Albumin 3.5 Beta-Hydroxybutyrate 24.1 H Urine Color Urine Appearance Urine pH Ur Specific M[place]ot Urine Protein Urine Glucose (UA) Urine Ketones Urine Blood Urine Nitrite Urine Bilirubin Urine Urobilinogen Ur Leukocyte Esterase Urine WBC (Auto) Urine RBC (Auto) Urine Casts (Auto) U Epithel Cells (Auto) Urine Bacteria (Auto) Urine Osmolality Salicylates Opiates Screen Methadone Screen Acetaminophen Barbiturate Screen Phencyclidine Screen Ur Amphetamines Screen MDMA (Ecstasy) Screen Benzodiazepines Screen Cocaine Screen U Marijuana (THC) Screen Alcohol, Quantitative < 3 Influenza A (Rapid) Influenza B (Rapid) 03/08/19 03/08/19 03/08/19 15:30 15:30 15:38 WBC RBC Hgb Hct MCV MCH MCHC RDW Plt Count MPV Absolute Neuts (auto) Neutrophils % Lymphocytes % Monocytes % Eosinophils % Basophils % Nucleated RBC % PT with INR INR PTT (Actin FS) Anticoagulation Therapy Puncture Site ABG pH ABG pCO2 at Pt Temp ABG pO2 at Pt Temp ABG HCO3 ABG O2 Sat (Measured) ABG O2 Content ABG Base Excess Ray Test VBG pH POC VBG pCO2 POC VBG pO2 VBG HCO3 VBG O2 Sat (Christofer) VBG Base Excess Carboxyhemoglobin Methemoglobin O2 Delivery Device Oxygen Flow Rate Vent Mode Vent Rate Mechanical Rate Pressure Support Vent Sodium Potassium Chloride Carbon Dioxide Anion Gap BUN Creatinine Est GFR (CKD-EPI)AfAm Est GFR (CKD-EPI)NonAf POC Glucometer > 600 Random Glucose Serum Osmolality Lactic Acid Calcium Phosphorus Magnesium Total Bilirubin AST ALT Alkaline Phosphatase Creatine Kinase Creatine Kinase Index CK-MB (CK-2) Troponin I Total Protein Albumin Beta-Hydroxybutyrate Urine Color Urine Appearance Urine pH Ur Specific M[place]ot Urine Protein Urine Glucose (UA) Urine Ketones Urine Blood Urine Nitrite Urine Bilirubin Urine Urobilinogen Ur Leukocyte Esterase Urine WBC (Auto) Urine RBC (Auto) Urine Casts (Auto) U Epithel Cells (Auto) Urine Bacteria (Auto) Urine Osmolality Salicylates < 1.7 L Opiates Screen Methadone Screen Acetaminophen <2.0 Barbiturate Screen Phencyclidine Screen Ur Amphetamines Screen MDMA (Ecstasy) Screen Benzodiazepines Screen Cocaine Screen U Marijuana (THC) Screen Alcohol, Quantitative Influenza A (Rapid) Negative Influenza B (Rapid) Negative 03/08/19 03/08/19 03/08/19 17:15 17:15 17:44 WBC RBC Hgb Hct MCV MCH MCHC RDW Plt Count MPV Absolute Neuts (auto) Neutrophils % Lymphocytes % Monocytes % Eosinophils % Basophils % Nucleated RBC % PT with INR INR PTT (Actin FS) Anticoagulation Therapy Puncture Site ABG pH ABG pCO2 at Pt Temp ABG pO2 at Pt Temp ABG HCO3 ABG O2 Sat (Measured) ABG O2 Content ABG Base Excess Ray Test VBG pH POC VBG pCO2 POC VBG pO2 VBG HCO3 VBG O2 Sat (Christofer) VBG Base Excess Carboxyhemoglobin Methemoglobin O2 Delivery Device Oxygen Flow Rate Vent Mode Vent Rate Mechanical Rate Pressure Support Vent Sodium Potassium Chloride Carbon Dioxide Anion Gap BUN Creatinine Est GFR (CKD-EPI)AfAm Est GFR (CKD-EPI)NonAf POC Glucometer Random Glucose Serum Osmolality Lactic Acid Calcium Phosphorus Magnesium Total Bilirubin AST ALT Alkaline Phosphatase Creatine Kinase Creatine Kinase Index CK-MB (CK-2) Troponin I Total Protein Albumin Beta-Hydroxybutyrate Urine Color Yellow Urine Appearance Clear Urine pH 6.5 D Ur Specific Mascot 1.025 Urine Protein 3+ H Urine Glucose (UA) 3+ H Urine Ketones Trace H Urine Blood 3+ H Urine Nitrite Negative Urine Bilirubin Negative Urine Urobilinogen 0.2 Ur Leukocyte Esterase Negative Urine WBC (Auto) 0 Urine RBC (Auto) 1 Urine Casts (Auto) 0 U Epithel Cells (Auto) 0.5 Urine Bacteria (Auto) 1.4 Urine Osmolality 419 Salicylates Opiates Screen Negative Methadone Screen Negative Acetaminophen Barbiturate Screen Negative Phencyclidine Screen Negative Ur Amphetamines Screen Negative MDMA (Ecstasy) Screen Negative Benzodiazepines Screen Negative Cocaine Screen Negative U Marijuana (THC) Screen Negative Alcohol, Quantitative Influenza A (Rapid) Influenza B (Rapid) 03/08/19 03/08/19 03/08/19 18:28 18:30 18:50 WBC RBC Hgb Hct MCV MCH MCHC RDW Plt Count MPV Absolute Neuts (auto) Neutrophils % Lymphocytes % Monocytes % Eosinophils % Basophils % Nucleated RBC % PT with INR INR PTT (Actin FS) Anticoagulation Therapy No Result Required. Puncture Site Right radial ABG pH 7.42 ABG pCO2 at Pt Temp 27.5 L ABG pO2 at Pt Temp 86.8 ABG HCO3 17.4 L ABG O2 Sat (Measured) 96.6 ABG O2 Content 23.2 ABG Base Excess -4.9 L Ray Test Positive VBG pH POC VBG pCO2 POC VBG pO2 VBG HCO3 VBG O2 Sat (Christofer) VBG Base Excess Carboxyhemoglobin 1.1 Methemoglobin 1.3 O2 Delivery Device No Result Required. Oxygen Flow Rate No Result Required. Vent Mode No Result Required. Vent Rate No Result Required. Mechanical Rate No Result Required. Pressure Support Vent No Result Required. Sodium 127 L Potassium 4.3 Chloride 97 L Carbon Dioxide 19 L Anion Gap 11 BUN 43.7 H Creatinine 5.3 H Est GFR (CKD-EPI)AfAm 12.31 Est GFR (CKD-EPI)NonAf 10.62 POC Glucometer > 600 Random Glucose 646 H* Serum Osmolality 312 H Lactic Acid Calcium 9.3 Phosphorus 3.2 Magnesium 2.0 Total Bilirubin AST ALT Alkaline Phosphatase Creatine Kinase Creatine Kinase Index CK-MB (CK-2) Troponin I Total Protein Albumin Beta-Hydroxybutyrate Urine Color Urine Appearance Urine pH Ur Specific Mascot Urine Protein Urine Glucose (UA) Urine Ketones Urine Blood Urine Nitrite Urine Bilirubin Urine Urobilinogen Ur Leukocyte Esterase Urine WBC (Auto) Urine RBC (Auto) Urine Casts (Auto) U Epithel Cells (Auto) Urine Bacteria (Auto) Urine Osmolality Salicylates Opiates Screen Methadone Screen Acetaminophen Barbiturate Screen Phencyclidine Screen Ur Amphetamines Screen MDMA (Ecstasy) Screen Benzodiazepines Screen Cocaine Screen U Marijuana (THC) Screen Alcohol, Quantitative Influenza A (Rapid) Influenza B (Rapid) 03/08/19 03/08/19 03/08/19 20:07 22:07 22:13 WBC RBC Hgb Hct MCV MCH MCHC RDW Plt Count MPV Absolute Neuts (auto) Neutrophils % Lymphocytes % Monocytes % Eosinophils % Basophils % Nucleated RBC % PT with INR INR PTT (Actin FS) Anticoagulation Therapy Puncture Site ABG pH ABG pCO2 at Pt Temp ABG pO2 at Pt Temp ABG HCO3 ABG O2 Sat (Measured) ABG O2 Content ABG Base Excess Ray Test VBG pH POC VBG pCO2 POC VBG pO2 VBG HCO3 VBG O2 Sat (Christofer) VBG Base Excess Carboxyhemoglobin Methemoglobin O2 Delivery Device Oxygen Flow Rate Vent Mode Vent Rate Mechanical Rate Pressure Support Vent Sodium 131 L Potassium 4.2 Chloride 100 Carbon Dioxide 19 L Anion Gap 12 BUN 44.2 H Creatinine 5.5 H Est GFR (CKD-EPI)AfAm 11.77 Est GFR (CKD-EPI)NonAf 10.15 POC Glucometer 518 419 Random Glucose 419 H* Serum Osmolality Lactic Acid Calcium 9.7 Phosphorus Magnesium Total Bilirubin AST ALT Alkaline Phosphatase Creatine Kinase 863 H Creatine Kinase Index 0.5 CK-MB (CK-2) 4.6 H Troponin I 0.16 H Total Protein Albumin Beta-Hydroxybutyrate Urine Color Urine Appearance Urine pH Ur Specific Mascot Urine Protein Urine Glucose (UA) Urine Ketones Urine Blood Urine Nitrite Urine Bilirubin Urine Urobilinogen Ur Leukocyte Esterase Urine WBC (Auto) Urine RBC (Auto) Urine Casts (Auto) U Epithel Cells (Auto) Urine Bacteria (Auto) Urine Osmolality Salicylates Opiates Screen Methadone Screen Acetaminophen Barbiturate Screen Phencyclidine Screen Ur Amphetamines Screen MDMA (Ecstasy) Screen Benzodiazepines Screen Cocaine Screen U Marijuana (THC) Screen Alcohol, Quantitative Influenza A (Rapid) Influenza B (Rapid) 03/08/19 03/08/19 03/09/19 23:09 23:58 00:45 WBC RBC Hgb Hct MCV MCH MCHC RDW Plt Count MPV Absolute Neuts (auto) Neutrophils % Lymphocytes % Monocytes % Eosinophils % Basophils % Nucleated RBC % PT with INR INR PTT (Actin FS) Anticoagulation Therapy Puncture Site ABG pH ABG pCO2 at Pt Temp ABG pO2 at Pt Temp ABG HCO3 ABG O2 Sat (Measured) ABG O2 Content ABG Base Excess Ray Test VBG pH POC VBG pCO2 POC VBG pO2 VBG HCO3 VBG O2 Sat (Christofer) VBG Base Excess Carboxyhemoglobin Methemoglobin O2 Delivery Device Oxygen Flow Rate Vent Mode Vent Rate Mechanical Rate Pressure Support Vent Sodium 133 L Potassium 4.3 Chloride 102 Carbon Dioxide 21 Anion Gap 10 BUN 44.8 H Creatinine 5.4 H Est GFR (CKD-EPI)AfAm 12.03 Est GFR (CKD-EPI)NonAf 10.38 POC Glucometer 348 303 Random Glucose 263 H Serum Osmolality Lactic Acid Calcium 9.7 Phosphorus Magnesium Total Bilirubin AST ALT Alkaline Phosphatase Creatine Kinase Creatine Kinase Index CK-MB (CK-2) Troponin I 0.17 H Total Protein Albumin Beta-Hydroxybutyrate Urine Color Urine Appearance Urine pH Ur Specific Mascot Urine Protein Urine Glucose (UA) Urine Ketones Urine Blood Urine Nitrite Urine Bilirubin Urine Urobilinogen Ur Leukocyte Esterase Urine WBC (Auto) Urine RBC (Auto) Urine Casts (Auto) U Epithel Cells (Auto) Urine Bacteria (Auto) Urine Osmolality Salicylates Opiates Screen Methadone Screen Acetaminophen Barbiturate Screen Phencyclidine Screen Ur Amphetamines Screen MDMA (Ecstasy) Screen Benzodiazepines Screen Cocaine Screen U Marijuana (THC) Screen Alcohol, Quantitative Influenza A (Rapid) Influenza B (Rapid) Current Medications Generic Name Dose Route Start Last Admin Trade Name Freq PRN Reason Stop Dose Admin Chlorhexidine Gluconate 1 applic 03/08/19 22:00 03/08/19 23:56 Hibiclens For Decolonization - TP 1 applic HS EDWARD Administration Heparin Sodium (Porcine) 5,000 unit 03/08/19 22:00 03/08/19 23:54 Heparin - SQ 5,000 unit BID EDWARD Administration Insulin Human Regular 100 100 mls @ 9.61 mls/hr 03/08/19 17:30 03/09/19 02:24 units/ Sodium Chloride IVPB 0 units/kg/hr TITR EDWARD 0 mls/hr Titration Protocol 0.1 UNITS/KG/HR Piperacillin Sod/Tazobactam 50 mls @ 100 mls/hr 03/09/19 01:00 Sod 2.25 gm/ Dextrose IVPB Q8H-IV EDWARD Protocol Piperacillin Sod/Tazobactam 50 mls @ 100 mls/hr 03/09/19 01:00 03/09/19 00:13 Sod 2.25 gm/ Dextrose IVPB 03/09/19 18:29 100 mls/hr Q8H-IV EDWARD Administration Protocol Dextrose/Lactated Ringer's 1,000 mls @ 80 mls/hr 03/09/19 02:05 03/09/19 02: 12 D5-Lr - IV 80 mls/hr ASDIR EDWARD Administration Insulin Aspart 1 vial 03/09/19 07:00 Novolog Vial Sliding Scale - SQ ACHS EDWARD Protocol Mupirocin 1 applic 03/08/19 22:00 03/08/19 23:55 Bactroban Ointment (For Decolonization) - NS 03/13/19 21:59 1 applic BID EDWARD Administration Intake & Output 03/06/19 03/07/19 03/08/19 03/09/19 23:59 23:59 23:59 23:59 Intake Total 0 Balance 0 Weight 86.682 kg 96.162 kg Imaging - Results Chest X-ray: Report Reviewed, Image Reviewed Cat Scan: Report Reviewed EKG: Image Reviewed Problem List - Problems (1) Type 2 diabetes mellitus with hyperosmolarity without nonketotic hyperglycemic-hyperosmolar coma ([facility]) Assessment/Plan: Admit ICU Likely secondary to Infection vs Dehydration Appreciate Hide Puller consult Continue cardiac monitoring Continue Insulin Drip IVF Serial BMPs Neurochecks Appreciate Neurology consult Appreciate Endocrinology consult Replete lytes Fall Precautions Aspiration Precautions Code(s): E11.00 - TYPE 2 DIAB W HYPROSM W/O NONKET HYPRGLY-HYPROS COMA ([facility]) (2) Sepsis Assessment/Plan: Likely secondary to Foot Wound qSOFA 2 Sepsis Criteria Met III- T Max 101.2, P 130, BUN 43.8 Blood Cultures-pending Urine Culture-pending Foot wound culture-pending Chest xray reviewed- no infiltrate no effusion no leukocytosis, + neutrophilia, LA-nl Vancomycin, Zosyn given in ED, continue renal dosing Appreciate ID consult Monitor CBC, BMP Maintain MAP >65 Code(s): A41.9 - SEPSIS, UNSPECIFIED ORGANISM Qualifiers: Sepsis type: sepsis due to unspecified organism Sepsis acute organ dysfunction status: unspecified Qualified Code(s): A41.9 - Sepsis, unspecified organism (3) Acute metabolic encephalopathy Assessment/Plan: Likely secondary Infection vs HHS Head CT reviewed- no ICH, no tumor Neurochecks Fall precautions Monitor CBC, BMP Monitor vitals Code(s): G93.41 - METABOLIC ENCEPHALOPATHY (4) Hyponatremia Assessment/Plan: Likely secondary to HHS Corrected Na 137mEq/L Code(s): E87.1 - HYPO-OSMOLALITY AND HYPONATREMIA (5) ESRD (end stage renal disease) on dialysis Assessment/Plan: HD- M,W,F Appreciate Nephrology consult- HD management Avoid nephrotoxic drugs Monitor BMP Code(s): N18.6 - END STAGE RENAL DISEASE; Z99.2 - DEPENDENCE ON RENAL DIALYSIS (6) CHF (congestive heart failure) Assessment/Plan: Chest Xray reviewed EKG reviewed Monitor vitals Code(s): I50.9 - HEART FAILURE, UNSPECIFIED (7) HTN (hypertension) Assessment/Plan: stable Monitor BP Hold meds- due to lethargy Code(s): I10 - ESSENTIAL (PRIMARY) HYPERTENSION Qualifiers: Hypertension type: essential hypertension Qualified Code(s): I10 - Essential (primary) hypertension Assessment/Plan This is a 63 y/o man with a PMHx of HTN, HLD, T2DM, CHF, CAD s/p PCI ([place], 02/2019), ESRD (M,W.F), h/o Wilms Tumor. Admitted to ICU for Hyperosmolar Hyperglycemic State, Sepsis, Acute Metabolic Encephalopathy. for further evaluation of their emergent condition. Plan: See Problem List FEN Replete lytes prn NPO DVT ppx OOB SCDs Heparin SQ Dispo: Requires Inpatient Care Visit type - Emergency Visit Emergency Visit: Yes ED Registration Date: 03/08/19 Care time: The patient presented to the Emergency Department on the above date and was hospitalized for further evaluation of their emergent condition. - New Patient This patient is new to me today: Yes Date on this admission: 03/08/19 - Critical Care Critical Care patient: Yes Total Critical Care Time (in minutes): 35 Critical Care Statement: The care of this patient involved high complexity decision making to prevent further life threatening deterioration of the patient 's condition and/or to evaluate & treat vital organ system(s) failure or risk of failure.
--- NOTE | 2019-03-08 23:23 | CON.NEP ---
Consult Consult Specialty:: Nephrology Referred by:: dr evla Reason for Consultation:: sepsis, hyperosmolar, esrd on hd - History of Present Illness Chief Complaint: gen weakness, sepsis History of Present Illness: esrd pt on hd tiw admitted via er into MICU for management of sepsis and hyperosmolar state with depressed sensorium and orthostatic BP which remains normal supine reportedl still makes urine in usual state of health underlying DM HTN Recent elective PCI and stent placement "last week" h/o left nephrectomy (wilms tumor) - Past Medical History Cardio/Vascular: Yes: HTN, Hyperlipdemia Renal/: Yes: Renal Inusuff, Other, Hemodialysis, Other Musculoskeletal: Yes: Other (poorly healed right ankle fracture, +grade 1-2 wound plantar left hallux, +hallux limitus left) Endocrine: Yes: Diabetes Mellitus - Past Surgical History Past Surgical History: Yes: Appendectomy, AV Fistula/Graft, Nephrectomy - Alcohol/Substance Use Hx Alcohol Use: No - Smoking History Smoking history: Never smoked Have you smoked in the past 12 months: No Aproximately how many cigarettes per day: 0 - Social History ADL: Independent Home Medications - Allergies Allergies/Adverse Reactions: Allergies Allergy/AdvReac Type Severity Reaction Status Date / Time Iodinated Contrast Media Allergy Intermediate Hives Verified 03/08/19 15:01 - Home Medications Home Medications: Ambulatory Orders Aspirin [Ecotrin] 81 mg PO DAILY 09/03/15 Fish Oil/Borage/Flax/Om3,6,9 1 [[place] 3-6-9 Complex Softgel] 1 each PO DAILY Amlodipine Besylate [Norvasc -] 10 mg PO DAILY #30 tablet 07/03/18 Cyanocobalamin [Vitamin B12 -] 1,000 mcg PO DAILY tablet 07/03/18 Isosorbide Dinitrate [Isordil] 5 mg PO BIDISORDIL #30 tablet MDD 2 07/03/18 Acetaminophen [Tylenol .Regular Strength -] 650 mg PO Q6H PRN tablet 07/22/18 Atorvastatin Ca [Lipitor] 80 mg PO HS #30 tablet 07/22/18 Insulin (Levemir) [Levemir Vial] 40 units SQ BID@0700,2200 #0 units 07/22/18 Pantoprazole Sodium [Protonix -] 40 mg PO DAILY #30 tablet.ec 07/22/18 Nephrology Consult - Height Height: 5 ft 8 in - Weight Weight: 212 lb - BMI Body Mass Index (BMI): 32.2 - Lab Results CBC,BMP: CBC, BMP 03/08/19 15:30 Anion Gap: Anion Gap Anion Gap 11 MMOL/L (8-16) 03/08/19 18:30 - Physical Examination Vital Signs: Vital Signs Temperature 101.3 F H 03/08/19 14:45 Pulse Rate 112 H 03/08/19 20:52 Respiratory Rate 22 H 03/08/19 20:52 Blood Pressure 147/61 03/08/19 20:52 O2 Sat by Pulse Oximetry (%) 96 03/08/19 20:52 Constitutional: Yes: Obese Eyes: Yes: WNL HENT: Yes: WNL Neck: Yes: WNL Cardiovascular: Yes: WNL Respiratory: Yes: WNL Gastrointestinal: Yes: WNL Access for Hemodialysis: AV Fistula Assessment/Plan ESRD ON HD TIW Hyperglycemic Hyperosmolar state which presented as c/o generalized weakness and fall at home probably 2/2 above it is unclear if he was taking meds as prescribed but presence of fever may point to an infectious cause started on broad spectrum abx mental status is decreased- r/o sepsis Hemodynamicall stable supine but has orthostatic BP drop labs are notably unremarkable- Metabolic acidosis , no acidemia (r/o ketonemia although anion gap is normal) Hyponatremia is partly due to hyperglycemia phosphorus is normal DM HTN HLD HF CAD/s/p PCI "last saturday" h/o nephrectomy 2/2 wilms tumor REC- fluid resucitation with NS if Hypotensive anticipate he needs 2 to 3 liters over next day monitor serum K and phosphorus and start supplementing K as insulin will cause a decrease in the level monitor bmp frequently to assess the effect of therapy in timely fashion determine the time fram of the PCI and this febrile illness to evaluate any possible relation if no other cause is apparent defer plans for dialysis to tomorrow after re-assessment by nephrology
[2019-03-08] MEDS ORDERED: INSULIN (LEVEMIR) 100 UNITS/ML UNITS SQ ONE (23:42)
[2019-03-08] MEDS ORDERED: DEXTROSE 5%-WATER - 50 ML IVPB ONE (23:44)
[2019-03-08] MEDS ORDERED: PIPERACILLIN/TAZOBACTAM 2.25 GM VIAL IVPB ONE (23:44)
[2019-03-08] MEDS: HEPARIN NA (PORCINE) 5,000 UNITS/ML 1ML VIAL SQ SCH (23:54)
[2019-03-08] MEDS: MUPIROCIN 2% TOPICAL OINTMENT FOR DECOLONIZATION NS SCH (23:55)
[2019-03-08] MEDS: CHLORHEXIDINE GLUCONATE 4% CLEANSER FOR DECOLONIZATION TP SCH (23:56)
[2019-03-08 23:59] LABS: BLOOD UREA NITROGEN 44.2 mg/dL (7-18); CALCIUM 9.7 mg/dL (8.5-10.1); CREATININE 5.5 mg/dL (0.55-1.3); POTASSIUM 4.2 mmol/L (3.5-5.1)
[2019-03-09] MEDS ORDERED: PIPERACILLIN/TAZOB 2.25 GM 2.25 GM in DEXTROSE 5%-WATER - 50 ML IVPB SCH (01:00)
[2019-03-09] MEDS ORDERED: DEXTROSE 5%-LACTATED RINGERS 1,000 ML IV SCH ×3 (01:15→02:05)
[2019-03-09 01:30] LABS: BLOOD UREA NITROGEN 44.8 mg/dL (7-18); CALCIUM 9.7 mg/dL (8.5-10.1); CREATININE 5.4 mg/dL (0.55-1.3); POTASSIUM 4.3 mmol/L (3.5-5.1)
[2019-03-09 02:19] LABS: COCAINE, UR NEGATIVE ng/ml (CUTOFF=300); METHADONE, UR NEGATIVE ng/ml (CUTOFF=300); OPIATES, URI NEGATIVE ng/ml (CUTOFF=300); PHENCYCLIDINE,URINE NEGATIVE ng/ml (CUTOFF=25); URINE AMPHETAMINES NEGATIVE ng/ml (CUTOFF=500); URINE BARBITURATES NEGATIVE ng/ml (CUTOFF=200); URINE BENZODIAZEPINES NEGATIVE ng/ml (CUTOFF=200)
[2019-03-09 04:19] LABS: BLOOD UREA NITROGEN 44.9 mg/dL (7-18); CALCIUM 9.6 mg/dL (8.5-10.1); CREATININE 5.5 mg/dL (0.55-1.3); POTASSIUM 4.5 mmol/L (3.5-5.1)
[2019-03-09] MEDS: INSULIN SLIDING SCALE (NOVOLOG) 1 VIAL SQ SCH ×4 (06:00→21:30)
[2019-03-09 06:57] LABS: BASO % 0.7 % (0-2.0); EOS % 0.5 % (0-4.5); HEMOGLOBIN 11.8 GM/dL (11.7-16.9); LYMPH % 10.7 % (8-40); MCH 28.5 pg (25.7-33.7); MCHC 34.7 g/dl (32.0-35.9); MEAN CELL VOLUME 82.2 fl (80-96); MEAN PLT VOLUME 7.6 fl (7.5-11.1); MONO % 9.2 % (3.8-10.2); NEUT % 78.9 % (42.8-82.8); PLATELET COUNT 234 K/MM3 (134-434); RBC 4.13 M/mm3 (4.00-5.60); RDW 13.8 % (11.9-15.9)
[2019-03-09 07:05] LABS: INR 1.06 (0.83-1.09); PROTHROMBIN TIME (PATIENT) 12.5 SEC (9.7-13.0)
[2019-03-09 07:06] LABS: ACTIVATED PTT 29.8 SECONDS (25.2-36.5)
[2019-03-09 07:35] LABS: ALBUMIN 3.1 g/dl (3.4-5.0); BILIRUBIN,TOTAL 0.7 mg/dL (0.2-1); BLOOD UREA NITROGEN 45.6 mg/dL (7-18); CALCIUM 9.4 mg/dL (8.5-10.1); CREATININE 5.4 mg/dL (0.55-1.3); MAGNESIUM 2.1 mg/dL (1.8-2.4); PHOSPHOROUS 4.2 mg/dL (2.5-4.9); POTASSIUM 4.8 mmol/L (3.5-5.1); TOT PROT 6.2 g/dl (6.4-8.2)
--- NOTE | 2019-03-09 07:50 | PN ---
Progress Note, Physician Chief Complaint: ASLEEP EVENTS REVIEWED COMFORTABLE IN BED - Current Medication List Current Medications: Active Medications Chlorhexidine Gluconate (Hibiclens For Decolonization -) 1 applic TP HS [facility] Last Admin: 03/08/19 23:56 Dose: 1 applic Heparin Sodium (Porcine) (Heparin -) 5,000 unit SQ BID [facility] Last Admin: 03/08/19 23:54 Dose: 5,000 unit Insulin Human Regular 100 (units/ Sodium Chloride) 100 mls @ 9.61 mls/hr IVPB TITR [facility]; Protocol Last Titration: 03/09/19 02:24 Dose: 0 units/kg/hr, 0 mls/hr Piperacillin Sod/Tazobactam (Sod 2.25 gm/ Dextrose) 50 mls @ 100 mls/hr IVPB Q8H-IV [facility]; Protocol Piperacillin Sod/Tazobactam (Sod 2.25 gm/ Dextrose) 50 mls @ 100 mls/hr IVPB Q8H-IV [facility]; Protocol Stop: 03/09/19 18:29 Last Admin: 03/09/19 00:13 Dose: 100 mls/hr Dextrose/Lactated Ringer's (D5-Lr -) 1,000 mls @ 80 mls/hr IV ASDIR [facility] Last Admin: 03/09/19 02:12 Dose: 80 mls/hr Insulin Aspart (Novolog Vial Sliding Scale -) 1 vial SQ ACHS [facility]; Protocol Last Admin: 03/09/19 06:00 Dose: 4 units Mupirocin (Bactroban Ointment (For Decolonization) -) 1 applic NS BID [facility] Stop: 03/13/19 21:59 Last Admin: 03/08/19 23:55 Dose: 1 applic - Objective Vital Signs: Vital Signs Temperature 98.7 F 03/09/19 06:00 Pulse Rate 105 H 03/09/19 06:00 Respiratory Rate 19 03/09/19 06:00 Blood Pressure 136/78 03/09/19 06:00 O2 Sat by Pulse Oximetry (%) 96 03/09/19 05:49 Constitutional: Yes: Other Cardiovascular: Yes: Regular Rate and Rhythm Respiratory: Yes: WNL Gastrointestinal: Yes: Soft Genitourinary: Yes: Other Extremities: Yes: Other (LEFT TOE ULCER) Integumentary: Yes: Pressure Ulcer (LEFT TOE) Wound/Incision: Yes: Dressing Removed Neurological: Yes: Loss of Sensation, Pre-Existing Deficit ...Motor Strength: LLE Labs: CBC, BMP 03/09/19 05:55 03/09/19 05:55 INR, PTT INR 1.06 (0.83-1.09) 03/09/19 05:55 Problem List - Problems (1) Acute metabolic encephalopathy Code(s): G93.41 - METABOLIC ENCEPHALOPATHY (2) Altered mental status Code(s): R41.82 - ALTERED MENTAL STATUS, UNSPECIFIED Qualifiers: Altered mental status type: disorientation Qualified Code(s): R41.0 - Disorientation, unspecified (3) Hyponatremia Code(s): E87.1 - HYPO-OSMOLALITY AND HYPONATREMIA (4) Secondary diabetes with hyperglycemia hyperosmolar non-ketotic coma Code(s): E13.01 - OTH DIABETES MELLITUS WITH HYPEROSMOLARITY WITH COMA (5) Sepsis Code(s): A41.9 - SEPSIS, UNSPECIFIED ORGANISM Qualifiers: Sepsis type: sepsis due to unspecified organism Sepsis acute organ dysfunction status: unspecified Qualified Code(s): A41.9 - Sepsis, unspecified organism (6) Cellulitis Code(s): L03.90 - CELLULITIS, UNSPECIFIED (7) ESRD (end stage renal disease) Code(s): N18.6 - END STAGE RENAL DISEASE (8) Type 2 diabetes mellitus with diabetic chronic kidney disease Code(s): E11.22 - TYPE 2 DIABETES MELLITUS W DIABETIC CHRONIC KIDNEY DISEASE (9) Wound, open, toe Code(s): S91.109A - UNSP OPEN WOUND OF UNSP TOE(S) W/O DAMAGE TO NAIL, INIT Assessment/Plan NEPHROLOGY EVAL APPRECIATED WILL NEED PODIATRY FOR LEFT TOE ULCER DIABETIC TOE ULCER WOUND CARE AND VASC SX MONITORING BGM AT THIS STABLE CHECK A1C HD PER RENAL IVF ICU MONITORING
--- NOTE | 2019-03-09 08:43 | PN ---
Progress Note (short form) - Note Progress Note: ID consult dictated imp/reccd 63 yo man with DM, esrd/hd via LUE AVF, history of catheter related MSSA bacteremia 06/2018 treated with 6 weeks iv antibiotics now admitted 03/08 with lethargy and confusion, fever ?fall at home blood glucose elevated 759 at admission he has no memory of events leading to admission reports going to HD on Saturday - no issues denies fever/chills no headaches oriented to person place year fever-?source acute metabolic encephalopathy with bs greater then 700 r/o infectious cause of his hyperglycemia and confusion which appears resolving with correction of his glucose-?bacteremia secondary to dialysis received vanco/zosyn in ED has dry callous on left big toe- no drainage or erythema continue zosyn check vancomycin trough-12, will redose esrd/hd- dialysis M/W/F diabetes/hyperglycemia Problem List - Problems (1) Fever Code(s): R50.9 - FEVER, UNSPECIFIED (2) Acute metabolic encephalopathy Code(s): G93.41 - METABOLIC ENCEPHALOPATHY (3) ESRD (end stage renal disease) on dialysis Code(s): N18.6 - END STAGE RENAL DISEASE; Z99.2 - DEPENDENCE ON RENAL DIALYSIS (4) Diabetes Code(s): E11.9 - TYPE 2 DIABETES MELLITUS WITHOUT COMPLICATIONS Qualifiers: Diabetes mellitus type: type 1 Diabetes mellitus complication status: with skin complications Diabetes mellitus complication detail: with foot ulcer Qualified Code(s): E10.621 - Type 1 diabetes mellitus with foot ulcer
--- NOTE | 2019-03-09 09:24 | CONSULT ---
Consult Consult Specialty:: Podiatry Reason for Consultation:: Wound left big toe. - Past Medical History Cardio/Vascular: Yes: HTN, Hyperlipdemia Renal/: Yes: Renal Inusuff, Other, Hemodialysis, Other Musculoskeletal: Yes: Other (poorly healed right ankle fracture, +grade 1-2 wound plantar left hallux, +hallux limitus left) Endocrine: Yes: Diabetes Mellitus - Past Surgical History Past Surgical History: Yes: Appendectomy, AV Fistula/Graft, Nephrectomy - Alcohol/Substance Use Hx Alcohol Use: No - Smoking History Smoking history: Never smoked Have you smoked in the past 12 months: No Aproximately how many cigarettes per day: 0 - Social History ADL: Independent History of Recent Travel: No Home Medications - Allergies Allergies/Adverse Reactions: Allergies Allergy/AdvReac Type Severity Reaction Status Date / Time Iodinated Contrast Media Allergy Intermediate Hives Verified 03/08/19 15:01 - Home Medications Home Medications: Ambulatory Orders Aspirin [Ecotrin] 81 mg PO DAILY 09/03/15 Fish Oil/Borage/Flax/Om3,6,9 1 [[place] 3-6-9 Complex Softgel] 1 each PO DAILY Amlodipine Besylate [Norvasc -] 10 mg PO DAILY #30 tablet 07/03/18 Cyanocobalamin [Vitamin B12 -] 1,000 mcg PO DAILY tablet 07/03/18 Isosorbide Dinitrate [Isordil] 5 mg PO BIDISORDIL #30 tablet MDD 2 07/03/18 Acetaminophen [Tylenol .Regular Strength -] 650 mg PO Q6H PRN tablet 07/22/18 Atorvastatin Ca [Lipitor] 80 mg PO HS #30 tablet 07/22/18 Insulin (Levemir) [Levemir Vial] 40 units SQ BID@0700,2200 #0 units 07/22/18 Pantoprazole Sodium [Protonix -] 40 mg PO DAILY #30 tablet.ec 07/22/18 Physical Exam Vital Signs: Vital Signs Temperature 98.7 F 03/09/19 06:00 Pulse Rate 112 H 03/09/19 09:20 Respiratory Rate 18 03/09/19 08:00 Blood Pressure 153/78 03/09/19 08:00 O2 Sat by Pulse Oximetry (%) 97 03/09/19 09:20 Extremities: Yes: Other (+necrotic wound left hallux, -drainage, -mal odor, - tender) Labs: CBC, BMP 03/09/19 05:55 03/09/19 05:55 Assessment/Plan om? grade 3 wound left hallux foot xray left. Santyl to wound left hallux. Willl follow. Vascular consult left lower extremity eval.
[2019-03-09] MEDS ORDERED: PIPERACILLIN/TAZOBACTAM 2.25 GM VIAL IVPB ONE ×2 (09:33→17:00)
[2019-03-09] MEDS ORDERED: DEXTROSE 5%-WATER - 50 ML IVPB ONE ×2 (09:33→17:00)
[2019-03-09] MEDS: PIPERACILLIN/TAZOB 2.25 GM 2.25 GM in DEXTROSE 5%-WATER - 50 ML IVPB SCH ×2 (09:36→17:36)
[2019-03-09] MEDS: HEPARIN NA (PORCINE) 5,000 UNITS/ML 1ML VIAL SQ SCH ×2 (09:36→21:29)
[2019-03-09] MEDS: MUPIROCIN 2% TOPICAL OINTMENT FOR DECOLONIZATION NS SCH ×2 (09:37→21:29)
[2019-03-09] MEDS ORDERED: CLOPIDOGREL BISULFATE 75 MG TABLET (FP) PO SCH (10:00)
[2019-03-09] MEDS ORDERED: ASPIRIN 81 MG CHEWABLE TABLETS PO SCH (10:00)
--- NOTE | 2019-03-09 10:01 | EKG ---
Test Reason : Blood Pressure : / mmHG Vent. Rate : 126 BPM Atrial Rate : 126 BPM P-R Int : 174 ms QRS Dur : 080 ms QT Int : 288 ms P-R-T Axes : 057 035 008 degrees QTc Int : 417 ms SINUS TACHYCARDIA POSSIBLE LEFT ATRIAL ENLARGEMENT ANTERIOR INFARCT , AGE UNDETERMINED ABNORMAL ECG WHEN COMPARED WITH ECG OF 12-JUL-2018 13:28, T WAVE VARIATION Confirmed by EMPERATRIZ GUTIERREZ MD ([id number]) on 03/09/2019 10:01:25 AM Referred By: Confirmed By:EMPERATRIZ GUTIERREZ MD
--- NOTE | 2019-03-09 10:44 | CONS ---
INFECTIOUS DISEASE CONSULTATION DATE OF CONSULTATION: DATE OF DICTATION: 03/09/2019 REQUESTING PHYSICIAN: Michelle Ruiz MD HISTORY: This is a 63-year-old man past medical history of end-stage renal disease. He is on hemodialysis Saturday, Saturday, and Saturday. He has a history of a chronic left toe ulcer. He has a history of end-stage renal disease. He is on dialysis. He is status post a recent cardiac catheterization he says several weeks ago. He was brought in yesterday by his son with apparently a possible fall at home. He had lethargy and confusion. He was found to have a blood glucose of over 700. He is currently awake and alert. He does not have any memory of the last several days. He does report he gets dialysis Saturday, Saturday, Saturday and did attend dialysis on Saturday without any difficulty. After that, he does not seem to remember what happened. He is alert and oriented to person, place, and year, and he is hungry. He denies any headache. He denies any sore throat. He has no cough. He has no chest pain, abdominal pain, nausea, vomiting, diarrhea, or dysuria. PAST MEDICAL HISTORY: Notable for CKD, diabetes, end-stage renal disease on dialysis, hyperlipidemia, hypertension, Wilms tumor, osteomyelitis of his 1st big toe in 2015, which was treated with ceftriaxone for 6 weeks. More recently in July of this year, he had a methicillin-sensitive Staph aureus bacteremia felt catheter related. The catheter was removed, and he completed a total of 42 days of antibiotics. SURGICAL HISTORY: Notable nephrectomy for the Wilms tumor, left AV fistula, prior PermCath that has been removed, exploratory laparotomy with small-bowel obstruction x2, right ankle fracture, and right shoulder rotator cuff repair. SOCIAL HISTORY: He lives at home with his son. There is no history of cigarette, alcohol, or substance use. FAMILY HISTORY: Unremarkable. ALLERGIES: He is allergic to IODINATED CONTRAST MEDIA. MEDICATIONS: At home include Protonix, Isordil, insulin, omega-3, B12, Lipitor, Ecotrin, and Norvasc. PHYSICAL EXAMINATION: General: He is awake and alert. Vital Signs: He had a fever of 101.3 on admission, current temperature is 98.7, pulse of 112, blood pressure 153/78, respiratory rate is 18, saturating 95% on room air. HEENT: He is normocephalic. His eyes are anicteric. He has no pharyngitis. Neck: Supple. He has no meningeal signs. Lungs: Clear to auscultation. Heart: Regular rate and rhythm. His AV fistula is without any erythema. Abdomen: Soft, nontender. He has a well-healed midline scar. Extremities: Notable for the ulcer on his big toe, which is a dry callus with no edema. DIAGNOSTIC DATA: White count is 10, hemoglobin 11.8, platelets are 234, BUN 45, creatinine 5.4. AST 60, alkaline phosphatase 190. His urinalysis has 0 white cells. His random vancomycin this morning is 12. Influenza screen is negative. Chest x-ray shows no evidence of acute infiltrate, and urine and blood cultures are pending. In summary, this is a 63-year-old man who was admitted from home with: 1. Lethargy and confusion and fever. Blood glucose of 759 at admission. He has no headaches, and he has no nuchal rigidity. His alertness appears improved. Would rule out infectious causes of his hyperglycemia and confusion, which appears to be resolving. He received vancomycin and Zosyn in the ER. Would continue the Zosyn. Check vancomycin trough, which is 12. We will re-dose and follow up cultures. 2. End-stage renal disease, hemodialysis. Follow with Nephrology. 3. Diabetes. Sugars appear to be improving. Further recommendations to follow. QUYEN OLIVIA M.D. [id number]
--- NOTE | 2019-03-09 11:06 | PN ---
Progress Note (short form) - Note Progress Note: VASCULAR SURGERY - Uri Guillen Called to evaluate 63 yo man w/ PMHx of DM, ESRD on HD via LUE AVF. Admitted w/ lethargy, confusion, fever and hyperglycemia (759 on admit). Currently in ICU resting comfortably without complaint. Denies n/v/f/c, CP, SOB or VAZQUEZ. Last Vital Signs Temp Pulse Resp BP Pulse Ox 98.3 F 108 H 17 130/71 97 03/09/19 10:00 03/09/19 10:00 03/09/19 10:00 03/09/19 10:00 03/09/19 09:20 CBC, BMP 03/09/19 05:55 03/09/19 05:55 INR, PTT INR 1.06 (0.83-1.09) 03/09/19 05:55 Urine Test Results Urine Color Yellow 03/08/19 17:15 Urine Appearance Clear 03/08/19 17:15 Urine pH 6.5 (5.0-8.0) D 03/08/19 17:15 Ur Specific Innis 1.025 (1.010-1.035) 03/08/19 17:15 Urine Protein 3+ (NEGATIVE) H 03/08/19 17:15 Urine Glucose (UA) 3+ (NEGATIVE) H 03/08/19 17:15 Urine Ketones Trace (NEGATIVE) H 03/08/19 17:15 Urine Blood 3+ (NEGATIVE) H 03/08/19 17:15 Urine Nitrite Negative (NEGATIVE) 03/08/19 17:15 Urine Bilirubin Negative (NEGATIVE) 03/08/19 17:15 Ur Leukocyte Esterase Negative (NEGATIVE) 03/08/19 17:15 Gen: nad RLE: poorly healed right ankle fracture, + DP/PT LLE: +grade 1-2 wound plantar to left hallux, not malodorous. dry callous. no erythema. + DP/PT A/P This is a 63 y/o man with a PMHx of HTN, HLD, T2DM, CHF, CAD s/p PCI ([place], 02/2019), ESRD (M,W.F), h/o Wilms Tumor. Admitted to ICU for Hyperosmolar Hyperglycemic State, Sepsis, Acute Metabolic Encephalopathy. patient has palpable DP and PT bilat. Type 2 diabetes mellitus with hyperosmolarity without nonketotic hyperglycemic- hyperosmolar coma ([facility]) Cont ICU monitoring Insulin Drip Protocol IVF Serial BMPs Neurochecks Recommend Endocrinology Consult Replete elytes PRN Left Hallux Wound Local wound care as per Podiatry No need for vascular intervention as patients feet are warm and palpable DP/PT pulses. ESRD (end stage renal disease) on dialysis HD as per patient's schedule -- Nephrology consult- HD management Avoid nephrotoxic drugs HTN (hypertension) stable Monitor BP Hold meds- due to lethargy
[2019-03-09] MEDS ORDERED: COLLAGENASE CLOSTRIDIUM HIST. 30 GRAMS TUBE TP SCH (11:15)
--- NOTE | 2019-03-09 11:17 | CON.CARD ---
Cardiology Consult (text) - Consultation Consultation Note: Chief Complaint: ams History of Present Illness: 63M h/o CKD, DM, HLD, HTN, wilm's tumor s/p nephrectomy, esrd on hd, chf, cad s/ p pci (most recent was earlier this month, elective pci for chronic cad) here with ams. No cp sob palps dizzy loc pnd orthopnea le edema. Treating for sepsis in icu. - Past Medical History Cardio/Vascular: Yes: HTN, Hyperlipdemia Renal/: Yes: Renal Inusuff, Other (wilms tumor) Musculoskeletal: Yes: Other (poorly healed right ankle fracture, +grade 1-2 wound plantar left hallux, +hallux limitus left) Endocrine: Yes: Diabetes Mellitus - Past Surgical History Past Surgical History: Yes: Appendectomy, AV Fistula/Graft, Nephrectomy - Alcohol/Substance Use Hx Alcohol Use: No - Smoking History Smoking history: Never smoked Have you smoked in the past 12 months: No Aproximately how many cigarettes per day: 0 - Social History ADL: Independent Home Medications - Allergies Allergies/Adverse Reactions: Allergies Allergy/AdvReac Type Severity Reaction Status Date / Time Iodinated Contrast Media Allergy Intermediate Hives Verified 03/08/19 15:01 Home Medications Medication Instructions Recorded Aspirin [Ecotrin] 81 mg PO DAILY 09/03/15 Fish Oil/Borage/Flax/Om3,6,9 1 1 each PO DAILY 04/30/18 [[employer] 3-6-9 Complex Softgel] Amlodipine Besylate [Norvasc -] 10 mg PO DAILY #30 tablet 07/03/18 Cyanocobalamin [Vitamin B12 -] 1,000 mcg PO DAILY tablet 07/03/18 Isosorbide Dinitrate [Isordil] 5 mg PO BIDISORDIL #30 tablet MDD 2 07/03/18 Acetaminophen [Tylenol .Regular 650 mg PO Q6H PRN tablet 07/22/18 Strength -] Atorvastatin Ca [Lipitor] 80 mg PO HS #30 tablet 07/22/18 Insulin (Levemir) [Levemir Vial] 40 units SQ BID@0700,2200 #0 units 07/22/18 Pantoprazole Sodium [Protonix -] 40 mg PO DAILY #30 tablet.ec 07/22/18 Family Disease History - Family Disease History Family History: Unremarkable Review of Systems per hpi; all others nl Vital Signs Period Temp Pulse Resp BP Sys/Barrera Pulse Ox Last 24 Hr 98.3 F-101.3 F 95-130 16-22 109-153/61-88 94-97 Constitutional: Yes: Well Nourished, No Distress Eyes: Yes: Conjunctiva Clear, EOM Intact HENT: Yes: Atraumatic, Normocephalic Neck: Yes: Supple, Trachea Midline Respiratory: Yes: Regular, CTA Bilaterally Gastrointestinal: Yes: Normal Bowel Sounds, Soft Cardiovascular: Yes: Regular Rate and Rhythm JVD: No Carotid Bruit: No PMI: Non-Displaced Heart Sounds: Yes: S1, S2 Murmur: No: Systolic Murmur Musculoskeletal: No: Back Pain Extremities: No: Cold Edema: no Peripheral Pulses: 1+ Left Doralis Pedis, 1+ Right Dorsalis Pedis Integumentary: No: Jaundice diaphoresis Neurological: Yes: Alert, Oriented Psychiatric: No: Agitated Laboratory Last Values WBC 10.0 K/mm3 (4.0-10.0) 03/09/19 05:55 RBC 4.13 M/mm3 (4.00-5.60) 03/09/19 05:55 Hgb 11.8 GM/dL (11.7-16.9) 03/09/19 05:55 Hct 34.0 % (35.4-49) L 03/09/19 05:55 MCV 82.2 fl (80-96) 03/09/19 05:55 MCH 28.5 pg (25.7-33.7) 03/09/19 05:55 MCHC 34.7 g/dl (32.0-35.9) 03/09/19 05:55 RDW 13.8 % (11.9-15.9) 03/09/19 05:55 Plt Count 234 K/MM3 (134-434) 03/09/19 05:55 MPV 7.6 fl (7.5-11.1) 03/09/19 05:55 Absolute Neuts (auto) 7.9 K/mm3 (1.5-8.0) 03/09/19 05:55 Neutrophils % 78.9 % (42.8-82.8) 03/09/19 05:55 Lymphocytes % 10.7 % (8-40) D 03/09/19 05:55 Monocytes % 9.2 % (3.8-10.2) 03/09/19 05:55 Eosinophils % 0.5 % (0-4.5) D 03/09/19 05:55 Basophils % 0.7 % (0-2.0) 03/09/19 05:55 Nucleated RBC % 0 % (0-0) 03/09/19 05:55 PT with INR 12.50 SEC (9.7-13.0) 03/09/19 05:55 INR 1.06 (0.83-1.09) 03/09/19 05:55 PTT (Actin FS) 29.8 SECONDS (25.2-36.5) 03/09/19 05:55 Anticoagulation Therapy No Result Required. 03/08/19 18:50 Puncture Site Right radial 03/08/19 18:50 ABG pH 7.42 (7.35-7.45) 03/08/19 18:50 ABG pCO2 at Pt Temp 27.5 mmHg (35-45) L 03/08/19 18:50 ABG pO2 at Pt Temp 86.8 mmHg (80-100) 03/08/19 18:50 ABG HCO3 17.4 mmol/L (22-27) L 03/08/19 18:50 ABG O2 Sat (Measured) 96.6 % (95-98) 03/08/19 18:50 ABG O2 Content 23.2 % vol 03/08/19 18:50 ABG Base Excess -4.9 meq/l (-2-2) L 03/08/19 18:50 Ray Test Positive 03/08/19 18:50 VBG pH 7.38 (7.31-7.41) 03/08/19 15:30 POC VBG pCO2 28.3 mmHg (38-52) L 03/08/19 15:30 POC VBG pO2 61.3 mmHg (28-48) H 03/08/19 15:30 VBG HCO3 16.3 mmol/L (23-29) L 03/08/19 15:30 VBG O2 Sat (Christofer) 91.3 % (70-80) H 03/08/19 15:30 VBG Base Excess -7.0 meq/l (-2-2) L 03/08/19 15:30 Carboxyhemoglobin 1.1 % (0-2) 03/08/19 18:50 Methemoglobin 1.3 % (0-2) 03/08/19 18:50 O2 Delivery Device No Result Required. 03/08/19 18:50 Oxygen Flow Rate No Result Required. 03/08/19 18:50 Vent Mode No Result Required. 03/08/19 18:50 Vent Rate No Result Required. 03/08/19 18:50 Mechanical Rate No Result Required. 03/08/19 18:50 Pressure Support Vent No Result Required. 03/08/19 18:50 Sodium 133 mmol/L (136-145) L 03/09/19 05:55 Potassium 4.8 mmol/L (3.5-5.1) 03/09/19 05:55 Chloride 103 mmol/L (98-107) 03/09/19 05:55 Carbon Dioxide 18 mmol/L (21-32) L 03/09/19 05:55 Anion Gap 12 MMOL/L (8-16) 03/09/19 05:55 BUN 45.6 mg/dL (7-18) H 03/09/19 05:55 Creatinine 5.4 mg/dL (0.55-1.3) H 03/09/19 05:55 Est GFR (CKD-EPI)AfAm 12.03 03/09/19 05:55 Est GFR (CKD-EPI)NonAf 10.38 03/09/19 05:55 POC Glucometer 412 UNITS (80-120) 03/09/19 10:23 Random Glucose 291 mg/dL (74-106) H 03/09/19 05:55 Hemoglobin A1c % 13.0 % (4.2-6.3) H 03/09/19 05:55 Serum Osmolality 312 mosm/kg (278-305) H 03/08/19 18:30 Lactic Acid 1.5 mmol/L (0.4-2.0) 03/08/19 15:30 Calcium 9.4 mg/dL (8.5-10.1) 03/09/19 05:55 Phosphorus 4.2 mg/dL (2.5-4.9) 03/09/19 05:55 Magnesium 2.1 mg/dL (1.8-2.4) 03/09/19 05:55 Total Bilirubin 0.7 mg/dL (0.2-1) 03/09/19 05:55 AST 60 U/L (15-37) H 03/09/19 05:55 ALT 21 U/L (13-61) 03/09/19 05:55 Alkaline Phosphatase 190 U/L (45-117) H 03/09/19 05:55 Creatine Kinase 863 U/L (26-308) H 03/08/19 22:07 Creatine Kinase Index 0.5 % (0.0-5.0) 03/08/19 22:07 CK-MB (CK-2) 4.6 ng/mL (0.5-3.6) H 03/08/19 22:07 Troponin I 0.13 ng/ml (0.00-0.05) H 03/09/19 09:47 Total Protein 6.2 g/dl (6.4-8.2) L 03/09/19 05:55 Albumin 3.1 g/dl (3.4-5.0) L 03/09/19 05:55 Beta-Hydroxybutyrate 24.1 mg/dL (0.2-2.8) H 03/08/19 15:30 Urine Color Yellow 03/08/19 17:15 Urine Appearance Clear 03/08/19 17:15 Urine pH 6.5 (5.0-8.0) D 03/08/19 17:15 Ur Specific [place] 1.025 (1.010-1.035) 03/08/19 17:15 Urine Protein 3+ (NEGATIVE) H 03/08/19 17:15 Urine Glucose (UA) 3+ (NEGATIVE) H 03/08/19 17:15 Urine Ketones Trace (NEGATIVE) H 03/08/19 17:15 Urine Blood 3+ (NEGATIVE) H 03/08/19 17:15 Urine Nitrite Negative (NEGATIVE) 03/08/19 17:15 Urine Bilirubin Negative (NEGATIVE) 03/08/19 17:15 Urine Urobilinogen 0.2 mg/dL (0.2-1.0) 03/08/19 17:15 Ur Leukocyte Esterase Negative (NEGATIVE) 03/08/19 17:15 Urine WBC (Auto) 0 /hpf (0-5) 03/08/19 17:15 Urine RBC (Auto) 1 /hpf (0-4) 03/08/19 17:15 Urine Casts (Auto) 0 /lpf (0-8) 03/08/19 17:15 U Epithel Cells (Auto) 0.5 /HPF (0-5/HPF) 03/08/19 17:15 Urine Bacteria (Auto) 1.4 /hpf (NEGATIVE) 03/08/19 17:15 Urine Osmolality 419 mosm/kg (300-900) 03/08/19 17:44 Random Vancomycin 12.8 ug/ml (18-26) L 03/09/19 05:55 Salicylates < 1.7 mg/dL (2.8-20) L 03/08/19 15:30 Opiates Screen Negative ng/ml (SDJTHX=321) 03/08/19 17:15 Methadone Screen Negative ng/ml (ZKHIWS=622) 03/08/19 17:15 Acetaminophen <2.0 03/08/19 15:30 Barbiturate Screen Negative ng/ml (BVJWRO=316) 03/08/19 17:15 Phencyclidine Screen Negative ng/ml (CUTOFF=25) 03/08/19 17:15 Ur Amphetamines Screen Negative ng/ml (PYDETE=638) 03/08/19 17:15 MDMA (Ecstasy) Screen Negative ng/ml (RICTZW=805) 03/08/19 17:15 Benzodiazepines Screen Negative ng/ml (OEQQAX=518) 03/08/19 17:15 Cocaine Screen Negative ng/ml (SSFQFG=975) 03/08/19 17:15 U Marijuana (THC) Screen Negative ng/ml (CUTOFF=50) 03/08/19 17:15 Alcohol, Quantitative < 3 mg/dL (0.0-5.0) 03/08/19 15:30 Influenza A (Rapid) Negative (Negative) 03/08/19 15:30 Influenza B (Rapid) Negative (Negative) 03/08/19 15:30 mibi 04/2018 small area of mild ischemia anterior wall, EF 30% lower ext venous doppler: no DVT EKG: sinus tachy, no ischemic changes echo 12/2018: nl lv/rv, no sig valve path, mild ao root dil tele: sr cxr: clear lungs a/p: 63M h/o CKD, DM, HLD, HTN, wilm's tumor s/p nephrectomy, esrd on hd, chf, cad s/p pci (most recent was earlier this month, elective pci for chronic cad) here with ams. ams, sepsis: -infectious w/u, abx per crit care, ID elevated troponin: -borderline trop elevation with flat trend, similar to prior baseline values, not c/w acs chronic diastolic chf: -recent outpt echo unremarkable -vol stable here, cont hd per renal HTN - stable, continue home meds HLD - cont statin when acute issues resolve cad s/p pci (most recent was earlier this month, elective pci for chronic cad): -no signs acs, no angina -cont uninterrupted dapt given recent pci
[2019-03-09] MEDS ORDERED: LACTATED RINGERS SOLUTION 1,000 ML/1,000 ML INFUS.BAG IV SCH (12:00)
--- NOTE | 2019-03-09 12:06 | PN ---
Teaching Attending Note Name of Resident: Kirsty Plaza ATTENDING PHYSICIAN STATEMENT I saw and evaluated the patient. I reviewed the resident's note and discussed the case with the resident. I agree with the resident's findings and plan as documented. SUBJECTIVE: Pt seen and examined in the ICU. Off insulin gtt. No further fevers. Denies shortness of breath, chest pain, cough. OBJECTIVE: Vital Signs Period Temp Pulse Resp BP Sys/Barrera Pulse Ox Last 24 Hr 98.3 F-101.3 F 95-130 16-22 109-153/61-88 94-97 Intake & Output 03/06/19 03/07/19 03/08/19 03/09/19 23:59 23:59 23:59 23:59 Intake Total 0 864 Balance 0 864 Weight 86.682 kg 96.162 kg Gen: NAD at rest Heart: RRR Lung: decreased breath sounds at the bases Abd: soft, nontender Ext: no edema CBC, BMP 03/09/19 05:55 03/09/19 05:55 Active Medications Aspirin (Asa -) 81 mg PO DAILY [facility] Last Admin: 03/09/19 09:37 Dose: 81 mg Chlorhexidine Gluconate (Hibiclens For Decolonization -) 1 applic TP HS [facility] Last Admin: 03/08/19 23:56 Dose: 1 applic Clopidogrel Bisulfate (Plavix -) 75 mg PO DAILY [facility] Last Admin: 03/09/19 09:37 Dose: 75 mg Collagenase (Santyl -) 1 applic TP DAILY [facility]; Protocol Last Admin: 03/09/19 11:54 Dose: 1 applic Heparin Sodium (Porcine) (Heparin -) 5,000 unit SQ BID [facility] Last Admin: 03/09/19 09:36 Dose: 5,000 unit Piperacillin Sod/Tazobactam (Sod 2.25 gm/ Dextrose) 50 mls @ 100 mls/hr IVPB Q8H-IV [facility]; Protocol Last Admin: 03/09/19 09:36 Dose: 100 mls/hr Lactated Ringer's (Lactated Ringers Solution) 1,000 ml in 1,000 mls @ 83 mls/ hr IV ASDIR [facility] Last Admin: 03/09/19 11:54 Dose: 83 mls/hr Insulin Aspart (Novolog Vial Sliding Scale -) 1 vial SQ ACHS [facility]; Protocol Last Admin: 03/09/19 10:32 Dose: 12 units Mupirocin (Bactroban Ointment (For Decolonization) -) 1 applic NS BID [facility] Stop: 03/13/19 21:59 Last Admin: 03/09/19 09:37 Dose: 1 applic ASSESSMENT AND PLAN: Hyperglycemic Hyperosmolar Syndrome improving r/o Pneumonia LV Diastolic Dysfuntion CAD +Troponins likely Demand Ischemia HTN Hyperlipidemia DM h/o Wilm's Tumor s/p Nephrectomy ESRD on HD Hyponatremia - on empiric antibiotics - f/u cultures - HD per renal - glucose control - O2 to keep SpO2 >90% - DVT prophylaxis - can monitor on floor
[2019-03-09] MEDS: LACTATED RINGERS SOLUTION 1,000 ML/1,000 ML INFUS.BAG IV SCH ×2 (12:14→23:45)
[2019-03-09] MEDS ORDERED: INSULIN (NOVOLOG) ASPART 100 UNITS/ML 10ML VIAL SQ ONE (12:18)
[2019-03-09] MEDS ORDERED: SODIUM CHLORIDE 250 ML IV PRN (12:52)
--- NOTE | 2019-03-09 12:52 | PN ---
Progress Note, Physician History of Present Illness: Pt seen and examined at bedside. He is in e ICU. He says he began to feel ill on Saturday. he feels better today. He is off of insulin. - Current Medication List Current Medications: Active Medications Aspirin (Asa -) 81 mg PO DAILY [facility] Last Admin: 03/09/19 09:37 Dose: 81 mg Chlorhexidine Gluconate (Hibiclens For Decolonization -) 1 applic TP HS [facility] Last Admin: 03/08/19 23:56 Dose: 1 applic Clopidogrel Bisulfate (Plavix -) 75 mg PO DAILY [facility] Last Admin: 03/09/19 09:37 Dose: 75 mg Collagenase (Santyl -) 1 applic TP DAILY [facility]; Protocol Last Admin: 03/09/19 11:54 Dose: 1 applic Heparin Sodium (Porcine) (Heparin -) 5,000 unit SQ BID [facility] Last Admin: 03/09/19 09:36 Dose: 5,000 unit Piperacillin Sod/Tazobactam (Sod 2.25 gm/ Dextrose) 50 mls @ 100 mls/hr IVPB Q8H-IV [facility]; Protocol Last Admin: 03/09/19 09:36 Dose: 100 mls/hr Lactated Ringer's (Lactated Ringers Solution) 1,000 ml in 1,000 mls @ 42 mls/ hr IV ASDIR [facility] Last Admin: 03/09/19 12:14 Dose: 42 mls/hr Insulin Aspart (Novolog Vial Sliding Scale -) 1 vial SQ ACHS [facility]; Protocol Last Admin: 03/09/19 10:32 Dose: 12 units Mupirocin (Bactroban Ointment (For Decolonization) -) 1 applic NS BID [facility] Stop: 03/13/19 21:59 Last Admin: 03/09/19 09:37 Dose: 1 applic - Objective Vital Signs: Vital Signs Temperature 98.3 F 03/09/19 12:00 Pulse Rate 109 H 03/09/19 12:00 Respiratory Rate 17 03/09/19 12:00 Blood Pressure 145/67 03/09/19 12:00 O2 Sat by Pulse Oximetry (%) 97 03/09/19 09:20 Constitutional: Yes: Calm Eyes: Yes: Conjunctiva Clear HENT: Yes: Atraumatic Neck: Yes: Supple Cardiovascular: Yes: S1, S2 Respiratory: Yes: CTA Bilaterally Gastrointestinal: Yes: Soft Genitourinary: Yes: WNL Musculoskeletal: Yes: WNL Extremities: Yes: Other (left great toe ulcer) Edema: No Neurological: Yes: Oriented Psychiatric: Yes: Oriented Labs: CBC, BMP 03/09/19 05:55 03/09/19 05:55 INR, PTT INR 1.06 (0.83-1.09) 03/09/19 05:55 Assessment/Plan Current Medications Generic Name Dose Route Start Last Admin Trade Name Shilpa PRN Reason Stop Dose Admin Aspirin 81 mg 03/09/19 10:00 03/09/19 09:37 Asa - PO 81 mg DAILY [facility] Administration Chlorhexidine Gluconate 1 applic 03/08/19 22:00 03/08/19 23:56 Hibiclens For Decolonization - TP 1 applic HS [id number] Administration Clopidogrel Bisulfate 75 mg 03/09/19 10:00 03/09/19 09:37 Plavix - PO 75 mg DAILY [facility] Administration Collagenase 1 applic 03/09/19 11:15 03/09/19 11:54 Santyl - TP 1 applic DAILY [facility] Administration Protocol Heparin Sodium (Porcine) 5,000 unit 03/08/19 22:00 03/09/19 09:36 Heparin - SQ 5,000 unit BID [facility] Administration Piperacillin Sod/Tazobactam 50 mls @ 100 mls/hr 03/09/19 10:00 03/09/19 09:36 Sod 2.25 gm/ Dextrose IVPB 100 mls/hr Q8H-IV [facility] Administration Protocol Lactated Ringer's 1,000 ml in 1,000 mls @ 42 mls/hr 03/09/19 12:06 03/09/19 12:14 Lactated Ringers Solution IV 42 mls/hr ASDIR [facility] Administration Insulin Aspart 1 vial 03/09/19 07:00 03/09/19 10:32 Novolog Vial Sliding Scale - SQ 12 units ACHS [facility] Administration Protocol Mupirocin 1 applic 03/08/19 22:00 03/09/19 09:37 Bactroban Ointment (For Decolonization) - NS 03/13/19 21:59 1 applic BID [facility] Administration Impression 1. ESRD 2. PNA 3. DM 4. hhs 5. hyperlipidemia 6. HTN 7. hx of Wilms tumor, s/p left nephrectomy 8. dyspnea Plan - HD today - monitor blood sugar - follow culture - podiatry eval - renal diabetic diet
--- NOTE | 2019-03-09 13:07 | PN ---
Physical Exam: SUBJECTIVE: Patient seen and examined in the morning. Patient was brought in to ICU overnight from ED. Insulin drip was turned off in the AM, patient was given basal dose of levemir. Patient denies headache, fever, chills, shortness of breath, chest pain, abdominal pain, n/v/d. OBJECTIVE: Vital Signs Period Temp Pulse Resp BP Sys/Barrera Pulse Ox Last 24 Hr 98.3 F-101.3 F 95-130 16-22 109-153/61-88 94-97 GENERAL: The patient is AAOx2. Not in distress, but shows signs of frustration and confusion. HEAD: Normal with no signs of trauma. EYES: EOMI ENT: Ears normal, nares patent, oropharynx clear without exudates, moist mucous membranes. NECK: Trachea midline, full range of motion, supple. LUNGS: Breath sounds equal, clear to auscultation bilaterally, no wheezes, no crackles, no accessory muscle use. HEART: Regular rate and rhythm, S1, S2 without murmur, rub or gallop. ABDOMEN: Soft, nontender, nondistended, normoactive bowel sounds. EXTREMITIES: 2+ pulses, warm, well-perfused, no edema. Left first toe ulceration NEUROLOGICAL: Cranial nerves II through XII grossly intact. 4/5 strength in LLE, 5/5 strength in RLE. PSYCH: Normal mood, normal affect. SKIN: Warm, dry, normal turgor, no rashes or lesions noted Laboratory Results - last 24 hr 03/08/19 03/08/19 03/08/19 15:30 15:30 15:30 WBC 8.9 RBC 4.42 Hgb 12.5 Hct 37.5 D MCV 84.7 MCH 28.3 MCHC 33.4 RDW 13.9 D Plt Count 242 D MPV 8.1 Absolute Neuts (auto) 7.7 Neutrophils % 87.0 H D Lymphocytes % 5.7 L D Monocytes % 6.9 Eosinophils % 0.0 D Basophils % 0.4 Nucleated RBC % 0 PT with INR 12.00 INR 1.02 PTT (Actin FS) 32.4 Anticoagulation Therapy Puncture Site ABG pH ABG pCO2 at Pt Temp ABG pO2 at Pt Temp ABG HCO3 ABG O2 Sat (Measured) ABG O2 Content ABG Base Excess Ray Test VBG pH POC VBG pCO2 POC VBG pO2 VBG HCO3 VBG O2 Sat (Christofer) VBG Base Excess Carboxyhemoglobin Methemoglobin O2 Delivery Device Oxygen Flow Rate Vent Mode Vent Rate Mechanical Rate Pressure Support Vent Sodium Potassium Chloride Carbon Dioxide Anion Gap BUN Creatinine Est GFR (CKD-EPI)AfAm Est GFR (CKD-EPI)NonAf POC Glucometer Random Glucose Hemoglobin A1c % Serum Osmolality Lactic Acid Calcium Phosphorus Magnesium Total Bilirubin AST ALT Alkaline Phosphatase Creatine Kinase Creatine Kinase Index CK-MB (CK-2) Troponin I Cancelled Total Protein Albumin Beta-Hydroxybutyrate Urine Color Urine Appearance Urine pH Ur Specific Melvin Urine Protein Urine Glucose (UA) Urine Ketones Urine Blood Urine Nitrite Urine Bilirubin Urine Urobilinogen Ur Leukocyte Esterase Urine WBC (Auto) Urine RBC (Auto) Urine Casts (Auto) U Epithel Cells (Auto) Urine Bacteria (Auto) Urine Osmolality Random Vancomycin Salicylates Opiates Screen Methadone Screen Acetaminophen Barbiturate Screen Phencyclidine Screen Ur Amphetamines Screen MDMA (Ecstasy) Screen Benzodiazepines Screen Cocaine Screen U Marijuana (THC) Screen Alcohol, Quantitative Influenza A (Rapid) Influenza B (Rapid) 03/08/19 03/08/19 03/08/19 15:30 15:30 15:30 WBC RBC Hgb Hct MCV MCH MCHC RDW Plt Count MPV Absolute Neuts (auto) Neutrophils % Lymphocytes % Monocytes % Eosinophils % Basophils % Nucleated RBC % PT with INR INR PTT (Actin FS) Anticoagulation Therapy Puncture Site ABG pH ABG pCO2 at Pt Temp ABG pO2 at Pt Temp ABG HCO3 ABG O2 Sat (Measured) ABG O2 Content ABG Base Excess Ray Test VBG pH 7.38 POC VBG pCO2 28.3 L POC VBG pO2 61.3 H VBG HCO3 16.3 L VBG O2 Sat (Christofer) 91.3 H VBG Base Excess -7.0 L Carboxyhemoglobin Methemoglobin O2 Delivery Device Oxygen Flow Rate Vent Mode Vent Rate Mechanical Rate Pressure Support Vent Sodium 126 L Potassium 5.1 Chloride 96 L Carbon Dioxide 18 L Anion Gap 12 BUN 43.8 H Creatinine 5.1 H Est GFR (CKD-EPI)AfAm 12.89 Est GFR (CKD-EPI)NonAf 11.12 POC Glucometer Random Glucose 759 H* Hemoglobin A1c % Serum Osmolality Lactic Acid 1.5 Calcium 9.6 Phosphorus Magnesium Total Bilirubin 0.5 AST 38 H ALT 21 Alkaline Phosphatase 238 H Creatine Kinase Creatine Kinase Index CK-MB (CK-2) Troponin I 0.12 H Total Protein 6.8 Albumin 3.5 Beta-Hydroxybutyrate 24.1 H Urine Color Urine Appearance Urine pH Ur Specific Melvin Urine Protein Urine Glucose (UA) Urine Ketones Urine Blood Urine Nitrite Urine Bilirubin Urine Urobilinogen Ur Leukocyte Esterase Urine WBC (Auto) Urine RBC (Auto) Urine Casts (Auto) U Epithel Cells (Auto) Urine Bacteria (Auto) Urine Osmolality Random Vancomycin Salicylates Opiates Screen Methadone Screen Acetaminophen Barbiturate Screen Phencyclidine Screen Ur Amphetamines Screen MDMA (Ecstasy) Screen Benzodiazepines Screen Cocaine Screen U Marijuana (THC) Screen Alcohol, Quantitative < 3 Influenza A (Rapid) Influenza B (Rapid) 03/08/19 03/08/19 03/08/19 15:30 15:30 15:38 WBC RBC Hgb Hct MCV MCH MCHC RDW Plt Count MPV Absolute Neuts (auto) Neutrophils % Lymphocytes % Monocytes % Eosinophils % Basophils % Nucleated RBC % PT with INR INR PTT (Actin FS) Anticoagulation Therapy Puncture Site ABG pH ABG pCO2 at Pt Temp ABG pO2 at Pt Temp ABG HCO3 ABG O2 Sat (Measured) ABG O2 Content ABG Base Excess Ray Test VBG pH POC VBG pCO2 POC VBG pO2 VBG HCO3 VBG O2 Sat (Christofer) VBG Base Excess Carboxyhemoglobin Methemoglobin O2 Delivery Device Oxygen Flow Rate Vent Mode Vent Rate Mechanical Rate Pressure Support Vent Sodium Potassium Chloride Carbon Dioxide Anion Gap BUN Creatinine Est GFR (CKD-EPI)AfAm Est GFR (CKD-EPI)NonAf POC Glucometer > 600 Random Glucose Hemoglobin A1c % Serum Osmolality Lactic Acid Calcium Phosphorus Magnesium Total Bilirubin AST ALT Alkaline Phosphatase Creatine Kinase Creatine Kinase Index CK-MB (CK-2) Troponin I Total Protein Albumin Beta-Hydroxybutyrate Urine Color Urine Appearance Urine pH Ur Specific Melvin Urine Protein Urine Glucose (UA) Urine Ketones Urine Blood Urine Nitrite Urine Bilirubin Urine Urobilinogen Ur Leukocyte Esterase Urine WBC (Auto) Urine RBC (Auto) Urine Casts (Auto) U Epithel Cells (Auto) Urine Bacteria (Auto) Urine Osmolality Random Vancomycin Salicylates < 1.7 L Opiates Screen Methadone Screen Acetaminophen <2.0 Barbiturate Screen Phencyclidine Screen Ur Amphetamines Screen MDMA (Ecstasy) Screen Benzodiazepines Screen Cocaine Screen U Marijuana (THC) Screen Alcohol, Quantitative Influenza A (Rapid) Negative Influenza B (Rapid) Negative 03/08/19 03/08/19 03/08/19 17:15 17:15 17:44 WBC RBC Hgb Hct MCV MCH MCHC RDW Plt Count MPV Absolute Neuts (auto) Neutrophils % Lymphocytes % Monocytes % Eosinophils % Basophils % Nucleated RBC % PT with INR INR PTT (Actin FS) Anticoagulation Therapy Puncture Site ABG pH ABG pCO2 at Pt Temp ABG pO2 at Pt Temp ABG HCO3 ABG O2 Sat (Measured) ABG O2 Content ABG Base Excess Ray Test VBG pH POC VBG pCO2 POC VBG pO2 VBG HCO3 VBG O2 Sat (Christofer) VBG Base Excess Carboxyhemoglobin Methemoglobin O2 Delivery Device Oxygen Flow Rate Vent Mode Vent Rate Mechanical Rate Pressure Support Vent Sodium Potassium Chloride Carbon Dioxide Anion Gap BUN Creatinine Est GFR (CKD-EPI)AfAm Est GFR (CKD-EPI)NonAf POC Glucometer Random Glucose Hemoglobin A1c % Serum Osmolality Lactic Acid Calcium Phosphorus Magnesium Total Bilirubin AST ALT Alkaline Phosphatase Creatine Kinase Creatine Kinase Index CK-MB (CK-2) Troponin I Total Protein Albumin Beta-Hydroxybutyrate Urine Color Yellow Urine Appearance Clear Urine pH 6.5 D Ur Specific Melvin 1.025 Urine Protein 3+ H Urine Glucose (UA) 3+ H Urine Ketones Trace H Urine Blood 3+ H Urine Nitrite Negative Urine Bilirubin Negative Urine Urobilinogen 0.2 Ur Leukocyte Esterase Negative Urine WBC (Auto) 0 Urine RBC (Auto) 1 Urine Casts (Auto) 0 U Epithel Cells (Auto) 0.5 Urine Bacteria (Auto) 1.4 Urine Osmolality 419 Random Vancomycin Salicylates Opiates Screen Negative Methadone Screen Negative Acetaminophen Barbiturate Screen Negative Phencyclidine Screen Negative Ur Amphetamines Screen Negative MDMA (Ecstasy) Screen Negative Benzodiazepines Screen Negative Cocaine Screen Negative U Marijuana (THC) Screen Negative Alcohol, Quantitative Influenza A (Rapid) Influenza B (Rapid) 03/08/19 03/08/19 03/08/19 18:28 18:30 18:50 WBC RBC Hgb Hct MCV MCH MCHC RDW Plt Count MPV Absolute Neuts (auto) Neutrophils % Lymphocytes % Monocytes % Eosinophils % Basophils % Nucleated RBC % PT with INR INR PTT (Actin FS) Anticoagulation Therapy No Result Required. Puncture Site Right radial ABG pH 7.42 ABG pCO2 at Pt Temp 27.5 L ABG pO2 at Pt Temp 86.8 ABG HCO3 17.4 L ABG O2 Sat (Measured) 96.6 ABG O2 Content 23.2 ABG Base Excess -4.9 L Ray Test Positive VBG pH POC VBG pCO2 POC VBG pO2 VBG HCO3 VBG O2 Sat (Christofer) VBG Base Excess Carboxyhemoglobin 1.1 Methemoglobin 1.3 O2 Delivery Device No Result Required. Oxygen Flow Rate No Result Required. Vent Mode No Result Required. Vent Rate No Result Required. Mechanical Rate No Result Required. Pressure Support Vent No Result Required. Sodium 127 L Potassium 4.3 Chloride 97 L Carbon Dioxide 19 L Anion Gap 11 BUN 43.7 H Creatinine 5.3 H Est GFR (CKD-EPI)AfAm 12.31 Est GFR (CKD-EPI)NonAf 10.62 POC Glucometer > 600 Random Glucose 646 H* Hemoglobin A1c % Serum Osmolality 312 H Lactic Acid Calcium 9.3 Phosphorus 3.2 Magnesium 2.0 Total Bilirubin AST ALT Alkaline Phosphatase Creatine Kinase Creatine Kinase Index CK-MB (CK-2) Troponin I Total Protein Albumin Beta-Hydroxybutyrate Urine Color Urine Appearance Urine pH Ur Specific Melvin Urine Protein Urine Glucose (UA) Urine Ketones Urine Blood Urine Nitrite Urine Bilirubin Urine Urobilinogen Ur Leukocyte Esterase Urine WBC (Auto) Urine RBC (Auto) Urine Casts (Auto) U Epithel Cells (Auto) Urine Bacteria (Auto) Urine Osmolality Random Vancomycin Salicylates Opiates Screen Methadone Screen Acetaminophen Barbiturate Screen Phencyclidine Screen Ur Amphetamines Screen MDMA (Ecstasy) Screen Benzodiazepines Screen Cocaine Screen U Marijuana (THC) Screen Alcohol, Quantitative Influenza A (Rapid) Influenza B (Rapid) 03/08/19 03/08/19 03/08/19 20:07 22:07 22:13 WBC RBC Hgb Hct MCV MCH MCHC RDW Plt Count MPV Absolute Neuts (auto) Neutrophils % Lymphocytes % Monocytes % Eosinophils % Basophils % Nucleated RBC % PT with INR INR PTT (Actin FS) Anticoagulation Therapy Puncture Site ABG pH ABG pCO2 at Pt Temp ABG pO2 at Pt Temp ABG HCO3 ABG O2 Sat (Measured) ABG O2 Content ABG Base Excess Ray Test VBG pH POC VBG pCO2 POC VBG pO2 VBG HCO3 VBG O2 Sat (Christofer) VBG Base Excess Carboxyhemoglobin Methemoglobin O2 Delivery Device Oxygen Flow Rate Vent Mode Vent Rate Mechanical Rate Pressure Support Vent Sodium 131 L Potassium 4.2 Chloride 100 Carbon Dioxide 19 L Anion Gap 12 BUN 44.2 H Creatinine 5.5 H Est GFR (CKD-EPI)AfAm 11.77 Est GFR (CKD-EPI)NonAf 10.15 POC Glucometer 518 419 Random Glucose 419 H* Hemoglobin A1c % Serum Osmolality Lactic Acid Calcium 9.7 Phosphorus Magnesium Total Bilirubin AST ALT Alkaline Phosphatase Creatine Kinase 863 H Creatine Kinase Index 0.5 CK-MB (CK-2) 4.6 H Troponin I 0.16 H Total Protein Albumin Beta-Hydroxybutyrate Urine Color Urine Appearance Urine pH Ur Specific Melvin Urine Protein Urine Glucose (UA) Urine Ketones Urine Blood Urine Nitrite Urine Bilirubin Urine Urobilinogen Ur Leukocyte Esterase Urine WBC (Auto) Urine RBC (Auto) Urine Casts (Auto) U Epithel Cells (Auto) Urine Bacteria (Auto) Urine Osmolality Random Vancomycin Salicylates Opiates Screen Methadone Screen Acetaminophen Barbiturate Screen Phencyclidine Screen Ur Amphetamines Screen MDMA (Ecstasy) Screen Benzodiazepines Screen Cocaine Screen U Marijuana (THC) Screen Alcohol, Quantitative Influenza A (Rapid) Influenza B (Rapid) 03/08/19 03/08/19 03/09/19 23:09 23:58 00:45 WBC RBC Hgb Hct MCV MCH MCHC RDW Plt Count MPV Absolute Neuts (auto) Neutrophils % Lymphocytes % Monocytes % Eosinophils % Basophils % Nucleated RBC % PT with INR INR PTT (Actin FS) Anticoagulation Therapy Puncture Site ABG pH ABG pCO2 at Pt Temp ABG pO2 at Pt Temp ABG HCO3 ABG O2 Sat (Measured) ABG O2 Content ABG Base Excess Ray Test VBG pH POC VBG pCO2 POC VBG pO2 VBG HCO3 VBG O2 Sat (Christofer) VBG Base Excess Carboxyhemoglobin Methemoglobin O2 Delivery Device Oxygen Flow Rate Vent Mode Vent Rate Mechanical Rate Pressure Support Vent Sodium 133 L Potassium 4.3 Chloride 102 Carbon Dioxide 21 Anion Gap 10 BUN 44.8 H Creatinine 5.4 H Est GFR (CKD-EPI)AfAm 12.03 Est GFR (CKD-EPI)NonAf 10.38 POC Glucometer 348 303 Random Glucose 263 H Hemoglobin A1c % Serum Osmolality Lactic Acid Calcium 9.7 Phosphorus Magnesium Total Bilirubin AST ALT Alkaline Phosphatase Creatine Kinase Creatine Kinase Index CK-MB (CK-2) Troponin I 0.17 H Total Protein Albumin Beta-Hydroxybutyrate Urine Color Urine Appearance Urine pH Ur Specific Melvin Urine Protein Urine Glucose (UA) Urine Ketones Urine Blood Urine Nitrite Urine Bilirubin Urine Urobilinogen Ur Leukocyte Esterase Urine WBC (Auto) Urine RBC (Auto) Urine Casts (Auto) U Epithel Cells (Auto) Urine Bacteria (Auto) Urine Osmolality Random Vancomycin Salicylates Opiates Screen Methadone Screen Acetaminophen Barbiturate Screen Phencyclidine Screen Ur Amphetamines Screen MDMA (Ecstasy) Screen Benzodiazepines Screen Cocaine Screen U Marijuana (THC) Screen Alcohol, Quantitative Influenza A (Rapid) Influenza B (Rapid) 03/09/19 03/09/19 03/09/19 01:19 02:18 03:15 WBC RBC Hgb Hct MCV MCH MCHC RDW Plt Count MPV Absolute Neuts (auto) Neutrophils % Lymphocytes % Monocytes % Eosinophils % Basophils % Nucleated RBC % PT with INR INR PTT (Actin FS) Anticoagulation Therapy Puncture Site ABG pH ABG pCO2 at Pt Temp ABG pO2 at Pt Temp ABG HCO3 ABG O2 Sat (Measured) ABG O2 Content ABG Base Excess Ray Test VBG pH POC VBG pCO2 POC VBG pO2 VBG HCO3 VBG O2 Sat (Christofer) VBG Base Excess Carboxyhemoglobin Methemoglobin O2 Delivery Device Oxygen Flow Rate Vent Mode Vent Rate Mechanical Rate Pressure Support Vent Sodium Potassium Chloride Carbon Dioxide Anion Gap BUN Creatinine Est GFR (CKD-EPI)AfAm Est GFR (CKD-EPI)NonAf POC Glucometer 227 181 177 Random Glucose Hemoglobin A1c % Serum Osmolality Lactic Acid Calcium Phosphorus Magnesium Total Bilirubin AST ALT Alkaline Phosphatase Creatine Kinase Creatine Kinase Index CK-MB (CK-2) Troponin I Total Protein Albumin Beta-Hydroxybutyrate Urine Color Urine Appearance Urine pH Ur Specific Melvin Urine Protein Urine Glucose (UA) Urine Ketones Urine Blood Urine Nitrite Urine Bilirubin Urine Urobilinogen Ur Leukocyte Esterase Urine WBC (Auto) Urine RBC (Auto) Urine Casts (Auto) U Epithel Cells (Auto) Urine Bacteria (Auto) Urine Osmolality Random Vancomycin Salicylates Opiates Screen Methadone Screen Acetaminophen Barbiturate Screen Phencyclidine Screen Ur Amphetamines Screen MDMA (Ecstasy) Screen Benzodiazepines Screen Cocaine Screen U Marijuana (THC) Screen Alcohol, Quantitative Influenza A (Rapid) Influenza B (Rapid) 03/09/19 03/09/19 03/09/19 03:20 04:29 05:55 WBC RBC Hgb Hct MCV MCH MCHC RDW Plt Count MPV Absolute Neuts (auto) Neutrophils % Lymphocytes % Monocytes % Eosinophils % Basophils % Nucleated RBC % PT with INR INR PTT (Actin FS) Anticoagulation Therapy Puncture Site ABG pH ABG pCO2 at Pt Temp ABG pO2 at Pt Temp ABG HCO3 ABG O2 Sat (Measured) ABG O2 Content ABG Base Excess Ray Test VBG pH POC VBG pCO2 POC VBG pO2 VBG HCO3 VBG O2 Sat (Christofer) VBG Base Excess Carboxyhemoglobin Methemoglobin O2 Delivery Device Oxygen Flow Rate Vent Mode Vent Rate Mechanical Rate Pressure Support Vent Sodium 133 L Potassium 4.5 Chloride 103 Carbon Dioxide 22 Anion Gap 9 BUN 44.9 H Creatinine 5.5 H Est GFR (CKD-EPI)AfAm 11.77 Est GFR (CKD-EPI)NonAf 10.15 POC Glucometer 224 Random Glucose 190 H Hemoglobin A1c % Serum Osmolality Lactic Acid Calcium 9.6 Phosphorus Magnesium Total Bilirubin AST ALT Alkaline Phosphatase Creatine Kinase Creatine Kinase Index CK-MB (CK-2) Troponin I 0.17 H Total Protein Albumin Beta-Hydroxybutyrate Urine Color Urine Appearance Urine pH Ur Specific Melvin Urine Protein Urine Glucose (UA) Urine Ketones Urine Blood Urine Nitrite Urine Bilirubin Urine Urobilinogen Ur Leukocyte Esterase Urine WBC (Auto) Urine RBC (Auto) Urine Casts (Auto) U Epithel Cells (Auto) Urine Bacteria (Auto) Urine Osmolality Random Vancomycin 12.8 L Salicylates Opiates Screen Methadone Screen Acetaminophen Barbiturate Screen Phencyclidine Screen Ur Amphetamines Screen MDMA (Ecstasy) Screen Benzodiazepines Screen Cocaine Screen U Marijuana (THC) Screen Alcohol, Quantitative Influenza A (Rapid) Influenza B (Rapid) 03/09/19 03/09/19 03/09/19 05:55 05:55 05:55 WBC 10.0 RBC 4.13 Hgb 11.8 Hct 34.0 L MCV 82.2 MCH 28.5 MCHC 34.7 RDW 13.8 Plt Count 234 MPV 7.6 Absolute Neuts (auto) 7.9 Neutrophils % 78.9 Lymphocytes % 10.7 D Monocytes % 9.2 Eosinophils % 0.5 D Basophils % 0.7 Nucleated RBC % 0 PT with INR 12.50 INR 1.06 PTT (Actin FS) 29.8 Anticoagulation Therapy Puncture Site ABG pH ABG pCO2 at Pt Temp ABG pO2 at Pt Temp ABG HCO3 ABG O2 Sat (Measured) ABG O2 Content ABG Base Excess Ray Test VBG pH POC VBG pCO2 POC VBG pO2 VBG HCO3 VBG O2 Sat (Christofer) VBG Base Excess Carboxyhemoglobin Methemoglobin O2 Delivery Device Oxygen Flow Rate Vent Mode Vent Rate Mechanical Rate Pressure Support Vent Sodium 133 L Potassium 4.8 Chloride 103 Carbon Dioxide 18 L Anion Gap 12 BUN 45.6 H Creatinine 5.4 H Est GFR (CKD-EPI)AfAm 12.03 Est GFR (CKD-EPI)NonAf 10.38 POC Glucometer Random Glucose 291 H Hemoglobin A1c % Serum Osmolality Lactic Acid Calcium 9.4 Phosphorus 4.2 Magnesium 2.1 Total Bilirubin 0.7 AST 60 H ALT 21 Alkaline Phosphatase 190 H Creatine Kinase Creatine Kinase Index CK-MB (CK-2) Troponin I Total Protein 6.2 L Albumin 3.1 L Beta-Hydroxybutyrate Urine Color Urine Appearance Urine pH Ur Specific Melvin Urine Protein Urine Glucose (UA) Urine Ketones Urine Blood Urine Nitrite Urine Bilirubin Urine Urobilinogen Ur Leukocyte Esterase Urine WBC (Auto) Urine RBC (Auto) Urine Casts (Auto) U Epithel Cells (Auto) Urine Bacteria (Auto) Urine Osmolality Random Vancomycin Salicylates Opiates Screen Methadone Screen Acetaminophen Barbiturate Screen Phencyclidine Screen Ur Amphetamines Screen MDMA (Ecstasy) Screen Benzodiazepines Screen Cocaine Screen U Marijuana (THC) Screen Alcohol, Quantitative Influenza A (Rapid) Influenza B (Rapid) 03/09/19 03/09/19 03/09/19 05:55 05:56 08:11 WBC RBC Hgb Hct MCV MCH MCHC RDW Plt Count MPV Absolute Neuts (auto) Neutrophils % Lymphocytes % Monocytes % Eosinophils % Basophils % Nucleated RBC % PT with INR INR PTT (Actin FS) Anticoagulation Therapy Puncture Site ABG pH ABG pCO2 at Pt Temp ABG pO2 at Pt Temp ABG HCO3 ABG O2 Sat (Measured) ABG O2 Content ABG Base Excess Ray Test VBG pH POC VBG pCO2 POC VBG pO2 VBG HCO3 VBG O2 Sat (Christofer) VBG Base Excess Carboxyhemoglobin Methemoglobin O2 Delivery Device Oxygen Flow Rate Vent Mode Vent Rate Mechanical Rate Pressure Support Vent Sodium Potassium Chloride Carbon Dioxide Anion Gap BUN Creatinine Est GFR (CKD-EPI)AfAm Est GFR (CKD-EPI)NonAf POC Glucometer 227 301 Random Glucose Hemoglobin A1c % 13.0 H Serum Osmolality Lactic Acid Calcium Phosphorus Magnesium Total Bilirubin AST ALT Alkaline Phosphatase Creatine Kinase Creatine Kinase Index CK-MB (CK-2) Troponin I Total Protein Albumin Beta-Hydroxybutyrate Urine Color Urine Appearance Urine pH Ur Specific Melvin Urine Protein Urine Glucose (UA) Urine Ketones Urine Blood Urine Nitrite Urine Bilirubin Urine Urobilinogen Ur Leukocyte Esterase Urine WBC (Auto) Urine RBC (Auto) Urine Casts (Auto) U Epithel Cells (Auto) Urine Bacteria (Auto) Urine Osmolality Random Vancomycin Salicylates Opiates Screen Methadone Screen Acetaminophen Barbiturate Screen Phencyclidine Screen Ur Amphetamines Screen MDMA (Ecstasy) Screen Benzodiazepines Screen Cocaine Screen U Marijuana (THC) Screen Alcohol, Quantitative Influenza A (Rapid) Influenza B (Rapid) 03/09/19 03/09/19 03/09/19 09:47 10:23 12:16 WBC RBC Hgb Hct MCV MCH MCHC RDW Plt Count MPV Absolute Neuts (auto) Neutrophils % Lymphocytes % Monocytes % Eosinophils % Basophils % Nucleated RBC % PT with INR INR PTT (Actin FS) Anticoagulation Therapy Puncture Site ABG pH ABG pCO2 at Pt Temp ABG pO2 at Pt Temp ABG HCO3 ABG O2 Sat (Measured) ABG O2 Content ABG Base Excess Ray Test VBG pH POC VBG pCO2 POC VBG pO2 VBG HCO3 VBG O2 Sat (Christofer) VBG Base Excess Carboxyhemoglobin Methemoglobin O2 Delivery Device Oxygen Flow Rate Vent Mode Vent Rate Mechanical Rate Pressure Support Vent Sodium Potassium Chloride Carbon Dioxide Anion Gap BUN Creatinine Est GFR (CKD-EPI)AfAm Est GFR (CKD-EPI)NonAf POC Glucometer 412 370 Random Glucose Hemoglobin A1c % Serum Osmolality Lactic Acid Calcium Phosphorus Magnesium Total Bilirubin AST ALT Alkaline Phosphatase Creatine Kinase Creatine Kinase Index CK-MB (CK-2) Troponin I 0.13 H Total Protein Albumin Beta-Hydroxybutyrate Urine Color Urine Appearance Urine pH Ur Specific Melvin Urine Protein Urine Glucose (UA) Urine Ketones Urine Blood Urine Nitrite Urine Bilirubin Urine Urobilinogen Ur Leukocyte Esterase Urine WBC (Auto) Urine RBC (Auto) Urine Casts (Auto) U Epithel Cells (Auto) Urine Bacteria (Auto) Urine Osmolality Random Vancomycin Salicylates Opiates Screen Methadone Screen Acetaminophen Barbiturate Screen Phencyclidine Screen Ur Amphetamines Screen MDMA (Ecstasy) Screen Benzodiazepines Screen Cocaine Screen U Marijuana (THC) Screen Alcohol, Quantitative Influenza A (Rapid) Influenza B (Rapid) Active Medications Generic Name Dose Route Start Last Admin Trade Name Freq PRN Reason Stop Dose Admin Aspirin 81 mg 03/09/19 10:00 03/09/19 09:37 Asa - PO 81 mg DAILY EDWARD Administration Chlorhexidine Gluconate 1 applic 03/08/19 22:00 03/08/19 23:56 Hibiclens For Decolonization - TP 1 applic HS EDWARD Administration Clopidogrel Bisulfate 75 mg 03/09/19 10:00 03/09/19 09:37 Plavix - PO 75 mg DAILY EDWARD Administration Collagenase 1 applic 03/09/19 11:15 03/09/19 11:54 Santyl - TP 1 applic DAILY EDWARD Administration Protocol Heparin Sodium (Porcine) 5,000 unit 03/08/19 22:00 03/09/19 09:36 Heparin - SQ 5,000 unit BID EDWARD Administration Piperacillin Sod/Tazobactam 50 mls @ 100 mls/hr 03/09/19 10:00 03/09/19 09:36 Sod 2.25 gm/ Dextrose IVPB 100 mls/hr Q8H-IV EDWARD Administration Protocol Lactated Ringer's 1,000 ml in 1,000 mls @ 42 mls/hr 03/09/19 12:06 03/09/19 12:14 Lactated Ringers Solution IV 42 mls/hr ASDIR EDWARD Administration Insulin Aspart 1 vial 03/09/19 07:00 03/09/19 10:32 Novolog Vial Sliding Scale - SQ 12 units ACHS EDWARD Administration Protocol Mupirocin 1 applic 03/08/19 22:00 03/09/19 09:37 Bactroban Ointment (For Decolonization) - NS 03/13/19 21:59 1 applic BID EDWARD Administration ASSESSMENT/PLAN: 63 M with PMH of DM, HTN, HLD, CAD s/p non-emergent PCI at [facility], Wilms tumor s/p resection, ESRD (HD MWF), presented to [facility] with HHS and was transferred to ICU. Neuro -Acute metabolic encephalopathy most likeyl due to HHS vs infectious source from left toe wound vs syncopal event -AAOx2, improving -Head CT showed no acute pathology -Monitor -Neurochecks -Echo and Carotid US pending Endo -BG [id number] -Insulin drip d/c -Patient is awake and alert, responsive -D/C D5-LR, continuing LR -Potassium repleted while insulin drip was on -Endocrinology consulted, appreciate recs CV -Hx of HTN, HLD, CAD s/p non-emergent PCI @ [facility] last Saturday -Possible syncopal episode -Was tachycardic, trops peaked at 0.17 -EKG showed sinus tachycardia -Continue ASA and plavix -Echo ordered, f/u -Vascular surgery consulted, appreciate recs -Cardiology consulted, appreciate recs ID -Possible sepsis from left toe wound -T Max of 101.3 on admission -UA negative, CXR no acute pathology -Urine/wound/and blood cultures sent -Vancomycin and Zoysn given -Redose vancoymcin after trough Renal -Hx of Wilms tumor s/p resection -ESRD HD MWF -HD today Pulm -Stable -Sat >90%, supplement O2 as needed GI -No acute events or complaints -Continue to monitor F:LR @ 80 cc/hr E:Monitor CMP N: Renal diet DVT: Heparin SQ Dispo: Transfer to Med/Surg Visit type - Emergency Visit Emergency Visit: Yes ED Registration Date: 03/08/19 Care time: The patient presented to the Emergency Department on the above date and was hospitalized for further evaluation of their emergent condition. - New Patient This patient is new to me today: Yes Date on this admission: 03/09/19 - Critical Care Critical Care patient: Yes Total Critical Care Time (in minutes): 45 Critical Care Statement: The care of this patient involved high complexity decision making to prevent further life threatening deterioration of the patient's condition and/or to evaluate & treat vital organ system(s) failure or risk of failure. ATTENDING PHYSICIAN STATEMENT I saw and evaluated the patient. I reviewed the resident's note and discussed the case with the resident. I agree with the resident's findings and plan as documented. SUBJECTIVE: OBJECTIVE: ASSESSMENT AND PLAN:
[2019-03-09] MEDS ORDERED: PT OWN MED DRAWER 7, Y5N ONE (20:11)
[2019-03-09] MEDS: CHLORHEXIDINE GLUCONATE 4% CLEANSER FOR DECOLONIZATION TP SCH (21:30)
--- NOTE | 2019-03-09 22:52 | CONSULT ---
Consult Consult Specialty:: ENDOCRINE Referred by:: PAUL MIX RESIDENT Reason for Consultation:: DIABETES MELLITUS TYPE2/NKHOS - History of Present Illness Chief Complaint: WEAKNESS/ HIGH SUGARS History of Present Illness: 63 y/o man with a PMHx of DMT2, HTN, HLD, CHF, CAD s/p PCI ([place], 02/2019) , ESRD (M,W.F), h/o Wilms Tumor. Who was admitted after a fall in the bathroom. Patient i: On arrival was confused lethargic,found to have blood sugars above 600mg/dl .he recently underwent non emergent cardiac cath for angina,at [facility],he denies chest pain,cough,fever,nausea or vomiting.Since he was unable to afford insulin medication he was not taking the recommended doses of novolog insulin.lack of insurance coverage and financial hardship. . - Past Medical History Cardio/Vascular: Yes: HTN, Hyperlipdemia Renal/: Yes: Renal Inusuff, Other, Hemodialysis, Other Musculoskeletal: Yes: Other (poorly healed right ankle fracture, +grade 1-2 wound plantar left hallux, +hallux limitus left) Endocrine: Yes: Diabetes Mellitus - Past Surgical History Past Surgical History: Yes: Appendectomy, AV Fistula/Graft, Nephrectomy - Alcohol/Substance Use Hx Alcohol Use: No - Smoking History Smoking history: Never smoked Have you smoked in the past 12 months: No Aproximately how many cigarettes per day: 0 - Social History ADL: Independent History of Recent Travel: No Home Medications - Allergies Allergies/Adverse Reactions: Allergies Allergy/AdvReac Type Severity Reaction Status Date / Time Iodinated Contrast Media Allergy Intermediate Hives Verified 03/08/19 15:01 - Home Medications Home Medications: Ambulatory Orders Aspirin [Ecotrin] 81 mg PO DAILY 09/03/15 Fish Oil/Borage/Flax/Om3,6,9 1 [[place]ornbeck 3-6-9 Complex Softgel] 1 each PO DAILY Amlodipine Besylate [Norvasc -] 10 mg PO DAILY #30 tablet 07/03/18 Cyanocobalamin [Vitamin B12 -] 1,000 mcg PO DAILY tablet 07/03/18 Isosorbide Dinitrate [Isordil] 5 mg PO BIDISORDIL #30 tablet MDD 2 07/03/18 Acetaminophen [Tylenol .Regular Strength -] 650 mg PO Q6H PRN tablet 07/22/18 Atorvastatin Ca [Lipitor] 80 mg PO HS #30 tablet 07/22/18 Insulin (Levemir) [Levemir Vial] 40 units SQ BID@0700,2200 #0 units 07/22/18 Pantoprazole Sodium [Protonix -] 40 mg PO DAILY #30 tablet.ec 07/22/18 Review of Systems - Review of Systems Constitutional: reports: Lethargy, Weakness Eyes: reports: Blurred Vision HENT: reports: No Symptoms Neck: reports: No Symptoms Cardiovascular: reports: Edema, Shortness of Breath Respiratory: reports: Exercise Intolerance, SOB, SOB on Exertion Gastrointestinal: reports: No Symptoms Musculoskeletal: reports: Extremity Pain, Muscle Cramps, Muscle Weakness Integumentary: reports: No Symptoms Neurological: reports: Numbness, Unsteady Gait, Weakness Endocrine: reports: No Symptoms Hematology/Lymphatic: reports: No Symptoms Psychiatric: reports: Altered Sleep Pattern Physical Exam Vital Signs: Vital Signs Temperature 98.4 F 03/09/19 21:00 Pulse Rate 81 03/09/19 21:00 Respiratory Rate 18 03/09/19 21:00 Blood Pressure 130/60 03/09/19 21:00 O2 Sat by Pulse Oximetry (%) 95 03/09/19 21:00 Constitutional: Yes: Calm Eyes: Yes: EOM Intact HENT: Yes: Normocephalic Neck: Yes: Trachea Midline Cardiovascular: Yes: Tachycardia, JVD Respiratory: Yes: CTA Bilaterally Gastrointestinal: Yes: Normal Bowel Sounds ...Rectal Exam: Yes: Deferred Breast(s): Yes: WNL Musculoskeletal: Yes: Back Pain, Muscle Weakness Extremities: Yes: Delayed Capillary Refill Edema: No Neurological: Yes: Alert, Oriented Labs: CBC, BMP 03/09/19 05:55 03/09/19 05:55 Problem List - Problems (1) Acute metabolic encephalopathy Problems reviewed: Yes Code(s): G93.41 - METABOLIC ENCEPHALOPATHY (2) Altered mental status Problems reviewed: Yes Code(s): R41.82 - ALTERED MENTAL STATUS, UNSPECIFIED Qualifiers: Altered mental status type: disorientation Qualified Code(s): R41.0 - Disorientation, unspecified (3) Hyponatremia Problems reviewed: Yes Code(s): E87.1 - HYPO-OSMOLALITY AND HYPONATREMIA (4) Secondary diabetes with hyperglycemia hyperosmolar non-ketotic coma Problems reviewed: Yes Code(s): E13.01 - OTH DIABETES MELLITUS WITH HYPEROSMOLARITY WITH COMA (5) Acute kidney injury superimposed on chronic kidney disease Problems reviewed: Yes Code(s): N17.9 - ACUTE KIDNEY FAILURE, UNSPECIFIED; N18.9 - CHRONIC KIDNEY DISEASE, UNSPECIFIED (6) Acute renal failure Problems reviewed: Yes Code(s): N17.9 - ACUTE KIDNEY FAILURE, UNSPECIFIED (7) Bronchopneumonia due to human metapneumovirus (hMPV) Problems reviewed: Yes Code(s): J12.3 - HUMAN METAPNEUMOVIRUS PNEUMONIA Assessment/Plan Current Active Problems Acute metabolic encephalopathy (Acute) Altered mental status (Acute) Hyponatremia (Acute) Secondary diabetes with hyperglycemia hyperosmolar non-ketotic coma (Acute) Sepsis (Acute) Abnormal Lab Results 03/08/19 03/09/19 03/09/19 22:07 00:45 03:20 Hct Sodium 131 L 133 L 133 L Carbon Dioxide 19 L BUN 44.2 H 44.8 H 44.9 H Creatinine 5.5 H 5.4 H 5.5 H Random Glucose 419 H* 263 H 190 H Hemoglobin A1c % AST Alkaline Phosphatase Creatine Kinase 863 H CK-MB (CK-2) 4.6 H Troponin I 0.16 H 0.17 H 0.17 H Total Protein Albumin Random Vancomycin 03/09/19 03/09/19 03/09/19 05:55 05:55 05:55 Hct 34.0 L Sodium 133 L Carbon Dioxide 18 L BUN 45.6 H Creatinine 5.4 H Random Glucose 291 H Hemoglobin A1c % AST 60 H Alkaline Phosphatase 190 H Creatine Kinase CK-MB (CK-2) Troponin I Total Protein 6.2 L Albumin 3.1 L Random Vancomycin 12.8 L 03/09/19 03/09/19 05:55 09:47 Hct Sodium Carbon Dioxide BUN Creatinine Random Glucose Hemoglobin A1c % 13.0 H AST Alkaline Phosphatase Creatine Kinase CK-MB (CK-2) Troponin I 0.13 H Total Protein Albumin Random Vancomycin Laboratory Tests 03/09/19 03/09/19 03/09/19 04:29 05:55 08:11 Sodium 133 L Potassium 4.8 Chloride 103 Carbon Dioxide 18 L Anion Gap 12 BUN 45.6 H Creatinine 5.4 H POC Glucometer 224 301 03/09/19 03/09/19 03/09/19 12:16 16:48 18:14 Sodium Potassium Chloride Carbon Dioxide Anion Gap BUN Creatinine POC Glucometer 370 261 258 03/09/19 03/09/19 19:54 21:23 Sodium Potassium Chloride Carbon Dioxide Anion Gap BUN Creatinine POC Glucometer 253 273 plan: insulin sliding scale ivfluid to correct hypovolemia bgm achs novolog scale levemir bid doses 20units bid ck hba1c
[2019-03-10] MEDS ORDERED: DEXTROSE 5%-WATER - 50 ML IVPB ONE ×3 (01:12→17:07)
[2019-03-10] MEDS ORDERED: PIPERACILLIN/TAZOBACTAM 2.25 GM VIAL IVPB ONE ×3 (01:12→17:07)
[2019-03-10] MEDS: PIPERACILLIN/TAZOB 2.25 GM 2.25 GM in DEXTROSE 5%-WATER - 50 ML IVPB SCH ×3 (01:55→17:17)
[2019-03-10] MEDS ORDERED: VANCOMYCIN 1 GRAM (PRE-DOCKED) 1,000 MG/250 ML BAG IVPB ONE (03:00)
[2019-03-10] MEDS: INSULIN SLIDING SCALE (NOVOLOG) 1 VIAL SQ SCH ×4 (06:06→21:15)
[2019-03-10] MEDS ORDERED: INSULIN (LEVEMIR) 100 UNITS/ML UNITS SQ SCH ×2 (07:00→11:45)
[2019-03-10 09:26] LABS: BASO % 1.4 % (0-2.0); EOS % 1.6 % (0-4.5); HEMATOCRIT 31.9 % (35.4-49); HEMOGLOBIN 10.9 GM/dL (11.7-16.9); LYMPH % 12.2 % (8-40); MCH 28.7 pg (25.7-33.7); MCHC 34.1 g/dl (32.0-35.9); MEAN CELL VOLUME 84.1 fl (80-96); MEAN PLT VOLUME 7.9 fl (7.5-11.1); MONO % 8.8 % (3.8-10.2); PLATELET COUNT 190 K/MM3 (134-434); RDW 13.6 % (11.9-15.9); WHITE BLOOD COUNT 7.5 K/mm3 (4.0-10.0)
[2019-03-10] MEDS ORDERED: MUPIROCIN 2% TOPICAL OINTMENT FOR DECOLONIZATION NS SCH (10:00)
[2019-03-10 10:03] LABS: ALBUMIN 2.4 g/dl (3.4-5.0); BILIRUBIN,TOTAL 0.5 mg/dL (0.2-1); BLOOD UREA NITROGEN 28.8 mg/dL (7-18); CALCIUM 8.6 mg/dL (8.5-10.1); CREATININE 4.6 mg/dL (0.55-1.3); MAGNESIUM 2.1 mg/dL (1.8-2.4); PHOSPHOROUS 4.2 mg/dL (2.5-4.9); POTASSIUM 3.7 mmol/L (3.5-5.1); TOT PROT 5.3 g/dl (6.4-8.2)
--- NOTE | 2019-03-10 10:43 | PN ---
Progress Note (short form) - Note Progress Note: Resting in NAD on RA. No CP or SOB or cough. No acute events overnight. Intake & Output 03/07/19 03/08/19 03/09/19 03/10/19 23:59 23:59 23:59 23:59 Intake Total 0 2636 480 Output Total 2200 480 Balance 0 436 0 Weight 191 lb 1.6 oz 212 lb Last Vital Signs Temp Pulse Resp BP Pulse Ox 98.1 F 80 18 140/72 95 03/10/19 06:00 03/10/19 06:00 03/10/19 06:00 03/10/19 06:00 03/09/19 21:00 Active Medications Aspirin (Asa -) 81 mg PO DAILY [facility] Clopidogrel Bisulfate (Plavix -) 75 mg PO DAILY [facility] Collagenase (Santyl -) 1 applic TP DAILY [facility]; Protocol Heparin Sodium (Porcine) (Heparin -) 5,000 unit SQ BID [facility] Lactated Ringer's (Lactated Ringers Solution) 1,000 ml in 1,000 mls @ 42 mls/ hr IV ASDIR [facility] Last Admin: 03/09/19 23:45 Dose: 42 mls/hr Sodium Chloride (Normal Saline -) 250 mls @ 3,000 mls/hr IV PRN PRN PRN Reason: Hypotension during Dialysis Stop: 03/10/19 12:53 Piperacillin Sod/Tazobactam (Sod 2.25 gm/ Dextrose) 50 mls @ 100 mls/hr IVPB Q8H-IV [facility]; Protocol Last Admin: 03/10/19 01:55 Dose: 100 mls/hr Insulin Aspart (Novolog Vial Sliding Scale -) 1 vial SQ ACHS [facility]; Protocol Last Admin: 03/10/19 06:06 Dose: 9 units Insulin Detemir (Levemir Vial) 20 units SQ BID@0700,2200 [facility] Last Admin: 03/10/19 06:21 Dose: 20 units Gen: NAD at rest Heart: RRR Lung: decreased breath sounds at the bases Abd: soft, nontender Ext: no edema Laboratory Results - last 24 hr 03/09/19 03/09/19 03/09/19 05:55 09:47 12:16 WBC RBC Hgb Hct MCV MCH MCHC RDW Plt Count MPV Absolute Neuts (auto) Neutrophils % Lymphocytes % Monocytes % Eosinophils % Basophils % Nucleated RBC % Sodium Potassium Chloride Carbon Dioxide Anion Gap BUN Creatinine Est GFR (CKD-EPI)AfAm Est GFR (CKD-EPI)NonAf POC Glucometer 370 Random Glucose Hemoglobin A1c % 13.0 H Calcium Phosphorus Magnesium Total Bilirubin AST ALT Alkaline Phosphatase Troponin I 0.13 H Total Protein Albumin 03/09/19 03/09/19 03/09/19 14:13 16:48 18:14 WBC RBC Hgb Hct MCV MCH MCHC RDW Plt Count MPV Absolute Neuts (auto) Neutrophils % Lymphocytes % Monocytes % Eosinophils % Basophils % Nucleated RBC % Sodium Potassium Chloride Carbon Dioxide Anion Gap BUN Creatinine Est GFR (CKD-EPI)AfAm Est GFR (CKD-EPI)NonAf POC Glucometer 258 261 258 Random Glucose Hemoglobin A1c % Calcium Phosphorus Magnesium Total Bilirubin AST ALT Alkaline Phosphatase Troponin I Total Protein Albumin 03/09/19 03/09/19 03/10/19 19:54 21:23 05:38 WBC RBC Hgb Hct MCV MCH MCHC RDW Plt Count MPV Absolute Neuts (auto) Neutrophils % Lymphocytes % Monocytes % Eosinophils % Basophils % Nucleated RBC % Sodium Potassium Chloride Carbon Dioxide Anion Gap BUN Creatinine Est GFR (CKD-EPI)AfAm Est GFR (CKD-EPI)NonAf POC Glucometer 253 273 321 Random Glucose Hemoglobin A1c % Calcium Phosphorus Magnesium Total Bilirubin AST ALT Alkaline Phosphatase Troponin I Total Protein Albumin 03/10/19 03/10/19 08:20 08:20 WBC 7.5 RBC 3.80 L Hgb 10.9 L Hct 31.9 L MCV 84.1 MCH 28.7 MCHC 34.1 RDW 13.6 Plt Count 190 MPV 7.9 Absolute Neuts (auto) 5.7 Neutrophils % 76.0 Lymphocytes % 12.2 Monocytes % 8.8 Eosinophils % 1.6 D Basophils % 1.4 Nucleated RBC % 0 Sodium 136 Potassium 3.7 Chloride 100 Carbon Dioxide 27 Anion Gap 9 BUN 28.8 H Creatinine 4.6 H Est GFR (CKD-EPI)AfAm 14.60 Est GFR (CKD-EPI)NonAf 12.60 POC Glucometer Random Glucose 283 H Hemoglobin A1c % Calcium 8.6 Phosphorus 4.2 Magnesium 2.1 Total Bilirubin 0.5 AST 41 H ALT 19 Alkaline Phosphatase 151 H Troponin I Total Protein 5.3 L Albumin 2.4 L ASSESSMENT AND PLAN: Hyperglycemic Hyperosmolar Syndrome improving r/o Pneumonia LV Diastolic Dysfuntion CAD +Troponins likely Demand Ischemia HTN Hyperlipidemia DM h/o Wilm's Tumor s/p Nephrectomy ESRD on HD Hyponatremia - on empiric antibiotics - f/u cultures - HD per renal - glucose control - O2 to keep SpO2 >90% - DVT prophylaxis Dr Mckeon
[2019-03-10] MEDS: HEPARIN NA (PORCINE) 5,000 UNITS/ML 1ML VIAL SQ SCH ×2 (11:30→21:16)
[2019-03-10] MEDS: CLOPIDOGREL BISULFATE 75 MG TABLET (FP) PO SCH (11:30)
[2019-03-10] MEDS: ASPIRIN 81 MG CHEWABLE TABLETS PO SCH (11:30)
--- NOTE | 2019-03-10 11:44 | PN ---
Progress Note, Physician Chief Complaint: Fall Syncope L big toe diabetic ulcer History of Present Illness: NAD in bed denies any pain, N/V/SOB/dizziness - Current Medication List Current Medications: Active Medications Aspirin (Asa -) 81 mg PO DAILY [facility] Clopidogrel Bisulfate (Plavix -) 75 mg PO DAILY [facility] Collagenase (Santyl -) 1 applic TP DAILY [facility]; Protocol Heparin Sodium (Porcine) (Heparin -) 5,000 unit SQ BID [facility] Lactated Ringer's (Lactated Ringers Solution) 1,000 ml in 1,000 mls @ 42 mls/ hr IV ASDIR [facility] Last Admin: 03/09/19 23:45 Dose: 42 mls/hr Sodium Chloride (Normal Saline -) 250 mls @ 3,000 mls/hr IV PRN PRN PRN Reason: Hypotension during Dialysis Stop: 03/10/19 12:53 Piperacillin Sod/Tazobactam (Sod 2.25 gm/ Dextrose) 50 mls @ 100 mls/hr IVPB Q8H-IV [facility]; Protocol Last Admin: 03/10/19 01:55 Dose: 100 mls/hr Insulin Aspart (Novolog Vial Sliding Scale -) 1 vial SQ ACHS [facility]; Protocol Last Admin: 03/10/19 06:06 Dose: 9 units Insulin Detemir (Levemir Vial) 20 units SQ BID@0700,2200 [facility] Last Admin: 03/10/19 06:21 Dose: 20 units - Objective Vital Signs: Vital Signs Temperature 98.1 F 03/10/19 06:00 Pulse Rate 80 03/10/19 06:00 Respiratory Rate 18 03/10/19 06:00 Blood Pressure 140/72 03/10/19 06:00 O2 Sat by Pulse Oximetry (%) 95 03/09/19 21:00 Constitutional: Yes: Well Nourished, No Distress, Calm, Obese Cardiovascular: Yes: Regular Rate and Rhythm Respiratory: Yes: Regular Gastrointestinal: Yes: Normal Bowel Sounds, Soft, Abdomen, Obese Genitourinary: Yes: WNL Musculoskeletal: Yes: WNL Extremities: Yes: Other (Left big toe necrotic tissue) Edema: No Peripheral Pulses WNL: Yes Integumentary: Yes: Other (Left big toe necrosis) Neurological: Yes: Alert, Oriented Psychiatric: Yes: Alert, Oriented Labs: CBC, BMP 03/10/19 08:20 03/10/19 08:20 INR, PTT INR 1.06 (0.83-1.09) 03/09/19 05:55 Problem List - Problems (1) Diabetic ulcer of left great toe Assessment/Plan: -Podiatry consult -MRI LLE to r/o osteo Problems reviewed: Yes Code(s): E11.621 - TYPE 2 DIABETES MELLITUS WITH FOOT ULCER; L97.529 - NON- PRESSURE CHRONIC ULCER OTH PRT LEFT FOOT W UNSP SEVERITY (2) Acute metabolic encephalopathy Assessment/Plan: -Resolved -/2 to sepsis -IV abx Problems reviewed: Yes Code(s): G93.41 - METABOLIC ENCEPHALOPATHY (3) Altered mental status Problems reviewed: Yes Code(s): R41.82 - ALTERED MENTAL STATUS, UNSPECIFIED Qualifiers: Altered mental status type: disorientation Qualified Code(s): R41.0 - Disorientation, unspecified (4) Sepsis Assessment/Plan: -IV abx -ID on board -afebrile -leukocytosis resolved -LA normal -MRI LLE to r/ osteo Code(s): A41.9 - SEPSIS, UNSPECIFIED ORGANISM Qualifiers: Sepsis type: sepsis due to unspecified organism Sepsis acute organ dysfunction status: unspecified Qualified Code(s): A41.9 - Sepsis, unspecified organism (5) CKD (chronic kidney disease) Assessment/Plan: -nephrology on board -monitor trend Problems reviewed: Yes Code(s): N18.9 - CHRONIC KIDNEY DISEASE, UNSPECIFIED (6) Diabetes Assessment/Plan: 1c 12.6 -Endocrine consult appreciated -BGM AC HS -ISS -Diabetic low sodium diet -Levemir-increase to 24 U BID Code(s): E11.9 - TYPE 2 DIABETES MELLITUS WITHOUT COMPLICATIONS Qualifiers: Diabetes mellitus type: type 1 Diabetes mellitus complication status: with skin complications Diabetes mellitus complication detail: with foot ulcer Qualified Code(s): E10.621 - Type 1 diabetes mellitus with foot ulcer Assessment/Plan see problem list
[2019-03-10] MEDS: LACTATED RINGERS SOLUTION 1,000 ML/1,000 ML INFUS.BAG IV SCH (12:09)
[2019-03-10] MEDS ORDERED: SODIUM CHLORIDE 250 ML IV PRN (12:13)
--- NOTE | 2019-03-10 12:13 | PN ---
Progress Note, Physician History of Present Illness: Pt seen and examined at bedside. He is awake and alert today. He tolerated HD yesterday. - Current Medication List Current Medications: Active Medications Aspirin (Asa -) 81 mg PO DAILY [facility] Last Admin: 03/10/19 11:30 Dose: 81 mg Clopidogrel Bisulfate (Plavix -) 75 mg PO DAILY [facility] Last Admin: 03/10/19 11:30 Dose: 75 mg Collagenase (Santyl -) 1 applic TP DAILY [facility]; Protocol Heparin Sodium (Porcine) (Heparin -) 5,000 unit SQ BID [facility] Last Admin: 03/10/19 11:30 Dose: 5,000 unit Lactated Ringer's (Lactated Ringers Solution) 1,000 ml in 1,000 mls @ 42 mls/ hr IV ASDIR [facility] Last Admin: 03/10/19 12:09 Dose: Not Given Sodium Chloride (Normal Saline -) 250 mls @ 3,000 mls/hr IV PRN PRN PRN Reason: Hypotension during Dialysis Stop: 03/10/19 12:53 Piperacillin Sod/Tazobactam (Sod 2.25 gm/ Dextrose) 50 mls @ 100 mls/hr IVPB Q8H-IV [facility]; Protocol Last Admin: 03/10/19 11:29 Dose: 100 mls/hr Insulin Aspart (Novolog Vial Sliding Scale -) 1 vial SQ ACHS [facility]; Protocol Last Admin: 03/10/19 11:38 Dose: 9 units Insulin Detemir (Levemir Vial) 24 units SQ BID@0700,2200 [facility] - Objective Vital Signs: Vital Signs Temperature 98.1 F 03/10/19 06:00 Pulse Rate 80 03/10/19 06:00 Respiratory Rate 18 03/10/19 06:00 Blood Pressure 140/72 03/10/19 06:00 O2 Sat by Pulse Oximetry (%) 95 03/09/19 21:00 Constitutional: Yes: Calm Eyes: Yes: Conjunctiva Clear HENT: Yes: Atraumatic Neck: Yes: Supple Cardiovascular: Yes: S1, S2 Respiratory: Yes: CTA Bilaterally Gastrointestinal: Yes: Soft Genitourinary: Yes: WNL Musculoskeletal: Yes: WNL Extremities: Yes: Other (left great toe laceration) Edema: No Wound/Incision: Yes: Open to air Neurological: Yes: Oriented Psychiatric: Yes: Oriented Labs: CBC, BMP 03/10/19 08:20 03/10/19 08:20 INR, PTT INR 1.06 (0.83-1.09) 03/09/19 05:55 Problem List - Problems (1) Acute metabolic encephalopathy Code(s): G93.41 - METABOLIC ENCEPHALOPATHY (2) Altered mental status Code(s): R41.82 - ALTERED MENTAL STATUS, UNSPECIFIED Qualifiers: Altered mental status type: disorientation Qualified Code(s): R41.0 - Disorientation, unspecified (3) ESRD (end stage renal disease) Code(s): N18.6 - END STAGE RENAL DISEASE Assessment/Plan Current Medications Generic Name Dose Route Start Last Admin Trade Name Freq PRN Reason Stop Dose Admin Aspirin 81 mg 03/10/19 10:00 03/10/19 11:30 Asa - PO 81 mg DAILY [facility] Administration Clopidogrel Bisulfate 75 mg 03/10/19 10:00 03/10/19 11:30 Plavix - PO 75 mg DAILY [facility] Administration Collagenase 1 applic 03/10/19 10:00 Santyl - TP DAILY [facility] Protocol Heparin Sodium (Porcine) 5,000 unit 03/10/19 10:00 03/10/19 11:30 Heparin - SQ 5,000 unit BID [facility] Administration Lactated Ringer's 1,000 ml in 1,000 mls @ 42 mls/hr 03/09/19 12:06 03/10/19 12:09 Lactated Ringers Solution IV Not Given ASDIR [facility] Sodium Chloride 250 mls @ 3,000 mls/hr 03/09/19 12:52 Normal Saline - IV 03/10/19 12:53 PRN PRN Hypotension during Dialysis Piperacillin Sod/Tazobactam 50 mls @ 100 mls/hr 03/10/19 02:00 03/10/19 11:29 Sod 2.25 gm/ Dextrose IVPB 100 mls/hr Q8H-IV [facility] Administration Protocol Insulin Aspart 1 vial 03/09/19 23:12 03/10/19 11:38 Novolog Vial Sliding Scale - SQ 9 units ACHS [facility] Administration Protocol Insulin Detemir 24 units 03/10/19 11:45 Levemir Vial SQ BID@0700,2200 [facility] Impression 1. ESRD 2. PNA 3. DM 4. hhs 5. hyperlipidemia 6. HTN 7. hx of Wilms tumor, s/p left nephrectomy 8. dyspnea Plan - HD tomorrow - renal diet - endocrine eval - podiatry follow up - follow cultures - cont abx
--- NOTE | 2019-03-10 14:10 | PN ---
Progress Note, Physician Chief Complaint: no CP, SOB, palps - Current Medication List Current Medications: Active Medications Aspirin (Asa -) 81 mg PO DAILY [facility] Last Admin: 03/10/19 11:30 Dose: 81 mg Clopidogrel Bisulfate (Plavix -) 75 mg PO DAILY [facility] Last Admin: 03/10/19 11:30 Dose: 75 mg Collagenase (Santyl -) 1 applic TP DAILY [facility]; Protocol Epoetin Ulises (Epogen -) 2,000 unit IVPUSH ONCE ONE Stop: 03/11/19 12:14 Heparin Sodium (Porcine) (Heparin -) 5,000 unit SQ BID [facility] Last Admin: 03/10/19 11:30 Dose: 5,000 unit Heparin Sodium (Porcine) (Heparin -) 1,000 unit IVPUSH ONCE ONE Stop: 03/11/19 12:14 Lactated Ringer's (Lactated Ringers Solution) 1,000 ml in 1,000 mls @ 42 mls/ hr IV ASDIR [facility] Last Admin: 03/10/19 12:09 Dose: Not Given Piperacillin Sod/Tazobactam (Sod 2.25 gm/ Dextrose) 50 mls @ 100 mls/hr IVPB Q8H-IV [facility]; Protocol Last Admin: 03/10/19 11:29 Dose: 100 mls/hr Sodium Chloride (Normal Saline -) 250 mls @ 3,000 mls/hr IV PRN PRN PRN Reason: Hypotension during Dialysis Stop: 03/11/19 12:13 Insulin Aspart (Novolog Vial Sliding Scale -) 1 vial SQ ACHS [facility]; Protocol Last Admin: 03/10/19 11:38 Dose: 9 units Insulin Detemir (Levemir Vial) 24 units SQ BID@0700,2200 [facility] - Objective Vital Signs: Vital Signs Temperature 98.1 F 03/10/19 06:00 Pulse Rate 80 03/10/19 06:00 Respiratory Rate 18 03/10/19 06:00 Blood Pressure 140/72 03/10/19 06:00 O2 Sat by Pulse Oximetry (%) 95 03/09/19 21:00 Constitutional: Yes: No Distress Cardiovascular: Yes: Regular Rate and Rhythm Respiratory: Yes: CTA Bilaterally Gastrointestinal: Yes: Soft Edema: No Neurological: Yes: Alert, Oriented Labs: CBC, BMP 03/10/19 08:20 03/10/19 08:20 INR, PTT INR 1.06 (0.83-1.09) 03/09/19 05:55 Assessment/Plan mibi 04/2018 small area of mild ischemia anterior wall, EF 30% lower ext venous doppler: no DVT EKG: sinus tachy, no ischemic changes echo 12/2018: nl lv/rv, no sig valve path, mild ao root dil tele: sr cxr: clear lungs a/p: 63M h/o CKD, DM, HLD, HTN, wilm's tumor s/p nephrectomy, esrd on hd, chf, cad s/p pci (most recent was earlier this month, elective pci for chronic cad) here with ams. ams, sepsis: -infectious w/u, abx per crit care, ID elevated troponin: -borderline trop elevation with flat trend, similar to prior baseline values, not c/w acs chronic diastolic chf: -recent outpt echo unremarkable -vol stable here, cont hd per renal HTN - stable, continue home meds ESRD: -HD per renal HLD - cont statin when acute issues resolve cad s/p pci (most recent was earlier this month, elective pci for chronic cad): -no signs acs, no angina -cont uninterrupted dapt given recent pci
--- NOTE | 2019-03-10 14:59 | PN ---
Progress Note (short form) - Note Progress Note: reports he had stopped his insulin due to insurance issues came in with confusion and hyperglycemia notes ulcer on his toe last 3-4 months recent PCI Vital Signs Period Temp Pulse Resp BP Sys/Barrera Pulse Ox Last 24 Hr 97.7 F-99 F 80-108 17-20 102-155/60-82 95-97 cor-rrr lungs clear abd soft,nt ext left first toe with open ulcer- shallow, scant drainage-nontender, no odor CBC, BMP 03/10/19 08:20 03/10/19 08:20 Microbiology 03/09/19 00:00 Toe - Left Hallux Gram Stain - Final 03/09/19 00:00 Toe - Left Hallux Wound Culture - Preliminary Alpha Hemolytic Streptococcus Staphylococcus Coagulase Neg 03/08/19 17:15 Urine - Urine - Catheterized Urine Culture - Final NO GROWTH OBTAINED 03/08/19 15:30 Blood - Peripheral Venous Blood Culture - Preliminary NO GROWTH OBTAINED AFTER 24 HOURS, INCUBATION TO CONTINUE FOR 4 DAYS. 03/08/19 15:30 Blood - Peripheral Venous Blood Culture - Preliminary NO GROWTH OBTAINED AFTER 24 HOURS, INCUBATION TO CONTINUE FOR 4 DAYS. a/p fever-resolved, cultures negative ulcer left first toe, await MRI continue zosyn for now, got vancomycin yesterday esrd/hd- dialysis M/W/F diabetes/hyperglycemia-secondary to issues abtaining insulin cad- s/p recent PCI Problem List - Problems (1) Fever Code(s): R50.9 - FEVER, UNSPECIFIED (2) Acute metabolic encephalopathy Code(s): G93.41 - METABOLIC ENCEPHALOPATHY (3) ESRD (end stage renal disease) on dialysis Code(s): N18.6 - END STAGE RENAL DISEASE; Z99.2 - DEPENDENCE ON RENAL DIALYSIS (4) Diabetes Code(s): E11.9 - TYPE 2 DIABETES MELLITUS WITHOUT COMPLICATIONS Qualifiers: Diabetes mellitus type: type 1 Diabetes mellitus complication status: with skin complications Diabetes mellitus complication detail: with foot ulcer Qualified Code(s): E10.621 - Type 1 diabetes mellitus with foot ulcer
[2019-03-10] MEDS ORDERED: PT OWN MED DRAWER 7, Y5N ONE (17:08)
[2019-03-10] MEDS: COLLAGENASE CLOSTRIDIUM HIST. 30 GRAMS TUBE TP SCH (17:17)
--- NOTE | 2019-03-10 19:36 | PN ---
Progress Note, Physician Chief Complaint: Foul smelling left big toe with early gangrenous changes. - Current Medication List Current Medications: Active Medications Aspirin (Asa -) 81 mg PO DAILY [facility] Last Admin: 03/10/19 11:30 Dose: 81 mg Clopidogrel Bisulfate (Plavix -) 75 mg PO DAILY [facility] Last Admin: 03/10/19 11:30 Dose: 75 mg Collagenase (Santyl -) 1 applic TP DAILY [facility]; Protocol Last Admin: 03/10/19 17:17 Dose: 1 applic Epoetin Ulises (Epogen -) 2,000 unit IVPUSH ONCE ONE Stop: 03/11/19 12:14 Heparin Sodium (Porcine) (Heparin -) 5,000 unit SQ BID [facility] Last Admin: 03/10/19 11:30 Dose: 5,000 unit Heparin Sodium (Porcine) (Heparin -) 1,000 unit IVPUSH ONCE ONE Stop: 03/11/19 12:14 Lactated Ringer's (Lactated Ringers Solution) 1,000 ml in 1,000 mls @ 42 mls/ hr IV ASDIR [facility] Last Admin: 03/10/19 12:09 Dose: Not Given Piperacillin Sod/Tazobactam (Sod 2.25 gm/ Dextrose) 50 mls @ 100 mls/hr IVPB Q8H-IV [facility]; Protocol Last Admin: 03/10/19 17:17 Dose: 100 mls/hr Sodium Chloride (Normal Saline -) 250 mls @ 3,000 mls/hr IV PRN PRN PRN Reason: Hypotension during Dialysis Stop: 03/11/19 12:13 Insulin Aspart (Novolog Vial Sliding Scale -) 1 vial SQ ACHS [facility]; Protocol Last Admin: 03/10/19 17:17 Dose: 14 units Insulin Detemir (Levemir Vial) 24 units SQ BID@0700,2200 [facility] - Objective Vital Signs: Vital Signs Temperature 97.7 F 03/10/19 14:00 Pulse Rate 119 H 03/10/19 14:00 Respiratory Rate 18 03/10/19 14:00 Blood Pressure 119/82 03/10/19 14:00 O2 Sat by Pulse Oximetry (%) 97 03/10/19 09:00 Extremities: Yes: Other (vsgi, +foul smelling left big toe, om?, abscess?) Labs: CBC, BMP 03/10/19 08:20 03/10/19 08:20 INR, PTT INR 1.06 (0.83-1.09) 03/09/19 05:55 Assessment/Plan om? grade 3 wound left hallux necrosis/gangarene continue tam. read and appreciated vascular note. discussed with patient debridement and / or possible amputation of hallux. awaiting mri result. will follow.
[2019-03-10] MEDS ORDERED: INSULIN (NOVOLOG) ASPART 100 UNITS/ML 10ML VIAL SQ ONE (20:39)
[2019-03-10] MEDS: INSULIN (LEVEMIR) 100 UNITS/ML UNITS SQ SCH (21:05)
[2019-03-10] MEDS ORDERED: CHLORHEXIDINE GLUCONATE 4% CLEANSER FOR DECOLONIZATION TP SCH (22:00)
[2019-03-11] MEDS ORDERED: DEXTROSE 5%-WATER - 50 ML IVPB ONE ×2 (01:01→10:55)
[2019-03-11] MEDS ORDERED: PIPERACILLIN/TAZOBACTAM 2.25 GM VIAL IVPB ONE ×2 (01:01→10:55)
--- NOTE | 2019-03-11 01:47 | PN ---
Progress Note, Physician Chief Complaint: left big toe swelling and drainage foul smelling sugars higher - Current Medication List Current Medications: Active Medications Aspirin (Asa -) 81 mg PO DAILY [facility] Last Admin: 03/10/19 11:30 Dose: 81 mg Clopidogrel Bisulfate (Plavix -) 75 mg PO DAILY [facility] Last Admin: 03/10/19 11:30 Dose: 75 mg Collagenase (Santyl -) 1 applic TP DAILY [facility]; Protocol Last Admin: 03/10/19 17:17 Dose: 1 applic Epoetin Ulises (Epogen -) 2,000 unit IVPUSH ONCE ONE Stop: 03/11/19 12:14 Heparin Sodium (Porcine) (Heparin -) 5,000 unit SQ BID [facility] Last Admin: 03/10/19 21:16 Dose: 5,000 unit Heparin Sodium (Porcine) (Heparin -) 1,000 unit IVPUSH ONCE ONE Stop: 03/11/19 12:14 Lactated Ringer's (Lactated Ringers Solution) 1,000 ml in 1,000 mls @ 42 mls/ hr IV ASDIR [facility] Last Admin: 03/10/19 12:09 Dose: Not Given Piperacillin Sod/Tazobactam (Sod 2.25 gm/ Dextrose) 50 mls @ 100 mls/hr IVPB Q8H-IV [facility]; Protocol Last Admin: 03/10/19 17:17 Dose: 100 mls/hr Sodium Chloride (Normal Saline -) 250 mls @ 3,000 mls/hr IV PRN PRN PRN Reason: Hypotension during Dialysis Stop: 03/11/19 12:13 Insulin Aspart (Novolog Vial Sliding Scale -) 1 vial SQ ACHS [facility]; Protocol Last Admin: 03/10/19 21:15 Dose: 15 units Insulin Detemir (Levemir Vial) 35 units SQ BID@0700,2200 [facility] Last Admin: 03/10/19 21:05 Dose: 35 units - Objective Vital Signs: Vital Signs Temperature 98.8 F 03/10/19 23:00 Pulse Rate 83 03/10/19 23:00 Respiratory Rate 18 03/10/19 23:00 Blood Pressure 146/76 03/10/19 23:00 O2 Sat by Pulse Oximetry (%) 97 03/10/19 21:00 Constitutional: Yes: Anxious Eyes: Yes: EOM Intact HENT: Yes: Normocephalic Neck: Yes: Trachea Midline Cardiovascular: Yes: Regular Rate and Rhythm Respiratory: Yes: CTA Bilaterally Gastrointestinal: Yes: Normal Bowel Sounds ...Rectal Exam: Yes: Deferred Breast(s): Yes: WNL Extremities: Yes: Cool, Delayed Capillary Refill Edema: No Wound/Incision: Yes: Draining Neurological: Yes: Alert, Oriented Labs: CBC, BMP 03/10/19 08:20 03/10/19 08:20 INR, PTT INR 1.06 (0.83-1.09) 03/09/19 05:55 Problem List - Problems (1) Acute metabolic encephalopathy Code(s): G93.41 - METABOLIC ENCEPHALOPATHY (2) Altered mental status Code(s): R41.82 - ALTERED MENTAL STATUS, UNSPECIFIED Qualifiers: Altered mental status type: disorientation Qualified Code(s): R41.0 - Disorientation, unspecified (3) Hyponatremia Code(s): E87.1 - HYPO-OSMOLALITY AND HYPONATREMIA (4) Secondary diabetes with hyperglycemia hyperosmolar non-ketotic coma Code(s): E13.01 - OTH DIABETES MELLITUS WITH HYPEROSMOLARITY WITH COMA (5) Acute kidney injury superimposed on chronic kidney disease Code(s): N17.9 - ACUTE KIDNEY FAILURE, UNSPECIFIED; N18.9 - CHRONIC KIDNEY DISEASE, UNSPECIFIED (6) Acute renal failure Code(s): N17.9 - ACUTE KIDNEY FAILURE, UNSPECIFIED (7) Bronchopneumonia due to human metapneumovirus (hMPV) Code(s): J12.3 - HUMAN METAPNEUMOVIRUS PNEUMONIA (8) DM (diabetes mellitus), type 2 with hyperosmolarity Problems reviewed: Yes Code(s): E11.00 - TYPE 2 DIAB W HYPROSM W/O NONKET HYPRGLY-HYPROS COMA ([facility]) (9) Diabetic ulcer of left great toe Code(s): E11.621 - TYPE 2 DIABETES MELLITUS WITH FOOT ULCER; L97.529 - NON- PRESSURE CHRONIC ULCER OTH PRT LEFT FOOT W UNSP SEVERITY Assessment/Plan Current Active Problems Acute metabolic encephalopathy (Acute) Altered mental status (Acute) Diabetic ulcer of left great toe (Acute) Hyponatremia (Acute) Secondary diabetes with hyperglycemia hyperosmolar non-ketotic coma (Acute) Sepsis (Acute) Abnormal Lab Results 03/10/19 03/10/19 03/10/19 08:20 08:20 08:30 RBC 3.80 L Hgb 10.9 L Hct 31.9 L BUN 28.8 H Creatinine 4.6 H Random Glucose 283 H Hemoglobin A1c % 12.6 H AST 41 H Alkaline Phosphatase 151 H Total Protein 5.3 L Albumin 2.4 L Laboratory Results - last 24 hr 03/10/19 03/10/19 03/10/19 05:38 08:20 08:20 WBC 7.5 RBC 3.80 L Hgb 10.9 L Hct 31.9 L MCV 84.1 MCH 28.7 MCHC 34.1 RDW 13.6 Plt Count 190 MPV 7.9 Absolute Neuts (auto) 5.7 Neutrophils % 76.0 Lymphocytes % 12.2 Monocytes % 8.8 Eosinophils % 1.6 D Basophils % 1.4 Nucleated RBC % 0 Sodium 136 Potassium 3.7 Chloride 100 Carbon Dioxide 27 Anion Gap 9 BUN 28.8 H Creatinine 4.6 H Est GFR (CKD-EPI)AfAm 14.60 Est GFR (CKD-EPI)NonAf 12.60 POC Glucometer 321 Random Glucose 283 H Hemoglobin A1c % Calcium 8.6 Phosphorus 4.2 Magnesium 2.1 Total Bilirubin 0.5 AST 41 H ALT 19 Alkaline Phosphatase 151 H Total Protein 5.3 L Albumin 2.4 L 03/10/19 03/10/19 03/10/19 08:30 11:34 16:43 WBC RBC Hgb Hct MCV MCH MCHC RDW Plt Count MPV Absolute Neuts (auto) Neutrophils % Lymphocytes % Monocytes % Eosinophils % Basophils % Nucleated RBC % Sodium Potassium Chloride Carbon Dioxide Anion Gap BUN Creatinine Est GFR (CKD-EPI)AfAm Est GFR (CKD-EPI)NonAf POC Glucometer 302 443 Random Glucose Hemoglobin A1c % 12.6 H Calcium Phosphorus Magnesium Total Bilirubin AST ALT Alkaline Phosphatase Total Protein Albumin 03/10/19 03/10/19 20:03 21:03 WBC RBC Hgb Hct MCV MCH MCHC RDW Plt Count MPV Absolute Neuts (auto) Neutrophils % Lymphocytes % Monocytes % Eosinophils % Basophils % Nucleated RBC % Sodium Potassium Chloride Carbon Dioxide Anion Gap BUN Creatinine Est GFR (CKD-EPI)AfAm Est GFR (CKD-EPI)NonAf POC Glucometer 472 419 Random Glucose Hemoglobin A1c % Calcium Phosphorus Magnesium Total Bilirubin AST ALT Alkaline Phosphatase Total Protein Albumin plan: bgm coverage scale adjustment levemir 35 units bid titrate doses of insulin as needed to control fasting below 120mg/ld podiatry appreciated wound care
[2019-03-11] MEDS: PIPERACILLIN/TAZOB 2.25 GM 2.25 GM in DEXTROSE 5%-WATER - 50 ML IVPB SCH ×2 (02:30→11:03)
[2019-03-11] MEDS: LACTATED RINGERS SOLUTION 1,000 ML/1,000 ML INFUS.BAG IV SCH (02:56)
[2019-03-11] MEDS: INSULIN (LEVEMIR) 100 UNITS/ML UNITS SQ SCH ×2 (06:25→22:52)
[2019-03-11] MEDS: INSULIN SLIDING SCALE (NOVOLOG) 1 VIAL SQ SCH ×4 (06:26→22:25)
--- NOTE | 2019-03-11 08:45 | PN ---
Progress Note (short form) - Note Progress Note: Resting in NAD on RA. No CP or SOB or cough. No acute events overnight. Intake & Output 03/08/19 03/09/19 03/10/19 03/11/19 23:59 23:59 23:59 23:59 Intake Total 0 2636 780 400 Output Total 2200 930 Balance 0 436 -150 400 Weight 191 lb 1.6 oz 212 lb 212 lb Last Vital Signs Temp Pulse Resp BP Pulse Ox 98.8 F 85 18 153/71 97 03/11/19 07:00 03/11/19 07:00 03/11/19 07:00 03/11/19 07:00 03/10/19 21:00 Active Medications Aspirin (Asa -) 81 mg PO DAILY [facility] Last Admin: 03/10/19 11:30 Dose: 81 mg Clopidogrel Bisulfate (Plavix -) 75 mg PO DAILY [facility] Last Admin: 03/10/19 11:30 Dose: 75 mg Collagenase (Santyl -) 1 applic TP DAILY [facility]; Protocol Last Admin: 03/10/19 17:17 Dose: 1 applic Epoetin Ulises (Epogen -) 2,000 unit IVPUSH ONCE ONE Stop: 03/11/19 12:14 Heparin Sodium (Porcine) (Heparin -) 5,000 unit SQ BID [facility] Last Admin: 03/10/19 21:16 Dose: 5,000 unit Heparin Sodium (Porcine) (Heparin -) 1,000 unit IVPUSH ONCE ONE Stop: 03/11/19 12:14 Lactated Ringer's (Lactated Ringers Solution) 1,000 ml in 1,000 mls @ 42 mls/ hr IV ASDIR [facility] Last Admin: 03/11/19 02:56 Dose: 42 mls/hr Piperacillin Sod/Tazobactam (Sod 2.25 gm/ Dextrose) 50 mls @ 100 mls/hr IVPB Q8H-IV [facility]; Protocol Last Admin: 03/11/19 02:30 Dose: 100 mls/hr Sodium Chloride (Normal Saline -) 250 mls @ 3,000 mls/hr IV PRN PRN PRN Reason: Hypotension during Dialysis Stop: 03/11/19 12:13 Insulin Aspart (Novolog Vial Sliding Scale -) 1 vial SQ ACHS [facility]; Protocol Last Admin: 03/11/19 06:26 Dose: 8 units Insulin Detemir (Levemir Vial) 35 units SQ BID@0700,2200 [facility] Last Admin: 03/11/19 06:25 Dose: 35 units Gen: NAD at rest Heart: RRR Lung: decreased breath sounds at the bases Abd: soft, nontender Ext: no edema Laboratory Results - last 24 hr 03/09/19 03/10/19 03/10/19 16:00 08:20 08:20 WBC 7.5 RBC 3.80 L Hgb 10.9 L Hct 31.9 L MCV 84.1 MCH 28.7 MCHC 34.1 RDW 13.6 Plt Count 190 MPV 7.9 Absolute Neuts (auto) 5.7 Neutrophils % 76.0 Lymphocytes % 12.2 Monocytes % 8.8 Eosinophils % 1.6 D Basophils % 1.4 Nucleated RBC % 0 Sodium 136 Potassium 3.7 Chloride 100 Carbon Dioxide 27 Anion Gap 9 BUN 28.8 H Creatinine 4.6 H Est GFR (CKD-EPI)AfAm 14.60 Est GFR (CKD-EPI)NonAf 12.60 POC Glucometer Random Glucose 283 H Hemoglobin A1c % Calcium 8.6 Phosphorus 4.2 Magnesium 2.1 Total Bilirubin 0.5 AST 41 H ALT 19 Alkaline Phosphatase 151 H Total Protein 5.3 L Albumin 2.4 L Hep Bs Antigen Negative Hep C Ab Diagnostic 0.2 03/10/19 03/10/19 03/10/19 08:30 11:34 16:43 WBC RBC Hgb Hct MCV MCH MCHC RDW Plt Count MPV Absolute Neuts (auto) Neutrophils % Lymphocytes % Monocytes % Eosinophils % Basophils % Nucleated RBC % Sodium Potassium Chloride Carbon Dioxide Anion Gap BUN Creatinine Est GFR (CKD-EPI)AfAm Est GFR (CKD-EPI)NonAf POC Glucometer 302 443 Random Glucose Hemoglobin A1c % 12.6 H Calcium Phosphorus Magnesium Total Bilirubin AST ALT Alkaline Phosphatase Total Protein Albumin Hep Bs Antigen Hep C Ab Diagnostic 03/10/19 03/10/19 03/11/19 20:03 21:03 05:27 WBC RBC Hgb Hct MCV MCH MCHC RDW Plt Count MPV Absolute Neuts (auto) Neutrophils % Lymphocytes % Monocytes % Eosinophils % Basophils % Nucleated RBC % Sodium Potassium Chloride Carbon Dioxide Anion Gap BUN Creatinine Est GFR (CKD-EPI)AfAm Est GFR (CKD-EPI)NonAf POC Glucometer 472 419 167 Random Glucose Hemoglobin A1c % Calcium Phosphorus Magnesium Total Bilirubin AST ALT Alkaline Phosphatase Total Protein Albumin Hep Bs Antigen Hep C Ab Diagnostic ASSESSMENT AND PLAN: Hyperglycemic Hyperosmolar Syndrome improving r/o Pneumonia LV Diastolic Dysfuntion CAD +Troponins likely Demand Ischemia HTN Hyperlipidemia DM h/o Wilm's Tumor s/p Nephrectomy ESRD on HD Hyponatremia - on empiric antibiotics - HD per renal - glucose control - O2 to keep SpO2 >90% - DVT prophylaxis Dr Mckeon
[2019-03-11 09:01] LABS: BASO % 1.8 % (0-2.0); EOS % 4.7 % (0-4.5); HEMOGLOBIN 11.1 GM/dL (11.7-16.9); LYMPH % 14.9 % (8-40); MCH 28.1 pg (25.7-33.7); MCHC 33.6 g/dl (32.0-35.9); MEAN CELL VOLUME 83.5 fl (80-96); MEAN PLT VOLUME 7.7 fl (7.5-11.1); MONO % 8.1 % (3.8-10.2); NEUT % 70.5 % (42.8-82.8); PLATELET COUNT 208 K/MM3 (134-434); RBC 3.95 M/mm3 (4.00-5.60); RDW 13.4 % (11.9-15.9); WHITE BLOOD COUNT 6.5 K/mm3 (4.0-10.0)
[2019-03-11 10:05] LABS: ALBUMIN 2.7 g/dl (3.4-5.0); BILIRUBIN,TOTAL 0.4 mg/dL (0.2-1); BLOOD UREA NITROGEN 31.6 mg/dL (7-18); CALCIUM 8.9 mg/dL (8.5-10.1); CREATININE 4.9 mg/dL (0.55-1.3); POTASSIUM 3.7 mmol/L (3.5-5.1); TOT PROT 5.6 g/dl (6.4-8.2)
--- NOTE | 2019-03-11 10:30 | PN ---
Progress Note, Physician Chief Complaint: Fall Syncope L big toe diabetic ulcer History of Present Illness: NAD in bed denies any pain, N/V/SOB/dizziness BGMS elevated yesterday during the day Levemir adjusted Awaiting MRI LLE results, called [facility] radiology Going for HD today - Current Medication List Current Medications: Active Medications Aspirin (Asa -) 81 mg PO DAILY [facility] Last Admin: 03/10/19 11:30 Dose: 81 mg Clopidogrel Bisulfate (Plavix -) 75 mg PO DAILY [facility] Last Admin: 03/10/19 11:30 Dose: 75 mg Collagenase (Santyl -) 1 applic TP DAILY [facility]; Protocol Last Admin: 03/10/19 17:17 Dose: 1 applic Epoetin Ulises (Epogen -) 2,000 unit IVPUSH ONCE ONE Stop: 03/11/19 12:14 Heparin Sodium (Porcine) (Heparin -) 5,000 unit SQ BID [facility] Last Admin: 03/10/19 21:16 Dose: 5,000 unit Heparin Sodium (Porcine) (Heparin -) 1,000 unit IVPUSH ONCE ONE Stop: 03/11/19 12:14 Lactated Ringer's (Lactated Ringers Solution) 1,000 ml in 1,000 mls @ 42 mls/ hr IV ASDIR [facility] Last Admin: 03/11/19 02:56 Dose: 42 mls/hr Piperacillin Sod/Tazobactam (Sod 2.25 gm/ Dextrose) 50 mls @ 100 mls/hr IVPB Q8H-IV [facility]; Protocol Last Admin: 03/11/19 02:30 Dose: 100 mls/hr Sodium Chloride (Normal Saline -) 250 mls @ 3,000 mls/hr IV PRN PRN PRN Reason: Hypotension during Dialysis Stop: 03/11/19 12:13 Insulin Aspart (Novolog Vial Sliding Scale -) 1 vial SQ ACHS [facility]; Protocol Last Admin: 03/11/19 06:26 Dose: 8 units Insulin Detemir (Levemir Vial) 35 units SQ BID@0700,2200 [facility] Last Admin: 03/11/19 06:25 Dose: 35 units - Objective Vital Signs: Vital Signs Temperature 98.8 F 03/11/19 07:00 Pulse Rate 85 03/11/19 07:00 Respiratory Rate 18 03/11/19 07:00 Blood Pressure 153/71 03/11/19 07:00 O2 Sat by Pulse Oximetry (%) 97 03/10/19 21:00 Constitutional: Yes: Well Nourished, No Distress, Calm Cardiovascular: Yes: Regular Rate and Rhythm Respiratory: Yes: Regular Gastrointestinal: Yes: WNL, Normal Bowel Sounds, Soft Musculoskeletal: Yes: WNL Extremities: Yes: Other (Left big toe necrosis) Edema: No Peripheral Pulses WNL: Yes Neurological: Yes: Alert, Oriented Psychiatric: Yes: Alert, Oriented Labs: CBC, BMP 03/11/19 07:43 03/11/19 07:43 INR, PTT INR 1.06 (0.83-1.09) 03/09/19 05:55 Problem List - Problems (1) Diabetic ulcer of left great toe Assessment/Plan: -Podiatry consult -MRI LLE to r/o osteo-results pending Problems reviewed: Yes Code(s): E11.621 - TYPE 2 DIABETES MELLITUS WITH FOOT ULCER; L97.529 - NON- PRESSURE CHRONIC ULCER OTH PRT LEFT FOOT W UNSP SEVERITY (2) Acute metabolic encephalopathy Assessment/Plan: -Resolved -/2 to sepsis -IV abx Problems reviewed: Yes Code(s): G93.41 - METABOLIC ENCEPHALOPATHY (3) Altered mental status Problems reviewed: Yes Code(s): R41.82 - ALTERED MENTAL STATUS, UNSPECIFIED Qualifiers: Altered mental status type: disorientation Qualified Code(s): R41.0 - Disorientation, unspecified (4) Sepsis Assessment/Plan: -IV abx -ID on board -afebrile -leukocytosis resolved -LA normal -MRI LLE to r/ osteo Problems reviewed: Yes Code(s): A41.9 - SEPSIS, UNSPECIFIED ORGANISM Qualifiers: Sepsis type: sepsis due to unspecified organism Sepsis acute organ dysfunction status: unspecified Qualified Code(s): A41.9 - Sepsis, unspecified organism (5) Diabetes Assessment/Plan: 1c 12.6 -Endocrine consult appreciated -BGM AC HS -ISS -Diabetic low sodium diet -Levemir-increase to 24 U BID Problems reviewed: Yes Code(s): E11.9 - TYPE 2 DIABETES MELLITUS WITHOUT COMPLICATIONS Qualifiers: Diabetes mellitus type: type 1 Diabetes mellitus complication status: with skin complications Diabetes mellitus complication detail: with foot ulcer Qualified Code(s): E10.621 - Type 1 diabetes mellitus with foot ulcer (6) ESRD (end stage renal disease) Assessment/Plan: -nephrology on board -monitor trend -HD today-MWF Problems reviewed: Yes Code(s): N18.6 - END STAGE RENAL DISEASE Assessment/Plan see problem list Physical therapy
[2019-03-11] MEDS: ASPIRIN 81 MG CHEWABLE TABLETS PO SCH (11:03)
[2019-03-11] MEDS: HEPARIN NA (PORCINE) 5,000 UNITS/ML 1ML VIAL SQ SCH ×2 (11:04→22:24)
[2019-03-11] MEDS: CLOPIDOGREL BISULFATE 75 MG TABLET (FP) PO SCH (11:04)
[2019-03-11] MEDS ORDERED: INSULIN (NOVOLOG) ASPART 100 UNITS/ML 10ML VIAL ONE (12:02)
--- NOTE | 2019-03-11 12:04 | PN ---
Progress Note, Physician Chief Complaint: Foul smelling left big toe with early gangrenous changes. - Current Medication List Current Medications: Active Medications Aspirin (Asa -) 81 mg PO DAILY [facility] Last Admin: 03/11/19 11:03 Dose: 81 mg Clopidogrel Bisulfate (Plavix -) 75 mg PO DAILY [facility] Last Admin: 03/11/19 11:04 Dose: 75 mg Collagenase (Santyl -) 1 applic TP DAILY [facility]; Protocol Last Admin: 03/10/19 17:17 Dose: 1 applic Epoetin Ulises (Epogen -) 2,000 unit IVPUSH ONCE ONE Stop: 03/11/19 12:14 Heparin Sodium (Porcine) (Heparin -) 5,000 unit SQ BID [facility] Last Admin: 03/11/19 11:04 Dose: 5,000 unit Heparin Sodium (Porcine) (Heparin -) 1,000 unit IVPUSH ONCE ONE Stop: 03/11/19 12:14 Lactated Ringer's (Lactated Ringers Solution) 1,000 ml in 1,000 mls @ 42 mls/ hr IV ASDIR [facility] Last Admin: 03/11/19 02:56 Dose: 42 mls/hr Piperacillin Sod/Tazobactam (Sod 2.25 gm/ Dextrose) 50 mls @ 100 mls/hr IVPB Q8H-IV [facility]; Protocol Last Admin: 03/11/19 11:03 Dose: 100 mls/hr Sodium Chloride (Normal Saline -) 250 mls @ 3,000 mls/hr IV PRN PRN PRN Reason: Hypotension during Dialysis Stop: 03/11/19 12:13 Insulin Aspart (Novolog Vial Sliding Scale -) 1 vial SQ ACHS [facility]; Protocol Last Admin: 03/11/19 06:26 Dose: 8 units Insulin Detemir (Levemir Vial) 35 units SQ BID@0700,2200 [facility] Last Admin: 03/11/19 06:25 Dose: 35 units - Objective Vital Signs: Vital Signs Temperature 98.3 F 03/11/19 10:58 Pulse Rate 97 H 03/11/19 10:58 Respiratory Rate 20 03/11/19 10:58 Blood Pressure 149/72 03/11/19 10:58 O2 Sat by Pulse Oximetry (%) 97 03/10/19 21:00 Extremities: Yes: Other (MRI, +om left hallux, +necrotic foul smelling toe,) Labs: CBC, BMP 03/11/19 07:43 03/11/19 07:43 INR, PTT INR 1.06 (0.83-1.09) 03/09/19 05:55 Assessment/Plan om grade 3 wound left hallux necrosis/gangarene Discussed with patient tx options. Including debridement and possible amputation. Discussed with ID. Pt had recent stent procedure and is on plavix will need clearance from Cardiology and dc of plavix for 2 days before sx. Cardiology consult ordered. continue santyl. If cardiology does not clear will tx with hbo and Ivabx. HBO consult ordered. On schedule right now for Saturday but will have to change due to plavix hx.
[2019-03-11] MEDS ORDERED: EPOETIN ALFA 2,000 UNIT/1 ML VIAL IVPUSH ONE (12:45)
[2019-03-11] MEDS ORDERED: HEPARIN NA (PORCINE) 5,000 UNITS/ML 1ML VIAL IVPUSH ONE (12:45)
--- NOTE | 2019-03-11 13:31 | PN ---
Progress Note (short form) - Note Progress Note: ON HD alert NAD recent PCI Vital Signs Period Temp Pulse Resp BP Sys/Barrera Pulse Ox Last 24 Hr 97.7 F-98.8 F 83-119 18-20 119-153/53-82 97 cor-rrr lungs clear abd soft,nt ext no edema toe with superficial ulcer unchanged- scant drainage noted CBC, BMP 03/11/19 07:43 03/11/19 07:43 Microbiology 03/09/19 00:00 Toe - Left Hallux Gram Stain - Final 03/09/19 00:00 Toe - Left Hallux Wound Culture - Final Alpha Hemolytic Streptococcus Staphylococcus Coagulase Neg 03/08/19 15:30 Blood - Peripheral Venous Blood Culture - Preliminary NO GROWTH OBTAINED AFTER 48 HOURS, INCUBATION TO CONTINUE FOR 3 DAYS. 03/08/19 15:30 Blood - Peripheral Venous Blood Culture - Preliminary NO GROWTH OBTAINED AFTER 48 HOURS, INCUBATION TO CONTINUE FOR 3 DAYS. 03/08/19 17:15 Urine - Urine - Catheterized Urine Culture - Final NO GROWTH OBTAINED MRI- cellulitis of the first toe with very early osteo of the distal tuft a/p fever-resolved, cultures negative ulcer left first toe, very early osteo on MRI d/w dr vilchis- he will decide regarding debridement- he will speak with cardiology for now gram positive organisms in the wound only continue vanco with HD d/c zosyn esrd/hd- dialysis M/W/F diabetes/hyperglycemia-secondary to issues abtaining insulin cad- s/p recent PCI d/w hospitalist Problem List - Problems (1) Fever Code(s): R50.9 - FEVER, UNSPECIFIED (2) Acute metabolic encephalopathy Code(s): G93.41 - METABOLIC ENCEPHALOPATHY (3) ESRD (end stage renal disease) on dialysis Code(s): N18.6 - END STAGE RENAL DISEASE; Z99.2 - DEPENDENCE ON RENAL DIALYSIS (4) Diabetes Code(s): E11.9 - TYPE 2 DIABETES MELLITUS WITHOUT COMPLICATIONS Qualifiers: Diabetes mellitus type: type 1 Diabetes mellitus complication status: with skin complications Diabetes mellitus complication detail: with foot ulcer Qualified Code(s): E10.621 - Type 1 diabetes mellitus with foot ulcer
--- NOTE | 2019-03-11 13:35 | ECHO ---
Name: MARIA DEL CARMENALFRED Exam:Adult Echocardiogram Study Date: 03/11/2019 09:50 AM Age: 63 yrs Reason For Study: sepsis, PCI Height: 68 in Weight: 212 lb BSA: 2.1 m2 MMode/2D Measurements & Calculations IVSd: 1.4 cm Ao root diam: 3.7 cm LVIDd: 4.9 cm LA dimension: 4.7 cm LVIDs: 3.3 cm ACS: 2.1 cm LVPWd: 1.1 cm EDV(Teich): 110.5 ml LVOT diam: 2.5 cm ESV(Teich): 43.2 ml LVLd ap4: 7.6 cm SV(MOD-sp4): 74.3 ml EDV(MOD-sp4): 122.0 ml LVLs ap4: 6.6 cm ESV(MOD-sp4): 47.7 ml LAV (MOD-bp): 36.9 ml RV S Ochoa: 15.8 cm/sec Doppler Measurements & Calculations MV E max ochoa: 39.3 cm/sec MV dec slope: 206.6 cm/sec2 MV A max ochoa: 81.0 cm/sec MV E/A: 0.49 MV dec time: 0.18 sec Ao V2 max: 92.3 cm/sec LV V1 max P.9 mmHg Ao max P.4 mmHg LV V1 mean P.5 mmHg Ao V2 mean: 62.3 cm/sec LV V1 max: 85.9 cm/sec Ao mean P.8 mmHg LV V1 mean: 55.3 cm/sec Ao V2 VTI: 14.5 cm LV V1 VTI: 15.4 cm DAYANA(I,D): 5.1 cm2 DAYANA(V,D): 4.5 cm2 SV(LVOT): 74.1 ml TR max ochoa: 222.6 cm/sec TR max P.8 mmHg PA V2 max: 103.2 cm/sec PI end-d ochoa: 92.3 cm/sec PA max P.3 mmHg PA acc time: 0.12 sec Med Peak E' Ochoa: 4.0 cm/sec PA pr(Accel): 26.7 mmHg Med E/e': 9.8 Lat Peak E' Ochoa: 5.7 cm/sec Lat E/e': 6.9 Procedure A two-dimensional transthoracic echocardiogram with color flow and Doppler was performed. The study w as technically difficult with many images being suboptimal in quality. Left Ventricle The left ventricular size, thickness and function are normal. The left ventricle is not well visualiz ed. The left ventricular ejection fraction is normal. E/A reversal consistent with but not diagnostic of poor LV compliance. Regional wall motion abnormalities cannot be excluded due to limited visualization. Right Ventricle The right ventricle is not well visualized. Atria The left atrium is moderately dilated. The right atrium is moderately dilated. Mitral Valve There is trivial mitral valve thickening. There is no mitral valve stenosis. There is trace to mild m itral regurgitation. Tricuspid Valve The tricuspid valve is not well visualized. There is no tricuspid stenosis. There was insufficient TR detected to calculate RV systolic pressure. Aortic Valve The aortic valve is trileaflet. There is discrete nodular thickening of the left coronary cusp. There is mild aortic valve thickening. There is mild aortic sclerosis.;. No hemodynamically significant valvular ao rtic stenosis. No aortic regurgitation is present. Pulmonic Valve The pulmonic valve is not well visualized. Great Vessels Mild aortic root dilatation. Pericardium/Pleura There is no pericardial effusion. Interpretation Summary The left ventricular size, thickness and function are normal The left ventricular ejection fraction is normal. Mild aortic root dilatation. The aortic valve is trileaflet. There is discrete nodular thickening of the left coronary cusp. There is mild aortic valve thickening. There is mild aortic sclerosis.; The study was technically difficult with many images being suboptimal in quality. The left atrium is moderately dilated. The right atrium is moderately dilated. The left ventricle is not well visualized. Regional wall motion abnormalities cannot be excluded due to limited visualization. E/A reversal consistent with but not diagnostic of poor LV compliance There is trace to mild mitral regurgitation. There was insufficient TR detected to calculate RV systolic pressure. MD Andrew Mixon 03/11/2019 01:35 PM
[2019-03-11] MEDS ORDERED: VANCOMYCIN 1 GRAM (PRE-DOCKED) 1,000 MG/250 ML BAG IVPB ONE (14:00)
--- NOTE | 2019-03-11 14:16 | PN ---
Progress Note (short form) - Note Progress Note: s: no cp sob palps dizzy Current Medications Generic Name Dose Route Start Last Admin Trade Name Shilpa PRN Reason Stop Dose Admin Aspirin 81 mg 03/10/19 10:00 03/11/19 11:03 Asa - PO 81 mg DAILY [facility] Administration Clopidogrel Bisulfate 75 mg 03/10/19 10:00 03/11/19 11:04 Plavix - PO 75 mg DAILY [facility] Administration Collagenase 1 applic 03/10/19 10:00 03/10/19 17:17 Santyl - TP 1 applic DAILY [facility] Administration Protocol Heparin Sodium (Porcine) 5,000 unit 03/10/19 10:00 03/11/19 11:04 Heparin - SQ 5,000 unit BID [facility] Administration Vancomycin HCl 1,000 mg in 250 mls @ 166.667 mls/hr 03/11/19 14:00 Vancomycin (Pre-Docked) IVPB 03/11/19 15:29 ONCE ONE Protocol Insulin Aspart 1 vial 03/10/19 22:00 03/11/19 12:04 Novolog Vial Sliding Scale - SQ 9 units ACHS EDWARD Administration Protocol Insulin Detemir 35 units 03/10/19 22:00 03/11/19 06:25 Levemir Vial SQ 35 units BID@0700,2200 [facility] Administration Vital Signs Period Temp Pulse Resp BP Sys/Barrera Pulse Ox Last 24 Hr 98.2 F-98.8 F 80-97 18-20 122-153/53-79 97 Constitutional: Yes: No Distress Cardiovascular: Yes: Regular Rate and Rhythm Respiratory: Yes: CTA Bilaterally Gastrointestinal: Yes: Soft Edema: No no jaundice diaphoresis Neurological: Yes: Alert, Oriented Labs: CBC, BMP 03/11/19 07:43 03/11/19 07:43 mibi 04/2018 small area of mild ischemia anterior wall, EF 30% lower ext venous doppler: no DVT EKG: sinus tachy, no ischemic changes echo 12/2018: nl lv/rv, no sig valve path, mild ao root dil cxr: clear lungs a/p: 63M h/o CKD, DM, HLD, HTN, wilm's tumor s/p nephrectomy, esrd on hd, chf, cad s/p pci (most recent was earlier this month, elective pci for chronic cad) here with ams. ams, sepsis: -infectious w/u, abx per ID -likely source is toe elevated troponin: -borderline trop elevation with flat trend, similar to prior baseline values, not c/w acs chronic diastolic chf: -recent outpt echo unremarkable -vol stable here, cont hd per renal HTN - stable, on norvasc and nitrate at home, holding in setting of sepsis ESRD: -HD per renal HLD - cont statin when acute issues resolve cad s/p pci (most recent was earlier this month, elective pci for chronic cad): -no signs acs, no angina -cont uninterrupted dapt given recent pci
[2019-03-11] MEDS: COLLAGENASE CLOSTRIDIUM HIST. 30 GRAMS TUBE TP SCH (17:51)
--- NOTE | 2019-03-11 17:59 | PN ---
Progress Note, Physician History of Present Illness: Pt seen and examined at bedside. He is awake and alert. He denies shortness of breath. - Current Medication List Current Medications: Active Medications Aspirin (Asa -) 81 mg PO DAILY [facility] Last Admin: 03/11/19 11:03 Dose: 81 mg Clopidogrel Bisulfate (Plavix -) 75 mg PO DAILY [facility] Last Admin: 03/11/19 11:04 Dose: 75 mg Collagenase (Santyl -) 1 applic TP DAILY [facility]; Protocol Last Admin: 03/10/19 17:17 Dose: 1 applic Heparin Sodium (Porcine) (Heparin -) 5,000 unit SQ BID [facility] Last Admin: 03/11/19 11:04 Dose: 5,000 unit Insulin Aspart (Novolog Vial Sliding Scale -) 1 vial SQ ACHS [facility]; Protocol Last Admin: 03/11/19 17:41 Dose: 7 units Insulin Detemir (Levemir Vial) 35 units SQ BID@0700,2200 [facility] Last Admin: 03/11/19 06:25 Dose: 35 units - Objective Vital Signs: Vital Signs Temperature 98.2 F 03/11/19 12:45 Pulse Rate 94 H 03/11/19 15:52 Respiratory Rate 18 03/11/19 15:52 Blood Pressure 133/73 03/11/19 15:52 O2 Sat by Pulse Oximetry (%) 97 03/10/19 21:00 Constitutional: Yes: Calm Eyes: Yes: Conjunctiva Clear Neck: Yes: Supple Cardiovascular: Yes: S1, S2 Respiratory: Yes: CTA Bilaterally Gastrointestinal: Yes: Soft Genitourinary: Yes: WNL Musculoskeletal: Yes: WNL Edema: No Neurological: Yes: Oriented Psychiatric: Yes: Oriented Labs: CBC, BMP 03/11/19 07:43 03/11/19 07:43 INR, PTT INR 1.06 (0.83-1.09) 03/09/19 05:55 Problem List - Problems (1) Acute metabolic encephalopathy Code(s): G93.41 - METABOLIC ENCEPHALOPATHY (2) Altered mental status Code(s): R41.82 - ALTERED MENTAL STATUS, UNSPECIFIED Qualifiers: Altered mental status type: disorientation Qualified Code(s): R41.0 - Disorientation, unspecified (3) ESRD (end stage renal disease) Code(s): N18.6 - END STAGE RENAL DISEASE Assessment/Plan Current Medications Generic Name Dose Route Start Last Admin Trade Name Shilpa PRN Reason Stop Dose Admin Aspirin 81 mg 03/10/19 10:00 03/11/19 11:03 Asa - PO 81 mg DAILY [facility] Administration Clopidogrel Bisulfate 75 mg 03/10/19 10:00 03/11/19 11:04 Plavix - PO 75 mg DAILY [facility] Administration Collagenase 1 applic 03/10/19 10:00 03/11/19 17:51 Santyl - TP 1 applic DAILY [facility] Administration Protocol Heparin Sodium (Porcine) 5,000 unit 03/10/19 10:00 03/11/19 11:04 Heparin - SQ 5,000 unit BID [facility] Administration Insulin Aspart 1 vial 03/10/19 22:00 03/11/19 17:41 Novolog Vial Sliding Scale - SQ 7 units ACHS [facility] Administration Protocol Insulin Detemir 35 units 03/10/19 22:00 03/11/19 06:25 Levemir Vial SQ 35 units BID@0700,2200 [facility] Administration Impression 1. ESRD 2. PNA 3. DM 4. hhs 5. hyperlipidemia 6. HTN 7. hx of Wilms tumor, s/p left nephrectomy 8. dyspnea Plan - HD today - podiatry follow up - renal diet - cont abx
[2019-03-12] MEDS: INSULIN (LEVEMIR) 100 UNITS/ML UNITS SQ SCH ×2 (06:50→21:24)
[2019-03-12] MEDS: INSULIN SLIDING SCALE (NOVOLOG) 1 VIAL SQ SCH ×5 (06:52→21:26)
[2019-03-12] MEDS ORDERED: INSULIN (NOVOLOG) ASPART 100 UNITS/ML 10ML VIAL ONE ×3 (07:55→17:04)
[2019-03-12] MEDS ORDERED: PT OWN MED DRAWER 7, Y5N ONE (07:55)
[2019-03-12] MEDS: HEPARIN NA (PORCINE) 5,000 UNITS/ML 1ML VIAL SQ SCH ×2 (10:03→21:23)
--- NOTE | 2019-03-12 10:31 | PN ---
Progress Note (short form) - Note Progress Note: Resting in NAD on RA. No CP or SOB or cough. No acute events overnight. Intake & Output 03/09/19 03/10/19 03/11/19 03/12/19 23:59 23:59 23:59 23:59 Intake Total 2636 780 1326 220 Output Total 2200 930 1500 500 Balance 436 -150 -174 -280 Weight 212 lb 212 lb 192 lb 6 oz Last Vital Signs Temp Pulse Resp BP Pulse Ox 98.1 F 96 H 20 137/62 96 03/12/19 09:53 03/12/19 09:53 03/12/19 09:53 03/12/19 09:53 03/11/19 21:00 Active Medications Aspirin (Asa -) [address] [facility] Last Admin: 03/11/19 11:03 Dose: 81 mg Clopidogrel Bisulfate (Plavix -) [address] [facility] Last Admin: 03/11/19 11:04 Dose: 75 mg Collagenase (Santyl -) [address] [facility]; Protocol Last Admin: 03/11/19 17:51 Dose: 1 applic Heparin Sodium (Porcine) (Heparin -) 5,[address] [facility] Last Admin: 03/12/19 10:03 Dose: 5,000 unit Insulin Aspart (Novolog Vial Sliding Scale -) [address] [facility]; Protocol Last Admin: 03/12/19 06:52 Dose: 7 units Insulin Detemir (Levemir Vial) 35 units SQ BID@0700,2200 [facility] Last Admin: 03/12/19 06:50 Dose: 35 units Gen: NAD at rest Heart: RRR Lung: decreased breath sounds at the bases Abd: soft, nontender Ext: no edema Laboratory Results - last 24 hr 03/11/19 03/11/19 03/11/19 11:58 17:39 22:20 POC Glucometer 223 102 80 03/12/19 06:04 POC Glucometer 134 ASSESSMENT AND PLAN: Hyperglycemic Hyperosmolar Syndrome improving Low suspicion of Pneumonia LV Diastolic Dysfuntion CAD +Troponins likely Demand Ischemia HTN Hyperlipidemia DM h/o Wilm's Tumor s/p Nephrectomy ESRD on HD Hyponatremia - ABX per ID - HD per renal - glucose control - O2 to keep SpO2 >90% - DVT prophylaxis - Local wound care per Podiatry Dr Mckeon
[2019-03-12] MEDS: ASPIRIN 81 MG CHEWABLE TABLETS PO SCH (10:43)
[2019-03-12] MEDS: CLOPIDOGREL BISULFATE 75 MG TABLET (FP) PO SCH (10:43)
--- NOTE | 2019-03-12 11:38 | PN ---
Progress Note, Physician Chief Complaint: Fall Syncope L big toe diabetic ulcer History of Present Illness: NAD in bed denies any pain, N/V/SOB/dizziness BGMS elevated yesterday during the day Levemir adjusted Awaiting MRI LLE results, called [facility] radiology Going for HD today - Current Medication List Current Medications: Active Medications Aspirin (Asa -) 81 mg PO DAILY [facility] Last Admin: 03/12/19 10:43 Dose: 81 mg Clopidogrel Bisulfate (Plavix -) 75 mg PO DAILY [facility] Last Admin: 03/12/19 10:43 Dose: 75 mg Collagenase (Santyl -) 1 applic TP DAILY [facility]; Protocol Last Admin: 03/11/19 17:51 Dose: 1 applic Heparin Sodium (Porcine) (Heparin -) 5,000 unit SQ BID [facility] Last Admin: 03/12/19 10:03 Dose: 5,000 unit Insulin Aspart (Novolog Vial Sliding Scale -) 1 vial SQ ACHS [facility]; Protocol Last Admin: 03/12/19 06:52 Dose: 7 units Insulin Detemir (Levemir Vial) 35 units SQ BID@0700,2200 [facility] Last Admin: 03/12/19 06:50 Dose: 35 units - Objective Vital Signs: Vital Signs Temperature 98.1 F 03/12/19 09:53 Pulse Rate 96 H 03/12/19 09:53 Respiratory Rate 20 03/12/19 09:53 Blood Pressure 137/62 03/12/19 09:53 O2 Sat by Pulse Oximetry (%) 96 03/11/19 21:00 Constitutional: Yes: Well Nourished, No Distress, Calm Cardiovascular: Yes: Regular Rate and Rhythm Respiratory: Yes: Regular Gastrointestinal: Yes: Normal Bowel Sounds, Soft, Abdomen, Obese Genitourinary: Yes: WNL Musculoskeletal: Yes: WNL Extremities: Yes: Other (Left big toe necrosis) Edema: No Peripheral Pulses WNL: Yes Wound/Incision: Yes: Dressing Dry and Intact Neurological: Yes: Alert, Oriented Psychiatric: Yes: Alert, Oriented Labs: CBC, BMP 03/11/19 07:43 03/11/19 07:43 INR, PTT INR 1.06 (0.83-1.09) 03/09/19 05:55 Problem List - Problems (1) Diabetic ulcer of left great toe Assessment/Plan: -Podiatry consult -MRI LLE to + osteo -Cannot do any surgical debridement due to being on plavix, which cannot be held due to recent PCI -IV Vanco 1 g MWF x 6 weeks Problems reviewed: Yes Code(s): E11.621 - TYPE 2 DIABETES MELLITUS WITH FOOT ULCER; L97.529 - NON- PRESSURE CHRONIC ULCER OTH PRT LEFT FOOT W UNSP SEVERITY (2) Acute metabolic encephalopathy Assessment/Plan: -Resolved -/2 to sepsis -IV abx Problems reviewed: Yes Code(s): G93.41 - METABOLIC ENCEPHALOPATHY (3) Altered mental status Problems reviewed: Yes Code(s): R41.82 - ALTERED MENTAL STATUS, UNSPECIFIED Qualifiers: Altered mental status type: disorientation Qualified Code(s): R41.0 - Disorientation, unspecified (4) Sepsis Assessment/Plan: -IV abx -ID on board -afebrile -leukocytosis resolved -LA normal -MRI LLE to r/ osteo Problems reviewed: Yes Code(s): A41.9 - SEPSIS, UNSPECIFIED ORGANISM Qualifiers: Sepsis type: sepsis due to unspecified organism Sepsis acute organ dysfunction status: unspecified Qualified Code(s): A41.9 - Sepsis, unspecified organism (5) Diabetes Assessment/Plan: 1c 12.6 -Endocrine consult appreciated -BGM AC HS -ISS -Diabetic low sodium diet -Levemir Problems reviewed: Yes Code(s): E11.9 - TYPE 2 DIABETES MELLITUS WITHOUT COMPLICATIONS Qualifiers: Diabetes mellitus type: type 1 Diabetes mellitus complication status: with skin complications Diabetes mellitus complication detail: with foot ulcer Qualified Code(s): E10.621 - Type 1 diabetes mellitus with foot ulcer (6) ESRD (end stage renal disease) Assessment/Plan: -nephrology on board -monitor trend -HD today-MWF Problems reviewed: Yes Code(s): N18.6 - END STAGE RENAL DISEASE Assessment/Plan see problem list Physical therapy
--- NOTE | 2019-03-12 14:51 | DS ---
Physical Examination Vital Signs: Vital Signs Temperature 98.1 F 03/12/19 09:53 Pulse Rate 96 H 03/12/19 09:53 Respiratory Rate 20 03/12/19 09:53 Blood Pressure 137/62 03/12/19 09:53 O2 Sat by Pulse Oximetry (%) 96 03/12/19 10:15 Findings/Remarks: This is a 63 y/o man with a PMHx of HTN, HLD, T2DM, CHF, CAD s/p PCI ([place], 02/2019), ESRD (M,W.F), h/o Wilms Tumor. Who was BIBA to the ED from home after possible fall in the bathroom. Patient is lethargic unable to provide HPI. Per ED record: On arrival, the pt is alert but confused and unable or unwilling to explain the events prior to arrival. Pt's is not at bedside. Pt's son arrived, but was not present at home and does not know what transpired. Pt is s/o non-emergent cardiac catheterization last week at [facility] by Dr. Hess. Believed to be taking ASA and Plavix. Son believes his father's last HD run was on Saturday and it was unremarkable. (1) Diabetic ulcer of left great toe Assessment/Plan: -Podiatry consult -MRI LLE to + osteo -Cannot do any surgical debridement due to being on plavix, which cannot be held due to recent PCI -IV Vanco 1 g MWF x 6 weeks Problems reviewed: Yes Code(s): E11.621 - TYPE 2 DIABETES MELLITUS WITH FOOT ULCER; L97.529 - NON- PRESSURE CHRONIC ULCER OTH PRT LEFT FOOT W UNSP SEVERITY (2) Acute metabolic encephalopathy Assessment/Plan: -Resolved -/2 to sepsis -IV abx Problems reviewed: Yes Code(s): G93.41 - METABOLIC ENCEPHALOPATHY (3) Altered mental status Problems reviewed: Yes Code(s): R41.82 - ALTERED MENTAL STATUS, UNSPECIFIED Qualifiers: Altered mental status type: disorientation Qualified Code(s): R41.0 - Disorientation, unspecified (4) Sepsis Assessment/Plan: -IV abx -ID on board -afebrile -leukocytosis resolved -LA normal -MRI LLE to r/ osteo Problems reviewed: Yes Code(s): A41.9 - SEPSIS, UNSPECIFIED ORGANISM Qualifiers: Sepsis type: sepsis due to unspecified organism Sepsis acute organ dysfunction status: unspecified Qualified Code(s): A41.9 - Sepsis, unspecified organism (5) Diabetes Assessment/Plan: 1c 12.6 -Endocrine consult appreciated -BGM AC HS -ISS -Diabetic low sodium diet -Levemir Problems reviewed: Yes Code(s): E11.9 - TYPE 2 DIABETES MELLITUS WITHOUT COMPLICATIONS Qualifiers: Diabetes mellitus type: type 1 Diabetes mellitus complication status: with skin complications Diabetes mellitus complication detail: with foot ulcer Qualified Code(s): E10.621 - Type 1 diabetes mellitus with foot ulcer (6) ESRD (end stage renal disease) Assessment/Plan: -nephrology on board -monitor trend -HD today-MWF Problems reviewed: Yes Code(s): N18.6 - END STAGE RENAL DISEASE Constitutional: Yes: Well Nourished, No Distress, Calm Cardiovascular: Yes: Regular Rate and Rhythm Respiratory: Yes: Regular Gastrointestinal: Yes: Normal Bowel Sounds, Soft, Abdomen, Obese Musculoskeletal: Yes: WNL Extremities: Yes: Other (left big toe necrosis) Edema: No Peripheral Pulses WNL: Yes Wound/Incision: Yes: Dressing Dry and Intact Neurological: Yes: Alert, Oriented Psychiatric: Yes: Alert, Oriented Labs: CBC, BMP 03/11/19 07:43 03/11/19 07:43 Discharge Summary Problems reviewed: Yes Reason For Visit: FALL/SEPSIS/ALTERED MENTAL STATUS/SECONDARY DIABET Current Active Problems Acute metabolic encephalopathy (Acute) Altered mental status (Acute) DM (diabetes mellitus), type 2 with hyperosmolarity (Acute) Diabetic ulcer of left great toe (Acute) Hyponatremia (Acute) Secondary diabetes with hyperglycemia hyperosmolar non-ketotic coma (Acute) Sepsis (Acute) Condition: Stable - Instructions Diet, Activity, Other Instructions: Please follow up with Dr Alfonso outpatient at [facility], Referrals: Flex Mckenzie MD [Primary Care Provider] - Gennaro Alfonso DPM [Staff Physician] - Disposition: [facility]ILITY - Home Medications Comprehensive Discharge Medication List: Ambulatory Orders Aspirin [Ecotrin] 81 mg PO DAILY 09/03/15 Fish Oil/Borage/Flax/Om3,6,9 1 [[place] 3-6-9 Complex Softgel] 1 each PO DAILY Amlodipine Besylate [Norvasc -] 10 mg PO DAILY #30 tablet 07/03/18 Cyanocobalamin [Vitamin B12 -] 1,000 mcg PO DAILY tablet 07/03/18 Isosorbide Dinitrate [Isordil] 5 mg PO BIDISORDIL #30 tablet MDD 2 07/03/18 Acetaminophen [Tylenol .Regular Strength -] 650 mg PO Q6H PRN tablet 07/22/18 Atorvastatin Ca [Lipitor] 80 mg PO HS #30 tablet 07/22/18 Pantoprazole Sodium [Protonix -] 40 mg PO DAILY #30 tablet.ec 07/22/18 Aspirin [ASA -] 81 mg PO DAILY tab.chew 03/12/19 Clopidogrel Bisulfate [Plavix -] 75 mg PO DAILY #30 tablet 03/12/19 Collagenase Clostridium Hist. [Santyl -] 1 applic TP DAILY #1 tube 03/12/19 Insulin (Levemir) [Levemir Vial] 40 units SQ BID@0700,2200 #2 ea 03/12/19 Insulin Lispro [Humalog Josh Kwikpen] See Protocol SQ AC #2 ins.pen.hf Pen Needle, Diabetic [1St Tier Unifine Pentips Plus] 1 each AC #100 dis.needle 03/12/19 Vancomycin 1,000 mg IVPB ASDIR #12 vial 03/12/19 Prescription Drug Monitoring Program (I-STOP) results: I-STOP reviewed and no issues identified
--- NOTE | 2019-03-12 15:01 | PN ---
Progress Note, Physician History of Present Illness: Pt seen and examined at bedside. He is awake and alert. He tolerated HD yesterday. - Current Medication List Current Medications: Active Medications Aspirin (Asa -) 81 mg PO DAILY [facility] Last Admin: 03/12/19 10:43 Dose: 81 mg Clopidogrel Bisulfate (Plavix -) 75 mg PO DAILY [facility] Last Admin: 03/12/19 10:43 Dose: 75 mg Collagenase (Santyl -) 1 applic TP DAILY [facility]; Protocol Last Admin: 03/11/19 17:51 Dose: 1 applic Heparin Sodium (Porcine) (Heparin -) 5,000 unit SQ BID [facility] Last Admin: 03/12/19 10:03 Dose: 5,000 unit Insulin Aspart (Novolog Vial Sliding Scale -) 1 vial SQ ACHS [facility]; Protocol Last Admin: 03/12/19 11:41 Dose: 8 units Insulin Detemir (Levemir Vial) 35 units SQ BID@0700,2200 [facility] Last Admin: 03/12/19 06:50 Dose: 35 units - Objective Vital Signs: Vital Signs Temperature 98.1 F 03/12/19 09:53 Pulse Rate 96 H 03/12/19 09:53 Respiratory Rate 20 03/12/19 09:53 Blood Pressure 137/62 03/12/19 09:53 O2 Sat by Pulse Oximetry (%) 96 03/12/19 10:15 Constitutional: Yes: Calm Eyes: Yes: Conjunctiva Clear HENT: Yes: Atraumatic Neck: Yes: Supple Cardiovascular: Yes: S1, S2 Respiratory: Yes: CTA Bilaterally Gastrointestinal: Yes: Normal Bowel Sounds, Soft Genitourinary: Yes: WNL Musculoskeletal: Yes: WNL Edema: No Neurological: Yes: Oriented Psychiatric: Yes: Oriented Labs: CBC, BMP 03/11/19 07:43 03/11/19 07:43 INR, PTT INR 1.06 (0.83-1.09) 03/09/19 05:55 Problem List - Problems (1) Acute metabolic encephalopathy Code(s): G93.41 - METABOLIC ENCEPHALOPATHY (2) Altered mental status Code(s): R41.82 - ALTERED MENTAL STATUS, UNSPECIFIED Qualifiers: Altered mental status type: disorientation Qualified Code(s): R41.0 - Disorientation, unspecified (3) ESRD (end stage renal disease) Code(s): N18.6 - END STAGE RENAL DISEASE Assessment/Plan Current Medications Generic Name Dose Route Start Last Admin Trade Name Shilpa PRN Reason Stop Dose Admin Aspirin 81 mg 03/10/19 10:00 03/12/19 10:43 Asa - PO 81 mg DAILY [facility] Administration Clopidogrel Bisulfate 75 mg 03/10/19 10:00 03/12/19 10:43 Plavix - PO 75 mg DAILY [facility] Administration Collagenase 1 applic 03/10/19 10:00 03/11/19 17:51 Santyl - TP 1 applic DAILY [facility] Administration Protocol Heparin Sodium (Porcine) 5,000 unit 03/10/19 10:00 03/12/19 10:03 Heparin - SQ 5,000 unit BID [facility] Administration Insulin Aspart 1 vial 03/10/19 22:00 03/12/19 11:41 Novolog Vial Sliding Scale - SQ 8 units ACHS [facility] Administration Protocol Insulin Detemir 35 units 03/10/19 22:00 03/12/19 06:50 Levemir Vial SQ 35 units BID@0700,2200 [facility] Administration Impression 1. ESRD 2. PNA 3. DM 4. hhs 5. hyperlipidemia 6. HTN 7. hx of Wilms tumor, s/p left nephrectomy 8. dyspnea Plan - pt has HD set up as outpt - called in [facility] for 6 weeks to HD unit - will need podiatry follow up as outpt - renal diet - cont abx
--- NOTE | 2019-03-12 15:32 | PN ---
Progress Note (short form) - Note Progress Note: FUV left big toe. +necrotic wound left big toe, MRI +for om, +improved odor Necrotic wound left hallux Unable to take to OR due to stents and need for Plavix. Pt refusing HBO tx. Agrees to abx and wound care. Will follow till DC.
[2019-03-12] MEDS: COLLAGENASE CLOSTRIDIUM HIST. 30 GRAMS TUBE TP SCH (15:38)
--- NOTE | 2019-03-12 15:57 | PN ---
Progress Note (short form) - Note Progress Note: s: no cp sob palps dizzy Current Medications Aspirin (Asa -) 81 mg PO DAILY [facility] Last Admin: 03/12/19 10:43 Dose: 81 mg Clopidogrel Bisulfate (Plavix -) 75 mg PO DAILY [facility] Last Admin: 03/12/19 10:43 Dose: 75 mg Collagenase (Santyl -) 1 applic TP DAILY [facility]; Protocol Last Admin: 03/12/19 15:38 Dose: 1 applic Heparin Sodium (Porcine) (Heparin -) 5,000 unit SQ BID [facility] Last Admin: 03/12/19 10:03 Dose: 5,000 unit Insulin Aspart (Novolog Vial Sliding Scale -) 1 vial SQ ACHS [facility]; Protocol Last Admin: 03/12/19 11:41 Dose: 8 units Insulin Detemir (Levemir Vial) 35 units SQ BID@0700,2200 [facility] Last Admin: 03/12/19 06:50 Dose: 35 units Vital Signs Period Temp Pulse Resp BP Sys/Barrera Pulse Ox Last 24 Hr 98.1 F-98.7 F 88-96 18-109 137-158/62-77 96-96 Constitutional: Yes: No Distress Cardiovascular: Yes: Regular Rate and Rhythm Respiratory: Yes: CTA Bilaterally Gastrointestinal: Yes: Soft Edema: No no jaundice diaphoresis Neurological: Yes: Alert, Oriented mibi 04/2018 small area of mild ischemia anterior wall, EF 30% lower ext venous doppler: no DVT EKG: sinus tachy, no ischemic changes echo 12/2018: nl lv/rv, no sig valve path, mild ao root dil cxr: clear lungs a/p: 63M h/o CKD, DM, HLD, HTN, wilm's tumor s/p nephrectomy, esrd on hd, chf, cad s/p pci (most recent was earlier this month, elective pci for chronic cad) here with ams. ams, sepsis: -infectious w/u, abx per ID -likely source is toe elevated troponin: -borderline trop elevation with flat trend, similar to prior baseline values, not c/w acs chronic diastolic chf: -recent outpt echo unremarkable -vol stable here, cont hd per renal HTN - stable, on norvasc and nitrate at home, holding in setting of sepsis ESRD: -HD per renal HLD - cont statin when acute issues resolve cad s/p pci (most recent was earlier this month, elective pci for chronic cad): -no signs acs, no angina -cont uninterrupted dapt given recent pci
--- NOTE | 2019-03-12 16:30 | PN ---
Progress Note (short form) - Note Progress Note: ON HD alert NAD Vital Signs Period Temp Pulse Resp BP Sys/Barrera Pulse Ox Last 24 Hr 98.1 F-98.7 F 88-103 18-109 137-160/62-77 96-96 cor-rrr lungs clear abd soft,nt ext toe unchanged CBC, BMP 03/11/19 07:43 03/11/19 07:43 MRI- cellulitis of the first toe with very early osteo of the distal tuft a/p fever-resolved, cultures negative ulcer left first toe, very early osteo on MRI d/w dr vilchis- he will decide regarding debridement- he will speak with cardiology-no operative debridement planned - per my conversation with the hospitalist will switch to cefazolin with HD d/w renal --no history of MRSA esrd/hd- dialysis M/W/F diabetes/hyperglycemia-secondary to issues abtaining insulin cad- s/p recent PCI d/w hospitalist- gave patient office information he is seeing tire repairer in his office would like him to f/u in 2 weeks in our office [phone] Costello Problem List - Problems (1) Fever Code(s): R50.9 - FEVER, UNSPECIFIED (2) Acute metabolic encephalopathy Code(s): G93.41 - METABOLIC ENCEPHALOPATHY (3) ESRD (end stage renal disease) on dialysis Code(s): N18.6 - END STAGE RENAL DISEASE; Z99.2 - DEPENDENCE ON RENAL DIALYSIS (4) Diabetes Code(s): E11.9 - TYPE 2 DIABETES MELLITUS WITHOUT COMPLICATIONS Qualifiers: Diabetes mellitus type: type 1 Diabetes mellitus complication status: with skin complications Diabetes mellitus complication detail: with foot ulcer Qualified Code(s): E10.621 - Type 1 diabetes mellitus with foot ulcer
--- NOTE | 2019-03-12 18:45 | PN ---
Progress Note, Physician Chief Complaint: will need home vns and follow up for dm cost of insulin has been a problem intermediate - Current Medication List Current Medications: Active Medications Aspirin (Asa -) 81 mg PO DAILY [facility] Last Admin: 03/12/19 10:43 Dose: 81 mg Clopidogrel Bisulfate (Plavix -) 75 mg PO DAILY [facility] Last Admin: 03/12/19 10:43 Dose: 75 mg Collagenase (Santyl -) 1 applic TP DAILY [facility]; Protocol Last Admin: 03/12/19 15:38 Dose: 1 applic Heparin Sodium (Porcine) (Heparin -) 5,000 unit SQ BID [facility] Last Admin: 03/12/19 10:03 Dose: 5,000 unit Insulin Aspart (Novolog Vial Sliding Scale -) 1 vial SQ ACHS [facility]; Protocol Last Admin: 03/12/19 17:08 Dose: 2 units Insulin Detemir (Levemir Vial) 35 units SQ BID@0700,2200 [facility] Last Admin: 03/12/19 06:50 Dose: 35 units - Objective Vital Signs: Vital Signs Temperature 98.4 F 03/12/19 16:00 Pulse Rate 118 H 03/12/19 18:39 Respiratory Rate 03/12/19 18:39 Blood Pressure 144/78 03/12/19 18:39 O2 Sat by Pulse Oximetry (%) 96 03/12/19 10:15 Constitutional: Yes: Calm Eyes: Yes: EOM Intact HENT: Yes: Normocephalic Neck: Yes: Trachea Midline Cardiovascular: Yes: Regular Rate and Rhythm Respiratory: Yes: CTA Bilaterally Gastrointestinal: Yes: Normal Bowel Sounds ...Rectal Exam: Yes: Deferred Breast(s): Yes: WNL Musculoskeletal: Yes: Back Pain, Joint Swelling, Muscle Pain, Muscle Weakness, Other Edema: No Peripheral Pulses WNL: Yes Wound/Incision: Yes: Dressing Dry and Intact Neurological: Yes: Alert, Oriented Labs: CBC, BMP 03/11/19 07:43 03/11/19 07:43 INR, PTT INR 1.06 (0.83-1.09) 03/09/19 05:55 Problem List - Problems (1) Acute metabolic encephalopathy Code(s): G93.41 - METABOLIC ENCEPHALOPATHY (2) Altered mental status Code(s): R41.82 - ALTERED MENTAL STATUS, UNSPECIFIED Qualifiers: Altered mental status type: disorientation Qualified Code(s): R41.0 - Disorientation, unspecified (3) Hyponatremia Code(s): E87.1 - HYPO-OSMOLALITY AND HYPONATREMIA (4) Secondary diabetes with hyperglycemia hyperosmolar non-ketotic coma Code(s): E13.01 - OTH DIABETES MELLITUS WITH HYPEROSMOLARITY WITH COMA (5) Acute kidney injury superimposed on chronic kidney disease Code(s): N17.9 - ACUTE KIDNEY FAILURE, UNSPECIFIED; N18.9 - CHRONIC KIDNEY DISEASE, UNSPECIFIED (6) Acute renal failure Code(s): N17.9 - ACUTE KIDNEY FAILURE, UNSPECIFIED (7) Bronchopneumonia due to human metapneumovirus (hMPV) Code(s): J12.3 - HUMAN METAPNEUMOVIRUS PNEUMONIA (8) DM (diabetes mellitus), type 2 with hyperosmolarity Code(s): E11.00 - TYPE 2 DIAB W HYPROSM W/O NONKET HYPRGLY-HYPROS COMA ([facility]) (9) Diabetic ulcer of left great toe Code(s): E11.621 - TYPE 2 DIABETES MELLITUS WITH FOOT ULCER; L97.529 - NON- PRESSURE CHRONIC ULCER OTH PRT LEFT FOOT W UNSP SEVERITY Assessment/Plan Current Active Problems Acute metabolic encephalopathy (Acute) Altered mental status (Acute) DM (diabetes mellitus), type 2 with hyperosmolarity (Acute) Diabetic ulcer of left great toe (Acute) Hyponatremia (Acute) Secondary diabetes with hyperglycemia hyperosmolar non-ketotic coma (Acute) Sepsis (Acute) Laboratory Results - last 24 hr 03/11/19 03/12/19 03/12/19 22:20 06:04 11:05 POC Glucometer 80 134 163 03/12/19 16:38 POC Glucometer 178 Current Medications Generic Name Dose Route Start Last Admin Trade Name Freq PRN Reason Stop Dose Admin Aspirin 81 mg 03/10/19 10:00 03/12/19 10:43 Asa - PO 81 mg DAILY [facility] Administration Clopidogrel Bisulfate 75 mg 03/10/19 10:00 03/12/19 10:43 Plavix - PO 75 mg DAILY [facility] Administration Collagenase 1 applic 03/10/19 10:00 03/12/19 15:38 Santyl - TP 1 applic DAILY [facility] Administration Protocol Heparin Sodium (Porcine) 5,000 unit 03/10/19 10:00 03/12/19 10:03 Heparin - SQ 5,000 unit BID [facility] Administration Insulin Aspart 1 vial 03/12/19 17:00 03/12/19 17:08 Novolog Vial Sliding Scale - SQ 2 units ACHS [facility] Administration Protocol Insulin Detemir 35 units 03/10/19 22:00 03/12/19 06:50 Levemir Vial SQ 35 units BID@0700,2200 [facility] Administration plan: follow up with vns and wound care bgm as ordered levemir 35 units bid
[2019-03-12] MEDS ORDERED: amLODIPine BESYLATE 10 MG TABLET (FP) PO ONE (21:05)
[2019-03-12 22:40] VITALS: BP 163/84; PULSE 99; TEMP 98.7
== END 2019-03-12 23:14 | disposition home or self-care (01) | DRG 871 ==
LOC: JER 14:43 → JERBED 17:59 → JICU 22:53 → J5S 03-09 23:40
PROVIDERS: ADMIT Family Medicine; ATTEND Family Medicine
PROC: 5A1D70Z Performance of Urinary Filtration, Intermittent, Less than 6 Hours Per Day (ICD-10-PCS; principal; 2019-03-09)
PROC: 5A1D70Z Performance of Urinary Filtration, Intermittent, Less than 6 Hours Per Day (ICD-10-PCS; 2019-03-11)
DX: A41.89 Other specified sepsis (principal); E13.01 Other specified diabetes mellitus with hyperosmolarity with coma; N18.6 End stage renal disease; J12.3 Human metapneumovirus pneumonia; G93.41 Metabolic encephalopathy; I13.2 Hypertensive heart and chronic kidney disease with heart failure and with stage 5 chronic kidney disease, or end stage renal disease; I50.32 Chronic diastolic (congestive) heart failure; E87.1 Hypo-osmolality and hyponatremia; I24.8 Other forms of acute ischemic heart disease; N17.9 Acute kidney failure, unspecified; E11.52 Type 2 diabetes mellitus with diabetic peripheral angiopathy with gangrene; I96 Gangrene, not elsewhere classified; R50.9 Fever, unspecified; E78.5 Hyperlipidemia, unspecified; E11.22 Type 2 diabetes mellitus with diabetic chronic kidney disease; I25.10 Atherosclerotic heart disease of native coronary artery without angina pectoris; R79.89 Other specified abnormal findings of blood chemistry; E11.621 Type 2 diabetes mellitus with foot ulcer; E11.65 Type 2 diabetes mellitus with hyperglycemia; L03.031 Cellulitis of right toe; L97.529 Non-pressure chronic ulcer of other part of left foot with unspecified severity; E66.9 Obesity, unspecified; Z68.29 Body mass index [BMI] 29.0-29.9, adult; Z99.2 Dependence on renal dialysis; Z95.5 Presence of coronary angioplasty implant and graft; Z90.5 Acquired absence of kidney
CPT/HCPCS: 36415; 36600; 70450-TC; 71045-TC-FY; 73718-TC-LT; 80048; 80053; 80307; 81003; 82010; 82375; 82550; 82553; 82803; 82962; 83036; 83050; 83605; 83735; 83930; 83935; 84100; 84484; 85025; 85610; 85730; 86803; 87040; 87070; 87086; 87205; 87340; 87804; 93005; 93010; 93306-TC; 93880-TC; 97116-GP; 97161-GP; 99285-25; G0480; J0131; J0885; J1644

== ENCOUNTER 2019-03-20 13:13 | Emergency (ER) | payer OTHER ==
[2019-03-20 13:45] VITALS: BMI 26.6
--- NOTE | 2019-03-20 14:03 | PDOC ---
History of Present Illness <Jo Ann Mancuso - Last Filed: 03/20/19 17:35> - History of Present Illness Initial Comments: 03/20/19 14:55 Mr. Manrique is a 63y/o male with CAD s/p PCI with stent placement (02/2019 [facility] on Plavix), ESRD on HD MWF, HTN, HLD, and recently discharged on 03/12/19 for sepsis and HHS on vancomycin who presents with lightheadedness increasing over the last week. He reports in the last 2 days he has been needing to use his rolling walker in the house which he does not normally need. Lightheadedness occurs upon standing as well as palpitations. He has fallen twice on his knees but did not hit his head nor loss consciousness. He also reports dark watery stool for the last week. He had a negative endoscopy about 9 years ago, and colonoscopy with polyps which were removed. He denies chest pain, abdominal pain, nausea, or vomiting. He has some loss of appetite, chills , and headache. Pt has not had HD today nor medications. cards: Jimena nephro: Maria Alejandra PCP/endocrine: Magaly <Marjorie Kaplan - Last Filed: 03/20/19 23:57> <Wendy Alcala - Last Filed: 03/21/19 14:55> - General Chief Complaint: Lightheaded Stated Complaint: DIZZINESS/ALVARADO Time Seen by Provider: 03/20/19 13:44 Past History <Jo Ann Mancuso - Last Filed: 03/20/19 17:35> - Past Medical History Anemia: No Asthma: No Cancer: No Cardiac Disorders: Yes (Cardiomyopathy, CAD with stenting February 2019) CVA: No COPD: No CHF: No Dementia: No Diabetes: Yes Dialysis: Yes GI Disorders: Yes Disorders: Yes (Wilms Tumor) HTN: Yes Hypercholesterolemia: Yes Liver Disease: No Seizures: No Thyroid Disease: No - Surgical History Abdominal Surgery: Yes Appendectomy: Yes Cardiac Surgery: Yes (Stents) Cholecystectomy: No Lung Surgery: No Neurologic Surgery: No Orthopedic Surgery: Yes (rotator cuff right shoulder) - Immunization History Immunization Up to Date: Yes - Psycho Social/Smoking Cessation Hx Smoking History: Never smoked Have you smoked in the past 12 months: No Number of Cigarettes Smoked Daily: 0 Information on smoking cessation initiated: No Hx Alcohol Use: No Drug/Substance Use Hx: No Substance Use Type: None Hx Substance Use Treatment: No <Marjorie Kaplan - Last Filed: 03/20/19 23:57> <CariWendy Toyachris - Last Filed: 03/21/19 14:55> - Past Medical History Allergies/Adverse Reactions: Allergies Allergy/AdvReac Type Severity Reaction Status Date / Time Iodinated Contrast Media Allergy Intermediate Hives Verified 03/20/19 18:51 Home Medications: Ambulatory Orders Amlodipine Besylate 10 mg PO DAILY 03/20/19 Aspirin 81 mg PO DAILY 03/20/19 Atorvastatin Calcium [Lipitor] 20 mg PO HS 03/20/19 Clopidogrel Bisulfate [Clopidogrel] 75 mg PO DAILY 03/20/19 Cyanocobalamin [Vitamin B12 -] 1,000 mcg PO DAILY 03/20/19 Hydralazine HCl 25 mg PO TID 03/20/19 Insulin (LOG) Aspart [NovoLOG -] 0 units SQ TID PRN 03/20/19 Insulin Detemir [Levemir Flextouch] 40 unit SQ BID 03/20/19 Isosorbide Dinitrate [Isordil] 5 mg PO BID 03/20/19 [place]-3 Fatty Acids/Fish Oil [Fish Oil 1,000 mg Capsule] 1 each PO DAILY Pantoprazole Sodium [Protonix -] 40 mg PO DAILY 03/20/19 Vancomycin [Vancocin] 1,000 mg IV ASDIR 03/20/19 Review of Systems - Review of Systems Constitutional: Yes: Chills. No: Fever Respiratory: No: Cough, Shortness of Breath Cardiac (ROS): Yes: Lightheadedness, Palpitations. No: Chest Pain ABD/GI: Yes: Poor Appetite, Other (black watery stool). No: Nausea, Vomiting : No: Dysuria Neurological: Yes: Headache <Marjorie Kaplan - Last Filed: 03/20/19 23:57> - Review of Systems Able to Perform ROS?: Yes Constitutional: No: Diaphoresis HEENTM: No: Blurred Vision, Recent change in vision Cardiac (ROS): No: Syncope ABD/GI: Yes: Blood Streaked Bowels, Rectal Bleeding. No: Abdominal cramping : No: Discharge, Frequency, Flank Pain, Incontinence, Pain Musculoskeletal: No: Back Pain, Muscle Pain, Neck Pain Integumentary: Yes: Change in Color, Pallor Neurological: No: Numbness, Paresthesia, Tingling, Weakness Hematologic/Lymphatic: Yes: Anemia, Easy Bleeding. No: Blood Clots All Other Systems: Reviewed and Negative <Wendy Alcala - Last Filed: 03/21/19 14:55> *Physical Exam - Vital Signs Last Vital Signs Temp Pulse Resp BP Pulse Ox 98.0 F 110 H 9 L 139/52 L 100 03/20/19 13:20 03/20/19 16:40 03/20/19 16:40 03/20/19 16:40 03/20/19 16:40 <Jo Ann Mancuso - Last Filed: 03/20/19 17:35> - Vital Signs Last Vital Signs Temp Pulse Resp BP Pulse Ox 98.0 F 125 H 18 124/52 L 100 03/20/19 13:20 03/20/19 13:20 03/20/19 13:20 03/20/19 13:20 03/20/19 13:20 - Physical Exam General Appearance: Yes: Nourished, Mild Distress, Other (ill-appearing, pallor) HEENT: positive: EOMI, PRAKASH Neck: positive: Trachea midline Respiratory/Chest: positive: Lungs Clear. negative: Respiratory Distress Cardiovascular: positive: Regular Rhythm, Tachycardia. negative: Murmur Gastrointestinal/Abdominal: positive: Normal Bowel Sounds. negative: Tender Rectal Exam: positive: NL Prostate, normal rectal tone, melena. negative: hemorrhoids Musculoskeletal: negative: CVA Tenderness Integumentary: positive: Dry, Warm Neurologic: positive: Fully Oriented, Alert, Normal Mood/Affect <Marjorie Kaplan - Last Filed: 03/20/19 23:57> - Vital Signs Last Vital Signs Temp Pulse Resp BP Pulse Ox 98.9 F 103 H 18 129/65 100 03/20/19 22:14 03/20/19 22:14 03/20/19 22:14 03/20/19 22:14 03/20/19 22:14 - Physical Exam Vascular Pulses: Dorsalis-Pedis (R): 2+, Doralis-Pedis (L): 2+ Gastrointestinal/Abdominal: positive: Other (anterior abdomen surgical scars, prior wilms tumor) Musculoskeletal: positive: Normal Inspection Extremity: positive: Normal Capillary Refill, Normal Inspection, Normal Range of Motion Integumentary: positive: Pale, Other (left great toe ulcer, dry) <CariWendy Joel - Last Filed: 03/21/19 14:55> ED Treatment Course - LABORATORY CBC & Chemistry Diagram: 03/20/19 14:45 03/20/19 14:45 - ADDITIONAL ORDERS Additional order review: Laboratory Results 03/20/19 03/20/19 03/20/19 14:45 14:45 14:45 PT with INR 13.10 H INR 1.11 H PTT (Actin FS) 32.4 Sodium 141 Potassium 4.5 Chloride 109 H Carbon Dioxide 22 Anion Gap 10 BUN 34.5 H Creatinine 5.4 H Est GFR (CKD-EPI)AfAm 12.03 Est GFR (CKD-EPI)NonAf 10.38 Random Glucose 173 H Calcium 8.7 Magnesium 2.1 Total Bilirubin 0.2 AST 11 L ALT 7 L Alkaline Phosphatase 98 Creatine Kinase 42 Troponin I 0.06 H Total Protein 4.9 L Albumin 2.5 L Blood Type O POSITIVE Antibody Screen Negative Crossmatch See Detail 03/20/19 14:45 RBC 2.20 L MCV 87.0 MCHC 32.6 RDW 14.7 MPV 7.3 L Neutrophils % 73.0 Lymphocytes % 17.2 Monocytes % 6.6 Eosinophils % 1.5 Basophils % 1.7 - Medications Given in the ED: ED Medications Discontinued Medications Generic Name Dose Route Start Last Admin Trade Name Freq PRN Reason Stop Dose Admin Sodium Chloride 500 mls @ 1,000 mls/hr 03/20/19 16:14 03/20/19 17:32 Normal Saline - IV 03/20/19 16:43 1,000 mls/hr ASDIR STA Administration Pantoprazole Sodium 40 mg 03/20/19 15:38 03/20/19 16:14 Protonix Iv IVPUSH 03/20/19 15:39 40 mg ONCE ONE Administration Sodium Chloride 500 ml 03/20/19 14:09 03/20/19 16:14 Normal Saline - IV 03/20/19 14:10 Not Given ONCE ONE <Jo Ann Mancuso - Last Filed: 03/20/19 17:35> - LABORATORY CBC & Chemistry Diagram: 03/20/19 14:45 03/20/19 14:45 <Marjorie Kaplan - Last Filed: 03/20/19 23:57> - LABORATORY CBC & Chemistry Diagram: 03/20/19 14:45 03/20/19 14:45 - ADDITIONAL ORDERS Additional order review: 03/20/19 14:45 RBC 2.20 L MCV 87.0 MCHC 32.6 RDW 14.7 MPV 7.3 L Neutrophils % 73.0 Lymphocytes % 17.2 Monocytes % 6.6 Eosinophils % 1.5 Basophils % 1.7 - RADIOLOGY Radiology Studies Ordered: Category Date Time Status CHEST X-RAY PORTABLE* [RAD] Stat Radiology 03/20/19 13:37 Completed - Medications Given in the ED: ED Medications Discontinued Medications Generic Name Dose Route Start Last Admin Trade Name Freq PRN Reason Stop Dose Admin Sodium Chloride 500 mls @ 1,000 mls/hr 03/20/19 16:14 03/20/19 17:32 Normal Saline - IV 03/20/19 16:43 1,000 mls/hr ASDIR STA Administration Pantoprazole Sodium 40 mg 03/20/19 15:38 03/20/19 16:14 Protonix Iv IVPUSH 03/20/19 15:39 40 mg ONCE ONE Administration Sodium Chloride 500 ml 03/20/19 14:09 03/20/19 16:14 Normal Saline - IV 03/20/19 14:10 Not Given ONCE ONE <Wendy Alcala - Last Filed: 03/21/19 14:55> Medical Decision Making - Medical Decision Making 03/20/19 15:11 Mr. Manrique is a 63y/o male with CAD s/p PCI with stent placement (02/2019 [facility] on Plavix), ESRD on HD MWF, HTN, HLD, and recently discharged on 03/12/19 for sepsis and HHS on vancomycin who presents with lightheadedness and palpitations increasing over the last week as well as dark, watery stools. He has not had HD today. ddx: upper and/or lower GI bleed, r/o ACS orders: CBC, CMP, type and screen, cardiac profile, CXR, EKG, CT head 03/20/19 16:43 EKG HR 118, no acute ST changes, QTc 465 tropinemia 0.06, likely demand ischemia and ESRD Hb 6.2, ordered 2 units PRBCs Pt is lying in bed not in distress. Pt to be transferred to [facility] CCU upon completion of transfusion 03/20/19 18:32 137/63 111 98.1 96% RA ordered 2 units PRBCs and 1 unit platelets Spoke with Dr. Bess, and pt will not receive HD here. Can give Lasix in between units if congested. 03/20/19 21:02 Transfer to [facility] initiated. He received 1 unit PRBCs and platelets were started. <Marjorie Kaplan - Last Filed: 03/20/19 23:57> - Critical Care Time Total Critical Care Time (minutes): 60 (GIB, anemia, NSTEMI) Critical Care Statement: The care of this patient involved high complexity decision making to prevent further life threatening deterioration of the patient 's condition and/or to evaluate & treat vital organ system(s) failure or risk of failure. <Wendy Alcala - Last Filed: 03/21/19 14:55> Discharge - Transfer to Acute Care Facility Receiving Facility Name: [facility] <Jo Ann Mancuso - Last Filed: 03/20/19 17:35> - Discharge Information Problems reviewed: Yes <Marjorie Kaplan - Last Filed: 03/20/19 23:57> - Discharge Information Problems reviewed: Yes - Admission Yes - Transfer to Acute Care Facility Accepting Physician:: Dr Stewart, [facility] <Wendy Alcala - Last Filed: 03/21/19 14:55> - Discharge Information Clinical Impression/Diagnosis: NSTEMI (non-ST elevated myocardial infarction), Elevated troponin, ESRD (end stage renal disease) GI bleed Qualifiers: GI bleed type/associated pathology: melena Qualified Code(s): K92.1 - Melena Anemia Qualifiers: Anemia type: unspecified type Qualified Code(s): D64.9 - Anemia, unspecified Condition: Guarded Disposition: TRANSFER ACUTE CARE/OTHER HOSP - Follow up/Referral Referrals: Flex Mckenzie MD [Primary Care Provider] -
[2019-03-20] MEDS ORDERED: SODIUM CHLORIDE 0.9% 500 ML INFUS.BAG IV ONE (14:09)
--- NOTE | 2019-03-20 14:49 | EKG ---
Test Reason : Blood Pressure : / mmHG Vent. Rate : 117 BPM Atrial Rate : 117 BPM P-R Int : 160 ms QRS Dur : 090 ms QT Int : 308 ms P-R-T Axes : 022 -03 028 degrees QTc Int : 429 ms POOR DATA QUALITY, INTERPRETATION MAY BE ADVERSELY AFFECTED SINUS TACHYCARDIA MINIMAL VOLTAGE CRITERIA FOR LVH, MAY BE NORMAL VARIANT POOR R WAVE PROGRESSION Confirmed by TILA HEREDIA MD ([id number]) on 03/20/2019 2:49:48 PM Referred By: Confirmed By:TILA HEREDIA MD
[2019-03-20 15:11] LABS: BASO % 1.7 % (0-2.0); EOS % 1.5 % (0-4.5); HEMATOCRIT 19.1 % (35.4-49); LYMPH % 17.2 % (8-40); MCH 28.4 pg (25.7-33.7); MCHC 32.6 g/dl (32.0-35.9); MEAN PLT VOLUME 7.3 fl (7.5-11.1); MONO % 6.6 % (3.8-10.2); PLATELET COUNT 291 K/MM3 (134-434); RDW 14.7 % (11.9-15.9); WHITE BLOOD COUNT 8.1 K/mm3 (4.0-10.0)
[2019-03-20 15:14] LABS: HEMOGLOBIN 6.2 GM/dL (11.7-16.9)
[2019-03-20 15:24] LABS: INR 1.11 (0.83-1.09); PROTHROMBIN TIME (PATIENT) 13.1 SEC (9.7-13.0)
[2019-03-20 15:27] LABS: ACTIVATED PTT 32.4 SECONDS (25.2-36.5)
--- NOTE | 2019-03-20 15:37 | PDOC ---
Attending Attestation - Resident Resident Name: Marjorie Kaplan - ED Attending Attestation I have performed the following: I have examined & evaluated the patient, The case was reviewed & discussed with the resident, I agree w/resident's findings & plan - HPI HPI: 03/20/19 15:37 63y/o male with CAD s/p PCI with stent placement (02/2019 [facility] on ASA/Plavix ), ESRD on HD MWF, HTN, HLD, and recently discharged on 03/12/19 for sepsis and HHS on vancomycin who presents with lightheadedness increasing over the last week. He reports in the last 2 days he has been needing to use his rolling walker in the house which he does not normally need. Lightheadedness with positional changes and palpitations. He has fallen twice on his knees but did not hit his head nor loss consciousness. He also reports dark watery stool for the last week. He denies chest pain, abdominal pain, nausea, or vomiting. He has some loss of appetite, chills, and headache. Pt has not had HD today nor medications. no fever. Pt is s/p non-emergent cardiac catheterization approx 2 weeks ago at [facility] by Dr. Hess/Terry, on ASA and Plavix. 03/20/19 16:39 03/21/19 14:49 - Physicial Exam PE: 03/20/19 15:36 Agree with the resident's HPI and PE as documented in the electronic medical record. NAD, NCAT, EOMI, PERRL, pale conjunctiva, anicteric; neck supple. lungs clear, +tachycardia, abdomen soft nontender. no rebound, guarding. Back nontender. MUÑOZ x4, no focal neuro deficits. No peripheral edema. pale color for ethnicity, WWP. left great toe plantar surface with dry ulcer, no drainage, no odor. +rectal bleeding on resident rectal exam. maroon colored stools, 03/20/19 16:40 03/21/19 14:50 - Critical Care Time Total Critical Care Time: 60 (GIB, anemia) Critical Care Statement: The care of this patient involved high complexity decision making to prevent further life threatening deterioration of the patient 's condition and/or to evaluate & treat vital organ system(s) failure or risk of failure. - Medical Decision Making 03/20/19 15:35 Vital Signs Temp Pulse Resp BP Pulse Ox 98.0 F 125 H 18 124/52 L 100 03/20/19 13:20 03/20/19 13:20 03/20/19 13:20 03/20/19 13:20 03/20/19 13:20 VS +tachycardic, HD appropriate. ddx SDH, EDH, ICH acs, arrhythmia, anemia, electrolyte/metabolic derangements, infection. UGIB/LGIB stool exam with maroon bloody stools Laboratory results remarkable for acute on chronic anemia today 6.2/19.1 as etiology of his dizziness and tachycardia and fatigue, +GIB as well. Transfuse with 2 units of PRBC given patient has ESRD so likely does not have EPO contributing to his worsening anemia and now symptomatic. Consent obtained, spoke with GI Dr Bird, recommended tertiary care given recent stent/ antiplatelet therapy and GI eval warranted at higher level of care nephro cs with Dr Bess Cards cs with dr Lubin , will get in contact with midway and Dr Stewart CT head to eval for bleed/head injury - neg for bleed, old left cerebellar infarct. trop elevated likely demand, 0.06; EKG without acute ischemic changes, +sinus tachycardia no ASA given due to GIB. made one large bloody BM here transfer to [facility], where pt had recent nonemergent cath and started on antiplatelet therapy, now with GIB, needs transfusion, scoping. bed available, will expedite ambulance transfer to [facility] 03/20/19 16:40 03/21/19 14:46 03/21/19 14:48
[2019-03-20] MEDS ORDERED: PANTOPRAZOLE SODIUM 40 MG VIAL IVPUSH ONE (15:38)
[2019-03-20 15:49] LABS: ALBUMIN 2.5 g/dl (3.4-5.0); BILIRUBIN,TOTAL 0.2 mg/dL (0.2-1); BLOOD UREA NITROGEN 34.5 mg/dL (7-18); CALCIUM 8.7 mg/dL (8.5-10.1); CREATININE 5.4 mg/dL (0.55-1.3); MAGNESIUM 2.1 mg/dL (1.8-2.4); POTASSIUM 4.5 mmol/L (3.5-5.1); TOT PROT 4.9 g/dl (6.4-8.2)
[2019-03-20] MEDS ORDERED: PANTOPRAZOLE SODIUM 40 MG/100 ML BAG IVPB ONE (16:14)
[2019-03-20] MEDS ORDERED: SODIUM CHLORIDE 500 ML IV STA (16:14)
--- NOTE | 2019-03-20 17:33 | CON.GI ---
Consult Consult Specialty:: GI Referred by:: ER Reason for Consultation:: Rectal bleeding - History of Present Illness Chief Complaint: Weakness History of Present Illness: 63M presenting to the ER for evaluation of rectal bleeding. Patient states that he has been having 3-4 bouts of BRBPR over the last 2 weeks following placement of a cardiac stent / initialtion of ASA/Pavix at [facility]. He states that options he was offered included ? CABG, however, he opted to have this stent placed with two more to come. He felt weak today sop opted to come to the ER. Initially, when his bleeding began two weeks ago, blood would pass with stool, however, over the last week, he would just pass blood. He denies abdominal pain. he denies nausea, vomiting, hemetamesis. he believes that he had a colonoscopy some years ago but could not remember when. There is no family history of colorectal cancer or other GI malignancy. He had a blood BM in the ED. - History Source History Provided By: Patient - Past Medical History Cardio/Vascular: Yes: CAD, HTN, Hyperlipdemia Renal/: Yes: Renal Inusuff, Other, Hemodialysis, Other Musculoskeletal: Yes: Other (poorly healed right ankle fracture, +grade 1-2 wound plantar left hallux, +hallux limitus left) Endocrine: Yes: Diabetes Mellitus - Past Surgical History Past Surgical History: Yes: Appendectomy, AV Fistula/Graft, Nephrectomy Additional Surgical History: Bowel surgery in childhood secondary to adhesions - Alcohol/Substance Use Hx Alcohol Use: No History of Substance Use: reports: None - Smoking History Smoking history: Never smoked Have you smoked in the past 12 months: No Aproximately how many cigarettes per day: 0 - Social History Usual Living Arrangement: With Spouse ADL: Independent Place of : [facility] History of Recent Travel: No Home Medications - Allergies Allergies/Adverse Reactions: Allergies Allergy/AdvReac Type Severity Reaction Status Date / Time Iodinated Contrast Media Allergy Intermediate Hives Verified 03/08/19 15:01 - Home Medications Home Medications: Ambulatory Orders Aspirin [Ecotrin] 81 mg PO DAILY 09/03/15 Fish Oil/Borage/Flax/Om3,6,9 1 [[place] 3-6-9 Complex Softgel] 1 each PO DAILY Amlodipine Besylate [Norvasc -] 10 mg PO DAILY #30 tablet 07/03/18 Cyanocobalamin [Vitamin B12 -] 1,000 mcg PO DAILY tablet 07/03/18 Isosorbide Dinitrate [Isordil] 5 mg PO BIDISORDIL #30 tablet MDD 2 07/03/18 Acetaminophen [Tylenol .Regular Strength -] 650 mg PO Q6H PRN tablet 07/22/18 Atorvastatin Ca [Lipitor] 80 mg PO HS #30 tablet 07/22/18 Pantoprazole Sodium [Protonix -] 40 mg PO DAILY #30 tablet.ec 07/22/18 Aspirin [ASA -] 81 mg PO DAILY tab.chew 03/12/19 Carvedilol 6.25 mg PO BID 03/12/19 Clopidogrel Bisulfate [Clopidogrel] 75 mg PO DAILY 03/12/19 Clopidogrel Bisulfate [Plavix -] 75 mg PO DAILY #30 tablet 03/12/19 Collagenase Clostridium Hist. [Santyl -] 1 applic TP DAILY #1 tube 03/12/19 Hydralazine HCl 25 mg PO TID 03/12/19 Insulin (Levemir) [Levemir Vial] 40 units SQ BID@0700,2200 #2 ea 03/12/19 Insulin Detemir [Levemir Flextouch] 40 unit SQ BID #2 insuln.pen 03/12/19 Insulin Lispro [Humalog Josh Kwikpen] See Protocol SQ AC #1 ins.pen.hf Insulin Lispro [Humalog Josh Kwikpen] See Protocol SQ AC #2 ins.pen.hf Pen Needle, Diabetic [1St Tier Unifine Pentips Plus] 1 each AC #100 dis.needle 03/12/19 Vancomycin 1,000 mg IVPB ASDIR #12 vial 03/12/19 Family Medical History Other Family History: Mother: : 84: old age. Father: : 73 "brain infection". Brother: : 60: [place]. 2 sons, 1 daughter: healthy Review of Systems - Review of Systems Constitutional: reports: Weakness. denies: Chills Cardiovascular: denies: Chest Pain Respiratory: denies: Cough, SOB Gastrointestinal: reports: Rectal Bleeding. denies: Abdominal Pain, Melena, Nausea, Vomiting, Vomiting Blood Physical Exam-GI Vital Signs: Vital Signs taken my myself at time of evaluation @ 1600 Temperature 98.0 F 03/20/19 13:20 Pulse Rate 110 H 03/20/19 16:40 Respiratory Rate 9 L 03/20/19 16:40 Blood Pressure 159/62 03/20/19 16:40 O2 Sat by Pulse Oximetry (%) 100 03/20/19 16:40 Constitutional: Yes: Calm Eyes: No: Sclera Icterus Cardiovascular: Yes: Tachycardia Respiratory: Yes: CTA Bilaterally Gastrointestinal Inspection: Yes: Scars (+ RLQ scar, + left flank scar) ...Auscultate: Yes: Normoactive Bowel Sounds ...Palpate: Yes: Soft. No: Hepatomegaly, Splenomegaly, Tenderness Edema: No (No LE edema) Neurological: Yes: Alert, Oriented Labs: CBC, BMP 03/20/19 14:45 03/20/19 14:45 INR, PTT INR 1.11 (0.83-1.09) H 03/20/19 14:45 Hepatic Panel Total Bilirubin 0.2 mg/dL (0.2-1) 03/20/19 14:45 AST 11 U/L (15-37) L 03/20/19 14:45 ALT 7 U/L (13-61) L 03/20/19 14:45 Alkaline Phosphatase 98 U/L (45-117) 03/20/19 14:45 Albumin 2.5 g/dl (3.4-5.0) L 03/20/19 14:45 Problem List - Problems (1) Rectal bleed Assessment/Plan: Prolonged bleeding over the last 2 weeks in setting of newly placed cardiac stent and initiation of DAPT. Tachycardic, however, hemodyamically stable. Advised: Large bore IV access Transfuse to keep Hgb above 8 given cardiac history Ideally, given newly placed stent, GI evaluation should take place at tertiary care center with cardiac intervention capabailites. I discussed with the ER and advised contacting [facility] to arrange transfer. I spoke with Dr. Moreau as well as his group follows Mr. Manrique from cardiology standpoint. Agreed with transfer and stated that his group would be seeing him. Code(s): K62.5 - HEMORRHAGE OF ANUS AND RECTUM
--- NOTE | 2019-03-20 18:19 | CONSULT ---
Consult Consult Specialty:: Nephrology Reason for Consultation:: ESRD - History of Present Illness Chief Complaint: malaise and fatigue History of Present Illness: Pt is a 63 year old male with pmhx of esrd, dm, and htn who presents with malaise. He has been having bloodly stools for the alst few days. He complains of weakness and difficulty ambulating. He denies chest pain or shortness of breath. He had recent cardiac stents. - History Source History Provided By: Patient, Medical Record - Past Medical History Cardio/Vascular: Yes: CAD, HTN, Hyperlipdemia Renal/: Yes: Renal Inusuff, Other, Hemodialysis, Other Musculoskeletal: Yes: Other (poorly healed right ankle fracture, +grade 1-2 wound plantar left hallux, +hallux limitus left) Endocrine: Yes: Diabetes Mellitus - Past Surgical History Past Surgical History: Yes: Appendectomy, AV Fistula/Graft, Nephrectomy Additional Surgical History: Bowel surgery in childhood secondary to adhesions - Alcohol/Substance Use Hx Alcohol Use: No History of Substance Use: reports: None - Smoking History Smoking history: Never smoked Have you smoked in the past 12 months: No Aproximately how many cigarettes per day: 0 - Social History Usual Living Arrangement: With Spouse ADL: Independent History of Recent Travel: No Home Medications - Allergies Allergies/Adverse Reactions: Allergies Allergy/AdvReac Type Severity Reaction Status Date / Time Iodinated Contrast Media Allergy Intermediate Hives Verified 03/08/19 15:01 - Home Medications Home Medications: Ambulatory Orders Aspirin [Ecotrin] 81 mg PO DAILY 09/03/15 Fish Oil/Borage/Flax/Om3,6,9 1 [[place] 3-6-9 Complex Softgel] 1 each PO DAILY Amlodipine Besylate [Norvasc -] 10 mg PO DAILY #30 tablet 07/03/18 Cyanocobalamin [Vitamin B12 -] 1,000 mcg PO DAILY tablet 07/03/18 Isosorbide Dinitrate [Isordil] 5 mg PO BIDISORDIL #30 tablet MDD 2 07/03/18 Acetaminophen [Tylenol .Regular Strength -] 650 mg PO Q6H PRN tablet 07/22/18 Atorvastatin Ca [Lipitor] 80 mg PO HS #30 tablet 07/22/18 Pantoprazole Sodium [Protonix -] 40 mg PO DAILY #30 tablet.ec 07/22/18 Aspirin [ASA -] 81 mg PO DAILY tab.chew 03/12/19 Carvedilol 6.25 mg PO BID 03/12/19 Clopidogrel Bisulfate [Clopidogrel] 75 mg PO DAILY 03/12/19 Clopidogrel Bisulfate [Plavix -] 75 mg PO DAILY #30 tablet 03/12/19 Collagenase Clostridium Hist. [Santyl -] 1 applic TP DAILY #1 tube 03/12/19 Hydralazine HCl 25 mg PO TID 03/12/19 Insulin (Levemir) [Levemir Vial] 40 units SQ BID@0700,2200 #2 ea 03/12/19 Insulin Detemir [Levemir Flextouch] 40 unit SQ BID #2 insuln.pen 03/12/19 Insulin Lispro [Humalog Josh Kwikpen] See Protocol SQ AC #1 ins.pen.hf Insulin Lispro [Humalog Josh Kwikpen] See Protocol SQ AC #2 ins.pen.hf Pen Needle, Diabetic [1St Tier Unifine Pentips Plus] 1 each AC #100 dis.needle 03/12/19 Vancomycin 1,000 mg IVPB ASDIR #12 vial 03/12/19 Family Medical History Family History: Denies Review of Systems - Review of Systems Constitutional: reports: Malaise Eyes: reports: No Symptoms HENT: reports: No Symptoms Neck: reports: No Symptoms Cardiovascular: reports: No Symptoms Respiratory: reports: No Symptoms Gastrointestinal: reports: No Symptoms Genitourinary: reports: No Symptoms Musculoskeletal: reports: No Symptoms Integumentary: reports: No Symptoms Neurological: reports: No Symptoms Endocrine: reports: No Symptoms Hematology/Lymphatic: reports: No Symptoms Psychiatric: reports: No Symptoms Physical Exam Vital Signs: Vital Signs Temperature 98.0 F 03/20/19 13:20 Pulse Rate 110 H 03/20/19 16:40 Respiratory Rate 9 L 03/20/19 16:40 Blood Pressure 139/52 L 03/20/19 16:40 O2 Sat by Pulse Oximetry (%) 100 03/20/19 16:40 Constitutional: Yes: Calm Eyes: Yes: Conjunctiva Clear HENT: Yes: Atraumatic Cardiovascular: Yes: Tachycardia, S1, S2 Respiratory: Yes: CTA Bilaterally Gastrointestinal: Yes: Soft Renal/: Yes: WNL Musculoskeletal: Yes: WNL Edema: No Neurological: Yes: Oriented Psychiatric: Yes: Oriented Labs: CBC, BMP 03/20/19 14:45 03/20/19 14:45 Microbiology 07/15/18 05:40 Blood - Peripheral Venous Blood Culture - Final NO GROWTH AFTER 5 DAYS INCUBATION 07/15/18 05:30 Blood - Peripheral Venous Blood Culture - Final NO GROWTH AFTER 5 DAYS INCUBATION 07/18/18 05:35 Blood - Peripheral Venous Blood Culture - Preliminary NO GROWTH OBTAINED AFTER 72 HOURS, INCUBATION TO CONTINUE FOR 2 DAYS. 07/18/18 05:25 Blood - Peripheral Venous Blood Culture - Preliminary NO GROWTH OBTAINED AFTER 72 HOURS, INCUBATION TO CONTINUE FOR 2 DAYS. 07/15/18 05:40 Blood - Peripheral Venous Blood Culture - Preliminary NO GROWTH OBTAINED AFTER 24 HOURS, INCUBATION TO CONTINUE FOR 4 DAYS. 07/15/18 05:30 Blood - Peripheral Venous Blood Culture - Preliminary NO GROWTH OBTAINED AFTER 24 HOURS, INCUBATION TO CONTINUE FOR 4 DAYS. Imaging - Results Chest X-ray: Report Reviewed Problem List - Problems (1) Rectal bleed Code(s): K62.5 - HEMORRHAGE OF ANUS AND RECTUM (2) ESRD (end stage renal disease) Code(s): N18.6 - END STAGE RENAL DISEASE Assessment/Plan Impression 1. ESRD 2. anemia 3. DM 4. GI bleed 5. hyperlipidemia 6. HTN 7. hx of Wilms tumor, s/p left nephrectomy Plan - transfuse prbc - can give lasix if needed - pt being transferred to [facility] ICU - will need renal eval for HD, last HD session was on Saturday - discussed with er
[2019-03-20 22:05] VITALS: TEMP 98.9
[2019-03-20 22:14] VITALS: BP 129/65; PULSE 103
[2019-03-21 00:45] LABS: PHOSPHOROUS 4.8 mg/dL (2.5-4.9)
== END 2019-03-20 22:27 | disposition short-term general hospital (02) ==
LOC: SUPCPDRO 13:13 → JER 13:13
PROC: 3E033GC Introduction of Other Therapeutic Substance into Peripheral Vein, Percutaneous Approach (ICD-10-PCS; principal; 2019-03-20)
PROC: 3E0337Z Introduction of Electrolytic and Water Balance Substance into Peripheral Vein, Percutaneous Approach (ICD-10-PCS; 2019-03-20)
DX: I46.9 Cardiac arrest, cause unspecified (principal); K92.1 Melena; D64.9 Anemia, unspecified
CPT/HCPCS: 36415; 36430; 36511; 70450-TC; 71045-TC-FY; 80053; 82272; 82550; 83735; 84100; 84484; 85025; 85610; 85730; 86850; 86900; 86901; 86922; 93005; 93010; 96361; 96374; 99285-25; J7030; P9034; P9038; P9058